=== PATIENT | female | born 1950 | race Caucasian/White ===

== ENCOUNTER 2016-07-19 09:09 | Outpatient (RCR) | payer MEDICARE ==
[~2016-07-19 09:09] MED LIST: AMLO5TAB2 PO; ASP81CT PO; ASPI-84 PO; ATOR10TA PO; ATOR40TA PO; ATOR40TA70 PO; CLPD75T PO; CPR500T PO; GLIP5TAB13 PO; GLMP4T PO; HYDR-1231 PO; HYDR-707 PO; HYDR-757 PO; INSU100I14 SQ; INSU100I16 SQ; IRB150T PO; LEVO750T6 PO; LISI40TA PO; LSNP10T PO; LSNP20T PO; MECL25TA56 PO; METF-380 PO; METO-270 PO; METO25TA PO; MTP50T PO; NAPR-684 PO; PRM25T PO; TRM50T PO
[2016-07-19 09:19] LABS: BASOPHILS # (AUTO) 0.1 10^3/uL (0.0-0.1); BASOPHILS % (AUTO) 0 % (0-10); EOSINOPHILS # (AUTO) 0.2 10^3/uL (0.0-0.3); EOSINOPHILS % (AUTO) 1 % (0-10); LYMPHOCYTES # (AUTO) 12.8 X 10^3 (1.0-4.0); LYMPHOCYTES % (AUTO) 75 % (12-44); MEAN CORPUSCULAR HEMOGLOBIN 29 PG (25-34); MEAN CORPUSCULAR HGB CONC 32 G/DL (32-36); MEAN CORPUSCULAR VOLUME 92 FL (80-99); MEAN PLATELET VOLUME 12.5 FL (7.4-10.4); MONOCYTES # (AUTO) 0.6 X 10^3 (0.0-1.0); MONOCYTES % (AUTO) 4 % (0-12); NEUTROPHILS # (AUTO) 3.3 X 10^3 (1.8-7.8); NEUTROPHILS % (AUTO) 19 % (42-75); PLATELET COUNT 184 10^3/uL (130-400); RED BLOOD COUNT 4.39 10^6/uL (4.35-5.85); RED CELL DISTRIBUTION WIDTH 14.4 % (10.0-14.5)
[2016-07-19 09:47] LABS: ALANINE AMINOTRANSFERASE 24 U/L (0-55); ALBUMIN 4.3 G/DL (3.2-4.5); ANION GAP 9 MMOL/L (5-14); ASPARTATE AMINO TRANSFERASE 21 U/L (5-34); BILIRUBIN,TOTAL 0.7 MG/DL (0.1-1.0); BLOOD UREA NITROGEN 19 MG/DL (7-18); BUN/CREATININE RATIO 24; CALCIUM 9.2 MG/DL (8.5-10.1); CARBON DIOXIDE 25 MMOL/L (21-32); CHLORIDE 108 MMOL/L (98-107); GFR ESTIMATED > 60; GLUCOSE 90 MG/DL (70-105); LACTATE DEHYDROGENASE 210 U/L (125-220); POTASSIUM 3.7 MMOL/L (3.6-5.0); SODIUM 142 MMOL/L (135-145); TOTAL PROTEIN 6.7 G/DL (6.4-8.2)
== END 2016-10-17 | disposition home or self-care (01) ==
LOC: ONC 09:09
PROVIDERS: ATTEND Internal Medicine Hematology & Oncology
DX: C91.10 Chronic lymphocytic leukemia of B-cell type not having achieved remission (principal); E11.9 Type 2 diabetes mellitus without complications; I10 Essential (primary) hypertension; Z79.4 Long term (current) use of insulin; Z79.899 Other long term (current) drug therapy
CPT/HCPCS: 36415; 80053; 83615; 85025; 99213

== ENCOUNTER 2016-11-20 16:06 | Emergency (ER) | payer MEDICARE ==
[~2016-11-20] VITALS: Ht 160 cm; Wt 86.2 kg
--- NOTE | 2016-11-20 17:08 | Diagnostic Imaging Report ---
PA and lateral views of the chest. INDICATION: Cough and congestion. FINDINGS: The lungs are clear. The heart size is normal. No effusion or pneumothorax. Mediastinum and ajay appear unremarkable. IMPRESSION: Unremarkable exam. Dictated by: Dictated on workstation # [id number]
[2016-11-20] MEDS ORDERED: PRD10T PO (17:43)
[2016-11-20] MEDS ORDERED: AZIT250T5 PO (17:43)
[2016-11-20] MEDS ORDERED: FLUT9.9S NSEACH (17:43)
--- NOTE | 2016-11-20 17:44 | ED General ---
General Chief Complaint: Chest Wall/Rib Pain Stated Complaint: COUGH/BACK PAIN Nursing Triage Note: PT STATES COUGH FOR ABOUT 10 DAYS, CHESTWALL PAIN FROM COUGHING. Nursing Sepsis Screen: No Definite Risk Source of Information: Patient Exam Limitations: No Limitations History of Present Illness Time Seen by Provider: 16:30 Initial Comments Willa is a 66-year-old woman who presents to the emergency room with complaints of cough with associated chest pain that radiates into her back. Pain is worse with coughing, sneezing, and inspiration. She reports feeling flushed but is not febrile. She has been feeling ill for about 2 weeks and symptoms have worsened over the past 2 days. She has some sneezing and constant runny nose as well. She has leukemia for which she sees Dr. Pearson. She also is a diabetic. Allergies and Home Medications Allergies Coded Allergies: Kavitha Known Allergies (Verified Allergy, Unknown, 10/25/15) Home Medications Aspirin 81 Mg Chew, 81 MG PO DAILY, (Reported) Atorvastatin Calcium 40 Mg Tablet, 40 MG PO HS, (Reported) Azithromycin 250 Mg Tablet, 250 MG PO UD, #6 TAKE 2 TABLETS ON DAY ONE THEN TAKE 1 TABLET DAILY FOR FOUR MORE DAYS Prescribed by: EDWIN ADAMS on 11/20/161742 Clopidogrel 75 Mg Tablet, 75 MG PO DAILY, (Reported) Fluticasone Propionate 9.9 Ml [place].susp, 2 SPRAYS NSEACH DAILY, #1 Prescribed by: EDWIN ADAMS on 11/20/161742 Insulin Aspart 300 Units/3 Ml Solution, 30 UNITS SQ TIDAC, (Reported) Insulin Detemir 100 Unit/1 Ml Insuln.pen, 45 UNIT SQ BID, (Reported) Lisinopril 40 Mg Tablet, 40 MG PO DAILY, (Reported) Loratadine 10 Mg Tablet, 10 MG PO DAILY, #30 Ref 11 Prescribed by: EDWIN ADAMS on 11/20/161745 Metoprolol Succinate 25 Mg Tab.er.24h, 25 MG PO DAILY, #90 (Reported) Prednisone 10 Mg Tab, 10 MG PO DAILY, #5 Prescribed by: EDWIN ADAMS on 11/20/161742 Constitutional: see HPI EENTM: see HPI Respiratory: see HPI Cardiovascular: no symptoms reported Gastrointestinal: no symptoms reported Genitourinary: no symptoms reported : No Musculoskeletal: see HPI Skin: no symptoms reported Psychiatric/Neurological: No Symptoms Reported Hematologic/Lymphatic: No Symptoms Reported Past Mbnjvih-Ljzhuh-Zbzhqa Hx Patient Social History Alcohol Use: Denies Use Recreational Drug Use: No Smoking Status: Never a Smoker Recent Foreign Travel: No Contact w/Someone Who Travel: No Recent Infectious Disease Expo: No Recent Hopitalizations: No (HIGH BLOOD SUGAR OVER THE PAST 20 YEARS, CHILDBIRTH X 4, TUBAL) Immunizations Up To Date Tetanus Booster (TDap): Less than 5yrs Date of Pneumonia Vaccine: May 06, 2013 Date of Influenza Vaccine: May 06, 2015 Seasonal Allergies Seasonal Allergies: No Surgeries HX Surgeries: Yes (TUBAL 1978, D&C 1999) Surgeries: 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 Respiratory Hx Respiratory Disorders: No Cardiovascular Hx Cardiac Disorders: Yes Cardiac Disorders: High Cholesterol, Hypertension Neurological Hx Neurological Disorders: Yes Neurological Disorders: Stroke Reproductive System Hx Reproductive Disorders: Yes (D&C 1999 FOR HEAVY MENSTRUAL BLEEDING) Genitourinary Hx Genitourinary Disorders: Yes Genitourinary Disorders: Renal Failure Gastrointestinal Hx Gastrointestinal Disorders: Yes Gastrointestinal Disorders: Gastroesophageal Reflux Musculoskeletal Hx Musculoskeletal Disorders: Yes (ARTHRITIS) Musculoskeletal Disorders: Arthritis Endocrine Hx Endocrine Disorders: Yes Endocrine Disorders: Diabetes, Insulin dep HEENT HX ENT Disorders: Yes Cancer Hx Cancer: Yes Cancer: Leukemia Psychosocial Hx Psychiatric Problems: No Integumentary HX Skin/Integumentary Disorder: No Blood Transfusions Hx Blood Disorders: No Physical Exam Vital Signs Vital Sign - Last 12Hours 11/20/16 16:20 Temp 97.9 Pulse 84 Resp 20 B/P (MAP) 179/74 Pulse Ox 97 O2 Delivery Room Air Capillary Refill : Less Than 3 Seconds General Appearance: No Apparent Distress, WD/WN HEENT: PERRL/EOMI, TMs Normal, Normal ENT Inspection, Pharynx Normal Neck: Normal Inspection Respiratory: Lungs Clear, Normal Breath Sounds, No Accessory Muscle Use, No Respiratory Distress, Wheezing (Wheezing and induced cough with forced expiration), Other (Mild tenderness to palpation over the chest) Cardiovascular: Regular Rate, Rhythm, No Edema, Normal Peripheral Pulses Gastrointestinal: Non Tender, Soft Progress/Results/Core Measures Results/Orders My Orders Vital Signs/I&O Blood Pressure Mean: 109 Progress Note : Progress Note Chest x-ray was read as negative by the radiologist. However, by my interpretation there is some subtle haziness in the left lower lung. Azithromycin is being prescribed as a precaution since cough has been persistent for a couple of weeks. Patient will also be treated for allergies with antihistamine, prednisone, and Flonase. She was instructed to monitor her blood sugars closely while on steroids. Diagnostic Imaging Diagonstic Imaging: Xray Plain Films/CT/US/NM/MRI: chest Comments Chest x-ray viewed by me and report reviewed. See report below: NAME: WILLA BROCK [facility] REC#: [id number] PT STATUS: DEP ER : 1950 PHYSICIAN: EDWIN MARQUEZ MD ADMIT DATE: 11/20/16/ER Signed Date of Exam: 11/20/16 CHEST PA/LAT (2 VIEW) PA and lateral views of the chest. INDICATION: Cough and congestion. FINDINGS: The lungs are clear. The heart size is normal. No effusion or pneumothorax. Mediastinum and ajay appear unremarkable. IMPRESSION: Unremarkable exam. Dictated by: Dictated on workstation # [id number] Dict: 11/20/16 1704 Trans: 11/21/16 0800 Interpreted by: KANDI YATES MD Electronically signed by: KANDI YATES MD 11/21/16 0800 Departure Impression Impression: Primary Impression: Acute bronchitis Qualified Codes: J20.9 - Acute bronchitis, unspecified Additional Impression: Allergic rhinitis Qualified Codes: J30.9 - Allergic rhinitis, unspecified Disposition: 01 HOME, SELF-CARE Condition: Stable Departure-Patient Inst. Decision time for Depature: 17:40 Referrals: [facility] (PCP) Primary Care Physician DELLA MCGEE (Family) Primary Care Physician Patient Instructions: Acute Bronchitis, Adult (DC) Add. Discharge Instructions: Complete your antibiotic as prescribed. Start the steroids, antihistamine, and Flonase as prescribed. Keep your appointment with your doctor on Sunday. Return to the emergency room if symptoms worsen. Monitor your blood sugars closely while taking prednisone. All discharge instructions reviewed with patient and/or family. Voiced understanding. Scripts Loratadine (Loratadine) 10 Mg Tablet 10 MG PO DAILY, #30 TAB 11 Refills Prov: EDWIN MARQUEZ MD 11/20/16 Azithromycin (Azithromycin) 250 Mg Tablet 250 MG PO UD, #6 TAB TAKE 2 TABLETS ON DAY ONE THEN TAKE 1 TABLET DAILY FOR FOUR MORE DAYS Prov: EDWIN MARQUEZ MD 11/20/16 Fluticasone Propionate (Flonase Allergy Relief) 9.9 Ml [place].susp 2 SPRAYS NSEACH DAILY, #1 EA Prov: EDWIN MARQUEZ MD 11/20/16 Prednisone (Prednisone) 10 Mg Tab 10 MG PO DAILY, #5 TAB Prov: EDWIN MARQUEZ MD 11/20/16 EDWIN MARQUEZ MD Nov 20, 2016 17:44
[2016-11-20] MEDS ORDERED: LORA10TA7 PO (17:46)
[2016-11-20 17:55] VITALS: BP 179/74
== END 2016-11-20 17:58 | disposition home or self-care (01) ==
LOC: EDUNIT# 16:06 → ER 16:08
DX: J20.9 Acute bronchitis, unspecified (principal); J30.9 Allergic rhinitis, unspecified; R07.89 Other chest pain; E11.9 Type 2 diabetes mellitus without complications; I10 Essential (primary) hypertension; Z79.4 Long term (current) use of insulin; Z79.899 Other long term (current) drug therapy; Z79.02 Long term (current) use of antithrombotics/antiplatelets
CPT/HCPCS: 71020; 99283

== ENCOUNTER 2016-12-20 09:31 | Outpatient (RCR) | payer MEDICARE ==
[~2016-12-20 09:31] MED LIST changes: +AZIT250T12 PO; +FLUT9.9S NSEACH; +LORA10TA7 PO; -METO-270 PO; +METO-387 PO; +PRD10T PO
[2016-12-20 09:35] LABS: BASOPHILS # (AUTO) 0.1 10^3/uL (0.0-0.1); BASOPHILS % (AUTO) 0 % (0-10); EOSINOPHILS # (AUTO) 0.3 10^3/uL (0.0-0.3); EOSINOPHILS % (AUTO) 2 % (0-10); LYMPHOCYTES # (AUTO) 12.3 X 10^3 (1.0-4.0); LYMPHOCYTES % (AUTO) 78 % (12-44); MEAN CORPUSCULAR HEMOGLOBIN 30 PG (25-34); MEAN CORPUSCULAR HGB CONC 32 G/DL (32-36); MEAN CORPUSCULAR VOLUME 94 FL (80-99); MEAN PLATELET VOLUME 11.6 FL (7.4-10.4); MONOCYTES # (AUTO) 0.5 X 10^3 (0.0-1.0); MONOCYTES % (AUTO) 3 % (0-12); NEUTROPHILS # (AUTO) 2.6 X 10^3 (1.8-7.8); NEUTROPHILS % (AUTO) 16 % (42-75); PLATELET COUNT 187 10^3/uL (130-400); RED BLOOD COUNT 4.27 10^6/uL (4.35-5.85); RED CELL DISTRIBUTION WIDTH 15.2 % (10.0-14.5); WHITE BLOOD COUNT 15.7 10^3/uL (4.3-11.0)
[2016-12-20 10:05] LABS: ALANINE AMINOTRANSFERASE 29 U/L (0-55); ALBUMIN 4.2 G/DL (3.2-4.5); ANION GAP 6 MMOL/L (5-14); ASPARTATE AMINO TRANSFERASE 20 U/L (5-34); BILIRUBIN,TOTAL 0.5 MG/DL (0.1-1.0); BLOOD UREA NITROGEN 16 MG/DL (7-18); BUN/CREATININE RATIO 17; CALCIUM 9.6 MG/DL (8.5-10.1); CARBON DIOXIDE 28 MMOL/L (21-32); CHLORIDE 111 MMOL/L (98-107); CREATININE SERUM 0.93 MG/DL (0.60-1.30); GFR ESTIMATED > 60; GLUCOSE 95 MG/DL (70-105); LACTATE DEHYDROGENASE 205 U/L (125-220); POTASSIUM 4.2 MMOL/L (3.6-5.0); SODIUM 145 MMOL/L (135-145); TOTAL PROTEIN 6.6 G/DL (6.4-8.2)
== END 2017-03-20 | disposition home or self-care (01) ==
LOC: ONC 09:31
PROVIDERS: ATTEND Internal Medicine Hematology & Oncology
DX: C91.10 Chronic lymphocytic leukemia of B-cell type not having achieved remission (principal); E11.9 Type 2 diabetes mellitus without complications; I10 Essential (primary) hypertension; Z79.4 Long term (current) use of insulin; Z79.899 Other long term (current) drug therapy
CPT/HCPCS: 36415; 80053; 83615; 85025; 99213

== ENCOUNTER → 2017-03-01 | Outpatient (CLI) | payer MEDICARE ==
[~2017-03-01] MED LIST changes: -AZIT250T12 PO; +AZIT250T5 PO; +METO-270 PO; -METO-387 PO
--- NOTE | 2017-03-01 09:11 | Diagnostic Imaging Report ---
Right breast diagnostic mammogram with tomography. INDICATION: Right nipple discharge. CAD is utilized. COMPARISON: 06/21/2016. FINDINGS: The right breast demonstrates scattered fibroglandular densities. There are scattered benign-appearing calcifications seen. No mass, architectural distortion, or suspicious cluster of calcifications seen. IMPRESSION: There is no mammographic evidence of malignancy. Ultrasound evaluation pending. ACR BI-RADS Category 0: Incomplete. (Needs additional imaging evaluation). Result letter will be mailed to the patient. Note: At least 10% of breast cancer is not imaged by mammography. Dictated by: Dictated on workstation # [id number]
--- NOTE | 2017-03-01 09:35 | Diagnostic Imaging Report ---
Right breast ultrasound. INDICATION: Right nipple discharge. FINDINGS: The four quadrants and retroareolar region of the right breast are scanned with no underlying abnormality seen. IMPRESSION: Negative study. If symptoms persist consider cytology evaluation of the discharge and MRI evaluation. ACR BI-RADS Category 1: Negative. Result letter will be mailed to the patient. Note: At least 10% of breast cancer is not imaged by mammography. Dictated by: Dictated on workstation # [id number]
== END ==
LOC: RAD 08:42
PROVIDERS: ATTEND Nurse Practitioner Family
DX: N64.52 Nipple discharge (principal)
CPT/HCPCS: 76641

== ENCOUNTER 2017-08-09 10:06 | Emergency (ER) | payer MEDICARE ==
[~2017-08-09] VITALS: Ht 160 cm; Wt 89.4 kg
[~2017-08-09 10:06] MED LIST changes: +AZIT250T12 PO; -AZIT250T5 PO; -METO-270 PO; +METO-387 PO
[2017-08-09 10:59] LABS: BILIRUBIN,URINE NEGATIVE (NEGATIVE); CLARITY,URINE CLEAR; COLOR,URINE YELLOW; GLUCOSE, URINE (UA) NEGATIVE (NEGATIVE); KETONES,URINE NEGATIVE (NEGATIVE); LEUKOCYTE ESTERASE ,URINE 1+ (NEGATIVE); NITRITE,URINE NEGATIVE (NEGATIVE); PH,URINE 5 (5-9); PROTEIN,URINE NEGATIVE (NEGATIVE); UROBILINOGEN,URINE NORMAL (NORMAL)
[2017-08-09 11:06] LABS: BACTERIA,URINE TRACE /HPF
--- NOTE | 2017-08-09 11:19 | ED Abdominal Pain ---
General Chief Complaint: Abdominal/GI Problems Stated Complaint: NAUSEA,HEADACHE,ABD PAIN Nursing Triage Note: ARRIVED VIA AMB TO ROOM 10. COMPLAINS OF LOWER ABD PAIN THAT RADIATES TO LEFT SIDE. DENIE FEVERS BUT HAS BEEN BREAKING OUT IN A SWEAT. Sepsis Screen: No Definite Risk Source of Information: Patient Exam Limitations: No Limitations History of Present Illness Time Seen By Provider: 11:18 Initial Comments To ER with nausea without vomiting, left-sided abdominal pain for 3-4 days. No change in bowel habits. No history of this. Urinary frequency. Timing/Duration: 1-2 Days Severity/Quality: Moderate Location: Generalized Abdomen Radiation: No Radiation Activities at Onset: None Allergies and Home Medications Allergies Coded Allergies: NKANo Known Allergies (Verified Allergy, Unknown, 10/25/15) Home Medications Aspirin 81 Mg Chew, 81 MG PO DAILY, (Reported) Atorvastatin Calcium 40 Mg Tablet, 40 MG PO HS, (Reported) Azithromycin 250 Mg Tablet, 250 MG PO UD, #6 TAKE 2 TABLETS ON DAY ONE THEN TAKE 1 TABLET DAILY FOR FOUR MORE DAYS Prescribed by: EDWIN ADAMS on 11/20/161742 Clopidogrel 75 Mg Tablet, 75 MG PO DAILY, (Reported) Fluticasone Propionate 9.9 Ml [place].susp, 2 SPRAYS NSEACH DAILY, #1 Prescribed by: EDWIN ADAMS on 11/20/161742 Insulin Aspart 300 Units/3 Ml Solution, 30 UNITS SQ TIDAC, (Reported) Insulin Detemir 100 Unit/1 Ml Insuln.pen, 45 UNIT SQ BID, (Reported) Lisinopril 40 Mg Tablet, 40 MG PO DAILY, (Reported) Loratadine 10 Mg Tablet, 10 MG PO DAILY, #30 Ref 11 Prescribed by: EDWIN ADAMS on 11/20/161745 Metoprolol Succinate 25 Mg Tab.er.24h, 25 MG PO DAILY, #90 (Reported) Prednisone 10 Mg Tab, 10 MG PO DAILY, #5 Prescribed by: EDWIN ADAMS on 11/20/161742 Review of Systems Constitutional: see HPI, No chills, No fever EENTM: No Symptoms Reported Respiratory: No Symptoms Reported Cardiovascular: No Symptoms Reported Gastrointestinal: See HPI, Abdominal Pain Genitourinary: No Symptoms Reported Musculoskeletal: no symptoms reported Skin: no symptoms reported Psychiatric/Neurological: No Symptoms Reported Endocrine: No Symptoms Reported Past [place]-Lhtrvf-Teer[place] Hx Patient Social History Alcohol Use: Rarely Uses Recreational Drug Use: No Smoking Status: Never a Smoker Recent Foreign Travel: No Contact w/Someone Who Travel: No Recent Infectious Disease Expo: No Recent Hopitalizations: No (HIGH BLOOD SUGAR OVER THE PAST 20 YEARS, CHILDBIRTH X 4, TUBAL) Immunizations Up To Date Tetanus Booster (TDap): Less than 5yrs Date of Pneumonia Vaccine: May 06, 2013 Date of Influenza Vaccine: May 06, 2015 Seasonal Allergies Seasonal Allergies: No Surgeries History of Surgeries: Yes (TUBAL 1978, D&C 1999) Surgeries: 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 Respiratory History of Respiratory Disorde: No Cardiovascular History of Cardiac Disorders: Yes Cardiac Disorders: High Cholesterol, Hypertension Neurological History of Neurological Disord: Yes Neurological Disorders: Stroke Reproductive System Hx Reproductive Disorders: Yes (D&C 1999 FOR HEAVY MENSTRUAL BLEEDING) Genitourinary Genitourinary Disorders: Renal Failure Gastrointestinal History of Gastrointestinal Di: Yes Gastrointestinal Disorders: Gastroesophageal Reflux Musculoskeletal History of Musculoskeletal Dis: Yes (ARTHRITIS) Musculoskeletal Disorders: Arthritis Endocrine History of Endocrine Disorders: Yes Endocrine Disorders: Diabetes, Insulin dep Cancer History of Cancer: Yes Cancer: Leukemia Psychosocial History of Psychiatric Problem: No Integumentary History of Skin or Integumenta: No Blood Transfusions History of Blood Disorders: No Physical Exam Vital Signs VS - Last 72 Hours, by Label 08/09/17 10:22 Temp 98.3 Pulse 64 Resp 18 B/P (MAP) 142/68 (92) Pulse Ox 97 Capillary Refill : Less Than 3 Seconds General Appearance: WD/WN, no apparent distress HEENT: PERRL/EOMI, normal ENT inspection Respiratory: normal breath sounds, no respiratory distress, no accessory muscle use Cardiovascular: regular rate, rhythm, no murmur Gastrointestinal: normal bowel sounds, soft, tenderness Extremities: normal range of motion, non-tender Neurologic/Psychiatric: alert, normal mood/affect, oriented x 3 Skin: normal color, warm/dry Progress/Results/Core Measures Results/Orders Lab Results Laboratory Tests Test 08/09/17 10:52 08/09/17 11:47 Range/Units Urine Color YELLOW Urine Clarity CLEAR Urine pH 5 5-9 Urine Specific [place] 1.020 1.016-1.022 Urine Protein NEGATIVE NEGATIVE Urine Glucose (UA) NEGATIVE NEGATIVE Urine Ketones NEGATIVE NEGATIVE Urine Nitrite NEGATIVE NEGATIVE Urine Bilirubin NEGATIVE NEGATIVE Urine Urobilinogen NORMAL NORMAL MG/DL Urine Leukocyte Esterase 1+ H NEGATIVE Urine RBC (Auto) 4+ H NEGATIVE Urine RBC 10-25 H /HPF Urine WBC 2-5 /HPF Urine Squamous Epithelial Cells 5-10 /HPF Urine Crystals NONE /LPF Urine Bacteria TRACE /HPF Urine Casts NONE /LPF Urine Mucus SMALL H /LPF Urine Culture Indicated NO White Blood Count 16.5 H 4.3-11.0 10^3/uL Red Blood Count 4.53 4.35-5.85 10^6/uL Hemoglobin 13.4 11.5-16.0 G/DL Hematocrit 36 35-52 % Mean Corpuscular Volume 79 L 80-99 FL Mean Corpuscular Hemoglobin 30 25-34 PG Mean Corpuscular Hemoglobin Concent 37 H 32-36 G/DL Red Cell Distribution Width 14.2 10.0-14.5 % Platelet Count 163 130-400 10^3/uL Mean Platelet Volume 11.3 H 7.4-10.4 FL Neutrophils (%) (Auto) 21 L 42-75 % Lymphocytes (%) (Auto) 74 H 12-44 % Monocytes (%) (Auto) 3 0-12 % Eosinophils (%) (Auto) 1 0-10 % Basophils (%) (Auto) 0 0-10 % Neutrophils # (Auto) 3.5 1.8-7.8 X 10^3 Lymphocytes # (Auto) 12.3 H 1.0-4.0 X 10^3 Monocytes # (Auto) 0.5 0.0-1.0 X 10^3 Eosinophils # (Auto) 0.2 0.0-0.3 10^3/uL Basophils # (Auto) 0.1 0.0-0.1 10^3/uL Neutrophils % (Manual) 18 % Lymphocytes % (Manual) 78 % Monocytes % (Manual) 3 % Reactive Lymphocytes 1 % Anisocytosis SLIGHT Microcytosis SLIGHT Sodium Level 142 135-145 MMOL/L Potassium Level 4.3 3.6-5.0 MMOL/L Chloride Level 106 98-107 MMOL/L Carbon Dioxide Level 25 21-32 MMOL/L Anion Gap 11 5-14 MMOL/L Blood Urea Nitrogen 16 7-18 MG/DL Creatinine 0.83 0.60-1.30 MG/DL Estimat Glomerular Filtration Rate > 60 BUN/Creatinine Ratio 19 Glucose Level 144 H 70-105 MG/DL Calcium Level 9.9 8.5-10.1 MG/DL My Orders Orders - 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 APRN Cbc With Automated Diff (08/09/17 10:43) Basic Metabolic Panel (08/09/17 10:43) Ua Culture If Indicated (08/09/17 10:43) Saline Lock/Iv-Start (08/09/17 11:15) Ct Abd/Pelvis Wo(Kidney Stone) (08/09/17 11:23) Ketorolac Injection (Toradol Injection) (08/09/17 11:30) Manual Differential (08/09/17 11:47) Ondansetron Injection (Zofran Injectio (08/09/17 12:45) Medications Given in ED Current Medications Medications Dose Ordered Sig/Sherrie Route Start Time Stop Time Status Last Admin Dose Admin Ketorolac Tromethamine 30 mg ONCE ONCE IVP 08/09/17 11:30 08/09/17 11:31 DC 08/09/17 12:11 30 MG Ondansetron HCl 4 mg ONCE ONCE IVP 08/09/17 12:45 08/09/17 12:46 08/09/17 12:41 4 MG Vital Signs/I&O Vital Sign - Last 12Hours 08/09/17 10:22 Temp 98.3 Pulse 64 Resp 18 B/P (MAP) 142/68 (92) Pulse Ox 97 Blood Pressure Mean: 92 Departure Communication (Admissions) Progress Notes I did discuss with the patient that the combination of urinary frequency and urgency, hematuria, unilateral abdominal pain on the left side may represent a kidney stone that she has past though we do not see any stones on CT currently. I discussed the elevated white cells on CBC with her. She states they're always high because she has leukemia. I discussed with her and her daughter return precautions which would include fevers, worsening pain or nausea. Impression Impression: Primary Impression: Hematuria Additional Impression: Left sided abdominal pain Disposition: 01 HOME, SELF-CARE Condition: Improved Departure-Patient Inst. Decision time for Depature: 12:46 Referrals: [facility] (PCP) Primary Care Physician DELLA MCGEE (Family) Primary Care Physician Patient Instructions: Acute Abdomen (Belly Pain), Adult (DC), Blood in the Urine (Hematuria) in Adults Add. Discharge Instructions: 1. Follow-up with your doctor as soon as possible. Call today to make an appointment to be seen either tomorrow or the first of the week. Return to the emergency room All discharge instructions reviewed with patient and/or family. Voiced understanding. Scripts Ondansetron (Zofran Odt) 8 Mg Tab.rapdis 8 MG PO Q6H Y for NAUSEA/VOMITING-1ST LINE, #10 TAB Prov: 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 APRN 08/09/17 Hydrocodone/Acetaminophen ([place] 5-325 Tablet) 1 Each Tablet 1 EACH PO Q6H Y for PAIN-MODERATE TO SEVERE, #10 TAB Prov: 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 APRN 08/09/17 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 APRN Aug 09, 2017 11:19
[2017-08-09] MEDS ORDERED: KETOROLAC 30 MG/ML VIAL IVP ONE (11:30)
[2017-08-09 11:55] LABS: BASOPHILS # (AUTO) 0.1 10^3/uL (0.0-0.1); BASOPHILS % (AUTO) 0 % (0-10); EOSINOPHILS # (AUTO) 0.2 10^3/uL (0.0-0.3); EOSINOPHILS % (AUTO) 1 % (0-10); HEMATOCRIT 36 % (35-52); HEMOGLOBIN 13.4 G/DL (11.5-16.0); LYMPHOCYTES # (AUTO) 12.3 X 10^3 (1.0-4.0); LYMPHOCYTES % (AUTO) 74 % (12-44); MEAN CORPUSCULAR HEMOGLOBIN 30 PG (25-34); MEAN CORPUSCULAR HGB CONC 37 G/DL (32-36); MEAN CORPUSCULAR VOLUME 79 FL (80-99); MEAN PLATELET VOLUME 11.3 FL (7.4-10.4); MONOCYTES # (AUTO) 0.5 X 10^3 (0.0-1.0); MONOCYTES % (AUTO) 3 % (0-12); NEUTROPHILS # (AUTO) 3.5 X 10^3 (1.8-7.8); NEUTROPHILS % (AUTO) 21 % (42-75); PLATELET COUNT 163 10^3/uL (130-400); RED BLOOD COUNT 4.53 10^6/uL (4.35-5.85); RED CELL DISTRIBUTION WIDTH 14.2 % (10.0-14.5); WHITE BLOOD COUNT 16.5 10^3/uL (4.3-11.0)
[2017-08-09 12:17] LABS: BUN/CREATININE RATIO 19; CALCIUM 9.9 MG/DL (8.5-10.1); CARBON DIOXIDE 25 MMOL/L (21-32); CHLORIDE 106 MMOL/L (98-107); CREATININE SERUM 0.83 MG/DL (0.60-1.30); GFR ESTIMATED > 60; GLUCOSE 144 MG/DL (70-105); POTASSIUM 4.3 MMOL/L (3.6-5.0); SODIUM 142 MMOL/L (135-145)
--- NOTE | 2017-08-09 12:18 | Diagnostic Imaging Report ---
PROCEDURE: CT urinary tract, rule out kidney stone. TECHNIQUE: Multiple contiguous axial images were obtained through the abdomen and pelvis without the use of intravenous contrast. DATE: August 09, 2017. COMPARISON: CT neck, chest, abdomen and pelvis December 18, 2012. INDICATION: 67-year-old female, bilateral lower quadrant abdominal pain. FINDINGS: There are limitations for evaluation of the abdominal organs, neoplastic processes, abscess, and limited evaluation of the vasculature relating to the lack of intravenous contrast. The visualized portions of the lung bases are clear. The dome of the liver is not entirely included in the [id number]. The liver is normal in size and contour. There is cholelithiasis without findings to suggest acute cholecystitis. There is no intrahepatic or extrahepatic bile duct dilation. The main pancreatic duct is not abnormally dilated. Unremarkable noncontrast evaluation of the pancreatic parenchyma. The spleen is not enlarged. The adrenal glands are unremarkable. There is a low-attenuation right renal lesion on axial image 63 measuring 1.2 cm in size with internal attenuation of 7 Hounsfield units. This is consistent with a benign renal cyst. There is a low-attenuation 11 mm right renal lesion consistent with benign cyst on axial image 53. There is no identified renal or ureteral stone. The urinary collecting systems are not distended. There is mild bilateral nonspecific perinephric stranding. The urinary bladder is unremarkable. There is diverticulosis without evidence of acute diverticulitis. The appendix is best seen on axial image 88 and adjacent sequential images. There is no evidence of acute appendicitis. There is no free intraperitoneal air. There is no drainable fluid collection. There is no free pelvic fluid. There are atherosclerotic calcifications. There is no identified abnormally enlarged lymph node within the abdomen or pelvis which meets CT size criteria for adenopathy. There is mild to moderate osteoarthritis of both hips. There is degenerative-type enthesopathy. There is no identified acute bony abnormality. IMPRESSION: CT ABDOMEN AND PELVIS. 1. No identified acute abnormality within the abdomen or pelvis. 2. Cholelithiasis without evidence of acute cholecystitis. 3. Benign renal cysts. Dictated by: Dictated on workstation # [id number]
[2017-08-09 12:32] LABS: NEUTROPHILS % (MANUAL) 18 %
[2017-08-09 12:33] LABS: ANISOCYTOSIS SLIGHT; LYMPHOCYTES % (MANUAL) 78 %; MICROCYTOSIS SLIGHT; MONOCYTES % (MANUAL) 3 %; REACTIVE LYMPHOCYTES 1 %
[2017-08-09] MEDS ORDERED: ONDANSETRON 4 MG/2 ML (SDV) Z0FRAN IVP ONE (12:45)
[2017-08-09] MEDS ORDERED: HYDR-757 PO (12:47)
[2017-08-09] MEDS ORDERED: ONDA8TAB9 PO (12:47)
[2017-08-09 13:07] VITALS: BP 145/77
--- OUTSIDE RECORDS SUMMARY | 2017-08-10 22:15 | XMS REPORT ---
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 Active 73258845 Problem Essential hypertension I10 Active 54496593 Problem Type 2 diabetes mellitus with diabetic neuropathy E11.40 Active 29432033 Problem detention current use of insulin Z79.4 Active 696249601 ALLERGIES Substance Reaction Event Type Date Status Milk of Magnesia Unknown Drug Allergy Jul, Active Maalox Unknown Drug Allergy Jul, Active SOCIAL HISTORY No smoking Hx information available PLAN OF CARE Activity Details Follow Up after 08/09/16 Reason:DM VITAL SIGNS Height 66 in 2016-07-19 Weight 192.1 lbs 2016-07-19 Temperature 97.8 degrees Fahrenheit 2016-07-19 Heart Rate 76 bpm 2016-07-19 Respiratory Rate 18 2016-07-19 BMI 31.00 kg/m2 2016-07-19 Blood pressure systolic 146 mmHg 2016-07-19 Blood pressure diastolic 78 mmHg 2016-07-19 MEDICATIONS Medication Instructions Dosage Frequency Start Date End Date Duration Status Lipitor 40 mg Orally Once a day 1 tablet 24h 90 days Active Glimepiride 2mg Orally twice a day 1 tablet 12h 30 day(s) Active Rusty Contour Next EZ strips intradermal tid and prn tid and prn Active Pen [place] 31G X 8 MM 1 Active [place] Contour Monitor w/Device as directed Apr, Active Lexapro 10 mg Orally Once a day 1 tablet 24h 30 day(s) Active Levemir FlexTouch 100 UNIT/ML Subcutaneous 2 times a day per insulin sliding scale protocol 40 units Active Contour Blood Glucose System Test Strips 24h Active Plavix 75 MG Orally Once a day 1 tablet 24h Active NovoLog Flexpen 100 UNIT/ML Subcutaneous with meals INJECT 10 UNITS Active Toprol XL 25 MG Orally 2 times a day 1/2 tablet 12h Active Lisinopril 40 mg Orally Once a day 1 tablet 24h Active RESULTS No Results PROCEDURES Procedure Date Ordered Related Diagnosis Body Site [facility] VISIT ESTABLISHED PATIENT Jul 19, 2016 Office Visit, Est Pt., Level 3 Jul 19, 2016 IMMUNIZATIONS No Known Immunizations
--- OUTSIDE RECORDS SUMMARY | 2017-08-10 22:15 | XMS REPORT ---
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 355584972 Problem Essential hypertension I10 Active 75064185 Problem 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 Active 73731241 Problem Mixed hyperlipidemia E78.2 Active 785984827 ALLERGIES Substance Reaction Event Type Date Status Milk of Magnesia Unknown Drug Allergy Sep, Active Maalox Unknown Drug Allergy Sep, Active SOCIAL HISTORY Never Assessed PLAN OF CARE Activity Details Follow Up 4 Weeks Reason:DM VITAL SIGNS Height 66 in 2016-09-13 Weight 193 lbs 2016-09-13 Temperature 97.9 degrees Fahrenheit 2016-09-13 Heart Rate 70 bpm 2016-09-13 Respiratory Rate 20 2016-09-13 BMI 31.15 kg/m2 2016-09-13 Blood pressure systolic 122 mmHg 2016-09-13 Blood pressure diastolic 80 mmHg 2016-09-13 MEDICATIONS Medication Instructions Dosage Frequency Start Date End Date Duration Status Pen [place] 31G X 8 MM 1 Active Plavix 75 MG Orally Once a day 1 tablet 24h Active Contour Blood Glucose System Test Strips 24h Active Lipitor 40 mg Orally Once a day 1 tablet 24h 90 days Active Lexapro 10 mg Orally Once a day 1 tablet 24h 30 day(s) Active Glimepiride 2mg Orally twice a day 1 tablet 12h 30 day(s) Active Rusty Contour Next EZ strips intradermal tid and prn tid and prn Active Lisinopril 40 mg Orally Once a day 1 tablet 24h 30 Active Toprol XL 25 MG Orally Once a day 1 tablet 24h Active NovoLog Flexpen 100 UNIT/ML Subcutaneous with meals 10 units Active Farxiga 10 mg Orally Once a day 1 tablet 24h Sep, Oct, 28 days Active [employer] Contour Monitor w/Device as directed Apr, Active Levemir FlexTouch 100 UNIT/ML Subcutaneous 2 times a day per insulin sliding scale protocol 40 units Active RESULTS Name Result Date Reference Range A1C (IN HOUSE) 2016-09-13 A1C IN HOUSE 11.6 4.3 - 5.6 % Previous A1c 9.2 Lot [id number] Exp date 06/23 MICROALBUMIN/CREATININE RATIO, URINE 2016-09-13 Creatinine, Urine 220.3 Not Estab. Microalbumin, Urine 50.1 Not Estab. Microalb/Creat Ratio 22.7 0.0-30.0 CMP 2016-09-13 Glucose, Serum 184 65-99 BUN 17 8-27 Creatinine, Serum 0.74 0.57-1.00 eGFR If NonAfricn Am 85 >59 eGFR If Africn Am 98 >59 BUN/Creatinine Ratio 23 11-26 Sodium, Serum 142 134-144 Potassium, Serum 4.3 3.5-5.2 Chloride, Serum 100 96-106 Carbon Dioxide, Total 26 18-29 Calcium, Serum 9.6 8.7-10.3 Protein, Total, Serum 6.8 6.0-8.5 Albumin, Serum 4.5 3.6-4.8 Globulin, Total 2.3 1.5-4.5 A/G Ratio 2.0 1.1-2.5 Bilirubin, Total 0.6 0.0-1.2 Alkaline Phosphatase, S 90 39-117 AST (SGOT) 20 0-40 ALT (SGPT) 24 0-32 MICROALBUMIN, URINE (IN HOUSE) 2016-09-13 MICROALBUMIN Abnormal Lot # [id number] Exp date Clarity Clear Color Dark Yellow ALB 80mg/L CRE 300mg/dL A:C (IN HOUSE) 30-300mg/g Control Control Lot # Exp date PROCEDURES Procedure Date Ordered Result Body Site GLYCATED HEMOGLOBIN TEST Sep 13, 2016 [facility] Sep 13, 2016 [facility] VISIT ESTABLISHED PATIENT Sep 13, 2016 MICROALBUMIN, SEMIQUANT Sep 13, 2016 VENIPUNCT, ROUTINE* Sep 13, 2016 IMMUNIZATIONS No Known Immunizations MEDICAL (GENERAL) HISTORY Type Description Date Medical History hypertension Medical History hyperlipidemia Medical History type II diabetes Medical History Arthritis-knees and hips Medical History stroke-05/2011 Medical History leukemia (CML)--dx November 2012--Sees Michel at [facility] Medical History Dysphagia, unspecified Medical History Unspecified hereditary and idiopathic peripheral neuropathy Surgical History dilatation and curettage 03/2000 Surgical History tubal ligation 1978 Hospitalization History Via [facility] admit for stroke 05/2011 Hospitalization History Via [facility] for elevated blood sugars 09/2010
--- OUTSIDE RECORDS SUMMARY | 2017-08-10 22:15 | XMS REPORT ---
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 494870783 Problem Essential hypertension I10 Active 52198520 Problem 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 Active 62555713 Problem Mixed hyperlipidemia E78.2 Active 925102641 ALLERGIES No Information SOCIAL HISTORY Never Assessed PLAN OF CARE VITAL SIGNS MEDICATIONS Medication Instructions Dosage Frequency Start Date End Date Duration Status BD Ultra-Fine Pen [place] 29G X 12.7MM subcutaneously 5 times per day Inject December, Active RESULTS No Results PROCEDURES No Known procedures IMMUNIZATIONS No Known Immunizations MEDICAL (GENERAL) HISTORY Type Description Date Medical History hypertension Medical History hyperlipidemia Medical History type II diabetes Medical History Arthritis-knees and hips Medical History stroke-05/2011 Medical History leukemia (CML)--dx November 2012--Sees Michel at [facility] Medical History Dysphagia, unspecified Medical History Unspecified hereditary and idiopathic peripheral neuropathy Surgical History dilatation and curettage 03/2000 Surgical History tubal ligation 1979 Hospitalization History Via [facility] admit for stroke 05/2011 Hospitalization History Via [facility] for elevated blood sugars 09/2010
--- OUTSIDE RECORDS SUMMARY | 2017-08-10 22:16 | XMS REPORT ---
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 143282493 Problem Essential hypertension I10 Active 12836084 Problem 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 Active 48759353 Problem Mixed hyperlipidemia E78.2 Active 633291226 ALLERGIES Substance Reaction Event Type Date Status Milk of Magnesia Unknown Drug Allergy Sep, Active Maalox Unknown Drug Allergy Sep, Active SOCIAL HISTORY Never Assessed PLAN OF CARE Activity Details Follow Up prn Reason: VITAL SIGNS Height 66 in 2016-09-21 Weight 192 lbs 2016-09-21 BMI 30.99 kg/m2 2016-09-21 Blood pressure systolic 110 mmHg 2016-09-21 Blood pressure diastolic 80 mmHg 2016-09-21 MEDICATIONS Medication Instructions Dosage Frequency Start Date End Date Duration Status Lexapro 10 mg Orally Once a day 1 tablet 24h 30 day(s) Active Lisinopril 40 mg Orally Once a day 1 tablet 24h 30 Active Rusty Contour Monitor w/Device as directed Apr, Active Levemir FlexTouch 100 UNIT/ML Subcutaneous 2 times a day per insulin sliding scale protocol 40 units Active Lipitor 40 mg Orally Once a day 1 tablet 24h 90 Active Farxiga 10 mg Orally Once a day 1 tablet 24h Sep, Oct, 28 days Active Glimepiride 2mg Orally twice a day 1 tablet 12h 30 day(s) Active Toprol XL 25 MG Orally Once a day 1 tablet 24h Active NovoLog Flexpen 100 UNIT/ML Subcutaneous with meals 10 units Active Contour Blood Glucose System Test Strips 24h Active Pen [place] 31G X 8 MM 1 Active Plavix 75 MG Orally Once a day 1 tablet 24h Active Rusty Contour Next EZ strips intradermal tid and prn tid and prn Active RESULTS No Results PROCEDURES Procedure Date Ordered Result Body Site DRAIN/INJECT, JOINT/BURSA Sep 21, 2016 [facility] ESTABL[facility] PATIENT Sep 21, 2016 DEPO MEDROL 80 MG/ML Sep 21, 2016 IMMUNIZATIONS No Known Immunizations MEDICAL (GENERAL) HISTORY Type Description Date Medical History hypertension Medical History hyperlipidemia Medical History type II diabetes Medical History Arthritis-knees and hips Medical History stroke-05/2011 Medical History leukemia (CML)--dx November 2012--Sees Michel at [facility] Medical History Dysphagia, unspecified Medical History Unspecified hereditary and idiopathic peripheral neuropathy Surgical History dilatation and curettage 03/2000 Surgical History tubal ligation 1979 Hospitalization History Via [facility] admit for stroke 05/2011 Hospitalization History Via [facility] for elevated blood sugars 09/2010
--- OUTSIDE RECORDS SUMMARY | 2017-08-10 22:16 | XMS REPORT ---
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
--- OUTSIDE RECORDS SUMMARY | 2017-08-10 22:18 | XMS REPORT | Continuity of Care Document ---
Author Author [facility] Address Unknown Phone Unavailable Allergies Active Description Code Type Severity Reaction Onset Reported/Identified Relationship to Patient Clinical Status Yes Maalox Drug Allergy N/A N/A 10/17/2010 Yes Milk of Magnesia Drug Allergy N/A N/A 10/17/2010 Yes Maalox Drug Allergy 10/17/2010 Yes Milk of Magnesia Drug Allergy 10/17/2010 Yes nonsteroidal anti-inflammatory agent Drug Allergy 10/17/2010 Yes NKANo Known Allergies NKA Miscellaneous Allergy Unknown N/A 10/25/2015 Medications There is no data. Problems Date Dx Coded Attending Type Code Diagnosis Diagnosed By 10/08/2010 Ot 250.02 10/08/2010 Ot 285.9 10/08/2010 Ot 401.9 10/08/2010 Ot 593.9 10/08/2010 Ot V58.67 10/08/2010 Ot V58.69 10/17/2010 TIN OCASIO MD 250.02 DIABETES MELLITUS TYPE 2 - UNCOMPLICATED, UNCONTROLLED 10/17/2010 TIN OCASIO MD 585.9 CHRONIC RENAL FAILURE 10/17/2010 CATALINO PEREZ DO 250.02 DIABETES MELLITUS TYPE 2 - UNCOMPLICATED, UNCONTROLLED 10/17/2010 CATALINO PEREZ DO 585.9 CHRONIC RENAL FAILURE 10/17/2010 DANIEL CRISTINA MD 250.02 DIABETES MELLITUS TYPE 2 - UNCOMPLICATED, UNCONTROLLED 10/17/2010 DANIEL CRISTINA MD 585.9 CHRONIC RENAL FAILURE 10/17/2010 250.02 DIABETES MELLITUS TYPE 2 - UNCOMPLICATED, UNCONTROLLED 10/17/2010 585.9 CHRONIC RENAL FAILURE 10/17/2010 250.02 DIABETES MELLITUS TYPE 2 - UNCOMPLICATED, UNCONTROLLED 10/17/2010 585.9 CHRONIC RENAL FAILURE 10/17/2010 250.02 DIABETES MELLITUS TYPE 2 - UNCOMPLICATED, UNCONTROLLED 10/17/2010 585.9 CHRONIC RENAL FAILURE 10/17/2010 250.02 DIABETES MELLITUS TYPE 2 - UNCOMPLICATED, UNCONTROLLED 10/17/2010 585.9 CHRONIC RENAL FAILURE 10/17/2010 250.02 DIABETES MELLITUS TYPE 2 - UNCOMPLICATED, UNCONTROLLED 10/17/2010 585.9 CHRONIC RENAL FAILURE 10/17/2010 DANIEL CRISTINA MD 250.02 DIABETES MELLITUS TYPE 2 - UNCOMPLICATED, UNCONTROLLED 10/17/2010 DANIEL CRISTINA MD 585.9 CHRONIC RENAL FAILURE 10/17/2010 DANIEL CRISTINA MD 250.02 DIABETES MELLITUS TYPE 2 - UNCOMPLICATED, UNCONTROLLED 10/17/2010 DANIEL CRISTINA MD 585.9 CHRONIC RENAL FAILURE 10/17/2010 CATALINO PEREZ DO K 250.02 DIABETES MELLITUS TYPE 2 - UNCOMPLICATED, UNCONTROLLED 10/17/2010 CATALINO PEREZ DO K 585.9 CHRONIC RENAL FAILURE 10/17/2010 TIN OCASIO MD 250.02 DIABETES MELLITUS TYPE 2 - UNCOMPLICATED, UNCONTROLLED 10/17/2010 TIN OCASIO MD 585.9 CHRONIC RENAL FAILURE 10/17/2010 MADL ECHOCARDIOGRAPH TECHNICIAN, DELLA L 250.02 DIABETES MELLITUS TYPE 2 - UNCOMPLICATED, UNCONTROLLED 10/17/2010 MADL ECHOCARDIOGRAPH TECHNICIAN, DELLA L 585.9 CHRONIC RENAL FAILURE 10/17/2010 MADL ECHOCARDIOGRAPH TECHNICIAN, DELLA L 250.02 DIABETES MELLITUS TYPE 2 - UNCOMPLICATED, UNCONTROLLED 10/17/2010 MADL ECHOCARDIOGRAPH TECHNICIAN, DELLA L 585.9 CHRONIC RENAL FAILURE 10/17/2010 MADL ECHOCARDIOGRAPH TECHNICIAN, DELLA L 250.02 DIABETES MELLITUS TYPE 2 - UNCOMPLICATED, UNCONTROLLED 10/17/2010 MADL ECHOCARDIOGRAPH TECHNICIAN, DELLA L 585.9 CHRONIC RENAL FAILURE 10/17/2010 MADL ECHOCARDIOGRAPH TECHNICIAN, DELLA L 250.02 DIABETES MELLITUS TYPE 2 - UNCOMPLICATED, UNCONTROLLED 10/17/2010 MADL ECHOCARDIOGRAPH TECHNICIAN, DELLA L 585.9 CHRONIC RENAL FAILURE 10/17/2010 250.02 DIABETES MELLITUS TYPE 2 - UNCOMPLICATED, UNCONTROLLED 10/17/2010 585.9 CHRONIC RENAL FAILURE 10/17/2010 MADL ECHOCARDIOGRAPH TECHNICIAN, DELLA L 250.02 DIABETES MELLITUS TYPE 2 - UNCOMPLICATED, UNCONTROLLED 10/17/2010 MADL ECHOCARDIOGRAPH TECHNICIAN, DELLA L 585.9 CHRONIC RENAL FAILURE 10/17/2010 WAYNE PEREZ DOA K 250.02 DIABETES MELLITUS TYPE 2 - UNCOMPLICATED, UNCONTROLLED 10/17/2010 CATALINO PEREZ DO 585.9 CHRONIC RENAL FAILURE 10/17/2010 CATALINO PEREZ DO K 250.02 DIABETES MELLITUS TYPE 2 - UNCOMPLICATED, UNCONTROLLED 10/17/2010 CATALINO PEREZ DO 585.9 CHRONIC RENAL FAILURE 11/02/2010 TIN OCASIO MD 250.90 DIABETES MELLITUS TYPE 2 WITH COMPLICATION 11/02/2010 CATALINO PEREZ DO K 250.90 DIABETES MELLITUS TYPE 2 WITH COMPLICATION 11/02/2010 DANIEL CRISTINA MD 250.90 DIABETES MELLITUS TYPE 2 WITH COMPLICATION 11/02/2010 250.90 DIABETES MELLITUS TYPE 2 WITH COMPLICATION 11/02/2010 250.90 DIABETES MELLITUS TYPE 2 WITH COMPLICATION 11/02/2010 250.90 DIABETES MELLITUS TYPE 2 WITH COMPLICATION 11/02/2010 250.90 DIABETES MELLITUS TYPE 2 WITH COMPLICATION 11/02/2010 250.90 DIABETES MELLITUS TYPE 2 WITH COMPLICATION 11/02/2010 DANIEL CRISTINA MD 250.90 DIABETES MELLITUS TYPE 2 WITH COMPLICATION 11/02/2010 DANIEL CRISTINA MD 250.90 DIABETES MELLITUS TYPE 2 WITH COMPLICATION 11/02/2010 CATALINO PREEZ DO K 250.90 DIABETES MELLITUS TYPE 2 WITH COMPLICATION 11/02/2010 TIN OCASIO MD 250.90 DIABETES MELLITUS TYPE 2 WITH COMPLICATION 11/02/2010 MADTaye ECHOCARDIOGRAPH TECHNICIAN, DELLA L 250.90 DIABETES MELLITUS TYPE 2 WITH COMPLICATION 11/02/2010 EVERARDO ECHOCARDIOGRAPH TECHNICIAN, DELLA L 250.90 DIABETES MELLITUS TYPE 2 WITH COMPLICATION 11/02/2010 MADL ECHOCARDIOGRAPH TECHNICIAN, DELLA L 250.90 DIABETES MELLITUS TYPE 2 WITH COMPLICATION 11/02/2010 MADL ECHOCARDIOGRAPH TECHNICIAN, DELLA L 250.90 DIABETES MELLITUS TYPE 2 WITH COMPLICATION 11/02/2010 250.90 DIABETES MELLITUS TYPE 2 WITH COMPLICATION 11/02/2010 EVERARDO ECHOCARDIOGRAPH TECHNICIAN, DELLA L 250.90 DIABETES MELLITUS TYPE 2 WITH COMPLICATION 11/02/2010 CATALINO PEREZ DO K 250.90 DIABETES MELLITUS TYPE 2 WITH COMPLICATION 11/02/2010 CATALINO PEREZ DO K 250.90 DIABETES MELLITUS TYPE 2 WITH COMPLICATION 11/16/2010 TIN OCASIO MD 250.42 DIABETES WITH RENAL MANIFESTATIONS TYPE II OR UNSPECIFIED TYPE UNCONTROLLED 11/16/2010 TIN OCASIO MD 268.9 UNSPECIFIED VITAMIN D DEFICIENCY 11/16/2010 TIN OCASIO MD 782.3 EDEMA 11/16/2010 CATALINO PEREZ DO 250.42 DIABETES WITH RENAL MANIFESTATIONS TYPE II OR UNSPECIFIED TYPE UNCONTROLLED 11/16/2010 CATALINO PEREZ DO 268.9 UNSPECIFIED VITAMIN D DEFICIENCY 11/16/2010 CATALINO PEREZ DO 782.3 EDEMA 11/16/2010 DANIEL CRISTINA MD 250.42 DIABETES WITH RENAL MANIFESTATIONS TYPE II OR UNSPECIFIED TYPE UNCONTROLLED 11/16/2010 DANIEL CRISTINA MD 268.9 UNSPECIFIED VITAMIN D DEFICIENCY 11/16/2010 DANIEL CRISTINA MD 782.3 EDEMA 11/16/2010 250.42 DIABETES WITH RENAL MANIFESTATIONS TYPE II OR UNSPECIFIED TYPE UNCONTROLLED 11/16/2010 268.9 UNSPECIFIED VITAMIN D DEFICIENCY 11/16/2010 782.3 EDEMA 11/16/2010 250.42 DIABETES WITH RENAL MANIFESTATIONS TYPE II OR UNSPECIFIED TYPE UNCONTROLLED 11/16/2010 268.9 UNSPECIFIED VITAMIN D DEFICIENCY 11/16/2010 782.3 EDEMA 11/16/2010 250.42 DIABETES WITH RENAL MANIFESTATIONS TYPE II OR UNSPECIFIED TYPE UNCONTROLLED 11/16/2010 268.9 UNSPECIFIED VITAMIN D DEFICIENCY 11/16/2010 782.3 EDEMA 11/16/2010 250.42 DIABETES WITH RENAL MANIFESTATIONS TYPE II OR UNSPECIFIED TYPE UNCONTROLLED 11/16/2010 268.9 UNSPECIFIED VITAMIN D DEFICIENCY 11/16/2010 782.3 EDEMA 11/16/2010 250.42 DIABETES WITH RENAL MANIFESTATIONS TYPE II OR UNSPECIFIED TYPE UNCONTROLLED 11/16/2010 268.9 UNSPECIFIED VITAMIN D DEFICIENCY 11/16/2010 782.3 EDEMA 11/16/2010 DANIEL CRISTINA MD 250.42 DIABETES WITH RENAL MANIFESTATIONS TYPE II OR UNSPECIFIED TYPE UNCONTROLLED 11/16/2010 DANIEL CRISTINA MD 268.9 UNSPECIFIED VITAMIN D DEFICIENCY 11/16/2010 DANIEL CRISTINA MD 782.3 EDEMA 11/16/2010 DANIEL CRISTINA MD 250.42 DIABETES WITH RENAL MANIFESTATIONS TYPE II OR UNSPECIFIED TYPE UNCONTROLLED 11/16/2010 DANIEL CRISTINA MD 268.9 UNSPECIFIED VITAMIN D DEFICIENCY 11/16/2010 DANIEL CRISTINA MD 782.3 EDEMA 11/16/2010 CATALINO PEREZ DO 250.42 DIABETES WITH RENAL MANIFESTATIONS TYPE II OR UNSPECIFIED TYPE UNCONTROLLED 11/16/2010 PEREZ DO, CATALINO K 268.9 UNSPECIFIED VITAMIN D DEFICIENCY 11/16/2010 PEREZ DO, CATALINO K 782.3 EDEMA 11/16/2010 TIN OCASIO MD 250.42 DIABETES WITH RENAL MANIFESTATIONS TYPE II OR UNSPECIFIED TYPE UNCONTROLLED 11/16/2010 TIN OCASIO MD 268.9 UNSPECIFIED VITAMIN D DEFICIENCY 11/16/2010 TIN OCASIO MD 782.3 EDEMA 11/16/2010 MADL ECHOCARDIOGRAPH TECHNICIAN, DELLA L 250.42 DIABETES WITH RENAL MANIFESTATIONS TYPE II OR UNSPECIFIED TYPE UNCONTROLLED 11/16/2010 MADL ECHOCARDIOGRAPH TECHNICIAN, DELLA L 268.9 UNSPECIFIED VITAMIN D DEFICIENCY 11/16/2010 MADL ECHOCARDIOGRAPH TECHNICIAN, DELLA L 782.3 EDEMA 11/16/2010 MADL ECHOCARDIOGRAPH TECHNICIAN, DELLA L 250.42 DIABETES WITH RENAL MANIFESTATIONS TYPE II OR UNSPECIFIED TYPE UNCONTROLLED 11/16/2010 MADL ECHOCARDIOGRAPH TECHNICIAN, DELLA L 268.9 UNSPECIFIED VITAMIN D DEFICIENCY 11/16/2010 MADL ECHOCARDIOGRAPH TECHNICIAN, DELLA L 782.3 EDEMA 11/16/2010 MADL ECHOCARDIOGRAPH TECHNICIAN, DELLA L 250.42 DIABETES WITH RENAL MANIFESTATIONS TYPE II OR UNSPECIFIED TYPE UNCONTROLLED 11/16/2010 MADL ECHOCARDIOGRAPH TECHNICIAN, DELLA L 268.9 UNSPECIFIED VITAMIN D DEFICIENCY 11/16/2010 MADL ECHOCARDIOGRAPH TECHNICIAN, DELLA L 782.3 EDEMA 11/16/2010 MADL ECHOCARDIOGRAPH TECHNICIAN, DELLA L 250.42 DIABETES WITH RENAL MANIFESTATIONS TYPE II OR UNSPECIFIED TYPE UNCONTROLLED 11/16/2010 MADL ECHOCARDIOGRAPH TECHNICIAN, DELLA L 268.9 UNSPECIFIED VITAMIN D DEFICIENCY 11/16/2010 MADL ECHOCARDIOGRAPH TECHNICIAN, DELLA L 782.3 EDEMA 11/16/2010 250.42 DIABETES WITH RENAL MANIFESTATIONS TYPE II OR UNSPECIFIED TYPE UNCONTROLLED 11/16/2010 268.9 UNSPECIFIED VITAMIN D DEFICIENCY 11/16/2010 782.3 EDEMA 11/16/2010 MADL ECHOCARDIOGRAPH TECHNICIAN, DELLA L 250.42 DIABETES WITH RENAL MANIFESTATIONS TYPE II OR UNSPECIFIED TYPE UNCONTROLLED 11/16/2010 MADL ECHOCARDIOGRAPH TECHNICIAN, DELLA L 268.9 UNSPECIFIED VITAMIN D DEFICIENCY 11/16/2010 MADL ECHOCARDIOGRAPH TECHNICIAN, DELLA L 782.3 EDEMA 11/16/2010 PEREZ DO, CATALINO K 250.42 DIABETES WITH RENAL MANIFESTATIONS TYPE II OR UNSPECIFIED TYPE UNCONTROLLED 11/16/2010 PEREZ DO, CATALINO K 268.9 UNSPECIFIED VITAMIN D DEFICIENCY 11/16/2010 PEREZ DO, CATALINO K 782.3 EDEMA 11/16/2010 PEREZ DO, CATALINO K 250.42 DIABETES WITH RENAL MANIFESTATIONS TYPE II OR UNSPECIFIED TYPE UNCONTROLLED 11/16/2010 PEREZ DO, CATALINO K 268.9 UNSPECIFIED VITAMIN D DEFICIENCY 11/16/2010 PEREZ DO, CATALINO K 782.3 EDEMA 02/22/2011 TIN OCASIO MD 357.2 POLYNEUROPATHY IN DIABETES 02/22/2011 TIN OCASIO MD 368.8 OTHER SPECIFIED VISUAL DISTURBANCES 02/22/2011 PEREZ DO, CATALINO K 357.2 POLYNEUROPATHY IN DIABETES 02/22/2011 PEREZ DO CATALINO K 368.8 OTHER SPECIFIED VISUAL DISTURBANCES 02/22/2011 DANIEL CRISTINA MD 357.2 POLYNEUROPATHY IN DIABETES 02/22/2011 DANIEL CRISTINA MD 368.8 OTHER SPECIFIED VISUAL DISTURBANCES 02/22/2011 357.2 POLYNEUROPATHY IN DIABETES 02/22/2011 368.8 OTHER SPECIFIED VISUAL DISTURBANCES 02/22/2011 357.2 POLYNEUROPATHY IN DIABETES 02/22/2011 368.8 OTHER SPECIFIED VISUAL DISTURBANCES 02/22/2011 357.2 POLYNEUROPATHY IN DIABETES 02/22/2011 368.8 OTHER SPECIFIED VISUAL DISTURBANCES 02/22/2011 357.2 POLYNEUROPATHY IN DIABETES 02/22/2011 368.8 OTHER SPECIFIED VISUAL DISTURBANCES 02/22/2011 357.2 POLYNEUROPATHY IN DIABETES 02/22/2011 368.8 OTHER SPECIFIED VISUAL DISTURBANCES 02/22/2011 DANIEL CRISTINA MD 357.2 POLYNEUROPATHY IN DIABETES 02/22/2011 DANIEL CRISTINA MD 368.8 OTHER SPECIFIED VISUAL DISTURBANCES 02/22/2011 DANIEL CRISTINA MD 357.2 POLYNEUROPATHY IN DIABETES 02/22/2011 DANIEL CRISTINA MD 368.8 OTHER SPECIFIED VISUAL DISTURBANCES 02/22/2011 PEREZ DO CATALINO K 357.2 POLYNEUROPATHY IN DIABETES 02/22/2011 PEREZ DO CATALINO K 368.8 OTHER SPECIFIED VISUAL DISTURBANCES 02/22/2011 TIN OCASIO MD 357.2 POLYNEUROPATHY IN DIABETES 02/22/2011 TIN OCASIO MD 368.8 OTHER SPECIFIED VISUAL DISTURBANCES 02/22/2011 MADL ECHOCARDIOGRAPH TECHNICIAN, DELLA L 357.2 POLYNEUROPATHY IN DIABETES 02/22/2011 MADL ECHOCARDIOGRAPH TECHNICIAN, DELLA L 368.8 OTHER SPECIFIED VISUAL DISTURBANCES 02/22/2011 MADL ECHOCARDIOGRAPH TECHNICIAN, DELLA L 357.2 POLYNEUROPATHY IN DIABETES 02/22/2011 MADL ECHOCARDIOGRAPH TECHNICIAN, DELLA L 368.8 OTHER SPECIFIED VISUAL DISTURBANCES 02/22/2011 MADL ECHOCARDIOGRAPH TECHNICIAN, DELLA L 357.2 POLYNEUROPATHY IN DIABETES 02/22/2011 MADL ECHOCARDIOGRAPH TECHNICIAN, DELLA L 368.8 OTHER SPECIFIED VISUAL DISTURBANCES 02/22/2011 MADL ECHOCARDIOGRAPH TECHNICIAN, DELLA L 357.2 POLYNEUROPATHY IN DIABETES 02/22/2011 MADL ECHOCARDIOGRAPH TECHNICIAN, DELLA L 368.8 OTHER SPECIFIED VISUAL DISTURBANCES 02/22/2011 357.2 POLYNEUROPATHY IN DIABETES 02/22/2011 368.8 OTHER SPECIFIED VISUAL DISTURBANCES 02/22/2011 MADL ECHOCARDIOGRAPH TECHNICIAN, DELLA L 357.2 POLYNEUROPATHY IN DIABETES 02/22/2011 MADL ECHOCARDIOGRAPH TECHNICIAN, DELLA L 368.8 OTHER SPECIFIED VISUAL DISTURBANCES 02/22/2011 PEREZ DO, CATALINO K 357.2 POLYNEUROPATHY IN DIABETES 02/22/2011 PEREZ DO, CATALINO K 368.8 OTHER SPECIFIED VISUAL DISTURBANCES 02/22/2011 PEREZ DO, CATALINO K 357.2 POLYNEUROPATHY IN DIABETES 02/22/2011 PEREZ DO, CATALINO K 368.8 OTHER SPECIFIED VISUAL DISTURBANCES 05/26/2011 Ot 250.00 DIAB ALONDRA WO COMPL, TYPE II OR UNSPEC TY 05/26/2011 Ot 272.4 HYPERLIPIDEMIA NEC/NOS 05/26/2011 Ot 276.8 HYPOPOTASSEMIA 05/26/2011 Ot 401.9 HYPERTENSION NOS 05/26/2011 Ot 434.91 CEREBRAL ART OCCLUSION NOS W CEREBRAL IN 05/26/2011 Ot 729.89 MUSCSKEL SYMPT LIMB NEC 05/26/2011 Ot 780.4 DIZZINESS AND GIDDINESS 05/26/2011 Ot 784.59 OTHER SPEECH DISTURBANCE 05/31/2011 Ot 250.00 DIAB ALONDRA WO COMPL, TYPE II OR UNSPEC TY 05/31/2011 Ot 272.4 HYPERLIPIDEMIA NEC/NOS 05/31/2011 Ot 401.9 HYPERTENSION NOS 05/31/2011 Ot 438.13 LATE EFFECTS OF CEREBROVASCULAR DISEASE, 05/31/2011 Ot 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,HEMIPLEGIA AFFECTING 05/31/2011 Ot 438.89 OTH LATE EFFECT-CEREBROVASCULAR DISEASE 05/31/2011 Ot 780.4 DIZZINESS AND GIDDINESS 05/31/2011 Ot 781.2 ABNORMALITY OF GAIT 05/31/2011 Ot 799.23 IMPULSIVENESS 05/31/2011 Ot V57.1 PHYSICAL THERAPY NEC 05/31/2011 Ot V57.21 ENCOUNTER FOR OCCUPATIONAL THERAPY 05/31/2011 Ot V57.3 CARE INVOLVING SPEECH-LANGUAGE THERAPY 06/01/2011 TIN OACSIO MD 438.9 UNSPECIFIED LATE EFFECTS OF CEREBROVASCULAR DISEASE 06/01/2011 CATALINO PEREZ DO 438.9 UNSPECIFIED LATE EFFECTS OF CEREBROVASCULAR DISEASE 06/01/2011 DANIEL CRISTINA MD 438.9 UNSPECIFIED LATE EFFECTS OF CEREBROVASCULAR DISEASE 06/01/2011 438.9 UNSPECIFIED LATE EFFECTS OF CEREBROVASCULAR DISEASE 06/01/2011 438.9 UNSPECIFIED LATE EFFECTS OF CEREBROVASCULAR DISEASE 06/01/2011 438.9 UNSPECIFIED LATE EFFECTS OF CEREBROVASCULAR DISEASE 06/01/2011 438.9 UNSPECIFIED LATE EFFECTS OF CEREBROVASCULAR DISEASE 06/01/2011 438.9 UNSPECIFIED LATE EFFECTS OF CEREBROVASCULAR DISEASE 06/01/2011 DANIEL CRISTINA MD 438.9 UNSPECIFIED LATE EFFECTS OF CEREBROVASCULAR DISEASE 06/01/2011 DANIEL CRISTINA MD 438.9 UNSPECIFIED LATE EFFECTS OF CEREBROVASCULAR DISEASE 06/01/2011 CATALINO PEREZ DO 438.9 UNSPECIFIED LATE EFFECTS OF CEREBROVASCULAR DISEASE 06/01/2011 TIN OCASIO MD 438.9 UNSPECIFIED LATE EFFECTS OF CEREBROVASCULAR DISEASE 06/01/2011 EVERARDO ECHOCARDIOGRAPH TECHNICIANJOSE BlackA L 438.9 UNSPECIFIED LATE EFFECTS OF CEREBROVASCULAR DISEASE 06/01/2011 MADL ECHOCARDIOGRAPH TECHNICIANJOSE BlackA L 438.9 UNSPECIFIED LATE EFFECTS OF CEREBROVASCULAR DISEASE 06/01/2011 EVERARDO ECHOCARDIOGRAPH TECHNICIANJOSE BlackA L 438.9 UNSPECIFIED LATE EFFECTS OF CEREBROVASCULAR DISEASE 06/01/2011 EVERARDO ECHOCARDIOGRAPH TECHNICIAN, DELLA L 438.9 UNSPECIFIED LATE EFFECTS OF CEREBROVASCULAR DISEASE 06/01/2011 438.9 UNSPECIFIED LATE EFFECTS OF CEREBROVASCULAR DISEASE 06/01/2011 JOSE MCGEE APRNA L 438.9 UNSPECIFIED LATE EFFECTS OF CEREBROVASCULAR DISEASE 06/01/2011 PEREZ DO, CATALINO K 438.9 UNSPECIFIED LATE EFFECTS OF CEREBROVASCULAR DISEASE 06/01/2011 PEREZ DO, CATALINO K 438.9 UNSPECIFIED LATE EFFECTS OF CEREBROVASCULAR DISEASE 07/04/2011 TIN OCASIO MD 564.00 UNSPECIFIED CONSTIPATION 07/04/2011 TIN OCASIO MD 788.20 Retention Of Urine Unspecified 07/04/2011 PEREZ DO, CATALINO K 564.00 UNSPECIFIED CONSTIPATION 07/04/2011 PEREZ DO CATALINO K 788.20 Retention Of Urine Unspecified 07/04/2011 DANIEL CRISTINA MD 564.00 UNSPECIFIED CONSTIPATION 07/04/2011 DANIEL CRISTINA MD 788.20 Retention Of Urine Unspecified 07/04/2011 564.00 UNSPECIFIED CONSTIPATION 07/04/2011 788.20 Retention Of Urine Unspecified 07/04/2011 564.00 UNSPECIFIED CONSTIPATION 07/04/2011 788.20 Retention Of Urine Unspecified 07/04/2011 564.00 UNSPECIFIED CONSTIPATION 07/04/2011 788.20 Retention Of Urine Unspecified 07/04/2011 564.00 UNSPECIFIED CONSTIPATION 07/04/2011 788.20 Retention Of Urine Unspecified 07/04/2011 564.00 UNSPECIFIED CONSTIPATION 07/04/2011 788.20 Retention Of Urine Unspecified 07/04/2011 DANIEL CRISTINA MD 564.00 UNSPECIFIED CONSTIPATION 07/04/2011 DANIEL CRISTINA MD 788.20 Retention Of Urine Unspecified 07/04/2011 DANIEL CRISTINA MD 564.00 UNSPECIFIED CONSTIPATION 07/04/2011 DANIEL CRISTINA MD 788.20 Retention Of Urine Unspecified 07/04/2011 PEREZ DO, CATALINO K 564.00 UNSPECIFIED CONSTIPATION 07/04/2011 PEREZ DO CATALINO K 788.20 Retention Of Urine Unspecified 07/04/2011 TIN OCASIO MD 564.00 UNSPECIFIED CONSTIPATION 07/04/2011 TIN OCASIO MD 788.20 Retention Of Urine Unspecified 07/04/2011 MADL ECHOCARDIOGRAPH TECHNICIAN, DELLA L 564.00 UNSPECIFIED CONSTIPATION 07/04/2011 MADL ECHOCARDIOGRAPH TECHNICIAN, DELLA L 788.20 Retention Of Urine Unspecified 07/04/2011 MADL ECHOCARDIOGRAPH TECHNICIAN, DELLA L 564.00 UNSPECIFIED CONSTIPATION 07/04/2011 MADL ECHOCARDIOGRAPH TECHNICIAN, DELLA L 788.20 Retention Of Urine Unspecified 07/04/2011 MADL ECHOCARDIOGRAPH TECHNICIAN, DELLA L 564.00 UNSPECIFIED CONSTIPATION 07/04/2011 MADL ECHOCARDIOGRAPH TECHNICIAN, DELLA L 788.20 Retention Of Urine Unspecified 07/04/2011 MADL ECHOCARDIOGRAPH TECHNICIAN, DELLA L 564.00 UNSPECIFIED CONSTIPATION 07/04/2011 MADL ECHOCARDIOGRAPH TECHNICIAN, DELLA L 788.20 Retention Of Urine Unspecified 07/04/2011 564.00 UNSPECIFIED CONSTIPATION 07/04/2011 788.20 Retention Of Urine Unspecified 07/04/2011 MADL ECHOCARDIOGRAPH TECHNICIAN, DELLA L 564.00 UNSPECIFIED CONSTIPATION 07/04/2011 MADL ECHOCARDIOGRAPH TECHNICIAN, DELLA L 788.20 Retention Of Urine Unspecified 07/04/2011 PEREZ DO, CATALINO K 564.00 UNSPECIFIED CONSTIPATION 07/04/2011 PEREZ DO, CATALINO K 788.20 Retention Of Urine Unspecified 07/04/2011 PEREZ DO, CATALINO K 564.00 UNSPECIFIED CONSTIPATION 07/04/2011 PEREZ DO, CATALINO K 788.20 Retention Of Urine Unspecified 11/16/2011 TIN OCASIO MD 788.41 Urinary Frequency 11/16/2011 PEREZ DO, CATALINO K 788.41 Urinary Frequency 11/16/2011 DANIEL CRISTINA MD 788.41 Urinary Frequency 11/16/2011 788.41 Urinary Frequency 11/16/2011 788.41 Urinary Frequency 11/16/2011 788.41 Urinary Frequency 11/16/2011 788.41 Urinary Frequency 11/16/2011 788.41 Urinary Frequency 11/16/2011 DANIEL CRISTINA MD 788.41 Urinary Frequency 11/16/2011 DANIEL CRISTINA MD 788.41 Urinary Frequency 11/16/2011 PEREZ DO, CATALINO K 788.41 Urinary Frequency 11/16/2011 TIN OCASIO MD 788.41 Urinary Frequency 11/16/2011 MADL ECHOCARDIOGRAPH TECHNICIAN, DELLA L 788.41 Urinary Frequency 11/16/2011 MADL ECHOCARDIOGRAPH TECHNICIAN, DELLA L 788.41 Urinary Frequency 11/16/2011 DELLA MCGEE APRN L 788.41 Urinary Frequency 11/16/2011 DELLA MCGEE APRN L 788.41 Urinary Frequency 11/16/2011 788.41 Urinary Frequency 11/16/2011 DELLA MCGEE APRN L 788.41 Urinary Frequency 11/16/2011 PEREZ DO CATALINO K 788.41 Urinary Frequency 11/16/2011 PEREZ DO CATALINO K 788.41 Urinary Frequency 06/26/2012 TIN OCASIO MD 401.1 ESSENTIAL HYPERTENSION BENIGN 06/26/2012 TIN OCASIO MD 729.5 pain in the right foot 06/26/2012 TIN OCASIO MD 787.20 difficulty swallowing (dysphagia) 06/26/2012 PEREZ WAYNE PATINOA K 401.1 ESSENTIAL HYPERTENSION BENIGN 06/26/2012 CHRIS PATINO CATALINO K 729.5 pain in the right foot 06/26/2012 CHRIS PATINO CATALINO K 787.20 difficulty swallowing (dysphagia) 06/26/2012 DANIEL CRISTINA MD 401.1 ESSENTIAL HYPERTENSION BENIGN 06/26/2012 DANIEL CRISTINA MD 729.5 pain in the right foot 06/26/2012 DANIEL CRISTINA MD 787.20 difficulty swallowing (dysphagia) 06/26/2012 401.1 ESSENTIAL HYPERTENSION BENIGN 06/26/2012 729.5 pain in the right foot 06/26/2012 787.20 difficulty swallowing (dysphagia) 06/26/2012 401.1 ESSENTIAL HYPERTENSION BENIGN 06/26/2012 729.5 pain in the right foot 06/26/2012 787.20 difficulty swallowing (dysphagia) 06/26/2012 401.1 ESSENTIAL HYPERTENSION BENIGN 06/26/2012 729.5 pain in the right foot 06/26/2012 787.20 difficulty swallowing (dysphagia) 06/26/2012 401.1 ESSENTIAL HYPERTENSION BENIGN 06/26/2012 729.5 pain in the right foot 06/26/2012 787.20 difficulty swallowing (dysphagia) 06/26/2012 401.1 ESSENTIAL HYPERTENSION BENIGN 06/26/2012 729.5 pain in the right foot 06/26/2012 787.20 difficulty swallowing (dysphagia) 06/26/2012 DANIEL CRISTINA MD 401.1 ESSENTIAL HYPERTENSION BENIGN 06/26/2012 DANIEL CRISTINA MD 729.5 pain in the right foot 06/26/2012 DANIEL CRISTINA MD 787.20 difficulty swallowing (dysphagia) 06/26/2012 DANIEL CRISTINA MD 401.1 ESSENTIAL HYPERTENSION BENIGN 06/26/2012 DANIEL CRISTINA MD 729.5 pain in the right foot 06/26/2012 DANIEL CRISTINA MD 787.20 difficulty swallowing (dysphagia) 06/26/2012 PEREZ DO, CATALINO K 401.1 ESSENTIAL HYPERTENSION BENIGN 06/26/2012 PEREZ DO, CATALINO K 729.5 pain in the right foot 06/26/2012 PEREZ DO, CATALINO K 787.20 difficulty swallowing (dysphagia) 06/26/2012 TIN OCASIO MD 401.1 ESSENTIAL HYPERTENSION BENIGN 06/26/2012 TIN OCASIO MD 729.5 pain in the right foot 06/26/2012 TIN OCASIO MD 787.20 difficulty swallowing (dysphagia) 06/26/2012 MADL ECHOCARDIOGRAPH TECHNICIAN, DELLA L 401.1 ESSENTIAL HYPERTENSION BENIGN 06/26/2012 MADL ECHOCARDIOGRAPH TECHNICIAN, DELLA L 729.5 pain in the right foot 06/26/2012 MADL ECHOCARDIOGRAPH TECHNICIAN, DELLA L 787.20 difficulty swallowing (dysphagia) 06/26/2012 MADL ECHOCARDIOGRAPH TECHNICIAN, DELLA L 401.1 ESSENTIAL HYPERTENSION BENIGN 06/26/2012 MADL ECHOCARDIOGRAPH TECHNICIAN, DELLA L 729.5 pain in the right foot 06/26/2012 MADL ECHOCARDIOGRAPH TECHNICIAN, DELLA L 787.20 difficulty swallowing (dysphagia) 06/26/2012 MADL ECHOCARDIOGRAPH TECHNICIAN, DELLA L 401.1 ESSENTIAL HYPERTENSION BENIGN 06/26/2012 MADL ECHOCARDIOGRAPH TECHNICIAN, DELLA L 729.5 pain in the right foot 06/26/2012 MADL ECHOCARDIOGRAPH TECHNICIAN, DELLA L 787.20 difficulty swallowing (dysphagia) 06/26/2012 MADL ECHOCARDIOGRAPH TECHNICIAN, DELLA L 401.1 ESSENTIAL HYPERTENSION BENIGN 06/26/2012 MADL ECHOCARDIOGRAPH TECHNICIAN, DELLA L 729.5 pain in the right foot 06/26/2012 MADL ECHOCARDIOGRAPH TECHNICIAN, DELLA L 787.20 difficulty swallowing (dysphagia) 06/26/2012 401.1 ESSENTIAL HYPERTENSION BENIGN 06/26/2012 729.5 pain in the right foot 06/26/2012 787.20 difficulty swallowing (dysphagia) 06/26/2012 MADL ECHOCARDIOGRAPH TECHNICIAN, DELLA L 401.1 ESSENTIAL HYPERTENSION BENIGN 06/26/2012 MADL ECHOCARDIOGRAPH TECHNICIAN, DELLA L 729.5 pain in the right foot 06/26/2012 MADL ECHOCARDIOGRAPH TECHNICIAN, DELLA L 787.20 difficulty swallowing (dysphagia) 06/26/2012 PEREZ DO, CATALINO K 401.1 ESSENTIAL HYPERTENSION BENIGN 06/26/2012 PEREZ DO, CATALINO K 729.5 pain in the right foot 06/26/2012 PEREZ DO, CATALINO K 787.20 difficulty swallowing (dysphagia) 06/26/2012 PEREZ DO, CATALINO K 401.1 ESSENTIAL HYPERTENSION BENIGN 06/26/2012 PEREZ DO, CATALINO K 729.5 pain in the right foot 06/26/2012 PEREZ DO, CATALINO K 787.20 difficulty swallowing (dysphagia) 09/02/2012 CATALINO PEREZ DO K 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 09/02/2012 DANIEL CRISTINA MD 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 09/02/2012 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 09/02/2012 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 09/02/2012 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 09/02/2012 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 09/02/2012 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 09/02/2012 DANIEL CRISTINA MD 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 09/02/2012 DANEIL CRISTINA MD 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 09/02/2012 CATALINO PEREZ DO K 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 09/02/2012 TIN OCASIO MD 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 09/02/2012 MADTaye ECHOCARDIOGRAPH TECHNICIAN, DELLA L 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 09/02/2012 MADTaye ECHOCARDIOGRAPH TECHNICIAN, DELLA L 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 09/02/2012 MADTaye ECHOCARDIOGRAPH TECHNICIAN, DELLA L 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 09/02/2012 MADTaye ECHOCARDIOGRAPH TECHNICIAN, DELLA L 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 09/02/2012 MADL ECHOCARDIOGRAPH TECHNICIAN, DELLA L 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 09/02/2012 PEREZ DO, CATALINO K 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 09/02/2012 PEREZ DO, CATALINO K 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 10/16/2012 DANIEL CRISTINA MD M 272.4 HYPERLIPIDEMIA 10/16/2012 DANIEL CRISTINA MD 288.60 LEUKOCYTOSIS 10/16/2012 DANIEL CRISTINA MD 401.0 ESSENTIAL HYPERTENSION MALIGNANT 10/16/2012 272.4 HYPERLIPIDEMIA 10/16/2012 288.60 LEUKOCYTOSIS 10/16/2012 401.0 ESSENTIAL HYPERTENSION MALIGNANT 10/16/2012 272.4 HYPERLIPIDEMIA 10/16/2012 288.60 LEUKOCYTOSIS 10/16/2012 401.0 ESSENTIAL HYPERTENSION MALIGNANT 10/16/2012 272.4 HYPERLIPIDEMIA 10/16/2012 288.60 LEUKOCYTOSIS 10/16/2012 401.0 ESSENTIAL HYPERTENSION MALIGNANT 10/16/2012 272.4 HYPERLIPIDEMIA 10/16/2012 288.60 LEUKOCYTOSIS 10/16/2012 401.0 ESSENTIAL HYPERTENSION MALIGNANT 10/16/2012 272.4 HYPERLIPIDEMIA 10/16/2012 288.60 LEUKOCYTOSIS 10/16/2012 401.0 ESSENTIAL HYPERTENSION MALIGNANT 10/16/2012 DANIEL CRISTINA MD M 272.4 HYPERLIPIDEMIA 10/16/2012 DANIEL CRISTINA MD 288.60 LEUKOCYTOSIS 10/16/2012 DANIEL CRISTINA MD 401.0 ESSENTIAL HYPERTENSION MALIGNANT 10/16/2012 DANIEL CRISTINA MD 272.4 HYPERLIPIDEMIA 10/16/2012 DANIEL CRISTINA MD 288.60 LEUKOCYTOSIS 10/16/2012 DANIEL CRISTINA MD 401.0 ESSENTIAL HYPERTENSION MALIGNANT 10/16/2012 PEREZ DO, CATALINO K 272.4 HYPERLIPIDEMIA 10/16/2012 PEREZ DO, CATALINO K 288.60 LEUKOCYTOSIS 10/16/2012 PEREZ DO, CATALINO K 401.0 ESSENTIAL HYPERTENSION MALIGNANT 10/16/2012 TIN OCASIO MD 272.4 HYPERLIPIDEMIA 10/16/2012 TIN OCASIO MD 288.60 LEUKOCYTOSIS 10/16/2012 TIN OCASIO MD 401.0 ESSENTIAL HYPERTENSION MALIGNANT 10/16/2012 MADL ECHOCARDIOGRAPH TECHNICIAN, DELLA L 272.4 HYPERLIPIDEMIA 10/16/2012 MADL ECHOCARDIOGRAPH TECHNICIAN, DELLA L 288.60 LEUKOCYTOSIS 10/16/2012 MADL ECHOCARDIOGRAPH TECHNICIAN, DELLA L 401.0 ESSENTIAL HYPERTENSION MALIGNANT 10/16/2012 MADL ECHOCARDIOGRAPH TECHNICIAN, DELLA L 272.4 HYPERLIPIDEMIA 10/16/2012 MADL ECHOCARDIOGRAPH TECHNICIAN, DELLA L 288.60 LEUKOCYTOSIS 10/16/2012 MADL ECHOCARDIOGRAPH TECHNICIAN, EDLLA L 401.0 ESSENTIAL HYPERTENSION MALIGNANT 10/16/2012 MADL ECHOCARDIOGRAPH TECHNICIAN, DELLA L 272.4 HYPERLIPIDEMIA 10/16/2012 MADL ECHOCARDIOGRAPH TECHNICIAN, DELLA L 288.60 LEUKOCYTOSIS 10/16/2012 MADL ECHOCARDIOGRAPH TECHNICIAN, DELLA L 401.0 ESSENTIAL HYPERTENSION MALIGNANT 10/16/2012 MADL ECHOCARDIOGRAPH TECHNICIAN, DELLA L 272.4 HYPERLIPIDEMIA 10/16/2012 MADL ECHOCARDIOGRAPH TECHNICIAN, DELLA L 288.60 LEUKOCYTOSIS 10/16/2012 MADL ECHOCARDIOGRAPH TECHNICIAN, DELLA L 401.0 ESSENTIAL HYPERTENSION MALIGNANT 10/16/2012 MADL ECHOCARDIOGRAPH TECHNICIAN, DELLA L 272.4 HYPERLIPIDEMIA 10/16/2012 MADL ECHOCARDIOGRAPH TECHNICIAN, DELLA L 288.60 LEUKOCYTOSIS 10/16/2012 MADL ECHOCARDIOGRAPH TECHNICIAN, DELLA L 401.0 ESSENTIAL HYPERTENSION MALIGNANT 10/16/2012 PEREZ DO, CATALINO K 272.4 HYPERLIPIDEMIA 10/16/2012 PEREZ DO, CATALINO K 288.60 LEUKOCYTOSIS 10/16/2012 PEREZ DO, CATALINO K 401.0 ESSENTIAL HYPERTENSION MALIGNANT 10/16/2012 PEREZ DO, CATALINO K 272.4 HYPERLIPIDEMIA 10/16/2012 PEREZ DO, CATALINO K 288.60 LEUKOCYTOSIS 10/16/2012 PEREZ DO, CATALINO K 401.0 ESSENTIAL HYPERTENSION MALIGNANT 12/06/2012 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 ) 12/06/2012 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 ) 12/06/2012 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 ) 12/06/2012 DANIEL CRISTINA MD 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) 12/06/2012 DANIEL CRISTINA MD 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) 12/06/2012 PEREZ DO, CATALINO K 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) 12/06/2012 TIN OCASIO MD 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) 12/06/2012 MADL ECHOCARDIOGRAPH TECHNICIAN, DELLA L 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) 12/06/2012 MADL ECHOCARDIOGRAPH TECHNICIAN, DELLA L 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) 12/06/2012 MADL ECHOCARDIOGRAPH TECHNICIAN, DELLA L 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) 12/06/2012 MADL ECHOCARDIOGRAPH TECHNICIAN, DELLA L 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) 12/06/2012 MADL ECHOCARDIOGRAPH TECHNICIAN, DELLA L 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) 12/06/2012 PEREZ DO, CATALINO K 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) 12/06/2012 PEREZ DO, CATALINO K 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) 01/23/2013 373.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 EXTERNUM 01/23/2013 DANIEL CRISTINA MD 373.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 EXTERNUM 01/23/2013 DANIEL CRISTINA MD 373.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 EXTERNUM 01/23/2013 WAYNE PEREZ DOA K 373.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 EXTERNUM 01/23/2013 TNI OCASIO MD 373.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 EXTERNUM 01/23/2013 [facility] ECHOCARDIOGRAPH TECHNICIAN, DELLA L 373.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 EXTERNUM 01/23/2013 [facility] ECHOCARDIOGRAPH TECHNICIAN, DELLA L 373.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 EXTERNUM 01/23/2013 MADL ECHOCARDIOGRAPH TECHNICIAN, DELLA L 373.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 EXTERNUM 01/23/2013 [facility] ECHOCARDIOGRAPH TECHNICIAN, DELLA L 373.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 EXTERNUM 01/23/2013 [facility] ECHOCARDIOGRAPH TECHNICIAN, DELLA L 373.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 EXTERNUM 01/23/2013 PEREZ DO, CATALINO K 373.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 EXTERNUM 01/23/2013 PEREZ DO CATALINO K 373.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 EXTERNUM 03/11/2013 VIRY BAEZ Ot 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, 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 05/07/2013 DANIEL CRISTINA MD V03.82 PPV23 (PNEUMOVAX) DX 05/07/2013 DANIEL CRISTINA MD V03.82 PPV23 (PNEUMOVAX) DX 05/07/2013 CATALINO PEREZ DO V03.82 PPV23 (PNEUMOVAX) DX 05/07/2013 TIN OCASIO MD V03.82 PPV23 (PNEUMOVAX) DX 05/07/2013 MADL ECHOCARDIOGRAPH TECHNICIAN, DELLA L V03.82 PPV23 (PNEUMOVAX) DX 05/07/2013 MADL ECHOCARDIOGRAPH TECHNICIAN, DELLA L V03.82 PPV23 (PNEUMOVAX) DX 05/07/2013 MADL ECHOCARDIOGRAPH TECHNICIAN, DELLA L V03.82 PPV23 (PNEUMOVAX) DX 05/07/2013 MADL ECHOCARDIOGRAPH TECHNICIAN, DELLA L V03.82 PPV23 (PNEUMOVAX) DX 05/07/2013 MADL ECHOCARDIOGRAPH TECHNICIAN, DELLA L V03.82 PPV23 (PNEUMOVAX) DX 05/07/2013 PEREZ DO, CATALINO K V03.82 PPV23 (PNEUMOVAX) DX 05/07/2013 PEREZ DO, CATALINO K V03.82 PPV23 (PNEUMOVAX) DX 08/27/2013 MAVIS DO, JAMIE K Ot 682.7 08/27/2013 MAVIS DO, JAMIE K Ot 892.1 08/27/2013 MAVIS DO, JAMIE K Ot E000.8 08/27/2013 MAVIS DO, JAMIE K Ot E920.8 08/27/2013 MAVIS DO, JAMIE K Ot V06.1 08/28/2013 DANIEL CRISTINA MD 682.7 CELLULITIS AND ABSCESS OF FOOT EXCEPT TOES 08/28/2013 DANIEL CRISTINA MD 892.1 OPEN WOUND OF FOOT EXCEPT TOE(S) ALONE COMPLICATED 08/28/2013 PEREZ DOWAYNEA K 682.7 CELLULITIS AND ABSCESS OF FOOT EXCEPT TOES 08/28/2013 PEREZ DO, CATALINO K 892.1 OPEN WOUND OF FOOT EXCEPT TOE(S) ALONE COMPLICATED 08/28/2013 TIN OCASIO MD 682.7 CELLULITIS AND ABSCESS OF FOOT EXCEPT TOES 08/28/2013 TIN OCASIO MD 892.1 OPEN WOUND OF FOOT EXCEPT TOE(S) ALONE COMPLICATED 08/28/2013 DELLA MCGEE APRN 682.7 CELLULITIS AND ABSCESS OF FOOT EXCEPT TOES 08/28/2013 DELLA MCGEE APRN 892.1 OPEN WOUND OF FOOT EXCEPT TOE(S) ALONE COMPLICATED 08/28/2013 DELLA MCGEE APRN 682.7 CELLULITIS AND ABSCESS OF FOOT EXCEPT TOES 08/28/2013 MADL ECHOCARDIOGRAPH TECHNICIAN, DELLA L 892.1 OPEN WOUND OF FOOT EXCEPT TOE(S) ALONE COMPLICATED 08/28/2013 MADL ECHOCARDIOGRAPH TECHNICIAN, DELLA L 682.7 CELLULITIS AND ABSCESS OF FOOT EXCEPT TOES 08/28/2013 MADL ECHOCARDIOGRAPH TECHNICIAN, DELLA L 892.1 OPEN WOUND OF FOOT EXCEPT TOE(S) ALONE COMPLICATED 08/28/2013 MADL ECHOCARDIOGRAPH TECHNICIAN, DELLA L 682.7 CELLULITIS AND ABSCESS OF FOOT EXCEPT TOES 08/28/2013 MADL ECHOCARDIOGRAPH TECHNICIAN, DELLA L 892.1 OPEN WOUND OF FOOT EXCEPT TOE(S) ALONE COMPLICATED 08/28/2013 MADL ECHOCARDIOGRAPH TECHNICIAN, DELLA L 682.7 CELLULITIS AND ABSCESS OF FOOT EXCEPT TOES 08/28/2013 MADL ECHOCARDIOGRAPH TECHNICIAN, DELLA L 892.1 OPEN WOUND OF FOOT EXCEPT TOE(S) ALONE COMPLICATED 08/28/2013 PEREZ DO, CATALINO K 682.7 CELLULITIS AND ABSCESS OF FOOT EXCEPT TOES 08/28/2013 PEREZ DO, CATALINO K 892.1 OPEN WOUND OF FOOT EXCEPT TOE(S) ALONE COMPLICATED 08/28/2013 PEREZ DO, CATALINO K 682.7 CELLULITIS AND ABSCESS OF FOOT EXCEPT TOES 08/28/2013 PEREZ DO, CATALINO K 892.1 OPEN WOUND OF FOOT EXCEPT TOE(S) ALONE COMPLICATED 10/01/2013 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 ECHOCARDIOGRAPH TECHNICIAN Ot 338.19 OTHER ACUTE PAIN 10/01/2013 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 ECHOCARDIOGRAPH TECHNICIAN Ot 724.2 LUMBAGO 02/15/2014 Ot 250.00 DIAB ALONDRA WO COMPL, TYPE II OR UNSPEC TY 02/15/2014 Ot 401.9 HYPERTENSION NOS 02/15/2014 Ot 530.81 ESOPHAGEAL REFLUX 02/15/2014 Ot 586 RENAL FAILURE NOS 02/15/2014 Ot 716.90 ARTHROPATHY NOS-UNSPEC 02/15/2014 Ot 719.41 JOINT PAIN- SHLDER 02/15/2014 Ot 840.9 SPRAIN SHOULDER/ARM NOS 02/15/2014 Ot 842.10 SPRAIN OF HAND NOS 02/15/2014 Ot E928.9 ACCIDENT NOS 02/15/2014 Ot V12.54 PERSONAL HX OF TIA, CEREBRAL INFARCTION 02/15/2014 Ot V58.63 LONG-TERM( CURRENT)USE OF ANTIPLATELET/AN 02/15/2014 Ot V58.66 LONG-TERM ( 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 ASPIRIN 02/15/2014 Ot V58.69 OTH MED,LT, CURRENT USE 04/08/2014 DELLA MCGEE APRN L V05.8 ZOSTAVAX DX 04/08/2014 DELLA MCGEE APRN L V05.8 ZOSTAVAX DX 04/08/2014 DELLA MCGEE APRN L V05.8 ZOSTAVAX DX 04/08/2014 PEREZ DOWAYNEA K V05.8 ZOSTAVAX DX 04/08/2014 PEREZ DO, CATALINO K V05.8 ZOSTAVAX DX 07/07/2014 VIRY BAEZ Ot 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, 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 07/07/2014 VIRY BAEZ Ot 250.00 DIAB ALONDRA WO COMPL, TYPE II OR UNSPEC TY 07/07/2014 VIRY BAEZ Ot V58.67 LONG-TERM (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 07/07/2014 VIRY BAEZ Ot V58.69 OTH MED,LT,CURRENT USE 08/05/2014 MAUDE NG SOLAR INSTALLATION HELPER Ot V76.12 08/05/2014 MAUDE NG SOLAR INSTALLATION HELPER Ot 204.10 08/05/2014 MAUDE NG SOLAR INSTALLATION HELPER Ot 250.00 08/05/2014 MAUDE NG SOLAR INSTALLATION HELPER Ot V58.67 08/05/2014 MAUDE NG SOLAR INSTALLATION HELPER Ot V58.69 08/12/2014 MAUDE NG SOLAR INSTALLATION HELPER Ot 793.80 09/05/2014 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 APRN Ot 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 SYNOVIAL CYST 09/05/2014 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 APRN Ot 924.11 CONTUSION OF KNEE 09/05/2014 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 APRN Ot 959.7 LOWER LEG INJURY NOS 09/05/2014 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 APRN Ot E000.8 OTHER EXTERNAL CAUSE STATUS 09/05/2014 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 APRN Ot E849.0 ACCIDENT IN HOME 09/05/2014 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 APRN Ot E888.9 FALL NOS 10/30/2014 Ot 272.4 11/02/2014 Ot 272.4 11/05/2014 Ot 204.10 11/05/2014 Ot 250.00 11/05/2014 Ot V58.67 11/05/2014 Ot V58.69 03/11/2015 SASHA, BOBAN N Ot 204.10 03/11/2015 SAHSA, BOBAN N Ot 250.00 03/11/2015 SASHA, BOBAN N Ot V58.67 03/11/2015 SASHA, BOBAN N Ot V58.69 03/11/2015 SASHA, BOBAN N Ot 204.10 03/11/2015 SASHA, BOBAN N Ot 250.00 03/11/2015 SASHA, BOBAN N Ot V58.67 03/11/2015 SASHA, BOBAN N Ot V58.69 03/18/2015 SASHA, BOBAN N Ot 204.10 03/18/2015 SASHA, BOBAN N Ot 250.00 03/18/2015 SASHA, BOBAN N Ot V58.67 03/18/2015 SASHA, BOBAN N Ot V58.69 03/19/2015 SASHA, BOBAN N Ot 204.10 03/19/2015 SASHA, BOBAN N Ot 250.00 03/19/2015 SASHA, BOBAN N Ot V58.67 03/19/2015 SASHA, BOBAN N Ot V58.69 03/24/2015 SASHA, BOBAN N Ot 204.10 03/24/2015 SASHA, BOBAN N Ot 250.00 03/24/2015 SASHA, BOBAN N Ot V58.67 03/24/2015 SASHA, BOBAN N Ot V58.69 04/27/2015 SASHA, BOBAN N Ot 204.10 04/27/2015 SASHA, BOBAN N Ot 250.00 04/27/2015 ASSHA, BOBAN N Ot V58.67 04/27/2015 SASHA, BOBAN N Ot V58.69 05/05/2015 SASHA, BOBAN N Ot 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, 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 05/05/2015 SASHA, BOBAN N Ot 250.00 DIAB ALONDRA WO COMPL, TYPE II OR UNSPEC TY 05/05/2015 SASHA, BOBAN N Ot V58.67 LONG-TERM (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 05/05/2015 SASHA BOBAN N Ot V58.69 OTH MED,LT,CURRENT USE 07/07/2015 DELLA MCGEE SOLAR INSTALLATION HELPER Ot R22.31 09/30/2015 RAFI NGLEXIE Vernon SOLAR INSTALLATION HELPER Ot C91.10 09/30/2015 MAUDE NG SOLAR INSTALLATION HELPER Ot E11.9 09/30/2015 MAUDE NG Janeen SOLAR INSTALLATION HELPER Ot I10 09/30/2015 MAUDE NG Janeen SOLAR INSTALLATION HELPER Ot Z79.4 09/30/2015 MAUDE NG Janeen SOLAR INSTALLATION HELPER Ot Z79.899 10/21/2015 MARY SAHU, CHITO Rawls Ot Z01.818 ENCOUNTER FOR OTHER PREPROCEDURAL EXAMIN 10/25/2015 MARY SAHU, CHITO Rawls Ot E11.9 TYPE 2 DIABETES MELLITUS WITHOUT COMPLIC 10/25/2015 MARY SAHU, CHITO Rawls Ot K57.90 DVRTCLOS OF INTEST, PART UNSP, W/O PERF 10/25/2015 MARY SAHU, CHITO Rawls Ot K62.1 RECTAL POLYP 10/25/2015 MARY SAHU, CHITO Rawls Ot Z12.11 ENCOUNTER FOR SCREENING FOR MALIGNANT NE 10/26/2015 MARY SAHU, CHITO Rawls Ot E11.9 10/26/2015 CHITO HERNANDEZ MD Ot K57.90 10/26/2015 CHITO HERNANDEZ MD Ot K62.1 10/26/2015 MARY SAHU, CHITO Rawls Ot Z12.11 12/23/2015 RAFI NGLEXIE Janeen SOLAR INSTALLATION HELPER Ot 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 LYMPHOCYTIC LEUK OF B-CELL TYPE 12/23/2015 MAUDE NG SOLAR INSTALLATION HELPER Ot E11.9 TYPE 2 DIABETES MELLITUS WITHOUT COMPLIC 12/23/2015 MAUDE NG SOLAR INSTALLATION HELPER Ot I10 ESSENTIAL (PRIMARY) HYPERTENSION 12/23/2015 MAUDE NG SOLAR INSTALLATION HELPER Ot Z79.4 HYDROSTATIC TESTER (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 12/23/2015 MAUDE NG SOLAR INSTALLATION HELPER Ot Z79.899 OTHER HYDROSTATIC TESTER (CURRENT) DRUG THERAPY 01/03/2016 JORGE LUIS TYLER MD Ot E11.9 TYPE 2 DIABETES MELLITUS WITHOUT COMPLIC 01/03/2016 JORGE LUIS TYLER MD Ot S60.222A CONTUSION OF LEFT HAND, INITIAL ENCOUNTE 01/03/2016 JORGE LUIS TYLER MD Ot W22.8XXA STRIKING AGAINST OR STRUCK BY OTHER OBJE 01/03/2016 JORGE LUIS TYLER MD Ot Y92.[address] IN [facility] NON-INSTIT[facility] (PRIVATE 01/03/2016 JORGE LUIS TYLER MD Ot Y99.8 OTHER EXTERNAL CAUSE STATUS 01/03/2016 JORGE LUIS TYLER MD Ot Z79.4 [facility] (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 01/06/2016 JORGE LUIS TYLER MD Ot E11.9 TYPE 2 DIABETES MELLITUS WITHOUT COMPLIC 01/06/2016 JORGE LUIS TYLER MD Ot S60.222A CONTUSION OF LEFT HAND, INITIAL ENCOUNTE 01/06/2016 JORGE LUIS TYLER MD Ot W22.8XXA STRIKING AGAINST OR STRUCK BY OTHER OBJE 01/06/2016 JORGE LUIS TYLER MD Ot Y92.[address] IN [facility] NON-INSTIT[facility] (PRIVATE 01/06/2016 JORGE LUIS TYLER MD Ot Y99.8 OTHER EXTERNAL CAUSE STATUS 01/06/2016 JORGE LUIS TYLER MD, Ot Z79.4 HYDROSTATIC TESTER (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 01/21/2016 MAUDE NG Ot 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 LYMPHOCYTIC LEUK OF B-CELL TYPE 01/21/2016 MAUDE NGP Ot E11.9 TYPE 2 DIABETES MELLITUS WITHOUT COMPLIC 01/21/2016 MAUDE NG Ot I10 ESSENTIAL (PRIMARY) HYPERTENSION 01/21/2016 MAUDE NG Ot Z79.4 [facility] (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 01/21/2016 MAUDE NG Ot Z79.899 OTHER [facility] (CURRENT) DRUG THERAPY 03/16/2016 VIRY BAEZ Ot 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 LYMPHOCYTIC LEUK OF B-CELL TYPE 03/16/2016 VIRY BAEZ Ot E11.9 TYPE 2 DIABETES MELLITUS WITHOUT COMPLIC 03/16/2016 VIRY BAEZ Ot I10 ESSENTIAL (PRIMARY) HYPERTENSION 03/16/2016 VIRY BAEZ Ot Z79.4 HYDROSTATIC TESTER (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 03/16/2016 VIRY BAEZ Ot Z79.899 OTHER HYDROSTATIC TESTER (CURRENT) DRUG THERAPY 04/04/2016 Ot 788.20 RETENTION OF URINE NOS 04/04/2016 Ot 787.20 DYSPHAGIA, UNSPECIFIED 04/04/2016 VIRY BAEZ Ot 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, 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 04/04/2016 NGMAUDE Vernon S SOLAR INSTALLATION HELPER Ot 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, 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 04/04/2016 NGMAUDE Vernon S SOLAR INSTALLATION HELPER Ot 250.00 DIAB ALONDRA WO COMPL, TYPE II OR UNSPEC TY 04/04/2016 NG, HILAH S SOLAR INSTALLATION HELPER Ot 438.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,HEMIPLEGIA AFFECTING 04/04/2016 NGMAUDE Vernon S SOLAR INSTALLATION HELPER Ot 780.79 OTH MALAISE FATIGUE 04/04/2016 NGRAFIAH S SOLAR INSTALLATION HELPER Ot V58.67 LONG-TERM (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 04/04/2016 NGRAFIAH S SOLAR INSTALLATION HELPER Ot V58.69 OTH MED,LT,CURRENT USE 04/04/2016 MAUDE NG S SOLAR INSTALLATION HELPER Ot 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, 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 04/04/2016 NGMAUDE Vernon S SOLAR INSTALLATION HELPER Ot V58.69 OTH MED,LT,CURRENT USE 04/04/2016 VIRY BAEZ Ot 729.5 PAIN IN LIMB 04/04/2016 NGMAUDE Vernon S SOLAR INSTALLATION HELPER Ot 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, 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 04/04/2016 NGMAUDE Vernon S SOLAR INSTALLATION HELPER Ot 250.00 DIAB ALONDRA WO COMPL, TYPE II OR UNSPEC TY 04/04/2016 NGMAUDE S SOLAR INSTALLATION HELPER Ot V58.67 LONG-TERM (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 04/04/2016 MAUDE NG S SOLAR INSTALLATION HELPER Ot V58.69 OTH MED,LT,CURRENT USE 04/04/2016 MAUDE NG S SOLAR INSTALLATION HELPER Ot V76.12 OTH SCREEN MAMMO-MALIGN NEOPLASM OF SILVINA 04/04/2016 NGRAFIAH S SOLAR INSTALLATION HELPER Ot 793.80 UNSPEC ABNORMAL MAMMOGRAM 04/04/2016 Ot 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, 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 04/04/2016 Ot 250.00 DIAB ALONDRA WO COMPL, TYPE II OR UNSPEC TY 04/04/2016 Ot V58.67 LONG-TERM ( 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 04/04/2016 Ot V58.69 OTH MED,LT, CURRENT USE 04/04/2016 Ot 272.4 HYPERLIPIDEMIA NEC/NOS 04/04/2016 DELLA MCGEE SOLAR INSTALLATION HELPER Ot R22.31 LOCALIZED SWELLING, MASS AND LUMP, RIGHT 04/04/2016 MAUDE NG SOLAR INSTALLATION HELPER Ot 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 LYMPHOCYTIC LEUK OF B-CELL TYPE 04/04/2016 MAUDE NG SOLAR INSTALLATION HELPER Ot E11.9 TYPE 2 DIABETES MELLITUS WITHOUT COMPLIC 04/04/2016 MAUED NG SOLAR INSTALLATION HELPER Ot I10 ESSENTIAL (PRIMARY) HYPERTENSION 04/04/2016 NGMAUDE Vernon SOLAR INSTALLATION HELPER Ot Z79.4 HYDROSTATIC TESTER (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 04/04/2016 MAUDE NG SOLAR INSTALLATION HELPER Ot Z79.899 OTHER [facility] (CURRENT) DRUG THERAPY 04/04/2016 MAUDE NG SOLAR INSTALLATION HELPER Ot 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 LYMPHOCYTIC LEUK OF B-CELL TYPE 04/04/2016 MAUDE NG SOLAR INSTALLATION HELPER Ot E11.9 TYPE 2 DIABETES MELLITUS WITHOUT COMPLIC 04/04/2016 MAUDE NG SOLAR INSTALLATION HELPER Ot I10 ESSENTIAL (PRIMARY) HYPERTENSION 04/04/2016 NG MAUDE Vernon SOLAR INSTALLATION HELPER Ot Z79.4 HYDROSTATIC TESTER (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 04/04/2016 MAUDE NGP Ot Z79.899 OTHER [facility] (CURRENT) DRUG THERAPY 04/04/2016 SASHAVIRY N Ot 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 LYMPHOCYTIC LEUK OF B-CELL TYPE 04/04/2016 SASHADUSTY ROWLANDWILEY N Ot E11.9 TYPE 2 DIABETES MELLITUS WITHOUT COMPLIC 04/04/2016 SASHAVIRY N Ot I10 ESSENTIAL (PRIMARY) HYPERTENSION 04/04/2016 SASHAVIRY ROWLAND N Ot Z79.4 [facility] (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 04/04/2016 VIRY BAEZ N Ot Z79.899 OTHER HYDROSTATIC TESTER (CURRENT) DRUG THERAPY 04/06/2016 VIRY BAEZ N Ot 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 LYMPHOCYTIC LEUK OF B-CELL TYPE 04/06/2016 VIRY BAEZ N Ot E11.9 TYPE 2 DIABETES MELLITUS WITHOUT COMPLIC 04/06/2016 SASHAVIRY ROWLAND N Ot I10 ESSENTIAL (PRIMARY) HYPERTENSION 04/06/2016 SASHAVIRY ROWLAND N Ot Z79.4 HYDROSTATIC TESTER (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 04/06/2016 VIRY BAEZ N Ot Z79.899 OTHER [facility] (CURRENT) DRUG THERAPY 06/22/2016 MAUDE NG SOLAR INSTALLATION HELPER Ot R92.8 OTH ABN AND INCONCLUSIVE FINDINGS ON DX 07/12/2016 MAUDE NG SOLAR INSTALLATION HELPER Ot R92.8 OTH ABN AND INCONCLUSIVE FINDINGS ON DX 08/29/2016 VIRY BAEZ Ot 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 LYMPHOCYTIC LEUK OF B-CELL TYPE 08/29/2016 VIRY BAEZ N Ot E11.9 TYPE 2 DIABETES MELLITUS WITHOUT COMPLIC 08/29/2016 VIRY BAEZ N Ot I10 ESSENTIAL (PRIMARY) HYPERTENSION 08/29/2016 VIRY BAEZ N Ot Z79.4 HYDROSTATIC TESTER (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 08/29/2016 VIRY BAEZ N Ot Z79.899 OTHER HYDROSTATIC TESTER (CURRENT) DRUG THERAPY 10/17/2016 VIRY BAEZ Ot 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 LYMPHOCYTIC LEUK OF B-CELL TYPE 10/17/2016 VIRY BAEZ N Ot E11.9 TYPE 2 DIABETES MELLITUS WITHOUT COMPLIC 10/17/2016 VIRY BAEZ Sofia Ot I10 ESSENTIAL (PRIMARY) HYPERTENSION 10/17/2016 VIRY BAEZ N Ot Z79.4 [facility] (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 10/17/2016 VIRY BAEZ Sofia Ot Z79.899 OTHER [facility] (CURRENT) DRUG THERAPY 11/20/2016 ALMA SAHU, EDWIN Carvajal Ot E11.9 TYPE 2 DIABETES MELLITUS WITHOUT COMPLIC 11/20/2016 EDWIN MARQUEZ MD Ot I10 ESSENTIAL (PRIMARY) HYPERTENSION 11/20/2016 EDWIN MARQUEZ MD Ot J20.9 ACUTE BRONCHITIS, UNSPECIFIED 11/20/2016 EDWIN MARQUEZ MD Ot J30.9 ALLERGIC RHINITIS, UNSPECIFIED 11/20/2016 EDWIN MARQUEZ MD Ot R05 COUGH 11/20/2016 EDWIN MARQUEZ MD Ot R07.89 OTHER CHEST PAIN 11/20/2016 EDWIN MARQUEZ MD Ot Z79.02 [facility] (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 ANTITHROMBOTI 11/20/2016 EDWIN MARQUEZ MD Ot Z79.4 HYDROSTATIC TESTER (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 11/20/2016 EDWIN MARQUEZ MD Ot Z79.899 OTHER HYDROSTATIC TESTER (CURRENT) DRUG THERAPY 11/21/2016 EDWIN MARQUEZ MD Ot E11.9 TYPE 2 DIABETES MELLITUS WITHOUT COMPLIC 11/21/2016 EDWIN MARQUEZ MD Ot I10 ESSENTIAL (PRIMARY) HYPERTENSION 11/21/2016 EDWIN MARQUEZ MD Ot J20.9 ACUTE BRONCHITIS, UNSPECIFIED 11/21/2016 EDWIN MARQUEZ MD Ot J30.9 ALLERGIC RHINITIS, UNSPECIFIED 11/21/2016 EDWIN MARQUEZ MD Ot R05 COUGH 11/21/2016 EDWIN MARQUEZ MD T Ot R07.89 OTHER CHEST PAIN 11/21/2016 EDWIN MARQUEZ MD Ot Z79.02 [facility] (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 ANTITHROMBOTI 11/21/2016 EDWIN MARQUEZ MD Ot Z79.4 HYDROSTATIC TESTER (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 11/21/2016 EDWIN MARQUEZ MD T Ot Z79.899 OTHER HYDROSTATIC TESTER (CURRENT) DRUG THERAPY 11/22/2016 EDWIN MARQUEZ MD Ot E11.9 TYPE 2 DIABETES MELLITUS WITHOUT COMPLIC 11/22/2016 EDWIN MARQUEZ MD Ot I10 ESSENTIAL (PRIMARY) HYPERTENSION 11/22/2016 EDWIN MARQUEZ MD Ot J20.9 ACUTE BRONCHITIS, UNSPECIFIED 11/22/2016 EDWIN MARQUEZ MD Ot J30.9 ALLERGIC RHINITIS, UNSPECIFIED 11/22/2016 EDWIN MARQUEZ MD T Ot R05 COUGH 11/22/2016 EDWIN MARQUEZ MD Ot R07.89 OTHER CHEST PAIN 11/22/2016 EDWIN MARQUEZ MD Ot Z79.02 HYDROSTATIC TESTER (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 ANTITHROMBOTI 11/22/2016 EDWIN MARQUEZ MD T Ot Z79.4 [facility] (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 11/22/2016 EDWIN MARQUEZ MD Ot Z79.899 OTHER [facility] (CURRENT) DRUG THERAPY 12/22/2016 VIRY BAEZ Ot 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 LYMPHOCYTIC LEUK OF B-CELL TYPE 12/22/2016 VIRY BAEZ Ot E11.9 TYPE 2 DIABETES MELLITUS WITHOUT COMPLIC 12/22/2016 VIRY BAEZ Sofia Ot I10 ESSENTIAL (PRIMARY) HYPERTENSION 12/22/2016 VIRY BAEZ Sofia Ot Z79.4 [facility] (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 12/22/2016 VIRY BAEZ Sofia Ot Z79.899 OTHER [facility] (CURRENT) DRUG THERAPY 12/24/2016 MAUDE NG SOLAR INSTALLATION HELPER Ot 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 LYMPHOCYTIC LEUK OF B-CELL TYPE 12/24/2016 MAUDE NG SOLAR INSTALLATION HELPER Ot E11.9 TYPE 2 DIABETES MELLITUS WITHOUT COMPLIC 12/24/2016 MAUDE NG SOLAR INSTALLATION HELPER Ot I10 ESSENTIAL (PRIMARY) HYPERTENSION 12/24/2016 MAUDE NG SOLAR INSTALLATION HELPER Ot Z79.4 [facility] (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 12/24/2016 MAUDE NG SOLAR INSTALLATION HELPER Ot Z79.899 OTHER HYDROSTATIC TESTER (CURRENT) DRUG THERAPY 12/24/2016 MAUDE NG SOLAR INSTALLATION HELPER Ot 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 LYMPHOCYTIC LEUK OF B-CELL TYPE 12/24/2016 MAUDE NG SOLAR INSTALLATION HELPER Ot E11.9 TYPE 2 DIABETES MELLITUS WITHOUT COMPLIC 12/24/2016 MAUDE NG SOLAR INSTALLATION HELPER Ot I10 ESSENTIAL (PRIMARY) HYPERTENSION 12/24/2016 MAUDE NG SOLAR INSTALLATION HELPER Ot Z79.4 HYDROSTATIC TESTER (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 12/24/2016 MAUDE NG SOLAR INSTALLATION HELPER Ot Z79.899 OTHER HYDROSTATIC TESTER (CURRENT) DRUG THERAPY 12/24/2016 MAUDE NG SOLAR INSTALLATION HELPER Ot 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 LYMPHOCYTIC LEUK OF B-CELL TYPE 12/24/2016 MAUDE NG SOLAR INSTALLATION HELPER Ot E11.9 TYPE 2 DIABETES MELLITUS WITHOUT COMPLIC 12/24/2016 MAUDE NG SOLAR INSTALLATION HELPER Ot I10 ESSENTIAL (PRIMARY) HYPERTENSION 12/24/2016 MAUDE NG SOLAR INSTALLATION HELPER Ot Z79.4 HYDROSTATIC TESTER (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 12/24/2016 MAUDE NG SOLAR INSTALLATION HELPER Ot Z79.899 OTHER [facility] (CURRENT) DRUG THERAPY 12/24/2016 SASHA VIRY Black Ot 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 LYMPHOCYTIC LEUK OF B-CELL TYPE 12/24/2016 SASHA, VIRY Black Ot E11.9 TYPE 2 DIABETES MELLITUS WITHOUT COMPLIC 12/24/2016 SASHAVIRY Ot I10 ESSENTIAL (PRIMARY) HYPERTENSION 12/24/2016 SASHAVIRY Ot Z79.4 HYDROSTATIC TESTER (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 12/24/2016 SASHA VIRY Black Ot Z79.899 OTHER HYDROSTATIC TESTER (CURRENT) DRUG THERAPY 12/24/2016 SASHA VIRY Black Ot 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 LYMPHOCYTIC LEUK OF B-CELL TYPE 12/24/2016 SASHAVIRY Ot E11.9 TYPE 2 DIABETES MELLITUS WITHOUT COMPLIC 12/24/2016 SASHAVIRY Ot I10 ESSENTIAL (PRIMARY) HYPERTENSION 12/24/2016 SASHAVIRY Ot Z79.4 HYDROSTATIC TESTER (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 12/24/2016 SASHAVIRY ROWLAND Ot Z79.899 OTHER [facility] (CURRENT) DRUG THERAPY 01/11/2017 EDWIN MARQUEZ MD Ot E11.9 TYPE 2 DIABETES MELLITUS WITHOUT COMPLIC 01/11/2017 EDWIN MARQUEZ MD Ot I10 ESSENTIAL (PRIMARY) HYPERTENSION 01/11/2017 ALMA SAHU, EDWIN T Ot J20.9 ACUTE BRONCHITIS, UNSPECIFIED 01/11/2017 EDWIN MARQUEZ MD T Ot J30.9 ALLERGIC RHINITIS, UNSPECIFIED 01/11/2017 EDWIN MARQUEZ MD T Ot R05 COUGH 01/11/2017 EDWIN MARQUEZ MD T Ot R07.89 OTHER CHEST PAIN 01/11/2017 EDWIN MARQUEZ MD T Ot Z79.02 [facility] (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 ANTITHROMBOTI 01/11/2017 EDWIN MARQUEZ MD T Ot Z79.4 [facility] (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 01/11/2017 EDWIN MARQUEZ MD T Ot Z79.899 OTHER [facility] (CURRENT) DRUG THERAPY 01/25/2017 VIRY BAEZ Ot 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 LYMPHOCYTIC LEUK OF B-CELL TYPE 01/25/2017 VIRY BAEZ N Ot E11.9 TYPE 2 DIABETES MELLITUS WITHOUT COMPLIC 01/25/2017 SASHAVIRY ROWLAND N Ot I10 ESSENTIAL (PRIMARY) HYPERTENSION 01/25/2017 VIRY BAEZ Ot Z79.4 [facility] (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 01/25/2017 VIRY BAEZ N Ot Z79.899 OTHER [facility] (CURRENT) DRUG THERAPY 03/01/2017 ANTONINO WALLER ECHOCARDIOGRAPH TECHNICIAN Ot N64.52 NIPPLE DISCHARGE 03/06/2017 ANTONINO WALLER ECHOCARDIOGRAPH TECHNICIAN Ot N64.52 NIPPLE DISCHARGE 03/20/2017 VIRY BAEZ Sofia Ot 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 LYMPHOCYTIC LEUK OF B-CELL TYPE 03/20/2017 VIRY BAEZ N Ot E11.9 TYPE 2 DIABETES MELLITUS WITHOUT COMPLIC 03/20/2017 VIRY BAEZ N Ot I10 ESSENTIAL (PRIMARY) HYPERTENSION 03/20/2017 VIRY BAEZ N Ot Z79.4 [facility] (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 03/20/2017 VIRY BAEZ N Ot Z79.899 OTHER [facility] (CURRENT) DRUG THERAPY 03/30/2017 CHRISTIN ANTONINO Florian ECHOCARDIOGRAPH TECHNICIAN Ot N64.52 NIPPLE DISCHARGE 07/31/2017 VIRY BAEZ N Ot 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 LYMPHOCYTIC LEUK OF B-CELL TYPE 07/31/2017 VIRY BAEZ N Ot E11.9 TYPE 2 DIABETES MELLITUS WITHOUT COMPLIC 07/31/2017 VIRY BAEZ N Ot I10 ESSENTIAL (PRIMARY) HYPERTENSION 07/31/2017 VIRY BAEZ N Ot Z79.4 HYDROSTATIC TESTER (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 07/31/2017 VIRY BAEZ N Ot Z79.899 OTHER [facility] (CURRENT) DRUG THERAPY Procedures Code Description [place] [address] ROUTINE VENIPUNCTURE 06/26/2012 64782 XRAY FOOT RIGHT COMP MIN 3 VIEWS 06/26/2012 24478 A1C (IN-HOUSE) 06/26/2012 48099 MICRO ALBUMIN-IN HOUSE 06/26/2012 74815 UA W/ CULTURE IF INDICATED 06/26/2012 47413 BMP 06/26/2012 [id number] GFR CALC (RESULT ONLY) 06/26/2012 56019 LIPID PANEL 07/03/2012 22912 VITAMIN D 25-HYDROXY (D2,D3 , TOTAL) 07/04/2012 77784 TSH 07/04/2012 28964 ROUTINE VENIPUNCTURE 07/04/2012 17487 BARIUM SWALLOW XRAY MODIFIED 07/04/2012 Physical Speech Therapy, [facility] 08/22/2012 22300 ROUTINE VENIPUNCTURE 10/16/2012 67128 MICRO ALBUMIN-IN HOUSE 10/16/2012 34256 A1C (IN-HOUSE) 10/16/2012 14675 CMP 10/16/2012 [id number] GFR CALC (RESULT ONLY) 10/16/2012 72963 CBC 10/16/2012 56314 ROUTINE VENIPUNCTURE 11/13/2012 54272 CBC 11/13/2012 96242 PERIPHERIAL BLOOD SMEAR 11/19/2012 [id number] HEMATOLOGY OTHER REPORT 11/20/2012 74933 ROUTINE VENIPUNCTURE 11/28/2012 Viry Bryant 11/28/2012 14866 PERIPHERAL BLOOD FLOW CYTOMETRY 12/02/2012 71303 ROUTINE VENIPUNCTURE 01/23/2013 47445 A1C (IN-HOUSE) 01/23/2013 08996 MICRO ALBUMIN-IN HOUSE 01/23/2013 24944 BMP 01/23/2013 56265 MAGNESIUM 01/23/2013 3791836 GFR CALC (RESULT ONLY) 01/23/2013 09005 A1C (IN-HOUSE) 05/07/2013 43116 ROUTINE VENIPUNCTURE 09/11/2013 58178 HEMOGLOBIN (IN-HOUSE) 09/11/2013 81634 A1C (IN-HOUSE) 09/11/2013 50252 CMP 09/11/2013 63426 LIPID PANEL 09/11/2013 47789 MAGNESIUM 09/11/2013 9108917 GFR CALC (RESULT ONLY) 09/11/2013 92889 MICROALBUMIN 09/11/2013 34102 ROUTINE VENIPUNCTURE 11/24/2013 57330 BMP 11/24/2013 40512 A1C (IN-HOUSE) 01/07/2014 24494 A1C (IN-HOUSE) 04/08/2014 98539 A1C (IN-HOUSE) 07/08/2014 64151 US BREAST ULTRASOUND, RIGHT 07/22/2014 97470 MAMMOGRAM DX, RIGHT 07/22/2014 Results Test Result Range Complete urinalysis with reflex to culture - 08/09/17 10:52 Urine color determination YELLOW NRG Urine clarity determination CLEAR NRG Urine pH measurement by test strip 5 5-9 Specific gravity of urine by test strip 1.020 1.016- 1.022 Urine protein assay by test strip, semi-quantitative NEGATIVE NEGATIVE Urine glucose detection by automated test strip NEGATIVE NEGATIVE Erythrocytes detection in urine sediment by light microscopy 4+ NEGATIVE Urine ketones detection by automated test strip NEGATIVE NEGATIVE Urine nitrite detection by test strip NEGATIVE NEGATIVE Urine total bilirubin detection by test strip NEGATIVE NEGATIVE Urine urobilinogen measurement by automated test strip (mass/volume) NORMAL NORMAL Urine leukocyte esterase detection by dipstick 1+ NEGATIVE Automated urine sediment erythrocyte count by microscopy (number/high power field) [HPF] NRG Automated urine sediment leukocyte count by microscopy (number/high power field ) [HPF] NRG Bacteria detection in urine sediment by light microscopy TRACE NRG Squamous epithelial cells detection in urine sediment by light microscopy 5-10 NRG Crystals detection in urine sediment by light microscopy NONE NRG Casts detection in urine sediment by light microscopy NONE NRG Mucus detection in urine sediment by light microscopy SMALL NRG Complete urinalysis with reflex to culture NO NRG Complete blood count (CBC) with automated white blood cell (WBC) differential - 08/09/17 11:47 Blood leukocytes automated count (number/volume) 16.5 10*3/uL 4.3-11.0 Blood erythrocytes automated count (number/volume) 4.53 10*6/uL 4.35-5.85 Venous blood hemoglobin measurement (mass/volume) 13.4 g/dL 11.5-16.0 Blood hematocrit (volume fraction) 36 % 35-52 Automated erythrocyte mean corpuscular volume 79 [foz_us] 80-99 Automated erythrocyte mean corpuscular hemoglobin (mass per erythrocyte) 30 pg 25-34 Automated erythrocyte mean corpuscular hemoglobin concentration measurement ( mass/volume) 37 g/dL 32-36 Automated erythrocyte distribution width ratio 14.2 % 10.0-14.5 Automated blood platelet count (count/volume) 163 10*3/uL 130-400 Automated blood platelet mean volume measurement 11.3 [foz_us] 7.4-10.4 Automated blood neutrophils/100 leukocytes 21 % 42-75 Automated blood lymphocytes/100 leukocytes 74 % 12-44 Blood monocytes/100 leukocytes 3 % 0-12 Automated blood eosinophils/100 leukocytes 1 % 0-10 Automated blood basophils/100 leukocytes 0 % 0-10 Blood neutrophils automated count (number/volume) 3.5 10*3 1.8-7.8 Blood lymphocytes automated count (number/volume) 12.3 10*3 1.0-4.0 Blood monocytes automated count (number/volume) 0.5 10*3 0.0-1.0 Automated eosinophil count 0.2 10*3/uL 0.0-0.3 Automated blood basophil count (count/volume) 0.1 10*3/uL 0.0-0.1 Whole blood basic metabolic panel - 08/09/17 11:47 Serum or plasma sodium measurement (moles/volume) 142 mmol/L 135-145 Serum or plasma potassium measurement (moles/volume) 4.3 mmol/L 3.6-5.0 Serum or plasma chloride measurement (moles/volume) 106 mmol/L 98-107 Carbon dioxide 25 mmol/L 21-32 Serum or plasma anion gap determination (moles/volume) 11 mmol/L 5-14 Serum or plasma urea nitrogen measurement (mass/volume) 16 mg/dL 7-18 Serum or plasma creatinine measurement (mass/volume) 0.83 mg/dL 0.60-1.30 Serum or plasma urea nitrogen/creatinine mass ratio 19 NRG Serum or plasma creatinine measurement with calculation of estimated glomerular filtration rate > NRG Serum or plasma glucose measurement (mass/volume) 144 mg/dL 70-105 Serum or plasma calcium measurement (mass/volume) 9.9 mg/dL 8.5-10.1 Blood manual differential performed detection - 08/09/17 11:47 Blood monocytes/100 leukocytes 3 % NRG Manual blood segmented neutrophils/100 leukocytes 18 % NRG Manual blood lymphocytes/100 leukocytes 78 % NRG Blood lymphocytes variant/100 leukocytes 1 % NRG Blood anisocytosis detection by light microscopy SLIGHT NRG Blood microcytes detection by light microscopy SLIGHT NRG Encounters ACCT No. Visit Date/Time Discharge Status Pt. Type Provider Facility Loc./Unit Complaint [id number] 10/14/2014 10:54:00 10/14/2014 23:59:59 CLS Outpatient CATLAINO PEREZ DO [id number] 07/08/2014 13:33:00 07/08/2014 23:59:59 CLS Outpatient CATALINO PEREZ DO [id number] 07/08/2014 13:33:00 07/08/2014 23:59:59 CLS Outpatient MADL ECHOCARDIOGRAPH TECHNICIANDELLA Black [id number] 04/08/2014 13:02:00 04/08/2014 23:59:59 CLS Outpatient MADL DELLA FRY [id number] 04/08/2014 13:02:00 04/08/2014 23:59:59 CLS Outpatient MADL DELLA FRY [id number] 01/07/2014 14:50:00 01/07/2014 23:59:59 CLS Outpatient MADL DELLA RFY Taye [id number] 01/07/2014 14:50:00 01/07/2014 23:59:59 CLS Outpatient RUBINAL DELLA FRY [id number] 12/23/2013 14:44:00 12/23/2013 23:59:59 CLS Outpatient TIN OCASIO MD [id number] 11/24/2013 09:00:00 11/24/2013 23:59:59 CLS Outpatient CATALINO PEREZ DO [id number] 09/11/2013 09:49:00 09/11/2013 23:59:59 CLS Outpatient DANIEL CRISTINA MD [id number] 05/07/2013 16:19:00 05/07/2013 23:59:59 CLS Outpatient DANIEL CRISTINA MD [id number] 10/16/2012 09:04:00 10/16/2012 23:59:59 CLS Outpatient DANIEL CRISTINA MD [id number] 09/02/2012 18:28:00 09/02/2012 23:59:59 CLS Outpatient CATALINO PEREZ DO [id number] 07/03/2012 08:01:00 07/03/2012 23:59:59 [place] [id number] 07/03/2012 08:01:00 07/03/2012 23:59:59 CLS Outpatient [id number] 01/23/2013 10:45:00 Document Registration [id number] 12/25/2012 15:29:00 Document Registration [id number] 11/28/2012 13:45:00 Document Registration [id number] 11/19/2012 14:35:00 Document Registration [id number] 11/13/2012 09:51:00 Document Registration [id number] 07/04/2017 08:43:00 07/04/2017 23:59:59 CLS Outpatient VIRY BAEZ [facility] ONC [id number] 12/20/2016 09:31:00 03/20/2017 00:01:00 DIS Outpatient VIRY BAEZ [facility] ONC [id number] 03/01/2017 08:42:00 03/01/2017 23:59:59 CLS Outpatient ANTONINO WALLER ECHOCARDIOGRAPH TECHNICIAN [facility] RAD N64.52 BLOODY DISCHARGE FROM R NIPPLE [id number] 11/20/2016 16:08:00 11/20/2016 17:58:00 DIS Outpatient EDWIN MARQUEZ MD [facility] ER COUGH/BACK PAIN [id number] 07/19/2016 09:09:00 10/17/2016 00:01:00 DIS Outpatient VIRY BAEZ [facility] ONC [id number] 06/21/2016 13:05:00 06/21/2016 23:59:59 CLS Outpatient MAUDE NG [employer]ALLATION HELPER [facility] RAD ABNORMAL MAMMO [id number] 03/15/2016 08:55:00 03/15/2016 23:59:59 CLS Outpatient VRIY BAEZ [facility] ONC [id number] 01/03/2016 13:34:00 01/03/2016 14:45:00 DIS Emergency JORGE LUIS TYLER MD [facility] ER LEFT HAND INJURY [id number] 12/22/2015 13:21:00 12/22/2015 23:59:59 CLS Outpatient MAUDE NGP [facility] ONC [id number] 10/25/2015 09:32:00 10/25/2015 12:15:00 DIS Outpatient CHITO HERNANDEZ MD [facility] SDC SCREENING [id number] 10/21/2015 06:12:00 10/21/2015 12:31:00 DIS Outpatient CHITO HERNANDEZ MD [facility] PREOP SCREENING [id number] 09/16/2015 09:27:00 09/16/2015 23:59:59 CLS Outpatient MAUDE NGP [facility] ONC [id number] 06/14/2015 13:45:00 06/14/2015 23:59:59 CLS Outpatient DELLA MCGEEP [facility] RAD RT AXILLARY KNOT [id number] 03/18/2015 12:42:00 05/05/2015 00:01:00 DIS Outpatient VIRY BAEZ [facility] ONC [id number] 09/05/2014 10:01:00 09/05/2014 12:42:00 DIS Emergency 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 ECHOCARDIOGRAPH TECHNICIAN [facility] ER LEG SWELLING [id number] 07/22/2014 13:16:00 07/22/2014 23:59:59 CLS Outpatient MAUDE NG [employer] INSTALLATION HELPER [facility] RAD ABNORMAL MAMMO [id number] 07/15/2014 10:28:00 07/15/2014 23:59:59 CLS Outpatient MAUDE NG [employer] INSTALLATION HELPER [facility] RAD SCREENING [id number] 07/08/2014 09:25:00 07/08/2014 23:59:59 CLS Outpatient MAUDE NG [employer]ALLATION HELPER [facility] ONC [id number] 04/08/2014 09:04:00 07/07/2014 00:01:00 DIS Outpatient VIRY BAEZ Sofia [facility] ONC [id number] 04/08/2014 10:11:00 04/08/2014 23:59:59 CLS Outpatient SASHAVIRY Sofia [facility] RAD LEFT L/E PAIN AND SWELLING [id number] 11/19/2013 10:00:00 11/19/2013 23:59:59 CLS Outpatient MAUDE NG S [employer]ALLATION HELPER [facility] ONC [id number] 10/01/2013 12:28:00 10/01/2013 14:10:00 DIS Emergency 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 ECHOCARDIOGRAPH TECHNICIAN [facility] ER BACK PAIN [id number] 06/19/2013 09:12:00 09/17/2013 00:01:00 DIS Outpatient [id number] 08/27/2013 12:11:00 08/27/2013 14:51:00 DIS Emergency JAMIE GAMBLE DO [facility] ER [id number] 08/19/2013 13:43:00 08/19/2013 23:59:59 CLS Outpatient [id number] 03/20/2013 12:45:00 03/20/2013 23:59:59 CLS Outpatient MAUDE NG [employer] INSTALLATION HELPER [facility] ONC [id number] 12/26/2012 13:21:00 03/11/2013 00:01:00 DIS Outpatient VIRY BAEZ [facility] ONC [id number] 12/18/2012 07:59:00 12/18/2012 23:59:59 CLS Outpatient VIRY BAEZ [facility] RAD CLL [id number] 08/09/2017 11:06:00 Document Registration [id number] 04/04/2016 10:34:00 Document Registration [id number] 04/04/2016 10:34:00 Document Registration [id number] 10/30/2014 14:04:00 Document Registration [id number] 10/14/2014 09:41:00 Document Registration [id number] 02/15/2014 19:45:00 Document Registration [id number] 07/09/2012 10:29:00 Document Registration [id number] 07/10/2011 12:49:00 Document Registration [id number] 05/26/2011 12:31:00 Document Registration [id number] 05/23/2011 23:45:00 Document Registration [id number] 10/06/2010 13:20:00 Document Registration
== END 2017-08-09 13:06 | disposition home or self-care (01) ==
LOC: EDUNIT# 10:06 → ER 10:08
DX: R31.9 Hematuria, unspecified (principal); R10.84 Generalized abdominal pain; I10 Essential (primary) hypertension; E78.00 Pure hypercholesterolemia, unspecified; K21.9 Gastro-esophageal reflux disease without esophagitis; E11.9 Type 2 diabetes mellitus without complications; Z85.6 Personal history of leukemia; Z86.73 Personal history of transient ischemic attack (TIA), and cerebral infarction without residual deficits; Z79.82 Long term (current) use of aspirin; Z79.4 Long term (current) use of insulin; Z98.51 Tubal ligation status
CPT/HCPCS: 36415; 74176; 80048; 81000; 85007; 85027; 96374; 96375; 99282

== ENCOUNTER 2017-08-23 20:52 | Emergency (ER) | payer MEDICARE ==
[~2017-08-23] VITALS: Ht 160 cm; Wt 89.4 kg
[~2017-08-23 20:52] MED LIST changes: +ONDA8TAB9 PO
--- OUTSIDE RECORDS SUMMARY | 2017-08-23 21:04 | XMS REPORT | Continuity of Care Document ---
Author Author [facility] Address Unknown Phone Unavailable Allergies Active [...] MD 585.9 CHRONIC RENAL FAILURE 10/17/2010 MADL DEAN OF WOMEN, DELLA L 250.02 DIABETES MELLITUS TYPE 2 - UNCOMPLICATED, UNCONTROLLED 10/17/2010 MADL DEAN OF WOMEN, DELLA L 585.9 CHRONIC RENAL FAILURE 10/17/2010 MADL DEAN OF WOMEN, DELLA L 250.02 DIABETES MELLITUS TYPE 2 - UNCOMPLICATED, UNCONTROLLED 10/17/2010 MADL DEAN OF WOMEN, DELLA L 585.9 CHRONIC RENAL FAILURE 10/17/2010 MADL DEAN OF WOMEN, DELLA L 250.02 DIABETES MELLITUS TYPE 2 - UNCOMPLICATED, UNCONTROLLED 10/17/2010 MADL DEAN OF WOMEN, DELLA L 585.9 CHRONIC RENAL FAILURE 10/17/2010 MADL DEAN OF WOMEN, DELLA L 250.02 DIABETES MELLITUS TYPE 2 - UNCOMPLICATED, UNCONTROLLED 10/17/2010 MADL DEAN OF WOMEN, DELLA L 585.9 CHRONIC RENAL FAILURE 10/17/2010 250.02 DIABETES MELLITUS TYPE 2 - UNCOMPLICATED, UNCONTROLLED 10/17/2010 585.9 CHRONIC RENAL FAILURE 10/17/2010 MADL DEAN OF WOMEN, DELLA L 250.02 DIABETES MELLITUS TYPE 2 - UNCOMPLICATED, UNCONTROLLED 10/17/2010 MADL DEAN OF WOMEN, DELLA L 585.9 CHRONIC RENAL FAILURE 10/17/2010 [...] MELLITUS TYPE 2 WITH COMPLICATION 11/02/2010 MADTaye DEAN OF WOMEN, DELLA L 250.90 DIABETES MELLITUS TYPE 2 WITH COMPLICATION 11/02/2010 EVERARDO DEAN OF WOMEN, DELLA L 250.90 DIABETES MELLITUS TYPE 2 WITH COMPLICATION 11/02/2010 MADL DEAN OF WOMEN, DELLA L 250.90 DIABETES MELLITUS TYPE 2 WITH COMPLICATION 11/02/2010 MADL DEAN OF WOMEN, DELLA L 250.90 DIABETES MELLITUS TYPE 2 WITH COMPLICATION 11/02/2010 250.90 DIABETES MELLITUS TYPE 2 WITH COMPLICATION 11/02/2010 EVERARDO DEAN OF WOMEN, DELLA L 250.90 DIABETES MELLITUS TYPE 2 [...] DO 268.9 UNSPECIFIED VITAMIN D DEFICIENCY 11/16/2010 CATAILNO PEREZ DO 782.3 EDEMA 11/16/2010 DANIEL CRISTINA [...] TIN OCASIO MD 782.3 EDEMA 11/16/2010 MADL DEAN OF WOMEN, DELLA L 250.42 DIABETES WITH RENAL MANIFESTATIONS TYPE II OR UNSPECIFIED TYPE UNCONTROLLED 11/16/2010 MADL DEAN OF WOMEN, DELLA L 268.9 UNSPECIFIED VITAMIN D DEFICIENCY 11/16/2010 MADL DEAN OF WOMEN, DELLA L 782.3 EDEMA 11/16/2010 MADL DEAN OF WOMEN, DELLA L 250.42 DIABETES WITH RENAL MANIFESTATIONS TYPE II OR UNSPECIFIED TYPE UNCONTROLLED 11/16/2010 MADL DEAN OF WOMEN, DELLA L 268.9 UNSPECIFIED VITAMIN D DEFICIENCY 11/16/2010 MADL DEAN OF WOMEN, DELLA L 782.3 EDEMA 11/16/2010 MADL DEAN OF WOMEN, DELLA L 250.42 DIABETES WITH RENAL MANIFESTATIONS TYPE II OR UNSPECIFIED TYPE UNCONTROLLED 11/16/2010 MADL DEAN OF WOMEN, DELLA L 268.9 UNSPECIFIED VITAMIN D DEFICIENCY 11/16/2010 MADL DEAN OF WOMEN, DELLA L 782.3 EDEMA 11/16/2010 MADL DEAN OF WOMEN, DELLA L 250.42 DIABETES WITH RENAL MANIFESTATIONS TYPE II OR UNSPECIFIED TYPE UNCONTROLLED 11/16/2010 MADL DEAN OF WOMEN, DELLA L 268.9 UNSPECIFIED VITAMIN D DEFICIENCY 11/16/2010 MADL DEAN OF WOMEN, DELLA L 782.3 EDEMA 11/16/2010 250.42 DIABETES WITH RENAL MANIFESTATIONS TYPE II OR UNSPECIFIED TYPE UNCONTROLLED 11/16/2010 268.9 UNSPECIFIED VITAMIN D DEFICIENCY 11/16/2010 782.3 EDEMA 11/16/2010 MADL DEAN OF WOMEN, DELLA L 250.42 DIABETES WITH RENAL MANIFESTATIONS TYPE II OR UNSPECIFIED TYPE UNCONTROLLED 11/16/2010 MADL DEAN OF WOMEN, DELLA L 268.9 UNSPECIFIED VITAMIN D DEFICIENCY 11/16/2010 MADL DEAN OF WOMEN, DELLA L 782.3 EDEMA 11/16/2010 PEREZ DO, [...] 368.8 OTHER SPECIFIED VISUAL DISTURBANCES 02/22/2011 MADL DEAN OF WOMEN, DELLA L 357.2 POLYNEUROPATHY IN DIABETES 02/22/2011 MADL DEAN OF WOMEN, DELLA L 368.8 OTHER SPECIFIED VISUAL DISTURBANCES 02/22/2011 MADL DEAN OF WOMEN, DELLA L 357.2 POLYNEUROPATHY IN DIABETES 02/22/2011 MADL DEAN OF WOMEN, DELLA L 368.8 OTHER SPECIFIED VISUAL DISTURBANCES 02/22/2011 MADL DEAN OF WOMEN, DELLA L 357.2 POLYNEUROPATHY IN DIABETES 02/22/2011 MADL DEAN OF WOMEN, DELLA L 368.8 OTHER SPECIFIED VISUAL DISTURBANCES 02/22/2011 MADL DEAN OF WOMEN, DELLA L 357.2 POLYNEUROPATHY IN DIABETES 02/22/2011 MADL DEAN OF WOMEN, DELLA L 368.8 OTHER SPECIFIED VISUAL DISTURBANCES 02/22/2011 357.2 POLYNEUROPATHY IN DIABETES 02/22/2011 368.8 OTHER SPECIFIED VISUAL DISTURBANCES 02/22/2011 MADL DEAN OF WOMEN, DELLA L 357.2 POLYNEUROPATHY IN DIABETES 02/22/2011 MADL DEAN OF WOMEN, DELLA L 368.8 OTHER SPECIFIED VISUAL DISTURBANCES [...] V57.3 CARE INVOLVING SPEECH-LANGUAGE THERAPY 06/01/2011 TIN OCASIO MD 438.9 UNSPECIFIED LATE EFFECTS OF CEREBROVASCULAR DISEASE 06/01/2011 CATALINO PEREZ DO 438.9 UNSPECIFIED LATE EFFECTS OF CEREBROVASCULAR DISEASE 06/01/2011 ADNIEL CRISTINA MD 438.9 UNSPECIFIED LATE EFFECTS OF [...] LATE EFFECTS OF CEREBROVASCULAR DISEASE 06/01/2011 EVERARDO DEAN OF WOMENJOSE BlackA L 438.9 UNSPECIFIED LATE EFFECTS OF CEREBROVASCULAR DISEASE 06/01/2011 MADL DEAN OF WOMENJOSE BlackA L 438.9 UNSPECIFIED LATE EFFECTS OF CEREBROVASCULAR DISEASE 06/01/2011 EVERARDO DEAN OF WOMENJOSE BlackA L 438.9 UNSPECIFIED LATE EFFECTS OF CEREBROVASCULAR DISEASE 06/01/2011 EVERARDO DEAN OF WOMEN, DELLA L 438.9 UNSPECIFIED LATE EFFECTS OF [...] 788.20 Retention Of Urine Unspecified 07/04/2011 MADL DEAN OF WOMEN, DELLA L 564.00 UNSPECIFIED CONSTIPATION 07/04/2011 MADL DEAN OF WOMEN, DELLA L 788.20 Retention Of Urine Unspecified 07/04/2011 MADL DEAN OF WOMEN, DELLA L 564.00 UNSPECIFIED CONSTIPATION 07/04/2011 MADL DEAN OF WOMEN, DELLA L 788.20 Retention Of Urine Unspecified 07/04/2011 MADL DEAN OF WOMEN, DELLA L 564.00 UNSPECIFIED CONSTIPATION 07/04/2011 MADL DEAN OF WOMEN, DELLA L 788.20 Retention Of Urine Unspecified 07/04/2011 MADL DEAN OF WOMEN, DELLA L 564.00 UNSPECIFIED CONSTIPATION 07/04/2011 MADL DEAN OF WOMEN, DELLA L 788.20 Retention Of Urine Unspecified 07/04/2011 564.00 UNSPECIFIED CONSTIPATION 07/04/2011 788.20 Retention Of Urine Unspecified 07/04/2011 MADL DEAN OF WOMEN, DELLA L 564.00 UNSPECIFIED CONSTIPATION 07/04/2011 MADL DEAN OF WOMEN, DELLA L 788.20 Retention Of Urine Unspecified [...] OCASIO MD 788.41 Urinary Frequency 11/16/2011 MADL DEAN OF WOMEN, DELLA L 788.41 Urinary Frequency 11/16/2011 MADL DEAN OF WOMEN, DELLA L 788.41 Urinary Frequency 11/16/2011 DELLA [...] MD 787.20 difficulty swallowing (dysphagia) 06/26/2012 MADL DEAN OF WOMEN, DELLA L 401.1 ESSENTIAL HYPERTENSION BENIGN 06/26/2012 MADL DEAN OF WOMEN, DELLA L 729.5 pain in the right foot 06/26/2012 MADL DEAN OF WOMEN, DELLA L 787.20 difficulty swallowing (dysphagia) 06/26/2012 MADL DEAN OF WOMEN, DELLA L 401.1 ESSENTIAL HYPERTENSION BENIGN 06/26/2012 MADL DEAN OF WOMEN, DELLA L 729.5 pain in the right foot 06/26/2012 MADL DEAN OF WOMEN, DELLA L 787.20 difficulty swallowing (dysphagia) 06/26/2012 MADL DEAN OF WOMEN, DELLA L 401.1 ESSENTIAL HYPERTENSION BENIGN 06/26/2012 MADL DEAN OF WOMEN, DELLA L 729.5 pain in the right foot 06/26/2012 MADL DEAN OF WOMEN, DELLA L 787.20 difficulty swallowing (dysphagia) 06/26/2012 MADL DEAN OF WOMEN, DELLA L 401.1 ESSENTIAL HYPERTENSION BENIGN 06/26/2012 MADL DEAN OF WOMEN, DELLA L 729.5 pain in the right foot 06/26/2012 MADL DEAN OF WOMEN, DELLA L 787.20 difficulty swallowing (dysphagia) 06/26/2012 401.1 ESSENTIAL HYPERTENSION BENIGN 06/26/2012 729.5 pain in the right foot 06/26/2012 787.20 difficulty swallowing (dysphagia) 06/26/2012 MADL DEAN OF WOMEN, DELLA L 401.1 ESSENTIAL HYPERTENSION BENIGN 06/26/2012 MADL DEAN OF WOMEN, DELLA L 729.5 pain in the right foot 06/26/2012 MADL DEAN OF WOMEN, DELLA L 787.20 difficulty swallowing (dysphagia) 06/26/2012 [...] MD 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 09/02/2012 DANIEL CRISTINA MD 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 09/02/2012 CATALINO PEREZ DO K 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 09/02/2012 TIN OCASIO MD 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 09/02/2012 MADTaye DEAN OF WOMEN, DELLA L 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 09/02/2012 MADTaye DEAN OF WOMEN, DELLA L 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 09/02/2012 MADTaye DEAN OF WOMEN, DELLA L 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 09/02/2012 MADTaye DEAN OF WOMEN, DELLA L 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 09/02/2012 MADL DEAN OF WOMEN, DELLA L 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 [...] MD 401.0 ESSENTIAL HYPERTENSION MALIGNANT 10/16/2012 MADL DEAN OF WOMEN, DELLA L 272.4 HYPERLIPIDEMIA 10/16/2012 MADL DEAN OF WOMEN, DELLA L 288.60 LEUKOCYTOSIS 10/16/2012 MADL DEAN OF WOMEN, DELLA L 401.0 ESSENTIAL HYPERTENSION MALIGNANT 10/16/2012 MADL DEAN OF WOMEN, DELLA L 272.4 HYPERLIPIDEMIA 10/16/2012 MADL DEAN OF WOMEN, DELLA L 288.60 LEUKOCYTOSIS 10/16/2012 MADL DEAN OF WOMEN, DELLA L 401.0 ESSENTIAL HYPERTENSION MALIGNANT 10/16/2012 MADL DEAN OF WOMEN, DELLA L 272.4 HYPERLIPIDEMIA 10/16/2012 MADL DEAN OF WOMEN, DELLA L 288.60 LEUKOCYTOSIS 10/16/2012 MADL DEAN OF WOMEN, DELLA L 401.0 ESSENTIAL HYPERTENSION MALIGNANT 10/16/2012 MADL DEAN OF WOMEN, DELLA L 272.4 HYPERLIPIDEMIA 10/16/2012 MADL DEAN OF WOMEN, DELLA L 288.60 LEUKOCYTOSIS 10/16/2012 MADL DEAN OF WOMEN, DELAL L 401.0 ESSENTIAL HYPERTENSION MALIGNANT 10/16/2012 MADL DEAN OF WOMEN, DELLA L 272.4 HYPERLIPIDEMIA 10/16/2012 MADL DEAN OF WOMEN, DELLA L 288.60 LEUKOCYTOSIS 10/16/2012 MADL DEAN OF WOMEN, DELLA L 401.0 ESSENTIAL HYPERTENSION MALIGNANT 10/16/2012 [...] OCASIO MD 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) 12/06/2012 MADL DEAN OF WOMEN, DELLA L 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) 12/06/2012 MADL DEAN OF WOMEN, DELLA L 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) 12/06/2012 MADL DEAN OF WOMEN, DELLA L 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) 12/06/2012 MADL DEAN OF WOMEN, DELLA L 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) 12/06/2012 MADL DEAN OF WOMEN, DELLA L 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) 12/06/2012 PEREZ DO, CATALINO K 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) 12/06/2012 PEREZ DO, CATALINO K 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) 01/23/2013 373.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 EXTERNUM 01/23/2013 DANIEL CRISTINA MD 373.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 EXTERNUM 01/23/2013 DANIEL CRISTINA MD 373.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 EXTERNUM 01/23/2013 WAYNE PEREZ DOA K 373.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 EXTERNUM 01/23/2013 TIN OCASIO MD 373.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 EXTERNUM 01/23/2013 [facility] DEAN OF WOMEN, DELLA L 373.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 EXTERNUM 01/23/2013 [facility] DE[facility], DELLA L 373.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 EXTERNUM 01/23/2013 MADL DEAN OF WOMEN, DELLA L 373.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 EXTERNUM 01/23/2013 [facility] DEAN OF WOMEN, DELLA L 373.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 EXTERNUM 01/23/2013 [facility] DEAN OF WOMEN, DELLA L 373.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 EXTERNUM 01/23/2013 PEREZ DO, CATALINO K 373.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 EXTERNUM 01/23/2013 PEREZ DO CATALINO K 373.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 EXTERNUM 03/11/2013 VIRY MORAN Ot 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, 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 05/07/2013 DANIEL CRISTINA MD V03.82 PPV23 (PNEUMOVAX) DX 05/07/2013 DANIEL CRISTINA MD V03.82 PPV23 (PNEUMOVAX) DX 05/07/2013 CATALINO PEREZ DO V03.82 PPV23 (PNEUMOVAX) DX 05/07/2013 TIN OCASIO MD V03.82 PPV23 (PNEUMOVAX) DX 05/07/2013 MADL DEAN OF WOMEN, DELLA L V03.82 PPV23 (PNEUMOVAX) DX 05/07/2013 MADL DEAN OF WOMEN, DELLA L V03.82 PPV23 (PNEUMOVAX) DX 05/07/2013 MADL DEAN OF WOMEN, DELLA L V03.82 PPV23 (PNEUMOVAX) DX 05/07/2013 MADL DEAN OF WOMEN, DELLA L V03.82 PPV23 (PNEUMOVAX) DX 05/07/2013 MADL DEAN OF WOMEN, DELLA L V03.82 PPV23 (PNEUMOVAX) DX 05/07/2013 [...] FOOT EXCEPT TOE(S) ALONE COMPLICATED 08/28/2013 TIN OACSIO MD 682.7 CELLULITIS AND ABSCESS OF FOOT EXCEPT TOES 08/28/2013 TIN OCASIO MD 892.1 OPEN WOUND OF FOOT EXCEPT TOE(S) ALONE COMPLICATED 08/28/2013 DELLA MCGEE APRN 682.7 CELLULITIS AND ABSCESS OF FOOT EXCEPT TOES 08/28/2013 DELLA MCGEE APRN 892.1 OPEN WOUND OF FOOT EXCEPT TOE(S) ALONE COMPLICATED 08/28/2013 DELLA MCGEE APRN 682.7 CELLULITIS AND ABSCESS OF FOOT EXCEPT TOES 08/28/2013 MADL DEAN OF WOMEN, DELLA L 892.1 OPEN WOUND OF FOOT EXCEPT TOE(S) ALONE COMPLICATED 08/28/2013 MADL DEAN OF WOMEN, DELLA L 682.7 CELLULITIS AND ABSCESS OF FOOT EXCEPT TOES 08/28/2013 MADL DEAN OF WOMEN, DELLA L 892.1 OPEN WOUND OF FOOT EXCEPT TOE(S) ALONE COMPLICATED 08/28/2013 MADL DEAN OF WOMEN, DELLA L 682.7 CELLULITIS AND ABSCESS OF FOOT EXCEPT TOES 08/28/2013 MADL DEAN OF WOMEN, DELLA L 892.1 OPEN WOUND OF FOOT EXCEPT TOE(S) ALONE COMPLICATED 08/28/2013 MADL DEAN OF WOMEN, DELLA L 682.7 CELLULITIS AND ABSCESS OF FOOT EXCEPT TOES 08/28/2013 MADL DEAN OF WOMEN, DELLA L 892.1 OPEN WOUND OF FOOT [...] EXCEPT TOE(S) ALONE COMPLICATED 10/01/2013 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 DEAN OF WOMEN Ot 338.19 OTHER ACUTE PAIN 10/01/2013 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 DEAN OF WOMEN Ot 724.2 LUMBAGO 02/15/2014 Ot 250.00 DIAB [...] CATALINO K V05.8 ZOSTAVAX DX 07/07/2014 VIRY MORAN Ot 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, 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 07/07/2014 VIRY MORAN Ot 250.00 DIAB ALONDRA WO COMPL, TYPE II OR UNSPEC TY 07/07/2014 VIRY MORAN Ot V58.67 LONG-TERM (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 07/07/2014 VIRY MORAN Ot V58.69 OTH MED,LT,CURRENT USE 08/05/2014 MAUDE NG INSPECTOR RAW QUARTZ Ot V76.12 08/05/2014 MAUDE NG INSPECTOR RAW QUARTZ Ot 204.10 08/05/2014 MAUDE NG INSPECTOR RAW QUARTZ Ot 250.00 08/05/2014 MAUDE NG INSPECTOR RAW QUARTZ Ot V58.67 08/05/2014 MAUDE NG INSPECTOR RAW QUARTZ Ot V58.69 08/12/2014 MAUDE NG INSPECTOR RAW QUARTZ Ot 793.80 09/05/2014 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 APRN Ot [...] 04/27/2015 SASHA, BOBAN N Ot 250.00 04/27/2015 SASHA, BOBAN N Ot V58.67 04/27/2015 SASHA, BOBAN N Ot V58.69 05/05/2015 SASHA, BOBAN N Ot 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, 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 05/05/2015 SASHA, BOBAN N Ot 250.00 DIAB ALONDRA WO COMPL, TYPE II OR UNSPEC TY 05/05/2015 SASHA, BOBAN N Ot V58.67 LONG-TERM (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 05/05/2015 SASHA BOBAN N Ot V58.69 OTH MED,LT,CURRENT USE 07/07/2015 DELLA MCGEE INSPECTOR RAW QUARTZ Ot R22.31 09/30/2015 RAFI NGLEXIE Vernon INSPECTOR RAW QUARTZ Ot C91.10 09/30/2015 MAUDE NG INSPECTOR RAW QUARTZ Ot E11.9 09/30/2015 MAUDE NG Janeen INSPECTOR RAW QUARTZ Ot I10 09/30/2015 MAUDE NG Janeen INSPECTOR RAW QUARTZ Ot Z79.4 09/30/2015 MAUDE NG Janeen INSPECTOR RAW QUARTZ Ot Z79.899 10/21/2015 MARY SAHU, CHITO Rawls [...] Rawls Ot Z12.11 12/23/2015 RAFI NGLEXIE Janeen INSPECTOR RAW QUARTZ Ot 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 LYMPHOCYTIC LEUK OF B-CELL TYPE 12/23/2015 MAUDE NG INSPECTOR RAW QUARTZ Ot E11.9 TYPE 2 DIABETES MELLITUS WITHOUT COMPLIC 12/23/2015 MAUDE NG INSPECTOR RAW QUARTZ Ot I10 ESSENTIAL (PRIMARY) HYPERTENSION 12/23/2015 MAUDE NG INSPECTOR RAW QUARTZ Ot Z79.4 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 12/23/2015 MAUDE NG INSPECTOR RAW QUARTZ Ot Z79.899 OTHER PROCUREMENT PROFESSIONAL LOGISTICS (CURRENT) DRUG THERAPY 01/03/2016 JORGE LUIS TYLER MD Ot E11.9 TYPE 2 DIABETES MELLITUS WITHOUT COMPLIC 01/03/2016 JORGE LUIS TYLER MD Ot S60.222A CONTUSION OF LEFT HAND, INITIAL ENCOUNTE 01/03/2016 JORGE LUIS TYLER MD Ot W22.8XXA STRIKING AGAINST OR STRUCK BY OTHER OBJE 01/03/2016 JORGE LUIS TYLER MD Ot Y92.[address] IN [facility] NON-INSTITUT (PRIVATE 01/03/2016 JORGE LUIS TYLER MD Ot Y99.8 OTHER EXTERNAL CAUSE STATUS 01/03/2016 JORGE LUIS TYLER MD Ot Z79.4 USP (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 01/06/2016 JORGE LUIS TYLER MD Ot E11.9 TYPE 2 DIABETES MELLITUS WITHOUT COMPLIC 01/06/2016 JORGE LUIS TYLER MD Ot S60.222A CONTUSION OF LEFT HAND, INITIAL ENCOUNTE 01/06/2016 JORGE LUIS TYLER MD Ot W22.8XXA STRIKING AGAINST OR STRUCK BY OTHER OBJE 01/06/2016 JORGE LUIS TYLER MD Ot Y92.[address] IN [facility] NON-INSTITUT (PRIVATE 01/06/2016 JORGE LUIS TYLER MD Ot Y99.8 OTHER EXTERNAL CAUSE STATUS 01/06/2016 JORGE LUIS TYLER MD, Ot Z79.4 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 01/21/2016 MAUDE NG Ot 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 LYMPHOCYTIC LEUK OF B-CELL TYPE 01/21/2016 MAUDE NGP Ot E11.9 TYPE 2 DIABETES MELLITUS WITHOUT COMPLIC 01/21/2016 MAUDE NG Ot I10 ESSENTIAL (PRIMARY) HYPERTENSION 01/21/2016 MAUDE NG Ot Z79.4 USP (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 01/21/2016 MAUDE NG Ot Z79.899 OTHER USP (CURRENT) DRUG THERAPY 03/16/2016 VIRY MORAN Ot 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 LYMPHOCYTIC LEUK OF B-CELL TYPE 03/16/2016 VIRY MORAN Ot E11.9 TYPE 2 DIABETES MELLITUS WITHOUT COMPLIC 03/16/2016 VIRY MORAN Ot I10 ESSENTIAL (PRIMARY) HYPERTENSION 03/16/2016 VIRY MORAN Ot Z79.4 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 03/16/2016 VIRY MORAN Ot Z79.899 OTHER PROCUREMENT PROFESSIONAL LOGISTICS (CURRENT) DRUG THERAPY 04/04/2016 Ot 788.20 RETENTION OF URINE NOS 04/04/2016 Ot 787.20 DYSPHAGIA, UNSPECIFIED 04/04/2016 VIRY MORAN Ot 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, 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 04/04/2016 NGMAUDE Vernon S INSPECTOR RAW QUARTZ Ot 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, 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 04/04/2016 NGMAUDE Vernon S INSPECTOR RAW QUARTZ Ot 250.00 DIAB ALONDRA WO COMPL, TYPE II OR UNSPEC TY 04/04/2016 NG, HILAH S INSPECTOR RAW QUARTZ Ot 438.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,HEMIPLEGIA AFFECTING 04/04/2016 NGMAUDE Vernon S INSPECTOR RAW QUARTZ Ot 780.79 OTH MALAISE FATIGUE 04/04/2016 NGRAFIAH S INSPECTOR RAW QUARTZ Ot V58.67 LONG-TERM (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 04/04/2016 NGRAFIAH S INSPECTOR RAW QUARTZ Ot V58.69 OTH MED,LT,CURRENT USE 04/04/2016 MAUDE NG S INSPECTOR RAW QUARTZ Ot 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, 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 04/04/2016 NGMAUDE Vernon S INSPECTOR RAW QUARTZ Ot V58.69 OTH MED,LT,CURRENT USE 04/04/2016 VIRY MORAN Ot 729.5 PAIN IN LIMB 04/04/2016 NGMAUDE Vernon S INSPECTOR RAW QUARTZ Ot 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, 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 04/04/2016 NGMAUDE Vernon S INSPECTOR RAW QUARTZ Ot 250.00 DIAB ALONDRA WO COMPL, TYPE II OR UNSPEC TY 04/04/2016 NGMAUDE S INSPECTOR RAW QUARTZ Ot V58.67 LONG-TERM (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 04/04/2016 MAUDE NG S INSPECTOR RAW QUARTZ Ot V58.69 OTH MED,LT,CURRENT USE 04/04/2016 MAUDE NG S INSPECTOR RAW QUARTZ Ot V76.12 OTH SCREEN MAMMO-MALIGN NEOPLASM OF SILVINA 04/04/2016 NGRAFIAH S INSPECTOR RAW QUARTZ Ot 793.80 UNSPEC ABNORMAL MAMMOGRAM 04/04/2016 Ot 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, 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 04/04/2016 Ot 250.00 DIAB ALONDRA WO COMPL, TYPE II OR UNSPEC TY 04/04/2016 Ot V58.67 LONG-TERM ( 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 04/04/2016 Ot V58.69 OTH MED,LT, CURRENT USE 04/04/2016 Ot 272.4 HYPERLIPIDEMIA NEC/NOS 04/04/2016 DELLA MCGEE INSPECTOR RAW QUARTZ Ot R22.31 LOCALIZED SWELLING, MASS AND LUMP, RIGHT 04/04/2016 MAUDE NG INSPECTOR RAW QUARTZ Ot 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 LYMPHOCYTIC LEUK OF B-CELL TYPE 04/04/2016 MAUDE NG INSPECTOR RAW QUARTZ Ot E11.9 TYPE 2 DIABETES MELLITUS WITHOUT COMPLIC 04/04/2016 MAUDE NG INSPECTOR RAW QUARTZ Ot I10 ESSENTIAL (PRIMARY) HYPERTENSION 04/04/2016 NGMAUDE Vernon INSPECTOR RAW QUARTZ Ot Z79.4 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 04/04/2016 MAUDE NG INSPECTOR RAW QUARTZ Ot Z79.899 OTHER USP (CURRENT) DRUG THERAPY 04/04/2016 MAUDE NG INSPECTOR RAW QUARTZ Ot 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 LYMPHOCYTIC LEUK OF B-CELL TYPE 04/04/2016 MAUDE NG INSPECTOR RAW QUARTZ Ot E11.9 TYPE 2 DIABETES MELLITUS WITHOUT COMPLIC 04/04/2016 MAUDE NG INSPECTOR RAW QUARTZ Ot I10 ESSENTIAL (PRIMARY) HYPERTENSION 04/04/2016 NG MAUDE Vernon INSPECTOR RAW QUARTZ Ot Z79.4 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 04/04/2016 MAUDE NGP Ot Z79.899 OTHER USP (CURRENT) DRUG THERAPY 04/04/2016 SASHAVIRY N Ot 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 LYMPHOCYTIC LEUK OF B-CELL TYPE 04/04/2016 SASHADUSTY ROWLANDWILEY N Ot E11.9 TYPE 2 DIABETES MELLITUS WITHOUT COMPLIC 04/04/2016 SASHAVIRY N Ot I10 ESSENTIAL (PRIMARY) HYPERTENSION 04/04/2016 SASHAVIRY ROWLAND N Ot Z79.4 USP (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 04/04/2016 VIRY MORAN N Ot Z79.899 OTHER PROCUREMENT PROFESSIONAL LOGISTICS (CURRENT) DRUG THERAPY 04/06/2016 VIRY MORAN N Ot 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 LYMPHOCYTIC LEUK OF B-CELL TYPE 04/06/2016 VIRY MORAN N Ot E11.9 TYPE 2 DIABETES MELLITUS WITHOUT COMPLIC 04/06/2016 SASHAVIRY ROWLAND N Ot I10 ESSENTIAL (PRIMARY) HYPERTENSION 04/06/2016 SASHAVIRY ROWLAND N Ot Z79.4 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 04/06/2016 VIRY MORAN N Ot Z79.899 OTHER USP (CURRENT) DRUG THERAPY 06/22/2016 MAUDE NG INSPECTOR RAW QUARTZ Ot R92.8 OTH ABN AND INCONCLUSIVE FINDINGS ON DX 07/12/2016 MAUDE NG INSPECTOR RAW QUARTZ Ot R92.8 OTH ABN AND INCONCLUSIVE FINDINGS ON DX 08/29/2016 VIRY MORAN Ot 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 LYMPHOCYTIC LEUK OF B-CELL TYPE 08/29/2016 VIRY MORAN N Ot E11.9 TYPE 2 DIABETES MELLITUS WITHOUT COMPLIC 08/29/2016 VIRY MORAN N Ot I10 ESSENTIAL (PRIMARY) HYPERTENSION 08/29/2016 VIRY MORAN N Ot Z79.4 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 08/29/2016 VIRY MORAN N Ot Z79.899 OTHER PROCUREMENT PROFESSIONAL LOGISTICS (CURRENT) DRUG THERAPY 10/17/2016 VIRY MORAN Ot 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 LYMPHOCYTIC LEUK OF B-CELL TYPE 10/17/2016 VIRY MORAN N Ot E11.9 TYPE 2 DIABETES MELLITUS WITHOUT COMPLIC 10/17/2016 VIRY MORAN Sofia Ot I10 ESSENTIAL (PRIMARY) HYPERTENSION 10/17/2016 VIRY MORAN N Ot Z79.4 USP (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 10/17/2016 VIRY MORAN Sofia Ot Z79.899 OTHER USP (CURRENT) DRUG THERAPY 11/20/2016 ALMA SAHU, EDWIN [...] PAIN 11/20/2016 EDWIN MARQUEZ MD Ot Z79.02 USP (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 ANTITHROMBOTI 11/20/2016 EDWIN MARQUEZ MD Ot Z79.4 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 11/20/2016 EDWIN MARQUEZ MD Ot Z79.899 OTHER PROCUREMENT PROFESSIONAL LOGISTICS (CURRENT) DRUG THERAPY 11/21/2016 EDWIN MARQUEZ MD [...] PAIN 11/21/2016 EDWIN MARQUEZ MD Ot Z79.02 USP (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 ANTITHROMBOTI 11/21/2016 EDWIN MARQUEZ MD Ot Z79.4 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 11/21/2016 EDWIN MARQUEZ MD T Ot Z79.899 OTHER PROCUREMENT PROFESSIONAL LOGISTICS (CURRENT) DRUG THERAPY 11/22/2016 EDWIN MARQUEZ MD [...] PAIN 11/22/2016 EDWIN MARQUEZ MD Ot Z79.02 PROCUREMENT PROFESSIONAL LOGISTICS (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 ANTITHROMBOTI 11/22/2016 EDWIN MARQUEZ MD T Ot Z79.4 USP (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 11/22/2016 EDWIN MARQUEZ MD Ot Z79.899 OTHER USP (CURRENT) DRUG THERAPY 12/22/2016 VIRY MORAN Ot 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 LYMPHOCYTIC LEUK OF B-CELL TYPE 12/22/2016 VIRY MORAN Ot E11.9 TYPE 2 DIABETES MELLITUS WITHOUT COMPLIC 12/22/2016 VIRY MORAN Sofia Ot I10 ESSENTIAL (PRIMARY) HYPERTENSION 12/22/2016 VIRY MORAN Sofia Ot Z79.4 USP (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 12/22/2016 VIRY MORAN Sofia Ot Z79.899 OTHER USP (CURRENT) DRUG THERAPY 12/24/2016 MAUDE NG INSPECTOR RAW QUARTZ Ot 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 LYMPHOCYTIC LEUK OF B-CELL TYPE 12/24/2016 MAUDE NG INSPECTOR RAW QUARTZ Ot E11.9 TYPE 2 DIABETES MELLITUS WITHOUT COMPLIC 12/24/2016 MAUDE NG INSPECTOR RAW QUARTZ Ot I10 ESSENTIAL (PRIMARY) HYPERTENSION 12/24/2016 MAUDE NG INSPECTOR RAW QUARTZ Ot Z79.4 USP (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 12/24/2016 MAUDE NG INSPECTOR RAW QUARTZ Ot Z79.899 OTHER PROCUREMENT PROFESSIONAL LOGISTICS (CURRENT) DRUG THERAPY 12/24/2016 MAUDE NG INSPECTOR RAW QUARTZ Ot 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 LYMPHOCYTIC LEUK OF B-CELL TYPE 12/24/2016 MAUDE NG INSPECTOR RAW QUARTZ Ot E11.9 TYPE 2 DIABETES MELLITUS WITHOUT COMPLIC 12/24/2016 MAUDE NG INSPECTOR RAW QUARTZ Ot I10 ESSENTIAL (PRIMARY) HYPERTENSION 12/24/2016 MAUDE NG INSPECTOR RAW QUARTZ Ot Z79.4 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 12/24/2016 MAUDE NG INSPECTOR RAW QUARTZ Ot Z79.899 OTHER PROCUREMENT PROFESSIONAL LOGISTICS (CURRENT) DRUG THERAPY 12/24/2016 MAUDE NG INSPECTOR RAW QUARTZ Ot 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 LYMPHOCYTIC LEUK OF B-CELL TYPE 12/24/2016 MAUDE NG INSPECTOR RAW QUARTZ Ot E11.9 TYPE 2 DIABETES MELLITUS WITHOUT COMPLIC 12/24/2016 MAUDE NG INSPECTOR RAW QUARTZ Ot I10 ESSENTIAL (PRIMARY) HYPERTENSION 12/24/2016 MAUDE NG INSPECTOR RAW QUARTZ Ot Z79.4 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 12/24/2016 MAUDE NG INSPECTOR RAW QUARTZ Ot Z79.899 OTHER USP (CURRENT) DRUG THERAPY 12/24/2016 SASHA VIRY Black Ot 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 LYMPHOCYTIC LEUK OF B-CELL TYPE 12/24/2016 SASHA, VIRY Black Ot E11.9 TYPE 2 DIABETES MELLITUS WITHOUT COMPLIC 12/24/2016 SASHAVIRY Ot I10 ESSENTIAL (PRIMARY) HYPERTENSION 12/24/2016 SASHAVIRY Ot Z79.4 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 12/24/2016 SASHA VIRY Black Ot Z79.899 OTHER PROCUREMENT PROFESSIONAL LOGISTICS (CURRENT) DRUG THERAPY 12/24/2016 SASHA VIRY Black Ot 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 LYMPHOCYTIC LEUK OF B-CELL TYPE 12/24/2016 SASHAVIRY Ot E11.9 TYPE 2 DIABETES MELLITUS WITHOUT COMPLIC 12/24/2016 SASHAVIRY Ot I10 ESSENTIAL (PRIMARY) HYPERTENSION 12/24/2016 SASHAVIRY Ot Z79.4 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 12/24/2016 SASHAVIRY ROWLAND Ot Z79.899 OTHER USP (CURRENT) DRUG THERAPY 01/11/2017 EDWIN MARQUEZ MD [...] 01/11/2017 EDWIN MARQUEZ MD T Ot Z79.02 USP (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 ANTITHROMBOTI 01/11/2017 EDWIN MARQUEZ MD T Ot Z79.4 USP (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 01/11/2017 EDWIN MARQUEZ MD T Ot Z79.899 OTHER USP (CURRENT) DRUG THERAPY 01/25/2017 VIRY MORAN Ot 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 LYMPHOCYTIC LEUK OF B-CELL TYPE 01/25/2017 VIRY MORAN N Ot E11.9 TYPE 2 DIABETES MELLITUS WITHOUT COMPLIC 01/25/2017 SASHAVIRY ROWLAND N Ot I10 ESSENTIAL (PRIMARY) HYPERTENSION 01/25/2017 VIRY MORAN Ot Z79.4 USP (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 01/25/2017 VIRY MORAN N Ot Z79.899 OTHER USP (CURRENT) DRUG THERAPY 03/01/2017 ANTONINO WALLER DEAN OF WOMEN Ot N64.52 NIPPLE DISCHARGE 03/06/2017 ANTONINO WALLER R DEAN OF WOMEN Ot N64.52 NIPPLE DISCHARGE 03/20/2017 VIRY MORAN N Ot 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 LYMPHOCYTIC LEUK OF B-CELL TYPE 03/20/2017 VIRY MORAN N Ot E11.9 TYPE 2 DIABETES MELLITUS WITHOUT COMPLIC 03/20/2017 VIRY MORAN N Ot I10 ESSENTIAL (PRIMARY) HYPERTENSION 03/20/2017 SASHAVIRY ROWLAND N Ot Z79.4 USP (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 03/20/2017 VIRY MORAN N Ot Z79.899 OTHER USP (CURRENT) DRUG THERAPY 03/30/2017 CHRISTIN ANTONINO R DEAN OF WOMEN Ot N64.52 NIPPLE DISCHARGE 07/31/2017 VIRY MORAN N Ot 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 LYMPHOCYTIC LEUK OF B-CELL TYPE 07/31/2017 SASHA DUSTYWILEY N Ot E11.9 TYPE 2 DIABETES MELLITUS WITHOUT COMPLIC 07/31/2017 VIRY MORAN N Ot I10 ESSENTIAL (PRIMARY) HYPERTENSION 07/31/2017 VIRY MORAN N Ot 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.4 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 07/31/2017 VIRY MORAN N Ot Z79.899 OTHER USP (CURRENT) DRUG THERAPY 08/13/2017 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 APRN Ot E11.9 TYPE 2 DIABETES MELLITUS WITHOUT COMPLIC 08/13/2017 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 APRN Ot E78.00 PURE HYPERCHOLESTEROLEMIA, UNSPECIFIED 08/13/2017 FRANCISCO OGMEZ DEAN OF WOMEN Ot I10 ESSENTIAL (PRIMARY) HYPERTENSION 08/13/2017 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 DEAN OF WOMEN Ot K21.9 GASTRO-ESOPHAGEAL REFLUX DISEASE WITHOUT 08/13/2017 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 APRN Ot R10.84 GENERALIZED ABDOMINAL PAIN 08/13/2017 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 APRN Ot R11.0 NAUSEA 08/13/2017 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 APRN Ot R31.9 HEMATURIA, UNSPECIFIED 08/13/2017 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 APRN Ot Z79.4 USP (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 08/13/2017 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 DEAN OF WOMEN Ot Z79.82 USP (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 ASPIRIN 08/13/2017 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 DEAN OF WOMEN Ot Z85.6 PERSONAL HISTORY OF LEUKEMIA 08/13/2017 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 DEAN OF WOMEN Ot Z86.73 PRSNL HX OF TIA (TIA), AND CEREB INFRC W 08/13/2017 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 APRN Ot Z98.51 TUBAL LIGATION STATUS Procedures Code Description [place] [address] ROUTINE VENIPUNCTURE 06/26/2012 35269 XRAY FOOT RIGHT COMP MIN 3 VIEWS 06/26/2012 04047 A1C (IN-HOUSE) 06/26/2012 48444 MICRO ALBUMIN-IN HOUSE 06/26/2012 81433 UA W/ CULTURE IF INDICATED 06/26/2012 56304 BMP 06/26/2012 5823790 GFR CALC (RESULT ONLY) 06/26/2012 02064 LIPID PANEL 07/03/2012 28561 VITAMIN D 25-HYDROXY (D2,D3 , TOTAL) 07/04/2012 98865 TSH 07/04/2012 29028 ROUTINE VENIPUNCTURE 07/04/2012 08266 BARIUM SWALLOW XRAY MODIFIED 07/04/2012 Physical Speech Therapy, [facility] 08/22/2012 35231 ROUTINE VENIPUNCTURE 10/16/2012 87640 MICRO ALBUMIN-IN HOUSE 10/16/2012 09643 A1C (IN-HOUSE) 10/16/2012 26204 CMP 10/16/2012 2188926 GFR CALC (RESULT ONLY) 10/16/2012 91605 CBC 10/16/2012 91807 ROUTINE VENIPUNCTURE 11/13/2012 18224 CBC 11/13/2012 94112 PERIPHERIAL BLOOD SMEAR 11/19/2012 3786531 HEMATOLOGY OTHER REPORT 11/20/2012 35210 ROUTINE VENIPUNCTURE 11/28/2012 Medical O Viry Moran 11/28/2012 88326 PERIPHERAL BLOOD FLOW CYTOMETRY 12/02/2012 88871 ROUTINE VENIPUNCTURE 01/23/2013 37945 A1C (IN-HOUSE) 01/23/2013 88254 MICRO ALBUMIN-IN HOUSE 01/23/2013 65488 BMP 01/23/2013 06947 MAGNESIUM 01/23/2013 3467411 GFR CALC (RESULT ONLY) 01/23/2013 62051 A1C (IN-HOUSE) 05/07/2013 49627 ROUTINE VENIPUNCTURE 09/11/2013 30140 HEMOGLOBIN (IN-HOUSE) 09/11/2013 29933 A1C (IN-HOUSE) 09/11/2013 76222 CMP 09/11/2013 60938 LIPID PANEL 09/11/2013 52741 MAGNESIUM 09/11/2013 3933424 GFR CALC (RESULT ONLY) 09/11/2013 18323 MICROALBUMIN 09/11/2013 31642 ROUTINE VENIPUNCTURE 11/24/2013 66383 BMP 11/24/2013 62623 A1C (IN-HOUSE) 01/07/2014 28909 A1C (IN-HOUSE) 04/08/2014 33780 A1C (IN-HOUSE) 07/08/2014 96685 US BREAST ULTRASOUND, RIGHT 07/22/2014 00826 MAMMOGRAM DX, RIGHT 07/22/2014 Results Test Result [...] Status Pt. Type Provider Facility Loc./Unit Complaint [id number] 10/14/2014 10:54:00 10/14/2014 23:59:59 CLS Outpatient CATALINO PEREZ DO [id number] 07/08/2014 13:33:00 07/08/2014 23:59:59 CLS Outpatient CATALINO PEREZ DO Giovani [id number] 07/08/2014 13:33:00 07/08/2014 23:59:59 CLS Outpatient MADL DEAN OF WOMEN, DELLA L [id number] 04/08/2014 13:02:00 04/08/2014 23:59:59 CLS Outpatient MADL DEAN OF WOMEN, DELLA L [id number] 04/08/2014 13:02:00 04/08/2014 23:59:59 CLS Outpatient MADL DEAN OF WOMEN, DELLA L [id number] 01/07/2014 14:50:00 01/07/2014 23:59:59 CLS Outpatient MADL DEAN OF WOMEN, DELLA L [id number] 01/07/2014 14:50:00 01/07/2014 23:59:59 CLS Outpatient MADL DEAN OF WOMEN, DELLA L [id number] 12/23/2013 14:44:00 12/23/2013 23:59:59 CLS Outpatient TIN OCASIO MD [id number] 11/24/2013 09:00:00 11/24/2013 23:59:59 CLS Outpatient CATALINO PEREZ DO Giovani [id number] 09/11/2013 09:49:00 09/11/2013 23:59:59 CLS Outpatient DANIEL CRISTINA MD [id number] 05/07/2013 16:19:00 05/07/2013 23:59:59 CLS Outpatient DANIEL CRISTINA MD [id number] 10/16/2012 09:04:00 10/16/2012 23:59:59 CLS Outpatient DANIEL CRISTINA MD [id number] 09/02/2012 18:28:00 09/02/2012 23:59:59 CLS Outpatient CATALINO PEREZ DO [id number] 07/03/2012 08:01:00 07/03/2012 23:59:59 [place] [id number] 07/03/2012 08:01:00 07/03/2012 23:59:59 CLS Outpatient [id number] 01/23/2013 10:45:00 Document Registration [id number] 12/25/2012 15:29:00 Document Registration [id number] 11/28/2012 13:45:00 Document Registration [id number] 11/19/2012 14:35:00 Document Registration [id number] 11/13/2012 09:51:00 Document Registration [id number] 08/09/2017 10:08:00 08/09/2017 13:06:00 DIS Outpatient 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 APRN [facility] ER NAUSEA,HEADACHE,ABD PAIN [id number] 07/04/2017 08:43:00 07/04/2017 23:59:59 CLS Outpatient VIYR MORAN [facility] ONC [id number] 12/20/2016 09:31:00 03/20/2017 00:01:00 DIS Outpatient VIRY MORAN [facility] ONC [id number] 03/01/2017 08:42:00 03/01/2017 23:59:59 CLS Outpatient ANTONINO WALLER APRN [facility] RAD N64.52 BLOODY DISCHARGE FROM R NIPPLE [id number] 11/20/2016 16:08:00 11/20/2016 17:58:00 DIS Outpatient ALMA SAHU, EDWIN Carvajal [facility] ER COUGH/BACK PAIN [id number] 07/19/2016 09:09:00 10/17/2016 00:01:00 DIS Outpatient VIRY MORAN [facility] ONC [id number] 06/21/2016 13:05:00 06/21/2016 23:59:59 CLS Outpatient MAUDE NG [facility] RAD ABNORMAL MAMMO [id number] 03/15/2016 08:55:00 03/15/2016 23:59:59 CLS Outpatient VIRY MORAN [facility] ONC [id number] 01/03/2016 13:34:00 01/03/2016 14:45:00 DIS Emergency JAYSON SAHU, JORGE LUIS Matute [facility] ER LEFT HAND INJURY [id number] 12/22/2015 13:21:00 12/22/2015 23:59:59 CLS Outpatient MAUDE NG INSPECTOR RAW QUARTZ [facility] ONC [id number] 10/25/2015 09:32:00 10/25/2015 12:15:00 DIS Outpatient CHITO HERNANDEZ MD [facility] SDC SCREENING [id number] 10/21/2015 06:12:00 10/21/2015 12:31:00 DIS Outpatient CHITO HERNANDEZ MD [facility] PREOP SCREENING [id number] 09/16/2015 09:27:00 09/16/2015 23:59:59 CLS Outpatient MAUDE NG INSPECTOR RAW QUARTZ [facility] ONC [id number] 06/14/2015 13:45:00 06/14/2015 23:59:59 CLS Outpatient DELLA MCGEE INSPECTOR RAW QUARTZ [facility] RAD RT AXILLARY KNOT [id number] 03/18/2015 12:42:00 05/05/2015 00:01:00 DIS Outpatient VIRY MORAN [facility] ONC [id number] 09/05/2014 10:01:00 09/05/2014 12:42:00 DIS Emergency 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 APRN [facility] ER LEG SWELLING [id number] 07/22/2014 13:16:00 07/22/2014 23:59:59 CLS Outpatient MAUDE GN INSPECTOR RAW QUARTZ [facility] RAD ABNORMAL MAMMO [id number] 07/15/2014 10:28:00 07/15/2014 23:59:59 CLS Outpatient MAUDE NG INSPECTOR RAW QUARTZ [facility] RAD SCREENING [id number] 07/08/2014 09:25:00 07/08/2014 23:59:59 CLS Outpatient MAUDE NG INSPECTOR RAW QUARTZ [facility] ONC [id number] 04/08/2014 09:04:00 07/07/2014 00:01:00 DIS Outpatient VIRY MORAN Sofia [facility] ONC [id number] 04/08/2014 10:11:00 04/08/2014 23:59:59 CLS Outpatient SASHA DUSTYWILEY Sofia [facility] RAD LEFT L/E PAIN AND SWELLING [id number] 11/19/2013 10:00:00 11/19/2013 23:59:59 CLS Outpatient MAUDE NG INSPECTOR RAW QUARTZ [facility] ONC [id number] 10/01/2013 12:28:00 10/01/2013 14:10:00 DIS Emergency 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 APRN [facility] ER BACK PAIN [id number] 06/19/2013 09:12:00 09/17/2013 00:01:00 DIS Outpatient [id number] 08/27/2013 12:11:00 08/27/2013 14:51:00 DIS Emergency JAMIE GAMBLE DO [facility] ER [id number] 08/19/2013 13:43:00 08/19/2013 23:59:59 CLS Outpatient [id number] 03/20/2013 12:45:00 03/20/2013 23:59:59 CLS Outpatient MAUDE NG INSPECTOR RAW QUARTZ [facility] ONC [id number] 12/26/2012 13:21:00 03/11/2013 00:01:00 DIS Outpatient SASHAVIRY ROWLAND [facility] ONC [id number] 12/18/2012 07:59:00 12/18/2012 23:59:59 CLS Outpatient SASHADUSTYWILEY Black [facility] RAD CLL [id number] 04/04/2016 10:34:00 Document Registration [id number] 04/04/2016 10:34:00 Document Registration [id number] 10/30/2014 14:04:00 Document Registration [id number] 10/14/2014 09:41:00 Document Registration [id number] 02/15/2014 19:45:00 Document Registration [id number] 07/09/2012 10:29:00 Document Registration [id number] 07/10/2011 12:49:00 Document Registration [id number] 05/26/2011 12:31:00 Document Registration [id number] 05/23/2011 23:45:00 Document Registration [id number] 10/06/2010 13:20:00 Document Registration
[2017-08-23] MEDS ORDERED: GLIM2TAB (21:11)
[2017-08-23] MEDS ORDERED: ESCI10TA55 (21:11)
[2017-08-23] MEDS ORDERED: morphine INJ 10 MG/ML 1ML (SYR OR VIAL) IM STA (21:43)
--- NOTE | 2017-08-23 22:00 | ED Lower Extremity ---
General Chief Complaint: Trauma-Non Activation Stated Complaint: LT RIB/HIP PAIN AFTER FALL Nursing Triage Note: fell from standing position. 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 Pt states she was walking out in her yard when she slipped in the snow/ice in the grass and landed on her L hip. She is currently c/o L hip and L leg pain made worse by movement and she is stating that it is a sharp throbbing pain shooting down her leg and up into her lower L back. Pt denies hitting her head, any LOC, syncope, dizziness, any abd pain, any numbness or tingling, or any focal neurological deficits. Pt took 2 muscle relaxers and 3 Tylenol ~ 3 hours ago to relieve the pain and it hasn't helped. Onset: this afternoon Pain/Injury Location: left hip Method of Injury: fell Modifying Factors: Improves With Movement (YASHIRA CABRERA MEDICAL STUDENT) Allergies and Home Medications Allergies Coded Allergies: NKANo Known Allergies (Verified Allergy, Unknown, 10/25/15) Home Medications Aspirin 81 Mg Chew, 81 MG PO DAILY, (Reported) Atorvastatin Calcium 40 Mg Tablet, 40 MG PO HS, (Reported) Clopidogrel 75 Mg Tablet, 75 MG PO DAILY, (Reported) Escitalopram Oxalate 10 Mg Tablet, (Reported) Glimepiride 2 Mg Tablet, (Reported) Insulin Aspart 300 Units/3 Ml Solution, 30 UNITS SQ TIDAC, (Reported) Insulin Detemir 100 Unit/1 Ml Insuln.pen, 45 UNIT SQ BID, (Reported) Lisinopril 40 Mg Tablet, 40 MG PO DAILY, (Reported) Metoprolol Succinate 25 Mg Tab.er.24h, 25 MG PO DAILY, #90 (Reported) Constitutional: no symptoms reported, No dizziness, No fever EENTM: no symptoms reported, No blurred vision, No double vision Respiratory: no symptoms reported, No cough, No short of breath Cardiovascular: no symptoms reported, No chest pain, No syncope Gastrointestinal: No abdominal pain, No nausea, No vomiting Musculoskeletal: back pain (Lower), joint pain (L hip, L leg pain), No neck pain Skin: no symptoms reported, No change in color, No rash, No other (ecchymosis) (YASHIRA CABRERA MEDICAL STUDENT) All Other Systems Reviewed Negative Unless Noted: Yes (Negative excepted noted.) (YASHIRA CABRERA MEDICAL STUDENT) Past Dluhwgu-Aknghx-Cknotp Hx Patient Social History Alcohol Use: Denies Use Recreational Drug Use: No Smoking Status: Never a Smoker 2nd Hand Smoke Exposure: No Recent Foreign Travel: No Contact w/Someone Who Travel: No Recent Infectious Disease Expo: No Recent Hopitalizations: No (YASHIRA CABRERA MEDICAL STUDENT) Immunizations Up To Date Tetanus Booster (TDap): Less than 5yrs Date of Pneumonia Vaccine: May 06, 2013 Date of Influenza Vaccine: May 06, 2015 (YASHIRA CABRERA MEDICAL STUDENT) Seasonal Allergies Seasonal Allergies: No (YASHIRA CABRERA MEDICAL STUDENT) Surgeries History of Surgeries: Yes Surgeries: 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 (YASHIRA CABRERA MEDICAL STUDENT) Respiratory History of Respiratory Disorde: No (YASHIRA CABRERA MEDICAL STUDENT) Cardiovascular History of Cardiac Disorders: Yes Cardiac Disorders: High Cholesterol, Hypertension (YASHIRA CABRERA MEDICAL STUDENT) Neurological History of Neurological Disord: Yes Neurological Disorders: Stroke (YASHIRA CABRERA MEDICAL STUDENT) Reproductive System : No Hx Reproductive Disorders: Yes (D&C 2000 FOR HEAVY MENSTRUAL BLEEDING) 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, Menopausal (YASHIRA CABRERA MEDICAL STUDENT) Genitourinary History of Genitourinary Disor: No Genitourinary Disorders: Renal Failure (YASHIRA CABRERA MEDICAL STUDENT) Gastrointestinal History of Gastrointestinal Di: Yes Gastrointestinal Disorders: Gastroesophageal Reflux (YASHIRA CABRERA MEDICAL STUDENT) Musculoskeletal History of Musculoskeletal Dis: Yes Musculoskeletal Disorders: Arthritis (YASHIRA CABRERA MEDICAL STUDENT) Endocrine History of Endocrine Disorders: Yes Endocrine Disorders: Diabetes, Insulin dep (YASHIRA CABRERA MEDICAL STUDENT) HEENT History of HEENT Disorders: No (YASHIRA CABRERA MEDICAL STUDENT) Cancer History of Cancer: Yes Cancer: Leukemia (YASHIRA CABRERA MEDICAL STUDENT) Psychosocial History of Psychiatric Problem: No (YASHIRA CABRERA MEDICAL STUDENT) Integumentary History of Skin or Integumenta: No (YASHIRA CABRERA MEDICAL STUDENT) Blood Transfusions History of Blood Disorders: No (YASHIRA CABRERA MEDICAL STUDENT) Physical Exam Vital Signs Vital Sign - Last 12Hours 08/23/17 21:05 Temp 97.7 Pulse 72 Resp 16 B/P (MAP) 142/66 (91) Pulse Ox 96 O2 Delivery Room Air (RUBY FOX MD) Vital Signs Capillary Refill : Less Than 3 Seconds (YASHIRA CABRERA MEDICAL STUDENT) General Appearance: WD/WN, mild distress (secondary to pain) HEENT: PERRL/EOMI, normal ENT inspection, TMs normal, pharynx normal Neck: non-tender, full range of motion, supple, normal inspection Cardiovascular: normal peripheral pulses, regular rate, rhythm, no edema, no murmur Respiratory: chest non-tender, lungs clear, normal breath sounds, no respiratory distress, no accessory muscle use Gastrointestinal: normal bowel sounds, non tender, soft, No guarding, No rebound, No tenderness Back: no CVA tenderness, vertebral tenderness (Lumbar region, L3-L5) Hips: right hip non-tender, right hip normal inspection, right hip normal range of motion, right hip no evidence of injury, left hip bone tenderness, left hip limited range of motion (secondary to pain), left hip pain Legs: right leg non-tender, right leg normal inspection, right leg normal range of motion, right leg no evidence of injury, left leg limited range of motion (secondary to pain), left leg pain Knees: bilateral knee non-tender, bilateral knee normal inspection, bilateral knee normal range of motion, bilateral knee no evidence of injury Ankles: bilateral ankle non-tender, bilateral ankle normal inspection, bilateral ankle normal range of motion, bilateral ankle no evidence of injury Feet: bilateral foot non-tender, bilateral foot normal inspection, bilateral foot normal range of motion, bilateral foot no evidence of injury Neurologic/Tendon: normal sensation, normal motor functions, normal tendon functions, responds to pain, no evidence tendon injury 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, no motor/sensory deficits, alert, normal mood/affect, oriented x 3 Skin: normal color, warm/dry (YASHIRA CABRERA MEDICAL STUDENT) Respiratory: lungs clear, normal breath sounds Knees: right knee non-tender, right knee normal inspection, right knee normal range of motion, right knee no evidence of injury, left knee pain (posterior and along the musculature of the thigh posterior), left knee soft tissue tenderness (posterior) Skin: No ecchymosis (RUBY FOX MD) Progress/Results/Core Measures Results/Orders My Orders Orders - RUBY FOX MD Ct Head Wo (08/23/17 21:43) Morphine Injection (Morphine Injection (08/23/17 21:43) Knee, Left, 3 Views (08/23/17 21:43) Pelvis With Left Hip 2-3 Views (08/23/17 21:43) Rx-Ondansetron Po (Rx-Zofran Po) (08/23/17 23:09) Rx-Tramadol Hcl (Rx-Ultram) (08/23/17 23:09) (RUBY FOX MD) Vital Signs/I&O Vital Sign - Last 12Hours 08/23/17 21:05 Temp 97.7 Pulse 72 Resp 16 B/P (MAP) 142/66 (91) Pulse Ox 96 O2 Delivery Room Air (RUBY FOX MD) Blood Pressure Mean: 91 Progress Note : Time: 22:08 Progress Note Pt is a 67 yo female with a PMH of CLL, CVA, blood thinners who presents today with a fall on her L hip. Although she denies hitting her head or any LOC, n/v because she has CLL and is on blood thinners, discussed possibility of a brain bleed with the patient and patient agrees with plan to CT head in addition to imaging L hip and L knee. Will give 5 of Morphine to alleviate pain prior to imaging. (YASHIRA CABRERA MEDICAL STUDENT) Progress Note : Progress Note I have seen and evaluated the patient and agree with above except as indicated. I have directed the plan of care. Patient here after fall in which she states that she fell on her leg went behind her and she landed on her left hip. Does have pain in the mid lumbar region lateral on the left side as well as some lateral hip pain and posterior knee pain. X-ray of pelvis and knee ordered. We will get CT of the head do to history of anticoagulant use. The patient did receive morphine 5 mg IM which didn't help the pain. She does have nausea afterwards. Does report nausea with narcotics. We will send patient home and go pack of Zofran and tramadol as pain reliever. CT of the head is negative. X-rays of the pelvis, hip and knee do not show any acute fractures. Discharged home with return precautions. Patient verbalize understanding instructions and agreement with plan. (RUBY FOX MD) Diagnostic Imaging Diagonstic Imaging: Xray Plain Films/CT/US/NM/MRI: pelvis, hip Comments Degenerative changes but no acute fracture Reviewed: Reviewed by Me Diagonstic Imaging: Xray Plain Films/CT/US/NM/MRI: knee Comments No acute fractures but chronic degeneration noted. Reviewed: Reviewed by Me Diagonstic Imaging: CT Plain Films/CT/US/NM/MRI: head Comments No acute intracranial findings Reviewed: Reviewed Night [facility] Study, Reviewed by Me (RUBY FOX MD) Departure Impression Impression: Primary Impression: Acute low back pain Additional Impressions: Muscle strain of left lower leg Qualified Codes: S86.912A - Strain of unspecified muscle(s) and tendon(s) at lower leg level, left leg, initial encounter Contusion of left hip Qualified Codes: S70.02XA - Contusion of left hip, initial encounter Disposition: HOME, SELF-CARE Condition: Improved Departure-Patient Inst. Decision time for Depature: 23:14 (RUBY FOX MD) Referrals: [facility] [place] (PCP) Primary Care Physician DELLA MCGEE (Family) Primary Care Physician Patient Instructions: Contusion (DC), Lower Extremity Muscle Strain (DC) Add. Discharge Instructions: All discharge instructions reviewed with patient and/or family. Voiced understanding. Take medications as directed. Follow-up with your DrAlayna in a few days for recheck. Return for worse pain, fever, vomiting, weakness, breathing problems or other concerns as needed. You may take Tylenol 1000 mg every 6 hours as needed for pain as well as the prescribed pain medicines. Scripts Tramadol HCl (Tramadol HCl) 50 Mg Tablet 50 MG PO Q6H Y for PAIN, #20 TAB 0 Refills Prov: RUBY FOX MD 08/23/17 YASHIRA CABRERA MEDICAL STUDENT Aug 23, 2017 22:00 RUBY FOX MD Aug 23, 2017 23:16
[2017-08-23] MEDS ORDERED: RX-ONDANSETRON 4 MG ODT (ZOFRAN) PPK #4 PO STA (23:09)
[2017-08-23] MEDS ORDERED: RX-TRAMADOL 50 MG (ULTRAM) TAB PPK#4 PO STA (23:09)
[2017-08-23] MEDS ORDERED: TRAM50TA2 PO (23:16)
[2017-08-23 23:22] VITALS: BP 142/66
--- NOTE | 2017-08-24 06:59 | Diagnostic Imaging Report ---
INDICATION: Status post recent fall in front yard now with hip pain. TECHNIQUE: AP pelvis along with 2 views left hip 10:45 PM CORRELATION STUDY: 09/05/2014 FINDINGS: The pelvis demonstrates no evidence for acute fracture. The pectineal lines and obturator rings are maintained. Likely some fusion and sclerosis about the SI joint. Superior pubic symphysis unremarkable. Prominent enthesopathy of the iliac crest. Advanced degenerative change visualized lower lumbar spine. Right hip with mild joint space narrowing but otherwise maintained. Imaging left hip demonstrates femoral head acetabular relationship preserved. Mild enthesopathy present. No acute bony abnormality with bony tubercular pattern intact. IMPRESSION: Negative for acute fracture about the pelvis and/or left hip. Dictated by: Dictated on workstation # [id number]
--- NOTE | 2017-08-24 07:00 | Diagnostic Imaging Report ---
INDICATION: Post recent fall in front yard. Now with knee pain. TECHNIQUE: 3 views of the left knee CORRELATION STUDY: 09/05/2014 FINDINGS: Mild joint space narrowing both medially and laterally. Mild marginal osteophyte formation. There is a rather prominent spurlike formation ununited along the posterior lateral aspect adjacent to the femur appears unchanged. Areas of sclerosis proximal tibia may reflect prior areas of bone infarct. Rather prominent spurlike formation about the fibula head. Vascular calcification within the soft tissues. IMPRESSION: 1. Chronic change of the left knee demonstrates no acute abnormality. Dictated by: Dictated on workstation # [id number]
--- NOTE | 2017-08-24 07:07 | Diagnostic Imaging Report ---
PROCEDURE: CT head without contrast. TECHNIQUE: Multiple contiguous axial images were obtained through the brain without the use of intravenous contrast. INDICATION: Status post recent fall in front yard. Pain. Correlation study: 05/23/2011 FINDINGS: Generalized atrophic changes with prominence of the ventricles and sulci. No abnormal areas of decreased attenuation to suggest edema. Minimal basal ganglia calcifications. No intracranial hemorrhage. No hyperdense MCA sign. Bony calvarium intact with the visualized paranasal sinuses and mastoid air cells clear. IMPRESSION: Negative for acute traumatic intracranial abnormality. Dictated by: Dictated on workstation # [id number]
== END 2017-08-23 23:20 | disposition home or self-care (01) ==
LOC: EDUNIT# 20:52 → ER 20:53
DX: S86.912A Strain of unspecified muscle(s) and tendon(s) at lower leg level, left leg, initial encounter (principal); S70.02XA Contusion of left hip, initial encounter; M54.5 Low back pain; E11.9 Type 2 diabetes mellitus without complications; K21.9 Gastro-esophageal reflux disease without esophagitis; E78.00 Pure hypercholesterolemia, unspecified; I10 Essential (primary) hypertension; Z98.51 Tubal ligation status; Z85.6 Personal history of leukemia; Z86.73 Personal history of transient ischemic attack (TIA), and cerebral infarction without residual deficits; Z79.4 Long term (current) use of insulin; Z79.82 Long term (current) use of aspirin
CPT/HCPCS: 70450; 73562; 96372; 99284

== ENCOUNTER → 2017-10-02 | Outpatient (RCR) | payer MEDICARE ==
[2017-07-04 08:58] LABS: BASOPHILS # (AUTO) 0.1 10^3/uL (0.0-0.1); BASOPHILS % (AUTO) 0 % (0-10); EOSINOPHILS # (AUTO) 0.3 10^3/uL (0.0-0.3); EOSINOPHILS % (AUTO) 2 % (0-10); HEMATOCRIT 39 % (35-52); HEMOGLOBIN 12.6 G/DL (11.5-16.0); LYMPHOCYTES # (AUTO) 12.4 X 10^3 (1.0-4.0); LYMPHOCYTES % (AUTO) 80 % (12-44); MEAN CORPUSCULAR HEMOGLOBIN 30 PG (25-34); MEAN CORPUSCULAR HGB CONC 32 G/DL (32-36); MEAN CORPUSCULAR VOLUME 94 FL (80-99); MEAN PLATELET VOLUME 12.4 FL (7.4-10.4); MONOCYTES # (AUTO) 0.5 X 10^3 (0.0-1.0); MONOCYTES % (AUTO) 3 % (0-12); NEUTROPHILS # (AUTO) 2.4 X 10^3 (1.8-7.8); NEUTROPHILS % (AUTO) 15 % (42-75); PLATELET COUNT 179 10^3/uL (130-400); RED CELL DISTRIBUTION WIDTH 15.5 % (10.0-14.5); WHITE BLOOD COUNT 15.5 10^3/uL (4.3-11.0)
[2017-07-04 09:19] LABS: ALANINE AMINOTRANSFERASE 30 U/L (0-55); ALBUMIN 4.1 GM/DL (3.2-4.5); ALKALINE PHOSPHATASE 79 U/L (40-136); BILIRUBIN,TOTAL 0.5 MG/DL (0.1-1.0); BUN/CREATININE RATIO 23; CALCIUM 9.5 MG/DL (8.5-10.1); CARBON DIOXIDE 26 MMOL/L (21-32); CHLORIDE 109 MMOL/L (98-107); CREATININE SERUM 0.84 MG/DL (0.60-1.30); GFR ESTIMATED > 60; GLUCOSE 101 MG/DL (70-105); POTASSIUM 4.8 MMOL/L (3.6-5.0); SODIUM 144 MMOL/L (135-145)
[~2017-10-02] MED LIST changes: +ESCI10TA55; +GLIM2TAB; +TRAM50TA2 PO
[2017-10-02 14:34] LABS: BASOPHILS # (AUTO) 0.1 10^3/uL (0.0-0.1); BASOPHILS % (AUTO) 0 % (0-10); EOSINOPHILS # (AUTO) 0.2 10^3/uL (0.0-0.3); EOSINOPHILS % (AUTO) 1 % (0-10); HEMATOCRIT 39 % (35-52); HEMOGLOBIN 12.9 G/DL (11.5-16.0); LYMPHOCYTES # (AUTO) 13.8 X 10^3 (1.0-4.0); LYMPHOCYTES % (AUTO) 81 % (12-44); MEAN CORPUSCULAR HEMOGLOBIN 31 PG (25-34); MEAN CORPUSCULAR HGB CONC 33 G/DL (32-36); MEAN CORPUSCULAR VOLUME 93 FL (80-99); MEAN PLATELET VOLUME 11.7 FL (7.4-10.4); MONOCYTES # (AUTO) 0.5 X 10^3 (0.0-1.0); MONOCYTES % (AUTO) 3 % (0-12); NEUTROPHILS # (AUTO) 2.5 X 10^3 (1.8-7.8); NEUTROPHILS % (AUTO) 14 % (42-75); PLATELET COUNT 198 10^3/uL (130-400); RED BLOOD COUNT 4.21 10^6/uL (4.35-5.85); RED CELL DISTRIBUTION WIDTH 14.5 % (10.0-14.5)
[2017-10-02 14:54] LABS: ALANINE AMINOTRANSFERASE 28 U/L (0-55); ALBUMIN 4.3 GM/DL (3.2-4.5); ALKALINE PHOSPHATASE 93 U/L (40-136); BILIRUBIN,TOTAL 0.4 MG/DL (0.1-1.0); BUN/CREATININE RATIO 20; CALCIUM 9.5 MG/DL (8.5-10.1); CARBON DIOXIDE 27 MMOL/L (21-32); CHLORIDE 107 MMOL/L (98-107); CREATININE SERUM 0.79 MG/DL (0.60-1.30); GFR ESTIMATED > 60; GLUCOSE 128 MG/DL (70-105); POTASSIUM 4.2 MMOL/L (3.6-5.0); SODIUM 141 MMOL/L (135-145); TOTAL PROTEIN 6.9 GM/DL (6.4-8.2)
== END | disposition home or self-care (01) ==
LOC: ONC 07-04 08:43
PROVIDERS: ATTEND Internal Medicine Hematology & Oncology
DX: C91.10 Chronic lymphocytic leukemia of B-cell type not having achieved remission (principal); E11.9 Type 2 diabetes mellitus without complications; I10 Essential (primary) hypertension; Z79.4 Long term (current) use of insulin; Z79.899 Other long term (current) drug therapy
CPT/HCPCS: 36415; 80053; 83615; 85025; 99213

== ENCOUNTER → 2018-03-04 | Outpatient (CLI) | payer MEDICARE ==
--- NOTE | 2018-03-04 11:11 | Diagnostic Imaging Report ---
INDICATION: Right axillary lump. COMPARISON: 06/21/2016 and 06/14/2015. TECHNIQUE: 2D and 3D bilateral diagnostic mammography was performed with CAD. FINDINGS: Scattered fibroglandular densities are identified bilaterally. The parenchymal pattern is stable. No mass or malignant appearing microcalcifications are seen. Fatty lymph nodes in the right axilla are seen. No other abnormality is detected. IMPRESSION: No mammographic features suspicious for malignancy. There are fat containing lymph nodes in the right axilla. Even so, sonographic interrogation of the area of palpable abnormality in the right axilla is recommended and will be performed today. ACR BI-RADS Category 0: Incomplete. (Needs additional imaging evaluation). Result letter will be mailed to the patient. Note: At least 10% of breast cancer is not imaged by mammography. Dictated by: Dictated on workstation # [id number]
--- NOTE | 2018-03-04 11:24 | Diagnostic Imaging Report ---
Indication: Right axillary lump, increasing in size. Sonographic interrogation of the area of lump in the right axilla was performed. There is a somewhat ill-defined hypoechoic mass just below the skin surface measuring 1.4 x 0.9 x 1.2 cm. This does show internal vascularity. This does not appear to represent a lymph node. No other masses are seen. Impression: Ill-defined, hypoechoic solid-appearing mass in the right axilla an area of palpable abnormality with angular margins. This is just below the skin surface. Tissue sampling is recommended. This would be most easily sampled with excisional biopsy as opposed to ultrasound. Surgical consult is recommended. BI-RADS category 4 ACR BI-RADS Category 4: Suspicious abnormality. Dictated by: Dictated on workstation # [id number]
== END ==
LOC: RAD 10:21
PROVIDERS: ATTEND Nurse Practitioner Adult Health
DX: C91.10 Chronic lymphocytic leukemia of B-cell type not having achieved remission (principal); R22.31 Localized swelling, mass and lump, right upper limb; R92.8 Other abnormal and inconclusive findings on diagnostic imaging of breast
CPT/HCPCS: 77066

== ENCOUNTER → 2018-04-04 | Outpatient (CLI) | payer MEDICARE ==
[~2018-04-04] MED LIST changes: +ACHD5005 PO; +ASPI-999 PO; +CLOP75TA28 PO; +DAPA10TA PO; -GLIM2TAB; +GLIM2TAB PO; +HYDR-4226 PO; +INSU100I29 SQ
[2018-04-04 12:22] LABS: BUN/CREATININE RATIO 22; GFR ESTIMATED > 60
== END ==
LOC: LAB 07:45
PROVIDERS: ATTEND Surgery
DX: C79.89 Secondary malignant neoplasm of other specified sites (principal)
CPT/HCPCS: 36415; 82565; 84520

== ENCOUNTER → 2018-04-05 | Outpatient (CLI) | payer MEDICARE | LOC: RAD 04-04 11:54 | PROVIDERS: ATTEND Surgery | DX: C76.1 Malignant neoplasm of thorax (principal); C79.9 Secondary malignant neoplasm of unspecified site; Z53.09 Procedure and treatment not carried out because of other contraindication | CPT/HCPCS: 36415; 82565; 84520 ==

== ENCOUNTER 2018-04-09 14:19 | Emergency (ER) | payer MEDICARE ==
[~2018-04-09] VITALS: Ht 160 cm; Wt 88.5 kg
--- OUTSIDE RECORDS SUMMARY | 2018-04-09 14:26 | XMS REPORT ---
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.4 Active 363157528 Problem Essential hypertension I10 Active 15812520 Problem Type 2 diabetes mellitus with diabetic neuropathy E11.40 Active 21150027 Problem Other obesity due to excess calories E66.09 Active 019230314 Problem Chronic idiopathic constipation K59.04 Active 62676656 Problem 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 Active 14528283 Problem Mixed hyperlipidemia E78.2 Active 274879018 Problem Osteoarthritis of right knee M17.9 Active 263594957 Problem History of renal failure Z87.448 Active 012126480 ALLERGIES Substance Reaction Event Type Date Status Milk of Magnesia Unknown Drug Allergy Jan, Active Maalox Unknown Drug Allergy Jan, Active ENCOUNTERS Encounter Location Date Diagnosis [facility] [id number] [place] [address] 59847- 0315 Mar, Essential hypertension I10 and Type 2 diabetes mellitus with diabetic neuropathy E11.40 [facility] [address] [id number] [place] [address] 84201- 4304 Mar, [facility] [id number] [place] [address] 54976- 7950 Mar, Essential hypertension I10 [facility] [id number] [place] [address] 23950- 0307 Mar, Type 2 diabetes mellitus with diabetic neuropathy E11.40 [facility] [address] [id number] [place] [address] [id number] Feb, Dental caries K02.9 [place] [address] [place] [address] 28534- 2001 Feb, [place] [id number] [place] [address] 42620- 3795 Feb, Type 2 diabetes mellitus with diabetic neuropathy E11.40 ; Essential hypertension I10 ; Mixed hyperlipidemia E78.2 ; History of CVA ( cerebrovascular accident) Z86.73 ; Other obesity due to excess calories E66.09 and Body mass index (BMI) of 31.0-31.9 in adult Z68.31 [facility] [address] [place] [id number] [place] [address] [id number] Jan, Dental examination Z01.20 [place] [id number] [place] [address] 13887- 6218 Jan, Type 2 diabetes mellitus with diabetic neuropathy E11.40 [facility] [address] [id number] Nov, Dental caries K02.9 [place] [id number] [place] [address] 83612- 5555 Nov, Type 2 diabetes mellitus with diabetic neuropathy E11.40 [place] [id number] [place] [address] 81826- 4526 Nov, Medicare annual wellness visit, initial Z00.00 ; Type 2 diabetes mellitus with diabetic neuropathy E11.40 ; 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.4 ; 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 ; Essential hypertension I10 ; Mixed hyperlipidemia E78.2 ; History of CVA (cerebrovascular accident) Z86.73 ; History of renal failure Z87.448 ; Osteoarthritis of right knee M17.9 and Encounter for immunization Z23 [facility] [id number] [place] [address] [id number] Nov, Dental examination Z01.20 [facility] [id number] [place] [address] 25784- 6159 Oct, Type 2 diabetes mellitus with diabetic neuropathy E11.40 ; assisted current use of insulin Z79.4 ; [facility] C92.11 ; History of renal failure Z87.448 ; Mild single current episode of major depressive disorder F32.0 ; Essential hypertension I10 ; Mixed hyperlipidemia E78.2 and Chronic idiopathic constipation K59.04 [facility] [id number] [place] [address] 19223 -8257 15 Oct, 2017 Type 2 diabetes mellitus with diabetic neuropathy E11.40 ; Dental caries extending into pulp K02.9 ; Nausea and vomiting, intractability of vomiting not specified, unspecified vomiting type R11.2 and Chronic idiopathic constipation K59.04 [facility] [address] 08613- 2947 Oct, Type 2 diabetes mellitus with diabetic neuropathy E11.40 [facility] [address] 74945- 8370 Aug, [place] [address] 87600- 4453 Jul, Type 2 diabetes mellitus with diabetic neuropathy E11.40 [facility] [address] 19594 -0845 Jul, Muscle spasm of back M62.830 [place] [address] 54368- 1755 Jun, Type 2 diabetes mellitus with diabetic neuropathy E11.40 ; 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 C92.11 ; History of renal failure Z87.448 ; Mild single current episode of major depressive disorder F32.0 ; Pain in right knee M25.561 and Encounter for immunization Z23 [place] [address] 32984- 4392 Feb, Bloody discharge from right nipple N64.52 [facility] [address] [address] 8807 Feb, [facility] [address] [address] 1185 Feb, [facility] [address] [address]- 5118 December, Type 2 diabetes mellitus with diabetic neuropathy E11.40 [place] [id number] [address] 3840 December, Type 2 diabetes mellitus with diabetic neuropathy E11.40 ; assisted current use of insulin Z79.4 ; [facility] C92.11 ; History of renal failure Z87.448 ; Mild single current episode of major depressive disorder F32.0 and Pain in right knee M25.561 [place] [address] [place] [address] 15351- 3683 Nov, Type 2 diabetes mellitus with diabetic neuropathy E11.40 ; assisted current use of insulin Z79.4 ; 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 ; History of renal failure Z87.448 ; Mild single current episode of major depressive disorder F32.0 and Pain in right knee M25.561 [place] [id number], [place] [address] 4314 16 Sep, 2016 Osteoarthritis of right knee M17.9 [place] [id number], [place] [address]- 9694 08 Sep, 2016 Type 2 diabetes mellitus with diabetic neuropathy E11.40 ; 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.4 ; 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 ; History of renal failure Z87.448 ; Mild single current episode of major depressive disorder F32.0 and Pain in right knee M25.561 [place] [id number] [address]- 2735 Aug, Type 2 diabetes mellitus with diabetic neuropathy E11.40 [place] [address], [place] [address]- 6605 Jul, Type 2 diabetes mellitus with diabetic neuropathy E11.40 ; assisted current use of insulin Z79.4 ; Chronic myeloid leukemia in [facility] C92.11 ; History of renal failure Z87.448 and Mild single current episode of major depressive disorder F32.0 [facility] [address] [place] [address] 85913- 1523 Jun, [facility] [id number] [place] [address] 15778- 1607 May, Type 2 diabetes mellitus with diabetic neuropathy E11.40 [place] [id number] [place] [address] 16768- 1574 May, Tendonitis M77.9 [place] [id number] [place] [address] 97668- 5095 May, Type 2 diabetes mellitus with diabetic neuropathy E11.40 ; assisted current use of insulin Z79.4 ; Chronic myeloid leukemia in [facility] C92.11 ; History of renal failure Z87.448 and Mild single current episode of major depressive disorder F32.0 [place] [address] [place] [address] 91141- 4771 Apr, Type 2 diabetes mellitus with diabetic neuropathy E11.40 [place] [address], [place] [address]- 7176 Apr, Type 2 diabetes mellitus with diabetic neuropathy E11.40 ; assisted current use of insulin Z79.4 ; Chronic myeloid leukemia in [facility] C92.11 ; History of renal failure Z87.448 ; Mild single current episode of major depressive disorder F32.0 and Right foot pain M79.671 [place] [address] [place] [address] 07402- 3231 Feb, History of renal failure Z87.448 [facility] [address], [place] [address]- 3068 Feb, Type 2 diabetes mellitus with diabetic neuropathy E11.40 ; assisted current use of insulin Z79.4 ; Chronic myeloid leukemia in [facility] C92.11 ; History of renal failure Z87.448 and Mild single current episode of major depressive disorder F32.0 [place] [address] [place] [address] 63353- 1415 Feb, 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 [place] [id number] [place] [address] 17161- 0872 Feb, Type 2 diabetes mellitus with diabetic neuropathy E11.40 ; 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.4 ; Chronic myeloid leukemia in [facility] C92.11 ; Essential hypertension I10 ; Mixed hyperlipidemia E78.2 ; History of CVA (cerebrovascular accident) Z86.73 ; History of renal failure Z87.448 and Mild single current episode of major depressive disorder F32.0 [place] [address] [place] [address] 17473- 4653 Jan, Type 2 diabetes mellitus with diabetic neuropathy E11.40 ; 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.4 ; Chronic myeloid leukemia in [place] [address]64922.11 ; Essential hypertension I10 ; Mixed hyperlipidemia E78.2 ; History of CVA (cerebrovascular accident) Z86.73 and History of renal failure Z87.448 [place] [address] [place] [address] 27021- 2823 Jan, [facility] [address] [place] [address] 87985 -9865 Jan, Cellulitis of hand, left L03.114 [place] [id number] [place] [address] 58827- 2624 Nov, Osteoarthritis of right knee M17.9 [place] [id number] [place] [address] 73484- 8121 Sep, Type 2 diabetes mellitus with diabetic neuropathy E11.40 ; assisted current use of insulin Z79.4 ; Chronic myeloid leukemia in [facility] C92.11 ; Essential hypertension I10 ; Mixed hyperlipidemia E78.2 and History of CVA (cerebrovascular accident) Z86.73 [place] [id number] [place] [address] 74069- 1072 Aug, Osteoarthritis of right knee M17.9 [place] [id number] [place] [address] 91348- 8550 Aug, Pain in right knee M25.561 [place] [address] 26064- 8971 Jul, [place] [address] [id number] [place] [address] 88701- 3279 Jun, [place] [address] 95644- 6613 Jun, Axillary lump, right R22.31 [place] [address] [address] [id number] [place] [address] 50207- 4394 Jun, Type 2 diabetes mellitus with diabetic neuropathy E11.40 ; Encounter for immunization Z23 ; 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.4 ; 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 ; Essential hypertension I10 ; Mixed hyperlipidemia E78.2 ; History of CVA (cerebrovascular accident) Z86.73 and Axillary lump, right R22.31 [place] [id number] [place] [address] 96296- 8771 Mar, Hyperlipidemia 272.4 [place] [id number] [place] [address] 13627- 8987 Mar, Right knee pain 719.46 [place] [id number] [place] [address] 11889- 9834 Mar, Rotator cuff impingement syndrome of left shoulder 726.10 [place] [id number] [place] [address] 69746- 8675 Feb, [place] [id number] [place] [address] 56494- 8012 Feb, Chronic myeloid leukemia, without mention of having achieved remission 205.10 ; Essential hypertension, malignant 401.0 ; Unspecified hereditary and idiopathic peripheral neuropathy 356.9 ; Diabetes mellitus type 2, controlled, with complications 250.90 ; Hyperlipidemia 272.4 and Pain, joint, shoulder, left 719.41 [facility] [address], [place] [address]- 1816 Jan, [facility] [address], [place] [address]- 0241 Nov, [facility] [address] [address]- 7027 Nov, [facility] [address], [place] [address]- 5388 Oct, [facility] [address], [place] [address]- 3410 Oct, [facility] [address], [place] [address]- 8661 Oct, [facility] [address], [place] [address]- 9794 Oct, [facility] [address], [place] [address]- 3335 Oct, [facility] [address], [place] [address]- 9998 Oct, [facility] [address], [place] [address]- 2788 Sep, [facility] [address], [place] [address]- 2237 Sep, [facility] [address], [place] [address]- 1856 Aug, [facility] [address], [place] [address]- 3836 Aug, [facility] [id number], [place] [address]- 2346 Jul, [facility] [id number] [place] [address]- 8169 Jul, [facility] [address] [id number] [place] [address]- 3678 Jul, [facility] [place] [facility] [address] [id number] [place] 3246 Jul, [facility] [address] [id number] [place] [address]- 1903 Jul, [facility] [place] [facility] [address] [id number] [place] 1956 Jul, [facility] [place] [facility] [address] [id number] [place] [address]- 0176 Jul, [facility] [place] [facility] [address] [id number] [place] 6547 Jul, [facility] [place] [facility] [address] [id number] [place] [address]- 2812 Jul, [facility] [place] [facility] [address] [id number] [place] [address]- 7497 May, [facility] [place] [facility] [address] [id number] [place] [address]- 1766 May, [facility] [place] [facility] [address] [id number] [place] [address]- 5278 Apr, [facility] [place] [facility] [address] [id number] [place] [address] 2544 Apr, [facility] [place] [facility] [address] [id number] [place] [address]- 8698 Apr, [facility] [place] [facility] [address] [id number] [place] [address]- 8426 Apr, [facility] [place] [facility] [address] [id number] [place] [address]- 3054 Feb, [facility] [place] [facility] [address] [id number] [place] [address]- 3437 Feb, [facility] [place] [facility] [address] [id number] [place] [address]- 9151 Feb, [facility] [place] [facility] [address] [id number] [place] [address]- 6518 Feb, [facility] [place] [facility] [address] [id number] [place] [address]- 5890 Jan, [facility] [place] [facility] [address] [id number] [place] [address]- 2558 Jan, [facility] [place] [facility] [address] [id number] [place] [address]- 6608 Jan, [facility] [place] [facility] [address] [id number] [place] [address]- 1062 Jan, [facility] [place] [facility] [address] [id number] [place] [address]- 2573 Jan, [facility] [place] [facility] [address] [id number] [place] [address]- 2139 Jan, [facility] [place] [facility] [address] [id number] [place] [address]- 3577 December, [facility] [place] [facility] [address] [id number] [place] [address]- 6635 December, [facility] [place] [facility] [address] [id number] [place] [address]- 7403 December, [facility] [place] [facility] [address] [id number] [place] [address]- 2734 December, [facility] [place] [facility] [address] [id number] [place] [address]- 9044 Nov, [facility] [place] [facility] [address] [id number] [place] [address]- 7137 Nov, [facility] [place] [facility] [address] [id number] [place] [address]- 6505 Nov, [facility] [place] [facility] [address] [id number], [place] [address]- 5536 Nov, [facility] [address] [id number] [place] [address]- 7840 Oct, [facility] [place] [facility] [address] [id number] [place] [address]- 9040 Oct, [facility] [place] [facility] [address] [id number] [place] [address]- 6539 Oct, [facility] [place] [facility] [address] [id number] [place] [address]- 9128 Oct, [facility] [place] [facility] [address] [id number] [place] [address]- 8242 Oct, [facility] [place] [facility] [address] [id number] [place] [address]- 7651 Oct, [facility] [place] [facility] [address] [id number] [place] [address]- 1412 Sep, [facility] [place] [facility] [address] [id number] [place] [address]- 1092 Sep, [facility] [place] [facility] [address] [id number] [place] [address]- 1942 Sep, [facility] [place] [facility] [address] [facility] [facility] [id number] [place] [address]- 7595 Sep, [facility] [place] [facility] [address] [facility] [facility] [id number] [place] [address]- 3825 Aug, [facility] [place] [facility] [address] [id number] [place] [address]- 0274 Aug, [facility] [place] [facility] [address] [id number] [place] [address]- 5829 Aug, [facility] [place] [facility] [address] [id number] [place] [address]- 8516 Aug, [facility] [place] [facility] [address] [id number], [place] [address]- 0778 Aug, [facility] [place] [facility] [address] [id number] [place] [address]- 1657 Aug, [facility] [place] [facility] [address] [id number] [place] [address]- 6425 Jul, [facility] [place] [facility] [address] [id number] [place] [address]- 2254 Jul, [facility] [place] [facility] [address] [id number] [place] [address]- 9031 Jul, [facility] [place] [facility] [address] [id number] [place] [address]- 3504 Jul, [facility] [place] [facility] [address] [id number] [place] [address]- 6268 Jun, [facility] [place] [facility] [address] [id number] [place] [address]- 2295 Jun, [facility] [place] [facility] [address] [id number] [place] [address]- 8163 May, [facility] [place] [facility] [address] [id number] [place] [address]- 8299 Feb, [facility] [place] [facility] [address] [id number] [place] [address]- 9570 Feb, [facility] [place] [facility] [address] [id number] [place] [address]- 9883 Feb, [facility] [place] [facility] [address] [id number] [place] [address]- 3040 Jan, [facility] [place] [facility] [address] [id number] [place] [address]- 5158 Jan, [facility] [place] [facility] [address] [id number] [place] [address]- 8954 Jan, [facility] [place] [facility] [address] [id number] [place] [address]- 8502 December, [facility] [place] [facility] [address] [id number] [place] [address]- 7836 December, [facility] [address] [id number] [place] [address]- 0238 December, [facility] [address] [id number] [place] [address]- 8377 Nov, [facility] [address] [id number] [place] [address]- 6925 17 Nov, 2012 [facility] [address] [id number] [place] [address]- 5982 16 Nov, 2012 [facility] [address] [id number] [place] [address]- 5593 15 Nov, 2012 [facility] [address] [id number] [place] [address]- 7966 Nov, [facility] [address] [id number] [place] [address]- 8320 Nov, [facility] [address] [id number] [place] [address]- 7804 Oct, [facility] [address] [id number] [place] [address]- 8247 Oct, [facility] [address] [id number] [place] [address]- 3397 Oct, [facility] [address] [id number] [place] [address]- 0681 Aug, [facility] [place] [facility] [address] [id number] [place] [address]- 4755 Aug, [facility] [place] [facility] [address] [id number] [place] [address]- 8667 Aug, [facility] [place] [facility] [address] [id number] [place] [address]- 8938 Jul, [facility] [place] [facility] [address] [id number] [place] [address]- 0707 Jul, [facility] [address] [id number] [place] [address]- 4498 Jun, [facility] [address] [id number] [place] [address]- 1478 Jun, [facility] [place] [facility] [address] [id number] [place] [address]- 8772 Jun, [facility] [address] [id number] [place] [address]- 1049 Jun, [facility] [place] [facility] [address] [id number] [place] [address]- 7064 May, [facility] [address] [id number] [place] [address]- 9552 May, [facility] [address] [id number] [place] [address]- 7789 Apr, [facility] [place] [facility] [address] [facility] [facility] [id number] [place] [address]- 5373 Apr, [facility] [address] [id number] [place] [address] Feb, [facility] [place] [facility] [address] [facility] [id number] [place] [address] Feb, [facility] [address] [facility] [id number] [place] [address] Nov, [facility] [place] [facility] [address] [facility] [id number] [place] [address] Oct, [facility] [place] [facility] [address] [id number] [place] [address] Sep, [facility] [place] [facility] [address] [id number] [place] [address] Sep, [facility] [place] [facility] [address] [facility] [id number] [place] [address] Sep, [facility] [place] [facility] [address] [facility] [id number] [place] [address] Aug, [facility] [address] [id number], [place] [address] 17 Aug, 2011 [facility] [address] [id number] [place] [address] Aug, [facility] [address] [facility] [id number], [place] [address] Jul, [facility] [address] [id number], [place] [address] Jul, [facility] [address] [id number] [place] [address] Jun, [facility] [address] [facility] [id number], [place] [address] Jun, [facility] [address] [facility] [id number] [place] [address] Jun, [facility] [address] [facility] [id number], [place] [address] May, [facility] [address] [facility] [id number], [place] [address] May, [facility] [address] [facility] [id number], [place] [address] May, [facility] [address] [facility] [id number], [place] [address] May, [facility] [address] [facility] [id number], [place] [address] May, [facility] [address] [facility] [id number], [place] [address] Feb, [facility] [address] [facility] [id number][place] [address] 13 Nov, 2010 [facility] [address] [facility] [id number], [place] [address] 14 Oct, 2010 IMMUNIZATIONS No Known Immunizations SOCIAL HISTORY Never Assessed REASON FOR VISIT lavon PLAN OF CARE Activity Details Follow Up prn Reason:#10-te (make sure pt is off blood thinners) VITAL SIGNS Height 66 in 2018-01-29 Blood pressure systolic 121 mmHg 2018-01-29 Blood pressure diastolic 66 mmHg 2018-01-29 MEDICATIONS Medication Instructions Dosage Frequency Start Date End Date Duration Status BD Pen Needle Ultrafine 29G X 12.7MM subcutaneously 5 times per day Inject December, Active Metoprolol Succinate ER 25 MG TAKE ONE-HALF TABLET BY MOUTH TWICE DAILY 30 Active Plavix 75 MG Orally Once a day 1 tablet 24h Active Pen [place] 31 gauge 1 20 Active Amoxicillin 500 mg Orally every 8 hrs 1 capsule 8h 07 days Active Pen [place] 31G X 8 MM 1 Active Farxiga 10 mg Orally Once a day 1 tablet 24h Oct, 30 day(s) Active Levemir FlexTouch 100 UNIT/ML Subcutaneous 2 times a day per insulin sliding scale protocol 40 units Active Toprol XL 25 MG Orally Once a day 1 tablet 24h 90 days Active [employer] Contour Monitor w/Device as directed Apr, Active Zofran 8 MG Orally TID PRN as directed Oct, 03 days Active Aspirin 81 MG Orally Once a day 1 tablet 24h Active [employer] Contour Next EZ strips intradermal tid and prn tid and prn Active Lexapro 10 mg Orally Once a day 1 tablet 24h 90 days Active Atorvastatin Calcium 40 MG TAKE ONE TABLET BY MOUTH ONCE DAILY 90 Active Contour Blood Glucose System Test Strips 24h Active NovoLog Flexpen 100 UNIT/ML Subcutaneous TID 20 units 8h Active Glimepiride 2 MG TAKE ONE TABLET BY MOUTH TWICE DAILY 30 Active Lisinopril 40 mg Orally Once a day 1 tablet 24h 90 days Active RESULTS No Results PROCEDURES Procedure Date Ordered Result Body Site LTD ORAL EVALUATION - PROBLEM FOCUS January 29, 2018 INTRAORL-PERIAPICAL 1 FILM [id number] January 29, 2018 INSTRUCTIONS MEDICATIONS ADMINISTERED No Known Medications MEDICAL (GENERAL) HISTORY Type Description Date Medical History hypertension Medical History hyperlipidemia Medical History type II diabetes Medical History Arthritis-knees and hips Medical History stroke-05/2011 Medical History 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
--- OUTSIDE RECORDS SUMMARY | 2018-04-09 14:36 | XMS REPORT | Continuity of Care Document ---
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 APRN Ot R31.9 HEMATURIA, UNSPECIFIED 08/13/2017 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 APRN Ot Z79.4 JACQUARD LOOM CARPET WEAVER (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 08/13/2017 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 APRN Ot Z79.82 JACQUARD LOOM CARPET WEAVER (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 ASPIRIN 08/13/2017 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 APRN Ot Z85.6 PERSONAL HISTORY OF LEUKEMIA 08/13/2017 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 APRN Ot Z86.73 PRSNL HX OF TIA (TIA), AND CEREB INFRC W 08/13/2017 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 APRN Ot Z98.51 TUBAL LIGATION STATUS 08/23/2017 RUBY FOX MD Ot E11.9 TYPE 2 DIABETES MELLITUS WITHOUT COMPLIC 08/23/2017 RUBY FOX MD Ot E78.00 PURE HYPERCHOLESTEROLEMIA, UNSPECIFIED 08/23/2017 RUBY FOX MD Ot I10 ESSENTIAL (PRIMARY) HYPERTENSION 08/23/2017 RUBY FOX MD Ot K21.9 GASTRO-ESOPHAGEAL REFLUX DISEASE WITHOUT 08/23/2017 RUBY FOX MD Ot M25.562 PAIN IN LEFT KNEE 08/23/2017 RUBY FOX MD Ot M54.5 LOW BACK PAIN 08/23/2017 RUBY FOX MD, Ot S70.02XA CONTUSION OF LEFT HIP, INITIAL ENCOUNTER 08/23/2017 RUBY FOX MD, Ot S86.912A STRAIN OF UNSP MUSC/TEND AT LOWER LEG LE 08/23/2017 RUBY FOX MD, Ot Z79.4 JACQUARD LOOM CARPET WEAVER (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 08/23/2017 RUBY FOX MD, Ot Z79.82 JACQUARD LOOM CARPET WEAVER (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 ASPIRIN 08/23/2017 RUBY FOX MD, Ot Z85.6 PERSONAL HISTORY OF LEUKEMIA 08/23/2017 RUBY FOX MD, Ot Z86.73 PRSNL HX OF TIA (TIA), AND CEREB INFRC W 08/23/2017 RUBY FOX MD, Ot Z98.51 TUBAL LIGATION STATUS 08/27/2017 RUBY FOX MD Ot E11.9 TYPE 2 DIABETES MELLITUS WITHOUT COMPLIC 08/27/2017 RUBY FOX MD, Ot E78.00 PURE HYPERCHOLESTEROLEMIA, UNSPECIFIED 08/27/2017 RUBY FOX MD Ot I10 ESSENTIAL (PRIMARY) HYPERTENSION 08/27/2017 RUBY FOX MD Ot K21.9 GASTRO-ESOPHAGEAL REFLUX DISEASE WITHOUT 08/27/2017 RUBY FOX MD Ot M25.562 PAIN IN LEFT KNEE 08/27/2017 RUBY FOX MD Ot M54.5 LOW BACK PAIN 08/27/2017 RUBY FOX MD Ot S70.02XA CONTUSION OF LEFT HIP, INITIAL ENCOUNTER 08/27/2017 RUBY FOX MD, Ot S86.912A STRAIN OF UNSP MUSC/TEND AT LOWER LEG LE 08/27/2017 RUBY FOX MD, Ot Z79.4 DETENTION (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 08/27/2017 RUBY FOX MD, Ot Z79.82 JACQUARD LOOM CARPET WEAVER (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 ASPIRIN 08/27/2017 RUBY FOX MD, Ot Z85.6 PERSONAL HISTORY OF LEUKEMIA 08/27/2017 RUBY FOX MD, Ot Z86.73 PRSNL HX OF TIA (TIA), AND CEREB INFRC W 08/27/2017 RUBY FOX MD, Ot Z98.51 TUBAL LIGATION STATUS 09/25/2017 VIRY MORAN Ot 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 LYMPHOCYTIC LEUK OF B-CELL TYPE 09/25/2017 VIRY MORAN Sofia Ot E11.9 TYPE 2 DIABETES MELLITUS WITHOUT COMPLIC 09/25/2017 VIRY MORAN Sofia Ot I10 ESSENTIAL (PRIMARY) HYPERTENSION 09/25/2017 VIRY MORAN Sofia Ot Z79.4 JACQUARD LOOM CARPET WEAVER (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 09/25/2017 VIRY MORAN Sofia Ot Z79.899 OTHER DETENTION (CURRENT) DRUG THERAPY 10/02/2017 VIRY MORAN Ot 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 LYMPHOCYTIC LEUK OF B-CELL TYPE 10/02/2017 VIRY MORAN N Ot E11.9 TYPE 2 DIABETES MELLITUS WITHOUT COMPLIC 10/02/2017 VIRY MORAN Sofia Ot I10 ESSENTIAL (PRIMARY) HYPERTENSION 10/02/2017 VIRY MORAN Sofia Ot Z79.4 DETENTION (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 10/02/2017 VIRY MORAN Sofia Ot Z79.899 OTHER DETENTION (CURRENT) DRUG THERAPY 10/03/2017 VIRY MORAN Sofia Ot 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 LYMPHOCYTIC LEUK OF B-CELL TYPE 10/03/2017 VIRY MORAN N Ot E11.9 TYPE 2 DIABETES MELLITUS WITHOUT COMPLIC 10/03/2017 VIRY MORAN Sofia Ot I10 ESSENTIAL (PRIMARY) HYPERTENSION 10/03/2017 VIRY MORAN Sofia Ot Z79.4 DETENTION (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 10/03/2017 VIRY MORAN Sofia Ot Z79.899 OTHER DETENTION (CURRENT) DRUG THERAPY 03/04/2018 SASHA DUSTYWILEY Sofia Ot 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, 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 03/04/2018 MAUDE NG Ot 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, 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 03/04/2018 MAUDE NG Ot 250.00 DIAB ALONDRA WO COMPL, TYPE II OR UNSPEC TY 03/04/2018 MAUDE NG Ot 438.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,HEMIPLEGIA AFFECTING 03/04/2018 MAUDE NG Ot 780.79 OTH MALAISE FATIGUE 03/04/2018 MAUDE NG Ot V58.67 LONG-TERM (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 03/04/2018 NG, HILAH S VERIFICATION ENGINEER Ot V58.69 OTH MED,LT,CURRENT USE 03/04/2018 MAUDE NG VERIFICATION ENGINEER Ot 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, 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 03/04/2018 MAUDE NG VERIFICATION ENGINEER Ot V58.69 OTH MED,LT,CURRENT USE 03/04/2018 VIRY MORAN Ot 729.5 PAIN IN LIMB 03/04/2018 MAUDE NG S VERIFICATION ENGINEER Ot 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, 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 03/04/2018 MAUDE NG S VERIFICATION ENGINEER Ot 250.00 DIAB ALONDRA WO COMPL, TYPE II OR UNSPEC TY 03/04/2018 MAUDE NG S VERIFICATION ENGINEER Ot V58.67 LONG-TERM (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 03/04/2018 MAUDE NG VERIFICATION ENGINEER Ot V58.69 OTH MED,LT,CURRENT USE 03/04/2018 MAUDE NG VERIFICATION ENGINEER Ot V76.12 OTH SCREEN MAMMO-MALIGN NEOPLASM OF SILVINA 03/04/2018 MAUDE NG VERIFICATION ENGINEER Ot 793.80 UNSPEC ABNORMAL MAMMOGRAM 03/04/2018 Ot 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, 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 03/04/2018 Ot 250.00 DIAB ALONDRA WO COMPL, TYPE II OR UNSPEC TY 03/04/2018 Ot V58.67 LONG-TERM ( 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 03/04/2018 Ot V58.69 OTH MED,LT, CURRENT USE 03/04/2018 Ot 272.4 HYPERLIPIDEMIA NEC/NOS 03/04/2018 EVERARDO DELLA L VERIFICATION ENGINEER Ot R22.31 LOCALIZED SWELLING, MASS AND LUMP, RIGHT 03/04/2018 MAUDE NG VERIFICATION ENGINEER Ot 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 LYMPHOCYTIC LEUK OF B-CELL TYPE 03/04/2018 MAUDE NG VERIFICATION ENGINEER Ot E11.9 TYPE 2 DIABETES MELLITUS WITHOUT COMPLIC 03/04/2018 MAUDE NG VERIFICATION ENGINEER Ot I10 ESSENTIAL (PRIMARY) HYPERTENSION 03/04/2018 MAUDE NG S VERIFICATION ENGINEER Ot Z79.4 DETENTION (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 03/04/2018 MAUDE NG S VERIFICATION ENGINEER Ot 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 03/04/2018 MAUDE NG VERIFICATION ENGINEER Ot 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 LYMPHOCYTIC LEUK OF B-CELL TYPE 03/04/2018 NGMAUDE VERIFICATION ENGINEER Ot E11.9 TYPE 2 DIABETES MELLITUS WITHOUT COMPLIC 03/04/2018 MAUDE NG VERIFICATION ENGINEER Ot I10 ESSENTIAL (PRIMARY) HYPERTENSION 03/04/2018 MAUDE NG VERIFICATION ENGINEER Ot Z79.4 JACQUARD LOOM CARPET WEAVER (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 03/04/2018 MAUDE NG VERIFICATION ENGINEER Ot 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 03/04/2018 MAUDE NG VERIFICATION ENGINEER Ot R92.8 OTH ABN AND INCONCLUSIVE FINDINGS ON DX 03/04/2018 VIRY MORAN Sofia Ot 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 LYMPHOCYTIC LEUK OF B-CELL TYPE 03/04/2018 SASHA, VIRY N Ot E11.9 TYPE 2 DIABETES MELLITUS WITHOUT COMPLIC 03/04/2018 VIRY MORAN N Ot I10 ESSENTIAL (PRIMARY) HYPERTENSION 03/04/2018 SASHA, VIRY N Ot Z79.4 DETENTION (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 03/04/2018 VIRY MORAN N Ot Z79.899 OTHER DETENTION (CURRENT) DRUG THERAPY 03/04/2018 ANTONINO WALLER APRN Ot N64.52 NIPPLE DISCHARGE 03/04/2018 VIRY MORAN Sofia Ot 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 LYMPHOCYTIC LEUK OF B-CELL TYPE 03/04/2018 VIRY MORAN N Ot E11.9 TYPE 2 DIABETES MELLITUS WITHOUT COMPLIC 03/04/2018 VIRY MORAN N Ot I10 ESSENTIAL (PRIMARY) HYPERTENSION 03/04/2018 VIRY MORAN N Ot Z79.4 DETENTION (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 03/04/2018 VIRY MORAN N Ot 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 03/04/2018 MAUDE NG VERIFICATION ENGINEER Ot Z12.31 ENCNTR SCREEN MAMMOGRAM FOR MALIGNANT NE 03/05/2018 MAUDE NG VERIFICATION ENGINEER Ot 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 LYMPHOCYTIC LEUK OF B-CELL TYPE 03/05/2018 MAUDE NG VERIFICATION ENGINEER Ot R22.31 LOCALIZED SWELLING, MASS AND LUMP, RIGHT 03/05/2018 MAUDE NGP Ot R92.8 OTH ABN AND INCONCLUSIVE FINDINGS ON DX 03/26/2018 MAUDE NG VISHAL Ot 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 LYMPHOCYTIC LEUK OF B-CELL TYPE 03/26/2018 MAUDE NG VISHAL Ot R22.31 LOCALIZED SWELLING, MASS AND LUMP, RIGHT 03/26/2018 MAUDE NG VISHAL Ot R92.8 OTH ABN AND INCONCLUSIVE FINDINGS ON DX Procedures Code Description [place] [address] ROUTINE VENIPUNCTURE 06/26/2012 85636 XRAY FOOT RIGHT COMP MIN 3 VIEWS 06/26/2012 29240 A1C (IN-HOUSE) 06/26/2012 22436 MICRO ALBUMIN-IN HOUSE 06/26/2012 03594 UA W/ CULTURE IF INDICATED 06/26/2012 92870 BMP 06/26/2012 5127046 GFR CALC (RESULT ONLY) 06/26/2012 53478 LIPID PANEL 07/03/2012 73305 VITAMIN D 25-HYDROXY (D2,D3 , TOTAL) 07/04/2012 36570 TSH 07/04/2012 93776 ROUTINE VENIPUNCTURE 07/04/2012 04201 BARIUM SWALLOW XRAY MODIFIED 07/04/2012 Physical Speech Therapy, [facility] 08/22/2012 41976 ROUTINE VENIPUNCTURE 10/16/2012 17351 MICRO ALBUMIN-IN HOUSE 10/16/2012 55161 A1C (IN-HOUSE) 10/16/2012 63969 CMP 10/16/2012 5205071 GFR CALC (RESULT ONLY) 10/16/2012 15221 CBC 10/16/2012 88615 ROUTINE VENIPUNCTURE 11/13/2012 19151 CBC 11/13/2012 87957 PERIPHERIAL BLOOD SMEAR 11/19/2012 2035453 HEMATOLOGY OTHER REPORT 11/20/2012 63768 ROUTINE VENIPUNCTURE 11/28/2012 Yifan O Viry Moran 11/28/2012 66590 PERIPHERAL BLOOD FLOW CYTOMETRY 12/02/2012 63194 ROUTINE VENIPUNCTURE 01/23/2013 51628 A1C (IN-HOUSE) 01/23/2013 82233 MICRO ALBUMIN-IN HOUSE 01/23/2013 27460 BMP 01/23/2013 12074 MAGNESIUM 01/23/2013 1855818 GFR CALC (RESULT ONLY) 01/23/2013 36534 A1C (IN-HOUSE) 05/07/2013 76466 ROUTINE VENIPUNCTURE 09/11/2013 59800 HEMOGLOBIN (IN-HOUSE) 09/11/2013 00462 A1C (IN-HOUSE) 09/11/2013 36928 CMP 09/11/2013 28138 LIPID PANEL 09/11/2013 65904 MAGNESIUM 09/11/2013 0900533 GFR CALC (RESULT ONLY) 09/11/2013 14601 MICROALBUMIN 09/11/2013 38318 ROUTINE VENIPUNCTURE 11/24/2013 08227 BMP 11/24/2013 48542 A1C (IN-HOUSE) 01/07/2014 21697 A1C (IN-HOUSE) 04/08/2014 03748 A1C (IN-HOUSE) 07/08/2014 68097 US BREAST ULTRASOUND, RIGHT 07/22/2014 44397 MAMMOGRAM DX, RIGHT 07/22/2014 Results Test Result Range Comp. Metabolic Panel (14) - 04/19/16 11:16 Glucose, Serum 137 mg/dL 65-99 BUN 14 mg/dL 8-27 Creatinine, Serum 0.68 mg/dL 0.57-1.00 eGFR If NonAfricn Am 92 mL/min/1.73 >59 eGFR If Africn Am 106 mL/min/1.73 >59 BUN/Creatinine Ratio 21 11-26 Sodium, Serum 144 mmol/L 134-144 Potassium, Serum 4.4 mmol/L 3.5-5.2 Chloride, Serum 104 mmol/L 97-108 Carbon Dioxide, Total 24 mmol/L 18-29 Calcium, Serum 9.7 mg/dL 8.7-10.3 Protein, Total, Serum 6.7 g/dL 6.0-8.5 Albumin, Serum 4.5 g/dL 3.6-4.8 Globulin, Total 2.2 g/dL 1.5-4.5 A/G Ratio 2.0 1.1-2.5 Bilirubin, Total 0.4 mg/dL 0.0-1.2 Alkaline Phosphatase, S 80 IU/L 39-117 AST (SGOT) 14 IU/L 0-40 ALT (SGPT) 16 IU/L 0-32 Comp. Metabolic Panel (14) - 05/09/16 10:57 Glucose, Serum 201 mg/dL 65-99 BUN 19 mg/dL 8-27 Creatinine, Serum 0.82 mg/dL 0.57-1.00 eGFR If NonAfricn Am 75 mL/min/1.73 >59 eGFR If Africn Am 87 mL/min/1.73 >59 BUN/Creatinine Ratio 23 11-26 Sodium, Serum 144 mmol/L 134-144 Potassium, Serum 4.6 mmol/L 3.5-5.2 Chloride, Serum 102 mmol/L 97-108 Carbon Dioxide, Total 26 mmol/L 18-29 Calcium, Serum 9.5 mg/dL 8.7-10.3 Protein, Total, Serum 6.7 g/dL 6.0-8.5 Albumin, Serum 4.5 g/dL 3.6-4.8 Globulin, Total 2.2 g/dL 1.5-4.5 A/G Ratio 2.0 1.1-2.5 Bilirubin, Total 0.6 mg/dL 0.0-1.2 Alkaline Phosphatase, S 86 IU/L 39-117 AST (SGOT) 17 IU/L 0-40 ALT (SGPT) 19 IU/L 0-32 Comp. Metabolic Panel (14) - 09/13/16 11:35 Glucose, Serum 184 mg/dL 65-99 BUN 17 mg/dL 8-27 Creatinine, Serum 0.74 mg/dL 0.57-1.00 eGFR If NonAfricn Am 85 mL/min/1.73 >59 eGFR If Africn Am 98 mL/min/1.73 >59 BUN/Creatinine Ratio 23 11-26 Sodium, Serum 142 mmol/L 134-144 Potassium, Serum 4.3 mmol/L 3.5-5.2 Chloride, Serum 100 mmol/L 96-106 Carbon Dioxide, Total 26 mmol/L 18-29 Calcium, Serum 9.6 mg/dL 8.7-10.3 Protein, Total, Serum 6.8 g/dL 6.0-8.5 Albumin, Serum 4.5 g/dL 3.6-4.8 Globulin, Total 2.3 g/dL 1.5-4.5 A/G Ratio 2.0 1.1-2.5 Bilirubin, Total 0.6 mg/dL 0.0-1.2 Alkaline Phosphatase, S 90 IU/L 39-117 AST (SGOT) 20 IU/L 0-40 ALT (SGPT) 24 IU/L 0-32 Microalb/Creat Ratio, Rand Ur - 09/13/16 11:35 Creatinine, Urine 220.3 mg/dL Not Estab. Microalbumin, Urine 50.1 ug/mL Not Estab. Microalb/Creat Ratio 22.7 mg/g creat 0.0-30.0 Comp. Metabolic Panel (14) - 03/21/17 10:47 Glucose, Serum 142 mg/dL 65-99 BUN 23 mg/dL 8-27 Creatinine, Serum 0.84 mg/dL 0.57-1.00 eGFR If NonAfricn Am 73 mL/min/1.73 >59 eGFR If Africn Am 84 mL/min/1.73 >59 BUN/Creatinine Ratio 27 12-28 Sodium, Serum 142 mmol/L 134-144 Potassium, Serum 4.4 mmol/L 3.5-5.2 Chloride, Serum 101 mmol/L 96-106 Carbon Dioxide, Total 24 mmol/L 18-29 Calcium, Serum 10.1 mg/dL 8.7-10.3 Protein, Total, Serum 7.3 g/dL 6.0-8.5 Albumin, Serum 4.8 g/dL 3.6-4.8 Globulin, Total 2.5 g/dL 1.5-4.5 A/G Ratio 1.9 1.2-2.2 Bilirubin, Total 0.5 mg/dL 0.0-1.2 Alkaline Phosphatase, S 92 IU/L 39-117 AST (SGOT) 16 IU/L 0-40 ALT (SGPT) 20 IU/L 0-32 RENAL PROFILE - 07/04/17 11:50 GLUCOSE 91 mg/dL 65-99 UREA NITROGEN (BUN) 20 mg/dL 7-25 CREATININE 0.89 mg/dL 0.50-0.99 eGFR NON-AFR. SURINAMESE 68 mL/min/1.73m2 > OR=60 eGFR 78 mL/min/1.73m2 > OR=60 BUN/CREATININE RATIO NOT APPLICABLE (calc) 6-22 SODIUM 142 mmol/L 135-146 POTASSIUM 4.6 mmol/L 3.5-5.3 CHLORIDE 108 mmol/L 98-110 CARBON DIOXIDE 27 mmol/L 20-31 CALCIUM 9.7 mg/dL 8.6-10.4 ALBUMIN 4.5 g/dL 3.6-5.1 PHOSPHATE ( PHOSPHORUS) 3.7 mg/dL 2.1-4.3 Complete urinalysis with reflex to culture - [...] microcytes detection by light microscopy SLIGHT NRG Capillary blood glucose measurement by glucometer (mass/volume) - 03/29/18 11: 45 Capillary blood glucose measurement by glucometer (mass/volume) 242 mg/dL 70-110 Capillary blood glucose measurement by glucometer (mass/volume) - 03/29/18 14: 30 Capillary blood glucose measurement by glucometer (mass/volume) 190 mg/dL 70-110 Encounters ACCT No. Visit Date/Time Discharge Status Pt. Type Provider Facility Loc./Unit Complaint [id number] 10/14/2014 10:54:00 10/14/2014 23:59:59 CLS Outpatient PEREZ DO, CATALINO K [id number] 07/08/2014 13:33:00 07/08/2014 23:59:59 CLS Outpatient CATALINO PEREZ DO [id number] 07/08/2014 13:33:00 07/08/2014 23:59:59 CLS Outpatient MADL CNA LTC, DELLA L [id number] 04/08/2014 13:02:00 04/08/2014 23:59:59 CLS Outpatient MADL CNA LTC, DELLA L [id number] 04/08/2014 13:02:00 04/08/2014 23:59:59 CLS Outpatient MADL CNA LTC, DELLA L [id number] 01/07/2014 14:50:00 01/07/2014 23:59:59 CLS Outpatient MADL CNA LTC, DELLA L [id number] 01/07/2014 14:50:00 01/07/2014 23:59:59 CLS Outpatient MADL CNA LTC, DELLA L [id number] 12/23/2013 14:44:00 12/23/2013 23:59:59 CLS Outpatient TIN OCASIO MD [id number] 11/24/2013 09:00:00 11/24/2013 23:59:59 CLS Outpatient CATALINO PEREZ DO [id number] 09/11/2013 09:49:00 09/11/2013 23:59:59 CLS Outpatient DANIEL CRISTINA MD [id number] 05/07/2013 16:19:00 05/07/2013 23:59:59 CLS Outpatient DANIEL CRISTINA MD [id number] 10/16/2012 09:04:00 10/16/2012 23:59:59 CLS Outpatient DANIEL CRISTINA MD [id number] 09/02/2012 18:28:00 09/02/2012 23:59:59 CLS Outpatient WAYNE PEREZ [place] [id number] 07/03/2012 08:01:00 07/03/2012 23:59:59 [place] [id number] 07/03/2012 08:01:00 07/03/2012 23:59:59 CLS Outpatient [id number] 01/23/2013 10:45:00 Document Registration [id number] 12/25/2012 15:29:00 Document Registration [id number] 11/28/2012 13:45:00 Document Registration [id number] 11/19/2012 14:35:00 Document Registration [id number] 11/13/2012 09:51:00 Document Registration [id number] 02/27/2018 14:00:00 02/27/2018 23:59:59 [facility] [id number] 07/04/2017 11:20:00 Document Registration [id number] 03/29/2018 11:00:00 03/29/2018 23:59:59 CLS Preadmit MARY SAHU, CHITO Rawls [facility] SDC RIGHT AXILLA LUMP [id number] 03/04/2018 10:21:00 03/04/2018 23:59:59 CLS Outpatient MAUDE NG VERIFICATION ENGINEER [facility] RAD 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 [id number] 10/03/2017 00:34:00 10/03/2017 23:59:59 CLS Preadmit VIRY MORAN [facility] ONC [id number] 10/02/2017 14:07:00 10/02/2017 00:01:00 DIS Outpatient VIRY MORAN [facility] ONC [id number] 08/23/2017 20:53:00 08/23/2017 23:20:00 DIS Emergency RUBY FOX MD [facility] ER LT RIB/HIP PAIN AFTER FALL [id number] 08/09/2017 10:08:00 08/09/2017 13:06:00 DIS Emergency 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 APRN [facility] ER NAUSEA,HEADACHE,ABD PAIN [id number] 12/20/2016 09:31:00 03/20/2017 00:01:00 DIS Outpatient VIRY MORAN [facility] ONC [id number] 03/01/2017 08:42:00 03/01/2017 23:59:59 CLS Outpatient ANTONINO WALLER CNA LTC [facility] RAD N64.52 BLOODY DISCHARGE FROM R NIPPLE [id number] 11/20/2016 16:08:00 11/20/2016 17:58:00 DIS Emergency ALMA SAHU, EDWIN Carvajal [facility] ER COUGH/BACK PAIN [id number] 07/19/2016 09:09:00 10/17/2016 00:01:00 DIS Outpatient VIRY MORAN [facility] ONC [id number] 06/21/2016 13:05:00 06/21/2016 23:59:59 CLS Outpatient MAUDE NG VERIFICATION ENGINEER [facility] RAD ABNORMAL MAMMO [id number] 03/15/2016 08:55:00 03/15/2016 23:59:59 CLS Outpatient VIRY MORAN [facility] ONC [id number] 01/03/2016 13:34:00 01/03/2016 14:45:00 DIS Emergency JAYSON SAHU, JORGE LUIS [place] [facility] ER LEFT HAND INJURY [id number] 12/22/2015 13:21:00 12/22/2015 23:59:59 CLS Outpatient MAUDE NG VERIFICATION ENGINEER [facility] ONC [id number] 10/25/2015 09:32:00 10/25/2015 12:15:00 DIS Outpatient CHITO HERNANDEZ MD [facility] SDC SCREENING [id number] 10/21/2015 06:12:00 10/21/2015 12:31:00 DIS Outpatient CHITO HERNANDEZ MD [facility] PREOP SCREENING [id number] 09/16/2015 09:27:00 09/16/2015 23:59:59 CLS Outpatient MAUDE NG VERIFICATION ENGINEER [facility] ONC [id number] 06/14/2015 13:45:00 06/14/2015 23:59:59 CLS Outpatient DELLA MCGEE VERIFICATION ENGINEER [facility] RAD RT AXILLARY KNOT [id number] 03/18/2015 12:42:00 05/05/2015 00:01:00 DIS Outpatient VIRY MORAN [facility] ONC [id number] 09/05/2014 10:01:00 09/05/2014 12:42:00 DIS Emergency 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 APRN [facility] ER LEG SWELLING [id number] 07/22/2014 13:16:00 07/22/2014 23:59:59 CLS Outpatient MAUDE NG VERIFICATION ENGINEER [facility] RAD ABNORMAL MAMMO [id number] 07/15/2014 10:28:00 07/15/2014 23:59:59 CLS Outpatient MAUDE NG VERIFICATION ENGINEER [facility] RAD SCREENING [id number] 07/08/2014 09:25:00 07/08/2014 23:59:59 CLS Outpatient MAUDE NG VERIFICATION ENGINEER [facility] ONC [id number] 04/08/2014 09:04:00 07/07/2014 00:01:00 DIS Outpatient VIRY MORAN [facility] ONC [id number] 04/08/2014 10:11:00 04/08/2014 23:59:59 CLS Outpatient VIRY MORAN [facility] RAD LEFT L/E PAIN AND SWELLING [id number] 11/19/2013 10:00:00 11/19/2013 23:59:59 CLS Outpatient MAUDE NG VERIFICATION ENGINEER [facility] ONC [id number] 10/01/2013 12:28:00 10/01/2013 14:10:00 DIS Emergency 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 APRN [facility] ER BACK PAIN [id number] 06/19/2013 09:12:00 09/17/2013 00:01:00 DIS Outpatient [id number] 08/27/2013 12:11:00 08/27/2013 14:51:00 DIS Emergency JAMIE GAMBLE DO [facility] ER [id number] 08/19/2013 13:43:00 08/19/2013 23:59:59 CLS Outpatient [id number] 03/20/2013 12:45:00 03/20/2013 23:59:59 CLS Outpatient MAUDE NG VERIFICATION ENGINEER [facility] ONC [id number] 12/26/2012 13:21:00 03/11/2013 00:01:00 DIS Outpatient VIRY MORAN [facility] ONC [id number] 12/18/2012 07:59:00 12/18/2012 23:59:59 CLS Outpatient VIRY MORAN Sofia [facility] RAD CLL [id number] 03/29/2018 12:00:00 Document Registration [id number] 04/04/2016 10:34:00 Document Registration [id number] 04/04/2016 10:34:00 Document Registration [id number] 10/30/2014 14:04:00 Document Registration [id number] 10/14/2014 09:41:00 Document Registration [id number] 02/15/2014 19:45:00 Document Registration [id number] 07/09/2012 10:29:00 Document Registration [id number] 07/10/2011 12:49:00 Document Registration [id number] 05/26/2011 12:31:00 Document Registration [id number] 05/23/2011 23:45:00 Document Registration [id number] 10/06/2010 13:20:00 Document Registration [id number] 03/22/2017 08:46:00 Document Registration [id number] 03/18/2015 12:43:03 ACT Document Registration [id number] 09/14/2016 12:10:00 Document Registration [id number] 04/20/2016 08:07:00 Document Registration [id number] 05/10/2016 08:06:00 Document Registration
--- NOTE | 2018-04-09 15:05 | ED Integumentary General ---
General Chief Complaint: Skin/Wound Problems Stated Complaint: POST OP SITE OOZING Nursing Triage Note: TO ROOM HAD SURG MAR [address] HERNANDEZ TO REMOVE KNOT UNDER R ARM CONCERN TODAY THAT IT NOT LOOKING RIGHT. Source: patient Exam Limitations: no limitations History of Present Illness Date Seen by Provider: Apr 09, 2018 Time Seen by Provider: 15:00 Initial Comments Patient is a 68-year-old female who presents to the emergency room with complaints of a draining surgical site to the right axilla. She reports that on March 29, 2018 she had a mass removed by Dr. Hernandez. She is concerned today because she had some drainage from the surgical site and that there were bumps on the edges of the surgical site. She denies any fevers or pain. Timing/Duration: yesterday Location: extremities (right axilla) Possible Cause: no cause identified Associated Symptoms: other (drainage) Allergies and Home Medications Allergies Coded Allergies: NKANo Known Allergies (Verified Allergy, Unknown, 10/25/15) Home Medications Aspirin 81 Mg Tab.chew, 81 MG PO DAILY, (Reported) Atorvastatin Calcium 40 Mg Tablet, 40 MG PO HS, (Reported) Clopidogrel Bisulfate 75 Mg Tablet, 75 MG PO DAILY, (Reported) Dapagliflozin Propanediol 10 Mg Tablet, 10 MG PO DAILY, (Reported) Glimepiride 2 Mg Tablet, 2 MG PO BID, (Reported) Hydrocodone Bit/Acetaminophen 1 Tab Tab, 1-2 TAB PO 4-6HR PRN for PAIN Prescribed by: CHITO HERNANDEZ on 03/29/18 1302 Insulin Aspart 300 Units/3 Ml Solution, 30 UNITS SQ TIDAC, (Reported) Insulin Detemir 100 Unit/1 Ml Insuln.pen, 45 UNIT SQ BID, (Reported) Lisinopril 40 Mg Tablet, 40 MG PO DAILY, (Reported) Metoprolol Succinate 25 Mg Tab.er.24h, 12.5 MG PO BID, (Reported) TAKE 1/2 OF 25MG TAB Patient Home Medication List Home Medication List Reviewed: Yes Review of Systems Review of Systems Constitutional: see HPI; No chills, No fever Skin: see HPI, lumps, other (drainage at surgical site) All Other Systems Reviewed Negative Unless Noted: Yes Past Rmifrkc-Nvyzjs-Doxnou Hx Past Med/Social Hx: Reviewed Nursing Past Med/Soc Hx Patient Social History Alcohol Use: Denies Use Recreational Drug Use: No 2nd Hand Smoke Exposure: No Recent Foreign Travel: No Contact w/Someone Who Travel: No Recent Infectious Disease Expo: No Recent Hopitalizations: No Immunizations Up To Date Tetanus Booster (TDap): Less than 5yrs Date of Pneumonia Vaccine: May 06, 2013 Date of Influenza Vaccine: May 06, 2015 Seasonal Allergies Seasonal Allergies: No Past Medical History Surgeries: Yes ( D&C ) 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 Respiratory: No Cardiac: Yes High Cholesterol, Hypertension Neurological: Yes Stroke Reproductive Disorders: No [place] [employer] History: 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 Genitourinary: No Renal Failure Gastrointestinal: Yes Gastroesophageal Reflux Musculoskeletal: Yes Arthritis Endocrine: Yes Diabetes, Insulin dep HEENT: No Cancer: Yes Leukemia Psychosocial: No Integumentary: No Blood Disorders: No Family Medical History Reviewed Nursing Family Hx Physical Exam Vital Signs Vital Signs - First Documented 04/09/18 14:27 Temp 98.5 Pulse 80 Resp 18 B/P (MAP) 133/56 (81) Pulse Ox 96 O2 Delivery Room Air Capillary Refill : Less Than 3 Seconds General Appearance: WD/WN, no apparent distress Cardiovascular: normal peripheral pulses, regular rate, rhythm, no edema, no gallop, no JVD, no murmur Respiratory: chest non-tender, lungs clear, normal breath sounds, no respiratory distress, no accessory muscle use Neurologic/Psychiatric: alert, normal mood/affect, oriented x 3 Skin: normal color, warm/dry Skin Problem Location: upper extremities Skin Problem Character: other Lymphatic: no adenopathy Progress/Results/Core Measures Results/Orders Vital Signs/I&O 04/09/18 04/09/18 14:27 15:09 Temp 98.5 98.5 Pulse 80 80 Resp 18 18 B/P (MAP) 133/56 (81) 133/56 (81) Pulse Ox 96 96 O2 Delivery Room Air Blood Pressure Mean: 81 Progress Progress Note : Time: 15:00 Progress Note I have seen and evaluated the patient. She has an appointment with Dr. Hernandez later this week. Informed her of normal looking surgical site. She agrees with plan of care, plans for discharge. Return precautions were given. Departure Impression Primary Impression: Wound drainage Disposition: 01 HOME, SELF-CARE Condition: Stable/Unchanged Departure-Patient Inst. Decision time for Depature: 15:03 Referrals: [facility] (PCP) Primary Care Physician DELLA MCGEE (Family) Primary Care Physician Patient Instructions: Wound Care (DC) Add. Discharge Instructions: Keep your appointment with Dr. Hernandez on 04/11/18 as previously scheduled. Keep the wound covered with gauze. Return back to the emergency room should you have any redness, purulent foul-smelling drainage, pain, or fevers or any other concerns as needed. All discharge instructions reviewed with patient and/or family. Voiced understanding. MONTSERRAT LÓPEZ Apr 09, 2018 15:05
[2018-04-09 15:09] VITALS: BP 133/56
== END 2018-04-09 15:09 | disposition home or self-care (01) ==
LOC: EDUNIT# 14:19 → ER 14:21
DX: T81.89XA Other complications of procedures, not elsewhere classified, initial encounter (principal); E78.00 Pure hypercholesterolemia, unspecified; I10 Essential (primary) hypertension; K21.9 Gastro-esophageal reflux disease without esophagitis; E11.9 Type 2 diabetes mellitus without complications; Z85.6 Personal history of leukemia; Z87.448 Personal history of other diseases of urinary system; Z86.73 Personal history of transient ischemic attack (TIA), and cerebral infarction without residual deficits; Z98.890 Other specified postprocedural states; Z79.82 Long term (current) use of aspirin; Z79.4 Long term (current) use of insulin; Z98.51 Tubal ligation status
CPT/HCPCS: 99282

== ENCOUNTER 2018-04-10 10:17 | Outpatient (RCR) | payer MEDICARE ==
[2018-03-07 10:54] LABS: BASOPHILS # (AUTO) 0.1 10^3/uL (0.0-0.1); BASOPHILS % (AUTO) 0 % (0-10); EOSINOPHILS # (AUTO) 0.3 10^3/uL (0.0-0.3); EOSINOPHILS % (AUTO) 2 % (0-10); HEMATOCRIT 41 % (35-52); HEMOGLOBIN 13.4 G/DL (11.5-16.0); LYMPHOCYTES # (AUTO) 14.7 X 10^3 (1.0-4.0); LYMPHOCYTES % (AUTO) 79 % (12-44); MEAN CORPUSCULAR HEMOGLOBIN 31 PG (25-34); MEAN CORPUSCULAR HGB CONC 33 G/DL (32-36); MEAN CORPUSCULAR VOLUME 94 FL (80-99); MEAN PLATELET VOLUME 11.8 FL (7.4-10.4); MONOCYTES # (AUTO) 0.4 X 10^3 (0.0-1.0); MONOCYTES % (AUTO) 2 % (0-12); NEUTROPHILS # (AUTO) 3.1 X 10^3 (1.8-7.8); NEUTROPHILS % (AUTO) 17 % (42-75); PLATELET COUNT 199 10^3/uL (130-400); RED CELL DISTRIBUTION WIDTH 14.9 % (10.0-14.5); WHITE BLOOD COUNT 18.6 10^3/uL (4.3-11.0)
[2018-03-07 11:13] LABS: ALANINE AMINOTRANSFERASE 25 U/L (0-55); ALBUMIN 4.4 GM/DL (3.2-4.5); ALKALINE PHOSPHATASE 84 U/L (40-136); BILIRUBIN,TOTAL 0.6 MG/DL (0.1-1.0); BUN/CREATININE RATIO 24; CALCIUM 9.8 MG/DL (8.5-10.1); CARBON DIOXIDE 26 MMOL/L (21-32); CHLORIDE 110 MMOL/L (98-107); CREATININE SERUM 0.85 MG/DL (0.60-1.30); GFR ESTIMATED > 60; GLUCOSE 100 MG/DL (70-105); POTASSIUM 4.2 MMOL/L (3.6-5.0); SODIUM 145 MMOL/L (135-145)
== END 2018-05-07 10:13 | disposition home or self-care (01) ==
LOC: ONC 10:17
PROVIDERS: ATTEND Internal Medicine Hematology & Oncology
DX: C91.10 Chronic lymphocytic leukemia of B-cell type not having achieved remission (principal); E11.9 Type 2 diabetes mellitus without complications; I10 Essential (primary) hypertension; Z79.4 Long term (current) use of insulin; Z79.899 Other long term (current) drug therapy
CPT/HCPCS: 80053; 85025; 99213

== ENCOUNTER → 2018-05-07 | Outpatient (CLI) | payer MEDICARE, OTHER ==
[~2018-05-07] VITALS: Ht 160 cm; Wt 89.4 kg
[~2018-05-07] MED LIST changes: +LIDOCAINE 1% INJ 20 ML 20 ML VIAL INJ ONE
--- NOTE | 2018-05-07 15:30 | Diagnostic Imaging Report ---
INDICATION: Right breast carcinoma. Patient had a recent abnormal outside MRI demonstrating an abnormality at the 12 o'clock location of the right breast. The patient presents for a second look ultrasound. TECHNIQUE: Sonographic interrogation of the upper right breast was performed. There is an area of heterogeneous tissue at the 12 o'clock location 3 cm from the nipple. The tissue is primarily hyperechoic with small central cystic components. This area does measure 1.4 x 1.3 x 1.8 cm. There is some vascularity along the periphery. This likely accounts for the MR abnormality. IMPRESSION: Parenchymal heterogeneity at the 12 o'clock location of the right breast likely accounts for the MRI abnormality. The patient will undergo an ultrasound-guided biopsy of this region today. ACR BI-RADS Category 4: Suspicious abnormality. Dictated by: Dictated on workstation # [id number]
--- NOTE | 2018-05-07 15:32 | Diagnostic Imaging Report ---
INDICATION: Right breast carcinoma. The patient presents for biopsy of the parenchymal heterogeneity at the 12 o'clock location of the right breast seen on ultrasound and MRI. TECHNIQUE: The patient was brought to the procedure room and placed on the table in the supine position. Ultrasound imaging over the right breast was performed to evaluate for an appropriate entry site. The right breast was then prepped and draped in the usual sterile fashion. A small amount of 1% lidocaine was utilized for local anesthesia. A total of three passes was made into the tissue at the 12 o'clock location of the right breast with a 14-gauge Achieve needle. Core biopsy was obtained. A localizer clip was then deployed. Hemostasis was obtained using manual compression. The patient tolerated the procedure well and left the Department in stable condition. IMPRESSION: Successful ultrasound guided biopsy of the area of parenchymal heterogeneity at the 12 o'clock location of the right breast 3 cm from the nipple. The pathologic results are currently pending. Dictated by: Dictated on workstation # [id number]
--- NOTE | 2018-05-07 16:36 | Diagnostic Imaging Report ---
INDICATION: Right breast carcinoma. Patient is status post ultrasound guided right breast biopsy. TECHNIQUE: 2D CC and ML views of the right breast were obtained. FINDINGS: Images demonstrate a clip in the upper portion of the right breast at posterior depth. There is some mild surrounding density present. IMPRESSION: A localizer clip is identified at approximately the 12 o'clock location of the right breast at posterior depth. The pathologic results are pending. Dictated by: Dictated on workstation # [id number]
== END ==
LOC: RAD 13:21
PROVIDERS: ATTEND Surgery
DX: R92.8 Other abnormal and inconclusive findings on diagnostic imaging of breast (principal)
CPT/HCPCS: 19083

== ENCOUNTER → 2018-05-14 | Outpatient (CLI) | payer MEDICARE ==
[~2018-05-14] MED LIST changes: +BARIUM SUSPENSION 2.1% (VANILLA SILQ) 450 ML PO ONE; +IOHEXOL 350 MG/ML 100 ML (OMNIPAQUE 350) VIAL IV ONE; -LIDOCAINE 1% INJ 20 ML 20 ML VIAL INJ ONE; +NS 250 ML (IVPB) BAG IV ONE
[2018-05-14] MEDS: CATHETER FLUSH 10 ML SYR IV PRN ×2 (10:39→11:04)
[2018-05-14 10:44] LABS: BUN/CREATININE RATIO 20; CREATININE SERUM 0.83 MG/DL (0.60-1.30); GFR ESTIMATED > 60
--- NOTE | 2018-05-14 12:45 | Diagnostic Imaging Report ---
PROCEDURE: CT chest, abdomen, and pelvis with contrast. TECHNIQUE: Multiple contiguous axial images were obtained through the chest, abdomen, and pelvis after the administration of intravenous contrast. INDICATION: History of right breast cancer as well as history of leukemia. Exam compared with abdominopelvic CT 08/09/2017, most recent chest for comparison was performed December 2012. FINDINGS: Chest: No lung mass or suspicious pulmonary nodule. No evidence for edema or pneumonia. No effusion or pneumothorax. No evidence for hilar, mediastinal or axillary lymphadenopathy. No acute chest wall pathology. Atherosclerotic aortic and coronary arterial vascular calcifications noted. Abdomen and pelvis: There are gallstones present without features of acute cholecystitis. The liver normal. There is no bile duct dilatation. The pancreas, adrenals, spleen all unremarkable. There is a benign simple right renal cortical cyst. The unobstructed kidneys appearing otherwise normal. There is no mesenteric or retroperitoneal lymphadenopathy. No omental infiltration. There is no ascites. The uterus, adnexa and urinary bladder had an unremarkable appearance. No appendicitis or diverticulitis. No ascites, abscess, hematoma or fluid collection. Osseous structures nonacute. IMPRESSION: 1. Chest: No evidence for metastatic disease or acute pathology. Atherosclerotic vascular disease noted. 2. Abdomen: Cholelithiasis and benign renal cysts. No mass, adenopathy, ascites or acute finding. 3. Pelvis: No evidence for metastatic disease, obstructive features, inflammatory process or acute abnormalities. Dictated by: Dictated on workstation # [id number]
--- NOTE | 2018-05-14 14:29 | Diagnostic Imaging Report ---
INDICATION: Metastatic breast cancer. TECHNIQUE: Whole body planar imaging was performed after administration of 25.7 mCi of technetium 99m MDP. Spot images were obtained as the patient is claustrophobic. FINDINGS: Some increased uptake in the left patellofemoral joint. There is slight increased uptake in the lower thoracic spine just left of midline at the level of the 10th rib. Both of these are thought to be degenerative. There is otherwise normal uptake of isotope throughout the remainder of the visualized axial and appendicular skeleton. There is physiologic uptake within the kidneys bilaterally with excretion in the urinary bladder. IMPRESSION: No evidence of osseous metastatic disease. Presumed degenerative uptake in the lower thoracic spine and left knee. Dictated by: Dictated on workstation # [id number]
== END ==
LOC: CARD 10:05
PROVIDERS: ATTEND Surgery
DX: C50.911 Malignant neoplasm of unspecified site of right female breast (principal)
CPT/HCPCS: 36415; 71260; 74177; 78306; 82565; 84520

== ENCOUNTER → 2018-05-15 | Outpatient (CLI) | payer MEDICARE ==
[~2018-05-15] MED LIST changes: -BARIUM SUSPENSION 2.1% (VANILLA SILQ) 450 ML PO ONE; -IOHEXOL 350 MG/ML 100 ML (OMNIPAQUE 350) VIAL IV ONE; -NS 250 ML (IVPB) BAG IV ONE
--- NOTE | 2018-05-15 16:59 | Diagnostic Imaging Report ---
INDICATION: Cholelithiasis. TECHNIQUE: Multiple grayscale sonographic images were obtained of the right upper quadrant of the abdomen. CORRELATION STUDY: None. FINDINGS: LIVER: Overall very limited in visualization and therefore evaluation. GALLBLADDER: There is presence of multiple shadowing gallstones. Some of these were reported as nonmobile. Borderline gallbladder wall thickening at 3 mm. COMMON BILE DUCT: Partially obscured. Visualized portions upper limits normal at 5 mm. PANCREAS: Largely obscured. RIGHT KIDNEY: Not well visualized. AORTA/IVC: Not well visualized. OTHER: None. IMPRESSION: 1. This is a fairly limited right upper quadrant ultrasound evaluation. There is presence of multiple nonmobile gallstones with borderline gallbladder wall thickening. Common bile duct upper limits of normal. Dictated by: Dictated on workstation # [id number]
== END ==
LOC: RAD 14:56
PROVIDERS: ATTEND Surgery
DX: K80.20 Calculus of gallbladder without cholecystitis without obstruction (principal)
CPT/HCPCS: 76705

== ENCOUNTER 2018-05-27 05:38 | Outpatient (CLI) | payer MEDICARE ==
[~2018-05-27] VITALS: Ht 160 cm; Wt 89.4 kg
== END 2018-05-27 14:02 | disposition home or self-care (01) ==
LOC: PREOP 05:38
PROVIDERS: ATTEND Surgery
DX: Z01.818 Encounter for other preprocedural examination (principal)

== ENCOUNTER 2018-05-29 08:50 | Inpatient (IN) | payer MEDICARE ==
[~2018-05-29] VITALS: Ht 160 cm; Wt 89.4 kg
--- NOTE | 2018-05-29 09:24 | Progress Note-Pre Operative ---
Pre-Operative Progress Note H&P Reviewed The H&P was reviewed, patient examined and no changes noted. Date Seen by Provider: May 20, 2018 Time Seen by Provider: 16:00 Date H&P Reviewed: May 29, 2018 Time H&P Reviewed: 09:24 Pre-Operative Diagnosis: R breast carcinoma. Gallstones CHITO HERNANDEZ MD May 29, 2018 09:24
[2018-05-29] MEDS: LACTATED RINGERS 1,000 ML IV PRN ×3 (09:25→13:54)
[2018-05-29] MEDS ORDERED: ceFAZolin 2 GM IV Premixed 50 ML IV ONE (09:45)
[2018-05-29 09:47] LABS: BASOPHILS # (AUTO) 0.1 10^3/uL (0.0-0.1); BASOPHILS % (AUTO) 0 % (0-10); EOSINOPHILS # (AUTO) 0.2 10^3/uL (0.0-0.3); EOSINOPHILS % (AUTO) 2 % (0-10); HEMATOCRIT 39 % (35-52); HEMOGLOBIN 12.5 G/DL (11.5-16.0); LYMPHOCYTES # (AUTO) 9.7 X 10^3 (1.0-4.0); LYMPHOCYTES % (AUTO) 74 % (12-44); MEAN CORPUSCULAR HEMOGLOBIN 30 PG (25-34); MEAN CORPUSCULAR HGB CONC 32 G/DL (32-36); MEAN CORPUSCULAR VOLUME 94 FL (80-99); MEAN PLATELET VOLUME 11.8 FL (7.4-10.4); MONOCYTES # (AUTO) 0.5 X 10^3 (0.0-1.0); MONOCYTES % (AUTO) 4 % (0-12); NEUTROPHILS # (AUTO) 2.6 X 10^3 (1.8-7.8); NEUTROPHILS % (AUTO) 20 % (42-75); PLATELET COUNT 175 10^3/uL (130-400); RED BLOOD COUNT 4.11 10^6/uL (4.35-5.85); RED CELL DISTRIBUTION WIDTH 14.9 % (10.0-14.5)
[2018-05-29] MEDS ORDERED: SEVOFLURANE (ULTANE) 15 ML INHAL SOLN ONE ×19 (10:03→15:45)
[2018-05-29] MEDS ORDERED: LACTATED RINGERS 1,000 ML IV ONE ×2 (10:03→14:30)
[2018-05-29] MEDS ORDERED: ONDANSETRON 4 MG/2 ML (SDV) Z0FRAN ONE ×2 (10:03→15:34)
[2018-05-29] MEDS ORDERED: fentaNYL INJECTION 100 MCG/2 ML AMP ONE ×3 (10:03→11:45)
[2018-05-29] MEDS ORDERED: proPOfol 200 MG/20 ML (DIPRIVAN) VIAL IV ONE (10:03)
[2018-05-29] MEDS ORDERED: MIDAZOLAM 2 MG/2 ML (VERSED) VIAL ONE (10:03)
[2018-05-29] MEDS ORDERED: LIDOCAINE PF 2% 5 ML (XYLOCAINE) VIAL ONE (10:03)
[2018-05-29] MEDS ORDERED: ROCURONIUM 10 MG/ML 5 ML SYRINGE IV ONE (10:03)
[2018-05-29 10:06] LABS: BAND NEUTROPHILS 1 %; BASOPHILS % (MANUAL) 0 %; ELLIPT/OVALOCYTES SLIGHT; EOSINOPHILS % (MANUAL) 1 %; LYMPHOCYTES % (MANUAL) 76 %; MONOCYTES % (MANUAL) 2 %; NEUTROPHILS % (MANUAL) 20 %; POIKILOCYTOSIS SLIGHT; SMUDGE CELLS SLIGHT
[2018-05-29] MEDS ORDERED: BUP/EPI 0.5% 1:200,000 (SENSORCAINE) 30 ML VIAL ONE (10:13)
--- NOTE | 2018-05-29 14:32 | Operative Report ---
Operative Report Date of Procedure/Surgery May 29, 2018 Surgeon (s) CHITO HERNANDEZ MD Mental Retardation Aide (s): Anastasia Perry ( Med Student III) Post-Operative Diagnosis Same Procedure Performed Robotic-assisted cholecystectomy Modified radical mastectomy right Excision of metastatic skin nodule right axilla Description of Procedure Anesthesia Type: General Estimated blood loss (mL): 200 mL Specimen(s) collected/removed Gallbladder, right breast and axilla. Metastatic skin right axilla Description of the Procedure Indication for the procedure: This lady was found to have a metastatic cutaneous nodule over the right axilla, of breast origin. After an adequate evaluation, it was felt reasonable to perform modified radical mastectomy and excision of the cutaneous nodule with negative margins as the definitive surgical therapy. In addition, she was also found have gallstones. Therefore, concomitant cholecystectomy using minimally invasive technique with robotic assistance was felt to be reasonable. Informed consent was obtained after reviewing the operative details and complications of wound infection, bile leak, necrosis of the skin flaps and cardiorespiratory dysfunction. Description of the procedures: She was placed supine on the operative table and general anesthesia induced. Ancef and 500 mg of Flagyl were administered intravenously as prophylaxis against wound infection. Sequential compression devices were placed around her legs, to minimize the risk of venous thrombosis. Robotic-assisted cholecystectomy: Abdomen was prepared and draped in the usual sterile manner. A supraumbilical incision was made and pneumoperitoneum established using a Veress needle. Intra-abdominal pressure was maintained at 15 mmHg, using carbon dioxide insufflation. A 12 mm trocar was placed and anatomy visualized using the high definition, 3-dimensional laparoscope, associated with da Violette system. Under direct view, I placed an 8 mm trocar over each side of the abdomen, followed by a 5 mm trocar over the left upper quadrant. She was then turned into reverse Trendelenburg position, with the right side tilted up the robotic system was then docked in place. The fundus of the gallbladder was retracted cephalad and first portion of the duodenum was found to be densely adherent to the body of the gallbladder, almost to the point of creating a cholecysto-duodenal fistula. By careful sharp dissection, due to, without any iatrogenic injury. Subsequently , I was able to grasp the infundibulum of the gallbladder and begin dissection. Peritoneum overlying Calot's triangle was incised using the cautery, delineating the cystic duct and artery. Both were divided between locking clips. Cholecystectomy was then completed using the hook cautery. The gallbladder was then placed in an Endo Catch bag and removed via the supraumbilical trocar site. The fascia over this incision was closed using #1 Vicryl, using the Deniz Estrada device, under direct view. Skin incisions were closed using 4-0 Vicryl, in a subcuticular fashion. 0.5 percent Marcaine with epinephrine was infiltrated along the incisions, both preemptively and at the conclusion of the operation. Sterile dressings were then applied. We, then proceeded to perform modified radical mastectomy. Modified radical mastectomy/excision of metastatic skin nodule of the right axilla: Her chest and right axilla were prepared and draped in the usual sterile manner. An elliptical incision was made, incorporating the nipple- areolar complex. Flaps were raised superiorly to the level of the clavicle and inferiorly to the costal margin. Breast tissue was excised off the pectoralis muscle using the Harmonic scalpel. Perforating branches of the internal mammary artery were controlled using ligaclips and Harmonic scalpel. Dissection was then continued into the axilla. I axillary vein was identified and by following its tributaries, the nerve to the latissimus dorsi muscle and the long thoracic nerve were identified and carefully protected. A level II axillary dissection was performed, the tissue being sent en bloc. Lymphatics were controlled using ligaclips and minimal use of Harmonic scalpel. A 3 cm elliptical piece of skin lateral to the mastectomy scar, where the metastatic nodule had been excised was incorporated into the mastectomy specimen , being marked appropriately. 2 Luisito-Cool drains, 15 Japanese each, were left in the axilla and under the flaps respectively. These were secured using 2-0 silk sutures. The flaps were secured using 3-0 Vicryl for the subcutaneous tissue and 4-0 Vicryl for skin, in a subcuticular fashion. Prior she tolerated the procedures well, was extubated in the operating room and taken to the recovery room in a stable condition. Findings of the Procedure See operative report Allergies and Home Medications Allergies Coded Allergies: naproxen (Verified Allergy, Mild, KIDNEY ISSUES, 05/27/18) Home Medications Aspirin 81 Mg Tab.chew, 81 MG PO DAILY, (Reported) Atorvastatin Calcium 40 Mg Tablet, 40 MG PO HS, (Reported) Clopidogrel Bisulfate 75 Mg Tablet, 75 MG PO DAILY, (Reported) Dapagliflozin Propanediol 10 Mg Tablet, 10 MG PO DAILY, (Reported) Glimepiride 2 Mg Tablet, 2 MG PO BID, (Reported) Insulin Aspart 300 Units/3 Ml Solution, 30 UNITS SQ TIDAC, (Reported) Insulin Detemir 100 Unit/1 Ml Insuln.pen, 45 UNIT SQ BID, (Reported) Lisinopril 40 Mg Tablet, 40 MG PO DAILY, (Reported) Metoprolol Succinate 25 Mg Tab.er.24h, 12.5 MG PO BID, (Reported) TAKE 1/2 OF 25MG TAB Patient Home Medication List Home Medication List Reviewed: Yes CHITO HERNANDEZ MD May 29, 2018 14:32
[2018-05-29] MEDS ORDERED: GLYCOPYRROLATE 0.2 MG/ML (ROBINUL) 2 ML VIAL ONE (14:39)
[2018-05-29] MEDS ORDERED: fentaNYL INJECTION 100 MCG/2 ML AMP IV PRN (14:45)
[2018-05-29] MEDS ORDERED: ONDANSETRON 4 MG/2 ML (SDV) Z0FRAN IVP PRN (14:45)
[2018-05-29] MEDS ORDERED: ceFAZolin 1,000 MG/10 ML (ANCEF) VIAL ONE (14:49)
[2018-05-29] MEDS ORDERED: ROPIVACAINE 5MG/ML 30ML VIAL ONE (15:12)
[2018-05-29] MEDS ORDERED: HYDROmorphone 2 MG/ML VIAL (DILAUDID) IV ONE (15:30)
[2018-05-29] MEDS: ONDANSETRON 4 MG/2 ML (SDV) Z0FRAN IVP PRN ×2 (15:35→16:30)
[2018-05-29] MEDS ORDERED: PROMETHAZINE INJ 25 MG/ML (PHENERGAN) AMP ONE (15:52)
[2018-05-29] MEDS: LACTATED RINGERS 1,000 ML IV SCH (16:13)
[2018-05-29] MEDS ORDERED: PROMETHAZINE INJ 25 MG/ML (PHENERGAN) AMP IVP ONE (16:15)
[2018-05-29 16:55] VITALS: BP 194/79
[2018-05-29] MEDS: inSUlin ASPART (NovoLOG) 1 UNIT/0.01 ML (CHARGE PER UNIT) SC SCH ×2 (17:12→20:36)
--- NOTE | 2018-05-29 17:39 | Anesthesia-General Post-Op ---
General Patient Condition Mental Status/LOC: Same as Preop Cardiovascular: Satisfactory Nausea/Vomiting: Absent Respiratory: Satisfactory Pain: Controlled Complications: Absent Post Op Complications Complications None Follow Up Care/Instructions Patient Instructions None needed. Anesthesia/Patient Condition Patient Condition Patient is doing well, no complaints, stable vital signs, no apparent adverse anesthesia problems. No complications reported per nursing. RG MURRAY CRNA May 29, 2018 17:39
[2018-05-29] MEDS ORDERED: FLU QUADRIvalent (5+ YOA) 2018-2019 (AFLURIA) 0.5 ML IM ONE (17:45)
[2018-05-29 20:02] VITALS: BP 180/78
[2018-05-29] MEDS: ATORVASTATIN 40 MG (LIPITOR) TABLET PO SCH (20:25)
[2018-05-29] MEDS: ceFAZolin INJECTION 1,000 MG in NS (IVPB) 50 ML IV SCH (22:21)
[2018-05-30 00:41] VITALS: BP 138/60
[2018-05-30 04:00] VITALS: BP 113/56
[2018-05-30] MEDS: inSUlin ASPART (NovoLOG) 1 UNIT/0.01 ML (CHARGE PER UNIT) SC SCH ×4 (06:32→21:15)
[2018-05-30] MEDS: ceFAZolin INJECTION 1,000 MG in NS (IVPB) 50 ML IV SCH (06:32)
[2018-05-30] MEDS: LACTATED RINGERS 1,000 ML IV SCH (06:32)
[2018-05-30 08:00] VITALS: BP 120/56
[2018-05-30] MEDS: lisINopril 40 MG (PRINIVIL) TABLET PO SCH (08:36)
--- NOTE | 2018-05-30 10:16 | Progress Note-Standard ---
Standard Progress Note Progress Notes/Assess & Plan Date Seen by a Provider: May 30, 2018 Time Seen by a Provider: 10:15 Progress/Assessment & Plan Urinary retention last night. Reasonable pain control. PONV resolved. Final Diagnosis Metastatic carcinoma of right breast. Gallstones CHITO HERNANDEZ MD May 30, 2018 10:16
[2018-05-30] MEDS: HYDROcodone/APAP 5 MG/325 MG (LORTAB) TAB PO PRN ×2 (11:06→16:00)
[2018-05-30 12:00] VITALS: BP 118/55
[2018-05-30] MEDS ORDERED: FLU QUADRIvalent (5+ YOA) 2018-2019 (AFLURIA) 0.5 ML IM ONE (14:27)
[2018-05-30] MEDS: ENOXAPARIN 40 MG/0.4 ML (LOVENOX) SYR SC SCH (14:31)
--- NOTE | 2018-05-30 14:40 | Physical Therapy Evaluation ---
PT Evaluation-General Medical Diagnosis Admission Date May 29, 2018 Medical Diagnosis: Gallstones/metastatic ductal cancer right breast Onset Date: May 29, 2018 Therapy Diagnosis Therapy Diagnosis: generalized weakness Height/Weight Height (Feet): 5 Height (Inches): 3.00 Weight (Pounds): 197 Weight (Ounces): 0.0 Precautions Precautions/Isolations: Fall Prevention, Standard Precautions Weight Bear Status Right Lower Extremity: Right Full Weight Bearing Left Lower Extremity: Left Full Weight Bearing Referral Physician: Gigi Reason for Referral: Evaluation/Treatment Medical History Additional Medical History cancer Current History Excision of metastatic skin nodule right breast Reviewed History: Yes Social History Home: Single Level Current Living Status: Other Family Entry Into Home: Stairs With Railing PT Steps Into Home: 5 Prior/Core FIM Prior Level of Function Functional Bracey Measure 0=Not Assessed/NA 4=Minimal Assistance 1=Total Assistance 5=Supervision or Setup 2=Maximal Assistance 6=Modified Bracey 3=Moderate Assistance 7=Complete IndependenceIRFPAI Quality Coding Scale 6 Independent with activity with or without an assistive device 5 Patient requires set up or clean up by helper. Patient completes activity by themselves 4 Supervision or touching assist (CGA). [place] provide cues , steadying assist 3 The helper provides less than half the effort to complete the activity 2 The helper provides more than half the effort to complete the activity 1 Dependent. The helper does all the effort to complete an activity 7 Patient refused to complete or attempt activity 9 The patient did not perform the activity before the current illness or injury 88 Not attempted due to Medical conditions or safety concerns Bed Mobility: 7 Transfers (B,C,W/C) (FIM): 7 Gait: 7 PT Evaluation-Current Subjective Patient agrees to PT. Pain Numeric Pain Scale: 7 Location: Right Location Body Site: Breast Pain Description: Acute Objective Patient Orientation: Normal For Age Problem Solving: Fair Attachments: Drains ROM/Strength ROM Lower Extremities bilateral LE WFL Strength Lower Extremities 4/5 grossly bilaterally Integumentary/Posture Integumentary refer to nursing notes Bowel Incontinence: No Bladder Incontinence: No Posture WFL Neuromuscular (Tone, Coordination, Reflexes) grossly intact Sensory Vision: Functional Hearing: Functional Sensation Right Lower Extremit: Intact Sensation Left Lower Extremity: Intact Transfers Functional Bracey Measure 0=Not Assessed/NA 4=Minimal Assistance 1=Total Assistance 5=Supervision or Setup 2=Maximal Assistance 6=Modified Bracey 3=Moderate Assistance 7=Complete Bracey Transfers (B, C, W/C) (FIM): 4 Scootin Rollin Supine to/from Sit: 4 Sit to/from Stand: 4 Gait Mode of Locomotion: Walk Anticipated Mode of Locomotion: Walk Gait (FIM): 4 Distance (FIM): 3=150 ft Distance: 150' Gait Level of Assist: 4 Gait Assistive Device: FWW Comments/Gait Description slow, steady Balance Sitting Static: Normal Sitting Dynamic: Normal Standing Static: Normal Standing Dynamic: Normal Assessment/Needs 68 y.o. female, will be seen short term by skilled PT to address functional mobility to improve current LOF. Rehab Potential: Fair PT Correction Goals Taco Maker Goals PT Correction Goals Time Frame: Jun 08, 2018 Transfers (B,C,W/C) (FIM): 6 Gait (FIM): 6 Gait distance (FIM): 3=150 ft Distance: >200' Gait Level of Assist: 6 Gait Assistive Device: None, FWW PT Plan Problem List Problem List: Activity Tolerance Treatment/Plan Treatment Plan: Continue Plan of Care Treatment Plan: Bed Mobility, Education, Functional Activity Steve, Functional Strength, Gait, Safety, Therapeutic Exercise, Transfers Treatment Duration: Jun 08, 2018 Frequency: 6 times per week Estimated Hrs Per Day: .25 hour per day Patient and/or Family Agrees t: Yes Time/GCodes Time In: 1341 Time Out: 1355 Total Billed Treatment Time: 14 Total Billed Treatment 1 visit EVLowC 14 min G Codes Necessary: Yes PT/OT Therapy GCodes Therapy Functional Limitation: Physical Therapy Test(s)/Tool used to determine: Level of Assistance Scale Functional Limitation-Current Charge Code: MOBCUR Modifier: CK Functional Limitation-Goal Charge Code: MOBGOAL Modifier: SAMMIE GARCIA PT May 30, 2018 14:40
[2018-05-30 16:00] VITALS: BP 109/51
[2018-05-30 20:00] VITALS: BP 107/52
[2018-05-30] MEDS: ATORVASTATIN 40 MG (LIPITOR) TABLET PO SCH (21:15)
[2018-05-31] VITALS: BP 110/55
[2018-05-31 04:53] VITALS: BP 113/55
[2018-05-31 05:47] LABS: BASOPHILS # (AUTO) 0.1 10^3/uL (0.0-0.1); BASOPHILS % (AUTO) 0 % (0-10); EOSINOPHILS # (AUTO) 0.1 10^3/uL (0.0-0.3); EOSINOPHILS % (AUTO) 1 % (0-10); HEMATOCRIT 33 % (35-52); HEMOGLOBIN 10.2 G/DL (11.5-16.0); LYMPHOCYTES # (AUTO) 8.1 X 10^3 (1.0-4.0); LYMPHOCYTES % (AUTO) 62 % (12-44); MEAN CORPUSCULAR HEMOGLOBIN 30 PG (25-34); MEAN CORPUSCULAR HGB CONC 31 G/DL (32-36); MEAN CORPUSCULAR VOLUME 97 FL (80-99); MEAN PLATELET VOLUME 12.1 FL (7.4-10.4); MONOCYTES # (AUTO) 0.6 X 10^3 (0.0-1.0); MONOCYTES % (AUTO) 5 % (0-12); NEUTROPHILS # (AUTO) 4.1 X 10^3 (1.8-7.8); NEUTROPHILS % (AUTO) 31 % (42-75); PLATELET COUNT 168 10^3/uL (130-400); RED BLOOD COUNT 3.44 10^6/uL (4.35-5.85); RED CELL DISTRIBUTION WIDTH 15.4 % (10.0-14.5); WHITE BLOOD COUNT 12.9 10^3/uL (4.3-11.0)
[2018-05-31 05:58] LABS: BUN/CREATININE RATIO 20; CALCIUM 8.8 MG/DL (8.5-10.1); CARBON DIOXIDE 21 MMOL/L (21-32); CHLORIDE 106 MMOL/L (98-107); CREATININE SERUM 0.84 MG/DL (0.60-1.30); GFR ESTIMATED > 60; GLUCOSE 224 MG/DL (70-105); POTASSIUM 3.9 MMOL/L (3.6-5.0); SODIUM 138 MMOL/L (135-145)
[2018-05-31] MEDS: inSUlin ASPART (NovoLOG) 1 UNIT/0.01 ML (CHARGE PER UNIT) SC SCH ×4 (06:30→20:52)
[2018-05-31 08:00] VITALS: BP 120/58
[2018-05-31] MEDS: HYDROcodone/APAP 5 MG/325 MG (LORTAB) TAB PO PRN ×2 (08:05→19:49)
[2018-05-31] MEDS: lisINopril 40 MG (PRINIVIL) TABLET PO SCH (08:05)
--- NOTE | 2018-05-31 11:54 | Physical Therapy Daily Note ---
PT Daily Note-Current Subjective Pt was awake in bed when PT arrived. Patient agreed to get up with therapy to walk. Pain Numeric Pain Scale: 5-Moderate Pain Location: Anterior Location Body Site: Abdomen Mental Status Patient Orientation: Confused Attachments: Jefferson Catheter, IV Transfers Functional [place] Measure 0=Not Assessed/NA 4=Minimal Assistance 1=Total Assistance 5=Supervision or Setup 2=Maximal Assistance 6=Modified [place] 3=Moderate Assistance 7=Complete IndependenceIRFPAI Quality Coding Scale 6 Independent with activity with or without an assistive device 5 Patient requires set up or clean up by helper. Patient completes activity by themselves 4 Supervision or touching assist (CGA). [place] provide cues , steadying assist 3 The helper provides less than half the effort to complete the activity 2 The helper provides more than half the effort to complete the activity 1 Dependent. The helper does all the effort to complete an activity 7 Patient refused to complete or attempt activity 9 The patient did not perform the activity before the current illness or injury 88 Not attempted due to Medical conditions or safety concerns Transfers (B, C, W/C) (FIM): 4 Scootin Supine to/from Sit: 4 Sit to/from Stand: 5 Weight Bearing Right Lower Extremity: Right Full Weight Bearing Left Lower Extremity: Left Full Weight Bearing Gait Training Gait (FIM): 2 Distance (FIM): 5=267-02 ft Distance: 125' Gait Level of Assist: 6 Gait Persons Needed: 1 Gait Assistive Device: FWW Assessment Patient was able to ambulate for 125' ft with FWW. Patient is modified independent and does not require a gait belt when ambulating. Patient require minimal assistance when transferring from supine to sitting. She will continue with therapy to increase endurance and strength for functional ambulation. PT instructed patient, family and nursing to ambulate PRN in hallway during day. PT Detention Goals [place] Polisher Operator Goals PT [place] Polisher Operator Goals Time Frame: Jun 08, 2018 Transfers (B,C,W/C) (FIM): 6 Gait (FIM): 6 Gait distance (FIM): 3=150 ft Distance: >200' Gait Level of Assist: 6 Gait Assistive Device: None, FWW PT Plan Problem List Problem List: Activity Tolerance, Functional Strength, Gait Treatment/Plan Treatment Plan: Continue Plan of Care Treatment Plan: Bed Mobility, Education, Functional Activity Steve, Functional Strength, Gait, Safety, Therapeutic Exercise, Transfers Treatment Duration: Jun 08, 2018 Frequency: 6 times per week Estimated Hrs Per Day: .25 hour per day Patient and/or Family Agrees t: Yes Time/GCodes Time In: 1118 Time Out: 1128 Total Billed Treatment Time: 10 Total Billed Treatment 1 visit FA - 10 mins PT/OT Therapy GCodes Therapy Functional Limitation: Physical Therapy Test(s)/Tool used to determine: Level of Assistance Scale Functional Limitation-Current Charge Code: MOBCUR Modifier: CK Functional Limitation-Goal Charge Code: MOBGOCARLOS Modifier: SAMMIE GARCIA PT May 31, 2018 11:54
[2018-05-31 12:00] VITALS: BP 118/60
[2018-05-31] MEDS ORDERED: MAGNESIUM CITRATE 300 ML BTL PO NR (12:45)
--- NOTE | 2018-05-31 12:50 | CONSULTATION REPORT ---
DATE OF SERVICE: 05/31/2018 ATTENDING PHYSICIAN: Dr. Yu. SUMMARY: A 68-year-old white lady recovering from cholecystectomy and postop urinary retention. She has history previously of difficult urination, having to strain, slowing of the stream, incomplete emptying of her bladder. She is on no medication for such. She has no COPD or asthma and does not have any surgery on the urinary system. She is allergic to Naprosyn. IMPRESSION: Urinary retention, neurogenic. PLAN: 1. Urecholine 25 mg q.i.d. and at bedtime and watch for adverse effect. 2. Flomax 0.4 mg daily, probably either Sunday or Sunday, we will remove the catheter, give her a trial of voiding and manage accordingly. Job ID: [id number] DocumentID: [id number] Dictated Date: 05/31/2018 12:36:41 Import Dispatcher Date: 05/31/2018 12:49:26 Dictated By: MARGARET COREA MD
--- NOTE | 2018-05-31 13:06 | Progress Note-Standard ---
Standard Progress Note Progress Notes/Assess & Plan Date Seen by a Provider: May 31, 2018 Time Seen by a Provider: 12:20 Progress/Assessment & Plan Urinary retention last night. Reasonable pain control. PONV resolved. Recurrent urinary retention, Dr. Jones, our urologist consulted. Flaps are satisfactory. Constipated, will use magnesium citrate. Physical therapy in progress. Final Diagnosis Metastatic right breast carcinoma. Gallstones CHITO HERNANDEZ MD May 31, 2018 13:06
[2018-05-31] MEDS: ENOXAPARIN 40 MG/0.4 ML (LOVENOX) SYR SC SCH (13:31)
[2018-05-31 16:32] VITALS: BP 119/59
[2018-05-31] MEDS: BETHANECHOL 25 MG (URECHOLINE) TAB PO SCH ×2 (16:37→19:49)
[2018-05-31] MEDS: TAMSULOSIN 0.4 MG (FLOMAX) CAP PO SCH (17:41)
[2018-05-31 19:12] VITALS: BP 121/60
[2018-05-31] MEDS: ATORVASTATIN 40 MG (LIPITOR) TABLET PO SCH (19:49)
[2018-06-01] VITALS (7 sets, daily range): BP systolic 106–143; BP diastolic 51–65
[2018-06-01] MEDS: HYDROcodone/APAP 5 MG/325 MG (LORTAB) TAB PO PRN ×2 (03:11→19:32)
[2018-06-01] MEDS: BETHANECHOL 25 MG (URECHOLINE) TAB PO SCH ×4 (05:49→19:32)
[2018-06-01] MEDS: inSUlin ASPART (NovoLOG) 1 UNIT/0.01 ML (CHARGE PER UNIT) SC SCH ×4 (06:27→21:36)
[2018-06-01] MEDS: lisINopril 40 MG (PRINIVIL) TABLET PO SCH (08:39)
--- NOTE | 2018-06-01 09:36 | Physical Therapy Daily Note ---
PT Daily Note-Current Subjective Patient agrees to PT. Pain Numeric Pain Scale: 5-Moderate Pain Location: Right Location Body Site: Side Pain Description: Acute Mental Status Patient Orientation: Normal For Age Attachments: Jefferson Catheter Transfers Functional [place] Measure 0=Not Assessed/NA 4=Minimal Assistance 1=Total Assistance 5=Supervision or Setup 2=Maximal Assistance 6=Modified [place] 3=Moderate Assistance 7=Complete IndependenceIRFPAI Quality Coding Scale 6 Independent with activity with or without an assistive device 5 Patient requires set up or clean up by helper. Patient completes activity by themselves 4 Supervision or touching assist (CGA). [place] provide cues , steadying assist 3 The helper provides less than half the effort to complete the activity 2 The helper provides more than half the effort to complete the activity 1 Dependent. The helper does all the effort to complete an activity 7 Patient refused to complete or attempt activity 9 The patient did not perform the activity before the current illness or injury 88 Not attempted due to Medical conditions or safety concerns Transfers (B, C, W/C) (FIM): 6 Scootin Sit to/from Stand: 6 Weight Bearing Right Lower Extremity: Right Full Weight Bearing Left Lower Extremity: Left Full Weight Bearing Gait Training Gait (FIM): 6 Distance (FIM): 3=150 ft Distance: 225' Gait Level of Assist: 6 Gait Assistive Device: FWW slow, shuffle gait sequence/NBOS Assessment Patient progressing with treatment plan. Patient ambulates with family PRN PT Nursing Home Goals Nursing Home Goals PT Nursing Home Goals Time Frame: Jun 08, 2018 Transfers (B,C,W/C) (FIM): 6 Gait (FIM): 6 Gait distance (FIM): 3=150 ft Distance: >200' Gait Level of Assist: 6 Gait Assistive Device: None, FWW PT Plan Treatment/Plan Treatment Plan: Continue Plan of Care Treatment Plan: Bed Mobility, Education, Functional Activity Steve, Functional Strength, Gait, Safety, Therapeutic Exercise, Transfers Treatment Duration: Jun 08, 2018 Frequency: 6 times per week Estimated Hrs Per Day: .25 hour per day Patient and/or Family Agrees t: Yes Time/GCodes Time In: 850 Time Out: 900 Total Billed Treatment Time: 10 Total Billed Treatment 1 visit FA 10 min PT/OT Therapy GCodes Therapy Functional Limitation: Physical Therapy Test(s)/Tool used to determine: Level of Assistance Scale Functional Limitation-Current Charge Code: MOBCUFlorian Modifier: CK Functional Limitation-Goal Charge Code: MOBGOCARLOS Modifier: SAMMIE GARCIA PT Jun 01, 2018 09:36
--- NOTE | 2018-06-01 10:14 | Progress Note-Urology ---
Progress Note-Urology Progress Notes/Assess & Plan Progress/Assessment & Plan TOV TODAY. TOLERATED MEDICINES WELL Final Diagnosis URINE RETENTION MARGARET COREA MD Jun 01, 2018 10:14 am
--- NOTE | 2018-06-01 11:28 | Progress Note (SOAP) ---
Subjective Date Seen by a Provider: Jun 01, 2018 Time Seen by a Provider: 11:00 Subjective/Events-last exam Patient seen with Dr. Powell. Patient reports doing ok. Tolerating diet and ambulating. No N/V. No Fever/Chills. Does reports right mastectomy incisional pain. Drains in place. Having BM. Objective Exam Vital Signs Date Time Temp Pulse Resp B/P (MAP) Pulse Ox O2 Delivery O2 Flow Rate FiO2 06/01/18 08:00 98.1 78 18 117/57 (77) 92 Room Air 06/01/18 04:00 97.8 75 20 107/52 (70) 94 Room Air 06/01/18 00:00 96.9 77 20 106/51 (69) 95 Room Air 05/31/18 19:12 98.4 72 18 121/60 (80) 96 Room Air 05/31/18 16:32 98.7 81 20 119/59 (79) 95 Room Air 05/31/18 12:00 98.4 74 18 118/60 (79) 92 Room Air I & O 06/01/18 06:59 Intake Total 1064 ml Output Total 1990 ml Balance -926 ml Capillary Refill : General Appearance: No Apparent Distress, WD/WN Respiratory: Chest Non Tender, Lungs Clear, Normal Breath Sounds Cardiovascular: Regular Rate, Rhythm, No Edema Gastrointestinal: normal bowel sounds, non tender, soft Extremity: Normal Capillary Refill, Normal Inspection, Normal Range of Motion Neurologic/Psychiatric: Alert, Oriented x3 Skin: Normal Color, Warm/Dry, Other (Right breast mastectomy incision C/D/I. Lap abdominal incisions C/D/I. Right breast drains with SS drainage.) Results Lab Laboratory Tests 05/31/18 16:07: Glucometer 320H 05/31/18 20:34: Glucometer 309H 06/01/18 05:55: Glucometer 237H Microbiology 05/29/18 MRSA Screen - Final, Complete MRSA not isolated Assessment/Plan Assessment/Plan Assess & Plan/Chief Complaint A 68 year old female with Metastatic right breast carcinoma and Gallstones who is S/P laparoscopic cholecystectomy and modified radical right breast mastectomy. Urinary retention per urology. Pain meds. Increase activity. Continue with diet. Clinical Quality Measures DVT/VTE Risk/Contraindication: Risk Factor Score Per Nursin RFS Level Per Nursing on Admit: 4+=Very High WES MCCLOUD BARREL WASHER Jun 01, 2018 11:28
[2018-06-01] MEDS ORDERED: POLYETHYLENE GLYCOL 17 GM (MIRALAX) PACK PO PRN (11:30)
[2018-06-01] MEDS: ENOXAPARIN 40 MG/0.4 ML (LOVENOX) SYR SC SCH (15:05)
[2018-06-01] MEDS: TAMSULOSIN 0.4 MG (FLOMAX) CAP PO SCH (17:47)
[2018-06-01] MEDS: ATORVASTATIN 40 MG (LIPITOR) TABLET PO SCH (19:32)
[2018-06-02] MEDS: BETHANECHOL 25 MG (URECHOLINE) TAB PO SCH ×4 (05:50→21:06)
[2018-06-02] MEDS: inSUlin ASPART (NovoLOG) 1 UNIT/0.01 ML (CHARGE PER UNIT) SC SCH ×4 (06:46→21:07)
[2018-06-02 08:00] VITALS: BP 137/62
[2018-06-02] MEDS ORDERED: GLIMEPIRIDE 4 MG (AMARYL) TAB ONE (09:26)
[2018-06-02] MEDS: lisINopril 40 MG (PRINIVIL) TABLET PO SCH (09:29)
[2018-06-02] MEDS: GLIMEPIRIDE 2 MG (AMARYL) TAB PO SCH ×2 (09:31→16:31)
--- NOTE | 2018-06-02 10:14 | Progress Note-Urology ---
Progress Note-Urology Progress Notes/Assess & Plan Progress/Assessment & Plan STARTED VOIDING. PVR 99-200. TOLERATES MEDICINES WELL. CONTINUE SAME FOR NOW Final Diagnosis URINE RETENTION MARGARET COREA MD Jun 02, 2018 10:14 am
--- NOTE | 2018-06-02 10:29 | Progress Note (SOAP) ---
Subjective Date Seen by a Provider: Jun 02, 2018 Time Seen by a Provider: 10:00 Subjective/Events-last exam Patient seen with Dr. Powell. Patient reports doing well. Tolerating diet and ambulating. Having BMs. No N/V. No Fever/Chills. Does report right axilla incisional pain. Objective Exam Vital Signs Date Time Temp Pulse Resp B/P (MAP) Pulse Ox O2 Delivery O2 Flow Rate FiO2 06/02/18 08:00 97.7 83 20 137/62 (87) 97 Room Air 06/01/18 23:20 98.6 77 18 120/57 (78) 92 Room Air 06/01/18 19:36 99.1 89 18 143/65 (91) 93 Room Air 06/01/18 16:02 98.4 82 16 135/65 (88) 93 Room Air 06/01/18 12:00 97.5 14 16 120/57 (78) 95 Room Air I & O 06/02/18 07:00 Intake Total 1172 ml Output Total 2135 ml Balance -963 ml Capillary Refill : Less Than 3 Seconds General Appearance: No Apparent Distress, WD/WN Neck: Full Range of Motion, Normal Inspection, Non Tender, Supple Respiratory: Chest Non Tender, Lungs Clear, Normal Breath Sounds, No Accessory Muscle Use, No Respiratory Distress Cardiovascular: Regular Rate, Rhythm, No Edema Gastrointestinal: normal bowel sounds, non tender, soft Extremity: Normal Capillary Refill, Normal Inspection, Normal Range of Motion Neurologic/Psychiatric: Alert, Oriented x3 Skin: Normal Color, Warm/Dry, Other (Right breast incision C/D/I. Lap abdominal incisions C/D/I. LANCE drains in place with clear SS drainage.) Results Lab Laboratory Tests 06/01/18 11:19: Glucometer 345H 06/01/18 16:05: Glucometer 269H 06/01/18 21:18: Glucometer 331H 06/02/18 06:42: Glucometer 284H 06/02/18 08:00: Glucometer 268H Microbiology 05/29/18 MRSA Screen - Final, Complete MRSA not isolated Assessment/Plan Assessment/Plan Assess & Plan/Chief Complaint A 68 year old female with Metastatic right breast carcinoma and Gallstones who is S/P laparoscopic cholecystectomy and modified radical right breast mastectomy. Urinary retention per urology. Pain meds. Increase activity. Continue with diet. Clinical Quality Measures DVT/VTE Risk/Contraindication: Risk Factor Score Per Nursin RFS Level Per Nursing on Admit: 4+=Very High WES MCCLOUD APRN Jun 02, 2018 10:28 am
[2018-06-02] MEDS: HYDROcodone/APAP 5 MG/325 MG (LORTAB) TAB PO PRN (10:35)
[2018-06-02] MEDS: inSUlin ASPART (NovoLOG) 1 UNIT/0.01 ML (CHARGE PER UNIT) SQ SCH ×2 (11:53→16:31)
[2018-06-02 16:05] VITALS: BP 131/62
[2018-06-02] MEDS: ENOXAPARIN 40 MG/0.4 ML (LOVENOX) SYR SC SCH (16:31)
[2018-06-02] MEDS: TAMSULOSIN 0.4 MG (FLOMAX) CAP PO SCH (18:28)
[2018-06-02 20:38] VITALS: BP 155/68
[2018-06-02] MEDS: ATORVASTATIN 40 MG (LIPITOR) TABLET PO SCH (21:06)
[2018-06-02] MEDS: inSUlin DETERMIR 1 UNIT/0.01 ML (LEVEMIR) CHARGE PER UNIT SQ SCH (21:07)
[2018-06-03 00:09] VITALS: BP 128/56
[2018-06-03] MEDS: GLIMEPIRIDE 2 MG (AMARYL) TAB PO SCH (05:58)
[2018-06-03] MEDS: inSUlin ASPART (NovoLOG) 1 UNIT/0.01 ML (CHARGE PER UNIT) SC SCH ×2 (05:58→11:26)
[2018-06-03] MEDS: BETHANECHOL 25 MG (URECHOLINE) TAB PO SCH ×2 (05:58→11:26)
[2018-06-03 08:00] VITALS: BP 142/65
[2018-06-03] MEDS: inSUlin ASPART (NovoLOG) 1 UNIT/0.01 ML (CHARGE PER UNIT) SQ SCH ×2 (08:05→11:26)
[2018-06-03] MEDS: inSUlin DETERMIR 1 UNIT/0.01 ML (LEVEMIR) CHARGE PER UNIT SQ SCH (08:06)
[2018-06-03] MEDS: lisINopril 40 MG (PRINIVIL) TABLET PO SCH (08:06)
--- NOTE | 2018-06-03 08:10 | Progress Note-Urology ---
Progress Note-Urology Progress Notes/Assess & Plan Progress/Assessment & Plan CONTINUES WELL ON MEDICINES. TOLERATES THEM WELL. NO NEED FOR STRAIGHT CATH. KEEP SAME Final Diagnosis URINE RETENTION MARGARET COREA MD Jun 03, 2018 8:09 am
--- NOTE | 2018-06-03 09:59 | Consultation-Hospitalist ---
NAVEEN GARCIA DO 06/03/18 0959: HPI History of Present Illness: HPI/Chief Complaint CC: DM OOC HPI: This is a 68yoWF clinic patient of [facility] who is s/p uncomplicated choly and right radical mastectomy who is experiencing hyperglycemia and in need of medical management. Pt was just restarted on her home insulin dose and her sugars are now much improved. Pt reports pain is much improved and hoping to go home. Source: patient, RN/MD Exam Limitations: no limitations Date Seen 06/03/18 Attending Physician Conrad Yu MD PCP [place] Referring Physician Date of Admission Home Medications & Allergies Home Medications Reviewed patient Home Medication Reconciliation performed by pharmacy medication reconciliations biodiesel production technician and/or nursing. Patients Allergies have been reviewed. Allergies Allergies Coded Allergies naproxen (Verified Allergy, Mild, KIDNEY ISSUES, 05/27/18) Past Udtjmqy-Olbpru-Dxqerg Hx Past Med/Social Hx: Reviewed Nursing Past Med/Soc Hx, Reviewed and Corrections made Patient Social History Marrital Status: single Employed/Student: retired Alcohol Use: Denies Use Recreational Drug Use: No Smoking Status: Never a Smoker 2nd Hand Smoke Exposure: No Physical Abuse Screen: No Sexual Abuse: No Recent Foreign Travel: No Contact w/other who traveled: No Recent Hopitalizations: No Recent Infectious Disease Expo: No Immunizations Up To Date Tetanus Booster (TDap): Less than 5yrs Date of Pneumonia Vaccine: May 06, 2013 Date of Influenza Vaccine: May 30, 2018 Seasonal Allergies Seasonal Allergies: No Past Medical History Surgeries: Breast, 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 Cardiac: High Cholesterol, Hypertension Neurological: Stroke : No Reproductive: No Sexually Transmitted Disease: No HIV/AIDS: No 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 Genitourinary: Renal Failure Gastrointestinal: Gastroesophageal Reflux Musculoskeletal: Arthritis Endocrine: Diabetes, Insulin dep Loss of Vision: Denies Hearing Impairment: Denies Cancer: Leukemia, Breast History of Blood Disorders: No Adverse Reaction to Blood [place]: No (N/A) Family History Abdominal aortic aneurysm Alzheimer's disease Arthritis Cardiovascular disease Cataracts Completed stroke Dementia Diabetes mellitus Hypercholesterolemia Hypertension Myocardial infarction Neoplasm Psychosocial problem Thyroid disease Review of Systems Constitutional: see HPI EENTM: no symptoms reported Respiratory: no symptoms reported Cardiovascular: no symptoms reported Gastrointestinal: no symptoms reported Genitourinary: no symptoms reported Musculoskeletal: no symptoms reported Skin: no symptoms reported Psychiatric/Neurological: No Symptoms Reported All Other Systems Reviewed Negative Unless Noted: Yes Physical Exam Physical Exam Vital Signs Vital Signs - First Documented 05/29/18 16:55 Temp 96.5 Pulse 89 Resp 20 B/P (MAP) 194/79 (117) Pulse Ox 100 O2 Delivery Nasal Cannula O2 Flow Rate 2.00 Capillary Refill : Less Than 3 Seconds Height, Weight, BMI Height: 5'3.00" Weight: 197lbs. 0.0oz. 89.779375ux; 34.9 BMI Method:Stated General Appearance: No Apparent Distress, WD/WN, Chronically ill, Obese Eyes: Bilateral Eye Normal Inspection, Bilateral Eye PERRL HEENT: PERRL/EOMI, Normal ENT Inspection, Pharynx Normal Neck: Full Range of Motion, Normal Inspection, Non Tender, Supple, Carotid Bruit Respiratory: Chest Non Tender, Lungs Clear, Normal Breath Sounds, No Accessory Muscle Use, No Respiratory Distress Cardiovascular: Regular Rate, Rhythm, No Edema, No Gallop, No JVD, No Murmur, Normal Peripheral Pulses Gastrointestinal: Normal Bowel Sounds, No Organomegaly, No Pulsatile Mass, Non Tender, Soft Back: Normal Inspection, No CVA Tenderness, No Vertebral Tenderness Extremity: Normal Capillary Refill, Normal Inspection, Normal Range of Motion, Non Tender, No Calf Tenderness, No Pedal Edema Neurologic/Psychiatric: Alert, Oriented x3, No Motor/Sensory Deficits, Normal Mood/Affect Skin: Normal Color, Warm/Dry Lymphatic: No Adenopathy Results Results/Procedures Labs Patient resulted labs reviewed. 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 was admitted following surgery for removal of gallbladder and metastatic ductal carcinoma of the rt. breast. She states that she is currently not in pain and slept well last night. She had breakfast this morning and has been up and walking around. The patient claims no N/V/D and her bowels are moving. She states that she is using her inspirometer regularly. Home Medications & Allergies Home Medications Aspirin 81 mg PO daily Atorvastatin 40 mg PO HS Clopidogrel 75 mg PO daily Dapagliflozin Propanediol 10 mg PO daily Glimepiride 2 mg PO BID Hydrocodone/Acetaminophen 5/325 1 tab PO Q6H PRN Insulin Aspart 30 units SQ TIDAC EA Lisinopril 40 mg PO daily Metoprolol 12.5 mg PO BID Past Chppgfy-Xxkhxv-Vxmxjs Hx Patient Social History Alcohol Use: Denies Use Recreational Drug Use: No Smoking Status: Never a Smoker Immunizations Up To Date Tetanus Booster (TDap): Less than 5yrs Seasonal Allergies Seasonal Allergies: No Past Medical History Surgeries: 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 Cardiac: High Cholesterol, Hypertension Neurological: Stroke 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 Genitourinary: Renal Failure Gastrointestinal: Gastroesophageal Reflux Musculoskeletal: Arthritis Loss of Vision: Denies Hearing Impairment: Denies Cancer: Leukemia, Breast Family History Abdominal aortic aneurysm Alzheimer's disease Arthritis Cardiovascular disease Cataracts Completed stroke Dementia Diabetes mellitus Hypercholesterolemia Hypertension Myocardial infarction Neoplasm Psychosocial problem Thyroid disease Review of Systems Constitutional: no symptoms reported EENTM: no symptoms reported Respiratory: no symptoms reported Cardiovascular: no symptoms reported Gastrointestinal: no symptoms reported Genitourinary: no symptoms reported Physical Exam Physical Exam General Appearance: No Apparent Distress, WD/WN HEENT: PERRL/EOMI Neck: Full Range of Motion, Normal Inspection, Non Tender, Supple Respiratory: Lungs Clear, Normal Breath Sounds, No Accessory Muscle Use, No Respiratory Distress Cardiovascular: Regular Rate, Rhythm, No Edema, No Gallop, No JVD, No Murmur, Normal Peripheral Pulses Extremity: Normal Capillary Refill, Normal Inspection, Normal Range of Motion Neurologic/Psychiatric: Alert, Oriented x3, No Motor/Sensory Deficits, Normal Mood/Affect Assessment/Plan Assessment and Plan Assess & Plan/Chief Complaint Assessment: 1) Ductal carcinoma 2) Gallstones 3) Diabetes mellitus NAVEEN GARCIA DO Jun 03, 2018 09:59 EDWIN STODDARD MED STUDENT Jun 03, 2018 12:38
--- NOTE | 2018-06-03 10:08 | Physical Therapy Daily Note ---
PT Daily Note-Current Subjective Patient was up in room walking back from restroom when PT arrived. Patient agreed to get up and walk for therapy today. Mental Status Patient Orientation: Normal For Age Transfers Functional [place] Measure 0=Not Assessed/NA 4=Minimal Assistance 1=Total Assistance 5=Supervision or Setup 2=Maximal Assistance 6=Modified [place] 3=Moderate Assistance 7=Complete IndependenceIRFPAI Quality Coding Scale 6 Independent with activity with or without an assistive device 5 Patient requires set up or clean up by helper. Patient completes activity by themselves 4 Supervision or touching assist (CGA). [place] provide cues , steadying assist 3 The helper provides less than half the effort to complete the activity 2 The helper provides more than half the effort to complete the activity 1 Dependent. The helper does all the effort to complete an activity 7 Patient refused to complete or attempt activity 9 The patient did not perform the activity before the current illness or injury 88 Not attempted due to Medical conditions or safety concerns Transfers (B, C, W/C) (FIM): 6 Scootin Rollin Sit to/from Stand: 6 Weight Bearing Right Lower Extremity: Right Full Weight Bearing Left Lower Extremity: Left Full Weight Bearing Gait Training Distance (FIM): 3=150 ft Distance: 200' Gait Level of Assist: 6 Gait Persons Needed: 1 Gait Assistive Device: FWW Assessment Patient was able to ambulate for 200ft with a FWW but did show signs of fatigue when returning to room. Patient was advised to continue using walker for safety and help build her endurance and overall strength to improve her ambulation. PT services are no longer required for pt due to her being a modified I and meeting PT goals. Patient is safe to ambulate PRN in hallway with or without family/staff. Patient instructed to do so. PT Barista Goals Barista Goals PT Barista Goals Time Frame: Jun 08, 2018 Transfers (B,C,W/C) (FIM): 6 Gait (FIM): 6 Gait distance (FIM): 3=150 ft Distance: >200' Gait Level of Assist: 6 Gait Assistive Device: None, FWW PT Plan Treatment/Plan Treatment Plan: Discontinue PT, goals met Treatment Plan: Bed Mobility, Education, Functional Activity Steve, Functional Strength, Gait, Safety, Therapeutic Exercise, Transfers Treatment Duration: Jun 08, 2018 Frequency: 6 times per week Estimated Hrs Per Day: .25 hour per day Patient and/or Family Agrees t: Yes Time/GCodes Time In: 952 Time Out: 1000 Total Billed Treatment Time: 8 Total Billed Treatment 1 visit FA - 8 mins PT/OT Therapy GCodes Therapy Functional Limitation: Physical Therapy Test(s)/Tool used to determine: Level of Assistance Scale Functional Limitation-Current Charge Code: MOBCUR Modifier: CK Functional Limitation-Goal Charge Code: MOBGOAL Modifier: SAMMIE GARCIA PT Jun 03, 2018 10:08
[2018-06-03] MEDS ORDERED: ACHD5005 PO (11:33)
--- NOTE | 2018-06-03 11:34 | Discharge Inst-Simple/Standard ---
Discharge Inst-Standard Discharge Medications New, Converted or Re-Newed RX: RX on Chart Patient Instructions/Follow Up Plan of Care/Instructions/FU: please schedule home health to help with drain management. Home physical therapy to be continued. Follow-up in a week Activity as Tolerated: Yes Discharge Diet: ADA CHITO Charlton MD Jun 03, 2018 11:34
[2018-06-03] MEDS ORDERED: BETH25TA PO (13:14)
--- OUTSIDE RECORDS SUMMARY | 2018-06-03 14:14 | XMS REPORT ---
Author Author ANTONINO WALLER Organization [facility] Address [address] [place] [address] Care Team Providers Care Boxcar Weigher Name Role Phone CHRISTINANGELAANTONINO Unavailable PROBLEMS Type Condition ICD9-CM Code CUG12-EQ Code Onset Dates Condition Status SNOMED Code Problem History of CVA (cerebrovascular accident) Z86.73 Active 469876685 Problem jail current use of insulin Z79.4 Active 171000135 Problem Essential hypertension I10 Active 28110323 Problem Type 2 diabetes mellitus with diabetic neuropathy E11.40 Active 95239398 Problem Other obesity due to excess calories E66.09 Active 104875462 Problem Chronic idiopathic constipation K59.04 Active 10980733 Problem 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 Active 04013400 Problem Mixed hyperlipidemia E78.2 Active 317003856 Problem Osteoarthritis of right knee M17.9 Active 531895128 Problem History of renal failure Z87.448 Active 990341537 ALLERGIES No Information ENCOUNTERS Encounter Location Date Diagnosis [facility] [id number] [place] [address] 96605- 5246 Mar, Essential hypertension I10 and Type 2 diabetes mellitus with diabetic neuropathy E11.40 [facility] [id number] [place] [address] 33200- 7404 Mar, [facility] [id number] [place] [address] 37650- 7463 Mar, Essential hypertension I10 [facility] [id number] [place] [address] 44121- 0259 Mar, Type 2 diabetes mellitus with diabetic neuropathy E11.40 [facility] [id number] [place] [address] [id number] Feb, Dental caries K02.9 [facility] [address] [place] [address] 37[address] Feb, [place] [address] [address]52- 2304 Feb, Type 2 diabetes mellitus with diabetic neuropathy E11.40 ; Essential hypertension I10 ; Mixed hyperlipidemia E78.2 ; History of CVA ( cerebrovascular accident) Z86.73 ; Other obesity due to excess calories E66.09 and Body mass index (BMI) of 31.0-31.9 in adult Z68.31 [facility] [address] [id number] Jan, Dental examination Z01.20 [place] [address] 40001- 9861 Jan, Type 2 diabetes mellitus with diabetic neuropathy E11.40 [facility] [address] [id number] Nov, Dental caries K02.9 [place] [address] 25850- 6249 Nov, Type 2 diabetes mellitus with diabetic neuropathy E11.40 [place] [id number] [place] [address] 37354- 6752 Nov, Medicare annual wellness visit, initial Z00.00 ; Type 2 diabetes mellitus with diabetic neuropathy E11.40 ; 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 ; 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 ; Essential hypertension I10 ; Mixed hyperlipidemia E78.2 ; History of CVA (cerebrovascular accident) Z86.73 ; History of renal failure Z87.448 ; Osteoarthritis of right knee M17.9 and Encounter for immunization Z23 [facility] [address] [place] [id number] [place] [address] [id number] Nov, Dental examination Z01.20 [facility] [address] [id number]- 3578 Oct, Type 2 diabetes mellitus with diabetic neuropathy E11.40 ; 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 ; 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 ; History of renal failure Z87.448 ; Mild single current episode of major depressive disorder F32.0 ; Essential hypertension I10 ; Mixed hyperlipidemia E78.2 and Chronic idiopathic constipation K59.04 [facility] [address] [place] [address] 16639 -1732 15 Oct, 2017 Type 2 diabetes mellitus with diabetic neuropathy E11.40 ; Dental caries extending into pulp K02.9 ; Nausea and vomiting, intractability of vomiting not specified, unspecified vomiting type R11.2 and Chronic idiopathic constipation K59.04 [place] [id number] [place] [address] 13920- 0433 Oct, Type 2 diabetes mellitus with diabetic neuropathy E11.40 [place] [id number] [place] [address] 55540- 5104 Aug, [place] [address] 72746- 1276 Jul, Type 2 diabetes mellitus with diabetic neuropathy E11.40 [facility] [id number] [place] [address] 04285 -7645 Jul, Muscle spasm of back M62.830 [place] [id number] [place] [address] 82613- 3397 Jun, Type 2 diabetes mellitus with diabetic neuropathy E11.40 ; 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 ; 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 ; History of renal failure Z87.448 and Mild single current episode of major depressive disorder F32.0 [place] [id number] [place] [address] 47121- 9262 Mar, Type 2 diabetes mellitus with diabetic neuropathy E11.40 ; jail current use of insulin Z79.4 ; 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 ; History of renal failure Z87.448 ; Mild single current episode of major depressive disorder F32.0 ; Pain in right knee M25.561 and Encounter for immunization Z23 [place] [id number] [place] [address] 51353- 2665 Feb, Bloody discharge from right nipple N64.52 [facility] [id number] [address] 5572 Feb, [place] [address] [address]- 8568 Feb, [facility] [address] [address]- 6557 December, Type 2 diabetes mellitus with diabetic neuropathy E11.40 [place] [address] [address] 3663 December, Type 2 diabetes mellitus with diabetic neuropathy E11.40 ; 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 ; [facility] C[facility] ; History of renal failure Z87.448 ; Mild single current episode of major depressive disorder F32.0 and Pain in right knee M25.561 [place] [address] [address]- 7212 Nov, Type 2 diabetes mellitus with diabetic neuropathy E11.40 ; jail current use of insulin Z79.4 ; 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 ; History of renal failure Z87.448 ; Mild single current episode of major depressive disorder F32.0 and Pain in right knee M25.561 [place] [address] [id number] [address]- 3640 16 Sep, 2016 Osteoarthritis of right knee M17.9 [place] [address] [address]- 3998 08 Sep, 2016 Type 2 diabetes mellitus with diabetic neuropathy E11.40 ; 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 ; 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 ; History of renal failure Z87.448 ; Mild single current episode of major depressive disorder F32.0 and Pain in right knee M25.561 [place] [id number] [address]- 1385 Aug, Type 2 diabetes mellitus with diabetic neuropathy E11.40 [place] [id number] [place] [address] 92383- 3481 Jul, Type 2 diabetes mellitus with diabetic neuropathy E11.40 ; jail current use of insulin Z79.4 ; Chronic myeloid leukemia in [facility] C92.11 ; History of renal failure Z87.448 and Mild single current episode of major depressive disorder F32.0 [facility] [id number] [place] [address] 61428- 3915 Jun, [facility] [id number] [place] [address] 93507- 4840 May, Type 2 diabetes mellitus with diabetic neuropathy E11.40 [facility] [address] 22406- 0664 May, Tendonitis M77.9 [facility] [id number] [place] [address] 24127- 6394 May, Type 2 diabetes mellitus with diabetic neuropathy E11.40 ; 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 ; Chronic myeloid leukemia in [facility] C92.11 ; History of renal failure Z87.448 and Mild single current episode of major depressive disorder F32.0 [facility] [id number] [place] [address] 03182- 5822 Apr, Type 2 diabetes mellitus with diabetic neuropathy E11.40 [facility] [id number] [place] [address] 91676- 8167 Apr, Type 2 diabetes mellitus with diabetic neuropathy E11.40 ; 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 ; Chronic myeloid leukemia in [facility] C92.11 ; History of renal failure Z87.448 ; Mild single current episode of major depressive disorder F32.0 and Right foot pain M79.671 [facility] [id number] [place] [address] 87719- 7752 Feb, History of renal failure Z87.448 [facility] [id number] [place] [address] 16795- 7819 Feb, Type 2 diabetes mellitus with diabetic neuropathy E11.40 ; 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 ; Essential hypertension I10 ; Mixed hyperlipidemia E78.2 ; History of CVA (cerebrovascular accident) Z86.73 and History of renal failure Z87.448 [place] [id number] [place] [address] 43711- 6450 Jan, [facility] [id number] [place] [address] 16715 -2457 Jan, Cellulitis of hand, left L03.114 [place] [id number] [place] [address] 67925- 0552 Nov, Osteoarthritis of right knee M17.9 [place] [id number] [place] [address] 89575- 9698 Sep, Type 2 diabetes mellitus with diabetic neuropathy E11.40 ; jail current use of insulin Z79.4 ; Chronic myeloid leukemia in [place]. ; Essential hypertension I10 ; Mixed hyperlipidemia E78.2 and History of CVA (cerebrovascular accident) Z86.73 [place] [id number] [place] [address] 14482- 7328 Aug, Osteoarthritis of right knee M17.9 [place] [address] 32348- 4890 Aug, Pain in right knee M25.561 [place] [id number] [place] [address] 16019- 4638 Jul, [place] [address] 00849- 0106 Jun, [place] [address] 25511- 6360 Jun, Axillary lump, right R22.31 [place] [id number] [place] [address] 86676- 0803 Jun, Type 2 diabetes mellitus with diabetic neuropathy E11.40 ; Encounter for immunization Z23 ; jail current use of insulin Z79.4 ; 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 ; Essential hypertension I10 ; Mixed hyperlipidemia E78.2 ; History of CVA (cerebrovascular accident) Z86.73 and Axillary lump, right R22.31 [place] [id number] [place] [address] 35484- 2262 Mar, Hyperlipidemia 272.4 [place] [id number] [place] [address] 18529- 6727 Mar, Right knee pain 719.46 [place] [id number] [place] [address] 65849- 6402 Mar, Rotator cuff impingement syndrome of left shoulder 726.10 [place] [id number] [place] [address] 86720- 1758 Feb, [place] [id number] [place] [address] 03412- 1687 Feb, Chronic myeloid leukemia, without mention of having achieved remission 205.10 ; Essential hypertension, malignant 401.0 ; Unspecified hereditary and idiopathic peripheral neuropathy 356.9 ; Diabetes mellitus type 2, controlled, with complications 250.90 ; Hyperlipidemia 272.4 and Pain, joint, shoulder, left 719.41 [facility] [address] [address]- 1771 Jan, [facility] [address] [facility] [id number] [place] [address]- 2833 14 Nov, 2014 [facility] [address] [facility] [id number] [place] [address] 91098- 0926 Nov, [facility] [address] [facility] [id number] [place] [address]- 9060 Oct, [facility] [address] [place] [address] [place] 0866 Oct, [facility] [address] [address]- 6605 Oct, [facility] [address] [address]- 3370 Oct, [facility] [id number] [address]- 6852 Oct, [facility] [address] [address]- 4551 Oct, [facility] [address] 5421 Sep, [facility] [address] 8933 Sep, [facility] [id number] [address]- 7557 Aug, [facility] [address] [address]- 2486 Aug, [facility] [id number] [address]- 4967 Jul, [facility] [address] [address]- 0560 Jul, [facility] [place] [facility] [address] [id number] [place] [address]- 4630 Jul, [facility] [place] [facility] [address] [id number] [place] [address]- 6036 Jul, [facility] [place] [facility] [address] [id number] [place] [address]- 4638 Jul, [facility] [place] [facility] [address] [id number] [place] [address]- 9691 Jul, [facility] [place] [facility] [address] [id number] [place] [address]- 8336 Jul, [facility] [place] [facility] [address] [id number] [place] [address]- 1996 Jul, [facility] [place] [facility] [address] [id number] [place] [address]- 0273 Jul, [facility] [place] [facility] [address] [id number] [place] [address]- 3117 May, [facility] [place] [facility] [address] [id number] [place] [address]- 4927 May, [facility] [place] [facility] [address] [id number] [place] [address]- 4035 Apr, [facility] [place] [facility] [address] [id number] [address]- 6763 Apr, [facility] [place] [facility] [address] [id number] [address]- 6301 Apr, [facility] [place] [facility] [address] [id number] [place] [address]- 6286 Apr, [facility] [place] [facility] [address] [id number] [place] [address]- 1052 Feb, [facility] [place] [facility] [address] [id number] [place] [address]- 9098 Feb, [facility] [place] [facility] [address] [id number] [place] [address]- 7724 Feb, [facility] [place] [facility] [address] [id number] [place] [address]- 3017 Feb, [facility] [place] [facility] [address] [id number] [place] [address]- 1894 Jan, [facility] [place] [facility] [address] [id number] [place] [address]- 8506 Jan, [facility] [place] [facility] [address] [id number] [place] [address]- 3747 Jan, [facility] [place] [facility] [address] [id number] [place] [address]- 0002 Jan, [facility] [place] [facility] [address] [id number] [place] [address]- 5233 Jan, [facility] [place] [facility] [address] [id number] [place] [address]- 3888 Jan, [facility] [place] [facility] [address] [id number] [place] [address]- 2911 December, [facility] [place] [facility] [address] [id number] [place] [address]- 2808 December, [facility] [place] [facility] [address] [id number] [place] [address]- 8761 December, [facility] [place] [facility] [address] [id number] [place] [address]- 4096 December, [facility] [place] [facility] [address] [id number] [place] [address]- 6398 Nov, [facility] [place] [facility] [address] [id number] [place] [address]- 1077 Nov, [facility] [place] [facility] [address] [id number] [place] [address]- 2031 Nov, [facility] [place] [facility] [address] [id number] [place] [address]- 7316 Nov, [facility] [place] [facility] [address] [id number] [place] [address]- 9213 Oct, [facility] [place] [facility] [address] [id number] [place] [address]- 9578 Oct, [facility] [place] [facility] [address] [id number] [place] [address]- 9095 Oct, [facility] [place] [facility] [address] [id number] [place] [address]- 9880 Oct, [facility] [place] [facility] [address] [id number] [place] [address]- 2698 Oct, [facility] [place] [facility] [address] [id number] [place] [address]- 4616 Oct, [facility] [place] [facility] [address] [id number] [place] [address]- 1547 Sep, [facility] [place] [facility] [address] [id number] [place] [address]- 2190 Sep, [facility] [place] [facility] [address] [id number] [place] [address]- 4528 Sep, [facility] [place] [facility] [address] [id number] [place] [address]- 3416 Sep, [facility] [place] [facility] [address] [id number] [place] [address]- 5537 Aug, [facility] [place] [facility] [address] [id number] [place] [address]- 3470 Aug, [facility] [place] [facility] [address] [id number] [place] [address]- 0457 Aug, [facility] [place] [facility] [address] [id number] [place] [address]- 0295 Aug, [facility] [place] [facility] [address] [id number] [place] [address]- 5446 Aug, [facility] [place] [facility] [address] [id number] [place] [address]- 3694 Aug, [facility] [address] [id number] [place] [address]- 5758 Jul, [facility] [place] [facility] [address] [id number] [place] [address]- 2024 Jul, [facility] [address] [id number] [place] [address]- 6770 Jul, [facility] [place] [facility] [address] [id number] [place] [address]- 6294 Jul, [facility] [address] [id number] [place] [address]- 3059 Jun, [facility] [place] [facility] [address] [id number] [place] [address]- 3856 Jun, [facility] [address] [id number] [place] [address]- 7676 May, [facility] [place] [facility] [address] [id number] [place] [address]- 8228 Feb, [facility] [address] [id number] [place] [address]- 4053 Feb, [facility] [place] [facility] [address] [id number] [place] [address]- 4941 Feb, [facility] [place] [facility] [address] [id number] [place] [address]- 7306 Jan, [facility] [place] [facility] [address] [id number], [place] [address]- 9232 Jan, [facility] [place] [facility] [address] [id number] [place] [address]- 5319 Jan, [facility] [place] [facility] [address] [id number] [place] [address]- 0358 December, [facility] [place] [facility] [address] [id number] [place] [address]- 7277 December, [facility] [place] [facility] [address] [id number] [place] [address]- 5276 December, [facility] [address] [id number] [place] [address]- 3784 25 Nov, 2012 [facility] [address] [id number] [place] [address]- 7756 17 Nov, 2012 [facility] [address] [id number] [place] [address]- 6506 16 Nov, 2012 [facility] [address] [id number] [place] [address]- 0297 15 Nov, 2012 [facility] [address] [id number] [place] [address]- 9944 10 Nov, 2012 [facility] [address] [id number] [place] [address]- 4780 09 Nov, 2012 [facility] [address] [id number] [place] [address]- 0342 22 Oct, 2012 [facility] [address] [id number] [place] [address]- 0887 Oct, [facility] [address] [id number] [place] [address]- 8658 Oct, [facility] [address] [id number] [place] [address]- 4044 28 Aug, 2012 [facility] [address] [id number] [place] [address] Aug, [facility] [address] [id number] [place] [address] 17 Aug, 2012 [facility] [place] [facility] [address] [id number] [place] [address] 14 Jul, 2012 [facility] [place] [facility] [address] [id number] [place] [address] 14 Jul, 2012 [facility] [place] [facility] [address] [id number] [place] [address] Jun, [facility] [place] [facility] [address] [id number] [place] [address] Jun, [facility] [place] [facility] [address] [id number] [place] [address] Jun, [facility] [place] [facility] [address] [id number] [place] [address] Jun, [facility] [place] [facility] [address] [id number] [place] [address] May, [facility] [place] [facility] [address] [id number] [place] [address] May, [facility] [place] [facility] [address] [id number] [place] [address] Apr, [facility] [place] [facility] [address] [id number] [place] [address] Apr, [facility] [place] [facility] [address] [id number] [place] [address] Feb, [facility] [place] [facility] [address] [id number] [place] [address] Feb, [facility] [place] [facility] [address] [id number] [place] [address] Nov, [facility] [place] [facility] [address] [id number] [place] [address] Oct, [facility] [place] [facility] [address] [id number] [address] Sep, [facility] [place] [facility] [address] [id number] [place] [address] Sep, [facility] [place] [facility] [address] [id number] [place] [address] Sep, [facility] [place] [facility] [address] [id number] [place] [address] Aug, [facility] [place] [facility] [address] [facility] [id number][place] [address] 17 Aug, 2011 [facility] [address] [facility] [id number] [address] Aug, [facility] [address] [facility] [id number] [address] Jul, [facility] [address] [facility] [id number] [address] Jul, [facility] [address] [facility] [id number] [place] [address] Jun, [facility] [address] [facility] [id number] [place] [address], [place] [address] Jun, [facility] [address] [facility] [id number], [place] [address] Jun, [facility] [id number] [place] [address] May, [facility] [address] [facility] [id number], [place] [address] May, [facility] [id number] [address] May, [facility] [id number] [address] May, [facility] [id number] [address] May, [facility] [address] [facility] [id number][place] [address] Feb, [facility] [id number] [address] 13 Nov, 2010 [facility] [id number] [address] 14 Oct, 2010 IMMUNIZATIONS No Known Immunizations SOCIAL HISTORY Never Assessed REASON FOR VISIT Refill request PLAN OF CARE VITAL SIGNS MEDICATIONS Medication Instructions Dosage Frequency Start Date End Date Duration Status Glimepiride 2 MG Orally 2 times a day TAKE ONE TABLET BY MOUTH TWICE DAILY 12h 30 Active Metoprolol Succinate ER 25 MG Orally 2 times a day TAKE ONE-HALF TABLET BY MOUTH TWICE DAILY 12h 30 Active RESULTS No Results PROCEDURES No Known procedures INSTRUCTIONS MEDICATIONS ADMINISTERED No Known Medications MEDICAL (GENERAL) HISTORY Type Description Date Medical History hypertension Medical History hyperlipidemia Medical History type II diabetes Medical History Arthritis-knees and hips Medical History stroke-05/2011 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
--- OUTSIDE RECORDS SUMMARY | 2018-06-03 14:14 | XMS REPORT ---
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.4 Active 610918184 Problem Essential hypertension I10 Active 47641913 Problem Type 2 diabetes mellitus with diabetic neuropathy E11.40 Active 13333117 Problem Other obesity due to excess calories E66.09 Active 463122366 Problem Chronic idiopathic constipation K59.04 Active 23989661 Problem 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 Active 56139222 Problem Mixed hyperlipidemia E78.2 Active 176770279 Problem Osteoarthritis of right knee M17.9 Active 100165984 Problem History of renal failure Z87.448 Active [id number] ALLERGIES No Information ENCOUNTERS Encounter Location Date Diagnosis [facility] [id number] [place] [address] 42608- 6316 May, [facility] [address] 97180- 1204 Mar, Essential hypertension I10 and Type 2 diabetes mellitus with diabetic neuropathy E11.40 [facility] [id number] [place] [address] 46033- 8007 Mar, [facility] [address] 80421- 5207 Mar, Essential hypertension I10 [facility] [address] 46473- 8665 Mar, Type 2 diabetes mellitus with diabetic neuropathy E11.40 [facility] [address] [id number] Feb, Dental caries K02.9 [facility] [id number] [place] [address] 53670- 1135 Feb, [facility] [id number] [place] [address] [id number]- 1817 Feb, Type 2 diabetes mellitus with diabetic neuropathy E11.40 ; Essential hypertension I10 ; Mixed hyperlipidemia E78.2 ; History of CVA ( cerebrovascular accident) Z86.73 ; Other obesity due to excess calories E66.09 and Body mass index (BMI) of 31.0-31.9 in adult Z68.31 [facility] [id number] [place] [address] [id number] Jan, Dental examination Z01.20 [facility] [id number] [place] [address] 54153- 8971 Jan, Type 2 diabetes mellitus with diabetic neuropathy E11.40 [facility] [id number] [place] [address] [id number] Nov, Dental caries K02.9 [facility] [id number] [place] [address] 09371- 7486 Nov, Type 2 diabetes mellitus with diabetic neuropathy E11.40 [facility] [id number] [place] [address] 91640- 7465 Nov, Medicare annual wellness visit, initial Z00.00 ; Type 2 diabetes mellitus with diabetic neuropathy E11.40 ; lobsterman current use of insulin Z79.4 ; 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 ; Essential hypertension I10 ; Mixed hyperlipidemia E78.2 ; History of CVA (cerebrovascular accident) Z86.73 ; History of renal failure Z87.448 ; Osteoarthritis of right knee M17.9 and Encounter for immunization Z23 [facility] [id number] [place] [address] [id number] Nov, Dental examination Z01.20 [facility] [id number] [place] [address] 21445- 1702 Oct, Type 2 diabetes mellitus with diabetic neuropathy E11.40 ; retirement current use of insulin Z79.4 ; [facility] C92.11 ; History of renal failure Z87.448 ; Mild single current episode of major depressive disorder F32.0 ; Essential hypertension I10 ; Mixed hyperlipidemia E78.2 and Chronic idiopathic constipation K59.04 [facility] [address] 8[address] -6016 15 Oct, 2017 Type 2 diabetes mellitus with diabetic neuropathy E11.40 ; Dental caries extending into pulp K02.9 ; Nausea and vomiting, intractability of vomiting not specified, unspecified vomiting type R11.2 and Chronic idiopathic constipation K59.04 [place] [address] 68671- 7648 Oct, Type 2 diabetes mellitus with diabetic neuropathy E11.40 [place] [address] 00136- 6468 Aug, [facility] [address] 44918- 5393 Jul, Type 2 diabetes mellitus with diabetic neuropathy E11.40 [facility] [address] 43756 -9960 Jul, Muscle spasm of back M62.830 [place] [address] 25045- 7582 Jun, Type 2 diabetes mellitus with diabetic neuropathy E11.40 ; retirement current use of insulin Z79.4 ; [facility] C92.11 ; History of renal failure Z87.448 and Mild single current episode of major depressive disorder F32.0 [place] [address] 92429- 0800 Mar, Type 2 diabetes mellitus with diabetic neuropathy E11.40 ; lobsterman current use of insulin Z79.4 ; [facility] leukemia in [facility] C92.11 ; History of renal failure Z87.448 ; Mild single current episode of major depressive disorder F32.0 ; Pain in right knee M25.561 and Encounter for immunization Z23 [place] [id number] [address] 35[address] Feb, Bloody discharge from right nipple N64.52 [place] [address] [place] [address] 4959 Feb, [place] [address] [place] [address]- 4508 Feb, [place] [address] [address]- 6775 December, Type 2 diabetes mellitus with diabetic neuropathy E11.40 [place] [address] [address]- 6322 December, Type 2 diabetes mellitus with diabetic neuropathy E11.40 ; retirement current use of insulin Z79.4 ; Chronic myeloid leukemia in [facility] C92.11 ; History of renal failure Z87.448 ; Mild single current episode of major depressive disorder F32.0 and Pain in right knee M25.561 [place] [id number] [address]- 8178 Nov, Type 2 diabetes mellitus with diabetic neuropathy E11.40 ; lobsterman current use of insulin Z79.4 ; [facility] leukemia in [facility] C92.11 ; History of renal failure Z87.448 ; Mild single current episode of major depressive disorder F32.0 and Pain in right knee M25.561 [place] [id number] [address]- 8817 16 Sep, 2016 Osteoarthritis of right knee M17.9 [place] [id number], [place] [address]- 1580 Sep, Type 2 diabetes mellitus with diabetic neuropathy E11.40 ; lobsterman current use of insulin Z79.4 ; [facility] in [facility] C92.11 ; History of renal failure Z87.448 ; Mild single current episode of major depressive disorder F32.0 and Pain in right knee M25.561 [place] [id number], [place] [address]- 4962 Aug, Type 2 diabetes mellitus with diabetic neuropathy E11.40 [place] [address] [place] [address] 08593- 8251 Jul, Type 2 diabetes mellitus with diabetic neuropathy E11.40 ; lobsterman current use of insulin Z79.4 ; [facility] C92.11 ; History of renal failure Z87.448 and Mild single current episode of major depressive disorder F32.0 [place] [id number] [place] [address] 54535- 9780 Jun, [place] [id number] [place] [address] 00913- 3466 May, Type 2 diabetes mellitus with diabetic neuropathy E11.40 [place] [id number] [place] [address] 25017- 2338 24 May, 2016 Tendonitis M77.9 [place] [id number] [place] [address] 83289- 4116 May, Type 2 diabetes mellitus with diabetic neuropathy E11.40 ; lobsterman current use of insulin Z79.4 ; Chronic myeloid leukemia in [facility] C92.11 ; History of renal failure Z87.448 and Mild single current episode of major depressive disorder F32.0 [place] [address] [place] [address] 42373- 9995 Apr, Type 2 diabetes mellitus with diabetic neuropathy E11.40 [place] [id number] [place] [address] 32185- 9496 Apr, Type 2 diabetes mellitus with diabetic neuropathy E11.40 ; retirement current use of insulin Z79.4 ; [facility] C92.11 ; History of renal failure Z87.448 ; Mild single current episode of major depressive disorder F32.0 and Right foot pain M79.671 [place] [address] [place] [address] 81207- 4834 Feb, History of renal failure Z87.448 [place] [id number] [place] [address] 82744- 5602 Feb, Type 2 diabetes mellitus with diabetic neuropathy E11.40 ; retirement current use of insulin Z79.4 ; Chronic myeloid leukemia in [facility] C92.11 ; History of renal failure Z87.448 and Mild single current episode of major depressive disorder F32.0 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 [place] [id number] [place] [address] 75517- 1352 Feb, Type 2 diabetes mellitus with diabetic neuropathy E11.40 ; retirement current use of insulin Z79.4 ; Chronic myeloid leukemia in [place] 748592.11 ; Essential hypertension I10 ; Mixed hyperlipidemia E78.2 ; History of CVA (cerebrovascular accident) Z86.73 ; History of renal failure Z87.448 and Mild single current episode of major depressive disorder F32.0 [place] [id number] [place] [address] 26968- 3111 Jan, Type 2 diabetes mellitus with diabetic neuropathy E11.40 ; retirement current use of insulin Z79.4 ; Chronic myeloid leukemia in [place] [address]. ; Essential hypertension I10 ; Mixed hyperlipidemia E78.2 ; History of CVA (cerebrovascular accident) Z86.73 and History of renal failure Z87.448 [place] [address], [place] [address]- 9841 Jan, [facility] [address] [place] [address] 96363 -2987 Jan, Cellulitis of hand, left L03.114 [place] [id number] [place] [address] 15632- 1771 Nov, Osteoarthritis of right knee M17.9 [facility] [id number] [place] [address] 77115- 3423 Sep, Type 2 diabetes mellitus with diabetic neuropathy E11.40 ; retirement current use of insulin Z79.4 ; Chronic myeloid leukemia in [place] 748592.11 ; Essential hypertension I10 ; Mixed hyperlipidemia E78.2 and History of CVA (cerebrovascular accident) Z86.73 [place] [id number] [place] [address] 90770- 7158 Aug, Osteoarthritis of right knee M17.9 [place] [id number] [place] [address] 03311- 5786 Aug, Pain in right knee M25.561 [address] [address] 42319- 5828 Jul, [place] [id number] [place] [address] 10644- 8153 Jun, [place] [address] 23275- 2527 Jun, Axillary lump, right R22.31 [place] [address] 52452- 1973 Jun, Type 2 diabetes mellitus with diabetic neuropathy E11.40 ; Encounter for immunization Z23 ; lobsterman current use of insulin Z79.4 ; 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 ; Essential hypertension I10 ; Mixed hyperlipidemia E78.2 ; History of CVA (cerebrovascular accident) Z86.73 and Axillary lump, right R22.31 [place] [id number] [place] [address] 64150- 0721 Mar, Hyperlipidemia 272.4 [place] [id number] [place] [address] 69096- 5116 Mar, Right knee pain 719.46 [place] [id number] [place] [address] 53722- 7088 Mar, Rotator cuff impingement syndrome of left shoulder 726.10 [place] [id number] [place] [address] 85717- 2018 Feb, [place] [id number] [place] [address] 74047- 5032 Feb, Chronic myeloid leukemia, without mention of having achieved remission 205.10 ; Essential hypertension, malignant 401.0 ; Unspecified hereditary and idiopathic peripheral neuropathy 356.9 ; Diabetes mellitus type 2, controlled, with complications 250.90 ; Hyperlipidemia 272.4 and Pain, joint, shoulder, left 719.41 [facility] [address] [address]- 9586 23 Jan, 2015 [facility] [id number] [address]- 4776 Nov, [facility] [id number] [address]- 5036 Nov, [facility] [address] [place] [address]- 7566 Oct, [facility] [address], [place] [address]- 4086 Oct, [facility] [id number] [place] [address]- 7669 Oct, [facility] [address], [place] [address]- 5510 Oct, [facility] [address], [place] [address]- 4653 Oct, [facility] [address], [place] [address]- 1876 Oct, [facility] [address], [place] [address]- 2546 Sep, [facility] [address], [place] [address]- 2546 Sep, [facility] [address], [place] [address]- 2546 Aug, [facility] [address], [place] [address]- 2546 Aug, [facility] [address], [place] [address]- 3601 Jul, [facility] [place] [facility] [address] [id number] [place] [address]- 0164 Jul, [facility] [place] [facility] [address] [id number] [place] [address]- 7956 Jul, [facility] [place] [facility] [address] [id number] [place] 3020 Jul, [facility] [place] [facility] [address] [id number] [place] [address]- 4914 Jul, [facility] [place] [facility] [address] [id number] [place] [address]- 1822 Jul, [facility] [place] [facility] [address] [id number] [place] [address]- 1113 Jul, [facility] [place] [facility] [address] [id number] [place] [address]- 4044 Jul, [facility] [place] [facility] [address] [id number] [place] [address]- 1969 Jul, [facility] [place] [facility] [address] [id number] [place] [address]- 9945 May, [facility] [place] [facility] [address] [id number] [place] [address]- 3502 May, [facility] [place] [facility] [address] [id number] [place] [address]- 8713 Apr, [facility] [place] [facility] [address] [id number], [place] [address]- 1393 Apr, [facility] [place] [facility] [address] [id number] [place] [address]- 9155 Apr, [facility] [place] [facility] [address] [id number] [place] [address]- 5501 Apr, [facility] [place] [facility] [address] [id number] [place] [address]- 1795 Feb, [facility] [place] [facility] [address] [id number] [place] [address]- 2160 Feb, [facility] [place] [facility] [address] [id number] [place] [address]- 9382 Feb, [facility] [place] [facility] [address] [id number] [place] [address]- 4128 Feb, [facility] [place] [facility] [address] [id number] [place] [address]- 9998 Jan, [facility] [place] [facility] [address] [id number] [place] [address]- 0935 Jan, [facility] [place] [facility] [address] [id number] [place] [address]- 1151 Jan, [facility] [place] [facility] [address] [id number] [place] [address]- 8488 Jan, [facility] [place] [facility] [address] [id number] [place] [address]- 0643 Jan, [facility] [place] [facility] [address] [id number] [place] [address]- 6079 Jan, [facility] [place] [facility] [address] [id number] [place] [address]- 5314 December, [facility] [place] [facility] [address] [id number] [place] [address]- 8336 December, [facility] [place] [facility] [address] [id number] [place] [address]- 9008 December, [facility] [place] [facility] [address] [id number] [place] [address]- 5425 December, [facility] [place] [facility] [address] [id number] [place] [address]- 7327 Nov, [facility] [place] [facility] [address] [id number] [place] [address]- 5421 Nov, [facility] [place] [facility] [address] [id number] [place] [address]- 4578 Nov, [facility] [place] [facility] [address] [id number] [place] [address]- 5911 Nov, [facility] [place] [facility] [address] [id number] [place] [address]- 8805 Oct, [facility] [place] [facility] [address] [id number] [place] [address]- 0580 Oct, [facility] [place] [facility] [address] [id number] [place] [address]- 3595 Oct, [facility] [place] [facility] [address] [id number] [place] [address]- 8290 Oct, [facility] [place] [facility] [address] [id number] [place] [address]- 8287 Oct, [facility] [place] [facility] [address] [id number] [place] [address]- 0284 Oct, [facility] [place] [facility] [address] [id number] [place] [address]- 8850 Sep, [facility] [place] [facility] [address] [id number] [place] [address]- 3907 Sep, [facility] [place] [facility] [address] [id number] [place] [address]- 1700 Sep, [facility] [place] [facility] [address] [id number] [place] [address]- 3708 Sep, [facility] [place] [facility] [address] [id number] [place] [address]- 7279 Aug, [facility] [place] [facility] [address] [id number] [place] [address]- 6386 Aug, [facility] [place] [facility] [address] [id number] [place] [address]- 0491 Aug, [facility] [place] [facility] [address] [id number] [place] [address]- 6966 Aug, [facility] [place] [facility] [address] [id number] [address]- 7769 Aug, [facility] [address] [id number] [place] [address]- 1134 Aug, [facility] [place] [facility] [address] [id number] [place] [address]- 0319 Jul, [facility] [place] [facility] [address] [id number] [place] 8268 Jul, [facility] [place] [facility] [address] [id number] [place] [address]- 2066 Jul, [facility] [place] [facility] [address] [id number] [place] [address]- 8373 Jul, [facility] [place] [facility] [address] [id number] [place] [address]- 7752 Jun, [facility] [place] [facility] [address] [id number] [place] [address]- 5798 Jun, [facility] [place] [facility] [address] [id number] [place] [address]- 9971 May, [facility] [place] [facility] [address] [id number] [place] [address]- 5448 Feb, [facility] [place] [facility] [address] [id number] [place] [address]- 7713 Feb, [facility] [place] [facility] [address] [id number] [place] [address]- 5119 Feb, [facility] [place] [facility] [address] [id number] [place] [address]- 3410 Jan, [facility] [place] [facility] [address] [id number] [place] [address]- 3601 Jan, [facility] [place] [facility] [address] [id number] [place] [address]- 6378 Jan, [facility] [place] [facility] [address] [id number] [place] [address]- 4637 December, [facility] [place] [facility] [address] [id number] [place] [address]- 6366 December, [facility] [address] [id number] [place] [address]- 4311 December, [facility] [address] [id number] [place] [address]- 7856 Nov, [facility] [address] [id number] [place] [address]- 8226 17 Nov, 2012 [facility] [address] [id number] [place] [address]- 9022 16 Nov, 2012 [facility] [address] [id number] [place] [address]- 8699 15 Nov, 2012 [facility] [address] [id number] [place] [address]- 2032 Nov, [facility] [address] [id number] [place] [address]- 0590 Nov, [facility] [address] [id number] [place] [address]- 3286 Oct, [facility] [address] [id number] [place] [address]- 0638 Oct, [facility] [address] [id number] [place] [address] Oct, [facility] [address] [id number] [place] [address] Aug, [facility] [address] [id number] [place] [address] Aug, [facility] [address] [id number] [place] [address] Aug, [facility] [address] [id number] [place] [address] 14 Jul, 2012 [facility] [address] [id number] [place] [address] Jul, [facility] [place] [facility] [address] [id number] [place] [address] Jun, [facility] [place] [facility] [address] [id number] [place] [address] Jun, [facility] [place] [facility] [address] [id number] [place] [address] Jun, [facility] [place] [facility] [address] [id number] [place] [address] Jun, [facility] [place] [facility] [address] [id number] [place] [address] May, [facility] [place] [facility] [address] [id number] [place] [address] May, [facility] [place] [facility] [address] [facility] [id number] [place] [address] Apr, [facility] [place] [facility] [address] [id number] [place] [address] Apr, [facility] [place] [facility] [address] [id number] [place] [address] Feb, [facility] [place] [facility] [address] [facility] [id number] [place] [address] Feb, [facility] [place] [facility] [address] [id number] [place] [address] Nov, [facility] [place] [facility] [address] [id number], [place] [address] Oct, [facility] [place] [facility] [address] [id number] [place] [address] Sep, [facility] [place] [facility] [address] [id number] [place] [address] Sep, [facility] [place] [facility] [address] [facility] [id number] [place] [address] Sep, [facility] [place] [facility] [address] [facility] [id number] [place] [address] 20 Aug, 2011 [facility] [address] [id number] [place] [address] 17 Aug, 2011 [facility] [address] [id number] [place] [address] 16 Aug, 2011 [facility] [address] [address] [id number] [place] [address] Jul, [facility] [address] [id number] [place] [address] Jul, [facility] [address] [id number] [place] [address], [place] [address] Jun, [facility] [address] [id number] [place] [address] Jun, [facility] [address] [facility] [id number] [place] [address] Jun, [facility] [address] [facility] [id number] [place] [address] May, [facility] [address] [facility] [id number] [place] [address] 27 May, 2011 [facility] [address] [facility] [id number] [place] [address] May, [facility] [address] [facility] [id number] [place] [address] May, [facility] [address] [facility] [id number], [place] [address] 19 May, 2011 [facility] [address] [facility] [id number] [place] [address] 20 Feb, 2011 [facility] [address] [facility] [id number] [place] [address] 13 Nov, 2010 [facility] [address] [facility] [id number], [place] [address] 14 Oct, 2010 IMMUNIZATIONS No Known Immunizations SOCIAL HISTORY Never Assessed REASON FOR VISIT Refill request PLAN OF CARE VITAL SIGNS MEDICATIONS Medication Instructions Dosage Frequency Start Date End Date Duration Status Atorvastatin Calcium 40 mg Orally Once a day 1 tablet 24h 90 Active RESULTS No Results PROCEDURES No Known procedures INSTRUCTIONS MEDICATIONS ADMINISTERED No Known Medications MEDICAL (GENERAL) HISTORY Type Description Date Medical History hypertension Medical History hyperlipidemia Medical History type II diabetes Medical History Arthritis-knees and hips Medical History stroke-05/2011 Medical History 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 Yu Surgical History dilatation and curettage 03/2000 Surgical History tubal ligation 1978 Hospitalization History Via [facility] admit for stroke 05/2011 Hospitalization History [facility] for elevated blood sugars 09/2010
--- OUTSIDE RECORDS SUMMARY | 2018-06-03 14:15 | XMS REPORT ---
Author Author ANTONINO WALLER Organization [facility] Address [address] [place] [address] Care Team Providers Care Yarn Inspector Name Role Phone CHRISTINANGELAANTONINO Unavailable PROBLEMS Type Condition ICD9-CM Code MTP04-OJ Code Onset Dates Condition Status SNOMED Code Problem History of CVA (cerebrovascular accident) Z86.73 Active 080933710 Problem half-way current use of insulin Z79.4 Active 445126758 Problem Essential hypertension I10 Active 11237175 Problem Type 2 diabetes mellitus with diabetic neuropathy E11.40 Active 49400237 Problem Other obesity due to excess calories E66.09 Active 806439963 Problem Chronic idiopathic constipation K59.04 Active 51991066 Problem 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 Active 04447528 Problem Mixed hyperlipidemia E78.2 Active 148327760 Problem Osteoarthritis of right knee M17.9 Active 963036029 Problem History of renal failure Z87.448 Active [id number] ALLERGIES No Information ENCOUNTERS Encounter Location Date Diagnosis [facility] [id number] [place] [address] 64356- 3649 Mar, Essential hypertension I10 and Type 2 diabetes mellitus with diabetic neuropathy E11.40 [facility] [id number] [place] [address] 45805- 8340 Mar, [facility] [id number] [place] [address] 26701- 7455 Mar, Essential hypertension I10 [facility] [id number] [place] [address] 12517- 9156 Mar, Type 2 diabetes mellitus with diabetic neuropathy E11.40 [facility] [address] [place] [address] [id number] Feb, Dental caries K02.9 [facility] [address] [place] [address] 3[address] Feb, [place] [address] 6[address]- 6530 Feb, Type 2 diabetes mellitus with diabetic neuropathy E11.40 ; Essential hypertension I10 ; Mixed hyperlipidemia E78.2 ; History of CVA ( cerebrovascular accident) Z86.73 ; Other obesity due to excess calories E66.09 and Body mass index (BMI) of 31.0-31.9 in adult Z68.31 [facility] [address] [id number] Jan, Dental examination Z01.20 [place] [address] 35397- 3618 Jan, Type 2 diabetes mellitus with diabetic neuropathy E11.40 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 bug exterminator current use of insulin Z79.4 ; 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 ; Essential hypertension I10 ; Mixed hyperlipidemia E78.2 ; History of CVA (cerebrovascular accident) Z86.73 ; History of renal failure Z87.448 ; Osteoarthritis of right knee M17.9 and Encounter for immunization Z23 [facility] [id number] [place] [address] [id number] Nov, Dental examination Z01.20 [facility] [address] [id number]- 0545 Oct, Type 2 diabetes mellitus with diabetic neuropathy E11.40 ; bed bug exterminator current use of insulin Z79.4 ; 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 ; History of renal failure Z87.448 ; Mild single current episode of major depressive disorder F32.0 ; Essential hypertension I10 ; Mixed hyperlipidemia E78.2 and Chronic idiopathic constipation K59.04 [facility] [address] [place] [address] 91516 -2786 15 Oct, 2017 Type 2 diabetes mellitus with diabetic neuropathy E11.40 ; Dental caries extending into pulp K02.9 ; Nausea and vomiting, intractability of vomiting not specified, unspecified vomiting type R11.2 and Chronic idiopathic constipation K59.04 [place] [id number] [place] [address] 32434- 6390 Oct, Type 2 diabetes mellitus with diabetic neuropathy E11.40 [place] [id number] [place] [address] 67741- 3319 Aug, [place] [address] 69514- 0110 Jul, Type 2 diabetes mellitus with diabetic neuropathy E11.40 [facility] [id number] [place] [address] 07667 -5567 Jul, Muscle spasm of back M62.830 [place] [id number] [place] [address] 05679- 8438 Jun, Type 2 diabetes mellitus with diabetic neuropathy E11.40 ; bed bug exterminator current use of insulin Z79.4 ; 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 ; History of renal failure Z87.448 and Mild single current episode of major depressive disorder F32.0 [place] [id number] [place] [address] 10123- 3866 Mar, Type 2 diabetes mellitus with diabetic neuropathy E11.40 ; half-way current use of insulin Z79.4 ; 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 ; History of renal failure Z87.448 ; Mild single current episode of major depressive disorder F32.0 ; Pain in right knee M25.561 and Encounter for immunization Z23 [place] [id number] [place] [address] 70697- 0012 Feb, Bloody discharge from right nipple N64.52 [facility] [id number] [address] 9566 Feb, [place] [address] [address]- 9101 Feb, [facility] [address] [address]- 5725 December, Type 2 diabetes mellitus with diabetic neuropathy E11.40 [place] [address], [place] [address]- 4842 December, Type 2 diabetes mellitus with diabetic neuropathy E11.40 ; bed bug exterminator current use of insulin Z79.4 ; [facility] C[facility] ; History of renal failure Z87.448 ; Mild single current episode of major depressive disorder F32.0 and Pain in right knee M25.561 [place] [address], [place] [address]- 9136 Nov, Type 2 diabetes mellitus with diabetic neuropathy E11.40 ; half-way current use of insulin Z79.4 ; 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 ; History of renal failure Z87.448 ; Mild single current episode of major depressive disorder F32.0 and Pain in right knee M25.561 [place] [address] [place] [address] [id number] [address]- 7895 16 Sep, 2016 Osteoarthritis of right knee M17.9 [place] [address], [place] [address]- 2458 08 Sep, 2016 Type 2 diabetes mellitus with diabetic neuropathy E11.40 ; bed bug exterminator current use of insulin Z79.4 ; 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 ; History of renal failure Z87.448 ; Mild single current episode of major depressive disorder F32.0 and Pain in right knee M25.561 [place] [address] [place] [id number], [place] [address]- 6553 Aug, Type 2 diabetes mellitus with diabetic neuropathy E11.40 [place] [id number] [place] [address] 88647- 5486 Jul, Type 2 diabetes mellitus with diabetic neuropathy E11.40 ; half-way current use of insulin Z79.4 ; Chronic myeloid leukemia in [facility] C92.11 ; History of renal failure Z87.448 and Mild single current episode of major depressive disorder F32.0 [facility] [id number] [place] [address] 92730- 2056 Jun, [facility] [id number] [place] [address] 83518- 0742 May, Type 2 diabetes mellitus with diabetic neuropathy E11.40 [facility] [address] 59983- 3438 May, Tendonitis M77.9 [facility] [id number] [place] [address] 13572- 6834 May, Type 2 diabetes mellitus with diabetic neuropathy E11.40 ; bed bug exterminator current use of insulin Z79.4 ; Chronic myeloid leukemia in [facility] C92.11 ; History of renal failure Z87.448 and Mild single current episode of major depressive disorder F32.0 [facility] [id number] [place] [address] 94829- 5346 Apr, Type 2 diabetes mellitus with diabetic neuropathy E11.40 [facility] [id number] [place] [address] 53950- 3781 Apr, Type 2 diabetes mellitus with diabetic neuropathy E11.40 ; bed bug exterminator current use of insulin Z79.4 ; Chronic myeloid leukemia in [facility] C92.11 ; History of renal failure Z87.448 ; Mild single current episode of major depressive disorder F32.0 and Right foot pain M79.671 [facility] [id number] [place] [address] 01900- 0938 Feb, History of renal failure Z87.448 [facility] [id number] [place] [address] 29540- 2687 Feb, Type 2 diabetes mellitus with diabetic neuropathy E11.40 ; bed bug exterminator current use of insulin Z79.4 ; Chronic myeloid leukemia in [place] 766842. 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 [place] [id number] [place] [address] 56701- 7586 Feb, Type 2 diabetes mellitus with diabetic neuropathy E11.40 ; bed bug exterminator current use of insulin Z79.4 ; Chronic myeloid leukemia in [place] 766842.11 ; Essential hypertension I10 ; Mixed hyperlipidemia E78.2 ; History of CVA (cerebrovascular accident) Z86.73 ; History of renal failure Z87.448 and Mild single current episode of major depressive disorder F32.0 [place] [id number] [place] [address] 49265- 4379 Jan, Type 2 diabetes mellitus with diabetic neuropathy E11.40 ; bed bug exterminator current use of insulin Z79.4 ; Chronic myeloid leukemia in [place] 766842. ; Essential hypertension I10 ; Mixed hyperlipidemia E78.2 ; History of CVA (cerebrovascular accident) Z86.73 and History of renal failure Z87.448 [place] [id number] [place] [address] 04449- 6981 Jan, [facility] [id number] [place] [address] 76800 -8256 Jan, Cellulitis of hand, left L03.114 [place] [id number] [place] [address] 47924- 0237 Nov, Osteoarthritis of right knee M17.9 [place] [id number] [place] [address] 12467- 5148 Sep, Type 2 diabetes mellitus with diabetic neuropathy E11.40 ; half-way current use of insulin Z79.4 ; Chronic myeloid leukemia in [place] 766842. ; Essential hypertension I10 ; Mixed hyperlipidemia E78.2 and History of CVA (cerebrovascular accident) Z86.73 [place] [id number] [place] [address] 13743- 7776 Aug, Osteoarthritis of right knee M17.9 [place] [address] 77855- 6082 Aug, Pain in right knee M25.561 [place] [id number] [place] [address] 59487- 2874 Jul, [place] [address] 70893- 7068 Jun, [place] [address] 10465- 1479 Jun, Axillary lump, right R22.31 [place] [id number] [place] [address] 88608- 2426 Jun, Type 2 diabetes mellitus with diabetic neuropathy E11.40 ; Encounter for immunization Z23 ; half-way current use of insulin Z79.4 ; 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 ; Essential hypertension I10 ; Mixed hyperlipidemia E78.2 ; History of CVA (cerebrovascular accident) Z86.73 and Axillary lump, right R22.31 [place] [id number] [place] [address] 25678- 5884 Mar, Hyperlipidemia 272.4 [place] [id number] [place] [address] 29679- 6151 Mar, Right knee pain 719.46 [place] [id number] [place] [address] 69574- 2848 Mar, Rotator cuff impingement syndrome of left shoulder 726.10 [place] [id number] [place] [address] 92349- 3354 Feb, [place] [id number] [place] [address] 99017- 6414 Feb, Chronic myeloid leukemia, without mention of having achieved remission 205.10 ; Essential hypertension, malignant 401.0 ; Unspecified hereditary and idiopathic peripheral neuropathy 356.9 ; Diabetes mellitus type 2, controlled, with complications 250.90 ; Hyperlipidemia 272.4 and Pain, joint, shoulder, left 719.41 [facility] [address] [address]- 5550 Jan, [facility] [address] [facility] [id number] [place] [address]- 8060 14 Nov, 2014 [facility] [address] [facility] [id number] [place] [address] 99916- 9922 Nov, [facility] [address] [facility] [id number] [place] [address]- 6301 Oct, [facility] [address] [place] [address], [place]- 8589 Oct, [facility] [address] [address]- 9884 Oct, [facility] [address] [address]- 2260 Oct, [facility] [address] [place] [id number], [place] [address]- 8501 Oct, [facility] [address], [place] [address]- 4987 Oct, [facility] [address] 9408 Sep, [facility] [address] 3810 Sep, [facility] [id number], [place] [address]- 7213 Aug, [facility] [address], [place] [address]- 5436 Aug, [facility] [address] [id number] [address]- 9624 Jul, [facility] [address], [place] [address]- 3964 Jul, [facility] [place] [facility] [address] [id number] [place] [address]- 6949 Jul, [facility] [place] [facility] [address] [id number] [place] [address]- 1136 Jul, [facility] [place] [facility] [address] [id number] [place] [address]- 8568 Jul, [facility] [place] [facility] [address] [id number] [place] [address]- 9640 Jul, [facility] [place] [facility] [address] [id number] [place] [address]- 7878 Jul, [facility] [place] [facility] [address] [id number] [place] [address]- 9654 Jul, [facility] [place] [facility] [address] [id number] [place] [address]- 3298 Jul, [facility] [place] [facility] [address] [id number] [place] [address]- 4258 May, [facility] [place] [facility] [address] [id number] [place] [address]- 3177 May, [facility] [place] [facility] [address] [id number] [place] [address]- 2400 Apr, [facility] [place] [facility] [address] [id number] [address]- 3471 Apr, [facility] [place] [facility] [address] [id number], [place] [address]- 7596 Apr, [facility] [place] [facility] [address] [id number] [place] [address]- 4336 Apr, [facility] [place] [facility] [address] [id number] [place] [address]- 2458 Feb, [facility] [place] [facility] [address] [id number] [place] [address]- 7514 Feb, [facility] [place] [facility] [address] [id number] [place] [address]- 8203 Feb, [facility] [place] [facility] [address] [id number] [place] [address]- 5423 Feb, [facility] [place] [facility] [address] [id number] [place] [address]- 9766 Jan, [facility] [place] [facility] [address] [id number] [place] [address]- 9037 Jan, [facility] [place] [facility] [address] [id number] [place] [address]- 8433 Jan, [facility] [place] [facility] [address] [id number] [place] [address]- 3727 Jan, [facility] [place] [facility] [address] [id number] [place] [address]- 3729 Jan, [facility] [place] [facility] [address] [id number] [place] [address]- 9754 Jan, [facility] [place] [facility] [address] [id number] [place] [address]- 6088 December, [facility] [place] [facility] [address] [id number] [place] [address]- 2196 December, [facility] [place] [facility] [address] [id number] [place] [address]- 6641 December, [facility] [place] [facility] [address] [id number] [place] [address]- 0914 December, [facility] [place] [facility] [address] [id number] [place] [address]- 6763 Nov, [facility] [place] [facility] [address] [id number] [place] [address]- 7647 Nov, [facility] [place] [facility] [address] [id number] [place] [address]- 4668 Nov, [facility] [place] [facility] [address] [id number] [place] [address]- 2501 Nov, [facility] [place] [facility] [address] [id number] [place] [address]- 1220 Oct, [facility] [place] [facility] [address] [id number] [place] [address]- 0190 Oct, [facility] [place] [facility] [address] [id number] [place] [address]- 0152 Oct, [facility] [place] [facility] [address] [id number] [place] [address]- 9714 Oct, [facility] [place] [facility] [address] [id number] [place] [address]- 8425 Oct, [facility] [place] [facility] [address] [id number] [place] [address]- 2161 Oct, [facility] [place] [facility] [address] [id number] [place] [address]- 0244 Sep, [facility] [place] [facility] [address] [id number] [place] [address]- 5808 Sep, [facility] [place] [facility] [address] [id number] [place] [address]- 7474 Sep, [facility] [place] [facility] [address] [id number] [place] [address]- 0142 Sep, [facility] [place] [facility] [address] [id number] [place] [address]- 9597 Aug, [facility] [place] [facility] [address] [id number] [place] [address]- 4725 Aug, [facility] [place] [facility] [address] [id number] [place] [address]- 1819 Aug, [facility] [place] [facility] [address] [id number] [place] [address]- 4865 Aug, [facility] [place] [facility] [address] [id number] [place] [address]- 2271 Aug, [facility] [place] [facility] [address] [id number] [place] [address]- 2434 Aug, [facility] [address] [id number] [place] [address]- 1167 Jul, [facility] [place] [facility] [address] [id number] [place] [address]- 0433 Jul, [facility] [address] [id number] [place] [address]- 4517 Jul, [facility] [place] [facility] [address] [id number] [place] [address]- 7343 Jul, [facility] [address] [id number] [place] [address]- 6497 Jun, [facility] [place] [facility] [address] [id number] [place] [address]- 1577 Jun, [facility] [address] [id number] [place] [address]- 5887 May, [facility] [place] [facility] [address] [id number] [place] [address]- 0181 Feb, [facility] [address] [id number] [place] [address]- 5674 Feb, [facility] [place] [facility] [address] [id number] [place] [address]- 4998 Feb, [facility] [place] [facility] [address] [id number] [place] [address]- 0716 Jan, [facility] [place] [facility] [address] [id number] [address]- 2938 Jan, [facility] [place] [facility] [address] [id number] [place] [address]- 5335 Jan, [facility] [place] [facility] [address] [id number] [place] [address]- 7847 December, [facility] [place] [facility] [address] [id number] [place] [address]- 6859 December, [facility] [place] [facility] [address] [id number] [place] [address]- 0964 December, [facility] [address] [id number] [place] [address]- 2668 25 Nov, 2012 [facility] [address] [id number] [place] [address]- 0316 17 Nov, 2012 [facility] [address] [id number] [place] [address]- 8125 16 Nov, 2012 [facility] [address] [id number] [place] [address]- 6813 15 Nov, 2012 [facility] [address] [id number] [place] [address]- 4823 10 Nov, 2012 [facility] [address] [id number] [place] [address]- 1066 09 Nov, 2012 [facility] [address] [id number] [place] [address]- 7747 22 Oct, 2012 [facility] [address] [id number] [place] [address]- 9688 Oct, [facility] [address] [id number] [place] [address]- 3304 Oct, [facility] [address] [id number] [place] [address]- 6071 28 Aug, 2012 [facility] [address] [id number] [place] [address]- 0666 Aug, [facility] [address] [id number] [place] [address]- 8483 17 Aug, 2012 [facility] [place] [facility] [address] [id number] [place] [address]- 8555 14 Jul, 2012 [facility] [place] [facility] [address] [id number] [place] [address]- 0037 14 Jul, 2012 [facility] [place] [facility] [address] [id number] [place] [address]- 7362 Jun, [facility] [place] [facility] [address] [id number] [place] [address] Jun, [facility] [place] [facility] [address] [id number] [place] [address] Jun, [facility] [place] [facility] [address] [id number] [place] [address] Jun, [facility] [place] [facility] [address] [id number] [place] [address] May, [facility] [place] [facility] [address] [id number] [place] [address] May, [facility] [place] [facility] [address] [id number] [place] [address] Apr, [facility] [place] [facility] [address] [id number] [place] [address] Apr, [facility] [place] [facility] [address] [id number] [place] [address] Feb, [facility] [place] [facility] [address] [id number] [place] [address] Feb, [facility] [place] [facility] [address] [id number] [place] [address] Nov, [facility] [place] [facility] [address] [id number] [place] [address] Oct, [facility] [place] [facility] [address] [id number] [address] Sep, [facility] [place] [facility] [address] [id number] [place] [address] Sep, [facility] [place] [facility] [address] [id number] [place] [address] Sep, [facility] [place] [facility] [address] [id number] [place] [address] Aug, [facility] [place] [facility] [address] [facility] [id number] [address] 17 Aug, 2011 [facility] [address] [facility] [id number], [place] [address] Aug, [facility] [address] [facility] [id number] [address] Jul, [facility] [id number] [address] Jul, [facility] [address] [facility] [id number] [address] Jun, [facility] [address] [facility] [id number] [place] [address] Jun, [facility] [address] [facility] [id number], [place] [address] Jun, [facility] [id number] [place] [address] May, [facility] [address] [id number] [address] May, [facility] [address] [id number] [address] May, [facility] [address], [place] [address] May, [facility] [id number], [place] [address] May, [facility] [address] [facility] [id number] [address] Feb, [facility] [address], [place] [address] 13 Nov, 2010 [facility] [id number] [address] 14 Oct, 2010 IMMUNIZATIONS No Known Immunizations SOCIAL HISTORY Never Assessed REASON FOR VISIT Refill request PLAN OF CARE VITAL SIGNS MEDICATIONS Medication Instructions Dosage Frequency Start Date End Date Duration Status Metoprolol Succinate ER 25 MG Orally 2 [...] 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
--- OUTSIDE RECORDS SUMMARY | 2018-06-03 14:15 | XMS REPORT ---
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 Name Role Phone CHRISTINANGELAANTONINO Unavailable PROBLEMS Type Condition ICD9-CM Code OUE83-QL Code Onset Dates Condition Status SNOMED Code Problem History of CVA (cerebrovascular accident) Z86.73 Active 364270325 Problem jail current use of insulin Z79.4 Active 214950540 Problem Essential hypertension I10 Active 29924170 Problem Type 2 diabetes mellitus with diabetic neuropathy E11.40 Active 03989835 Problem Other obesity due to excess calories E66.09 Active 853287790 Problem Chronic idiopathic constipation K59.04 Active 24411176 Problem 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 Active 17254216 Problem Mixed hyperlipidemia E78.2 Active 290841215 Problem Osteoarthritis of right knee M17.9 Active 975961761 Problem History of renal failure Z87.448 Active [id number] ALLERGIES No Information ENCOUNTERS Encounter Location Date Diagnosis [facility] [id number] [place] [address] 25179- 5091 Mar, Essential hypertension I10 and Type 2 diabetes mellitus with diabetic neuropathy E11.40 [facility] [address] [place] [id number] [place] [address] 70894- 2599 Mar, [facility] [id number] [place] [address] 57991- 7245 Mar, Essential hypertension I10 [facility] [id number] [place] [address] 03365- 4557 Mar, Type 2 diabetes mellitus with diabetic neuropathy E11.40 [facility] [address] [place] [address] [id number] Feb, Dental caries K02.9 [facility] [address] [place] [address] 49[address] Feb, [place] [address] [address]- 6043 Feb, Type 2 diabetes mellitus with diabetic neuropathy E11.40 ; Essential hypertension I10 ; Mixed hyperlipidemia E78.2 ; History of CVA ( cerebrovascular accident) Z86.73 ; Other obesity due to excess calories E66.09 and Body mass index (BMI) of 31.0-31.[address] [facility] [address] [id number] Jan, Dental examination Z01.20 [place] [address] 19493- 6582 Jan, Type 2 diabetes mellitus with diabetic neuropathy E11.40 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.4 ; 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 ; Essential hypertension I10 ; Mixed hyperlipidemia E78.2 ; History of CVA (cerebrovascular accident) Z86.73 ; History of renal failure Z87.448 ; Osteoarthritis of right knee M17.9 and Encounter for immunization Z23 [facility] [address] [id number] [place] [address] [id number] Nov, Dental examination Z01.20 [facility] [address] [id number]- 4230 Oct, Type 2 diabetes mellitus with diabetic neuropathy E11.40 ; 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 [address] [place] [address] 65949 -3892 15 Oct, 2017 Type 2 diabetes mellitus with diabetic neuropathy E11.40 ; Dental caries extending into pulp K02.9 ; Nausea and vomiting, intractability of vomiting not specified, unspecified vomiting type R11.2 and Chronic idiopathic constipation K59.04 [place] [address] [place] [id number] [place] [address] 64255- 9272 Oct, Type 2 diabetes mellitus with diabetic neuropathy E11.40 [place] [address] [place] [id number] [place] [address] 41519- 4846 Aug, [place] [address] 70099- 9864 Jul, Type 2 diabetes mellitus with diabetic neuropathy E11.40 [facility] IN 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.4 ; 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 ; History of renal failure Z87.448 and Mild single current episode of major depressive disorder F32.0 [place] [id number] [place] [address] 13574- 1292 Mar, Type 2 diabetes mellitus with diabetic neuropathy E11.40 ; jail current use of insulin Z79.4 ; 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 ; History of renal failure Z87.448 ; Mild single current episode of major depressive disorder F32.0 ; Pain in right knee M25.561 and Encounter for immunization Z23 [place] [address] [place] [id number] [place] [address] 57602- 5131 Feb, Bloody discharge from right nipple N64.52 [facility] [address] [place] [id number] [address]- 4178 Feb, [place] [address] [address]- 7249 Feb, [facility] [address] [address]- 9622 December, Type 2 diabetes mellitus with diabetic neuropathy E11.40 [place] [address] [address]- 2518 December, Type 2 diabetes mellitus with diabetic neuropathy E11.40 ; 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 Z79.4 ; [facility] C[facility] ; History of renal failure Z87.448 ; Mild single current episode of major depressive disorder F32.0 and Pain in right knee M25.561 [place] [address] [address]- 2910 Nov, Type 2 diabetes mellitus with diabetic neuropathy E11.40 ; jail current use of insulin Z79.4 ; 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 ; History of renal failure Z87.448 ; Mild single current episode of major depressive disorder F32.0 and Pain in right knee M25.561 [place] [address] [place] [id number] [address]- 9003 16 Sep, 2016 Osteoarthritis of right knee M17.9 [place] [address] [address]- 6463 08 Sep, 2016 Type 2 diabetes mellitus with diabetic neuropathy E11.40 ; 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 Z79.4 ; 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 ; History of renal failure Z87.448 ; Mild single current episode of major depressive disorder F32.0 and Pain in right knee M25.561 [place] [address] [place] [id number] [address]- 6519 Aug, Type 2 diabetes mellitus with diabetic neuropathy E11.40 [place] [id number] [place] [address] 13474- 2989 Jul, Type 2 diabetes mellitus with diabetic neuropathy E11.40 ; jail current use of insulin Z79.4 ; [facility] C92.11 ; History of renal failure Z87.448 and Mild single current episode of major depressive disorder F32.0 [facility] [id number] [place] [address] 53729- 9888 Jun, [facility] [address] [id number] [place] [address] 78583- 7431 May, Type 2 diabetes mellitus with diabetic neuropathy E11.40 [facility] [address] 40916- 7819 May, Tendonitis M77.9 [facility] [address] [id number] [place] [address] 14119- 4937 May, Type 2 diabetes mellitus with diabetic neuropathy E11.40 ; 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 Z79.4 ; [facility] C92.11 ; History of renal failure Z87.448 and Mild single current episode of major depressive disorder F32.0 [facility] [address] [place] [id number] [place] [address] 40357- 4598 Apr, Type 2 diabetes mellitus with diabetic neuropathy E11.40 [facility] [address] [place] [id number] [place] [address] 85986- 0086 Apr, Type 2 diabetes mellitus with diabetic neuropathy E11.40 ; 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 Z79.4 ; [facility] C92.11 ; History of renal failure Z87.448 ; Mild single current episode of major depressive disorder F32.0 and Right foot pain M79.671 [facility] [address] [id number] [place] [address] 18385- 4219 Feb, History of renal failure Z87.448 [facility] [id number] [place] [address] 04390- 4636 Feb, Type 2 diabetes mellitus with diabetic neuropathy E11.40 ; 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 ; Essential hypertension I10 ; Mixed hyperlipidemia E78.2 ; History of CVA (cerebrovascular accident) Z86.73 and History of renal failure Z87.448 [place] [address] [id number] [place] [address] 18658- 1047 Jan, [facility] [address] [id number] [place] [address] 65823 -2227 Jan, Cellulitis of hand, left L03.114 [place] [address] [place] [id number] [place] [address] 96956- 9754 Nov, Osteoarthritis of right knee M17.9 [place] [address] [id number] [place] [address] 40632- 9740 Sep, Type 2 diabetes mellitus with diabetic neuropathy E11.40 ; jail current 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 ; Essential hypertension I10 ; Mixed hyperlipidemia E78.2 and History of CVA (cerebrovascular accident) Z86.73 [place] [address] [place] [address] [id number] [place] [address] 73056- 4057 Aug, Osteoarthritis of right knee M17.9 [place] [address] 79622- 2525 Aug, Pain in right knee M25.561 [place] [address] [place] [id number] [place] [address] 60500- 4874 Jul, [place] [address] 41019- 4904 Jun, [place] [address] 42015- 4307 Jun, Axillary lump, right R22.31 [place] [address] [place] [id number] [place] [address] 71041- 1357 Jun, Type 2 diabetes mellitus with diabetic neuropathy E11.40 ; Encounter for immunization Z23 ; jail current use of insulin Z79.4 ; 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 ; Essential hypertension I10 ; Mixed hyperlipidemia E78.2 ; History of CVA (cerebrovascular accident) Z86.73 and Axillary lump, right R22.31 [place] [address] [place] [id number] [place] [address] 20230- 9563 Mar, Hyperlipidemia 272.4 [place] [address] [place] [address] [id number] [place] [address] 36885- 8033 Mar, Right knee pain 719.46 [place] [address] [place] [address] [id number] [place] [address] 18174- 6789 Mar, Rotator cuff impingement syndrome of left shoulder 726.10 [place] [address] [place] [id number] [place] [address] 99379- 3502 Feb, [place] [address] [place] [id number] [place] [address] 00589- 8809 Feb, Chronic myeloid leukemia, without mention of having achieved remission 205.10 ; Essential hypertension, malignant 401.0 ; Unspecified hereditary and idiopathic peripheral neuropathy 356.9 ; Diabetes mellitus type 2, controlled, with complications 250.90 ; Hyperlipidemia 272.4 and Pain, joint, shoulder, left 719.41 [facility] [address] [place] [address]- 3453 Jan, [facility] [address] [facility] [id number] [place] [address]- 3581 14 Nov, 2014 [facility] [address] [facility] [id number] [place] [address] 32623- 6323 Nov, [facility] [address] [facility] [id number] [place] [address]- 6691 Oct, [facility] [address] [place] [address], [place] 5829 Oct, [facility] [address] [address]- 8790 Oct, [facility] [address] [place] [address]- 4658 Oct, [facility] [address] [place] [address] [id number] [address]- 3661 Oct, [facility] [address] [address]- 2447 Oct, [facility] [address] 8887 Sep, [facility] [address] 0610 Sep, [facility] [address] [id number] [address]- 9323 Aug, [facility] [address] [address]- 0146 Aug, [facility] [address] [place] [id number] [address]- 9291 Jul, [facility] [address] [address]- 8419 Jul, [facility] [place] [facility] [address] [id number] [place] [address]- 4635 Jul, [facility] [place] [facility] [address] [id number] [place] [address]- 6026 Jul, [facility] [place] [facility] [address] [id number] [place] [address]- 6339 Jul, [facility] [place] [facility] [address] [id number] [place] [address]- 9367 Jul, [facility] [place] [facility] [address] [id number] [place] [address]- 9705 Jul, [facility] [place] [facility] [address] [id number] [place] [address]- 9556 Jul, [facility] [place] [facility] [address] [id number] [place] [address]- 3550 Jul, [facility] [place] [facility] [address] [id number] [place] [address]- 0285 May, [facility] [place] [facility] [address] [id number] [place] [address]- 8637 May, [facility] [place] [facility] [address] [id number] [place] [address]- 2570 Apr, [facility] [place] [facility] [address] [id number] [address]- 6185 Apr, [facility] [place] [facility] [address] [id number] [address]- 3346 Apr, [facility] [place] [facility] [address] [id number] [place] [address]- 2636 Apr, [facility] [place] [facility] [address] [id number] [place] [address]- 7132 Feb, [facility] [place] [facility] [address] [id number] [place] [address]- 8620 Feb, [facility] [place] [facility] [address] [id number] [place] [address]- 2482 Feb, [facility] [place] [facility] [address] [id number] [place] [address]- 7872 Feb, [facility] [place] [facility] [address] [id number] [place] [address]- 5343 Jan, [facility] [place] [facility] [address] [id number] [place] [address]- 9003 Jan, [facility] [place] [facility] [address] [id number] [place] [address]- 5541 Jan, [facility] [place] [facility] [address] [id number] [place] [address]- 2174 Jan, [facility] [place] [facility] [address] [id number] [place] [address]- 2700 Jan, [facility] [place] [facility] [address] [id number] [place] [address]- 5557 Jan, [facility] [place] [facility] [address] [id number] [place] [address]- 6235 December, [facility] [place] [facility] [address] [id number] [place] [address]- 5792 December, [facility] [place] [facility] [address] [id number] [place] [address]- 8662 December, [facility] [place] [facility] [address] [id number] [place] [address]- 6005 December, [facility] [place] [facility] [address] [id number] [place] [address]- 9963 Nov, [facility] [place] [facility] [address] [id number] [place] [address]- 2358 Nov, [facility] [place] [facility] [address] [id number] [place] [address]- 4819 Nov, [facility] [place] [facility] [address] [id number] [place] [address]- 0748 Nov, [facility] [place] [facility] [address] [id number] [place] [address]- 9579 Oct, [facility] [place] [facility] [address] [id number] [place] [address]- 3042 Oct, [facility] [place] [facility] [address] [id number] [place] [address]- 2203 Oct, [facility] [place] [facility] [address] [id number] [place] [address]- 2164 Oct, [facility] [place] [facility] [address] [id number] [place] [address]- 8962 Oct, [facility] [place] [facility] [address] [id number] [place] [address]- 0106 Oct, [facility] [place] [facility] [address] [id number] [place] [address]- 8810 Sep, [facility] [place] [facility] [address] [id number] [place] [address]- 6503 Sep, [facility] [place] [facility] [address] [id number] [place] [address]- 0054 Sep, [facility] [place] [facility] [address] [id number] [place] [address]- 9794 Sep, [facility] [place] [facility] [address] [id number] [place] [address]- 3261 Aug, [facility] [place] [facility] [address] [id number] [place] [address]- 9822 Aug, [facility] [place] [facility] [address] [id number] [place] [address]- 6135 Aug, [facility] [place] [facility] [address] [id number] [place] [address]- 0614 Aug, [facility] [place] [facility] [address] [id number] [place] [address]- 2733 Aug, [facility] [place] [facility] [address] [id number] [place] [address]- 8063 Aug, [facility] [address] [id number] [place] [address]- 5175 Jul, [facility] [place] [facility] [address] [id number] [place] [address]- 5547 Jul, [facility] [address] [id number] [place] [address]- 9669 Jul, [facility] [place] [facility] [address] [id number] [place] [address]- 3398 Jul, [facility] [address] [id number] [place] [address]- 8158 Jun, [facility] [place] [facility] [address] [id number] [place] [address]- 3375 Jun, [facility] [address] [id number] [place] [address]- 4084 May, [facility] [place] [facility] [address] [id number] [place] [address]- 0196 Feb, [facility] [address] [id number] [place] [address]- 8060 Feb, [facility] [place] [facility] [address] [id number] [place] [address]- 0113 Feb, [facility] [place] [facility] [address] [id number] [place] [address]- 6413 Jan, [facility] [place] [facility] [address] [id number] [address]- 2571 Jan, [facility] [place] [facility] [address] [id number] [place] [address]- 0462 Jan, [facility] [place] [facility] [address] [id number] [place] [address]- 8401 December, [facility] [place] [facility] [address] [id number] [place] [address]- 9295 December, [facility] [place] [facility] [address] [id number] [place] [address]- 3443 December, [facility] [address] [id number] [place] [address]- 1271 25 Nov, 2012 [facility] [address] [id number] [place] [address]- 1636 17 Nov, 2012 [facility] [address] [id number] [place] [address]- 5314 16 Nov, 2012 [facility] [address] [id number] [place] [address]- 4716 15 Nov, 2012 [facility] [address] [id number] [place] [address]- 7493 10 Nov, 2012 [facility] [address] [id number] [place] [address]- 2216 09 Nov, 2012 [facility] [address] [id number] [place] [address]- 3408 22 Oct, 2012 [facility] [address] [id number] [place] [address]- 2895 Oct, [facility] [address] [id number] [place] [address]- 2276 Oct, [facility] [address] [id number] [place] [address]- 3275 28 Aug, 2012 [facility] [address] [id number] [place] [address]- 3245 Aug, [facility] [address] [id number] [place] [address]- 2932 17 Aug, 2012 [facility] [place] [facility] [address] [id number] [place] [address]- 7992 14 Jul, 2012 [facility] [place] [facility] [address] [id number] [place] [address]- 2881 14 Jul, 2012 [facility] [place] [facility] [address] [id number] [place] [address]- 8157 Jun, [facility] [place] [facility] [address] [id number] [place] [address]- 1201 Jun, [facility] [place] [facility] [address] [id number] [place] [address]- 9857 Jun, [facility] [place] [facility] [address] [id number] [place] [address] Jun, [facility] [place] [facility] [address] [id number] [place] [address] May, [facility] [place] [facility] [address] [id number] [place] [address] May, [facility] [place] [facility] [address] [id number] [place] [address] Apr, [facility] [place] [facility] [address] [id number] [place] [address] Apr, [facility] [place] [facility] [address] [id number] [place] [address] Feb, [facility] [place] [facility] [address] [id number] [place] [address] Feb, [facility] [place] [facility] [address] [id number] [place] [address] Nov, [facility] [place] [facility] [address] [id number] [place] [address] Oct, [facility] [place] [facility] [address] [id number] [address] Sep, [facility] [place] [facility] [address] [id number] [place] [address] Sep, [facility] [place] [facility] [address] [id number] [place] [address] Sep, [facility] [place] [facility] [address] [id number] [place] [address] Aug, [facility] [place] [facility] [id number] [address] 17 Aug, 2011 [facility] [address] [facility] [id number] [address] Aug, [facility] [id number] [address] Jul, [facility] [id number] [place] [address] Jul, [facility] [address] [facility] [id number] [address] Jun, [facility] [address] [id number] [place] [id number]- [address] Jun, [facility] [id number] [address] Jun, [facility] [id number] [place] [address] May, [facility] [id number] [address] May, [facility] [id number] [address] May, [facility] [id number] [address] May, [facility] [id number] [address] May, [facility] [id number] [address] Feb, [facility] [id number] [address] Nov, [facility] [id number] [address] 14 Oct, 2010 IMMUNIZATIONS No Known Immunizations SOCIAL HISTORY Never Assessed REASON FOR VISIT Refill request PLAN OF CARE VITAL SIGNS MEDICATIONS Unknown Medications RESULTS No Results PROCEDURES No Known procedures INSTRUCTIONS MEDICATIONS ADMINISTERED No Known Medications MEDICAL (GENERAL) HISTORY Type Description Date Medical History hypertension Medical History hyperlipidemia Medical History type II diabetes Medical History Arthritis-knees and hips Medical History stroke-05/2011 Medical History 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 Medical History Dysphagia, unspecified Medical History Unspecified hereditary and idiopathic peripheral neuropathy Surgical History dilatation and curettage 03/2000 Surgical History tubal ligation 1978 Hospitalization History [facility] admit [facility] stroke 05/2011 Hospitalization History [facility] for elevated blood sugars 09/2010
--- OUTSIDE RECORDS SUMMARY | 2018-06-03 14:16 | XMS REPORT ---
Author Author ANTONINO WALLER Organization [facility] Address [address] [place] [address] Care Team Providers Care Sustainability Project Coordinator Name Role Phone CHRISTINANGELAANTONINO Unavailable PROBLEMS Type Condition ICD9-CM Code [id number] Code Onset Dates Condition Status SNOMED Code Problem History of CVA (cerebrovascular accident) Z86.73 Active 343314927 Problem intermediate current use of insulin Z79.4 Active 618296202 Problem Essential hypertension I10 Active 41747814 Problem Type 2 diabetes mellitus with diabetic neuropathy E11.40 Active 51610384 Problem Other obesity due to excess calories E66.09 Active 350343538 Problem Chronic idiopathic constipation K59.04 Active 16202690 Problem 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 Active 91116886 Problem Mixed hyperlipidemia E78.2 Active 438384615 Problem Osteoarthritis of right knee M17.9 Active 939362899 Problem History of renal failure Z87.448 Active [id number] ALLERGIES No Information ENCOUNTERS Encounter Location Date Diagnosis [facility] [id number] [place] [address] 88067- 2240 Mar, Essential hypertension I10 and Type 2 diabetes mellitus with diabetic neuropathy E11.40 [facility] [id number] [place] [address] 95115- 5609 Mar, [facility] [id number] [place] [address] 31834- 1687 Mar, Essential hypertension I10 [facility] [id number] [place] [address] 61837- 4199 Mar, Type 2 diabetes mellitus with diabetic neuropathy E11.40 [facility] [id number] [place] [address] [id number] Feb, Dental caries K02.9 [facility] [address] [place] [address] 5[address] Feb, [place] [address] [address]- 2608 Feb, Type 2 diabetes mellitus with diabetic neuropathy E11.40 ; Essential hypertension I10 ; Mixed hyperlipidemia E78.2 ; History of CVA ( cerebrovascular accident) Z86.73 ; Other obesity due to excess calories E66.09 and Body mass index (BMI) of 31.0-31.9 in adult Z68.31 [facility] [address] [id number] Jan, Dental examination Z01.20 [place] [address] 27331- 6077 Jan, Type 2 diabetes mellitus with diabetic neuropathy E11.40 [facility] [address] [id number] Nov, Dental caries K02.9 [place] [address] 21171- 0910 Nov, Type 2 diabetes mellitus with diabetic neuropathy E11.40 [place] [id number] [place] [address] 81630- 7765 Nov, Medicare annual wellness visit, initial Z00.00 ; Type 2 diabetes mellitus with diabetic neuropathy E11.40 ; long term care pharmacist current use of insulin Z79.4 ; 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 ; Essential hypertension I10 ; Mixed hyperlipidemia E78.2 ; History of CVA (cerebrovascular accident) Z86.73 ; History of renal failure Z87.448 ; Osteoarthritis of right knee M17.9 and Encounter for immunization Z23 [facility] [address] [id number] [place] [address] [id number] Nov, Dental examination Z01.20 [facility] [address] 19872679- 0049 Oct, Type 2 diabetes mellitus with diabetic neuropathy E11.40 ; long term care pharmacist current use of insulin Z79.4 ; 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 ; History of renal failure Z87.448 ; Mild single current episode of major depressive disorder F32.0 ; Essential hypertension I10 ; Mixed hyperlipidemia E78.2 and Chronic idiopathic constipation K59.04 [facility] [id number] [place] [address] 73502 -1626 15 Oct, 2017 Type 2 diabetes mellitus with diabetic neuropathy E11.40 ; Dental caries extending into pulp K02.9 ; Nausea and vomiting, intractability of vomiting not specified, unspecified vomiting type R11.2 and Chronic idiopathic constipation K59.04 [place] [id number] [place] [address] 48359- 2862 Oct, Type 2 diabetes mellitus with diabetic neuropathy E11.40 [place] [id number] [place] [address] 07952- 0241 Aug, [place] [address] 97750- 8314 Jul, Type 2 diabetes mellitus with diabetic neuropathy E11.40 [facility] [id number] [place] [address] 54748 -9181 Jul, Muscle spasm of back M62.830 [place] [id number] [place] [address] 73589- 7652 Jun, Type 2 diabetes mellitus with diabetic neuropathy E11.40 ; long term care pharmacist current use of insulin Z79.4 ; 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 ; History of renal failure Z87.448 and Mild single current episode of major depressive disorder F32.0 [place] [id number] [place] [address] 42418- 2673 Mar, Type 2 diabetes mellitus with diabetic neuropathy E11.40 ; intermediate current use of insulin Z79.4 ; 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 ; History of renal failure Z87.448 ; Mild single current episode of major depressive disorder F32.0 ; Pain in right knee M25.561 and Encounter for immunization Z23 [place] [id number] [place] [address] 52241- 9849 Feb, Bloody discharge from right nipple N64.52 [facility] [address] [id number] [address] 1405 Feb, [place] [address] [address]- 9350 Feb, [facility] [address] [address]- 0233 December, Type 2 diabetes mellitus with diabetic neuropathy E11.40 [place] [address] [address]- 4472 December, Type 2 diabetes mellitus with diabetic neuropathy E11.40 ; long term care pharmacist current use of insulin Z79.4 ; [facility] C92.11 ; History of renal failure Z87.448 ; Mild single current episode of major depressive disorder F32.0 and Pain in right knee M25.561 [place] [address] [address]- 8423 Nov, Type 2 diabetes mellitus with diabetic neuropathy E11.40 ; intermediate current use of insulin Z79.4 ; 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 ; History of renal failure Z87.448 ; Mild single current episode of major depressive disorder F32.0 and Pain in right knee M25.561 [place] [address] [place] [id number] [address]- 7347 16 Sep, 2016 Osteoarthritis of right knee M17.9 [place] [address] [address]- 3407 08 Sep, 2016 Type 2 diabetes mellitus with diabetic neuropathy E11.40 ; long term care pharmacist current use of insulin Z79.4 ; 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 ; History of renal failure Z87.448 ; Mild single current episode of major depressive disorder F32.0 and Pain in right knee M25.561 [place] [address] [address] [id number] [address]- 1875 Aug, Type 2 diabetes mellitus with diabetic neuropathy E11.40 [place] [id number] [place] [address] 52841- 2770 Jul, Type 2 diabetes mellitus with diabetic neuropathy E11.40 ; intermediate current use of insulin Z79.4 ; Chronic myeloid leukemia in [facility] C92.11 ; History of renal failure Z87.448 and Mild single current episode of major depressive disorder F32.0 [facility] [id number] [place] [address] 30511- 5393 Jun, [facility] [id number] [place] [address] 35281- 7765 May, Type 2 diabetes mellitus with diabetic neuropathy E11.40 [facility] [address] 86728- 0431 May, Tendonitis M77.9 [facility] [id number] [place] [address] 42875- 4023 May, Type 2 diabetes mellitus with diabetic neuropathy E11.40 ; long term care pharmacist current use of insulin Z79.4 ; Chronic myeloid leukemia in [facility] C92.11 ; History of renal failure Z87.448 and Mild single current episode of major depressive disorder F32.0 [facility] [id number] [place] [address] 59616- 4290 Apr, Type 2 diabetes mellitus with diabetic neuropathy E11.40 [facility] [id number] [place] [address] 17297- 7912 Apr, Type 2 diabetes mellitus with diabetic neuropathy E11.40 ; long term care pharmacist current use of insulin Z79.4 ; Chronic myeloid leukemia in [facility] C92.11 ; History of renal failure Z87.448 ; Mild single current episode of major depressive disorder F32.0 and Right foot pain M79.671 [facility] [id number] [place] [address] 51533- 9573 Feb, History of renal failure Z87.448 [facility] [id number] [place] [address] 28761- 3842 Feb, Type 2 diabetes mellitus with diabetic neuropathy E11.40 ; long term care pharmacist current use of insulin Z79.4 ; Chronic myeloid leukemia in [place]. 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 [place] [id number] [place] [address] 16249- 8576 Feb, Type 2 diabetes mellitus with diabetic neuropathy E11.40 ; long term care pharmacist current use of insulin Z79.4 ; Chronic myeloid leukemia in [place] 307102.11 ; Essential hypertension I10 ; Mixed hyperlipidemia E78.2 ; History of CVA (cerebrovascular accident) Z86.73 ; History of renal failure Z87.448 and Mild single current episode of major depressive disorder F32.0 [place] [id number] [place] [address] 86454- 4715 Jan, Type 2 diabetes mellitus with diabetic neuropathy E11.40 ; long term care pharmacist current use of insulin Z79.4 ; Chronic myeloid leukemia in [place] [address]102. ; Essential hypertension I10 ; Mixed hyperlipidemia E78.2 ; History of CVA (cerebrovascular accident) Z86.73 and History of renal failure Z87.448 [place] [id number] [place] [address] 68331- 5684 Jan, [facility] [id number] [place] [address] 44655 -5314 Jan, Cellulitis of hand, left L03.114 [place] [address] [address] [id number] [place] [address] 77066- 3523 Nov, Osteoarthritis of right knee M17.9 [place] [address] [id number] [place] [address] 48377- 0363 Sep, Type 2 diabetes mellitus with diabetic neuropathy E11.40 ; intermediate current use of insulin Z79.4 ; Chronic myeloid leukemia in [place] [address]102. ; Essential hypertension I10 ; Mixed hyperlipidemia E78.2 and History of CVA (cerebrovascular accident) Z86.73 [place] [id number] [place] [address] 65419- 4997 Aug, Osteoarthritis of right knee M17.9 [place] [address] 76772- 8927 Aug, Pain in right knee M25.561 [place] [address] [place] [address] [id number] [place] [address] 65071- 2122 Jul, [place] [address] 57339- 5974 Jun, [place] [address] 67964- 4495 Jun, Axillary lump, right R22.31 [place] [address] [place] [id number] [place] [address] 08817- 2183 Jun, Type 2 diabetes mellitus with diabetic neuropathy E11.40 ; Encounter for immunization Z23 ; intermediate current use of insulin Z79.4 ; 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 ; Essential hypertension I10 ; Mixed hyperlipidemia E78.2 ; History of CVA (cerebrovascular accident) Z86.73 and Axillary lump, right R22.31 [place] [address] [id number] [place] [address] 38251- 5325 Mar, Hyperlipidemia 272.4 [place] [id number] [place] [address] 69712- 0894 Mar, Right knee pain 719.46 [place] [address] [id number] [place] [address] 05236- 6930 Mar, Rotator cuff impingement syndrome of left shoulder 726.10 [place] [address] [id number] [place] [address] 54526- 7024 Feb, [place] [address] [address] [id number] [place] [address] 25667- 8917 Feb, Chronic myeloid leukemia, without mention of having achieved remission 205.10 ; Essential hypertension, malignant 401.0 ; Unspecified hereditary and idiopathic peripheral neuropathy 356.9 ; Diabetes mellitus type 2, controlled, with complications 250.90 ; Hyperlipidemia 272.4 and Pain, joint, shoulder, left 719.41 [facility] [id number] [place] [address]- 1087 Jan, [facility] [address] [facility] [id number] [place] [address]- 8486 14 Nov, 2014 [facility] [address] [facility] [id number] [place] [address] 47684- 4961 Nov, [facility] [address] [facility] [id number] [place] [address]- 6278 Oct, [facility] [address] [place] [address], [place] 4380 Oct, [facility] [address] [address]- 4448 Oct, [facility] [address] [place] [address]- 1324 Oct, [facility] [id number] [address]- 4106 Oct, [facility] [address] [address]- 8504 Oct, [facility] [address] 7831 Sep, [facility] [address] 6602 Sep, [facility] [id number] [address]- 8238 Aug, [facility] [address] [address]- 1366 Aug, [facility] [id number] [address]- 7469 Jul, [facility] [address] [address]- 1330 Jul, [facility] [place] [facility] [address] [id number] [place] [address]- 1930 Jul, [facility] [place] [facility] [address] [id number] [place] [address]- 1466 Jul, [facility] [place] [facility] [address] [id number] [place] [address]- 0981 Jul, [facility] [place] [facility] [address] [id number] [place] [address]- 2765 Jul, [facility] [place] [facility] [address] [id number] [place] [address]- 8820 Jul, [facility] [place] [facility] [address] [id number] [place] [address]- 8975 Jul, [facility] [place] [facility] [address] [id number] [place] [address]- 2802 Jul, [facility] [place] [facility] [address] [id number] [place] [address]- 9584 May, [facility] [place] [facility] [address] [id number] [place] [address]- 7049 May, [facility] [place] [facility] [address] [id number] [place] [address]- 7879 Apr, [facility] [place] [facility] [address] [id number] [address]- 4760 Apr, [facility] [place] [facility] [address] [id number], [place] [address]- 7332 Apr, [facility] [place] [facility] [address] [id number] [place] [address]- 1306 Apr, [facility] [place] [facility] [address] [id number] [place] [address]- 1695 Feb, [facility] [place] [facility] [address] [id number] [place] [address]- 8230 Feb, [facility] [place] [facility] [address] [id number] [place] [address]- 2559 Feb, [facility] [place] [facility] [address] [id number] [place] [address]- 3750 Feb, [facility] [place] [facility] [address] [id number] [place] [address]- 8911 Jan, [facility] [place] [facility] [address] [id number] [place] [address]- 9091 Jan, [facility] [place] [facility] [address] [id number] [place] [address]- 7290 Jan, [facility] [place] [facility] [address] [id number] [place] [address]- 1054 Jan, [facility] [place] [facility] [address] [id number] [place] [address]- 5210 Jan, [facility] [place] [facility] [address] [id number] [place] [address]- 5117 Jan, [facility] [place] [facility] [address] [id number] [place] [address]- 7056 December, [facility] [place] [facility] [address] [id number] [place] [address]- 7283 December, [facility] [place] [facility] [address] [id number] [place] [address]- 2371 December, [facility] [place] [facility] [address] [id number] [place] [address]- 7732 December, [facility] [place] [facility] [address] [id number] [place] [address]- 4817 Nov, [facility] [place] [facility] [address] [id number] [place] [address]- 4424 Nov, [facility] [place] [facility] [address] [id number] [place] [address]- 3289 Nov, [facility] [place] [facility] [address] [id number] [place] [address]- 5433 Nov, [facility] [place] [facility] [address] [id number] [place] [address]- 8775 Oct, [facility] [place] [facility] [address] [id number] [place] [address]- 5367 Oct, [facility] [place] [facility] [address] [id number] [place] [address]- 7826 Oct, [facility] [place] [facility] [address] [id number] [place] [address]- 0431 Oct, [facility] [place] [facility] [address] [id number] [place] [address]- 1319 Oct, [facility] [place] [facility] [address] [id number] [place] [address]- 8171 Oct, [facility] [place] [facility] [address] [id number] [place] [address]- 1367 Sep, [facility] [place] [facility] [address] [id number] [place] [address]- 9182 Sep, [facility] [place] [facility] [address] [id number] [place] [address]- 5570 Sep, [facility] [place] [facility] [address] [id number] [place] [address]- 5696 Sep, [facility] [place] [facility] [address] [id number] [place] [address]- 9642 Aug, [facility] [place] [facility] [address] [id number] [place] [address]- 3169 Aug, [facility] [place] [facility] [address] [id number] [place] [address]- 7954 Aug, [facility] [place] [facility] [address] [id number] [place] [address]- 1191 Aug, [facility] [place] [facility] [address] [id number] [place] [address]- 5390 Aug, [facility] [place] [facility] [address] [id number] [place] [address]- 5043 Aug, [facility] [address] [id number] [place] [address]- 7279 Jul, [facility] [place] [facility] [address] [id number] [place] [address]- 7507 Jul, [facility] [address] [id number] [place] [address]- 9069 Jul, [facility] [place] [facility] [address] [id number] [place] [address]- 7465 Jul, [facility] [address] [id number] [place] [address]- 1236 Jun, [facility] [place] [facility] [address] [id number] [place] [address]- 8769 Jun, [facility] [address] [id number] [place] [address]- 0604 May, [facility] [place] [facility] [address] [id number] [place] [address]- 7243 Feb, [facility] [address] [id number] [place] [address]- 5467 Feb, [facility] [place] [facility] [address] [id number] [place] [address]- 1925 Feb, [facility] [place] [facility] [address] [id number] [place] [address]- 7558 Jan, [facility] [place] [facility] [address] [id number], [place] [address]- 7377 Jan, [facility] [place] [facility] [address] [id number] [place] [address]- 0126 Jan, [facility] [place] [facility] [address] [id number] [place] [address]- 3998 December, [facility] [place] [facility] [address] [id number] [place] [address]- 6309 December, [facility] [place] [facility] [address] [id number] [place] [address]- 5073 December, [facility] [address] [id number] [place] [address]- 4186 25 Nov, 2012 [facility] [address] [id number] [place] [address]- 4356 17 Nov, 2012 [facility] [address] [id number] [place] [address]- 4943 16 Nov, 2012 [facility] [address] [id number] [place] [address]- 6266 15 Nov, 2012 [facility] [address] [id number] [place] [address]- 7498 10 Nov, 2012 [facility] [address] [id number] [place] [address]- 4817 09 Nov, 2012 [facility] [address] [id number] [place] [address]- 6751 22 Oct, 2012 [facility] [address] [id number] [place] [address]- 6354 Oct, [facility] [address] [id number] [place] [address]- 3272 Oct, [facility] [address] [id number] [place] [address]- 1810 28 Aug, 2012 [facility] [address] [id number] [place] [address]- 3711 Aug, [facility] [address] [id number] [place] [address]- 3774 17 Aug, 2012 [facility] [place] [facility] [address] [id number] [place] [address]- 9009 14 Jul, 2012 [facility] [place] [facility] [address] [id number] [place] [address]- 3898 14 Jul, 2012 [facility] [place] [facility] [address] [id number] [place] [address]- 7024 Jun, [facility] [place] [facility] [address] [id number] [place] [address]- 9711 Jun, [facility] [place] [facility] [address] [id number] [place] [address] Jun, [facility] [place] [facility] [address] [id number] [place] [address] Jun, [facility] [place] [facility] [address] [id number] [place] [address] May, [facility] [place] [facility] [address] [id number] [place] [address] May, [facility] [place] [facility] [address] [id number] [place] [address] Apr, [facility] [place] [facility] [address] [id number] [place] [address] Apr, [facility] [place] [facility] [address] [id number] [place] [address] Feb, [facility] [place] [facility] [address] [id number] [place] [address] Feb, [facility] [place] [facility] [address] [id number] [place] [address] Nov, [facility] [place] [facility] [address] [id number] [place] [address] Oct, [facility] [place] [facility] [address] [id number], [place] [address] Sep, [facility] [place] [facility] [address] [id number] [place] [address] Sep, [facility] [place] [facility] [address] [id number] [place] [address] Sep, [facility] [place] [facility] [address] [id number] [place] [address] Aug, [facility] [place] [facility] [address] [facility] [id number], [place] [address] 17 Aug, 2011 [facility] [address] [facility] [id number], [place] [address] Aug, [facility] [address] [facility] [id number] [address] Jul, [facility] [id number] [place] [address] 2014 Jul, [facility] [address] [facility] [id number], [place] [address] Jun, [facility] [id number] [place] [id number] Jun, [facility] [facility] [id number] [address] Jun, [facility] [id number] [place] [id number] May, [facility] [id number] [address] May, [facility] [id number] [address] May, [facility] [id number] [address] May, [facility] [id number] [address] May, [facility] [id number] [address] Feb, [facility] [id number] [address] 13 Nov, 2010 [facility] [id number] [address] 14 Oct, 2010 IMMUNIZATIONS No Known Immunizations SOCIAL HISTORY Never Assessed REASON FOR VISIT refill request PLAN OF CARE VITAL SIGNS MEDICATIONS Medication Instructions Dosage Frequency Start Date End Date Duration Status Pen Mobile 31G X 8 MM subcutaneously 5 times per day 1 needle Active RESULTS No Results PROCEDURES No Known procedures INSTRUCTIONS MEDICATIONS ADMINISTERED No Known Medications MEDICAL (GENERAL) HISTORY Type Description Date Medical History hypertension Medical History hyperlipidemia Medical History type II diabetes Medical History Arthritis-knees and hips Medical History stroke-05/2011 Medical History leukemia (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
--- OUTSIDE RECORDS SUMMARY | 2018-06-03 14:16 | XMS REPORT ---
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 Active 146764275 Problem Essential hypertension I10 Active 57890819 Problem Type 2 diabetes mellitus with diabetic neuropathy E11.40 Active 88021383 Problem Other obesity due to excess calories E66.09 Active 697896682 Problem Chronic idiopathic constipation K59.04 Active 34358828 Problem 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 Active 59403159 Problem Mixed hyperlipidemia E78.2 Active 741509731 Problem Osteoarthritis of right knee M17.9 Active 706840992 Problem History of renal failure Z87.448 Active 655009005 ALLERGIES Substance Reaction Event Type Date Status Milk of Magnesia Unknown Drug Allergy Feb, Active Maalox Unknown Drug Allergy Feb, Active ENCOUNTERS Encounter Location Date Diagnosis [facility] [id number] [place] [address] 11059- 9854 Mar, Essential hypertension I10 and Type 2 diabetes mellitus with diabetic neuropathy E11.40 [facility] [id number] [place] [address] 77642- 2215 Mar, [facility] [id number] [place] [address] 21280- 3388 Mar, Essential hypertension I10 [facility] [id number] [place] [address] 06897- 8609 Mar, Type 2 diabetes mellitus with diabetic neuropathy E11.40 [facility] [address] [id number] [id number] Feb, Dental caries K02.9 [place] [id number] [place] [address] 97366- 9209 Feb, [place] [id number] [place] [address] 44580- 1604 Feb, Type 2 diabetes mellitus with diabetic neuropathy E11.40 ; Essential hypertension I10 ; Mixed hyperlipidemia E78.2 ; History of CVA ( cerebrovascular accident) Z86.73 ; Other obesity due to excess calories E66.09 and Body mass index (BMI) of 31.0-31.9 in adult Z68.31 [facility] [id number] [place] [address] [id number] Jan, Dental examination Z01.20 [place] [id number] [place] [address] 52857- 0159 Jan, Type 2 diabetes mellitus with diabetic neuropathy E11.40 [facility] [address] [id number] Nov, Dental caries K02.9 [place] [id number] [place] [address] 03544- 5708 Nov, Type 2 diabetes mellitus with diabetic neuropathy E11.40 [place] [id number] [place] [address] 83648- 6263 Nov, Medicare annual wellness visit, initial Z00.00 ; Type 2 diabetes mellitus with diabetic neuropathy E11.40 ; 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 ; 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 ; Essential hypertension I10 ; Mixed hyperlipidemia E78.2 ; History of CVA (cerebrovascular accident) Z86.73 ; History of renal failure Z87.448 ; Osteoarthritis of right knee M17.9 and Encounter for immunization Z23 [facility] [id number] [place] [address] [id number] Nov, Dental examination Z01.20 [facility] [id number] [place] [address] 73984- 3540 Oct, Type 2 diabetes mellitus with diabetic neuropathy E11.40 ; halfway current use of insulin Z79.4 ; [facility] C[facility] ; History of renal failure Z87.448 ; Mild single current episode of major depressive disorder F32.0 ; Essential hypertension I10 ; Mixed hyperlipidemia E78.2 and Chronic idiopathic constipation K59.04 [facility] [id number] [place] [address] 85476 -1894 15 Oct, 2017 Type 2 diabetes mellitus with diabetic neuropathy E11.40 ; Dental caries extending into pulp K02.9 ; Nausea and vomiting, intractability of vomiting not specified, unspecified vomiting type R11.2 and Chronic idiopathic constipation K59.04 [facility] [address] 06728- 6838 Oct, Type 2 diabetes mellitus with diabetic neuropathy E11.40 [facility] [address] 06361- 3699 Aug, [place] [address] 00525- 2869 Jul, Type 2 diabetes mellitus with diabetic neuropathy E11.40 [facility] [address] 81263 -6192 Jul, Muscle spasm of back M62.830 [place] [address] 43728- 4049 Jun, Type 2 diabetes mellitus with diabetic neuropathy E11.40 ; 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 ; [facility] C92.11 ; History of renal failure Z87.448 and Mild single current episode of major depressive disorder F32.0 [place] [address] 24055- 8245 Mar, Type 2 diabetes mellitus with diabetic neuropathy E11.40 ; 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 ; [facility] C92.11 ; History of renal failure Z87.448 ; Mild single current episode of major depressive disorder F32.0 ; Pain in right knee M25.561 and Encounter for immunization Z23 [place] [address] 67299- 7282 Feb, Bloody discharge from right nipple N64.52 [facility] [address] [address] 0389 Feb, [facility] [address] [address] 3455 Feb, [facility] [address] [address] 7365 December, Type 2 diabetes mellitus with diabetic neuropathy E11.40 [place] [address] [id number] [address] 3493 December, Type 2 diabetes mellitus with diabetic neuropathy E11.40 ; halfway current use of insulin Z79.4 ; [facility] C92.11 ; History of renal failure Z87.448 ; Mild single current episode of major depressive disorder F32.0 and Pain in right knee M25.561 [place] [address] [place] [address] 24853- 7965 Nov, Type 2 diabetes mellitus with diabetic neuropathy E11.40 ; halfway current use of insulin Z79.4 ; 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 ; History of renal failure Z87.448 ; Mild single current episode of major depressive disorder F32.0 and Pain in right knee M25.561 [place] [id number] [address] 0109 16 Sep, 2016 Osteoarthritis of right knee M17.9 [place] [id number] [address] 4429 08 Sep, 2016 Type 2 diabetes mellitus with diabetic neuropathy E11.40 ; 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 ; 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 ; History of renal failure Z87.448 ; Mild single current episode of major depressive disorder F32.0 and Pain in right knee M25.561 [place] [id number] [address]- 5755 Aug, Type 2 diabetes mellitus with diabetic neuropathy E11.40 [place] [address] [address] 5254 Jul, Type 2 diabetes mellitus with diabetic neuropathy E11.40 ; halfway current use of insulin Z79.4 ; Chronic myeloid leukemia in [facility] C92.11 ; History of renal failure Z87.448 and Mild single current episode of major depressive disorder F32.0 [facility] [address] [place] [address] 57511- 8329 Jun, [facility] [id number] [place] [address] 11398- 2074 May, Type 2 diabetes mellitus with diabetic neuropathy E11.40 [place] [id number] [place] [address] 92594- 5548 May, Tendonitis M77.9 [place] [id number] [place] [address] 70879- 5888 May, Type 2 diabetes mellitus with diabetic neuropathy E11.40 ; halfway current use of insulin Z79.4 ; Chronic myeloid leukemia in [facility] C92.11 ; History of renal failure Z87.448 and Mild single current episode of major depressive disorder F32.0 [place] [address] [place] [address] 21713- 8436 Apr, Type 2 diabetes mellitus with diabetic neuropathy E11.40 [place] [address] [address]- 9637 Apr, Type 2 diabetes mellitus with diabetic neuropathy E11.40 ; halfway current use of insulin Z79.4 ; Chronic myeloid leukemia in [facility] C92.11 ; History of renal failure Z87.448 ; Mild single current episode of major depressive disorder F32.0 and Right foot pain M79.671 [place] [address] [place] [address] 16636- 0729 Feb, History of renal failure Z87.448 [facility] [address] [address]- 1232 Feb, Type 2 diabetes mellitus with diabetic neuropathy E11.40 ; halfway current use of insulin Z79.4 ; Chronic myeloid leukemia in [facility] C92.11 ; History of renal failure Z87.448 and Mild single current episode of major depressive disorder F32.0 [place] [address] [place] [address] 31907- 1532 Feb, 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 [place] [id number] [place] [address] 35058- 7280 Feb, Type 2 diabetes mellitus with diabetic neuropathy E11.40 ; 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 ; Chronic myeloid leukemia in [facility] C92.11 ; Essential hypertension I10 ; Mixed hyperlipidemia E78.2 ; History of CVA (cerebrovascular accident) Z86.73 ; History of renal failure Z87.448 and Mild single current episode of major depressive disorder F32.0 [place] [address] [place] [address] 78378- 9259 Jan, Type 2 diabetes mellitus with diabetic neuropathy E11.40 ; 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 ; Chronic myeloid leukemia in [place] 651222.11 ; Essential hypertension I10 ; Mixed hyperlipidemia E78.2 ; History of CVA (cerebrovascular accident) Z86.73 and History of renal failure Z87.448 [place] [address] [place] [address] 64603- 1576 Jan, [facility] [address] [place] [address] 51000 -0393 Jan, Cellulitis of hand, left L03.114 [place] [id number] [place] [address] 04901- 6895 Nov, Osteoarthritis of right knee M17.9 [place] [address] [place] [address] 85895- 5316 Sep, Type 2 diabetes mellitus with diabetic neuropathy E11.40 ; halfway current use of insulin Z79.4 ; Chronic myeloid leukemia in [facility] C92.11 ; Essential hypertension I10 ; Mixed hyperlipidemia E78.2 and History of CVA (cerebrovascular accident) Z86.73 [place] [address] [place] [address] 69477- 3316 Aug, Osteoarthritis of right knee M17.9 [place] [id number] [place] [address] 71931- 0381 Aug, Pain in right knee M25.561 [place] [address] 92457- 9757 Jul, [place] [id number] [place] [address] 35862- 5665 Jun, [place] [address] 54102- 9498 Jun, Axillary lump, right R22.31 [place] [address] [place] [address] 69081- 2233 Jun, Type 2 diabetes mellitus with diabetic neuropathy E11.40 ; Encounter for immunization Z23 ; 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 ; 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 ; Essential hypertension I10 ; Mixed hyperlipidemia E78.2 ; History of CVA (cerebrovascular accident) Z86.73 and Axillary lump, right R22.31 [place] [id number] [place] [address] 46728- 9296 Mar, Hyperlipidemia 272.4 [place] [id number] [place] [address] 08503- 3883 Mar, Right knee pain 719.46 [place] [address] [place] [address] 23124- 3596 Mar, Rotator cuff impingement syndrome of left shoulder 726.10 [place] [id number] [place] [address] 54429- 8368 Feb, [place] [id number] [place] [address] 36312- 6921 Feb, Chronic myeloid leukemia, without mention of having achieved remission 205.10 ; Essential hypertension, malignant 401.0 ; Unspecified hereditary and idiopathic peripheral neuropathy 356.9 ; Diabetes mellitus type 2, controlled, with complications 250.90 ; Hyperlipidemia 272.4 and Pain, joint, shoulder, left 719.41 [facility] [address] [address]- 3666 Jan, [facility] [address] [address]- 9617 Nov, [facility] [address] [id number] [address]- 2643 Nov, [facility] [address] [address]- 8341 Oct, [facility] [address] [address]- 7618 Oct, [facility] [address] [address]- 9311 Oct, [facility] [address] [address]- 6615 Oct, [facility] [address] [address]- 7497 Oct, [facility] [address] [address]- 1723 Oct, [facility] [address] [address]- 7776 Sep, [facility] [address] [address]- 0213 Sep, [facility] [address] [address]- 7616 Aug, [facility] [address] [address]- 6446 Aug, [facility] [id number] [address]- 3686 Jul, [facility] [id number] [address]- 8794 Jul, [facility] [address] [id number] [place] [address]- 0965 Jul, [facility] [place] [facility] [address] [id number] [place] 8496 Jul, [facility] [address] [id number] [place] [address]- 4396 Jul, [facility] [place] [facility] [address] [id number] [place] 0700 Jul, [facility] [place] [facility] [address] [id number] [place] [address]- 6033 Jul, [facility] [place] [facility] [address] [id number] [place] 0073 Jul, [facility] [place] [facility] [address] [id number] [place] [address]- 0312 Jul, [facility] [place] [facility] [address] [id number] [place] [address]- 8938 May, [facility] [place] [facility] [address] [id number] [place] [address]- 4950 May, [facility] [place] [facility] [address] [id number] [place] [address]- 0883 Apr, [facility] [place] [facility] [address] [id number] [place] [address] 2544 Apr, [facility] [place] [facility] [address] [id number] [place] [address]- 8230 Apr, [facility] [place] [facility] [address] [id number] [place] [address]- 8633 Apr, [facility] [place] [facility] [address] [id number] [place] [address]- 5035 Feb, [facility] [place] [facility] [address] [id number] [place] [address]- 5051 Feb, [facility] [place] [facility] [address] [id number] [place] [address]- 6200 Feb, [facility] [place] [facility] [address] [id number] [place] [address]- 6597 Feb, [facility] [place] [facility] [address] [id number] [place] [address]- 7027 Jan, [facility] [place] [facility] [address] [id number] [place] [address]- 7536 Jan, [facility] [place] [facility] [address] [id number] [place] [address]- 2186 Jan, [facility] [place] [facility] [address] [id number] [place] [address]- 9581 Jan, [facility] [place] [facility] [address] [id number] [place] [address]- 1363 Jan, [facility] [place] [facility] [address] [id number] [place] [address]- 8931 Jan, [facility] [place] [facility] [address] [id number] [place] [address]- 7128 December, [facility] [place] [facility] [address] [id number] [place] [address]- 6997 December, [facility] [place] [facility] [address] [id number] [place] [address]- 7796 December, [facility] [place] [facility] [address] [id number] [place] [address]- 0237 December, [facility] [place] [facility] [address] [id number] [place] [address]- 0801 Nov, [facility] [place] [facility] [address] [id number] [place] [address]- 9093 Nov, [facility] [place] [facility] [address] [id number] [place] [address]- 5949 Nov, [facility] [place] [facility] [address] [id number], [place] [address]- 4840 Nov, [facility] [address] [id number] [place] [address]- 3715 Oct, [facility] [place] [facility] [address] [id number] [place] [address]- 2120 Oct, [facility] [place] [facility] [address] [id number] [place] [address]- 7436 Oct, [facility] [place] [facility] [address] [id number] [place] [address]- 4468 Oct, [facility] [place] [facility] [address] [id number] [place] [address]- 4383 Oct, [facility] [place] [facility] [address] [id number] [place] [address]- 2665 Oct, [facility] [place] [facility] [address] [id number] [place] [address]- 4425 Sep, [facility] [place] [facility] [address] [id number] [place] [address]- 0543 Sep, [facility] [place] [facility] [address] [id number] [place] [address]- 7125 Sep, [facility] [place] [facility] [address] [facility] [id number] [place] [address]- 5911 Sep, [facility] [place] [facility] [address] [facility] [id number] [place] [address]- 2869 Aug, [facility] [place] [facility] [address] [id number] [place] [address]- 9387 Aug, [facility] [place] [facility] [address] [id number] [place] [address]- 9939 Aug, [facility] [place] [facility] [address] [id number] [place] [address]- 3622 Aug, [facility] [place] [facility] [address] [id number], [place] [address]- 9585 Aug, [facility] [place] [facility] [address] [id number] [place] [address]- 7680 Aug, [facility] [place] [facility] [address] [id number] [place] [address]- 3075 Jul, [facility] [place] [facility] [address] [id number] [place] [address]- 9047 Jul, [facility] [place] [facility] [address] [id number] [place] [address]- 8781 Jul, [facility] [place] [facility] [address] [id number] [place] [address]- 4393 Jul, [facility] [place] [facility] [address] [id number] [place] [address]- 3530 Jun, [facility] [place] [facility] [address] [id number] [place] [address]- 2982 Jun, [facility] [place] [facility] [address] [id number] [place] [address]- 1936 May, [facility] [place] [facility] [address] [id number] [place] [address]- 8473 Feb, [facility] [place] [facility] [address] [id number] [place] [address]- 1089 Feb, [facility] [place] [facility] [address] [id number] [place] [address]- 0970 Feb, [facility] [place] [facility] [address] [id number] [place] [address]- 1584 Jan, [facility] [place] [facility] [address] [id number] [place] [address]- 7781 Jan, [facility] [place] [facility] [address] [id number] [place] [address]- 2337 Jan, [facility] [place] [facility] [address] [id number] [place] [address]- 5428 December, [facility] [place] [facility] [address] [id number] [place] [address]- 7926 December, [facility] [address] [id number] [place] [address]- 0784 December, [facility] [address] [id number] [place] [address]- 2943 Nov, [facility] [address] [id number] [place] [address]- 9398 17 Nov, 2012 [facility] [address] [id number] [place] [address]- 9665 16 Nov, 2012 [facility] [address] [id number] [place] [address]- 2916 15 Nov, 2012 [facility] [address] [id number] [place] [address]- 2039 Nov, [facility] [address] [id number] [place] [address]- 7003 Nov, [facility] [address] [id number] [place] [address]- 1085 Oct, [facility] [address] [id number] [place] [address]- 5629 Oct, [facility] [address] [id number] [place] [address]- 1169 Oct, [facility] [address] [id number] [place] [address]- 1079 Aug, [facility] [place] [facility] [address] [id number] [place] [address]- 5865 Aug, [facility] [place] [facility] [address] [id number] [place] [address]- 0121 Aug, [facility] [place] [facility] [address] [id number] [place] [address]- 1873 Jul, [facility] [place] [facility] [address] [id number] [place] [address]- 4199 Jul, [facility] [address] [id number] [place] [address]- 0817 Jun, [facility] [address] [id number] [place] [address]- 5235 Jun, [facility] [place] [facility] [address] [id number] [place] [address]- 7723 Jun, [facility] [address] [id number] [place] [address]- 5922 Jun, [facility] [place] [facility] [address] [id number] [place] [address]- 3850 May, [facility] [address] [id number] [place] [address] May, [facility] [address] [id number] [place] [address] Apr, [facility] [place] [facility] [address] [facility] [id number] [place] [address] Apr, [facility] [address] [id number] [place] [address] Feb, [facility] [place] [facility] [address] [facility] [id number] [place] [address] Feb, [facility] [address] [facility] [id number] [place] [address] Nov, [facility] [place] [facility] [address] [facility] [id number] [place] [address] Oct, [facility] [place] [facility] [address] [id number] [place] [address] Sep, [facility] [place] [facility] [address] [id number] [place] [address] Sep, [facility] [place] [facility] [address] [facility] [id number] [place] [address] Sep, [facility] [place] [facility] [address] [facility] [id number] [place] [address] Aug, [facility] [address] [id number], [place] [address] 17 Aug, 2011 [facility] [address] [id number] [place] [address] Aug, [facility] [address] [facility] [id number], [place] [address] Jul, [facility] [address] [id number], [place] [address] Jul, [facility] [address] [id number] [place] [address] Jun, [facility] [address] [facility] [id number], [place] [address] Jun, [facility] [address] [facility] [id number] [place] [address] Jun, [facility] [address] [facility] [id number], [place] [address] May, [facility] [address] [facility] [id number], [place] [address] May, [facility] [address] [facility] [id number], [place] [address] May, [facility] [address] [facility] [id number], [place] [address] May, [facility] [address] [facility] [id number], [place] [address] May, [facility] [address] [facility] [id number], [place] [address] Feb, [facility] [address] [facility] [id number][place] [address] 13 Nov, 2010 [facility] [address] [facility] [id number], [place] [address] 14 Oct, 2010 IMMUNIZATIONS No Known Immunizations SOCIAL HISTORY Never Assessed REASON FOR VISIT TE 45Minute PLAN OF CARE Activity Details Follow Up prn Reason:TE'S #13,14,15 VITAL SIGNS Height 66 in 2018-02-27 Blood pressure systolic 106 mmHg 2018-02-27 Blood pressure diastolic 60 mmHg 2018-02-27 MEDICATIONS Medication Instructions Dosage Frequency Start Date End Date Duration Status NovoLog Flexpen 100 UNIT/ML Subcutaneous 2 times a day 30 units 12h 12 months Active Glimepiride 2 MG Orally 2 times a day TAKE ONE TABLET BY MOUTH TWICE DAILY 12h 30 Active Rusty Contour Monitor w/Device as directed Apr, Active Pen [place] 31G X 8 MM 1 Active Farxiga 10 mg Orally Once a day 1 tablet 24h Oct, Aug, 30 day(s) Active Atorvastatin Calcium 40 mg Orally Once a day TAKE ONE TABLET BY MOUTH ONCE DAILY 24h 90 Active Metoprolol Succinate ER 25 MG Orally 2 times a day TAKE ONE-HALF TABLET BY MOUTH TWICE DAILY 12h 30 Active Rusty Contour Next EZ strips intradermal tid and prn tid and prn Active BD Pen Needle Ultrafine 29G X 12.7MM subcutaneously 5 times per day Inject December, Active Lisinopril 40 mg Orally Once a day 1 tablet 24h 90 days Active Aspirin 81 MG Orally Once a day 1 tablet 24h 90 days Active Contour Blood Glucose System Test Strips 24h Active Levemir FlexTouch 100 UNIT/ML Subcutaneous 2 times a day per insulin sliding scale protocol 40 units 12 months Active Clopidogrel Bisulfate 75 MG TAKE ONE TABLET BY MOUTH ONCE DAILY 30 Active Plavix 75 MG Orally Once a day 1 tablet 24h 30 days Active RESULTS No Results PROCEDURES Procedure Date Ordered Result Body Site EXTRAC ERUPTED TOOTH/EXPOSED ROOT February 27, 2018 INSTRUCTIONS MEDICATIONS ADMINISTERED No Known Medications MEDICAL (GENERAL) HISTORY Type Description Date Medical History hypertension Medical History hyperlipidemia Medical History type II diabetes Medical History Arthritis-knees and hips Medical History stroke-05/2011 Medical History 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
--- OUTSIDE RECORDS SUMMARY | 2018-06-03 14:17 | XMS REPORT ---
Author Author ANTONINO WALLER Organization [facility] Address [address] [place] [address] Care Team Providers Care Inspection Supervisor Name Role Phone CHRISTINANGELAANTONINO Unavailable PROBLEMS Type Condition ICD9-CM Code LTT92-DG Code Onset Dates Condition Status SNOMED Code Problem History of CVA (cerebrovascular accident) Z86.73 Active 648676682 Problem intermediate current use of insulin Z79.4 Active 501363014 Problem Essential hypertension I10 Active 19343136 Problem Type 2 diabetes mellitus with diabetic neuropathy E11.40 Active 23953017 Problem Other obesity due to excess calories E66.09 Active 164726584 Problem Chronic idiopathic constipation K59.04 Active 92411147 Problem 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 Active 93242296 Problem Mixed hyperlipidemia E78.2 Active 534101626 Problem Osteoarthritis of right knee M17.9 Active 460384360 Problem History of renal failure Z87.448 Active 867857403 ALLERGIES No Information ENCOUNTERS Encounter Location Date Diagnosis [facility] [id number] [place] [address] 77361- 1337 Mar, Essential hypertension I10 and Type 2 diabetes mellitus with diabetic neuropathy E11.40 [facility] [id number] [place] [address] 80812- 4604 Mar, [facility] [id number] [place] [address] 41453- 2991 Mar, Essential hypertension I10 [facility] [id number] [place] [address] 91749- 7752 Mar, Type 2 diabetes mellitus with diabetic neuropathy E11.40 [facility] [id number] [place] [address] [id number] Feb, Dental caries K02.9 [facility] [address] [place] [address] 6259 Feb, [place] [address] 95[address]- 8414 Feb, Type 2 diabetes mellitus with diabetic neuropathy E11.40 ; Essential hypertension I10 ; Mixed hyperlipidemia E78.2 ; History of CVA ( cerebrovascular accident) Z86.73 ; Other obesity due to excess calories E66.09 and Body mass index (BMI) of 31.0-31.9 in adult Z68.31 [facility] [address] [id number] Jan, Dental examination Z01.20 [place] [address] 64557- 9631 Jan, Type 2 diabetes mellitus with diabetic neuropathy E11.40 [facility] [address] [id number] Nov, Dental caries K02.9 [place] [address] 46476- 8062 Nov, Type 2 diabetes mellitus with diabetic neuropathy E11.40 [place] [id number] [place] [address] 77212- 2806 Nov, Medicare annual wellness visit, initial Z00.00 ; Type 2 diabetes mellitus with diabetic neuropathy E11.40 ; joint terminal attack controller current use of insulin Z79.4 ; 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 ; Essential hypertension I10 ; Mixed hyperlipidemia E78.2 ; History of CVA (cerebrovascular accident) Z86.73 ; History of renal failure Z87.448 ; Osteoarthritis of right knee M17.9 and Encounter for immunization Z23 [facility] [id number] [place] [address] [id number] Nov, Dental examination Z01.20 [facility] [address] 03774180- 8634 Oct, Type 2 diabetes mellitus with diabetic neuropathy E11.40 ; joint terminal attack controller current use of insulin Z79.4 ; 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 ; History of renal failure Z87.448 ; Mild single current episode of major depressive disorder F32.0 ; Essential hypertension I10 ; Mixed hyperlipidemia E78.2 and Chronic idiopathic constipation K59.04 [facility] [address] [place] [address] 37616 -7311 15 Oct, 2017 Type 2 diabetes mellitus with diabetic neuropathy E11.40 ; Dental caries extending into pulp K02.9 ; Nausea and vomiting, intractability of vomiting not specified, unspecified vomiting type R11.2 and Chronic idiopathic constipation K59.04 [place] [id number] [place] [address] 72158- 4986 Oct, Type 2 diabetes mellitus with diabetic neuropathy E11.40 [place] [id number] [place] [address] 73390- 9455 Aug, [place] [address] 17677- 8076 Jul, Type 2 diabetes mellitus with diabetic neuropathy E11.40 [facility] IN [facility] [id number] [place] [address] 71561 -9191 Jul, Muscle spasm of back M62.830 [place] [id number] [place] [address] 00817- 1384 Jun, Type 2 diabetes mellitus with diabetic neuropathy E11.40 ; joint terminal attack controller current use of insulin Z79.4 ; 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 ; History of renal failure Z87.448 and Mild single current episode of major depressive disorder F32.0 [place] [id number] [place] [address] 85849- 8096 Mar, Type 2 diabetes mellitus with diabetic neuropathy E11.40 ; intermediate current use of insulin Z79.4 ; 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 ; History of renal failure Z87.448 ; Mild single current episode of major depressive disorder F32.0 ; Pain in right knee M25.561 and Encounter for immunization Z23 [place] [id number] [place] [address] 20504- 5150 Feb, Bloody discharge from right nipple N64.52 [facility] [id number] [address]- 7608 Feb, [place] [address] [address]- 8674 Feb, [facility] [address] [address]- 0814 December, Type 2 diabetes mellitus with diabetic neuropathy E11.40 [place] [address] [address]- 9749 December, Type 2 diabetes mellitus with diabetic neuropathy E11.40 ; joint terminal attack controller current use of insulin Z79.4 ; [facility] C92.11 ; History of renal failure Z87.448 ; Mild single current episode of major depressive disorder F32.0 and Pain in right knee M25.561 [place] [address] [address]- 8873 Nov, Type 2 diabetes mellitus with diabetic neuropathy E11.40 ; intermediate current use of insulin Z79.4 ; 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 ; History of renal failure Z87.448 ; Mild single current episode of major depressive disorder F32.0 and Pain in right knee M25.561 [place] [address] [place] [id number] [address]- 5454 16 Sep, 2016 Osteoarthritis of right knee M17.9 [place] [address] [address]- 8178 08 Sep, 2016 Type 2 diabetes mellitus with diabetic neuropathy E11.40 ; joint terminal attack controller current use of insulin Z79.4 ; 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 ; History of renal failure Z87.448 ; Mild single current episode of major depressive disorder F32.0 and Pain in right knee M25.561 [place] [address] [place] [id number] [address]- 1746 Aug, Type 2 diabetes mellitus with diabetic neuropathy E11.40 [place] [id number] [place] [address] 77888- 3173 Jul, Type 2 diabetes mellitus with diabetic neuropathy E11.40 ; intermediate current use of insulin Z79.4 ; Chronic myeloid leukemia in [facility] C92.11 ; History of renal failure Z87.448 and Mild single current episode of major depressive disorder F32.0 [facility] [id number] [place] [address] 72115- 1597 Jun, [facility] [id number] [place] [address] 18507- 3503 May, Type 2 diabetes mellitus with diabetic neuropathy E11.40 [facility] [address] 22590- 3900 May, Tendonitis M77.9 [facility] [id number] [place] [address] 05976- 0409 May, Type 2 diabetes mellitus with diabetic neuropathy E11.40 ; joint terminal attack controller current use of insulin Z79.4 ; Chronic myeloid leukemia in [facility] C92.11 ; History of renal failure Z87.448 and Mild single current episode of major depressive disorder F32.0 [facility] [id number] [place] [address] 78810- 2450 Apr, Type 2 diabetes mellitus with diabetic neuropathy E11.40 [facility] [id number] [place] [address] 10726- 4406 Apr, Type 2 diabetes mellitus with diabetic neuropathy E11.40 ; joint terminal attack controller current use of insulin Z79.4 ; Chronic myeloid leukemia in [facility] C92.11 ; History of renal failure Z87.448 ; Mild single current episode of major depressive disorder F32.0 and Right foot pain M79.671 [facility] [id number] [place] [address] 78070- 6146 Feb, History of renal failure Z87.448 [facility] [id number] [place] [address] 72340- 7820 Feb, Type 2 diabetes mellitus with diabetic neuropathy E11.40 ; joint terminal attack controller current use of insulin Z79.4 ; Chronic myeloid leukemia in [place]. 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 [place] [id number] [place] [address] 56459- 2383 Feb, Type 2 diabetes mellitus with diabetic neuropathy E11.40 ; joint terminal attack controller current use of insulin Z79.4 ; Chronic myeloid leukemia in [place] 928902.11 ; Essential hypertension I10 ; Mixed hyperlipidemia E78.2 ; History of CVA (cerebrovascular accident) Z86.73 ; History of renal failure Z87.448 and Mild single current episode of major depressive disorder F32.0 [place] [id number] [place] [address] 05408- 5197 Jan, Type 2 diabetes mellitus with diabetic neuropathy E11.40 ; joint terminal attack controller current use of insulin Z79.4 ; Chronic myeloid leukemia in [place]. ; Essential hypertension I10 ; Mixed hyperlipidemia E78.2 ; History of CVA (cerebrovascular accident) Z86.73 and History of renal failure Z87.448 [place] [id number] [place] [address] 55498- 1685 Jan, [facility] [id number] [place] [address] 67517 -1396 Jan, Cellulitis of hand, left L03.114 [place] [id number] [place] [address] 93108- 7514 Nov, Osteoarthritis of right knee M17.9 [place] [id number] [place] [address] 36306- 1125 Sep, Type 2 diabetes mellitus with diabetic neuropathy E11.40 ; intermediate current use of insulin Z79.4 ; Chronic myeloid leukemia in [place] 9[address]. ; Essential hypertension I10 ; Mixed hyperlipidemia E78.2 and History of CVA (cerebrovascular accident) Z86.73 [place] [id number] [place] [address] 82129- 0740 Aug, Osteoarthritis of right knee M17.9 [place] [address] 79705- 9246 Aug, Pain in right knee M25.561 [place] [id number] [place] [address] 52008- 6297 Jul, [place] [address] 52574- 6172 Jun, [place] [address] 50892- 6687 Jun, Axillary lump, right R22.31 [place] [id number] [place] [address] 73989- 3981 Jun, Type 2 diabetes mellitus with diabetic neuropathy E11.40 ; Encounter for immunization Z23 ; intermediate current use of insulin Z79.4 ; 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 ; Essential hypertension I10 ; Mixed hyperlipidemia E78.2 ; History of CVA (cerebrovascular accident) Z86.73 and Axillary lump, right R22.31 [place] [id number] [place] [address] 22348- 5848 Mar, Hyperlipidemia 272.4 [place] [id number] [place] [address] 52026- 7503 Mar, Right knee pain 719.46 [place] [id number] [place] [address] 59171- 9052 Mar, Rotator cuff impingement syndrome of left shoulder 726.10 [place] [id number] [place] [address] 79382- 2988 Feb, [place] [id number] [place] [address] 01445- 6765 Feb, Chronic myeloid leukemia, without mention of having achieved remission 205.10 ; Essential hypertension, malignant 401.0 ; Unspecified hereditary and idiopathic peripheral neuropathy 356.9 ; Diabetes mellitus type 2, controlled, with complications 250.90 ; Hyperlipidemia 272.4 and Pain, joint, shoulder, left 719.41 [facility] [address] [place] [address]- 5532 Jan, [facility] [address] [facility] [id number] [place] [address]- 4824 14 Nov, 2014 [facility] [address] [facility] [id number] [place] [address] 43805- 4076 Nov, [facility] [address] [facility] [id number] [place] [address]- 6260 Oct, [facility] [address] [place] [address], [place] 0338 Oct, [facility] [address] [address]- 4594 Oct, [facility] [address] [place] [address]- 7435 Oct, [facility] [id number] [address]- 7649 Oct, [facility] [address] [address]- 2182 Oct, [facility] [address] 4311 Sep, [facility] [address] 4569 Sep, [facility] [id number] [address]- 0057 Aug, [facility] [address] [address]- 1306 Aug, [facility] [id number] [address]- 5510 Jul, [facility] [address] [address]- 8934 Jul, [facility] [place] [facility] [address] [id number] [place] [address]- 3695 Jul, [facility] [place] [facility] [address] [id number] [place] [address]- 5426 Jul, [facility] [place] [facility] [address] [id number] [place] [address]- 2831 Jul, [facility] [place] [facility] [address] [id number] [place] [address]- 9079 Jul, [facility] [place] [facility] [address] [id number] [place] [address]- 8642 Jul, [facility] [place] [facility] [address] [id number] [place] [address]- 3058 Jul, [facility] [place] [facility] [address] [id number] [place] [address]- 5241 Jul, [facility] [place] [facility] [address] [id number] [place] [address]- 2739 May, [facility] [place] [facility] [address] [id number] [place] [address]- 4871 May, [facility] [place] [facility] [address] [id number] [place] [address]- 3635 Apr, [facility] [place] [facility] [address] [id number] [address]- 4023 Apr, [facility] [place] [facility] [address] [id number] [address]- 9334 Apr, [facility] [place] [facility] [address] [id number] [place] [address]- 4536 Apr, [facility] [place] [facility] [address] [id number] [place] [address]- 6922 Feb, [facility] [place] [facility] [address] [id number] [place] [address]- 0895 Feb, [facility] [place] [facility] [address] [id number] [place] [address]- 4703 Feb, [facility] [place] [facility] [address] [id number] [place] [address]- 7080 Feb, [facility] [place] [facility] [address] [id number] [place] [address]- 6111 Jan, [facility] [place] [facility] [address] [id number] [place] [address]- 2658 Jan, [facility] [place] [facility] [address] [id number] [place] [address]- 8616 Jan, [facility] [place] [facility] [address] [id number] [place] [address]- 3519 Jan, [facility] [place] [facility] [address] [id number] [place] [address]- 9055 Jan, [facility] [place] [facility] [address] [id number] [place] [address]- 8302 Jan, [facility] [place] [facility] [address] [id number] [place] [address]- 7773 December, [facility] [place] [facility] [address] [id number] [place] [address]- 5407 December, [facility] [place] [facility] [address] [id number] [place] [address]- 0520 December, [facility] [place] [facility] [address] [id number] [place] [address]- 4241 December, [facility] [place] [facility] [address] [id number] [place] [address]- 4163 Nov, [facility] [place] [facility] [address] [id number] [place] [address]- 5415 Nov, [facility] [place] [facility] [address] [id number] [place] [address]- 8426 Nov, [facility] [place] [facility] [address] [id number] [place] [address]- 3489 Nov, [facility] [place] [facility] [address] [id number] [place] [address]- 4754 Oct, [facility] [place] [facility] [address] [id number] [place] [address]- 2799 Oct, [facility] [place] [facility] [address] [id number] [place] [address]- 3746 Oct, [facility] [place] [facility] [address] [id number] [place] [address]- 9669 Oct, [facility] [place] [facility] [address] [id number] [place] [address]- 1591 Oct, [facility] [place] [facility] [address] [id number] [place] [address]- 0697 Oct, [facility] [place] [facility] [address] [id number] [place] [address]- 7953 Sep, [facility] [place] [facility] [address] [id number] [place] [address]- 9298 Sep, [facility] [place] [facility] [address] [id number] [place] [address]- 5476 Sep, [facility] [place] [facility] [address] [id number] [place] [address]- 8816 Sep, [facility] [place] [facility] [address] [id number] [place] [address]- 0816 Aug, [facility] [place] [facility] [address] [id number] [place] [address]- 3385 Aug, [facility] [place] [facility] [address] [id number] [place] [address]- 8747 Aug, [facility] [place] [facility] [address] [id number] [place] [address]- 7045 Aug, [facility] [place] [facility] [address] [id number] [place] [address]- 4746 Aug, [facility] [place] [facility] [address] [id number] [place] [address]- 8909 Aug, [facility] [address] [id number] [place] [address]- 5183 Jul, [facility] [place] [facility] [address] [id number] [place] [address]- 9134 Jul, [facility] [address] [id number] [place] [address]- 7709 Jul, [facility] [place] [facility] [address] [id number] [place] [address]- 3427 Jul, [facility] [address] [id number] [place] [address]- 1356 Jun, [facility] [place] [facility] [address] [id number] [place] [address]- 2524 Jun, [facility] [address] [id number] [place] [address]- 8232 May, [facility] [place] [facility] [address] [id number] [place] [address]- 0164 Feb, [facility] [address] [id number] [place] [address]- 2928 Feb, [facility] [place] [facility] [address] [id number] [place] [address]- 8688 Feb, [facility] [place] [facility] [address] [id number] [place] [address]- 4679 Jan, [facility] [place] [facility] [address] [id number] [place] [address]- 9352 Jan, [facility] [place] [facility] [address] [id number] [place] [address]- 4106 Jan, [facility] [place] [facility] [address] [id number] [place] [address]- 7621 December, [facility] [place] [facility] [address] [id number] [place] [address]- 5525 December, [facility] [place] [facility] [address] [id number] [place] [address]- 4160 December, [facility] [address] [id number] [place] [address]- 6932 25 Nov, 2012 [facility] [address] [id number] [place] [address]- 3546 17 Nov, 2012 [facility] [address] [id number] [place] [address]- 0143 16 Nov, 2012 [facility] [address] [id number] [place] [address]- 5357 15 Nov, 2012 [facility] [address] [id number] [place] [address]- 9501 10 Nov, 2012 [facility] [address] [id number] [place] [address]- 5774 09 Nov, 2012 [facility] [address] [id number] [place] [address]- 1621 22 Oct, 2012 [facility] [address] [id number] [place] [address]- 7539 Oct, [facility] [address] [id number] [place] [address]- 1940 Oct, [facility] [address] [id number] [place] [address]- 9855 28 Aug, 2012 [facility] [address] [id number] [place] [address]- 2163 Aug, [facility] [address] [id number] [place] [address]- 2869 17 Aug, 2012 [facility] [place] [facility] [address] [id number] [place] [address]- 4985 14 Jul, 2012 [facility] [place] [facility] [address] [id number] [place] [address]- 8611 14 Jul, 2012 [facility] [place] [facility] [address] [id number] [place] [address]- 5980 Jun, [facility] [place] [facility] [address] [id number] [place] [address]- 5817 Jun, [facility] [place] [facility] [address] [id number] [place] [address]- 9046 Jun, [facility] [place] [facility] [address] [id number] [place] [address] Jun, [facility] [place] [facility] [address] [id number] [place] [address] May, [facility] [place] [facility] [address] [id number] [place] [address] May, [facility] [place] [facility] [address] [id number] [place] [address] Apr, [facility] [place] [facility] [address] [id number] [place] [address] Apr, [facility] [place] [facility] [address] [id number] [place] [address] Feb, [facility] [place] [facility] [address] [id number] [place] [address] Feb, [facility] [place] [facility] [address] [id number] [place] [address] Nov, [facility] [place] [facility] [address] [id number] [place] [address] Oct, [facility] [place] [facility] [address] [id number] [place] [address] Sep, [facility] [place] [facility] [address] [id number] [place] [address] Sep, [facility] [place] [facility] [address] [id number] [place] [address] Sep, [facility] [place] [facility] [address] [id number] [place] [address] Aug, [facility] [place] [facility] [id number] [place] [address] 17 Aug, 2011 [facility] [address] [facility] [id number] [place] [address] Aug, [facility] [id number] [place] [address] Jul, [facility] [id number] [place] [address] Jul, [facility] [address] [facility] [id number] [place] [address] Jun, [facility] [id number] [place] [id number] Jun, [facility] [id number] [place] [address] Jun, [facility] [id number] [place] [id number] May, [facility] [address] [address] May, [facility] [address] [address] May, [facility] [address] [address] May, [facility] [address] [address] May, [facility] [address] [address] Feb, [facility] [address] [address] Nov, [facility] [id number] [address] 14 Oct, 2010 IMMUNIZATIONS No Known Immunizations [...] History 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
--- OUTSIDE RECORDS SUMMARY | 2018-06-03 14:17 | XMS REPORT ---
Author Author ANTONINO WALLER Organization [facility], [place] Address [address] [place] [address] Care Team Providers Care Clinical Mental Health Counselor Name Role Phone WALLERANGELA MillsELE Unavailable PROBLEMS Type Condition ICD9-CM Code FCG74-KB Code Onset Dates Condition Status SNOMED Code Problem History of CVA (cerebrovascular accident) Z86.73 Active 715402948 Problem custodial current use of insulin Z79.4 Active 998103099 Problem Essential hypertension I10 Active 01553999 Problem Type 2 diabetes mellitus with diabetic neuropathy E11.40 Active 17732291 Problem Other obesity due to excess calories E66.09 Active 519548890 Problem Chronic idiopathic constipation K59.04 Active 06464963 Problem 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 Active 85244097 Problem Mixed hyperlipidemia E78.2 Active 969071024 Problem Osteoarthritis of right knee M17.9 Active 168555712 Problem History of renal failure Z87.448 Active 907671439 ALLERGIES Substance Reaction Event Type Date Status Milk of Magnesia Unknown Drug Allergy Feb, Active Maalox Unknown Drug Allergy Feb, Active ENCOUNTERS Encounter Location Date Diagnosis [facility], [place] [address] [address] Mar, Essential hypertension I10 and Type 2 diabetes mellitus with diabetic neuropathy E11.40 [facility] [place] [address] [address] Mar, [facility] [place] [id number] [place] [address] 71330- 3984 Mar, Essential hypertension I10 [facility] [place] [address], [place] [address] Mar, Type 2 diabetes mellitus with diabetic neuropathy E11.40 [facility] [address] [place] [address] [id number] Feb, Dental caries K02.9 [facility] [place] [address] [address] Feb, [facility] [place] [address] [place] [address] 853036- 7461 Feb, Type 2 diabetes mellitus with diabetic neuropathy E11.40 ; Essential hypertension I10 ; Mixed hyperlipidemia E78.2 ; History of CVA ( cerebrovascular accident) Z86.73 ; Other obesity due to excess calories E66.09 and Body mass index (BMI) of 31.0-31.9 in adult Z68.31 [facility] [id number] [place] [address] [id number] Jan, Dental examination Z01.20 [facility] [place] [id number] [place] [address] [id number] [phone] Jan, Type 2 diabetes mellitus with diabetic neuropathy E11.40 [facility] [id number] [place] [address] [id number] Nov, Dental caries K02.9 [facility] [place] [id number] [place] [address] 15948- 0161 Nov, Type 2 diabetes mellitus with diabetic neuropathy E11.40 [facility] [place] [address] [place] [address] [id number]- 9343 Nov, Medicare annual wellness visit, initial Z00.00 ; Type 2 diabetes mellitus with diabetic neuropathy E11.40 ; 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 Z79.4 ; 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 ; Essential hypertension I10 ; Mixed hyperlipidemia E78.2 ; History of CVA (cerebrovascular accident) Z86.73 ; History of renal failure Z87.448 ; Osteoarthritis of right knee M17.9 and Encounter for immunization Z23 [facility] [address] [place] [address] [phone] Nov, Dental examination Z01.20 [facility] [place] [address] [place] [address] [phone]- 4322 Oct, Type 2 diabetes mellitus with diabetic neuropathy E11.40 ; 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 C[facility] ; History of renal failure Z87.448 ; Mild single current episode of major depressive disorder F32.0 ; Essential hypertension I10 ; Mixed hyperlipidemia E78.2 and Chronic idiopathic constipation K59.04 [facility] [id number] [place] [address] 19337 -9066 Oct, Type 2 diabetes mellitus with diabetic neuropathy E11.40 ; Dental caries extending into pulp K02.9 ; Nausea and vomiting, intractability of vomiting not specified, unspecified vomiting type R11.2 and Chronic idiopathic constipation K59.04 [place] [address] [address] 6[address] Oct, Type 2 diabetes mellitus with diabetic neuropathy E11.40 [facility] [place] [address] [address]- 3669 Aug, [facility] [place] [address] 18745- 1318 Jul, Type 2 diabetes mellitus with diabetic neuropathy E11.40 [facility] [address] 85363 -1201 Jul, Muscle spasm of back M62.830 [facility] [place] [address] 11685- 8836 Jun, Type 2 diabetes mellitus with diabetic neuropathy E11.40 ; custodial 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 C92.11 ; History of renal failure Z87.448 ; Mild single current episode of major depressive disorder F32.0 ; Pain in right knee M25.561 and Encounter for immunization Z23 [facility] [id number] [address] Feb, Bloody discharge from right nipple N64.52 [facility] [place] [address] [address] 7983 Feb, [place] [address] [address]- 1146 Feb, [place] [address], [place] [address] 6587 December, Type 2 diabetes mellitus with diabetic neuropathy E11.40 [facility] [address], [place] [address] 3[address] December, Type 2 diabetes mellitus with diabetic neuropathy E11.40 ; custodial 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 C92.11 ; History of renal failure Z87.448 ; Mild single current episode of major depressive disorder F32.0 and Pain in right knee M25.561 [facility] [place] [address], [place] [address] 8[address] Nov, Type 2 diabetes mellitus with diabetic neuropathy E11.40 ; custodial 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 C92.11 ; History of renal failure Z87.448 ; Mild single current episode of major depressive disorder F32.0 and Pain in right knee M25.561 [place] [id number], [place] [address] 16 Sep, 2016 Osteoarthritis of right knee M17.9 [facility] [id number], [place] [address]- 4507 Sep, Type 2 diabetes mellitus with diabetic neuropathy E11.40 ; custodial 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 C92.11 ; History of renal failure Z87.448 ; Mild single current episode of major depressive disorder F32.0 and Pain in right knee M25.561 [facility] [place] [id number], [place] [address] 6152 Aug, Type 2 diabetes mellitus with diabetic neuropathy E11.40 [facility] [place] [address] [place] [address] 32547- 1305 Jul, Type 2 diabetes mellitus with diabetic neuropathy E11.40 ; 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 Z79.4 ; Chronic myeloid leukemia in [facility] C92.11 ; History of renal failure Z87.448 and Mild single current episode of major depressive disorder F32.0 [place] [id number] [place] [address] 04485- 0265 Jun, [place] [id number] [place] [address] 81603- 6611 May, Type 2 diabetes mellitus with diabetic neuropathy E11.40 [place] [id number] [place] [address] 92559- 2496 May, Tendonitis M77.9 [place] [address] 84142- 4969 May, Type 2 diabetes mellitus with diabetic neuropathy E11.40 ; 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 Z79.4 ; Chronic myeloid leukemia in [facility] C92.11 ; History of renal failure Z87.448 and Mild single current episode of major depressive disorder F32.0 [place] [place] [id number] [place] [address] 30504- 4278 Apr, Type 2 diabetes mellitus with diabetic neuropathy E11.40 [facility] [id number] [place] [address] 13341- 9063 Apr, Type 2 diabetes mellitus with diabetic neuropathy E11.40 ; custodial 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 C92.11 ; History of renal failure Z87.448 ; Mild single current episode of major depressive disorder F32.0 and Right foot pain M79.671 [facility] [place] [address] [place] [address] 45387- 3507 Feb, History of renal failure Z87.448 [facility] [id number] [place] [address] 11264- 2983 Feb, Type 2 diabetes mellitus with diabetic neuropathy E11.40 ; 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 Z79.4 ; Chronic myeloid leukemia in [facility] C92.11 ; History of renal failure Z87.448 and Mild single current episode of major depressive disorder F32.0 [facility] [place] [address], [place] [address]- 5531 Feb, 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 [place] [place] [id number] [place] [address] 80983- 0753 Feb, Type 2 diabetes mellitus with diabetic neuropathy E11.40 ; 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 Z79.4 ; Chronic myeloid leukemia in [place] 501382.11 ; Essential hypertension I10 ; Mixed hyperlipidemia E78.2 ; History of CVA (cerebrovascular accident) Z86.73 ; History of renal failure Z87.448 and Mild single current episode of major depressive disorder F32.0 [place] [id number] [place] [address] 21167- 5250 Jan, Type 2 diabetes mellitus with diabetic neuropathy E11.40 ; 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 Z79.4 ; Chronic myeloid leukemia in [place] [address]. ; Essential hypertension I10 ; Mixed hyperlipidemia E78.2 ; History of CVA (cerebrovascular accident) Z86.73 and History of renal failure Z87.448 [facility] [place] [address] [place] [address] 81694- 2102 Jan, [facility] [id number] [place] [address] 81924 -0731 Jan, Cellulitis of hand, left L03.114 [facility] [place] [id number] [place] [address] 79824- 9655 Nov, Osteoarthritis of right knee M17.9 [facility] [place] [address] [place] [address] 97273- 7718 Sep, Type 2 diabetes mellitus with diabetic neuropathy E11.40 ; 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 Z79.4 ; Chronic myeloid leukemia in [place] 501382.11 ; Essential hypertension I10 ; Mixed hyperlipidemia E78.2 and History of CVA (cerebrovascular accident) Z86.73 [place] [id number] [place] [address] 48858- 1689 Aug, Osteoarthritis of right knee M17.9 [place] [id number] [place] [address] 89334- 4599 Aug, Pain in right knee M25.561 [place] [id number] [place] [address] 72364- 1337 Jul, [place] [id number] [place] [address] 56602- 5633 Jun, [place] [id number] [place] [address] 29663- 0572 Jun, Axillary lump, right R22.31 [place] [id number] [place] [address] 14286- 5403 Jun, Type 2 diabetes mellitus with diabetic neuropathy E11.40 ; Encounter for immunization Z23 ; 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 Z79.4 ; 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 ; Essential hypertension I10 ; Mixed hyperlipidemia E78.2 ; History of CVA (cerebrovascular accident) Z86.73 and Axillary lump, right R22.31 [place] [address] [place] [address] 44754- 3005 Mar, Hyperlipidemia 272.4 [place] [id number] [place] [address] 72029- 4238 Mar, Right knee pain 719.46 [place] [id number] [place] [address] 59866- 1493 Mar, Rotator cuff impingement syndrome of left shoulder 726.10 [place] [address] [place] [address] 18363- 0527 Feb, [place] [id number], [place] [address]- 2127 Feb, Chronic myeloid leukemia, without mention of having achieved remission 205.10 ; Essential hypertension, malignant 401.0 ; Unspecified hereditary and idiopathic peripheral neuropathy 356.9 ; Diabetes mellitus type 2, controlled, with complications 250.90 ; Hyperlipidemia 272.4 and Pain, joint, shoulder, left 719.41 [facility], [place] [address], [place] [address]- 0793 23 Jan, 2015 [facility] [place] [id number] [place] [address] 87070- 6629 Nov, [facility] [place] [id number] [place] [address] 44817- 1293 Nov, [facility] [place] [id number] [place] [address] 08097- 4071 Oct, [facility] [place] [id number] 6006 Oct, [facility] [place] [id number] [place] [address] 555241- 5059 Oct, [facility] [place] [address], [place] [address]- 1045 Oct, [facility] [place] [id number] [place] [address] [id number]- 0451 Oct, [facility] [place] [address], [place] [address]- 4958 Oct, [facility] [place] [address], [place] [address]- 5566 Sep, [facility] [place] [address], [place] [address]- 1356 Sep, [facility] [place] [id number], [place] [address]- 7146 Aug, [facility] [place] [address], [place] [address]- 6116 Aug, [facility] [place] [address] 4772 Jul, [facility] [place] [facility] [address] [id number] [place] 8796 Jul, [facility] [place] [facility] [address] [id number] [place] 9997 Jul, [facility] [place] [facility] [address] [id number] [place]- 7158 Jul, [facility] [place] [facility] [address] [id number] [place]- 6653 Jul, [facility] [place] [facility] [address] [id number] [place]- 2079 Jul, [facility] [place] [facility] [address] [id number] [place] [address]- 5373 Jul, [facility] [place] [facility] [address] [id number] [place] [address]- 9392 Jul, [facility] [place] [facility] [address] [id number] [place] [address]- 2665 Jul, [facility] [place] [facility] [address] [id number] [place] [address]- 6149 May, [facility] [place] [facility] [address] [id number] [place] [address]- 6505 May, [facility] [place] [facility] [address] [id number] [address]- 0695 Apr, [facility] [place] [facility] [address] [id number], [place] [address]- 6679 Apr, [facility] [place] [facility] [address] [id number] [place] [address]- 8966 Apr, [facility] [place] [facility] [address] [id number] [place] 2861 Apr, [facility] [place] [facility] [address] [id number] [place] [address]- 3141 Feb, [facility] [place] [facility] [address] [id number], [place] [address]- 6192 Feb, [facility] [place] [facility] [address] [id number] [place] [address]- 8823 Feb, [facility] [place] [facility] [address] [id number] [place] [address]- 1515 Feb, [facility] [place] [facility] [address] [id number] [place] [address]- 6531 Jan, [facility] [place] [facility] [address] [id number] [place] [address]- 2391 Jan, [facility] [place] [facility] [address] [id number] [place] [address]- 9141 Jan, [facility] [place] [facility] [address] [id number] [place] [address]- 7812 Jan, [facility] [place] [facility] [address] [id number] [place] [address]- 4664 Jan, [facility] [place] [facility] [address] [id number] [place] [address]- 1221 Jan, [facility] [place] [facility] [address] [id number] [place] [address]- 1030 December, [facility] [place] [facility] [address] [id number] [place] [address]- 4155 December, [facility] [place] [facility] [address] [id number] [place] [address]- 6275 December, [facility] [place] [facility] [address] [id number] [place] [address]- 1729 December, [facility] [place] [facility] [address] [id number] [place] [address]- 3436 Nov, [facility] [place] [facility] [address] [id number] [place] [address]- 8141 Nov, [facility] [place] [facility] [address] [id number] [place] [address]- 2905 Nov, [facility] [place] [facility] [address] [id number] [place] [address]- 1928 Nov, [facility] [place] [facility] [address] [id number] [place] [address]- 4078 Oct, [facility] [place] [facility] [address] [id number] [place] [address]- 5315 Oct, [facility] [place] [facility] [address] [id number] [place] [address]- 0162 Oct, [facility] [place] [facility] [address] [id number] [place] [address]- 5472 Oct, [facility] [place] [facility] [address] [id number] [place] [address]- 2975 Oct, [facility] [place] [facility] [address] [id number] [place] [address]- 5991 Oct, [facility] [place] [facility] [address] [id number] [place] [address]- 2240 Sep, [facility] [place] [facility] [address] [id number] [place] [address]- 0089 Sep, [facility] [place] [facility] [address] [id number] [place] [address]- 0880 Sep, [facility] [place] [facility] [address] [id number] [place] [address]- 9146 Sep, [facility] [place] [facility] [address] [id number] [place] [address]- 6547 Aug, [facility] [place] [facility] [address] [id number] [place] [address]- 0390 Aug, [facility] [place] [facility] [address] [id number] [place] [address]- 4814 Aug, [facility] [place] [facility] [address] [id number] [place] [address]- 2690 Aug, [facility] [place] [facility] [address] [id number] [place] [address]- 2546 Aug, [facility] [place] [facility] [address] [id number] [place] 4019 Aug, [facility] [place] [facility] [address] [id number] [place] [address]- 7382 Jul, [facility] [place] [facility] [address] [id number] [place] [address]- 5795 Jul, [facility] [place] [facility] [address] [id number] [place] [address]- 4923 Jul, [facility] [place] [facility] [address] [id number] [place] 2515 Jul, [facility] [place] [facility] [address] [id number] [place] 7460 Jun, [facility] [place] [facility] [address] [id number] [place] [address]- 1297 Jun, [facility] [place] [facility] [address] [id number] [place] [address]- 8695 May, [facility] [place] [facility] [address] [id number] [place] 4704 Feb, [facility] [place] [facility] [address] [id number] [place] [address]- 4195 Feb, [facility] [place] [facility] [address] [id number] [place] [address]- 6734 Feb, [facility] [place] [facility] [address] [id number] [place] [address]- 5993 Jan, [facility] [place] [facility] [address] [id number] [place] [address]- 8494 Jan, [facility] [place] [facility] [address] [id number] [place] [address]- 9153 Jan, [facility] [place] [facility] [address] [id number] [place] [address]- 5857 December, [facility] [place] [facility] [address] [id number] [place] [address]- 2546 December, [facility] [address] [id number] [place] [address]- 7397 December, [facility] [address] [id number] [place] [address]- 0746 25 Nov, 2012 [facility] [address] [id number] [place] [address]- 4096 17 Nov, 2012 [facility] [address] [id number] [place] [address]- 3416 16 Nov, 2012 [facility] [address] [id number] [place] [address]- 0813 15 Nov, 2012 [facility] [address] [id number] [place] [address]- 4083 10 Nov, 2012 [facility] [address] [id number] [place] [address]- 3604 Nov, [facility] [address] [id number] [place] [address]- 9464 Oct, [facility] [address] [id number] [place] [address]- 8669 20 Oct, 2012 [facility] [address] [id number] [place] [address]- 2370 Oct, [facility] [address] [id number] [place] [address]- 1532 Aug, [facility] [address] [id number] [place] [address]- 2023 Aug, [facility] [address] [id number] [place] [address]- 0173 17 Aug, 2012 [facility] [address] [id number] [place] [address]- 2094 14 Jul, 2012 [facility] [address] [id number] [place] [address]- 8833 Jul, [facility] [place] [facility] [address] [id number] [place] [address]- 1051 Jun, [facility] [place] [facility] [address] [id number] [place] [address]- 2667 Jun, [facility] [place] [facility] [address] [id number] [place] [address]- 4330 Jun, [facility] [place] [facility] [address] [id number] [place] [address] Jun, [facility] [place] [facility] [address] [id number] [place] [address] May, [facility] [place] [facility] [address] [id number] [place] [address] May, [facility] [place] [facility] [address] [id number] [place] [address] Apr, [facility] [place] [facility] [address] [id number] [place] [address] Apr, [facility] [place] [facility] [address] [id number] [place] [address] Feb, [facility] [place] [facility] [address] [facility] [id number] [place] [address] Feb, [facility] [place] [facility] [address] [id number] [place] [address] Nov, [facility] [place] [facility] [address] [id number], [place] [address] Oct, [facility] [place] [facility] [address] [id number] [place] [address] Sep, [facility] [place] [facility] [address] [id number] [place] [address] [address] Sep, [facility] [place] [facility] [address] [id number] [place] [address] Sep, [facility] [place] [facility] [address] [id number] [place] [address] 20 Aug, 2011 [facility] [address] [id number] [place] [address] 17 Aug, 2011 [facility] [address] [facility] [id number] [place] [address] 16 Aug, 2011 [facility] [address] [facility] [id number] [place] [address] Jul, [facility] [address] [id number] [place] [address] Jul, [facility] [address] [facility] [id number] [place] [address] Jun, [facility] [address] [facility] [id number] [place] [address] Jun, [facility] [address] [facility] [id number] [place] [address] Jun, [facility] [address] [facility] [id number] [place] [address] May, [facility] [address] [facility] [id number] [place] [address] May, [facility] [address] [facility] [id number] [place] [address] May, [facility] [address] [facility] [id number] [place] [address] May, [facility] [address] [facility] [id number] [address] May, [facility] [address] [facility] [id number], [place] [address] Feb, [facility] [address] [facility] [id number] [address] 13 Nov, 2010 [facility] [address] [facility] [id number] [address] 14 Oct, 2010 IMMUNIZATIONS No Known Immunizations SOCIAL HISTORY Never Assessed REASON FOR VISIT Transition of Care from Foster Davis RN PLAN OF CARE Activity Details Follow Up 3 Months, prn Reason:CHM/DM Pending Test MICROALBUMIN, URINE (IN HOUSE) VITAL SIGNS Height 66 in 2018-02-07 Weight 194.9 lbs 2018-02-07 Temperature 97.6 degrees Fahrenheit 2018-02-07 Heart Rate 68 bpm 2018-02-07 Respiratory Rate 20 2018-02-07 BMI 31.45 kg/m2 2018-02-07 Blood pressure systolic 112 mmHg 2018-02-07 Blood pressure diastolic 62 mmHg 2018-02-07 MEDICATIONS Medication Instructions Dosage Frequency Start Date End Date Duration Status Pen [place] 31G X 8 MM 1 Active Levemir FlexTouch 100 UNIT/ML Subcutaneous 2 times a day per insulin sliding scale protocol 40 units 12 months Active Contour Blood Glucose System Test Strips 24h Active Portafare Contour Monitor w/Device as directed Apr, Active Glimepiride 2 MG Orally 2 times a day TAKE ONE TABLET BY MOUTH TWICE DAILY 12h 30 Active Metoprolol Succinate ER 25 MG Orally 2 times a day TAKE ONE-HALF TABLET BY MOUTH TWICE DAILY 12h 30 Active Lisinopril 40 mg Orally Once a day 1 tablet 24h 90 days Active Farxiga 10 mg Orally Once a day 1 tablet 24h Oct, Aug, 30 day(s) Active BD Pen Needle Ultrafine 29G X 12.7MM subcutaneously 5 times per day Inject December, Active Rusty Contour Next EZ strips intradermal tid and prn tid and prn Active Aspirin 81 MG Orally Once a day 1 tablet 24h 90 days Active NovoLog Flexpen 100 UNIT/ML Subcutaneous 2 times a day 30 units 12h 12 months Active Atorvastatin Calcium 40 mg Orally Once a day TAKE ONE TABLET BY MOUTH ONCE DAILY 24h 90 Active Plavix 75 MG Orally Once a day 1 tablet 24h 30 days Active RESULTS Name Result Date Reference Range A1C (IN HOUSE) 2018-02-07 A1C IN HOUSE 9.5 4.3 - 5.6 % Previous A1c 9.7 Lot [id number] Exp date 10/2019 PROCEDURES Procedure Date Ordered Result Body Site GLYCATED HEMOGLOBIN TEST February 07, 2018 MICROALBUMIN, SEMIQUANT February 07, 2018 REPLACED BY [facility] VISIT ESTABLISHED PATIENT February 07, 2018 INSTRUCTIONS MEDICATIONS ADMINISTERED No Known Medications MEDICAL (GENERAL) HISTORY Type Description Date Medical History hypertension Medical History hyperlipidemia Medical History type II diabetes Medical History Arthritis-knees and hips Medical History stroke-05/2011 Medical History 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
--- OUTSIDE RECORDS SUMMARY | 2018-06-03 14:27 | XMS REPORT | Continuity of Care Document ---
Author Author [facility] Address Unknown Phone Unavailable Allergies [...] Allergies NKA Miscellaneous Allergy Unknown N/A 10/25/2015 Yes ibuprofen [id number] Drug Allergy Unknown N/A 03/29/2018 Yes naproxen [id number] Drug Allergy Unknown N/A 03/29/2018 Yes naproxen [id number] Drug Allergy Mild KIDNEY ISSUES 05/27/2018 Medications There is no data. 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 07/05/1012 VIRY MORAN Ot E11.9 TYPE 2 DIABETES MELLITUS WITHOUT COMPLIC 07/05/1012 VIRY MORAN Ot I10 ESSENTIAL (PRIMARY) HYPERTENSION 07/05/1012 VIRY MORAN Ot Z79.4 CORRECTION (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 07/05/1012 VIRY MORAN Ot Z79.899 OTHER CORRECTION (CURRENT) DRUG THERAPY 10/08/2010 Ot 250.02 DIAB ALONDRA WO COMPL, TYPE II OR UNSPEC TY 10/08/2010 Ot 285.9 ANEMIA NOS 10/08/2010 Ot 401.9 HYPERTENSION NOS 10/08/2010 Ot 593.9 RENAL URETERAL DIS NOS 10/08/2010 Ot V58.67 LONG-TERM ( 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 10/08/2010 Ot V58.69 OT MED,LT, CURRENT USE 10/17/2010 AMARJIT SAHU, TIN 250.02 DIABETES MELLITUS TYPE 2 - UNCOMPLICATED, UNCONTROLLED 10/17/2010 AMARJIT SAHU, TIN 585.9 CHRONIC RENAL FAILURE 10/17/2010 CATALINO PEREZ DO 250.02 DIABETES MELLITUS TYPE 2 - UNCOMPLICATED, UNCONTROLLED 10/17/2010 CATALINO PEREZ DO 585.9 CHRONIC RENAL FAILURE 10/17/2010 JONNIE SAHU, DANIEL Rawls 250.02 DIABETES MELLITUS TYPE 2 - UNCOMPLICATED, [...] CRISTINA MD 585.9 CHRONIC RENAL FAILURE 10/17/2010 ADNIEL CRISTINA MD 250.02 DIABETES MELLITUS TYPE 2 - UNCOMPLICATED, UNCONTROLLED 10/17/2010 DANIEL CRISTINA MD 585.9 CHRONIC RENAL FAILURE 10/17/2010 CATALINO PEREZ DO 250.02 DIABETES MELLITUS TYPE 2 - UNCOMPLICATED, UNCONTROLLED 10/17/2010 CATALINO PEREZ DO 585.9 CHRONIC RENAL FAILURE 10/17/2010 TIN OCASIO MD 250.02 DIABETES MELLITUS TYPE 2 - UNCOMPLICATED, UNCONTROLLED 10/17/2010 TIN OCASIO MD 585.9 CHRONIC RENAL FAILURE 10/17/2010 MADL 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, DELLA L 250.02 DIABETES MELLITUS TYPE 2 - UNCOMPLICATED, UNCONTROLLED 10/17/2010 MADL 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, DELLA L 585.9 CHRONIC RENAL FAILURE 10/17/2010 MADL 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, DELLA L 250.02 DIABETES MELLITUS TYPE 2 - UNCOMPLICATED, UNCONTROLLED 10/17/2010 MADL 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, DELLA L 585.9 CHRONIC RENAL FAILURE 10/17/2010 MADL 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, DELLA L 250.02 DIABETES MELLITUS TYPE 2 - UNCOMPLICATED, UNCONTROLLED 10/17/2010 MADL 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, DELLA L 585.9 CHRONIC RENAL FAILURE 10/17/2010 MADL 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, DELLA L 250.02 DIABETES MELLITUS TYPE 2 - UNCOMPLICATED, UNCONTROLLED 10/17/2010 MADL 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, DELLA L 585.9 CHRONIC RENAL FAILURE 10/17/2010 250.02 DIABETES MELLITUS TYPE 2 - UNCOMPLICATED, UNCONTROLLED 10/17/2010 585.9 CHRONIC RENAL FAILURE 10/17/2010 MADL 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, DELLA L 250.02 DIABETES MELLITUS TYPE 2 - UNCOMPLICATED, UNCONTROLLED 10/17/2010 MADL 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, DELLA L 585.9 CHRONIC RENAL FAILURE 10/17/2010 PEREZ DO CATALINO K 250.02 DIABETES MELLITUS TYPE 2 - UNCOMPLICATED, UNCONTROLLED 10/17/2010 PEREZ DO CATALINO K 585.9 CHRONIC RENAL FAILURE 10/17/2010 PEREZ DO CATALINO K 250.02 DIABETES MELLITUS TYPE 2 - UNCOMPLICATED, UNCONTROLLED 10/17/2010 PEREZ DO CATALINO K 585.9 CHRONIC RENAL FAILURE 11/02/2010 TIN OCASIO MD 250.90 DIABETES MELLITUS TYPE 2 WITH COMPLICATION 11/02/2010 WAYNE PEREZ DOA K 250.90 DIABETES MELLITUS TYPE 2 WITH [...] MELLITUS TYPE 2 WITH COMPLICATION 11/02/2010 EVERARDO FRY, DELLA L 250.90 DIABETES MELLITUS TYPE 2 WITH COMPLICATION 11/02/2010 EVERARDO 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, DELLA L 250.90 DIABETES MELLITUS TYPE 2 WITH COMPLICATION 11/02/2010 RUBINAL 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, DELLA L 250.90 DIABETES MELLITUS TYPE 2 WITH COMPLICATION 11/02/2010 RUBINAL 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, DELLA L 250.90 DIABETES MELLITUS TYPE 2 WITH COMPLICATION 11/02/2010 250.90 DIABETES MELLITUS TYPE 2 WITH COMPLICATION 11/02/2010 MADL 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, DELLA L 250.90 DIABETES MELLITUS TYPE 2 WITH COMPLICATION 11/02/2010 PEREZ DO CATALINO K 250.90 DIABETES MELLITUS TYPE 2 WITH COMPLICATION 11/02/2010 PEREZ DO CATALINO K 250.90 DIABETES MELLITUS TYPE 2 WITH COMPLICATION 11/16/2010 TIN OCASIO MD 250.42 DIABETES WITH RENAL MANIFESTATIONS TYPE II OR UNSPECIFIED TYPE UNCONTROLLED 11/16/2010 TIN OCASIO MD 268.9 UNSPECIFIED VITAMIN D DEFICIENCY 11/16/2010 TIN OCASIO MD 782.3 EDEMA 11/16/2010 WAYNE PEREZ DOA K 250.42 DIABETES WITH RENAL MANIFESTATIONS TYPE II OR UNSPECIFIED TYPE UNCONTROLLED 11/16/2010 WAYNE PEREZ DOA K 268.9 UNSPECIFIED VITAMIN D DEFICIENCY 11/16/2010 WAYNE PEREZ DOA K 782.3 EDEMA 11/16/2010 DANIEL CRISTINA MD 250.42 [...] 11/16/2010 DANIEL CRISTINA MD 782.3 EDEMA 11/16/2010 PEREZ DO CATALINO K 250.42 DIABETES WITH RENAL MANIFESTATIONS TYPE II OR UNSPECIFIED TYPE UNCONTROLLED 11/16/2010 PEREZ DO CATALINO K 268.9 UNSPECIFIED VITAMIN D DEFICIENCY 11/16/2010 CHRIS PATINO CATALINO K 782.3 EDEMA 11/16/2010 TIN OCASIO MD 250.42 DIABETES WITH RENAL MANIFESTATIONS TYPE II OR UNSPECIFIED TYPE UNCONTROLLED 11/16/2010 TIN OCASIO MD 268.9 UNSPECIFIED VITAMIN D DEFICIENCY 11/16/2010 TIN OCASIO MD 782.3 EDEMA 11/16/2010 EVERARDO 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, DELLA L 250.42 DIABETES WITH RENAL MANIFESTATIONS TYPE II OR UNSPECIFIED TYPE UNCONTROLLED 11/16/2010 MADL 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, DELLA L 268.9 UNSPECIFIED VITAMIN D DEFICIENCY 11/16/2010 MADL 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, DELLA L 782.3 EDEMA 11/16/2010 MADL 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, DELLA L 250.42 DIABETES WITH RENAL MANIFESTATIONS TYPE II OR UNSPECIFIED TYPE UNCONTROLLED 11/16/2010 MADL 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, DELLA L 268.9 UNSPECIFIED VITAMIN D DEFICIENCY 11/16/2010 MADL 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, DELLA L 782.3 EDEMA 11/16/2010 MADL 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, DELLA L 250.42 DIABETES WITH RENAL MANIFESTATIONS TYPE II OR UNSPECIFIED TYPE UNCONTROLLED 11/16/2010 MADL 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, DELLA L 268.9 UNSPECIFIED VITAMIN D DEFICIENCY 11/16/2010 MADL 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, DELLA L 782.3 EDEMA 11/16/2010 MADL 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, DELLA L 250.42 DIABETES WITH RENAL MANIFESTATIONS TYPE II OR UNSPECIFIED TYPE UNCONTROLLED 11/16/2010 MADL 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, DELLA L 268.9 UNSPECIFIED VITAMIN D DEFICIENCY 11/16/2010 MADL 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, DELLA L 782.3 EDEMA 11/16/2010 250.42 DIABETES WITH RENAL MANIFESTATIONS TYPE II OR UNSPECIFIED TYPE UNCONTROLLED 11/16/2010 268.9 UNSPECIFIED VITAMIN D DEFICIENCY 11/16/2010 782.3 EDEMA 11/16/2010 MADL 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, DELLA L 250.42 DIABETES WITH RENAL MANIFESTATIONS TYPE II OR UNSPECIFIED TYPE UNCONTROLLED 11/16/2010 MADL 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, DELLA L 268.9 UNSPECIFIED VITAMIN D DEFICIENCY 11/16/2010 MADL 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, DELLA L 782.3 EDEMA 11/16/2010 PEREZ DO, [...] 368.8 OTHER SPECIFIED VISUAL DISTURBANCES 02/22/2011 MADL 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, DELLA L 357.2 POLYNEUROPATHY IN DIABETES 02/22/2011 MADL 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, DELLA L 368.8 OTHER SPECIFIED VISUAL DISTURBANCES 02/22/2011 MADL 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, DELLA L 357.2 POLYNEUROPATHY IN DIABETES 02/22/2011 MADL 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, DELLA L 368.8 OTHER SPECIFIED VISUAL DISTURBANCES 02/22/2011 MADL 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, DELLA L 357.2 POLYNEUROPATHY IN DIABETES 02/22/2011 MADL 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, DELLA L 368.8 OTHER SPECIFIED VISUAL DISTURBANCES 02/22/2011 MADL 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, DELLA L 357.2 POLYNEUROPATHY IN DIABETES 02/22/2011 MADL 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, DELLA L 368.8 OTHER SPECIFIED VISUAL DISTURBANCES 02/22/2011 357.2 POLYNEUROPATHY IN DIABETES 02/22/2011 368.8 OTHER SPECIFIED VISUAL DISTURBANCES 02/22/2011 MADL 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, DELLA L 357.2 POLYNEUROPATHY IN DIABETES 02/22/2011 MADL 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, DELLA L 368.8 OTHER SPECIFIED VISUAL DISTURBANCES 02/22/2011 PEREZ DO, CATALINO K 357.2 POLYNEUROPATHY IN DIABETES 02/22/2011 PEREZ DO, CATALINO K 368.8 OTHER SPECIFIED VISUAL DISTURBANCES 02/22/2011 CATALINO PEREZ DO 357.2 POLYNEUROPATHY IN DIABETES 02/22/2011 CATALINO PEREZ DO 368.8 OTHER SPECIFIED VISUAL DISTURBANCES 05/26/2011 Ot [...] Ot V57.3 CARE INVOLVING SPEECH-LANGUAGE THERAPY 06/01/2011 AMARJIT SAHU, TIN 438.9 UNSPECIFIED LATE EFFECTS OF CEREBROVASCULAR DISEASE [...] OF CEREBROVASCULAR DISEASE 06/01/2011 CATALINO PEREZ DO K 438.9 UNSPECIFIED LATE EFFECTS OF CEREBROVASCULAR DISEASE 06/01/2011 TIN OCASIO MD 438.9 UNSPECIFIED LATE EFFECTS OF CEREBROVASCULAR DISEASE 06/01/2011 MADL 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, DELLA L 438.9 UNSPECIFIED LATE EFFECTS OF CEREBROVASCULAR DISEASE 06/01/2011 MADL 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, DELLA L 438.9 UNSPECIFIED LATE EFFECTS OF CEREBROVASCULAR DISEASE 06/01/2011 MADL 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, DELLA L 438.9 UNSPECIFIED LATE EFFECTS OF CEREBROVASCULAR DISEASE 06/01/2011 MADL 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, DELLA L 438.9 UNSPECIFIED LATE EFFECTS OF CEREBROVASCULAR DISEASE 06/01/2011 438.9 UNSPECIFIED LATE EFFECTS OF CEREBROVASCULAR DISEASE 06/01/2011 MADL 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, DELLA L 438.9 UNSPECIFIED LATE EFFECTS OF CEREBROVASCULAR DISEASE 06/01/2011 CATALINO PEREZ DO K 438.9 UNSPECIFIED LATE EFFECTS OF CEREBROVASCULAR DISEASE 06/01/2011 CATALINO PEREZ DO K 438.9 UNSPECIFIED LATE EFFECTS OF CEREBROVASCULAR DISEASE 07/04/2011 TIN OCASIO MD 564.00 UNSPECIFIED CONSTIPATION 07/04/2011 TIN OCASIO MD 788.20 Retention Of Urine Unspecified 07/04/2011 CATALINO PEREZ DO 564.00 UNSPECIFIED CONSTIPATION 07/04/2011 PEREZ CATALINO PATINO 788.20 Retention Of Urine Unspecified 07/04/2011 DANIEL [...] 788.20 Retention Of Urine Unspecified 07/04/2011 MADL 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, DELLA L 564.00 UNSPECIFIED CONSTIPATION 07/04/2011 MADL 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, DELLA L 788.20 Retention Of Urine Unspecified 07/04/2011 MADL 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, DELLA L 564.00 UNSPECIFIED CONSTIPATION 07/04/2011 MADL 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, DELLA L 788.20 Retention Of Urine Unspecified 07/04/2011 MADL 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, DELLA L 564.00 UNSPECIFIED CONSTIPATION 07/04/2011 MADL 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, DELLA L 788.20 Retention Of Urine Unspecified 07/04/2011 MADL 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, DELLA L 564.00 UNSPECIFIED CONSTIPATION 07/04/2011 MADL 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, DELLA L 788.20 Retention Of Urine Unspecified 07/04/2011 564.00 UNSPECIFIED CONSTIPATION 07/04/2011 788.20 Retention Of Urine Unspecified 07/04/2011 MADL 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, DELLA L 564.00 UNSPECIFIED CONSTIPATION 07/04/2011 MADL 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, DELLA L 788.20 Retention Of Urine Unspecified 07/04/2011 PEREZ DO, CATALINO K 564.00 UNSPECIFIED CONSTIPATION 07/04/2011 PEREZ DO, CATALINO K 788.20 Retention Of Urine Unspecified 07/04/2011 PEREZ DO, CATALINO K 564.00 UNSPECIFIED CONSTIPATION 07/04/2011 PEREZ DO, CATALINO K 788.20 Retention Of Urine Unspecified 11/16/2011 TIN OCASIO MD 788.41 Urinary Frequency 11/16/2011 PEREZ , CATALINO K 788.41 Urinary Frequency 11/16/2011 DANIEL CRISTINA MD 788.41 Urinary Frequency 11/16/2011 788.41 Urinary Frequency 11/16/2011 788.41 Urinary Frequency 11/16/2011 788.41 Urinary Frequency 11/16/2011 788.41 Urinary Frequency 11/16/2011 788.41 Urinary Frequency 11/16/2011 DANIEL CRISTINA MD 788.41 Urinary Frequency 11/16/2011 DANIEL CRISTINA MD 788.41 Urinary Frequency 11/16/2011 PEREZ DO, CATALINO K 788.41 Urinary Frequency 11/16/2011 TIN OCASIO MD 788.41 Urinary Frequency 11/16/2011 MADL 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, DELLA L 788.41 Urinary Frequency 11/16/2011 MADL 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, DELLA L 788.41 Urinary Frequency 11/16/2011 MADL 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, DELLA L 788.41 Urinary Frequency 11/16/2011 MADL 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, DELLA L 788.41 Urinary Frequency 11/16/2011 788.41 Urinary Frequency 11/16/2011 MADL 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, DELLA L 788.41 Urinary Frequency 11/16/2011 PEREZ DO, CATALINO K 788.41 Urinary Frequency 11/16/2011 PEREZ DO, CATALINO K 788.41 Urinary Frequency 06/26/2012 TIN OCASIO MD 401.1 ESSENTIAL HYPERTENSION BENIGN 06/26/2012 TIN OCASIO MD 729.5 pain in the right foot 06/26/2012 TIN OCASIO MD7.20 difficulty swallowing (dysphagia) 06/26/2012 CHRIS PATINO CATALINO K 401.1 ESSENTIAL HYPERTENSION BENIGN 06/26/2012 WAYNE PEREZ DOA K 729.5 pain in the right foot [...] OCASIO MD 787.20 difficulty swallowing (dysphagia) 06/26/2012 DELLA MCGEE APRN 401.1 ESSENTIAL HYPERTENSION BENIGN 06/26/2012 DELLA MCGEE APRN L 729.5 pain in the right foot 06/26/2012 DELLA MCGEE APRN L 787.20 difficulty swallowing (dysphagia) 06/26/2012 MADL 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, DELLA L 401.1 ESSENTIAL HYPERTENSION BENIGN 06/26/2012 MADL 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, DELLA L 729.5 pain in the right foot 06/26/2012 MADL 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, DELLA L 787.20 difficulty swallowing (dysphagia) 06/26/2012 MADL 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, DELLA L 401.1 ESSENTIAL HYPERTENSION BENIGN 06/26/2012 MADL 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, DELLA L 729.5 pain in the right foot 06/26/2012 MADL 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, DELLA L 787.20 difficulty swallowing (dysphagia) 06/26/2012 MADL 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, DELLA L 401.1 ESSENTIAL HYPERTENSION BENIGN 06/26/2012 MADL 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, DELLA L 729.5 pain in the right foot 06/26/2012 MADL 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, DELLA L 787.20 difficulty swallowing (dysphagia) 06/26/2012 401.1 ESSENTIAL HYPERTENSION BENIGN 06/26/2012 729.5 pain in the right foot 06/26/2012 787.20 difficulty swallowing (dysphagia) 06/26/2012 MADL 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, DELLA L 401.1 ESSENTIAL HYPERTENSION BENIGN 06/26/2012 MADL 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, DELLA L 729.5 pain in the right foot 06/26/2012 MADL 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, DELLA L 787.20 difficulty swallowing (dysphagia) 06/26/2012 PEREZ DO, CATALINO K 401.1 ESSENTIAL HYPERTENSION BENIGN 06/26/2012 PEREZ DO CATALINO K 729.5 pain in the right foot 06/26/2012 PEREZ DO CATALINO K 787.20 difficulty swallowing (dysphagia) 06/26/2012 PEREZ DO, CATALINO K 401.1 ESSENTIAL HYPERTENSION BENIGN 06/26/2012 PEREZ DO, CATALINO K 729.5 pain in the right foot 06/26/2012 PEREZ DO, CATALINO K 787.20 difficulty swallowing (dysphagia) 09/02/2012 CHRIS PATINO CATALINO K 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 09/02/2012 JONNIE SAHU, DANIEL Rawls 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 09/02/2012 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 09/02/2012 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 09/02/2012 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 09/02/2012 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 09/02/2012 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 09/02/2012 DANIEL CRISTINA MD 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 09/02/2012 DANIEL CRISTINA MD 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 09/02/2012 PEREZ DO, CATALINO K 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 09/02/2012 TIN OCASIO MD 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 09/02/2012 MADL 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, DELLA L 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 09/02/2012 MADL 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, DELLA L 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 09/02/2012 MADL 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, DELLA L 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 09/02/2012 MADL 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, DELLA L 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 09/02/2012 MADL 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, DELLA L 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 09/02/2012 PEREZ DO, CATALINO K 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 09/02/2012 PEREZ DO, CATALINO K 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 10/16/2012 DANIEL CRISTINA MD 272.4 HYPERLIPIDEMIA 10/16/2012 [...] 10/16/2012 DANIEL CRISTINA MD 288.60 LEUKOCYTOSIS 10/16/2012 JONNIE SAHU, DANIEL Rawls 401.0 ESSENTIAL HYPERTENSION MALIGNANT 10/16/2012 JONNIE SAHU, DANIEL M 272.4 HYPERLIPIDEMIA 10/16/2012 JONNIE SAHU, DANIEL M 288.60 LEUKOCYTOSIS 10/16/2012 JONNIE SAHU, DANIEL M 401.0 ESSENTIAL HYPERTENSION MALIGNANT 10/16/2012 PEREZ DO, CATALINO K 272.4 HYPERLIPIDEMIA 10/16/2012 PEREZ DO, CATALINO K 288.60 LEUKOCYTOSIS 10/16/2012 PEREZ DO, CATALINO K 401.0 ESSENTIAL HYPERTENSION MALIGNANT 10/16/2012 TIN OCASIO MD 272.4 HYPERLIPIDEMIA 10/16/2012 TIN OCASIO MD 288.60 LEUKOCYTOSIS 10/16/2012 TIN OCASIO MD 401.0 ESSENTIAL HYPERTENSION MALIGNANT 10/16/2012 MADL 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, DELLA L 272.4 HYPERLIPIDEMIA 10/16/2012 MADL 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, DELLA L 288.60 LEUKOCYTOSIS 10/16/2012 MADL 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, DELLA L 401.0 ESSENTIAL HYPERTENSION MALIGNANT 10/16/2012 MADL 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, DELLA L 272.4 HYPERLIPIDEMIA 10/16/2012 MADL 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, DELLA L 288.60 LEUKOCYTOSIS 10/16/2012 MADL 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, DELLA L 401.0 ESSENTIAL HYPERTENSION MALIGNANT 10/16/2012 MADL 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, DELLA L 272.4 HYPERLIPIDEMIA 10/16/2012 MADL 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, DELLA L 288.60 LEUKOCYTOSIS 10/16/2012 MADL 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, DELLA L 401.0 ESSENTIAL HYPERTENSION MALIGNANT 10/16/2012 MADL 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, DELLA L 272.4 HYPERLIPIDEMIA 10/16/2012 MADL 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, DELLA L 288.60 LEUKOCYTOSIS 10/16/2012 MADL 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, DELLA L 401.0 ESSENTIAL HYPERTENSION MALIGNANT 10/16/2012 MADL 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, DELLA L 272.4 HYPERLIPIDEMIA 10/16/2012 MADL 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, DELLA L 288.60 LEUKOCYTOSIS 10/16/2012 MADL 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, DELLA L 401.0 ESSENTIAL HYPERTENSION MALIGNANT 10/16/2012 PEREZ DO, CATALINO K 272.4 HYPERLIPIDEMIA 10/16/2012 PEREZ DO, CATALINO K 288.60 LEUKOCYTOSIS 10/16/2012 PEREZ , CATALINO K 401.0 ESSENTIAL HYPERTENSION MALIGNANT 10/16/2012 CHRIS PATINO, CATALINO K 272.4 HYPERLIPIDEMIA 10/16/2012 CHRIS PATINO, CATALINO K 288.60 LEUKOCYTOSIS 10/16/2012 CHRIS PATINO, CATALINO K 401.0 ESSENTIAL HYPERTENSION MALIGNANT 12/06/2012 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 ) 12/06/2012 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 ) 12/06/2012 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 ) 12/06/2012 DANIEL CRISTINA MD 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) 12/06/2012 DANIEL CRISTINA MD 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) 12/06/2012 CATALINO PEREZ DO 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) 12/06/2012 TIN OCASIO MD 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) 12/06/2012 MADL 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, DELLA L 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) 12/06/2012 MADL 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, DELLA L 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) 12/06/2012 MADL 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, DELLA L 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) 12/06/2012 MADL 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, DELLA L 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) 12/06/2012 MADL 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, DELLA L 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) 12/06/2012 CATALINO PEREZ DO K 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) 12/06/2012 CATALINO PEREZ DO K 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) 01/23/2013 373.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 EXTERNUM 01/23/2013 DANIEL CRISTINA MD 373.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 EXTERNUM 01/23/2013 DANIEL CRISTINA MD 373.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 EXTERNUM 01/23/2013 CATALINO PEREZ DO K 373.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 EXTERNUM 01/23/2013 TIN OCASIO MD 373.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 EXTERNUM 01/23/2013 MADL 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JOSE BlackA L 373.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 EXTERNUM 01/23/2013 RUBINAL 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, DELLA L 373.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 EXTERNUM 01/23/2013 MADL 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, DELLA L 373.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 EXTERNUM 01/23/2013 MADL 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, DELLA L 373.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 EXTERNUM 01/23/2013 MADL 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, DELLA L 373.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 EXTERNUM 01/23/2013 PEREZ DO, CATALINO K 373.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 EXTERNUM 01/23/2013 PEREZ DO, CATALINO K 373.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 EXTERNUM 03/11/2013 VIRY MORAN N Ot 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, 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 05/07/2013 JONNIE SAHU, DANIEL Rawls V03.82 PPV23 (PNEUMOVAX) DX 05/07/2013 DANIEL CRISTINA MD V03.82 PPV23 (PNEUMOVAX) DX 05/07/2013 PEREZ , CATALINO Matute V03.82 PPV23 (PNEUMOVAX) DX 05/07/2013 TIN OCASIO MD V03.82 PPV23 (PNEUMOVAX) DX 05/07/2013 [facility] 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, DELLA L V03.82 PPV23 (PNEUMOVAX) DX 05/07/2013 MADL 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, DELLA L V03.82 PPV23 (PNEUMOVAX) DX 05/07/2013 MADL 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, DELLA L V03.82 PPV23 (PNEUMOVAX) DX 05/07/2013 MADL 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, DELLA L V03.82 PPV23 (PNEUMOVAX) DX 05/07/2013 MADL 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, DELLA L V03.82 PPV23 (PNEUMOVAX) DX 05/07/2013 [...] FOOT EXCEPT TOE(S) ALONE COMPLICATED 08/28/2013 MADL 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, DELLA L 682.7 CELLULITIS AND ABSCESS OF FOOT EXCEPT TOES 08/28/2013 MADL 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, DELLA L 892.1 OPEN WOUND OF FOOT EXCEPT TOE(S) ALONE COMPLICATED 08/28/2013 MADL 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, DELLA L 682.7 CELLULITIS AND ABSCESS OF FOOT EXCEPT TOES 08/28/2013 MADL 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, DELLA L 892.1 OPEN WOUND OF FOOT EXCEPT TOE(S) ALONE COMPLICATED 08/28/2013 MADL 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, DELLA L 682.7 CELLULITIS AND ABSCESS OF FOOT EXCEPT TOES 08/28/2013 MADL 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, DELLA L 892.1 OPEN WOUND OF FOOT EXCEPT TOE(S) ALONE COMPLICATED 08/28/2013 MADL 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, DELLA L 682.7 CELLULITIS AND ABSCESS OF FOOT EXCEPT TOES 08/28/2013 MADL 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, DELLA L 892.1 OPEN WOUND OF FOOT EXCEPT TOE(S) ALONE COMPLICATED 08/28/2013 MADL 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, DELLA L 682.7 CELLULITIS AND ABSCESS OF FOOT EXCEPT TOES 08/28/2013 MADL 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, DELLA L 892.1 OPEN WOUND OF FOOT [...] EXCEPT TOE(S) ALONE COMPLICATED 10/01/2013 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 Ot 338.19 OTHER ACUTE PAIN 10/01/2013 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 Ot 724.2 LUMBAGO 02/15/2014 Ot 250.00 DIAB [...] Ot V58.69 OTH MED,LT, CURRENT USE 04/08/2014 MADL 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, DELLA L V05.8 ZOSTAVAX DX 04/08/2014 MADL 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, DELLA L V05.8 ZOSTAVAX DX 04/08/2014 MADL 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, DELLA L V05.8 ZOSTAVAX DX 04/08/2014 PEREZ DOCATALINO K V05.8 ZOSTAVAX DX 04/08/2014 PEREZ DOWAYNEA K V05.8 ZOSTAVAX DX 07/07/2014 VIRY MORAN Ot 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, 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 07/07/2014 VIRY MORAN Ot 250.00 DIAB ALONDRA WO COMPL, TYPE II OR UNSPEC TY 07/07/2014 VIRY MORAN Ot V58.67 LONG-TERM (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 07/07/2014 VIRY MORAN Ot V58.69 OTH MED,LT,CURRENT USE 08/05/2014 MAUDE NGP Ot V76.12 08/05/2014 MAUDE NG 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 Ot 204.10 08/05/2014 MAUDE NG 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 Ot 250.00 08/05/2014 MAUDE NG 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 Ot V58.67 08/05/2014 MAUDE NG 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 Ot V58.69 08/12/2014 MAUDE NG 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 Ot 793.80 09/05/2014 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 Ot 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 SYNOVIAL CYST 09/05/2014 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 Ot 924.11 CONTUSION OF KNEE 09/05/2014 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 Ot 959.7 LOWER LEG INJURY NOS 09/05/2014 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 Ot E000.8 OTHER EXTERNAL CAUSE STATUS 09/05/2014 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 Ot E849.0 ACCIDENT IN HOME 09/05/2014 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 Ot E888.9 FALL NOS 10/30/2014 Ot 272.4 11/02/2014 Ot 272.4 11/05/2014 Ot 204.10 11/05/2014 Ot 250.00 11/05/2014 Ot V58.67 11/05/2014 Ot V58.69 03/11/2015 SASHA, BOBAN N Ot 204.10 03/11/2015 SSAHA, BOBAN N Ot 250.00 03/11/2015 SASHA, BOBAN [...] 03/19/2015 SASHA, BOBAN N Ot V58.69 03/24/2015 VIRY MORAN N Ot 204.10 03/24/2015 VIRY MORAN N Ot 250.00 03/24/2015 VIRY MORAN N Ot V58.67 03/24/2015 VIRY MORAN N Ot V58.69 04/27/2015 SASHA BOBWILEY N Ot 204.10 04/27/2015 VIRY MORAN N Ot 250.00 04/27/2015 VIRY MORAN N Ot V58.67 04/27/2015 VIRY MORAN N Ot V58.69 05/05/2015 VIRY MORAN N Ot 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, 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 05/05/2015 VIRY MORAN N Ot 250.00 DIAB ALONDRA WO COMPL, TYPE II OR UNSPEC TY 05/05/2015 VIRY MORAN N Ot V58.67 LONG-TERM (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 05/05/2015 VIRY MORAN N Ot V58.69 OT MED,LT,CURRENT USE 07/07/2015 DELLA MCGEE 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 Ot R22.31 09/30/2015 MAUDE NG 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 Ot C91.10 09/30/2015 MAUDE NG 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 Ot E11.9 09/30/2015 MAUDE NG 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 Ot I10 09/30/2015 MAUDE NG 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 Ot Z79.4 09/30/2015 MAUDE NG 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 Ot Z79.899 10/21/2015 MARY SAHU, CHITO Rawls [...] HERNANDEZ MD Ot K57.90 10/26/2015 CHITO HERNANDEZ MD, Ot K62.1 10/26/2015 MARY SAHU, CHITO Rawls Ot Z12.11 12/23/2015 MAUDE NG Ot 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 LYMPHOCYTIC LEUK OF B-CELL TYPE 12/23/2015 MAUDE NG Ot E11.9 TYPE 2 DIABETES MELLITUS WITHOUT COMPLIC 12/23/2015 MAUDE NG Ot I10 ESSENTIAL (PRIMARY) HYPERTENSION 12/23/2015 MAUDE NG Ot Z79.4 LUNG PULLER (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 12/23/2015 MAUDE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 MONTSERRAT Ot Z86.73 PRSNL HX OF TIA (TIA), AND CEREB INFRC W 04/11/2018 KEIRA LÓPEZIS Ot Z87.448 PERSONAL HISTORY OF OTHER DISEASES OF UR 04/11/2018 KEIRA LÓPEZIS Ot Z98.51 TUBAL LIGATION STATUS 04/11/2018 MONTSERRAT LÓPEZ Ot Z98.890 OTHER SPECIFIED POSTPROCEDURAL STATES 04/22/2018 MARY SAHU, CHITO Rawls Ot C79.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 MALIGNANT NEOPLASM OF OTHER SP 04/30/2018 VIRY MORAN N Ot 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 LYMPHOCYTIC LEUK OF B-CELL TYPE 04/30/2018 SASHAVIRY ROWLAND N Ot E11.9 TYPE 2 DIABETES MELLITUS WITHOUT COMPLIC 04/30/2018 VIRY MORAN N Ot I10 ESSENTIAL (PRIMARY) HYPERTENSION 04/30/2018 VIRY MORAN N Ot Z79.4 LUNG PULLER (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 04/30/2018 VIRY MORAN N Ot Z79.899 OTHER CORRECTION (CURRENT) DRUG THERAPY 05/07/2018 VIRY MORAN N Ot 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 LYMPHOCYTIC LEUK OF B-CELL TYPE 05/07/2018 SASHAVIRY ROWLAND N Ot E11.9 TYPE 2 DIABETES MELLITUS WITHOUT COMPLIC 05/07/2018 VIRY MORAN N Ot I10 ESSENTIAL (PRIMARY) HYPERTENSION 05/07/2018 VIRY MORAN N Ot Z79.4 LUNG PULLER (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 05/07/2018 VIRY MORAN N Ot Z79.899 OTHER CORRECTION (CURRENT) DRUG THERAPY 05/07/2018 MARY SAHU, CHITO Rawls Ot R92.8 OTH ABN AND INCONCLUSIVE FINDINGS ON DX 05/07/2018 CHITO HERNANDEZ MD, Ot N63.10 UNSPECIFIED LUMP IN THE RIGHT BREAST, UN 05/07/2018 CHITO HERNANDEZ MD, Ot R92.8 OTH ABN AND INCONCLUSIVE FINDINGS ON DX 05/08/2018 CHITO HERNANDEZ MD, Ot C79.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 MALIGNANT NEOPLASM OF OTHER SP 05/16/2018 CHITO HERNANDEZ MD, Ot K80.20 CALCULUS OF GALLBLADDER W/O CHOLECYSTITI 05/21/2018 CHITO HERNANDEZ MD, Ot K80.20 CALCULUS OF GALLBLADDER W/O CHOLECYSTITI 05/22/2018 CHITO HERNANDEZ MD, Ot R92.8 OTH ABN AND INCONCLUSIVE FINDINGS ON DX 05/22/2018 CHITO HERNANDEZ MD, Ot C50.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 05/27/2018 HERNANDEZ MD, CHITO M Ot Z01.818 ENCOUNTER FOR OTHER PREPROCEDURAL EXAMIN 05/28/2018 MARY SAHU, CHITO M Ot Z01.818 ENCOUNTER FOR OTHER PREPROCEDURAL EXAMIN 05/28/2018 VIRY MORAN Ot 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, 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 05/28/2018 NGMAUDE Vernon S 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 Ot 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, 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 05/28/2018 NGRAFIAH S 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 Ot 250.00 DIAB ALONDRA WO COMPL, TYPE II OR UNSPEC TY 05/28/2018 NG HILAH S 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 Ot 438.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,HEMIPLEGIA AFFECTING 05/28/2018 NG HILAH S 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 Ot 780.79 OTH MALAISE FATIGUE 05/28/2018 NG HILAH S 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 Ot V58.67 LONG-TERM (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 05/28/2018 NG HILAH S 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 Ot V58.69 OTH MED,LT,CURRENT USE 05/28/2018 RAFI NGAH S 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 Ot 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, 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 05/28/2018 NGRAFIAH S 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 Ot V58.69 OTH MED,LT,CURRENT USE 05/28/2018 VIRY MORAN Ot 729.5 PAIN IN LIMB 05/28/2018 NGRAFIAH S 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 Ot 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, 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 05/28/2018 NGRAFIAH S 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 Ot 250.00 DIAB ALONDRA WO COMPL, TYPE II OR UNSPEC TY 05/28/2018 NGRAFIAH S 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 Ot V58.67 LONG-TERM (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 05/28/2018 NG HILAH S 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 Ot V58.69 OTH MED,LT,CURRENT USE 05/28/2018 NGRAFIAH S 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 Ot V76.12 OTH SCREEN MAMMO-MALIGN NEOPLASM OF SILVINA 05/28/2018 NG HILAH S 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 Ot 793.80 UNSPEC ABNORMAL MAMMOGRAM 05/28/2018 Ot 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, 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 05/28/2018 Ot 250.00 DIAB ALONDRA WO COMPL, TYPE II OR UNSPEC TY 05/28/2018 Ot V58.67 LONG-TERM ( 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 05/28/2018 Ot V58.69 OTH MED,LT, CURRENT USE 05/28/2018 Ot 272.4 HYPERLIPIDEMIA NEC/NOS 05/28/2018 DELLA MCGEE 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 Ot R22.31 LOCALIZED SWELLING, MASS AND LUMP, RIGHT 05/28/2018 MAUDE NG 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 Ot 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 LYMPHOCYTIC LEUK OF B-CELL TYPE 05/28/2018 MAUDE NG 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 Ot E11.9 TYPE 2 DIABETES MELLITUS WITHOUT COMPLIC 05/28/2018 MAUDE NG 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 Ot I10 ESSENTIAL (PRIMARY) HYPERTENSION 05/28/2018 MAUDE NG 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 Ot Z79.4 CORRECTION (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 05/28/2018 MAUDE NGP Ot Z79.899 OTHER CORRECTION (CURRENT) DRUG THERAPY 05/28/2018 MAUDE NGP Ot 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 LYMPHOCYTIC LEUK OF B-CELL TYPE 05/28/2018 MAUDE NG 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 Ot E11.9 TYPE 2 DIABETES MELLITUS WITHOUT COMPLIC 05/28/2018 MAUDE NG 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 Ot I10 ESSENTIAL (PRIMARY) HYPERTENSION 05/28/2018 MAUDE NG 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 Ot Z79.4 LUNG PULLER (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 05/28/2018 MAUDE NGP Ot Z79.899 OTHER LUNG PULLER (CURRENT) DRUG THERAPY 05/28/2018 MAUDE NGP Ot R92.8 OTH ABN AND INCONCLUSIVE FINDINGS ON DX 05/28/2018 VIRY MORAN Ot 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 LYMPHOCYTIC LEUK OF B-CELL TYPE 05/28/2018 VIRY MORAN Ot E11.9 TYPE 2 DIABETES MELLITUS WITHOUT COMPLIC 05/28/2018 VIRY MORAN Ot I10 ESSENTIAL (PRIMARY) HYPERTENSION 05/28/2018 VIRY MORAN Ot Z79.4 LUNG PULLER (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 05/28/2018 VIRY MORAN Ot Z79.899 OTHER LUNG PULLER (CURRENT) DRUG THERAPY 05/28/2018 ANTONINO WALLER APRN Ot N64.52 NIPPLE DISCHARGE 05/28/2018 MAUDE NG 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 Ot 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 LYMPHOCYTIC LEUK OF B-CELL TYPE 05/28/2018 MAUDE NG 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 Ot R22.31 LOCALIZED SWELLING, MASS AND LUMP, RIGHT 05/28/2018 MAUDE NG 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 Ot R92.8 OTH ABN AND INCONCLUSIVE FINDINGS ON DX 05/28/2018 MARY SAHU, CHITO Rawls Ot 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 05/28/2018 CHITO HERNANDEZ MD, Ot 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 05/28/2018 CHITO HERNANDEZ MD, Ot Z53.09 PROC/TRTMT NOT CARRIED OUT BECAUSE OF CO 05/28/2018 CHITO HERNANDEZ MD, Ot C79.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 MALIGNANT NEOPLASM OF OTHER SP 05/28/2018 CHITO HERNANDEZ MD, Ot R92.8 OTH ABN AND INCONCLUSIVE FINDINGS ON DX 05/28/2018 VIRY MORAN Ot 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 LYMPHOCYTIC LEUK OF B-CELL TYPE 05/28/2018 VIRY MORAN N Ot E11.9 TYPE 2 DIABETES MELLITUS WITHOUT COMPLIC 05/28/2018 VIRY MORAN N Ot I10 ESSENTIAL (PRIMARY) HYPERTENSION 05/28/2018 VIRY MORAN N Ot Z79.4 CORRECTION (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 05/28/2018 VIRY MORAN N Ot Z79.899 OTHER LUNG PULLER (CURRENT) DRUG THERAPY 05/28/2018 CHITO HERNANDEZ MD Ot C50.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 05/28/2018 CHITO HERNANDEZ MD Ot K80.20 CALCULUS OF GALLBLADDER W/O CHOLECYSTITI 05/28/2018 VIRY MORAN Ot 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 LYMPHOCYTIC LEUK OF B-CELL TYPE 05/28/2018 VIRY MORAN N Ot E11.9 TYPE 2 DIABETES MELLITUS WITHOUT COMPLIC 05/28/2018 VIRY MORAN N Ot I10 ESSENTIAL (PRIMARY) HYPERTENSION 05/28/2018 VIRY MORAN N Ot Z79.4 LUNG PULLER (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 05/28/2018 VIRY MORAN N Ot Z79.899 OTHER CORRECTION (CURRENT) DRUG THERAPY 05/28/2018 CHITO HERNANDEZ MD, Ot C50.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 05/28/2018 VIRY MORAN Ot 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, 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 05/28/2018 MAUDE NG 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 Ot 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, 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 05/28/2018 MAUDE NG S 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 Ot 250.00 DIAB ALONDRA WO COMPL, TYPE II OR UNSPEC TY 05/28/2018 MAUDE NG S 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 Ot 438.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,HEMIPLEGIA AFFECTING 05/28/2018 MAUDE NG S 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 Ot 780.79 OTH MALAISE FATIGUE 05/28/2018 MAUDE NG 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 Ot V58.67 LONG-TERM (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 05/28/2018 MAUDE NG 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 Ot V58.69 OTH MED,LT,CURRENT USE 05/28/2018 MAUDE NG 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 Ot 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, 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 05/28/2018 MAUDE NGP Ot V58.69 OTH MED,LT,CURRENT USE 05/28/2018 VIRY MORAN Ot 729.5 PAIN IN LIMB 05/28/2018 MAUDE NG 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 Ot 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, 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 05/28/2018 MAUDE NG 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 Ot 250.00 DIAB ALONDRA WO COMPL, TYPE II OR UNSPEC TY 05/28/2018 MAUDE NG S 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 Ot V58.67 LONG-TERM (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 05/28/2018 MAUDE NG 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 Ot V58.69 OTH MED,LT,CURRENT USE 05/28/2018 MAUDE NGP Ot V76.12 OTH SCREEN MAMMO-MALIGN NEOPLASM OF SILVINA 05/28/2018 MAUDE NG S 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 Ot 793.80 UNSPEC ABNORMAL MAMMOGRAM 05/28/2018 Ot 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, 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 05/28/2018 Ot 250.00 DIAB ALONDRA WO COMPL, TYPE II OR UNSPEC TY 05/28/2018 Ot V58.67 LONG-TERM ( 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 05/28/2018 Ot V58.69 OTH MED,LT, CURRENT USE 05/28/2018 Ot 272.4 HYPERLIPIDEMIA NEC/NOS 05/28/2018 DELLA MCGEE 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 Ot R22.31 LOCALIZED SWELLING, MASS AND LUMP, RIGHT 05/28/2018 MAUDE NG Janeen 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 Ot 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 LYMPHOCYTIC LEUK OF B-CELL TYPE 05/28/2018 RAFI NGLEXIE Vernon 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 Ot E11.9 TYPE 2 DIABETES MELLITUS WITHOUT COMPLIC 05/28/2018 NG RAFILEXIE S 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 Ot I10 ESSENTIAL (PRIMARY) HYPERTENSION 05/28/2018 RAFI NGLEXIE Vernon 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 Ot Z79.4 CORRECTION (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 05/28/2018 RAFI NGLEXIE S 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 Ot Z79.899 OTHER CORRECTION (CURRENT) DRUG THERAPY 05/28/2018 RAFI NGLEXIE Vernon 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 Ot 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 LYMPHOCYTIC LEUK OF B-CELL TYPE 05/28/2018 RAFI NGLEXIE Vernon 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 Ot E11.9 TYPE 2 DIABETES MELLITUS WITHOUT COMPLIC 05/28/2018 RAFI NGLEXIE Vernon 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 Ot I10 ESSENTIAL (PRIMARY) HYPERTENSION 05/28/2018 RAFI NGLEXIE Vernon 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 Ot Z79.4 CORRECTION (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 05/28/2018 RAFI NGLEXIE Vernon 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 Ot Z79.899 OTHER LUNG PULLER (CURRENT) DRUG THERAPY 05/28/2018 RAFI NGLEXIE Vernon 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 Ot R92.8 OTH ABN AND INCONCLUSIVE FINDINGS ON DX 05/28/2018 VIRY MORAN Ot 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 LYMPHOCYTIC LEUK OF B-CELL TYPE 05/28/2018 VIRY MORAN Ot E11.9 TYPE 2 DIABETES MELLITUS WITHOUT COMPLIC 05/28/2018 VIRY MORAN Ot I10 ESSENTIAL (PRIMARY) HYPERTENSION 05/28/2018 VIRY MORAN Ot Z79.4 LUNG PULLER (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 05/28/2018 VIRY MORAN Ot Z79.899 OTHER CORRECTION (CURRENT) DRUG THERAPY 05/28/2018 ANTONINO WALLER APRN Ot N64.52 NIPPLE DISCHARGE 05/28/2018 RAFI NGLEXIE S 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 Ot 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 LYMPHOCYTIC LEUK OF B-CELL TYPE 05/28/2018 BERENICE MAUDE S 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 Ot R22.31 LOCALIZED SWELLING, MASS AND LUMP, RIGHT 05/28/2018 MAUDE NG Janeen 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 Ot R92.8 OTH ABN AND INCONCLUSIVE FINDINGS ON DX 05/28/2018 MARY SAHU, CHITO Rawls Ot 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 05/28/2018 CHITO HERNANDEZ MD, Ot 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 05/28/2018 CHITO HERNANDEZ MD, Ot Z53.09 PROC/TRTMT NOT CARRIED OUT BECAUSE OF CO 05/28/2018 CHITO HERNANDEZ MD, Ot C79.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 MALIGNANT NEOPLASM OF OTHER SP 05/28/2018 CHITO HERNANDEZ MD, Ot R92.8 OTH ABN AND INCONCLUSIVE FINDINGS ON DX 05/28/2018 VIRY MORAN Ot 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 LYMPHOCYTIC LEUK OF B-CELL TYPE 05/28/2018 VIRY MORAN Ot E11.9 TYPE 2 DIABETES MELLITUS WITHOUT COMPLIC 05/28/2018 VIRY MORAN Ot I10 ESSENTIAL (PRIMARY) HYPERTENSION 05/28/2018 VIRY MORAN Ot Z79.4 CORRECTION (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 05/28/2018 VIRY MORAN Ot Z79.899 OTHER CORRECTION (CURRENT) DRUG THERAPY 05/28/2018 CHITO HERNANDEZ MD, Ot C50.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 05/28/2018 CHITO HERNANDEZ MD Ot K80.20 CALCULUS OF GALLBLADDER W/O CHOLECYSTITI 05/28/2018 CHITO HERNANDEZ MD, Ot K80.20 CALCULUS OF GALLBLADDER W/O CHOLECYSTITI 05/28/2018 CHITO HERNANDEZ MD, Ot R92.8 OTH ABN AND INCONCLUSIVE FINDINGS ON DX 05/28/2018 MAUDE NG Ot 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 LYMPHOCYTIC LEUK OF B-CELL TYPE 05/28/2018 MAUDE NG Ot R22.31 LOCALIZED SWELLING, MASS AND LUMP, RIGHT 05/28/2018 MAUDE NG Ot R92.8 OTH ABN AND INCONCLUSIVE FINDINGS ON DX Procedures Code Description [place] [address] ROUTINE VENIPUNCTURE 06/26/2012 39386 XRAY FOOT RIGHT COMP MIN 3 VIEWS 06/26/2012 28291 A1C (IN-HOUSE) 06/26/2012 09653 MICRO ALBUMIN-IN HOUSE 06/26/2012 76259 UA W/ CULTURE IF INDICATED 06/26/2012 67003 BMP 06/26/2012 6011465 GFR CALC (RESULT ONLY) 06/26/2012 64776 LIPID PANEL 07/03/2012 58767 VITAMIN D 25-HYDROXY (D2,D3 , TOTAL) 07/04/2012 16967 TSH 07/04/2012 99259 ROUTINE VENIPUNCTURE 07/04/2012 61060 BARIUM SWALLOW XRAY MODIFIED 07/04/2012 Physical Speech Therapy, [facility] 08/22/2012 21460 ROUTINE VENIPUNCTURE 10/16/2012 75938 MICRO ALBUMIN-IN HOUSE 10/16/2012 04246 A1C (IN-HOUSE) 10/16/2012 55334 CMP 10/16/2012 9841642 GFR CALC (RESULT ONLY) 10/16/2012 28293 CBC 10/16/2012 89794 ROUTINE VENIPUNCTURE 11/13/2012 26829 CBC 11/13/2012 89396 PERIPHERIAL BLOOD SMEAR 11/19/2012 [id number] HEMATOLOGY OTHER REPORT 11/20/2012 95325 ROUTINE VENIPUNCTURE 11/28/2012 Medical O Viry Moran 11/28/2012 27082 PERIPHERAL BLOOD FLOW CYTOMETRY 12/02/2012 76847 ROUTINE VENIPUNCTURE 01/23/2013 16650 A1C (IN-HOUSE) 01/23/2013 22288 MICRO ALBUMIN-IN HOUSE 01/23/2013 76554 BMP 01/23/2013 54166 MAGNESIUM 01/23/2013 [id number] GFR CALC (RESULT ONLY) 01/23/2013 23440 A1C (IN-HOUSE) 05/07/2013 79371 ROUTINE VENIPUNCTURE 09/11/2013 66255 HEMOGLOBIN (IN-HOUSE) 09/11/2013 12864 A1C (IN-HOUSE) 09/11/2013 73993 CMP 09/11/2013 85292 LIPID PANEL 09/11/2013 11293 MAGNESIUM 09/11/2013 1666112 GFR CALC (RESULT ONLY) 09/11/2013 12279 MICROALBUMIN 09/11/2013 87327 ROUTINE VENIPUNCTURE 11/24/2013 25108 BMP 11/24/2013 22882 A1C (IN-HOUSE) 01/07/2014 82524 A1C (IN-HOUSE) 04/08/2014 56776 A1C (IN-HOUSE) 07/08/2014 90035 US BREAST ULTRASOUND, RIGHT 07/22/2014 50454 MAMMOGRAM DX, RIGHT 07/22/2014 Results Test Result [...] ALT (SGPT) 24 IU/L 0-32 Microalb/Creat Ratio, [facility] Ur - 09/13/16 11:35 Creatinine, Urine 220.3 [...] 7-25 CREATININE 0.89 mg/dL 0.50-0.99 eGFR NON-AFR. PARAGUAYAN 68 mL/min/1.73m2 > OR=60 eGFR 78 mL/min/1.73m2 [...] microcytes detection by light microscopy SLIGHT NRG Methicillin resistant Staphylococcus aureus (MRSA) screening culture - 11:35 Methicillin resistant Staphylococcus aureus (MRSA) screening culture NEG NRG Capillary blood glucose measurement by glucometer (mass/volume) - 03/29/18 11: 45 Capillary blood glucose measurement by glucometer (mass/volume) 242 mg/dL 70-110 Capillary blood glucose measurement by glucometer (mass/volume) - 03/29/18 14: 30 Capillary blood glucose measurement by glucometer (mass/volume) 190 mg/dL 70-110 Capillary blood glucose measurement by glucometer (mass/volume) - 05/29/18 09: 15 Capillary blood glucose measurement by glucometer (mass/volume) 144 mg/dL 70-110 Complete blood count (CBC) with automated white blood cell (WBC) differential - 05/29/18 09:30 Blood leukocytes automated count (number/volume) 13.0 10*3/uL 4.3-11.0 Blood erythrocytes automated count (number/volume) 4.11 10*6/uL 4.35-5.85 Venous blood hemoglobin measurement (mass/volume) 12.5 g/dL 11.5-16.0 Blood hematocrit (volume fraction) 39 % 35-52 Automated erythrocyte mean corpuscular volume 94 [foz_us] 80-99 Automated erythrocyte mean corpuscular hemoglobin (mass per erythrocyte) 30 pg 25-34 Automated erythrocyte mean corpuscular hemoglobin concentration measurement ( mass/volume) 32 g/dL 32-36 Automated erythrocyte distribution width ratio 14.9 % 10.0-14.5 Automated blood platelet count (count/volume) 175 10*3/uL 130-400 Automated blood platelet mean volume measurement 11.8 [foz_us] 7.4-10.4 Automated blood neutrophils/100 leukocytes 20 % 42-75 Automated blood lymphocytes/100 leukocytes 74 % 12-44 Blood monocytes/100 leukocytes 4 % 0-12 Automated blood eosinophils/100 leukocytes 2 % 0-10 Automated blood basophils/100 leukocytes 0 % 0-10 Blood neutrophils automated count (number/volume) 2.6 10*3 1.8-7.8 Blood lymphocytes automated count (number/volume) 9.7 10*3 1.0-4.0 Blood monocytes automated count (number/volume) 0.5 10*3 0.0-1.0 Automated eosinophil count 0.2 10*3/uL 0.0-0.3 Automated blood basophil count (count/volume) 0.1 10*3/uL 0.0-0.1 Blood manual differential performed detection - 05/29/18 09:30 Blood monocytes/100 leukocytes 2 % NRG Manual blood segmented neutrophils/100 leukocytes 20 % NRG Blood band neutrophils/100 leukocytes 1 % NRG Manual blood lymphocytes/100 leukocytes 76 % NRG Manual eosinophils/100 leukocytes in nose 1 % NRG Manual blood basophils/100 leukocytes 0 % NRG Blood smudge cells detection by light microscopy SLIGHT NRG Blood ovalocytes detection by light microscopy SLIGHT NRG Blood poikilocytosis detection by light microscopy SLIGHT NRG Methicillin resistant Staphylococcus aureus (MRSA) screening culture - 09:30 Methicillin resistant Staphylococcus aureus (MRSA) screening culture NEG NRG Capillary blood glucose measurement by glucometer (mass/volume) - 05/29/18 15: 34 Capillary blood glucose measurement by glucometer (mass/volume) 213 mg/dL 70-110 Capillary blood glucose measurement by glucometer (mass/volume) - 05/29/18 20: 28 Capillary blood glucose measurement by glucometer (mass/volume) 216 mg/dL 70-110 Capillary blood glucose measurement by glucometer (mass/volume) - 05/30/18 05: 29 Capillary blood glucose measurement by glucometer (mass/volume) 207 mg/dL 70-110 Capillary blood glucose measurement by glucometer (mass/volume) - 05/30/18 11: 02 Capillary blood glucose measurement by glucometer (mass/volume) 214 mg/dL 70-110 Capillary blood glucose measurement by glucometer (mass/volume) - 05/30/18 16: 17 Capillary blood glucose measurement by glucometer (mass/volume) 190 mg/dL 70-110 Capillary blood glucose measurement by glucometer (mass/volume) - 05/30/18 20: 01 Capillary blood glucose measurement by glucometer (mass/volume) 209 mg/dL 70-110 Complete blood count (CBC) with automated white blood cell (WBC) differential - 05/31/18 05:20 Blood leukocytes automated count (number/volume) 12.9 10*3/uL 4.3-11.0 Blood erythrocytes automated count (number/volume) 3.44 10*6/uL 4.35-5.85 Venous blood hemoglobin measurement (mass/volume) 10.2 g/dL 11.5-16.0 Blood hematocrit (volume fraction) 33 % 35-52 Automated erythrocyte mean corpuscular volume 97 [foz_us] 80-99 Automated erythrocyte mean corpuscular hemoglobin (mass per erythrocyte) 30 pg 25-34 Automated erythrocyte mean corpuscular hemoglobin concentration measurement ( mass/volume) 31 g/dL 32-36 Automated erythrocyte distribution width ratio 15.4 % 10.0-14.5 Automated blood platelet count (count/volume) 168 10*3/uL 130-400 Automated blood platelet mean volume measurement 12.1 [foz_us] 7.4-10.4 Automated blood neutrophils/100 leukocytes 31 % 42-75 Automated blood lymphocytes/100 leukocytes 62 % 12-44 Blood monocytes/100 leukocytes 5 % 0-12 Automated blood eosinophils/100 leukocytes 1 % 0-10 Automated blood basophils/100 leukocytes 0 % 0-10 Blood neutrophils automated count (number/volume) 4.1 10*3 1.8-7.8 Blood lymphocytes automated count (number/volume) 8.1 10*3 1.0-4.0 Blood monocytes automated count (number/volume) 0.6 10*3 0.0-1.0 Automated eosinophil count 0.1 10*3/uL 0.0-0.3 Automated blood basophil count (count/volume) 0.1 10*3/uL 0.0-0.1 Whole blood basic metabolic panel - 05/31/18 05:20 Serum or plasma sodium measurement (moles/volume) 138 mmol/L 135-145 Serum or plasma potassium measurement (moles/volume) 3.9 mmol/L 3.6-5.0 Serum or plasma chloride measurement (moles/volume) 106 mmol/L 98-107 Carbon dioxide 21 mmol/L 21-32 Serum or plasma anion gap determination (moles/volume) 11 mmol/L 5-14 Serum or plasma urea nitrogen measurement (mass/volume) 17 mg/dL 7-18 Serum or plasma creatinine measurement (mass/volume) 0.84 mg/dL 0.60-1.30 Serum or plasma urea nitrogen/creatinine mass ratio 20 NRG Serum or plasma creatinine measurement with calculation of estimated glomerular filtration rate > NRG Serum or plasma glucose measurement (mass/volume) 224 mg/dL 70-105 Serum or plasma calcium measurement (mass/volume) 8.8 mg/dL 8.5-10.1 Capillary blood glucose measurement by glucometer (mass/volume) - 05/31/18 05: 35 Capillary blood glucose measurement by glucometer (mass/volume) 211 mg/dL 70-110 Capillary blood glucose measurement by glucometer (mass/volume) - 05/31/18 10: 55 Capillary blood glucose measurement by glucometer (mass/volume) 239 mg/dL 70-110 Capillary blood glucose measurement by glucometer (mass/volume) - 05/31/18 16: 07 Capillary blood glucose measurement by glucometer (mass/volume) 320 mg/dL 70-110 Capillary blood glucose measurement by glucometer (mass/volume) - 05/31/18 20: 34 Capillary blood glucose measurement by glucometer (mass/volume) 309 mg/dL 70-110 Capillary blood glucose measurement by glucometer (mass/volume) - 06/01/18 05: 55 Capillary blood glucose measurement by glucometer (mass/volume) 237 mg/dL 70-110 Capillary blood glucose measurement by glucometer (mass/volume) - 06/01/18 11: 19 Capillary blood glucose measurement by glucometer (mass/volume) 345 mg/dL 70-110 Capillary blood glucose measurement by glucometer (mass/volume) - 06/01/18 16: 05 Capillary blood glucose measurement by glucometer (mass/volume) 269 mg/dL 70-110 Capillary blood glucose measurement by glucometer (mass/volume) - 06/01/18 21: 18 Capillary blood glucose measurement by glucometer (mass/volume) 331 mg/dL 70-110 Capillary blood glucose measurement by glucometer (mass/volume) - 06/02/18 06: 42 Capillary blood glucose measurement by glucometer (mass/volume) 284 mg/dL 70-110 Capillary blood glucose measurement by glucometer (mass/volume) - 06/02/18 08: 00 Capillary blood glucose measurement by glucometer (mass/volume) 268 mg/dL 70-110 Capillary blood glucose measurement by glucometer (mass/volume) - 06/02/18 11: 13 Capillary blood glucose measurement by glucometer (mass/volume) 316 mg/dL 70-110 Capillary blood glucose measurement by glucometer (mass/volume) - 06/02/18 16: 07 Capillary blood glucose measurement by glucometer (mass/volume) 316 mg/dL 70-110 Capillary blood glucose measurement by glucometer (mass/volume) - 06/02/18 20: 42 Capillary blood glucose measurement by glucometer (mass/volume) 247 mg/dL 70-110 Capillary blood glucose measurement by glucometer (mass/volume) - 06/03/18 05: 44 Capillary blood glucose measurement by glucometer (mass/volume) 282 mg/dL 70-110 Capillary blood glucose measurement by glucometer (mass/volume) - 06/03/18 11: 24 Capillary blood glucose measurement by glucometer (mass/volume) 255 mg/dL 70-110 Encounters ACCT No. Visit Date/Time Discharge Status Pt. Type Provider Facility Loc./Unit Complaint [id number] 10/14/2014 10:54:00 10/14/2014 23:59:59 CLS Outpatient CATALINO PEREZ DO [id number] 07/08/2014 13:33:00 07/08/2014 23:59:59 CLS Outpatient CATALINO PEREZ DO [id number] 07/08/2014 13:33:00 07/08/2014 23:59:59 CLS Outpatient 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DELLA [id number] 04/08/2014 13:02:00 04/08/2014 23:59:59 CLS Outpatient 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JOSEA L [id number] 04/08/2014 13:02:00 04/08/2014 23:59:59 CLS Outpatient 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 DELLA L [id number] 01/07/2014 14:50:00 01/07/2014 23:59:59 CLS Outpatient DELLA MCGEE APRN [id number] 01/07/2014 14:50:00 01/07/2014 23:59:59 CLS Outpatient DELLA MCGEE APRN [id number] 12/23/2013 14:44:00 12/23/2013 23:59:59 CLS Outpatient TIN OCASIO MD [id number] 11/24/2013 09:00:00 11/24/2013 23:59:59 CLS Outpatient CATALINO PEREZ DO [id number] 09/11/2013 09:49:00 09/11/2013 23:59:59 CLS Outpatient DANIEL CRISTINA MD [id number] 05/07/2013 16:19:00 05/07/2013 23:59:59 CLS Outpatient DANIEL CRISTINA MD [id number] 10/16/2012 09:04:00 10/16/2012 23:59:59 CLS Outpatient DANIEL CRISTINA MD [id number] 09/02/2012 18:28:00 09/02/2012 23:59:59 CLS Outpatient CATALINO PEREZ DO [id number] 07/03/2012 08:01:00 07/03/2012 23:59:59 [place] [id number] 07/03/2012 08:01:00 07/03/2012 23:59:59 CLS Outpatient [id number] 01/23/2013 10:45:00 Document Registration [id number] 12/25/2012 15:29:00 Document Registration [id number] 11/28/2012 13:45:00 Document Registration [id number] 11/19/2012 14:35:00 Document Registration [id number] 11/13/2012 09:51:00 Document Registration [id number] 02/27/2018 14:00:00 02/27/2018 23:59:59 [facility] [id number] 07/04/2017 11:20:00 Document Registration [id number] 05/29/2018 09:00:00 05/29/2018 23:59:59 CLS Outpatient CHITO HERNANDEZ MD [facility] 4TH GALLSTONES, METASTATIC DUCTAL CARCINOMA RT BREAST [id number] 05/27/2018 05:38:00 05/27/2018 14:02:00 DIS Outpatient CHITO HERNANDEZ MD [facility] PREOP GALLSTONES, METASTATIC DUCTAL CARCINOMA RT BREAST [id number] 05/15/2018 14:56:00 05/15/2018 23:59:59 CLS Outpatient CHITO HERNANDEZ MD [facility] RAD RUQ PAIN,GALLSTONES [id number] 05/14/2018 10:05:00 05/14/2018 23:59:59 CLS Outpatient CHITO HERNANDEZ MD [facility] CARD METASTATIC BREAST CANCER [id number] 05/10/2018 11:46:00 05/10/2018 23:59:59 CLS Preadmit CHITO HERNANDEZ MD [facility] RAD METASTATIC BREAST CANCER [id number] 05/07/2018 13:21:00 05/07/2018 23:59:59 CLS Outpatient CHITO HERNANDEZ MD [facility] RAD METASTATIC BREAST CA, ABN MRI [id number] 05/07/2018 10:17:00 05/07/2018 23:59:59 CLS Outpatient VIRY MORAN [facility] ONC [id number] 04/10/2018 10:17:00 05/07/2018 10:13:00 DIS Outpatient VIRY MORAN [facility] ONC [id number] 04/09/2018 14:21:00 04/09/2018 15:09:00 DIS Emergency MONTSERRAT LÓPEZ [facility] ER POST OP SITE OOZING [id number] 04/05/2018 07:45:00 04/05/2018 23:59:59 CLS Outpatient CHITO HERNANDEZ MD [facility] RAD C79.9 METASTATIC CA [id number] 04/04/2018 07:45:00 04/04/2018 23:59:59 CLS Outpatient CHITO HERNANDEZ MD [facility] LAB METASTATIC CANCER RIGHT AXILLA [id number] 03/29/2018 11:20:00 03/29/2018 15:35:00 DIS Outpatient CHITO HERNANDEZ MD [facility] SDC RIGHT AXILLA LUMP [id number] 03/27/2018 05:35:00 03/27/2018 23:59:59 CLS Outpatient MARY SAHU, CHITO Rawls [facility] PREOP RIGHT AXILLA LUMP [id number] 03/04/2018 10:21:00 03/04/2018 23:59:59 CLS Outpatient 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 NG 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 [facility] RAD 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 [id number] 10/02/2017 14:07:00 10/02/2017 00:01:00 DIS Outpatient VIRY MORAN [facility] ONC [id number] 08/23/2017 20:53:00 08/23/2017 23:20:00 DIS Emergency DOMINIQUE SAHU, RUBY Darby [facility] ER LT RIB/HIP PAIN AFTER FALL [id number] 08/09/2017 10:08:00 08/09/2017 13:06:00 DIS Emergency 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 APRN [facility] ER NAUSEA,HEADACHE,ABD PAIN [id number] 12/20/2016 09:31:00 03/20/2017 00:01:00 DIS Outpatient VIRY MORAN [facility] ONC [id number] 03/01/2017 08:42:00 03/01/2017 23:59:59 CLS Outpatient ANTONINO WALLER APRN [facility] RAD N64.52 BLOODY DISCHARGE FROM R NIPPLE [id number] 11/20/2016 16:08:00 11/20/2016 17:58:00 DIS Emergency ALMA SAHU, EDWIN Carvajal [facility] ER COUGH/BACK PAIN [id number] 07/19/2016 09:09:00 10/17/2016 00:01:00 DIS Outpatient VIRY MORAN [facility] ONC [id number] 06/21/2016 13:05:00 06/21/2016 23:59:59 CLS Outpatient MAUDE NG 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 [facility] RAD ABNORMAL MAMMO [id number] 03/15/2016 08:55:00 03/15/2016 23:59:59 CLS Outpatient VIRY MORAN [facility] ONC [id number] 01/03/2016 13:34:00 01/03/2016 14:45:00 DIS Emergency JAYSON SAHU, JORGE LUIS [place] [facility] ER LEFT HAND INJURY [id number] 12/22/2015 13:21:00 12/22/2015 23:59:59 CLS Outpatient MAUDE NG 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 [facility] ONC [id number] 10/25/2015 09:32:00 10/25/2015 12:15:00 DIS Outpatient CHITO HERNANDEZ MD [facility] SDC SCREENING [id number] 10/21/2015 06:12:00 10/21/2015 12:31:00 DIS Outpatient CHITO HERNANDEZ MD [facility] PREOP SCREENING [id number] 09/16/2015 09:27:00 09/16/2015 23:59:59 CLS Outpatient MAUDE NG 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 [facility] ONC [id number] 06/14/2015 13:45:00 06/14/2015 23:59:59 CLS Outpatient DELLA MCGEE 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 [facility] RAD RT AXILLARY KNOT [id number] 03/18/2015 12:42:00 05/05/2015 00:01:00 DIS Outpatient VIRY MORAN [facility] ONC [id number] 09/05/2014 10:01:00 09/05/2014 12:42:00 DIS Emergency 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 [facility] ER LEG SWELLING [id number] 07/22/2014 13:16:00 07/22/2014 23:59:59 CLS Outpatient MAUDE NG 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 [facility] RAD ABNORMAL MAMMO [id number] 07/15/2014 10:28:00 07/15/2014 23:59:59 CLS Outpatient MAUDE NG 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 [facility] RAD SCREENING [id number] 07/08/2014 09:25:00 07/08/2014 23:59:59 CLS Outpatient MAUDE NG 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 [facility] ONC [id number] 04/08/2014 09:04:00 07/07/2014 00:01:00 DIS Outpatient VIRY MORAN [facility] ONC [id number] 04/08/2014 10:11:00 04/08/2014 23:59:59 CLS Outpatient VIRY MORAN Sofia [facility] RAD LEFT L/E PAIN AND SWELLING [id number] 11/19/2013 10:00:00 11/19/2013 23:59:59 CLS Outpatient MAUDE NG 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 [facility] ONC [id number] 10/01/2013 12:28:00 10/01/2013 14:10:00 DIS Emergency GOMEZFRANCISCO APRN [facility] ER BACK PAIN [id number] 06/19/2013 09:12:00 09/17/2013 00:01:00 DIS Outpatient [id number] 08/27/2013 12:11:00 08/27/2013 14:51:00 DIS Emergency JAMIE GAMBLE DO [facility] ER [id number] 08/19/2013 13:43:00 08/19/2013 23:59:59 CLS Outpatient [id number] 03/20/2013 12:45:00 03/20/2013 23:59:59 CLS Outpatient MAUDE NG 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 [facility] ONC [id number] 12/26/2012 13:21:00 03/11/2013 00:01:00 DIS Outpatient VIRY MORAN Sof[place] [facility] ONC [id number] 12/18/2012 07:59:00 12/18/2012 23:59:59 CLS Outpatient VIRY MORAN [place] [facility] RAD CLL [id number] 04/04/2016 10:34:00 Document Registration [id number] 04/04/2016 10:34:00 Document Registration [id number] 10/30/2014 14:04:00 Document Registration [id number] 10/14/2014 09:41:00 Document Registration [id number] 02/15/2014 19:45:00 Document Registration [id number] 07/09/2012 10:29:00 Document Registration [id number] 07/10/2011 12:49:00 Document Registration [id number] 05/26/2011 12:31:00 Document Registration [id number] 05/23/2011 23:45:00 Document Registration [id number] 10/06/2010 13:20:00 Document Registration [id number] 03/22/2017 08:46:00 Document Registration [id number] 03/18/2015 12:43:03 ACT Document Registration [id number] 09/14/2016 12:10:00 Document Registration [id number] 04/20/2016 08:07:00 Document Registration [id number] 05/10/2016 08:06:00 Document Registration
--- OUTSIDE RECORDS SUMMARY | 2018-06-04 14:18 | XMS REPORT ---
Author Author DELLA MCGEE [facility] Address [address] [place] [address] Care Team Providers Care Spindle Plumber Name Role Phone DELLA MCGEE Unavailable PROBLEMS Type Condition ICD9-CM Code UQX26-ZE Code Onset Dates Condition Status SNOMED Code Problem History of CVA (cerebrovascular accident) Z86.73 Active 449628740 Problem senior living current use of insulin Z79.4 Active 771350184 Problem Essential hypertension I10 Active 15154372 Problem Type 2 diabetes mellitus with diabetic neuropathy E11.40 Active 66637856 Problem Other obesity due to excess calories E66.09 Active 356364794 Problem Chronic idiopathic constipation K59.04 Active 52821527 Problem 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 Active 38587578 Problem Mixed hyperlipidemia E78.2 Active 440697894 Problem Osteoarthritis of right knee M17.9 Active 629974719 Problem History of renal failure Z87.448 Active [id number] ALLERGIES No Information ENCOUNTERS Encounter Location Date Diagnosis [facility] [address] [place] [address] 92389- 4161 Jun, [facility] [id number] [place] [address] 62986- 0885 May, [facility] [id number] [place] [address] 25297- 8985 May, [facility] [id number] [place] [address] 62118- 9941 Mar, Essential hypertension I10 and Type 2 diabetes mellitus with diabetic neuropathy E11.40 [facility] [id number] [place] [address] 06757- 9321 Mar, [facility] [id number] [place] [address] 08293- 8044 Mar, Essential hypertension I10 [facility] [address] [place] [address] 24324- 0350 Mar, Type 2 diabetes mellitus with diabetic neuropathy E11.40 [facility] [address] [place] [address] [id number] Feb, Dental caries K02.9 [facility] [id number] [place] [address] 92087- 5415 Feb, [facility] [id number] [place] [address] 64550- 2877 Feb, Type 2 diabetes mellitus with diabetic neuropathy E11.40 ; Essential hypertension I10 ; Mixed hyperlipidemia E78.2 ; History of CVA ( cerebrovascular accident) Z86.73 ; Other obesity due to excess calories E66.09 and Body mass index (BMI) of 31.0-31.9 in adult Z68.31 [facility] [id number] [place] [address] [id number] Jan, Dental examination Z01.20 [place] [address] [place] [address] 39543- 1961 Jan, Type 2 diabetes mellitus with diabetic neuropathy E11.40 [facility] [id number] [place] [address] [id number] Nov, Dental caries K02.9 [place] [address] [place] [address] 82390- 8745 Nov, Type 2 diabetes mellitus with diabetic neuropathy E11.40 [facility] [address] [place] [address] 84587- 6560 03 Nov, 2017 Medicare annual wellness visit, initial Z00.00 ; Type 2 diabetes mellitus with diabetic neuropathy E11.40 ; 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.4 ; 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 ; Essential hypertension I10 ; Mixed hyperlipidemia E78.2 ; History of CVA (cerebrovascular accident) Z86.73 ; History of renal failure Z87.448 ; Osteoarthritis of right knee M17.9 and Encounter for immunization Z23 [place] [address] [place] [id number] [id number] 03 Nov, 2017 Dental examination Z01.20 [facility] [id number] [place] [address] 80255- 7749 21 Oct, 2017 Type 2 diabetes mellitus with diabetic neuropathy E11.40 ; 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.4 ; 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 ; History of renal failure Z87.448 ; Mild single current episode of major depressive disorder F32.0 ; Essential hypertension I10 ; Mixed hyperlipidemia E78.2 and Chronic idiopathic constipation K59.04 [facility] [address] [place] [address] 20690 -0585 15 Oct, 2017 Type 2 diabetes mellitus with diabetic neuropathy E11.40 ; Dental caries extending into pulp K02.9 ; Nausea and vomiting, intractability of vomiting not specified, unspecified vomiting type R11.2 and Chronic idiopathic constipation K59.04 [place] [address] [place] [address] 48628- 6219 Oct, Type 2 diabetes mellitus with diabetic neuropathy E11.40 [facility] [address] [place] [address] 46580- 4763 Aug, [place] [address] [place] [address] 99464- 3104 Jul, Type 2 diabetes mellitus with diabetic neuropathy E11.40 [facility] [address] [place] [address] 01354 -3042 Jul, Muscle spasm of back M62.830 [facility] [address] [place] [address] 52291- 9191 Jun, Type 2 diabetes mellitus with diabetic neuropathy E11.40 ; senior living current use of insulin Z79.4 ; 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 ; History of renal failure Z87.448 and Mild single current episode of major depressive disorder F32.0 [facility] [address] [place] [address] 05570- 1043 Mar, Type 2 diabetes mellitus with diabetic neuropathy E11.40 ; 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.4 ; 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 ; History of renal failure Z87.448 ; Mild single current episode of major depressive disorder F32.0 ; Pain in right knee M25.561 and Encounter for immunization Z23 [facility] [address] [address]- 8635 Feb, Bloody discharge from right nipple N64.52 [facility] [id number] [place] [address] 54955- 1351 Feb, [facility] [address] [place] [address] 26437- 3341 Feb, [facility] [address] [place] [address] 97913- 2353 December, Type 2 diabetes mellitus with diabetic neuropathy E11.40 [facility] [address] [place] [address] 29427- 8162 December, Type 2 diabetes mellitus with diabetic neuropathy E11.40 ; 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.4 ; 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 ; History of renal failure Z87.448 ; Mild single current episode of major depressive disorder F32.0 and Pain in right knee M25.561 [facility] [address] [place] [address] 26354- 5745 Nov, Type 2 diabetes mellitus with diabetic neuropathy E11.40 ; 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.4 ; 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 ; History of renal failure Z87.448 ; Mild single current episode of major depressive disorder F32.0 and Pain in right knee M25.561 [facility] [address] [place] [address] 09026- 6140 Sep, Osteoarthritis of right knee M17.9 [facility] [address] [place] [address] 84253- 6509 Sep, Type 2 diabetes mellitus with diabetic neuropathy E11.40 ; senior living current use of insulin Z79.4 ; Chronic myeloid leukemia in [facility] C92.11 ; History of renal failure Z87.448 ; Mild single current episode of major depressive disorder F32.0 and Pain in right knee M25.561 [place] [address] [place] [address] 46130- 8736 Aug, Type 2 diabetes mellitus with diabetic neuropathy E11.40 [place] [address] [place] [address] 92628- 7083 Jul, Type 2 diabetes mellitus with diabetic neuropathy E11.40 ; senior living current use of insulin Z79.4 ; Chronic myeloid leukemia in [place] 778622.11 ; History of renal failure Z87.448 and Mild single current episode of major depressive disorder F32.0 [place] [address] [place] [address] 14775- 6001 Jun, [place] [address] 81485- 5339 May, Type 2 diabetes mellitus with diabetic neuropathy E11.40 [place] [address] [place] [address] 09228- 7826 24 May, 2016 Tendonitis M77.9 [place] [address] [place] [address] 37969- 9106 04 May, 2016 Type 2 diabetes mellitus with diabetic neuropathy E11.40 ; 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11 ; History of renal failure Z87.448 ; Mild single current episode of major depressive disorder F32.0 and Right foot pain M79.671 [facility] [address] [address]- 0481 Feb, History of renal failure Z87.448 [place] [address] [place] [address] 84519- 0948 Feb, Type 2 diabetes mellitus with diabetic neuropathy E11.40 ; senior living current use of insulin Z79.4 ; Chronic myeloid leukemia in [facility] C92.11 ; History of renal failure Z87.448 and Mild single current episode of major depressive disorder F32.0 [place] [address] [place] [address] 25971- 0870 Feb, 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 [place] [address] [place] [address] 72561- 6832 Feb, Type 2 diabetes mellitus with diabetic neuropathy E11.40 ; 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.4 ; Chronic myeloid leukemia in [facility] C92.11 ; Essential hypertension I10 ; Mixed hyperlipidemia E78.2 ; History of CVA (cerebrovascular accident) Z86.73 ; History of renal failure Z87.448 and Mild single current episode of major depressive disorder F32.0 [place] [address] [place] [address] 88563- 6608 Jan, Type 2 diabetes mellitus with diabetic neuropathy E11.40 ; senior living current use of insulin Z79.4 ; Chronic myeloid leukemia in [facility] C92.11 ; Essential hypertension I10 ; Mixed hyperlipidemia E78.2 ; History of CVA (cerebrovascular accident) Z86.73 and History of renal failure Z87.448 [place] [address] [address]- 2155 Jan, [facility] [address] [place] [address] 62923 -8401 Jan, Cellulitis of hand, left L03.114 [place] [address] [place] [address] 22767- 8672 Nov, Osteoarthritis of right knee M17.9 [place] [address] [place] [address] 11857- 7281 Sep, Type 2 diabetes mellitus with diabetic neuropathy E11.40 ; 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.4 ; 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 ; Essential hypertension I10 ; Mixed hyperlipidemia E78.2 and History of CVA (cerebrovascular accident) Z86.73 [place] [address] [place] [address] 36780- 4105 Aug, Osteoarthritis of right knee M17.9 [place] [address] [place] [address] 73648- 1498 Aug, Pain in right knee M25.561 [place] [address] [place] [address] 12288- 3571 Jul, [place] [address] 54545- 1322 Jun, [place] [address] 07625- 1868 Jun, Axillary lump, right R22.31 [place] [address] 92574- 3349 Jun, Type 2 diabetes mellitus with diabetic neuropathy E11.40 ; Encounter for immunization Z23 ; senior living current use of insulin Z79.4 ; 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 ; Essential hypertension I10 ; Mixed hyperlipidemia E78.2 ; History of CVA (cerebrovascular accident) Z86.73 and Axillary lump, right R22.31 [place] [address] [place] [address] 96448- 9882 Mar, Hyperlipidemia 272.4 [place] [address] 40302- 8026 Mar, Right knee pain 719.46 [place] [address] [place] [address] 93955- 0644 Mar, Rotator cuff impingement syndrome of left shoulder 726.10 [facility] [address] [address]- 2074 Feb, [facility] [address] [place] [address] 35021- 8886 Feb, Chronic myeloid leukemia, without mention of having achieved remission 205.10 ; Essential hypertension, malignant 401.0 ; Unspecified hereditary and idiopathic peripheral neuropathy 356.9 ; Diabetes mellitus type 2, controlled, with complications 250.90 ; Hyperlipidemia 272.4 and Pain, joint, shoulder, left 719.41 [facility] [address] [address]- 8225 Jan, [facility] [address] [place] [address] 51592- 5183 Nov, [facility] [address] [place] [address] 78720- 2236 Nov, [facility] [address] [place] [address] 42541- 8434 Oct, [facility] [address] [address]- 1553 Oct, [facility] [address] [place] [address] 32022- 0708 Oct, [facility] [address], [place] [address]- 9250 Oct, [facility] [address], [place] [address]- 0734 Oct, [facility] [address], [place] [address]- 9194 Oct, [facility] [id number] [place] [address] 58674- 2476 Sep, [facility] [address], [place] [address]- 4476 Sep, [facility] [id number] [place] [address] 52157- 9751 Aug, [facility] [place] [facility] [address] [id number] [place] 7555 Aug, [facility] [place] [facility] [address] [id number] [place] 1391 Jul, [facility] [place] [facility] [address] [id number] [place] 6126 Jul, [facility] [place] [facility] [address] [id number] [place] [address]- 3126 Jul, [facility] [place] [facility] [address] [id number] [place] [address]- 2750 Jul, [facility] [place] [facility] [address] [id number] [place] [address]- 5961 Jul, [facility] [place] [facility] [address] [id number] [place] [address]- 6315 Jul, [facility] [place] [facility] [address] [id number] [place] [address]- 9560 Jul, [facility] [place] [facility] [address] [id number] [place] [address]- 8773 Jul, [facility] [place] [facility] [address] [id number] [place] [address]- 3618 Jul, [facility] [place] [facility] [address] [id number] [place] [address]- 5093 May, [facility] [place] [facility] [address] [id number] [place] [address]- 6329 May, [facility] [place] [facility] [address] [id number] [place] [address]- 5730 Apr, [facility] [place] [facility] [address] [id number] [place] 3421 Apr, [facility] [place] [facility] [address] [id number] [place] 7023 Apr, [facility] [place] [facility] [address] [id number] [place] [address]- 4456 Apr, [facility] [place] [facility] [address] [id number] [place] [address]- 3319 Feb, [facility] [place] [facility] [address] [id number] [place] [address]- 4183 Feb, [facility] [place] [facility] [address] [id number] [place] [address]- 7219 Feb, [facility] [place] [facility] [address] [id number] [place] [address]- 4586 Feb, [facility] [place] [facility] [address] [id number] [place] [address]- 0183 Jan, [facility] [place] [facility] [address] [id number] [place] [address]- 7159 Jan, [facility] [place] [facility] [address] [id number] [place] [address]- 6402 Jan, [facility] [place] [facility] [address] [id number] [place] [address]- 8095 Jan, [facility] [place] [facility] [address] [id number] [place] [address]- 5716 Jan, [facility] [place] [facility] [address] [id number] [place] [address]- 4994 Jan, [facility] [place] [facility] [address] [id number] [place] [address]- 0359 December, [facility] [place] [facility] [address] [id number] [place] [address]- 5846 December, [facility] [place] [facility] [address] [id number] [place] [address]- 6971 December, [facility] [place] [facility] [address] [id number] [place] [address]- 3876 December, [facility] [place] [facility] [address] [id number] [place] 2834 Nov, [facility] [place] [facility] [address] [id number] [place] [address]- 2998 Nov, [facility] [place] [facility] [address] [id number] [place] [address]- 2924 Nov, [facility] [place] [facility] [address] [id number] [place] [address]- 5519 Nov, [facility] [place] [facility] [address] [id number] [place] [address]- 5457 Oct, [facility] [place] [facility] [address] [id number] [place] [address]- 1179 Oct, [facility] [place] [facility] [address] [id number] [place] [address]- 8915 Oct, [facility] [place] [facility] [address] [id number] [place] [address]- 2312 Oct, [facility] [place] [facility] [address] [id number] [place] [address]- 1433 Oct, [facility] [place] [facility] [address] [id number] [place] [address]- 9464 Oct, [facility] [place] [facility] [address] [id number] [place] [address]- 1711 Sep, [facility] [place] [facility] [address] [id number] [place] [address]- 1781 Sep, [facility] [place] [facility] [address] [id number] [address]- 5950 Sep, [facility] [place] [facility] [address] [id number] [place] [address]- 1879 Sep, [facility] [place] [facility] [address] [id number] [place] [address]- 1814 Aug, [facility] [place] [facility] [address] [id number] [place] [address]- 5409 Aug, [facility] [place] [facility] [address] [id number] [place] [address]- 6933 Aug, [facility] [address] [id number] [place] [address]- 0826 Aug, [facility] [place] [facility] [address] [id number] [place] [address]- 0577 Aug, [facility] [address] [id number] [place] [address]- 7428 Aug, [facility] [place] [facility] [address] [id number] [place] [address]- 4697 Jul, [facility] [address] [id number] [place] 4586 Jul, [facility] [place] [facility] [address] [id number] [place] [address]- 9371 Jul, [facility] [address] [id number] [place] [address]- 3462 Jul, [facility] [address] [id number] [place] [address]- 5245 Jun, [facility] [place] [facility] [address] [id number] [place] [address]- 8584 Jun, [facility] [address] [id number] [place] [address]- 1938 May, [facility] [place] [facility] [address] [id number] [place] [address]- 9991 Feb, [facility] [place] [facility] [address] [id number] [place] [address]- 1079 Feb, [facility] [place] [facility] [address] [id number] [place] [address]- 9470 Feb, [facility] [place] [facility] [address] [id number] [place] [address]- 0162 Jan, [facility] [place] [facility] [address] [id number] [place] [address]- 4025 Jan, [facility] [place] [facility] [address] [id number] [place] [address]- 9879 Jan, [facility] [address] [id number] [place] [address]- 8371 December, [facility] [address] [id number] [place] [address]- 3316 December, [facility] [address] [id number] [place] [address]- 4869 December, [facility] [address] [id number] [place] [address]- 9592 Nov, [facility] [address] [id number] [place] [address]- 1974 Nov, [facility] [address] [id number] [place] [address]- 8990 16 Nov, 2012 [facility] [address] [id number] [place] [address]- 2706 15 Nov, 2012 [facility] [address] [id number] [place] [address]- 6162 Nov, [facility] [address] [id number] [place] [address]- 9725 Nov, [facility] [address] [id number] [place] [address]- 6687 Oct, [facility] [address] [id number] [place] [address]- 4992 Oct, [facility] [address] [id number] [place] [address]- 9374 Oct, [facility] [address] [id number] [place] [address]- 9962 Aug, [facility] [address] [id number] [place] [address]- 0986 Aug, [facility] [address] [id number] [place] [address] Aug, [facility] [place] [facility] [address] [id number] [place] [address] Jul, [facility] [place] [facility] [address] [id number] [place] [address] Jul, [facility] [place] [facility] [address] [id number] [place] [address] Jun, [facility] [place] [facility] [address] [id number] [place] [address] Jun, [facility] [place] [facility] [address] [id number] [place] [address] Jun, [facility] [place] [facility] [address] [id number] [place] [address] Jun, [facility] [place] [facility] [address] [id number] [place] [address] May, [facility] [place] [facility] [address] [id number] [place] [address] May, [facility] [place] [facility] [address] [id number] [place] [address] Apr, [facility] [place] [facility] [address] [id number] [place] [address] Apr, [facility] [place] [facility] [address] [id number] [place] [address] Feb, [facility] [place] [facility] [address] [id number] [place] [address] Feb, [facility] [place] [facility] [address] [id number] [place] [address] Nov, [facility] [place] [facility] [address] [id number] [place] [address] Oct, [facility] [place] [facility] [address] [id number] [place] [address] Sep, [facility] [place] [facility] [address] [id number] [place] [address] Sep, [facility] [place] [facility] [address] [id number] [place] [address] Sep, [facility] [place] [facility] [address] [id number] [place] [address] Aug, [facility] [place] [facility] [address] [id number] [place] [address] Aug, [facility] [place] [facility] [address] [address] [id number] [place] [address] Aug, [facility] [place] [facility] [address] [id number] [place] [address] Jul, [facility] [place] [facility] [address] [id number] [place] [address] Jul, [facility] [place] [facility] [address] [id number] [place] [address] Jun, [facility] [place] [facility] [address] [id number] [place] [address] Jun, [facility] [place] [facility] [address] [id number] [place] [address] Jun, [facility] [place] [facility] [address] [id number] [place] [address] May, [facility] [place] [facility] [address] [id number] [place] [address] May, [facility] [place] [facility] [address] [id number] [place] [address] May, [facility] [place] [facility] [address] [id number] [place] [address] May, [facility] [place] [facility] [address] [id number] [place] [address] May, [facility] [place] [facility] [address] [id number] [place] [address] Feb, [facility] [address] [facility] [id number] [place] [address] Nov, [facility] [address] [facility] [id number] [place] [address] Oct, IMMUNIZATIONS No Known Immunizations SOCIAL HISTORY Never Assessed REASON FOR VISIT referral PLAN OF CARE VITAL SIGNS MEDICATIONS Unknown Medications RESULTS No Results PROCEDURES No Known procedures INSTRUCTIONS MEDICATIONS ADMINISTERED No Known Medications MEDICAL (GENERAL) HISTORY Type Description Date Medical History hypertension Medical History hyperlipidemia Medical History type II diabetes Medical History Arthritis-knees and hips Medical History stroke-05/2011 Medical History leukemia (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 Yu Surgical History dilatation and curettage 03/2000 Surgical History tubal ligation 1979 Hospitalization History Via [facility] admit for stroke 05/2011 Hospitalization History [facility] for elevated blood sugars 09/2010
--- OUTSIDE RECORDS SUMMARY | 2018-06-04 14:32 | XMS REPORT | Continuity of Care Document ---
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 N Ot E11.9 TYPE 2 DIABETES MELLITUS WITHOUT COMPLIC 12/24/2016 SASHA, DUSTYWILEY N Ot I10 ESSENTIAL (PRIMARY) HYPERTENSION 12/24/2016 SASHA, DUSTYWILEY N Ot Z79.4 PAINTER SKI EDGE (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 12/24/2016 VIRY MORAN N Ot Z79.899 OTHER RETIREMENT (CURRENT) DRUG THERAPY 12/24/2016 VIRY MORAN N Ot 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 LYMPHOCYTIC LEUK OF B-CELL TYPE 12/24/2016 SASHA, VIRY N Ot E11.9 TYPE 2 DIABETES MELLITUS WITHOUT COMPLIC 12/24/2016 SASHAVIRY N Ot I10 ESSENTIAL (PRIMARY) HYPERTENSION 12/24/2016 SASHADUSTYWILEY N Ot Z79.4 PAINTER SKI EDGE (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 12/24/2016 SASHA DUSTYWILEY N Ot Z79.899 OTHER PAINTER SKI EDGE (CURRENT) DRUG THERAPY 01/11/2017 ALMA SAHU, EDWIN [...] 01/11/2017 ALMA SAHU, EDWIN Carvajal Ot Z79.02 RETIREMENT (CURRENT) USE OF ANTITHROMBOTI 01/11/2017 EDWIN MARQUEZ MD Ot Z79.4 PAINTER SKI EDGE (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 01/11/2017 EDWIN MARQUEZ MD Ot Z79.899 OTHER RETIREMENT (CURRENT) DRUG THERAPY 01/25/2017 VIRY MORAN Ot 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 LYMPHOCYTIC LEUK OF B-CELL TYPE 01/25/2017 VIRY MORAN Ot E11.9 TYPE 2 DIABETES MELLITUS WITHOUT COMPLIC 01/25/2017 VIRY MORAN Ot I10 ESSENTIAL (PRIMARY) HYPERTENSION 01/25/2017 VIRY MORAN Ot Z79.4 RETIREMENT (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 01/25/2017 VIRY MORAN Ot Z79.899 OTHER RETIREMENT (CURRENT) DRUG THERAPY 03/01/2017 ANTONINO WALLER MANAGER BIOSTATISTICS Ot N64.52 NIPPLE DISCHARGE 03/06/2017 ANTONINO WALLER MANAGER BIOSTATISTICS Ot N64.52 NIPPLE DISCHARGE 03/20/2017 VIRY MORAN Ot 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 LYMPHOCYTIC LEUK OF B-CELL TYPE 03/20/2017 VIRY MORAN N Ot E11.9 TYPE 2 DIABETES MELLITUS WITHOUT COMPLIC 03/20/2017 VIRY MORAN N Ot I10 ESSENTIAL (PRIMARY) HYPERTENSION 03/20/2017 VIRY MORAN Ot Z79.4 PAINTER SKI EDGE (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 03/20/2017 VIRY MORAN N Ot Z79.899 OTHER PAINTER SKI EDGE (CURRENT) DRUG THERAPY 03/30/2017 ANTONINO WALLER MANAGER BIOSTATISTICS Ot N64.52 NIPPLE DISCHARGE 07/31/2017 VIRY MORAN Ot 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 LYMPHOCYTIC LEUK OF B-CELL TYPE 07/31/2017 VIRY MORAN N Ot E11.9 TYPE 2 DIABETES MELLITUS WITHOUT COMPLIC 07/31/2017 VIRY MORAN N Ot I10 ESSENTIAL (PRIMARY) HYPERTENSION 07/31/2017 VIRY MORAN N Ot Z79.4 PAINTER SKI EDGE (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 07/31/2017 VIRY MORAN Sofia Ot Z79.899 OTHER PAINTER SKI EDGE (CURRENT) DRUG THERAPY 08/09/2017 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 APRN [...] UNSPECIFIED 08/09/2017 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 APRN Ot Z79.4 PAINTER SKI EDGE (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 08/09/2017 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 APRN Ot Z79.82 PAINTER SKI EDGE (CURRENT) USE OF ASPIRIN 08/09/2017 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 [...] UNSPECIFIED 08/13/2017 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 APRN Ot Z79.4 RETIREMENT (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 08/13/2017 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 APRN Ot Z79.82 PAINTER SKI EDGE (CURRENT) USE OF ASPIRIN 08/13/2017 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 [...] LE 08/23/2017 RUBY FOX MD Ot Z79.4 PAINTER SKI EDGE (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 08/23/2017 RUBY FOX MD Ot Z79.82 RETIREMENT (CURRENT) USE OF ASPIRIN 08/23/2017 RUBY FOX [...] LE 08/27/2017 RUBY FOX MD, Ot Z79.4 PAINTER SKI EDGE (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 08/27/2017 RUBY FOX MD, Ot Z79.82 PAINTER SKI EDGE (CURRENT) USE OF ASPIRIN 08/27/2017 RUBY FOX [...] (PRIMARY) HYPERTENSION 09/25/2017 VIRY MORAN Ot Z79.4 RETIREMENT (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 09/25/2017 VIRY MORAN Ot Z79.899 OTHER RETIREMENT (CURRENT) DRUG THERAPY 10/02/2017 VIRY MORAN Ot 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 LYMPHOCYTIC LEUK OF B-CELL TYPE 10/02/2017 VIRY MORAN N Ot E11.9 TYPE 2 DIABETES MELLITUS WITHOUT COMPLIC 10/02/2017 VIRY MORAN N Ot I10 ESSENTIAL (PRIMARY) HYPERTENSION 10/02/2017 VIRY MORAN N Ot Z79.4 RETIREMENT (CURRENT) USE OF INSULIN 10/02/2017 VIRY MORAN Ot Z79.899 OTHER PAINTER SKI EDGE (CURRENT) DRUG THERAPY 10/03/2017 VIRY MORAN Ot 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 LYMPHOCYTIC LEUK OF B-CELL TYPE 10/03/2017 VIRY MORAN N Ot E11.9 TYPE 2 DIABETES MELLITUS WITHOUT COMPLIC 10/03/2017 VIRY MORAN N Ot I10 ESSENTIAL (PRIMARY) HYPERTENSION 10/03/2017 VIRY MORAN Ot Z79.4 PAINTER SKI EDGE (CURRENT) USE OF INSULIN 10/03/2017 VIRY MORAN Ot Z79.899 OTHER PAINTER SKI EDGE (CURRENT) DRUG THERAPY 03/04/2018 VIRY MORAN Ot 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, 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 03/04/2018 NGMAUDE Vernon S CLINICAL SERVICES DIRECTOR Ot 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, 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 03/04/2018 NGMAUDE Vernon S CLINICAL SERVICES DIRECTOR Ot 250.00 DIAB ALONDRA WO COMPL, TYPE II OR UNSPEC TY 03/04/2018 NG, HILAH S CLINICAL SERVICES DIRECTOR Ot 438.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,HEMIPLEGIA AFFECTING 03/04/2018 NG HILAH S CLINICAL SERVICES DIRECTOR Ot 780.79 OTH MALAISE FATIGUE 03/04/2018 NG HILAH S CLINICAL SERVICES DIRECTOR Ot V58.67 LONG-TERM (CURRENT) USE OF INSULIN 03/04/2018 MAUDE NG S CLINICAL SERVICES DIRECTOR Ot V58.69 OTH MED,LT,CURRENT USE 03/04/2018 RAFI NGAH S CLINICAL SERVICES DIRECTOR Ot 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, 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 03/04/2018 NGRAFIAH S CLINICAL SERVICES DIRECTOR Ot V58.69 OTH MED,LT,CURRENT USE 03/04/2018 VIRY MORAN Ot 729.5 PAIN IN LIMB 03/04/2018 NG HILAH S CLINICAL SERVICES DIRECTOR Ot 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, 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 03/04/2018 NGRAFIAH S CLINICAL SERVICES DIRECTOR Ot 250.00 DIAB ALONDRA WO COMPL, TYPE II OR UNSPEC TY 03/04/2018 NGRAFIAH S CLINICAL SERVICES DIRECTOR Ot V58.67 LONG-TERM (CURRENT) USE OF INSULIN 03/04/2018 NGRAFIAH S CLINICAL SERVICES DIRECTOR Ot V58.69 OTH MED,LT,CURRENT USE 03/04/2018 NGRAFIAH S CLINICAL SERVICES DIRECTOR Ot V76.12 OTH SCREEN MAMMO-MALIGN NEOPLASM OF [place] 03/04/2018 NG HILAH S CLINICAL SERVICES DIRECTOR Ot 793.80 UNSPEC ABNORMAL MAMMOGRAM 03/04/2018 Ot 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, 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 03/04/2018 Ot 250.00 DIAB ALONDRA WO COMPL, TYPE II OR UNSPEC TY 03/04/2018 Ot V58.67 LONG-TERM ( CURRENT) USE OF INSULIN 03/04/2018 Ot V58.69 OTH MED,LT, CURRENT USE 03/04/2018 Ot 272.4 HYPERLIPIDEMIA NEC/NOS 03/04/2018 DELLA MCGEE CLINICAL SERVICES DIRECTOR Ot R22.31 LOCALIZED SWELLING, MASS AND LUMP, RIGHT 03/04/2018 MAUDE NG CLINICAL SERVICES DIRECTOR Ot 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 LYMPHOCYTIC LEUK OF B-CELL TYPE 03/04/2018 MAUDE NG CLINICAL SERVICES DIRECTOR Ot E11.9 TYPE 2 DIABETES MELLITUS WITHOUT COMPLIC 03/04/2018 MAUDE NG CLINICAL SERVICES DIRECTOR Ot I10 ESSENTIAL (PRIMARY) HYPERTENSION 03/04/2018 MAUDE NG CLINICAL SERVICES DIRECTOR Ot Z79.4 PAINTER SKI EDGE (CURRENT) USE OF INSULIN 03/04/2018 MAUDE GN S CLINICAL SERVICES DIRECTOR Ot Z79.899 OTHER RETIREMENT (CURRENT) DRUG THERAPY 03/04/2018 MAUDE NG CLINICAL SERVICES DIRECTOR Ot 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 LYMPHOCYTIC LEUK OF B-CELL TYPE 03/04/2018 MAUDE NG CLINICAL SERVICES DIRECTOR Ot E11.9 TYPE 2 DIABETES MELLITUS WITHOUT COMPLIC 03/04/2018 MAUDE NG CLINICAL SERVICES DIRECTOR Ot I10 ESSENTIAL (PRIMARY) HYPERTENSION 03/04/2018 MAUDE NG CLINICAL SERVICES DIRECTOR Ot Z79.4 RETIREMENT (CURRENT) USE OF INSULIN 03/04/2018 MAUDE NG S CLINICAL SERVICES DIRECTOR Ot Z79.899 OTHER RETIREMENT (CURRENT) DRUG THERAPY 03/04/2018 MAUDE NG CLINICAL SERVICES DIRECTOR Ot R92.8 OTH ABN AND INCONCLUSIVE FINDINGS ON DX 03/04/2018 VIRY MORAN Ot 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 LYMPHOCYTIC LEUK OF B-CELL TYPE 03/04/2018 VIRY MORAN Ot E11.9 TYPE 2 DIABETES MELLITUS WITHOUT COMPLIC 03/04/2018 VIRY MORAN Ot I10 ESSENTIAL (PRIMARY) HYPERTENSION 03/04/2018 VIRY MORAN Ot Z79.4 PAINTER SKI EDGE (CURRENT) USE OF INSULIN 03/04/2018 VIRY MORAN Ot Z79.899 OTHER PAINTER SKI EDGE (CURRENT) DRUG THERAPY 03/04/2018 ANTONINO WALLER APRN Ot N64.52 NIPPLE DISCHARGE 03/04/2018 VIRY MORAN Ot 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 LYMPHOCYTIC LEUK OF B-CELL TYPE 03/04/2018 VIRY MORAN Ot E11.9 TYPE 2 DIABETES MELLITUS WITHOUT COMPLIC 03/04/2018 VIRY MORAN Ot I10 ESSENTIAL (PRIMARY) HYPERTENSION 03/04/2018 VIRY MORAN Ot Z79.4 PAINTER SKI EDGE (CURRENT) USE OF INSULIN 03/04/2018 VIRY MORAN Ot Z79.899 OTHER RETIREMENT (CURRENT) DRUG THERAPY 03/04/2018 MAUDE NG S CLINICAL SERVICES DIRECTOR Ot Z12.31 ENCNTR SCREEN MAMMOGRAM FOR MALIGNANT NE 03/05/2018 MAUDE NG S CLINICAL SERVICES DIRECTOR Ot 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 LYMPHOCYTIC LEUK OF B-CELL TYPE 03/05/2018 NG, HILAH S CLINICAL SERVICES DIRECTOR Ot R22.31 LOCALIZED SWELLING, MASS AND LUMP, RIGHT 03/05/2018 MAUDE NG S CLINICAL SERVICES DIRECTOR Ot R92.8 OTH ABN AND INCONCLUSIVE FINDINGS ON DX 03/26/2018 MAUDE NG S CLINICAL SERVICES DIRECTOR Ot 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 LYMPHOCYTIC LEUK OF B-CELL TYPE 03/26/2018 MAUDE NG S CLINICAL SERVICES DIRECTOR Ot R22.31 LOCALIZED SWELLING, MASS AND LUMP, RIGHT 03/26/2018 NGMAUDE Vernon S CLINICAL SERVICES DIRECTOR Ot R92.8 OTH ABN AND INCONCLUSIVE FINDINGS ON DX 03/27/2018 MARY SAHU, CHIOT Rawls Ot Z01.818 ENCOUNTER FOR OTHER PREPROCEDURAL [...] RIGHT 03/29/2018 CHITO HERNANDEZ MD, Ot Z79.02 PAINTER SKI EDGE (CURRENT) USE OF ANTITHROMBOTI 03/29/2018 HERNANDEZ MD, CHITO M Ot Z79.4 RETIREMENT (CURRENT) USE OF INSULIN 03/29/2018 CHITO HERNANDEZ MD Ot Z79.82 RETIREMENT (CURRENT) USE OF ASPIRIN 04/04/2018 CHITO HERNANDEZ [...] AFFECT 04/04/2018 CHITO HERNANDEZ MD, Ot Z79.02 PAINTER SKI EDGE (CURRENT) USE OF ANTITHROMBOTI 04/04/2018 CHITO HERNANDEZ MD, Ot Z79.4 RETIREMENT (CURRENT) USE OF INSULIN 04/04/2018 CHITO HERNANDEZ MD, Ot Z79.82 PAINTER SKI EDGE (CURRENT) USE OF ASPIRIN 04/07/2018 CHITO HERNANDEZ [...] AFFECT 04/07/2018 CHITO HERNANDEZ MD Ot Z79.02 PAINTER SKI EDGE (CURRENT) USE OF ANTITHROMBOTI 04/07/2018 CHITO HERNANDEZ MD, Ot Z79.4 RETIREMENT (CURRENT) USE OF INSULIN 04/07/2018 CHITO HERNANDEZ MD, Ot Z79.82 PAINTER SKI EDGE (CURRENT) USE OF ASPIRIN 04/08/2018 CHITO HERNANDEZ MD, Ot C76.1 MALIGNANT NEOPLASM OF [...] NEC, IN 04/09/2018 KEIRA LÓPEZIS Ot Z79.4 PAINTER SKI EDGE (CURRENT) USE OF INSULIN 04/09/2018 BERNMARITZA MONTSERRAT Ot Z79.82 PAINTER SKI EDGE (CURRENT) USE OF ASPIRIN 04/09/2018 KEIRA LÓPEZIS [...] NEC, IN 04/11/2018 KEIRA LÓPEZIS Ot Z79.4 RETIREMENT (CURRENT) USE OF INSULIN 04/11/2018 RENE, MONTSERRAT Ot Z79.82 PAINTER SKI EDGE (CURRENT) USE OF ASPIRIN 04/11/2018 KEIRA LÓPEZIS [...] HYPERTENSION 04/30/2018 VIRY MORAN N Ot Z79.4 PAINTER SKI EDGE (CURRENT) USE OF INSULIN 04/30/2018 VIRY MORAN N Ot Z79.899 OTHER RETIREMENT (CURRENT) DRUG THERAPY 05/07/2018 VIRY MORAN N Ot 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 LYMPHOCYTIC LEUK OF B-CELL TYPE 05/07/2018 SASHAVIRY ROWLAND N Ot E11.9 TYPE 2 DIABETES MELLITUS WITHOUT COMPLIC 05/07/2018 VIRY MORAN N Ot I10 ESSENTIAL (PRIMARY) HYPERTENSION 05/07/2018 VIRY MORAN N Ot Z79.4 PAINTER SKI EDGE (CURRENT) USE OF INSULIN 05/07/2018 VIRY MORAN N Ot Z79.899 OTHER RETIREMENT (CURRENT) DRUG THERAPY 05/07/2018 MARY SAHU, CHITO [...] 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 05/28/2018 NGMAUDE Vernon S CLINICAL SERVICES DIRECTOR Ot 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, 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 05/28/2018 NGRAFIAH S CLINICAL SERVICES DIRECTOR Ot 250.00 DIAB ALONDRA WO COMPL, TYPE II OR UNSPEC TY 05/28/2018 NG HILAH S CLINICAL SERVICES DIRECTOR Ot 438.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,HEMIPLEGIA AFFECTING 05/28/2018 NG HILAH S CLINICAL SERVICES DIRECTOR Ot 780.79 OTH MALAISE FATIGUE 05/28/2018 NG HILAH S CLINICAL SERVICES DIRECTOR Ot V58.67 LONG-TERM (CURRENT) USE OF INSULIN 05/28/2018 NG HILAH S CLINICAL SERVICES DIRECTOR Ot V58.69 OTH MED,LT,CURRENT USE 05/28/2018 RAFI NGAH S CLINICAL SERVICES DIRECTOR Ot 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, 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 05/28/2018 NGRAFIAH S CLINICAL SERVICES DIRECTOR Ot V58.69 OTH MED,LT,CURRENT USE 05/28/2018 VIRY MORAN Ot 729.5 PAIN IN LIMB 05/28/2018 NGRAFIAH S CLINICAL SERVICES DIRECTOR Ot 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, 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 05/28/2018 NGRAFIAH S CLINICAL SERVICES DIRECTOR Ot 250.00 DIAB ALONDRA WO COMPL, TYPE II OR UNSPEC TY 05/28/2018 NGRAFIAH S CLINICAL SERVICES DIRECTOR Ot V58.67 LONG-TERM (CURRENT) USE OF INSULIN 05/28/2018 NG HILAH S CLINICAL SERVICES DIRECTOR Ot V58.69 OTH MED,LT,CURRENT USE 05/28/2018 NGRAFIAH S CLINICAL SERVICES DIRECTOR Ot V76.12 OTH SCREEN MAMMO-MALIGN NEOPLASM OF [place]VINA 05/28/2018 NG HILAH S CLINICAL SERVICES DIRECTOR Ot 793.80 UNSPEC ABNORMAL MAMMOGRAM 05/28/2018 Ot 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, 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 05/28/2018 Ot 250.00 DIAB ALONDRA WO COMPL, TYPE II OR UNSPEC TY 05/28/2018 Ot V58.67 LONG-TERM ( CURRENT) USE OF INSULIN 05/28/2018 Ot V58.69 OTH MED,LT, CURRENT USE 05/28/2018 Ot 272.4 HYPERLIPIDEMIA NEC/NOS 05/28/2018 DELLA MCGEE CLINICAL SERVICES DIRECTOR Ot R22.31 LOCALIZED SWELLING, MASS AND LUMP, RIGHT 05/28/2018 MAUDE NG CLINICAL SERVICES DIRECTOR Ot 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 LYMPHOCYTIC LEUK OF B-CELL TYPE 05/28/2018 MAUDE NG CLINICAL SERVICES DIRECTOR Ot E11.9 TYPE 2 DIABETES MELLITUS WITHOUT COMPLIC 05/28/2018 MAUDE NG CLINICAL SERVICES DIRECTOR Ot I10 ESSENTIAL (PRIMARY) HYPERTENSION 05/28/2018 MAUDE NG CLINICAL SERVICES DIRECTOR Ot Z79.4 RETIREMENT (CURRENT) USE OF INSULIN 05/28/2018 MAUDE NGP Ot Z79.899 OTHER RETIREMENT (CURRENT) DRUG THERAPY 05/28/2018 MAUDE NGP Ot 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 LYMPHOCYTIC LEUK OF B-CELL TYPE 05/28/2018 MAUDE NG CLINICAL SERVICES DIRECTOR Ot E11.9 TYPE 2 DIABETES MELLITUS WITHOUT COMPLIC 05/28/2018 MAUDE NG CLINICAL SERVICES DIRECTOR Ot I10 ESSENTIAL (PRIMARY) HYPERTENSION 05/28/2018 MAUDE NG CLINICAL SERVICES DIRECTOR Ot Z79.4 PAINTER SKI EDGE (CURRENT) USE OF INSULIN 05/28/2018 MAUDE NGP Ot Z79.899 OTHER PAINTER SKI EDGE (CURRENT) DRUG THERAPY 05/28/2018 MAUDE NGP Ot R92.8 OTH ABN AND INCONCLUSIVE FINDINGS ON DX 05/28/2018 VIRY MORAN Ot 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 LYMPHOCYTIC LEUK OF B-CELL TYPE 05/28/2018 VIRY MORAN Ot E11.9 TYPE 2 DIABETES MELLITUS WITHOUT COMPLIC 05/28/2018 VIRY MORAN Ot I10 ESSENTIAL (PRIMARY) HYPERTENSION 05/28/2018 VIRY MORAN Ot Z79.4 PAINTER SKI EDGE (CURRENT) USE OF INSULIN 05/28/2018 VIRY MORAN Ot Z79.899 OTHER PAINTER SKI EDGE (CURRENT) DRUG THERAPY 05/28/2018 ANTONINO WALLER APRN Ot N64.52 NIPPLE DISCHARGE 05/28/2018 MAUDE NG CLINICAL SERVICES DIRECTOR Ot 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 LYMPHOCYTIC LEUK OF B-CELL TYPE 05/28/2018 MAUDE NG CLINICAL SERVICES DIRECTOR Ot R22.31 LOCALIZED SWELLING, MASS AND LUMP, RIGHT 05/28/2018 MAUDE NG CLINICAL SERVICES DIRECTOR Ot R92.8 OTH ABN AND INCONCLUSIVE FINDINGS [...] HYPERTENSION 05/28/2018 VIRY MORAN N Ot Z79.4 RETIREMENT (CURRENT) USE OF INSULIN 05/28/2018 VIRY MORAN N Ot Z79.899 OTHER PAINTER SKI EDGE (CURRENT) DRUG THERAPY 05/28/2018 CHITO HERNANDEZ MD Ot C50.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 05/28/2018 CHITO HERNANDEZ MD Ot K80.20 CALCULUS OF GALLBLADDER W/O CHOLECYSTITI 05/28/2018 VIRY MORAN Ot 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 LYMPHOCYTIC LEUK OF B-CELL TYPE 05/28/2018 VIRY MORAN N Ot E11.9 TYPE 2 DIABETES MELLITUS WITHOUT COMPLIC 05/28/2018 VIRY OMRAN N Ot I10 ESSENTIAL (PRIMARY) HYPERTENSION 05/28/2018 VIRY MORAN N Ot Z79.4 PAINTER SKI EDGE (CURRENT) USE OF INSULIN 05/28/2018 VIRY MORAN N Ot Z79.899 OTHER RETIREMENT (CURRENT) DRUG THERAPY 05/28/2018 CHITO HERNANDEZ MD, Ot C50.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69 OTH MED,LT,CURRENT USE 05/28/2018 MAUDE NG CLINICAL SERVICES DIRECTOR Ot 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, 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 05/28/2018 MAUDE NGP Ot V58.69 OTH MED,LT,CURRENT USE 05/28/2018 VIRY MORAN Ot 729.5 PAIN IN LIMB 05/28/2018 MAUDE NG CLINICAL SERVICES DIRECTOR Ot 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, 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 05/28/2018 MAUDE NG CLINICAL SERVICES DIRECTOR Ot 250.00 DIAB ALONDRA WO COMPL, TYPE II OR UNSPEC TY 05/28/2018 MAUDE NG S CLINICAL SERVICES DIRECTOR Ot V58.67 LONG-TERM (CURRENT) USE OF INSULIN 05/28/2018 MAUDE NG CLINICAL SERVICES DIRECTOR Ot V58.69 OTH MED,LT,CURRENT USE 05/28/2018 MAUDE NGP Ot V76.12 OTH SCREEN MAMMO-MALIGN NEOPLASM OF [place] 05/28/2018 MAUDE NG S CLINICAL SERVICES DIRECTOR Ot 793.80 UNSPEC ABNORMAL MAMMOGRAM 05/28/2018 Ot 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, 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 05/28/2018 Ot 250.00 DIAB ALONDRA WO COMPL, TYPE II OR UNSPEC TY 05/28/2018 Ot V58.67 LONG-TERM ( CURRENT) USE OF INSULIN 05/28/2018 Ot V58.69 OTH MED,LT, CURRENT USE 05/28/2018 Ot 272.4 HYPERLIPIDEMIA NEC/NOS 05/28/2018 DELLA MCGEE CLINICAL SERVICES DIRECTOR Ot R22.31 LOCALIZED SWELLING, MASS AND LUMP, RIGHT 05/28/2018 MAUDE NG Janeen CLINICAL SERVICES DIRECTOR Ot 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 LYMPHOCYTIC LEUK OF B-CELL TYPE 05/28/2018 RAFI NGLEXIE Vernon CLINICAL SERVICES DIRECTOR Ot E11.9 TYPE 2 DIABETES MELLITUS WITHOUT COMPLIC 05/28/2018 NG RAFILEXIE S CLINICAL SERVICES DIRECTOR Ot I10 ESSENTIAL (PRIMARY) HYPERTENSION 05/28/2018 RAFI NGLEXIE Vernon CLINICAL SERVICES DIRECTOR Ot Z79.4 RETIREMENT (CURRENT) USE OF INSULIN 05/28/2018 RAFI NGLEXIE S CLINICAL SERVICES DIRECTOR Ot Z79.899 OTHER RETIREMENT (CURRENT) DRUG THERAPY 05/28/2018 RAFI NGLEXIE Vernon CLINICAL SERVICES DIRECTOR Ot 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 LYMPHOCYTIC LEUK OF B-CELL TYPE 05/28/2018 RAFI NGLEXIE Vernon CLINICAL SERVICES DIRECTOR Ot E11.9 TYPE 2 DIABETES MELLITUS WITHOUT COMPLIC 05/28/2018 RAFI NGLEXIE Vernon CLINICAL SERVICES DIRECTOR Ot I10 ESSENTIAL (PRIMARY) HYPERTENSION 05/28/2018 RAFI NGLEXIE Vernon CLINICAL SERVICES DIRECTOR Ot Z79.4 RETIREMENT (CURRENT) USE OF INSULIN 05/28/2018 RAFI NGLEXIE Vernon CLINICAL SERVICES DIRECTOR Ot Z79.899 OTHER PAINTER SKI EDGE (CURRENT) DRUG THERAPY 05/28/2018 RAFI NGLEXEI Vernon CLINICAL SERVICES DIRECTOR Ot R92.8 OTH ABN AND INCONCLUSIVE FINDINGS ON DX 05/28/2018 VIRY MORAN Ot 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 LYMPHOCYTIC LEUK OF B-CELL TYPE 05/28/2018 VIRY MORAN Ot E11.9 TYPE 2 DIABETES MELLITUS WITHOUT COMPLIC 05/28/2018 VIRY MORAN Ot I10 ESSENTIAL (PRIMARY) HYPERTENSION 05/28/2018 VIRY MORAN Ot Z79.4 PAINTER SKI EDGE (CURRENT) USE OF INSULIN 05/28/2018 VIRY MORAN Ot Z79.899 OTHER RETIREMENT (CURRENT) DRUG THERAPY 05/28/2018 ANTONINO WALLER APRN Ot N64.52 NIPPLE DISCHARGE 05/28/2018 RAFI NGLEXIE S CLINICAL SERVICES DIRECTOR Ot 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 LYMPHOCYTIC LEUK OF B-CELL TYPE 05/28/2018 BERENICE MAUDE S CLINICAL SERVICES DIRECTOR Ot R22.31 LOCALIZED SWELLING, MASS AND LUMP, RIGHT 05/28/2018 MAUDE NG Janeen CLINICAL SERVICES DIRECTOR Ot R92.8 OTH ABN AND INCONCLUSIVE FINDINGS [...] (PRIMARY) HYPERTENSION 05/28/2018 VIRY MORAN Ot Z79.4 RETIREMENT (CURRENT) USE OF INSULIN 05/28/2018 VIRY MORAN Ot Z79.899 OTHER RETIREMENT (CURRENT) DRUG THERAPY 05/28/2018 CHITO HERNANDEZ MD, [...] Procedures Code Description [place] [address] ROUTINE VENIPUNCTURE 06/26/2012 04373 XRAY FOOT RIGHT COMP MIN 3 VIEWS 06/26/2012 95172 A1C (IN-HOUSE) 06/26/2012 68189 MICRO ALBUMIN-IN HOUSE 06/26/2012 12240 UA W/ CULTURE IF INDICATED 06/26/2012 57173 BMP 06/26/2012 1219812 GFR CALC (RESULT ONLY) 06/26/2012 65914 LIPID PANEL 07/03/2012 22980 VITAMIN D 25-HYDROXY (D2,D3 , TOTAL) 07/04/2012 85764 TSH 07/04/2012 14884 ROUTINE VENIPUNCTURE 07/04/2012 62978 BARIUM SWALLOW XRAY MODIFIED 07/04/2012 Physical Speech Therapy, [facility] 08/22/2012 02050 ROUTINE VENIPUNCTURE 10/16/2012 78047 MICRO ALBUMIN-IN HOUSE 10/16/2012 10383 A1C (IN-HOUSE) 10/16/2012 12802 CMP 10/16/2012 5632618 GFR CALC (RESULT ONLY) 10/16/2012 58954 CBC 10/16/2012 86354 ROUTINE VENIPUNCTURE 11/13/2012 93354 CBC 11/13/2012 25954 PERIPHERIAL BLOOD SMEAR 11/19/2012 [id number] HEMATOLOGY OTHER REPORT 11/20/2012 99642 ROUTINE VENIPUNCTURE 11/28/2012 Medical O Viry Moran 11/28/2012 04602 PERIPHERAL BLOOD FLOW CYTOMETRY 12/02/2012 27685 ROUTINE VENIPUNCTURE 01/23/2013 33444 A1C (IN-HOUSE) 01/23/2013 52674 MICRO ALBUMIN-IN HOUSE 01/23/2013 99271 BMP 01/23/2013 91722 MAGNESIUM 01/23/2013 0302257 GFR CALC (RESULT ONLY) 01/23/2013 14474 A1C (IN-HOUSE) 05/07/2013 83213 ROUTINE VENIPUNCTURE 09/11/2013 22556 HEMOGLOBIN (IN-HOUSE) 09/11/2013 50326 A1C (IN-HOUSE) 09/11/2013 55602 CMP 09/11/2013 30620 LIPID PANEL 09/11/2013 01109 MAGNESIUM 09/11/2013 4605176 GFR CALC (RESULT ONLY) 09/11/2013 25418 MICROALBUMIN 09/11/2013 02606 ROUTINE VENIPUNCTURE 11/24/2013 03638 BMP 11/24/2013 00941 A1C (IN-HOUSE) 01/07/2014 60274 A1C (IN-HOUSE) 04/08/2014 62326 A1C (IN-HOUSE) 07/08/2014 78447 US BREAST ULTRASOUND, RIGHT 07/22/2014 58166 MAMMOGRAM DX, RIGHT 07/22/2014 Results Test Result [...] ALT (SGPT) 24 IU/L 0-32 Microalb/Creat Ratio, [facility] - 09/13/16 11:35 Creatinine, Urine 220.3 [...] 7-25 CREATININE 0.89 mg/dL 0.50-0.99 eGFR NON-AFR. TUVALUAN 68 mL/min/1.73m2 > OR=60 eGFR 78 mL/min/1.73m2 [...] Status Pt. Type Provider Facility Loc./Unit Complaint [id number] 10/14/2014 10:54:00 10/14/2014 23:59:59 CLS Outpatient CATALINO PEREZ DO [id number] 07/08/2014 13:33:00 07/08/2014 23:59:59 CLS Outpatient CATALINO PEREZ DO [id number] 07/08/2014 13:33:00 07/08/2014 23:59:59 CLS Outpatient MADL MANAGER BIOSTATISTICSDELLA [id number] 04/08/2014 13:02:00 04/08/2014 23:59:59 CLS Outpatient MADL MANAGER BIOSTATISTICSJOSEA L [id number] 04/08/2014 13:02:00 04/08/2014 23:59:59 CLS Outpatient MADL MANAGER BIOSTATISTICS DELLA L [id number] 01/07/2014 14:50:00 01/07/2014 23:59:59 CLS Outpatient DELLA MCGEE APRN [id number] 01/07/2014 14:50:00 01/07/2014 23:59:59 CLS Outpatient DELLA MCGEE APRN [id number] 12/23/2013 14:44:00 12/23/2013 23:59:59 CLS Outpatient TIN OCASIO MD [id number] 11/24/2013 09:00:00 11/24/2013 23:59:59 CLS Outpatient CATALINO PEREZ DO [id number] 09/11/2013 09:49:00 09/11/2013 23:59:59 CLS Outpatient DANIEL CRISTINA MD [id number] 05/07/2013 16:19:00 05/07/2013 23:59:59 CLS Outpatient DANIEL CRISTINA MD [id number] 10/16/2012 09:04:00 10/16/2012 23:59:59 CLS Outpatient DANIEL CRISTINA MD [id number] 09/02/2012 18:28:00 09/02/2012 23:59:59 CLS Outpatient CATALINO PEREZ DO [id number] 07/03/2012 08:01:00 07/03/2012 23:59:59 [place] [id number] 07/03/2012 08:01:00 07/03/2012 23:59:59 CLS Outpatient [id number] 01/23/2013 10:45:00 Document Registration [id number] 12/25/2012 15:29:00 Document Registration [id number] 11/28/2012 13:45:00 Document Registration [id number] 11/19/2012 14:35:00 Document Registration [id number] 11/13/2012 09:51:00 Document Registration [id number] 02/27/2018 14:00:00 02/27/2018 23:59:59 [id number] 07/04/2017 11:20:00 Document Registration [id number] 05/29/2018 09:00:00 05/29/2018 23:59:59 CLS Outpatient CHITO HERNANDEZ MD [facility] 4TH GALLSTONES, METASTATIC DUCTAL CARCINOMA RT BREAST [id number] 05/27/2018 05:38:00 05/27/2018 14:02:00 DIS Outpatient CHITO HERNANDEZ MD [facility] PREOP GALLSTONES, METASTATIC DUCTAL CARCINOMA RT BREAST [id number] 05/15/2018 14:56:00 05/15/2018 23:59:59 CLS Outpatient CHITO HERNANDEZ MD [facility] RAD RUQ PAIN,GALLSTONES [id number] 05/14/2018 10:05:00 05/14/2018 23:59:59 CLS Outpatient CHITO HERNANDEZ MD [facility] CARD METASTATIC BREAST CANCER [id number] 05/10/2018 11:46:00 05/10/2018 23:59:59 CLS Preadmit CHITO HERNANDEZ MD [facility] RAD METASTATIC BREAST CANCER [id number] 05/07/2018 13:21:00 05/07/2018 23:59:59 CLS Outpatient CHITO HERNANDEZ MD [facility] RAD METASTATIC BREAST CA, ABN MRI [id number] 05/07/2018 10:17:00 05/07/2018 23:59:59 CLS Outpatient VIRY MORAN [facility] ONC [id number] 04/10/2018 10:17:00 05/07/2018 10:13:00 DIS Outpatient VIRY MORAN [facility] ONC [id number] 04/09/2018 14:21:00 04/09/2018 15:09:00 DIS Emergency MONTSERRAT LÓPEZ [facility] ER POST OP SITE OOZING [id number] 04/05/2018 07:45:00 04/05/2018 23:59:59 CLS Outpatient CHITO HERNANDEZ MD [facility] RAD C79.9 METASTATIC CA [id number] 04/04/2018 07:45:00 04/04/2018 23:59:59 CLS Outpatient CHITO HERNANDEZ MD [facility] LAB METASTATIC CANCER RIGHT AXILLA [id number] 03/29/2018 11:20:00 03/29/2018 15:35:00 DIS Outpatient CHITO HERNANDEZ MD [facility] SDC RIGHT AXILLA LUMP [id number] 03/27/2018 05:35:00 03/27/2018 23:59:59 CLS Outpatient MARY SAHU, CHITO Rawls [facility] PREOP RIGHT AXILLA LUMP [id number] 03/04/2018 10:21:00 03/04/2018 23:59:59 CLS Outpatient MAUDE NG CLINICAL SERVICES DIRECTOR [facility] RAD 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 [id number] 10/02/2017 14:07:00 10/02/2017 00:01:00 DIS Outpatient VIRY MORAN [facility] ONC [id number] 08/23/2017 20:53:00 08/23/2017 23:20:00 DIS Emergency DOMINIQUE SAHU, RUBY Darby [facility] ER LT RIB/HIP PAIN AFTER FALL [id number] 08/09/2017 10:08:00 08/09/2017 13:06:00 DIS Emergency 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 APRN [facility] ER NAUSEA,HEADACHE,ABD PAIN [id number] 12/20/2016 09:31:00 03/20/2017 00:01:00 DIS Outpatient VIRY MORAN [facility] ONC [id number] 03/01/2017 08:42:00 03/01/2017 23:59:59 CLS Outpatient ANTONINO WALLER APRN [facility] RAD N64.52 BLOODY DISCHARGE FROM R NIPPLE [id number] 11/20/2016 16:08:00 11/20/2016 17:58:00 DIS Emergency ALMA SAHU, EDWIN Carvajal [facility] ER COUGH/BACK PAIN [id number] 07/19/2016 09:09:00 10/17/2016 00:01:00 DIS Outpatient VIRY MORAN [facility] ONC [id number] 06/21/2016 13:05:00 06/21/2016 23:59:59 CLS Outpatient MAUDE NG CLINICAL SERVICES DIRECTOR [facility] RAD ABNORMAL MAMMO [id number] 03/15/2016 08:55:00 03/15/2016 23:59:59 CLS Outpatient VIRY MORAN [facility] ONC [id number] 01/03/2016 13:34:00 01/03/2016 14:45:00 DIS Emergency JAYSON SAHU, JORGE LUIS Matute [facility] ER LEFT HAND INJURY [id number] 12/22/2015 13:21:00 12/22/2015 23:59:59 CLS Outpatient MAUDE NG CLINICAL SERVICES DIRECTOR [facility] ONC [id number] 10/25/2015 09:32:00 10/25/2015 12:15:00 DIS Outpatient CHITO HERNANDEZ MD [facility] SDC SCREENING [id number] 10/21/2015 06:12:00 10/21/2015 12:31:00 DIS Outpatient CHITO HERNANDEZ MD [facility] PREOP SCREENING [id number] 09/16/2015 09:27:00 09/16/2015 23:59:59 CLS Outpatient MAUDE NG CLINICAL SERVICES DIRECTOR [facility] ONC [id number] 06/14/2015 13:45:00 06/14/2015 23:59:59 CLS Outpatient DELLA MCGEE CLINICAL SERVICES DIRECTOR [facility] RAD RT AXILLARY KNOT [id number] 03/18/2015 12:42:00 05/05/2015 00:01:00 DIS Outpatient VIRY MORAN [facility] ONC [id number] 09/05/2014 10:01:00 09/05/2014 12:42:00 DIS Emergency 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 MANAGER BIOSTATISTICS [facility] ER LEG SWELLING [id number] 07/22/2014 13:16:00 07/22/2014 23:59:59 CLS Outpatient MAUDE NG CLINICAL SERVICES DIRECTOR [facility] RAD ABNORMAL MAMMO [id number] 07/15/2014 10:28:00 07/15/2014 23:59:59 CLS Outpatient MAUDE NG CLINICAL SERVICES DIRECTOR [facility] RAD SCREENING [id number] 07/08/2014 09:25:00 07/08/2014 23:59:59 CLS Outpatient MAUDE NG CLINICAL SERVICES DIRECTOR [facility] ONC [id number] 04/08/2014 09:04:00 07/07/2014 00:01:00 DIS Outpatient VIRY MORAN [facility] ONC [id number] 04/08/2014 10:11:00 04/08/2014 23:59:59 CLS Outpatient VIRY MORAN Sofia [facility] RAD LEFT L/E PAIN AND SWELLING [id number] 11/19/2013 10:00:00 11/19/2013 23:59:59 CLS Outpatient MAUDE NG CLINICAL SERVICES DIRECTOR [facility] ONC [id number] 10/01/2013 12:28:00 10/01/2013 14:10:00 DIS Emergency GOMEZFRANCISCO APRN [facility] ER BACK PAIN [id number] 06/19/2013 09:12:00 09/17/2013 00:01:00 DIS Outpatient [id number] 08/27/2013 12:11:00 08/27/2013 14:51:00 DIS Emergency JAMIE GAMBLE DO [facility] ER [id number] 08/19/2013 13:43:00 08/19/2013 23:59:59 CLS Outpatient [id number] 03/20/2013 12:45:00 03/20/2013 23:59:59 CLS Outpatient MAUDE NG CLINICAL SERVICES DIRECTOR [facility] ONC [id number] 12/26/2012 13:21:00 03/11/2013 00:01:00 DIS Outpatient VIRY MORAN Sofia [facility] ONC [id number] 12/18/2012 07:59:00 12/18/2012 23:59:59 CLS Outpatient VIRY MORAN Sofia [facility] RAD CLL [id number] 04/04/2016 10:34:00 Document Registration [id number] 04/04/2016 10:34:00 Document Registration [id number] 10/30/2014 14:04:00 Document Registration [id number] 10/14/2014 09:41:00 Document Registration [id number] 02/15/2014 19:45:00 Document Registration [id number] 07/09/2012 10:29:00 Document Registration [id number] 07/10/2011 12:49:00 Document Registration [id number] 05/26/2011 12:31:00 Document Registration [id number] 05/23/2011 23:45:00 Document Registration [id number] 10/06/2010 13:20:00 Document Registration [id number] 03/22/2017 08:46:00 Document Registration [id number] 03/18/2015 12:43:03 ACT Document Registration [id number] 09/14/2016 12:10:00 Document Registration [id number] 04/20/2016 08:07:00 Document Registration [id number] 05/10/2016 08:06:00 Document Registration
--- NOTE | 2018-06-13 09:31 | Discharge Summary ---
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 Gallstones Discharge Diagnosis same as admission diagnosis Reason Hospital Visit admitted electively to undergo modified radical mastectomy on the right side to address metastatic ductal carcinoma and concomitant cholecystectomy using minimally invasive technique. Her recovery was rather slow due to postoperative nausea and increased time to achieve reasonable pain control. Eventually, she has made a satisfactory recovery and became independent. Discharge Summary Procedures modified radical right mastectomy with cholecystectomy Consultations none Discharge Physical Examination Allergies: Coded Allergies: naproxen (Verified Allergy, Mild, KIDNEY ISSUES, 05/27/18) Hospital Course Labs (last 24 hrs) Laboratory Tests 05/29/18 09:15: Glucometer 144H 05/29/18 09:30: White Blood Count 13.0H, Red Blood Count 4.11L, Hemoglobin 12.5, Hematocrit 39, Mean Corpuscular Volume 94, Mean Corpuscular Hemoglobin 30, Mean Corpuscular Hemoglobin Concent 32, Red Cell Distribution Width 14.9H, Platelet Count 175, Mean Platelet Volume 11.8H, Neutrophils (%) (Auto) 20L, Lymphocytes (%) (Auto) 74H, Monocytes (%) (Auto) 4, Eosinophils (%) (Auto) 2, Basophils (%) (Auto) 0, Neutrophils # (Auto) 2.6, Lymphocytes # (Auto) 9.7H, Monocytes # (Auto) 0.5, Eosinophils # (Auto) 0.2, Basophils # (Auto) 0.1, Neutrophils % (Manual) 20, Lymphocytes % (Manual) 76, Monocytes % (Manual) 2, Eosinophils % (Manual) 1, Basophils % (Manual) 0, Band Neutrophils 1, Smudge Cells SLIGHT, Poikilocytosis SLIGHT, Elliptocytes SLIGHT 05/29/18 15:34: Glucometer 213H 05/29/18 20:28: Glucometer 216H 05/30/18 05:29: Glucometer 207H 05/30/18 11:02: Glucometer 214H 05/30/18 16:17: Glucometer 190H 05/30/18 20:01: Glucometer 209H 05/31/18 05:20: White Blood Count 12.9H, Red Blood Count 3.44L, Hemoglobin 10.2L, Hematocrit 33L , Mean Corpuscular Volume 97, Mean Corpuscular Hemoglobin 30, Mean Corpuscular Hemoglobin Concent 31L, Red Cell Distribution Width 15.4H, Platelet Count 168, Mean Platelet Volume 12.1H, Neutrophils (%) (Auto) 31L, Lymphocytes (%) (Auto) 62H, Monocytes (%) (Auto) 5, Eosinophils (%) (Auto) 1, Basophils (%) (Auto) 0, Neutrophils # (Auto) 4.1, Lymphocytes # (Auto) 8.1H, Monocytes # (Auto) 0.6, Eosinophils # (Auto) 0.1, Basophils # (Auto) 0.1, Sodium Level 138, Potassium Level 3.9, Chloride Level 106, Carbon Dioxide Level 21, Anion Gap 11, Blood Urea Nitrogen 17, Creatinine 0.84, Estimat Glomerular Filtration Rate > 60, BUN/ Creatinine Ratio 20, Glucose Level 224H, Calcium Level 8.8 05/31/18 05:35: Glucometer 211H 05/31/18 10:55: Glucometer 239H 05/31/18 16:07: Glucometer 320H 05/31/18 20:34: Glucometer 309H 06/01/18 05:55: Glucometer 237H 06/01/18 11:19: Glucometer 345H 06/01/18 16:05: Glucometer 269H 06/01/18 21:18: Glucometer 331H 06/02/18 06:42: Glucometer 284H 06/02/18 08:00: Glucometer 268H 06/02/18 11:13: Glucometer 316H 06/02/18 16:07: Glucometer 316H 06/02/18 20:42: Glucometer 247H 06/03/18 05:44: Glucometer 282H 06/03/18 11:24: Glucometer 255H Microbiology 05/29/18 MRSA Screen - Final, Complete MRSA not isolated Pending Labs Microbiology Date/Time Source Procedure Growth Status 05/29/18 09:30 Nasal MRSA Screen - Final MRSA not isolated Complete Laboratory Tests 05/29/18 09:15: Glucometer 144 05/29/18 09:30: White Blood Count 13.0, Red Blood Count 4.11, Hemoglobin 12.5, Hematocrit 39, Mean Corpuscular Volume 94, Mean Corpuscular Hemoglobin 30, Mean Corpuscular Hemoglobin Concent 32, Red Cell Distribution Width 14.9, Platelet Count 175, Mean Platelet Volume 11.8, Neutrophils (%) (Auto) 20, Lymphocytes (%) (Auto) 74 , Monocytes (%) (Auto) 4, Eosinophils (%) (Auto) 2, Basophils (%) (Auto) 0, Neutrophils # (Auto) 2.6, Lymphocytes # (Auto) 9.7, Monocytes # (Auto) 0.5, Eosinophils # (Auto) 0.2, Basophils # (Auto) 0.1, Neutrophils % (Manual) 20, Lymphocytes % (Manual) 76, Monocytes % (Manual) 2, Eosinophils % (Manual) 1, Basophils % (Manual) 0, Band Neutrophils 1, Smudge Cells SLIGHT, Poikilocytosis SLIGHT, Elliptocytes SLIGHT 05/29/18 15:34: Glucometer 213 05/29/18 20:28: Glucometer 216 05/30/18 05:29: Glucometer 207 05/30/18 11:02: Glucometer 214 05/30/18 16:17: Glucometer 190 05/30/18 20:01: Glucometer 209 05/31/18 05:20: White Blood Count 12.9, Red Blood Count 3.44, Hemoglobin 10.2, Hematocrit 33, Mean Corpuscular Volume 97, Mean Corpuscular Hemoglobin 30, Mean Corpuscular Hemoglobin Concent 31, Red Cell Distribution Width 15.4, Platelet Count 168, Mean Platelet Volume 12.1, Neutrophils (%) (Auto) 31, Lymphocytes (%) (Auto) 62 , Monocytes (%) (Auto) 5, Eosinophils (%) (Auto) 1, Basophils (%) (Auto) 0, Neutrophils # (Auto) 4.1, Lymphocytes # (Auto) 8.1, Monocytes # (Auto) 0.6, Eosinophils # (Auto) 0.1, Basophils # (Auto) 0.1, Sodium Level 138, Potassium Level 3.9, Chloride Level 106, Carbon Dioxide Level 21, Anion Gap 11, Blood Urea Nitrogen 17, Creatinine 0.84, Estimat Glomerular Filtration Rate > 60, BUN/ Creatinine Ratio 20, Glucose Level 224, Calcium Level 8.8 05/31/18 05:35: Glucometer 211 05/31/18 10:55: Glucometer 239 05/31/18 16:07: Glucometer 320 05/31/18 20:34: Glucometer 309 06/01/18 05:55: Glucometer 237 06/01/18 11:19: Glucometer 345 06/01/18 16:05: Glucometer 269 06/01/18 21:18: Glucometer 331 06/02/18 06:42: Glucometer 284 06/02/18 08:00: Glucometer 268 06/02/18 11:13: Glucometer 316 06/02/18 16:07: Glucometer 316 06/02/18 20:42: Glucometer 247 06/03/18 05:44: Glucometer 282 06/03/18 11:24: Glucometer 255 Discharge Home Medications: Active Scripts Active Bethanechol Chloride 25 Mg Tablet 25 Mg PO ACHS 30 Days Hydrocodone/Acetaminophen 5/325mg Tablet (Acetaminophen/Hydrocodone Bitart) 1 Tab Tab 1 Tab PO Q6H PRN MDD 10 Reported Farxiga (Dapagliflozin Propanediol) 10 Mg Tablet 10 Mg PO DAILY Aspirin 81 Mg Tab.chew 81 Mg PO DAILY Clopidogrel (Clopidogrel Bisulfate) 75 Mg Tablet 75 Mg PO DAILY Levemir Flextouch (Insulin Detemir) 100 Unit/1 Ml Insuln.pen 45 Unit SQ BID Glimepiride 2 Mg Tablet 2 Mg PO BID Metoprolol Succinate 25 Mg Tab.er.24h 12.5 Mg PO BID TAKE 1/2 OF 25MG TAB Novolog Flexpen (Insulin Aspart) 300 Units/3 Ml Solution 30 Units SQ TIDAC Atorvastatin Calcium 40 Mg Tablet 40 Mg PO HS Lisinopril 40 Mg Tablet 40 Mg PO DAILY Instructions to patient/family Please see electronic discharge instructions given to patient. Clinical Quality Measures DVT/VTE Risk/Contraindication: Risk Factor Score Per Nursin RFS Level Per Nursing on Admit: 4+=Very High CHITO HERNANDEZ MD Jun 13, 2018 09:31
== END 2018-06-03 11:34 | disposition home health service (06) | DRG 582 ==
LOC: SDC 09:00 → 4TH 09:00 → EDSTATUS 10:15 → SDC 17:13 → 4TH 17:13 → SDC 17:14 → 4TH 17:14 → UNDOADMIN 17:15 → UNDODISIN 06-03 14:17
PROVIDERS: ADMIT Surgery; ATTEND Surgery
PROC: 0HBBXZZ Excision of Right Upper Arm Skin, External Approach (ICD-10-PCS; 2018-05-29)
PROC: 0FT44ZZ Resection of Gallbladder, Percutaneous Endoscopic Approach (ICD-10-PCS; 2018-05-29)
PROC: 8E0W4CZ Robotic Assisted Procedure of Trunk Region, Percutaneous Endoscopic Approach (ICD-10-PCS; 2018-05-29)
PROC: 0HTT0ZZ Resection of Right Breast, Open Approach (ICD-10-PCS; principal; 2018-05-29 10:44)
PROC: 07T50ZZ Resection of Right Axillary Lymphatic, Open Approach (ICD-10-PCS; 2018-05-29 10:44)
DX: C50.911 Malignant neoplasm of unspecified site of right female breast (principal); C79.2 Secondary malignant neoplasm of skin; K80.20 Calculus of gallbladder without cholecystitis without obstruction; C91.10 Chronic lymphocytic leukemia of B-cell type not having achieved remission; E11.65 Type 2 diabetes mellitus with hyperglycemia; I10 Essential (primary) hypertension; E78.00 Pure hypercholesterolemia, unspecified; K59.00 Constipation, unspecified; N31.9 Neuromuscular dysfunction of bladder, unspecified; R33.8 Other retention of urine; K21.9 Gastro-esophageal reflux disease without esophagitis; N19 Unspecified kidney failure; I69.354 Hemiplegia and hemiparesis following cerebral infarction affecting left non-dominant side; E66.9 Obesity, unspecified; Z68.34 Body mass index [BMI] 34.0-34.9, adult; Z79.4 Long term (current) use of insulin; Z23 Encounter for immunization
CPT/HCPCS: 36415; 82962; 85007; 85027; 87081; 88304; 88309; 88341; 88342; 90686; 94664

== ENCOUNTER 2018-06-19 18:50 | Emergency (ER) | payer MEDICARE ==
[~2018-06-19] VITALS: Ht 162.6 cm; Wt 85.0 kg
[~2018-06-19 18:50] MED LIST changes: +BETH25TA PO
--- OUTSIDE RECORDS SUMMARY | 2018-06-19 19:47 | XMS REPORT | Continuity of Care Document ---
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 08/09/2017 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 APRN Ot Z79.82 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 ASPIRIN 08/09/2017 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 [...] UNSPECIFIED 08/13/2017 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 APRN Ot Z79.4 SNF (CURRENT) USE OF INSULIN 08/13/2017 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 APRN Ot Z79.82 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 ASPIRIN 08/13/2017 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 [...] LE 08/23/2017 RUBY FOX MD Ot 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 08/23/2017 RUBY FOX MD Ot Z79.82 SNF (CURRENT) USE OF ASPIRIN 08/23/2017 RUBY FOX [...] LE 08/27/2017 RUBY FOX MD, Ot 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 08/27/2017 RUBY FOX MD, Ot Z79.82 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 ASPIRIN 08/27/2017 RUBY FOX [...] (PRIMARY) HYPERTENSION 09/25/2017 VIRY MORAN Ot Z79.4 SNF (CURRENT) USE OF INSULIN 09/25/2017 VIRY MORAN Ot Z79.899 OTHER SNF (CURRENT) DRUG THERAPY 10/02/2017 VIRY MORAN Ot 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 LYMPHOCYTIC LEUK OF B-CELL TYPE 10/02/2017 VIRY MORAN N Ot E11.9 TYPE 2 DIABETES MELLITUS WITHOUT COMPLIC 10/02/2017 VIRY MORAN N Ot I10 ESSENTIAL (PRIMARY) HYPERTENSION 10/02/2017 VIRY MORAN N Ot Z79.4 SNF (CURRENT) USE OF INSULIN 10/02/2017 VIRY MORAN Ot 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 10/03/2017 VIRY MORAN Ot 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 LYMPHOCYTIC LEUK OF B-CELL TYPE 10/03/2017 VIRY MORAN N Ot E11.9 TYPE 2 DIABETES MELLITUS WITHOUT COMPLIC 10/03/2017 VIRY MORAN N Ot I10 ESSENTIAL (PRIMARY) HYPERTENSION 10/03/2017 VIRY MORAN Ot 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 10/03/2017 VIRY MORAN Ot 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 03/04/2018 VIRY MORAN Ot 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, 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 03/04/2018 [address]MAUDE Vernon S CERTIFIED COURT/MEDICAL INTERPRETER Ot 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, 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 03/04/2018 [address]MAUDE Vernon S CERTIFIED COURT/MEDICAL INTERPRETER Ot 250.00 DIAB ALONDRA WO COMPL, TYPE II OR UNSPEC TY 03/04/2018 NG, HILAH S CERTIFIED COURT/MEDICAL INTERPRETER Ot 438.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,HEMIPLEGIA AFFECTING 03/04/[address] CERT[address]IED COURT/MEDICAL INTERPRETER Ot 780.79 OTH MALAISE FATIGUE 03/04/[address] S CERT[address]IED COURT/MEDICAL INTERPRETER Ot V58.67 LONG-TERM (CURRENT) USE OF INSULIN 03/04/[address] S CERTIFIED COURT/MEDICAL INTERPRETER Ot V58.69 OTH MED,LT,CURRENT USE 03/04/[address] C[address]/MEDICAL INTERPRETER Ot 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, 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 03/04/[address]/MEDICAL INTERPRETER Ot V58.69 OTH MED,LT,CURRENT USE 03/04/2018 VIRY MORAN Ot 729.5 PAIN IN LIMB 03/04/[address] S CERT[address]IED [address]/MEDICAL INTERPRETER Ot 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, 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 03/04/[address]/MEDICAL INTERPRETER Ot 250.00 DIAB ALONDRA WO COMPL, TYPE II OR UNSPEC TY 03/04/[address]/MEDICAL INTERPRETER Ot V58.67 LONG-TERM (CURRENT) USE OF INSULIN 03/04/[address]/MEDICAL INTERPRETER Ot V58.69 OTH MED,LT,CURRENT USE 03/04/[address]/MEDICAL INTERPRETER Ot V76.12 OTH SCREEN MAMMO-MALIGN NEOPLASM OF SILVINA 03/04/[address] S CERT[address]IED COURT/MEDICAL INTERPRETER Ot 793.80 UNSPEC ABNORMAL MAMMOGRAM 03/04/2018 Ot 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, 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 03/04/2018 Ot 250.00 DIAB ALONDRA WO COMPL, TYPE II OR UNSPEC TY 03/04/2018 Ot V58.67 LONG-TERM ( CURRENT) USE OF INSULIN 03/04/2018 Ot V58.69 OTH MED,LT, CURRENT USE 03/04/2018 Ot 272.4 HYPERLIPIDEMIA NEC/NOS 03/04/[address]/MEDICAL INTERPRETER Ot R22.31 LOCALIZED SWELLING, MASS AND LUMP, RIGHT 03/04/[address]/MEDICAL INTERPRETER Ot 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 LYMPHOCYTIC LEUK OF B-CELL TYPE 03/04/[address]/MEDICAL INTERPRETER Ot E11.9 TYPE 2 DIABETES MELLITUS WITHOUT COMPLIC 03/04/[address]/MEDICAL INTERPRETER Ot I10 ESSENTIAL (PRIMARY) HYPERTENSION 03/04/[address]/MEDICAL INTERPRETER Ot 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 03/04/[address] S CERTIFIED COURT/MEDICAL INTERPRETER Ot Z79.899 OTHER SNF (CURRENT) DRUG THERAPY 03/04/[address]/MEDICAL INTERPRETER Ot 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 LYMPHOCYTIC LEUK OF B-CELL TYPE 03/04/[address]/MEDICAL INTERPRETER Ot E11.9 TYPE 2 DIABETES MELLITUS WITHOUT COMPLIC 03/04/[address]/MEDICAL INTERPRETER Ot I10 ESSENTIAL (PRIMARY) HYPERTENSION 03/04/[address]/MEDICAL INTERPRETER Ot Z79.4 SNF (CURRENT) USE OF INSULIN 03/04/[address] NG S CERTIFIED COURT/MEDICAL INTERPRETER Ot Z79.899 OTHER SNF (CURRENT) DRUG THERAPY 03/04/[address]/MEDICAL INTERPRETER Ot R92.8 OTH ABN AND INCONCLUSIVE FINDINGS ON DX 03/04/2018 VIRY MORAN Ot 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 LYMPHOCYTIC LEUK OF B-CELL TYPE 03/04/2018 VIRY MORAN Ot E11.9 TYPE 2 DIABETES MELLITUS WITHOUT COMPLIC 03/04/2018 VIRY MORAN Ot I10 ESSENTIAL (PRIMARY) HYPERTENSION 03/04/2018 VIRY MORAN Ot 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 03/04/2018 VIRY MORAN Ot 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 03/04/2018 ANTONINO WALLER APRN Ot N64.52 NIPPLE DISCHARGE 03/04/2018 VIRY MORAN Ot 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 LYMPHOCYTIC LEUK OF B-CELL TYPE 03/04/2018 VIRY MORAN Ot E11.9 TYPE 2 DIABETES MELLITUS WITHOUT COMPLIC 03/04/2018 VIRY MORAN Ot I10 ESSENTIAL (PRIMARY) HYPERTENSION 03/04/2018 VIRY MORAN Ot 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 03/04/2018 VIRY MORAN Ot Z79.899 OTHER SNF (CURRENT) DRUG THERAPY 03/04/[address] S CERTIFIED COURT/MEDICAL INTERPRETER Ot Z12.31 ENCNTR SCREEN MAMMOGRAM FOR MALIGNANT NE 03/05/[address] NG S CERTIFIED COURT/MEDICAL INTERPRETER Ot 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 LYMPHOCYTIC LEUK OF B-CELL TYPE 03/05/2018 NG, HILAH S CERTIFIED COURT/MEDICAL INTERPRETER Ot R22.31 LOCALIZED SWELLING, MASS AND LUMP, RIGHT 03/05/2018 MAUDE NG S CERTIFIED COURT/MEDICAL INTERPRETER Ot R92.8 OTH ABN AND INCONCLUSIVE FINDINGS ON DX 03/26/2018 MAUDE NG S CERTIFIED COURT/MEDICAL INTERPRETER Ot 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 LYMPHOCYTIC LEUK OF B-CELL TYPE 03/26/2018 MAUDE NG S CERTIFIED COURT/MEDICAL INTERPRETER Ot R22.31 LOCALIZED SWELLING, MASS AND LUMP, RIGHT 03/26/2018 NGMAUDE Vernon S CERTIFIED COURT/MEDICAL INTERPRETER Ot R92.8 OTH ABN AND INCONCLUSIVE FINDINGS ON DX 03/27/2018 MARY SAHU, CHITO Rawls Ot Z01.818 ENCOUNTER [...] RIGHT 03/29/2018 CHITO HERNANDEZ MD, Ot Z79.02 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 ANTITHROMBOTI 03/29/2018 HERNANDEZ MD, CHITO M Ot Z79.4 SNF (CURRENT) USE OF INSULIN 03/29/2018 CHITO HERNANDEZ MD Ot Z79.82 SNF (CURRENT) USE OF ASPIRIN 04/04/2018 CHITO HERNANDEZ [...] AFFECT 04/04/2018 CHITO HERNANDEZ MD, Ot Z79.02 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 ANTITHROMBOTI 04/04/2018 CHITO HERNANDEZ MD, Ot Z79.4 SNF (CURRENT) USE OF INSULIN 04/04/2018 CHITO HERNANDEZ MD, Ot Z79.82 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 ASPIRIN 04/07/2018 CHITO HERNANDEZ [...] AFFECT 04/07/2018 CHITO HERNANDEZ MD Ot Z79.02 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 ANTITHROMBOTI 04/07/2018 CHITO HERNANDEZ MD, Ot Z79.4 SNF (CURRENT) USE OF INSULIN 04/07/2018 CHITO HERNANDEZ MD, Ot Z79.82 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 ASPIRIN 04/08/2018 CHITO HERNANDEZ [...] NEC, IN 04/09/2018 KEIRA LÓPEZIS Ot 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 04/09/2018 BERNMARITZA MONTSERRAT Ot Z79.82 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 ASPIRIN 04/09/2018 KEIRA LÓPEZIS [...] NEC, IN 04/11/2018 KEIRA LÓPEZIS Ot Z79.4 SNF (CURRENT) USE OF INSULIN 04/11/2018 RENE, MONTSERRAT Ot Z79.82 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 ASPIRIN 04/11/2018 KEIRA LÓPEZIS Ot Z85.6 PERSONAL HISTORY OF LEUKEMIA 04/11/2018 BRITTANIEOT, MONTSERRAT Ot Z86.73 PRSNL HX OF TIA (TIA), AND CEREB INFRC W 04/11/2018 KEIRA LÓPEZIS Ot Z87.448 PERSONAL HISTORY OF OTHER DISEASES OF UR 04/11/2018 KEIRA LÓPEZIS Ot Z98.51 TUBAL LIGATION STATUS 04/11/2018 MONTSERRAT LÓEPZ Ot Z98.890 OTHER SPECIFIED POSTPROCEDURAL STATES 04/22/2018 MARY SAHU, CHITO Rwals Ot C79.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 MALIGNANT NEOPLASM OF OTHER SP 04/30/2018 VIRY MORAN N Ot 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 LYMPHOCYTIC LEUK OF B-CELL TYPE 04/30/2018 SASHAVIRY ROWLAND N Ot E11.9 TYPE 2 DIABETES MELLITUS WITHOUT COMPLIC 04/30/2018 VIRY MORAN N Ot I10 ESSENTIAL (PRIMARY) HYPERTENSION 04/30/2018 VIRY MORAN N Ot 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 04/30/2018 VIRY MORAN N Ot Z79.899 OTHER SNF (CURRENT) DRUG THERAPY 05/07/2018 VIRY MORAN N Ot 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 LYMPHOCYTIC LEUK OF B-CELL TYPE 05/07/2018 SASHAVIRY ROWLAND N Ot E11.9 TYPE 2 DIABETES MELLITUS WITHOUT COMPLIC 05/07/2018 VIRY MORAN N Ot I10 ESSENTIAL (PRIMARY) HYPERTENSION 05/07/2018 VIRY MORAN N Ot 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 05/07/2018 VIRY MORAN N Ot Z79.899 OTHER SNF (CURRENT) DRUG THERAPY 05/07/2018 MARY SAHU, CHITO [...] 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 05/28/2018 [address]MAUDE Vernon S CERTIFIED COURT/MEDICAL INTERPRETER Ot 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, 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 05/28/[address]/MEDICAL INTERPRETER Ot 250.00 DIAB ALONDRA WO COMPL, TYPE II OR UNSPEC TY 05/28/[address] S CERTIFIED COURT/MEDICAL INTERPRETER Ot 438.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,HEMIPLEGIA AFFECTING 05/28/[address] C[address]/MEDICAL INTERPRETER Ot 780.79 OTH MALAISE FATIGUE 05/28/[address] S CERTIFIED COURT/MEDICAL INTERPRETER Ot V58.67 LONG-TERM (CURRENT) USE OF INSULIN 05/28/[address] S CERT[address]IED [address]/MEDICAL INTERPRETER Ot V58.69 OTH MED,LT,CURRENT USE 05/28/[address]/MEDICAL INTERPRETER Ot 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, 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 05/28/[address]/MEDICAL INTERPRETER Ot V58.69 OTH MED,LT,CURRENT USE 05/28/2018 VIRY MORAN Ot 729.5 PAIN IN LIMB 05/28/[address]/MEDICAL INTERPRETER Ot 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, 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 05/28/[address]/MEDICAL INTERPRETER Ot 250.00 DIAB ALONDRA WO COMPL, TYPE II OR UNSPEC TY 05/28/[address]/MEDICAL INTERPRETER Ot V58.67 LONG-TERM (CURRENT) USE OF INSULIN 05/28/[address] C[address]/MEDICAL INTERPRETER Ot V58.69 OTH MED,LT,CURRENT USE 05/28/[address]/MEDICAL INTERPRETER Ot V76.12 OTH SCREEN MAMMO-MALIGN NEOPLASM OF SILVINA 05/28/[address] S CERT[address]IED COURT/MEDICAL INTERPRETER Ot 793.80 UNSPEC ABNORMAL MAMMOGRAM 05/28/2018 Ot 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, 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 05/28/2018 Ot 250.00 DIAB ALONDRA WO COMPL, TYPE II OR UNSPEC TY 05/28/2018 Ot V58.67 LONG-TERM ( CURRENT) USE OF INSULIN 05/28/2018 Ot V58.69 OTH MED,LT, CURRENT USE 05/28/2018 Ot 272.4 HYPERLIPIDEMIA NEC/NOS 05/28/[address]/MEDICAL INTERPRETER Ot R22.31 LOCALIZED SWELLING, MASS AND LUMP, RIGHT 05/28/[address]/MEDICAL INTERPRETER Ot 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 LYMPHOCYTIC LEUK OF B-CELL TYPE 05/28/[address]/MEDICAL INTERPRETER Ot E11.9 TYPE 2 DIABETES MELLITUS WITHOUT COMPLIC 05/28/[address]/MEDICAL INTERPRETER Ot I10 ESSENTIAL (PRIMARY) HYPERTENSION 05/28/[address]/MEDICAL INTERPRETER Ot Z79.4 SNF (CURRENT) USE OF INSULIN 05/28/2018 MAUDE NGP Ot Z79.899 OTHER SNF (CURRENT) DRUG THERAPY 05/28/2018 MAUDE NGP Ot 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 LYMPHOCYTIC LEUK OF B-CELL TYPE 05/28/[address]/MEDICAL INTERPRETER Ot E11.9 TYPE 2 DIABETES MELLITUS WITHOUT COMPLIC 05/28/[address]/MEDICAL INTERPRETER Ot I10 ESSENTIAL (PRIMARY) HYPERTENSION 05/28/[address]/MEDICAL INTERPRETER Ot 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 05/28/2018 MAUDE NGP Ot 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 05/28/2018 MAUDE NGP Ot R92.8 OTH ABN AND INCONCLUSIVE FINDINGS ON DX 05/28/2018 VIRY MORAN Ot 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 LYMPHOCYTIC LEUK OF B-CELL TYPE 05/28/2018 VIRY MORAN Ot E11.9 TYPE 2 DIABETES MELLITUS WITHOUT COMPLIC 05/28/2018 VIRY MORAN Ot I10 ESSENTIAL (PRIMARY) HYPERTENSION 05/28/2018 VIRY MORAN Ot 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 05/28/2018 VIRY MORAN Ot 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 05/28/2018 ANTONINO WALLER APRN Ot N64.52 NIPPLE DISCHARGE 05/28/[address]/MEDICAL INTERPRETER Ot 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 LYMPHOCYTIC LEUK OF B-CELL TYPE 05/28/[address]/MEDICAL INTERPRETER Ot R22.31 LOCALIZED SWELLING, MASS AND LUMP, RIGHT 05/28/[address]/MEDICAL INTERPRETER Ot R92.8 OTH ABN AND INCONCLUSIVE FINDINGS [...] HYPERTENSION 05/28/2018 VIRY MORAN N Ot Z79.4 SNF (CURRENT) USE OF INSULIN 05/28/2018 VIRY MORAN N Ot 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 05/28/2018 CHITO HERNANDEZ MD [...] HYPERTENSION 05/28/2018 VIRY MORAN N Ot 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 05/28/2018 VIRY MORAN N Ot Z79.899 OTHER SNF (CURRENT) DRUG THERAPY 05/28/2018 CHITO HERNANDEZ MD, Ot C50.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 05/28/2018 VIRY MORAN Ot 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, 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 05/28/[address]/MEDICAL INTERPRETER Ot 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, 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 05/28/[address] NG S CERTIFIED COURT/MEDICAL INTERPRETER Ot 250.00 DIAB ALONDRA WO COMPL, TYPE II OR UNSPEC TY 05/28/[address] NG S CERTIFIED COURT/MEDICAL INTERPRETER Ot 438.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,HEMIPLEGIA AFFECTING 05/28/[address] S CERTIFIED [address]/MEDICAL INTERPRETER Ot 780.79 OTH MALAISE FATIGUE 05/28/[address]/MEDICAL INTERPRETER Ot V58.67 LONG-TERM (CURRENT) USE OF INSULIN 05/28/[address]/MEDICAL INTERPRETER Ot V58.69 OTH MED,LT,CURRENT USE 05/28/[address]/MEDICAL INTERPRETER Ot 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, 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 05/28/2018 MAUDE NGP Ot V58.69 OTH MED,LT,CURRENT USE 05/28/2018 VIRY MORAN Ot 729.5 PAIN IN LIMB 05/28/[address]/MEDICAL INTERPRETER Ot 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, 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 05/28/[address]/MEDICAL INTERPRETER Ot 250.00 DIAB ALONDRA WO COMPL, TYPE II OR UNSPEC TY 05/28/[address] NG S CERTIFIED COURT/MEDICAL INTERPRETER Ot V58.67 LONG-TERM (CURRENT) USE OF INSULIN 05/28/[address]/MEDICAL INTERPRETER Ot V58.69 OTH MED,LT,CURRENT USE 05/28/2018 MAUDE NGP Ot V76.12 OTH SCREEN MAMMO-MALIGN NEOPLASM OF SILVINA 05/28/[address] S CERT[address]IED [address]/MEDICAL INTERPRETER Ot 793.80 UNSPEC ABNORMAL MAMMOGRAM 05/28/2018 Ot 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, 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 05/28/2018 Ot 250.00 DIAB ALONDRA WO COMPL, TYPE II OR UNSPEC TY 05/28/2018 Ot V58.67 LONG-TERM ( CURRENT) USE OF INSULIN 05/28/2018 Ot V58.69 OTH MED,LT, CURRENT USE 05/28/2018 Ot 272.4 HYPERLIPIDEMIA NEC/NOS 05/28/[address]/MEDICAL INTERPRETER Ot R22.31 LOCALIZED SWELLING, MASS AND LUMP, RIGHT 05/28/2018 MAUDE NG Janeen CERTIFIED COURT/MEDICAL INTERPRETER Ot 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 LYMPHOCYTIC LEUK OF B-CELL TYPE 05/28/2018 [address]XIE Vernon CERTIFIED COURT/MEDICAL INTERPRETER Ot E11.9 TYPE 2 DIABETES MELLITUS WITHOUT COMPLIC 05/28/[address] S CERT[address]IED [address]/MEDICAL INTERPRETER Ot I10 ESSENTIAL (PRIMARY) HYPERTENSION 05/28/[address] Vernon CERTIFIED COURT/MEDICAL INTERPRETER Ot Z79.4 SNF (CURRENT) USE OF INSULIN 05/28/[address] S CERT[address]IED [address]/MEDICAL INTERPRETER Ot Z79.899 OTHER SNF (CURRENT) DRUG THERAPY 05/28/2018 RAFI [address]GLEXIE Vernon CERTIFIED COURT/MEDICAL INTERPRETER Ot 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 LYMPHOCYTIC LEUK OF B-CELL TYPE 05/28/2018 RAFI NGLEXIE Vernon CERTIFIED COURT/MEDICAL INTERPRETER Ot E11.9 TYPE 2 DIABETES MELLITUS WITHOUT COMPLIC 05/28/2018 RAFI NGLEXIE Vernon CERTIFIED COURT/MEDICAL INTERPRETER Ot I10 ESSENTIAL (PRIMARY) HYPERTENSION 05/28/2018 [address]XIE Vernon CERTIFIED COURT/MEDICAL INTERPRETER Ot Z79.4 SNF (CURRENT) USE OF INSULIN 05/28/2018 RAFI NGLEXIE Vernon CERTIFIED COURT/MEDICAL INTERPRETER Ot 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 05/28/2018 RAFI NGLEXIE Vernon CERTIFIED COURT/MEDICAL INTERPRETER Ot R92.8 OTH ABN AND INCONCLUSIVE FINDINGS ON DX 05/28/2018 VIRY MORAN Ot 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 LYMPHOCYTIC LEUK OF B-CELL TYPE 05/28/2018 VIRY MORAN Ot E11.9 TYPE 2 DIABETES MELLITUS WITHOUT COMPLIC 05/28/2018 VIRY MORAN Ot I10 ESSENTIAL (PRIMARY) HYPERTENSION 05/28/2018 VIRY MORAN Ot 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 05/28/2018 VIRY MORAN Ot Z79.899 OTHER SNF (CURRENT) DRUG THERAPY 05/28/2018 ANTONINO WALLER APRN Ot N64.52 NIPPLE DISCHARGE 05/28/[address] S C[address]/MEDICAL INTERPRETER Ot 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 LYMPHOCYTIC LEUK OF B-CELL TYPE 05/28/[address]UDE S CERTIFIED COURT/MEDICAL INTERPRETER Ot R22.31 LOCALIZED SWELLING, MASS AND LUMP, RIGHT 05/28/2018 MAUDE NG Janeen CERTIFIED COURT/MEDICAL INTERPRETER Ot R92.8 OTH ABN AND INCONCLUSIVE FINDINGS ON DX 05/28/2018 MARY SAHU, CHITO Rawls Ot 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 05/28/2018 MARY SAHU, CHITO Rawls Ot 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 05/28/2018 MARY SAHU, CHITO Rawls Ot Z53.09 PROC/TRTMT NOT CARRIED OUT BECAUSE [...] (PRIMARY) HYPERTENSION 05/28/2018 VIRY MORAN Ot Z79.4 SNF (CURRENT) USE OF INSULIN 05/28/2018 VIRY MORAN Ot Z79.899 OTHER SNF (CURRENT) DRUG THERAPY 05/28/2018 MARY SAHU, CHITO Rawls Ot C50.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 05/28/2018 CHITO HERNANDEZ MD Ot K80.20 CALCULUS OF GALLBLADDER W/O CHOLECYSTITI 05/28/2018 CHITO HERNANDEZ MD Ot K80.20 CALCULUS OF GALLBLADDER W/O CHOLECYSTITI 05/28/2018 CHITO HERNANDEZ MD, Ot R92.8 OTH ABN AND INCONCLUSIVE FINDINGS ON DX 05/28/2018 MAUDE NG Ot 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 LYMPHOCYTIC LEUK OF B-CELL TYPE 05/28/[address]/MEDICAL INTERPRETER Ot R22.31 LOCALIZED SWELLING, MASS AND LUMP, RIGHT 05/28/2018 MAUDE NG Ot R92.8 OTH ABN AND INCONCLUSIVE FINDINGS ON DX 05/30/2018 VIRY MORAN Ot 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, 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 05/30/[address]/MEDICAL INTERPRETER Ot 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, 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 05/30/[address]/MEDICAL INTERPRETER Ot 250.00 DIAB ALONDRA WO COMPL, TYPE II OR UNSPEC TY 05/30/[address]/MEDICAL INTERPRETER Ot 438.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,HEMIPLEGIA AFFECTING 05/30/[address]/MEDICAL INTERPRETER Ot 780.79 OTH MALAISE FATIGUE 05/30/[address]/MEDICAL INTERPRETER Ot V58.67 LONG-TERM (CURRENT) USE OF INSULIN 05/30/[address]/MEDICAL INTERPRETER Ot V58.69 OTH MED,LT,CURRENT USE 05/30/[address]/MEDICAL INTERPRETER Ot 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, 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 05/30/[address]/MEDICAL INTERPRETER Ot V58.69 OTH MED,LT,CURRENT USE 05/30/2018 VIRY MORAN Ot 729.5 PAIN IN LIMB 05/30/[address]/MEDICAL INTERPRETER Ot 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, 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 05/30/[address]/MEDICAL INTERPRETER Ot 250.00 DIAB ALONDRA WO COMPL, TYPE II OR UNSPEC TY 05/30/[address]/MEDICAL INTERPRETER Ot V58.67 LONG-TERM (CURRENT) USE OF INSULIN 05/30/[address]/MEDICAL INTERPRETER Ot V58.69 OTH MED,LT,CURRENT USE 05/30/2018 MAUDE NGP Ot V76.12 OTH SCREEN MAMMO-MALIGN NEOPLASM OF SILVINA 05/30/[address]/MEDICAL INTERPRETER Ot 793.80 UNSPEC ABNORMAL MAMMOGRAM 05/30/2018 Ot 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, 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 05/30/2018 Ot 250.00 DIAB ALONDRA WO COMPL, TYPE II OR UNSPEC TY 05/30/2018 Ot V58.67 LONG-TERM ( CURRENT) USE OF INSULIN 05/30/2018 Ot V58.69 OTH MED,LT, CURRENT USE 05/30/2018 Ot 272.4 HYPERLIPIDEMIA NEC/NOS 05/30/[address]/MEDICAL INTERPRETER Ot R22.31 LOCALIZED SWELLING, MASS AND LUMP, RIGHT 05/30/[address]/MEDICAL INTERPRETER Ot 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 LYMPHOCYTIC LEUK OF B-CELL TYPE 05/30/[address] C[address]/MEDICAL INTERPRETER Ot E11.9 TYPE 2 DIABETES MELLITUS WITHOUT COMPLIC 05/30/[address]/MEDICAL INTERPRETER Ot I10 ESSENTIAL (PRIMARY) HYPERTENSION 05/30/[address]/MEDICAL INTERPRETER Ot Z79.4 SNF (CURRENT) USE OF INSULIN 05/30/[address]/MEDICAL INTERPRETER Ot Z79.899 OTHER SNF (CURRENT) DRUG THERAPY 05/30/[address] S CERT[address]IED [address]/MEDICAL INTERPRETER Ot 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 LYMPHOCYTIC LEUK OF B-CELL TYPE 05/30/2018 [address] S CERTIFIED COURT/MEDICAL INTERPRETER Ot E11.9 TYPE 2 DIABETES MELLITUS WITHOUT COMPLIC 05/30/[address]/MEDICAL INTERPRETER Ot I10 ESSENTIAL (PRIMARY) HYPERTENSION 05/30/[address]/MEDICAL INTERPRETER Ot Z79.4 SNF (CURRENT) USE OF INSULIN 05/30/[address]/MEDICAL INTERPRETER Ot Z79.899 OTHER SNF (CURRENT) DRUG THERAPY 05/30/[address]/MEDICAL INTERPRETER Ot R92.8 OTH ABN AND INCONCLUSIVE FINDINGS ON DX 05/30/2018 VIRY MORAN N Ot 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 LYMPHOCYTIC LEUK OF B-CELL TYPE 05/30/2018 SASHAVIRY ROWLAND N Ot E11.9 TYPE 2 DIABETES MELLITUS WITHOUT COMPLIC 05/30/2018 SASHAVIRY ROWLAND N Ot I10 ESSENTIAL (PRIMARY) HYPERTENSION 05/30/2018 SASHAVIRY ROWLAND N Ot 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 05/30/2018 VIRY MORAN N Ot 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 05/30/2018 ANGELA WALLERELE Florian FRY Ot N64.52 NIPPLE DISCHARGE 05/30/[address]/MEDICAL INTERPRETER Ot 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 LYMPHOCYTIC LEUK OF B-CELL TYPE 05/30/2018 [address]MAUDE Vernon S CERTIFIED COURT/MEDICAL INTERPRETER Ot R22.31 LOCALIZED SWELLING, MASS AND LUMP, RIGHT 05/30/2018 [address]ER[address]DE Vernon CERTIFIED COURT/MEDICAL INTERPRETER Ot R92.8 OTH ABN AND INCONCLUSIVE FINDINGS ON DX 05/30/2018 CHITO HERNANDEZ MD Ot 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 05/30/2018 CHITO HERNANDEZ MD, Ot 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 05/30/2018 CHITO HERNANDEZ MD, Ot Z53.09 PROC/TRTMT NOT CARRIED OUT BECAUSE OF CO 05/30/2018 CHITO HERNANDEZ MD, Ot C79.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 MALIGNANT NEOPLASM OF OTHER SP 05/30/2018 CHITO HERNANDEZ MD Ot R92.8 OTH ABN AND INCONCLUSIVE FINDINGS ON DX 05/30/2018 SASHA, VIRY Black Ot 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 LYMPHOCYTIC LEUK OF B-CELL TYPE 05/30/2018 SASHA, VIRY Black Ot E11.9 TYPE 2 DIABETES MELLITUS WITHOUT COMPLIC 05/30/2018 VIRY MORAN Ot I10 ESSENTIAL (PRIMARY) HYPERTENSION 05/30/2018 SASHAVIRY Ot Z79.4 SNF (CURRENT) USE OF INSULIN 05/30/2018 SASHA, VIRY Black Ot 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 05/30/2018 CHITO HERNANDEZ MD, Ot C50.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 05/30/2018 CHITO HERNANDEZ MD Ot K80.20 CALCULUS OF GALLBLADDER W/O CHOLECYSTITI 05/30/[address]/MEDICAL INTERPRETER Ot 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 LYMPHOCYTIC LEUK OF B-CELL TYPE 05/30/[address]/MEDICAL INTERPRETER Ot R22.31 LOCALIZED SWELLING, MASS AND LUMP, RIGHT 05/30/2018 MAUDE NGP Ot R92.8 OTH ABN AND INCONCLUSIVE FINDINGS ON DX 06/03/2018 CHITO HERNANDEZ MD, Ot C50.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 06/03/2018 CHITO HERNANDEZ MD, Ot 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 06/03/2018 CHITO HERNANDEZ MD, Ot 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 LYMPHOCYTIC LEUK OF B-CELL TYPE 06/03/2018 CHITO HERNANDEZ MD Ot E11.65 TYPE 2 DIABETES MELLITUS WITH HYPERGLYCE 06/03/2018 CHITO HERNANDEZ MD Ot E66.9 OBESITY, UNSPECIFIED 06/03/2018 CHITO HERNANDEZ MD Ot E78.00 PURE HYPERCHOLESTEROLEMIA, UNSPECIFIED 06/03/2018 CHITO HERNANDEZ MD, Ot I10 ESSENTIAL (PRIMARY) HYPERTENSION 06/03/2018 CHITO HERNANDEZ MD Ot I69.354 HEMIPLGA FOLLOWING CEREBRAL INFRC AFFECT 06/03/2018 CHITO HERNANDEZ MD Ot K21.9 GASTRO-ESOPHAGEAL REFLUX DISEASE WITHOUT 06/03/2018 CHITO HERNANDEZ MD, Ot K59.00 CONSTIPATION, UNSPECIFIED 06/03/2018 CHITO HERNANDEZ MD, Ot K80.20 CALCULUS OF GALLBLADDER W/O CHOLECYSTITI 06/03/2018 CHITO HERNANDEZ MD Ot N19 UNSPECIFIED KIDNEY FAILURE 06/03/2018 CHITO HERNANDEZ MD, Ot N31.9 NEUROMUSCULAR DYSFUNCTION OF BLADDER, UN 06/03/2018 CHITO HERNANDEZ MD, Ot R33.8 OTHER RETENTION OF URINE 06/03/2018 CHITO HERNANDEZ MD Ot Z23 ENCOUNTER FOR IMMUNIZATION 06/03/2018 CHITO HERNANDEZ MD, Ot Z68.34 BODY MASS INDEX (BMI) 34.0-34.9, ADULT 06/03/2018 CHITO HERNANDEZ MD, Ot 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 06/05/2018 CHITO HERNANDEZ MD, Ot C50.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 06/10/2018 CHITO HERNANDEZ MD, Ot R92.8 OTH ABN AND INCONCLUSIVE FINDINGS ON DX Procedures Code [place] [address] ROUTINE VENIPUNCTURE 06/26/2012 94012 XRAY FOOT RIGHT COMP MIN 3 VIEWS 06/26/2012 65602 A1C (IN-HOUSE) 06/26/2012 91705 MICRO ALBUMIN-IN HOUSE 06/26/2012 05095 UA W/ CULTURE IF INDICATED 06/26/2012 01297 BMP 06/26/2012 5276539 GFR CALC (RESULT ONLY) 06/26/2012 68538 LIPID PANEL 07/03/2012 29980 VITAMIN D 25-HYDROXY (D2,D3 , TOTAL) 07/04/2012 38788 TSH 07/04/2012 12310 ROUTINE VENIPUNCTURE 07/04/2012 84520 BARIUM SWALLOW XRAY MODIFIED 07/04/2012 Physical Speech Therapy, [facility] 08/22/2012 59347 ROUTINE VENIPUNCTURE 10/16/2012 94547 MICRO ALBUMIN-IN HOUSE 10/16/2012 16950 A1C (IN-HOUSE) 10/16/2012 56517 CMP 10/16/2012 0565527 GFR CALC (RESULT ONLY) 10/16/2012 60442 CBC 10/16/2012 41899 ROUTINE VENIPUNCTURE 11/13/2012 88903 CBC 11/13/2012 62048 PERIPHERIAL BLOOD SMEAR 11/19/2012 [id number] HEMATOLOGY OTHER REPORT 11/20/2012 56174 ROUTINE VENIPUNCTURE 11/28/2012 Medical O Viry Moran 11/28/2012 49860 PERIPHERAL BLOOD FLOW CYTOMETRY 12/02/2012 45383 ROUTINE VENIPUNCTURE 01/23/2013 83725 A1C (IN-HOUSE) 01/23/2013 93460 MICRO ALBUMIN-IN HOUSE 01/23/2013 83589 BMP 01/23/2013 53742 MAGNESIUM 01/23/2013 7589710 GFR CALC (RESULT ONLY) 01/23/2013 89336 A1C (IN-HOUSE) 05/07/2013 49890 ROUTINE VENIPUNCTURE 09/11/2013 92641 HEMOGLOBIN (IN-HOUSE) 09/11/2013 35477 A1C (IN-HOUSE) 09/11/2013 53801 CMP 09/11/2013 03132 LIPID PANEL 09/11/2013 66789 MAGNESIUM 09/11/2013 8117882 GFR CALC (RESULT ONLY) 09/11/2013 31074 MICROALBUMIN 09/11/2013 92094 ROUTINE VENIPUNCTURE 11/24/2013 20132 BMP 11/24/2013 77417 A1C (IN-HOUSE) 01/07/2014 12332 A1C (IN-HOUSE) 04/08/2014 56504 A1C (IN-HOUSE) 07/08/2014 21113 US BREAST ULTRASOUND, RIGHT 07/22/2014 71473 MAMMOGRAM DX, RIGHT 07/22/2014 [id number] RESECTION OF RIGHT AXILLARY LYMPHATIC, O 05/29/2018 [id number] RESECTION OF GALLBLADDER, PERCUTANEOUS E 05/29/2018 [id number] EXCISION OF RIGHT UPPER ARM SKIN, OFFICE ADMINISTRATOR 05/29/2018 [id number] RESECTION OF RIGHT BREAST , OPEN APPROACH 05/29/2018 [id number] ROBOTIC ASSISTED PROCEDURE OF TRUNK, PER 05/29/2018 Results Test Result Range Comp. Metabolic Panel [...] ALT (SGPT) 24 IU/L 0-32 Microalb/Creat Ratio, [facility] Ur - 09/13/16 11:35 Creatinine, Urine 220.3 [...] 7-25 CREATININE 0.89 mg/dL 0.50-0.99 eGFR NON-AFR. [place] 68 mL/min/1.73m2 > OR=60 eGFR 78 mL/min/1.73m2 [...] Status Pt. Type Provider Facility Loc./Unit Complaint [id number] 10/14/2014 10:54:00 10/14/2014 23:59:59 CLS Outpatient CHRIS PATINO CATALINO Giovani [id number] 07/08/2014 13:33:00 07/08/2014 23:59:59 CLS Outpatient PEREZ DO CATALINO K [id number] 07/08/2014 13:33:00 07/08/2014 23:59:59 CLS Outpatient MADL HAND PASTER, DELLA L [id number] 04/08/2014 13:02:00 04/08/2014 23:59:59 CLS Outpatient MADL HAND PASTER, DELLA L [id number] 04/08/2014 13:02:00 04/08/2014 23:59:59 CLS Outpatient MADL HAND PASTER, DELLA L [id number] 01/07/2014 14:50:00 01/07/2014 23:59:59 CLS Outpatient MADL HAND PASTER, DELLA L [id number] 01/07/2014 14:50:00 01/07/2014 23:59:59 CLS Outpatient MADL HAND PASTER, DELLA L [id number] 12/23/2013 14:44:00 12/23/2013 23:59:59 CLS Outpatient TIN OCASIO MD [id number] 11/24/2013 09:00:00 11/24/2013 23:59:59 CLS Outpatient CATALINO PEREZ DO [id number] 09/11/2013 09:49:00 09/11/2013 23:59:59 CLS Outpatient DANIEL CRISTINA MD [id number] 05/07/2013 16:19:00 05/07/2013 23:59:59 CLS Outpatient DANIEL CRISTINA MD [id number] 10/16/2012 09:04:00 10/16/2012 23:59:59 CLS Outpatient DANIEL CRISTINA MD [id number] 09/02/2012 18:28:00 09/02/2012 23:59:59 CLS Outpatient CATALINO PEREZ DO [id number] 07/03/2012 08:01:00 07/03/2012 23:59:59 [place] [id number] 07/03/2012 08:01:00 07/03/2012 23:59:59 CLS Outpatient [id number] 01/23/2013 10:45:00 Document Registration [id number] 12/25/2012 15:29:00 Document Registration [id number] 11/28/2012 13:45:00 Document Registration [id number] 11/19/2012 14:35:00 Document Registration [id number] 11/13/2012 09:51:00 Document Registration [id number] 02/27/2018 14:00:00 02/27/2018 23:59:59 CLS Outpatient ANTONINO WALLER [facility] [address] DENTAL [id number] 07/04/2017 11:20:00 Document Registration [id number] 05/29/2018 09:00:00 05/29/2018 23:59:59 CLS Outpatient CHITO HERNANDEZ MD [facility] 4TH GALLSTONES, METASTATIC DUCTAL CARCINOMA RT BREAST [id number] 05/27/2018 05:38:00 05/27/2018 14:02:00 DIS Outpatient CHITO HERNANDEZ MD [facility] PREOP GALLSTONES, METASTATIC DUCTAL CARCINOMA RT BREAST [id number] 05/15/2018 14:56:00 05/15/2018 23:59:59 CLS Outpatient CHITO HERNANDEZ MD [facility] RAD RUQ PAIN,GALLSTONES [id number] 05/14/2018 10:05:00 05/14/2018 23:59:59 CLS Outpatient CHITO HERNANDEZ MD [facility] CARD METASTATIC BREAST CANCER [id number] 05/10/2018 11:46:00 05/10/2018 23:59:59 CLS Preadmit CHITO HERNANDEZ MD [facility] RAD METASTATIC BREAST CANCER [id number] 05/07/2018 13:21:00 05/07/2018 23:59:59 CLS Outpatient CHITO HERNANDEZ MD [facility] RAD METASTATIC BREAST CA, ABN MRI [id number] 04/10/2018 10:17:00 05/07/2018 10:13:00 DIS Outpatient VIRY MORAN [facility] ONC [id number] 04/09/2018 14:21:00 04/09/2018 15:09:00 DIS Emergency MONTSERRAT LÓPEZ [facility] ER POST OP SITE OOZING [id number] 04/05/2018 07:45:00 04/05/2018 23:59:59 CLS Outpatient CHITO HERNANDEZ MD [facility] RAD C79.9 METASTATIC CA [id number] 04/04/2018 07:45:00 04/04/2018 23:59:59 CLS Outpatient CHITO HERNANDEZ MD [facility] LAB METASTATIC CANCER RIGHT AXILLA [id number] 03/29/2018 11:20:00 03/29/2018 15:35:00 DIS Outpatient CHITO HERNANDEZ MD [facility] SDC RIGHT AXILLA LUMP [id number] 03/27/2018 05:35:00 03/27/2018 23:59:59 CLS Outpatient CHITO HERNANDEZ MD [facility] PREOP RIGHT AXILLA LUMP [id number] 03/04/2018 10:21:00 03/04/2018 23:59:59 CLS Outpatient MAUDE NG CERTIFIED COURT/MEDICAL INTERPRETER [facility] RAD 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 [id number] 10/02/2017 14:07:00 10/02/2017 00:01:00 DIS Outpatient VIRY MORAN [facility] ONC [id number] 08/23/2017 20:53:00 08/23/2017 23:20:00 DIS Emergency DOMINIQUE SAHU, RUBY Darby [facility] ER LT RIB/HIP PAIN AFTER FALL [id number] 08/09/2017 10:08:00 08/09/2017 13:06:00 DIS Emergency 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 HAND PASTER [facility] ER NAUSEA,HEADACHE,ABD PAIN [id number] 12/20/2016 09:31:00 03/20/2017 00:01:00 DIS Outpatient VIRY MORAN Sofia [facility] ONC [id number] 03/01/2017 08:42:00 03/01/2017 23:59:59 CLS Outpatient ANTONINO WALLER APRN [facility] RAD N64.52 BLOODY DISCHARGE FROM R NIPPLE [id number] 11/20/2016 16:08:00 11/20/2016 17:58:00 DIS Emergency ALMA SAHU, EDWIN Carvajal [facility] ER COUGH/BACK PAIN [id number] 07/19/2016 09:09:00 10/17/2016 00:01:00 DIS Outpatient SASHAVIRY Sofia [facility] ONC [id number] 06/21/2016 13:05:00 06/21/2016 23:59:59 CLS Outpatient MAUDE NGP [facility] RAD ABNORMAL MAMMO [id number] 03/15/2016 08:55:00 03/15/2016 23:59:59 CLS Outpatient SASHAVIRY Sofia [facility] ONC [id number] 01/03/2016 13:34:00 01/03/2016 14:45:00 DIS Emergency JORGE LUIS TYLER MD [facility] ER LEFT HAND INJURY [id number] 12/22/2015 13:21:00 12/22/2015 23:59:59 CLS Outpatient MAUDE NG CERTIFIED COURT/MEDICAL INTERPRETER [facility] ONC [id number] 10/25/2015 09:32:00 10/25/2015 12:15:00 DIS Outpatient HERNANDEZ MD, CHITO M [facility] SDC SCREENING [id number] 10/21/2015 06:12:00 10/21/2015 12:31:00 DIS Outpatient CHITO HERNANDEZ MD [facility] PREOP SCREENING [id number] 09/16/2015 09:27:00 09/16/2015 23:59:59 CLS Outpatient MAUDE NG CERTIFIED COURT/MEDICAL INTERPRETER [facility] ONC [id number] 06/14/2015 13:45:00 06/14/2015 23:59:59 CLS Outpatient DELLA MCGEE L CERTIFIED COURT/MEDICAL INTERPRETER [facility] RAD RT AXILLARY KNOT [id number] 03/18/2015 12:42:00 05/05/2015 00:01:00 DIS Outpatient VIRY MORAN [facility] ONC [id number] 09/05/2014 10:01:00 09/05/2014 12:42:00 DIS Emergency 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 APRN [facility] ER LEG SWELLING [id number] 07/22/2014 13:16:00 07/22/2014 23:59:59 CLS Outpatient MAUDE NG CERTIFIED COURT/MEDICAL INTERPRETER [facility] RAD ABNORMAL MAMMO [id number] 07/15/2014 10:28:00 07/15/2014 23:59:59 CLS Outpatient MAUDE NG CERTIFIED COURT/MEDICAL INTERPRETER [facility] RAD SCREENING [id number] 07/08/2014 09:25:00 07/08/2014 23:59:59 CLS Outpatient MAUDE NG CERTIFIED COURT/MEDICAL INTERPRETER [facility] ONC [id number] 04/08/2014 09:04:00 07/07/2014 00:01:00 DIS Outpatient VIRY MORAN [facility] ONC [id number] 04/08/2014 10:11:00 04/08/2014 23:59:59 CLS Outpatient VIRY MORAN [facility] RAD LEFT L/E PAIN AND SWELLING [id number] 11/19/2013 10:00:00 11/19/2013 23:59:59 CLS Outpatient MAUDE NG [facility] ONC [id number] 10/01/2013 12:28:00 10/01/2013 14:10:00 DIS Emergency 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 APRN [facility] ER BACK PAIN [id number] 06/19/2013 09:12:00 09/17/2013 00:01:00 DIS Outpatient [id number] 08/27/2013 12:11:00 08/27/2013 14:51:00 DIS Emergency JAMIE GAMBLE DO [facility] ER [id number] 08/19/2013 13:43:00 08/19/2013 23:59:59 CLS Outpatient [id number] 03/20/2013 12:45:00 03/20/2013 23:59:59 CLS Outpatient MAUDE NG [facility] ONC [id number] 12/26/2012 13:21:00 03/11/2013 00:01:00 DIS Outpatient SASHA VIRY Black [facility] ONC [id number] 12/18/2012 07:59:00 12/18/2012 23:59:59 CLS Outpatient SASHA DUSTYWILEY Sofia [facility] RAD CLL [id number] 07/04/2018 11:00:00 PEN Preadmit SASHA VIRY Black [facility] RAD POST MENOPAUSAL [id number] 06/17/2018 10:16:00 ACT Outpatient SASHA VIRY Black [facility] ONC [id number] 04/04/2016 10:34:00 Document Registration [id number] 04/04/2016 10:34:00 Document Registration [id number] 10/30/2014 14:04:00 Document Registration [id number] 10/14/2014 09:41:00 Document Registration [id number] 02/15/2014 19:45:00 Document Registration [id number] 07/09/2012 10:29:00 Document Registration [id number] 07/10/2011 12:49:00 Document Registration [id number] 05/26/2011 12:31:00 Document Registration [id number] 05/23/2011 23:45:00 Document Registration [id number] 10/06/2010 13:20:00 Document Registration [id number] 03/22/2017 08:46:00 Document Registration [id number] 03/18/2015 12:43:03 ACT Document Registration [id number] 09/14/2016 12:10:00 Document Registration [id number] 04/20/2016 08:07:00 Document Registration [id number] 05/10/2016 08:06:00 Document Registration
--- NOTE | 2018-06-19 20:33 | ED General ---
General Chief Complaint: Catheter/Drain/Tube Problems Stated Complaint: DRAIN TUBE ISSUE,POKING IN BACK Nursing Triage Note: PATIENT STATES THAT SHE HAD RIGHT MASECTOMY ON 05/29/[address] HERNANDEZ. LANCE DRAIN PLACED AT THAT TIME. SHE LAST SAW DR. HERNANDEZ ON 06/17/18 AND HAS ANOTHER APPOINTMENT ON 06/21/18 WHEN SHE WAS HOPEFUL THAT THE LANCE WOULD BE REMOVED. IT HAS BEEN DRAINING AROUND THE LANCE AND HAS SOILED HER SHIRT AND STATES THAT IT FEEL LIKE SOMETHING IS "POKING HER" NEAR THE LANCE SITE. Nursing Sepsis Screen: No Definite Risk Source of Information: Patient Exam Limitations: No Limitations History of Present Illness Date Seen by Provider: Jun 19, 2018 Time Seen by Provider: 20:16 Initial Comments This 68-year-old woman presents to the emergency room with complaints of leaking around her LANCE drain site after mastectomy. She also has had some increased discomfort in recent days. Discomfort seems to be superior and medial to the drain insertion site. There is no trauma to the drain site that she is aware of. She continues to drain a small amount of serous fluid into the LACNE grenade. Her mastectomy was performed by Dr. Hernandez on May 29. She was seen in his clinic on June 17 and has an appointment again on June 21. She is hopeful to have the drain removed tonight. Allergies and Home Medications Allergies Coded Allergies: naproxen (Verified Allergy, Mild, KIDNEY ISSUES, 05/27/18) Home Medications Aspirin 81 Mg Tab.chew, 81 MG PO DAILY, (Reported) Atorvastatin Calcium 40 Mg Tablet, 40 MG PO HS, (Reported) Bethanechol Chloride 25 Mg Tablet, 25 MG PO ACHS Prescribed by: HOLLIS PAZ on 06/03/18 1314 Clopidogrel Bisulfate 75 Mg Tablet, 75 MG PO DAILY, (Reported) Dapagliflozin Propanediol 10 Mg Tablet, 10 MG PO DAILY, (Reported) Glimepiride 2 Mg Tablet, 2 MG PO BID, (Reported) Hydrocodone Bit/Acetaminophen 1 Tab Tab, 1 TAB PO Q6H PRN for PAIN-MODERATE Prescribed by: CHITO HERNANDEZ on 06/03/18 1133 Insulin Aspart 300 Units/3 Ml Solution, 30 UNITS SQ TIDAC, (Reported) Insulin Detemir 100 Unit/1 Ml Insuln.pen, 45 UNIT SQ BID, (Reported) Lisinopril 40 Mg Tablet, 40 MG PO DAILY, (Reported) Metoprolol Succinate 25 Mg Tab.er.24h, 12.5 MG PO BID, (Reported) TAKE 1/2 OF 25MG TAB Patient Home Medication List Home Medication List Reviewed: Yes Review of Systems Review of Systems Constitutional: no symptoms reported EENTM: no symptoms reported Respiratory: no symptoms reported Cardiovascular: no symptoms reported Gastrointestinal: no symptoms reported Musculoskeletal: no symptoms reported Skin: see HPI Psychiatric/Neurological: No Symptoms Reported Hematologic/Lymphatic: No Symptoms Reported Past Dkafdvx-Xsaskq-Iascuc Hx Patient Social History Alcohol Use: Denies Use Recreational Drug Use: No Smoking Status: Never a Smoker 2nd Hand Smoke Exposure: No Recent Foreign Travel: No Contact w/Someone Who Travel: No Recent Infectious Disease Expo: No Recent Hopitalizations: Yes (06/02/18-JADYN AND RIGHT MASECTOMY) Immunizations Up To Date Tetanus Booster (TDap): Less than 5yrs Date of Pneumonia Vaccine: May 06, 2013 Date of Influenza Vaccine: May 30, 2018 Seasonal Allergies Seasonal Allergies: No Past Medical History Surgeries: Yes ( D&C, R AXILLA LUMP) Breast, 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 Respiratory: No Cardiac: Yes High Cholesterol, Hypertension Neurological: Yes Stroke : No Reproductive Disorders: No PATENT PARALEGAL History: 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 Sexually Transmitted Disease: No HIV/AIDS: No Genitourinary: No Renal Failure Gastrointestinal: No Gastroesophageal Reflux Musculoskeletal: Yes Arthritis Endocrine: Yes Diabetes, Insulin dep Are Your Blood Sugars Over 250: No HEENT: No Loss of Vision: Denies Hearing Impairment: Denies Cancer: Yes Leukemia, Breast Psychosocial: No Integumentary: No Blood Disorders: No Adverse Reaction/Blood Tranf: No (N/A) Family Medical History Abdominal aortic aneurysm Alzheimer's disease Arthritis Cardiovascular disease Cataracts Completed stroke Dementia Diabetes mellitus Hypercholesterolemia Hypertension Myocardial infarction Neoplasm Psychosocial problem Thyroid disease Physical Exam Vital Signs Vital Signs - First Documented 06/19/18 19:27 Temp 97.8 Pulse 91 Resp 20 B/P (MAP) 151/55 (87) Pulse Ox 96 O2 Delivery Room Air Capillary Refill : Less Than 3 Seconds Height, Weight, BMI Height: 5'4.00" Weight: 187lbs. 8.0oz. 85.482862yt; 34.9 BMI Method:Actual General Appearance: No Apparent Distress, WD/WN HEENT: Normal ENT Inspection Neck: Normal Inspection Respiratory: Lungs Clear, Normal Breath Sounds, No Accessory Muscle Use Cardiovascular: Regular Rate, Rhythm, No Murmur Neurologic/Psychiatric: Alert, Oriented x3, No Motor/Sensory Deficits, Normal Mood/Affect, solution developer II-XII Norm as Tested Skin: Warm/Dry, Other (surgical wounds on the right axilla and right chest appear well-healing, clean, and dry. She has serosanguineous drainage drying on the dressings around the LANCE drain site. There is a small amount of serous fluid within the LANCE grenade. There is no swelling or inflammatory change around the surgical sites or the drain site. She does have some mild to moderate tenderness to palpation in the operative areas.) Progress/Results/Core Measures Suspected Sepsis Recent Fever Within 48 Hours: No Infection Criteria Present: None New/Unexplained Altered Menta: No Sepsis Screen: No Definite Risk SIRS Temperature:97.8 Pulse: 91 Respiratory Rate: 20 Blood Pressure 151 /55 Mean: 87 Results/Orders Vital Signs/I&O 06/19/18 19:27 Temp 97.8 Pulse 91 Resp 20 B/P (MAP) 151/55 (87) Pulse Ox 96 O2 Delivery Room Air Capillary Refill : Less Than 3 Seconds Blood Pressure Mean: 87 Progress Note : Progress Note There is no evidence of infection, seroma, or other concerns at the operative site. Patient did have some tenderness in the region. There was some dry serosanguineous drainage on her dressing. There did not seem to be any active leaking at the time of my exam. There is about 10-20 mL of serous drainage in the LANCE grenade. I discussed the case with Dr. Hernandez who requested to see the patient in clinic tomorrow at 09:30. In the meantime we will put a bulky absorbent dressing over the site. Patient has pain medications at home she can take if needed. Departure Impression Primary Impression: Postoperative pain Additional Impression: Wound drainage Disposition: HOME, SELF-CARE Condition: Stable Departure-Patient Inst. Decision time for Depature: 20:34 Referrals: [facility] (PCP/Family) Primary Care Physician Patient Instructions: Luisito-Cool Drain Add. Discharge Instructions: See Dr. Hernandez in his office tomorrow, morning, at 9:30. Until then continue to manage the drain as previously instructed. Use your pain medications as previously directed to manage the pain. Return to care if you have worsening symptoms in the meantime. All discharge instructions reviewed with patient and/or family. Voiced understanding. Copy Copies To 1: CHITO HERNANDEZ MD, JOSHUA T MD Jun 19, 2018 20:33
[2018-06-19 20:42] VITALS: BP 133/66
== END 2018-06-19 20:45 | disposition home or self-care (01) ==
LOC: EDUNIT# 18:50 → ER 18:51
DX: T81.89XA Other complications of procedures, not elsewhere classified, initial encounter (principal); G89.29 Other chronic pain; E78.00 Pure hypercholesterolemia, unspecified; I10 Essential (primary) hypertension; K21.9 Gastro-esophageal reflux disease without esophagitis; E11.9 Type 2 diabetes mellitus without complications; Z85.6 Personal history of leukemia; Z85.3 Personal history of malignant neoplasm of breast; Z86.73 Personal history of transient ischemic attack (TIA), and cerebral infarction without residual deficits; Z82.49 Family history of ischemic heart disease and other diseases of the circulatory system; Z90.11 Acquired absence of right breast and nipple; Z79.82 Long term (current) use of aspirin; Z88.8 Allergy status to other drugs, medicaments and biological substances; Z79.02 Long term (current) use of antithrombotics/antiplatelets; Z79.4 Long term (current) use of insulin; Z90.49 Acquired absence of other specified parts of digestive tract; Z98.51 Tubal ligation status; Z98.890 Other specified postprocedural states
CPT/HCPCS: 99283

== ENCOUNTER 2018-07-09 14:44 | Outpatient (RCR) | payer MEDICARE, OTHER ==
[2018-07-09 15:06] LABS: BASOPHILS # (AUTO) 0.1 10^3/uL (0.0-0.1); BASOPHILS % (AUTO) 0 % (0-10); EOSINOPHILS # (AUTO) 0.2 10^3/uL (0.0-0.3); EOSINOPHILS % (AUTO) 1 % (0-10); HEMATOCRIT 40 % (35-52); HEMOGLOBIN 12.5 G/DL (11.5-16.0); LYMPHOCYTES # (AUTO) 13.1 X 10^3 (1.0-4.0); LYMPHOCYTES % (AUTO) 78 % (12-44); MEAN CORPUSCULAR HEMOGLOBIN 29 PG (25-34); MEAN CORPUSCULAR HGB CONC 31 G/DL (32-36); MEAN CORPUSCULAR VOLUME 94 FL (80-99); MEAN PLATELET VOLUME 11.7 FL (7.4-10.4); MONOCYTES # (AUTO) 0.5 X 10^3 (0.0-1.0); MONOCYTES % (AUTO) 3 % (0-12); NEUTROPHILS # (AUTO) 2.9 X 10^3 (1.8-7.8); NEUTROPHILS % (AUTO) 17 % (42-75); PLATELET COUNT 264 10^3/uL (130-400); RED BLOOD COUNT 4.26 10^6/uL (4.35-5.85); RED CELL DISTRIBUTION WIDTH 14.9 % (10.0-14.5); WHITE BLOOD COUNT 16.7 10^3/uL (4.3-11.0)
[2018-07-09 15:28] LABS: ALANINE AMINOTRANSFERASE 38 U/L (0-55); ALBUMIN 4.4 GM/DL (3.2-4.5); ALKALINE PHOSPHATASE 95 U/L (40-136); BILIRUBIN,TOTAL 0.4 MG/DL (0.1-1.0); BUN/CREATININE RATIO 21; CALCIUM 9.9 MG/DL (8.5-10.1); CARBON DIOXIDE 22 MMOL/L (21-32); CHLORIDE 112 MMOL/L (98-107); CREATININE SERUM 0.82 MG/DL (0.60-1.30); GFR ESTIMATED > 60; GLUCOSE 76 MG/DL (70-105); POTASSIUM 4.2 MMOL/L (3.6-5.0); SODIUM 145 MMOL/L (135-145); TOTAL PROTEIN 7.2 GM/DL (6.4-8.2)
[2018-08-07 10:44] LABS: BASOPHILS % (AUTO) 0 % (0-10); EOSINOPHILS # (AUTO) 0.2 10^3/uL (0.0-0.3); EOSINOPHILS % (AUTO) 1 % (0-10); HEMATOCRIT 39 % (35-52); HEMOGLOBIN 12.4 G/DL (11.5-16.0); LYMPHOCYTES # (AUTO) 8.8 X 10^3 (1.0-4.0); LYMPHOCYTES % (AUTO) 63 % (12-44); MEAN CORPUSCULAR HEMOGLOBIN 29 PG (25-34); MEAN CORPUSCULAR HGB CONC 32 G/DL (32-36); MEAN CORPUSCULAR VOLUME 92 FL (80-99); MEAN PLATELET VOLUME 11.1 FL (7.4-10.4); MONOCYTES # (AUTO) 0.5 X 10^3 (0.0-1.0); MONOCYTES % (AUTO) 3 % (0-12); NEUTROPHILS # (AUTO) 4.5 X 10^3 (1.8-7.8); NEUTROPHILS % (AUTO) 32 % (42-75); PLATELET COUNT 254 10^3/uL (130-400); RED BLOOD COUNT 4.23 10^6/uL (4.35-5.85); RED CELL DISTRIBUTION WIDTH 14.9 % (10.0-14.5); WHITE BLOOD COUNT 13.9 10^3/uL (4.3-11.0)
[2018-08-07 11:01] LABS: ALBUMIN 4.3 GM/DL (3.2-4.5); BILIRUBIN,TOTAL 0.4 MG/DL (0.1-1.0); CALCIUM 9.6 MG/DL (8.5-10.1); CREATININE SERUM 1.02 MG/DL (0.60-1.30); POTASSIUM 4.3 MMOL/L (3.6-5.0)
== END 2018-08-05 | disposition home or self-care (01) ==
LOC: ONC 14:44
PROVIDERS: ATTEND Internal Medicine Hematology & Oncology
DX: C91.10 Chronic lymphocytic leukemia of B-cell type not having achieved remission (principal); E11.9 Type 2 diabetes mellitus without complications; I10 Essential (primary) hypertension; Z79.4 Long term (current) use of insulin; Z79.899 Other long term (current) drug therapy
CPT/HCPCS: 36415; 80053; 83615; 85025; 88305; 88342; 99213

== ENCOUNTER → 2018-08-29 | Outpatient (CLI) | payer MEDICARE ==
--- NOTE | 2018-08-29 16:29 | Diagnostic Imaging Report ---
INDICATION: 68-year-old asymptomatic postmenopausal female. COMPARISON: None available. FINDINGS: AP Spine L1-L4: [BMD (g/cm2): 1.347] [T-Score: 1.2] [Z-Score: 2.1] [BMD Previous: N/A] [BMD % Change: N/A] LT Hip Neck: [BMD (g/cm2): 1.049] [T-Score: 0.1] [Z-Score: 1.2] LT Hip Total: [BMD (g/cm2):0.994] [T-Score:-0.1] [Z-Score: 0.7] [BMD Previous: N/A] [BMD % Change: N/A] RT Hip Neck: [BMD (g/cm2):1.081] [T-Score:0.3] [Z-Score:1.4] RT Hip Total: [BMD (g/cm2):1.006] [T-score:0.0] [Z-Score:0.8] [BMD Previous:N/A] [BMD % Change:N/A] *Indicates significant change from prior examination based on 95% confidence level. World Health Organization criteria for BMD interpretation classify patients as Normal (T-score at or above -1.0), Osteopenic (T-score between -1.0 and -2.5) or Osteoporotic (T-score at or below -2.5). LIMITATIONS AND MODIFICATION: None. FRACTURE RISK (FRAX SCORE): Not applicable due to normal bone mineral density. IMPRESSION: 1. Normal bone mineral density. 2. Baseline examination. 3. See below National Osteoporosis Foundation guidelines on when to potentially initiate pharmacologic therapy. Based on the National Osteoporosis Foundation Guidelines, pharmacologic treatment should be initiated in any of the following, unless clinical conditions suggest otherwise: * Any patient with prior fragility fracture of the hip or vertebrae. A spine fracture indicates 5X risk for subsequent spine fracture and 2X risk for subsequent hip fracture. * Osteoporosis (T-score <-2.5). * Postmenopausal women and men age 50 and older with low bone mass/osteopenia (T-score between -1.0 and -2.5) by DXA and 10-year major osteoporotic fracture greater than 20% or a 10-year probability of hip fracture greater than 3%. These fracture risks are supplied above in the FRAX score, if applicable. * Clinician judgement and/or patient preferences may indicate treatment for people with 10-year fracture probabilities above or below these levels. Dictated by: Dictated on workstation # [id number]
== END ==
LOC: RAD 10:14
PROVIDERS: ATTEND Nurse Practitioner Adult Health
DX: Z13.820 Encounter for screening for osteoporosis (principal); C50.911 Malignant neoplasm of unspecified site of right female breast; Z78.0 Asymptomatic menopausal state
CPT/HCPCS: 77080

== ENCOUNTER → 2018-11-05 | Outpatient (RCR) | payer MEDICARE ==
[2018-08-07 10:44] LABS: BASOPHILS % (AUTO) 0 % (0-10); EOSINOPHILS # (AUTO) 0.2 10^3/uL (0.0-0.3); EOSINOPHILS % (AUTO) 1 % (0-10); HEMATOCRIT 39 % (35-52); HEMOGLOBIN 12.4 G/DL (11.5-16.0); LYMPHOCYTES # (AUTO) 8.8 X 10^3 (1.0-4.0); LYMPHOCYTES % (AUTO) 63 % (12-44); MEAN CORPUSCULAR HEMOGLOBIN 29 PG (25-34); MEAN CORPUSCULAR HGB CONC 32 G/DL (32-36); MEAN CORPUSCULAR VOLUME 92 FL (80-99); MEAN PLATELET VOLUME 11.1 FL (7.4-10.4); MONOCYTES # (AUTO) 0.5 X 10^3 (0.0-1.0); MONOCYTES % (AUTO) 3 % (0-12); NEUTROPHILS # (AUTO) 4.5 X 10^3 (1.8-7.8); NEUTROPHILS % (AUTO) 32 % (42-75); PLATELET COUNT 254 10^3/uL (130-400); RED CELL DISTRIBUTION WIDTH 14.9 % (10.0-14.5); WHITE BLOOD COUNT 13.9 10^3/uL (4.3-11.0)
[2018-08-07 11:01] LABS: ALBUMIN 4.3 GM/DL (3.2-4.5); BILIRUBIN,TOTAL 0.4 MG/DL (0.1-1.0); CALCIUM 9.6 MG/DL (8.5-10.1); CREATININE SERUM 1.02 MG/DL (0.60-1.30); POTASSIUM 4.3 MMOL/L (3.6-5.0)
[2018-11-05 09:20] LABS: BASOPHILS # (AUTO) 0.1 10^3/uL (0.0-0.1); BASOPHILS % (AUTO) 0 % (0-10); EOSINOPHILS # (AUTO) 0.2 10^3/uL (0.0-0.3); EOSINOPHILS % (AUTO) 1 % (0-10); HEMATOCRIT 41 % (35-52); HEMOGLOBIN 13.2 G/DL (11.5-16.0); LYMPHOCYTES # (AUTO) 13.3 X 10^3 (1.0-4.0); LYMPHOCYTES % (AUTO) 77 % (12-44); MEAN CORPUSCULAR HEMOGLOBIN 30 PG (25-34); MEAN CORPUSCULAR HGB CONC 32 G/DL (32-36); MEAN CORPUSCULAR VOLUME 93 FL (80-99); MONOCYTES # (AUTO) 0.4 X 10^3 (0.0-1.0); MONOCYTES % (AUTO) 3 % (0-12); NEUTROPHILS # (AUTO) 3.3 X 10^3 (1.8-7.8); NEUTROPHILS % (AUTO) 19 % (42-75); PLATELET COUNT 201 10^3/uL (130-400); RED CELL DISTRIBUTION WIDTH 15.4 % (10.0-14.5); WHITE BLOOD COUNT 17.3 10^3/uL (4.3-11.0)
[2018-11-05 09:37] LABS: ALBUMIN 4.4 GM/DL (3.2-4.5); BILIRUBIN,TOTAL 0.4 MG/DL (0.1-1.0); CREATININE SERUM 1.14 MG/DL (0.60-1.30); POTASSIUM 4.7 MMOL/L (3.6-5.0); TOTAL PROTEIN 7.2 GM/DL (6.4-8.2)
== END | disposition home or self-care (01) ==
LOC: ONC 08-07 10:29
PROVIDERS: ATTEND Internal Medicine Hematology & Oncology
DX: C91.10 Chronic lymphocytic leukemia of B-cell type not having achieved remission (principal); E11.9 Type 2 diabetes mellitus without complications; I10 Essential (primary) hypertension; Z79.4 Long term (current) use of insulin; Z79.899 Other long term (current) drug therapy
CPT/HCPCS: 36415; 80053; 83615; 85025; 99213

== ENCOUNTER 2019-01-07 21:09 | Emergency (ER) | payer MEDICARE ==
[~2019-01-07] VITALS: Ht 162.6 cm; Wt 86.2 kg
[2019-01-07] MEDS ORDERED: fentaNYL INJECTION 100 MCG/2 ML AMP IVP ONE ×2 (21:30→23:00)
--- NOTE | 2019-01-07 22:08 | Diagnostic Imaging Report ---
PROCEDURE: CT urinary tract, rule out kidney stone. TECHNIQUE: Multiple contiguous axial images were obtained through the abdomen and pelvis without the use of intravenous contrast. Auto Exposure Controls were utilized during the CT exam to meet ALARA standards for radiation dose reduction. INDICATION: Back and left hip pain. Comparison with 05/14/2018. The lung bases are clear. Liver appears normal. Gallbladder is absent. Bile ducts are not dilated. Pancreas and spleen appear normal. The adrenal glands are normal. The kidneys are normal. Aorta is very densely calcified without evidence of aneurysm. The stomach is filled with food and fluid. No evidence of hiatal hernia. The small bowel is not distended. The appendix is normal. The colon shows normal stool and gas pattern. There is gas and stool to the rectum without evidence of obstruction. No findings to indicate diverticulitis. There is no free air or free fluid. No intra-abdominal adenopathy. Sagittal reformatted images show good alignment of the lumbosacral spine. Moderate degenerative changes are noted. No acute abnormalities. There is advanced degenerative change of the SI joints with bony spondylosis. No evidence of sacral fractures. Femoral heads are in normal articulation bilaterally with degenerative changes. There are no blastic or destructive bony lesions demonstrated. IMPRESSION: 1. Marked degenerative changes of the lumbosacral spine as well as the SI joints. No destructive bony changes are demonstrated. 2. Bowel gas pattern appears normal throughout without evidence of appendicitis or diverticulitis. 3. Atherosclerotic changes of the aorta without aneurysm. Dictated by: Dictated on workstation # [id number]
--- NOTE | 2019-01-07 22:17 | NUR ---
pt is still in severe pain with tears. Provider notified. Pt unable to lay on back
[2019-01-07 22:28] LABS: BASOPHILS # (AUTO) 0.1 10^3/uL (0.0-0.1); BASOPHILS % (AUTO) 0 % (0-10); EOSINOPHILS # (AUTO) 0.1 10^3/uL (0.0-0.3); EOSINOPHILS % (AUTO) 1 % (0-10); HEMATOCRIT 39 % (35-52); HEMOGLOBIN 12.6 G/DL (11.5-16.0); LYMPHOCYTES # (AUTO) 12.4 X 10^3 (1.0-4.0); LYMPHOCYTES % (AUTO) 77 % (12-44); MEAN CORPUSCULAR HEMOGLOBIN 30 PG (25-34); MEAN CORPUSCULAR HGB CONC 32 G/DL (32-36); MEAN CORPUSCULAR VOLUME 93 FL (80-99); MEAN PLATELET VOLUME 12.3 FL (7.4-10.4); MONOCYTES # (AUTO) 0.5 X 10^3 (0.0-1.0); MONOCYTES % (AUTO) 3 % (0-12); NEUTROPHILS % (AUTO) 19 % (42-75); PLATELET COUNT 171 10^3/uL (130-400); RED CELL DISTRIBUTION WIDTH 14.5 % (10.0-14.5); WHITE BLOOD COUNT 16.1 10^3/uL (4.3-11.0)
[2019-01-07 22:44] LABS: BILIRUBIN,URINE NEGATIVE (NEGATIVE); CLARITY,URINE CLEAR; COLOR,URINE YELLOW; GLUCOSE, URINE (UA) 4+ (NEGATIVE); KETONES,URINE NEGATIVE (NEGATIVE); LEUKOCYTE ESTERASE ,URINE NEGATIVE (NEGATIVE); NITRITE,URINE NEGATIVE (NEGATIVE); PH,URINE 6 (5-9); PROTEIN,URINE 1+ (NEGATIVE); UROBILINOGEN,URINE NORMAL (NORMAL)
[2019-01-07 22:44] LABS: PROTHROMBIN TIME PATIENT 13.2 SEC (12.2-14.7)
[2019-01-07 22:52] LABS: BAND NEUTROPHILS 1 %; LYMPHOCYTES % (MANUAL) 68 %; MONOCYTES % (MANUAL) 7 %; NEUTROPHILS % (MANUAL) 24 %; RBC MORPH NORMAL
[2019-01-07 22:54] LABS: ALBUMIN 4.4 GM/DL (3.2-4.5); BILIRUBIN,TOTAL 0.4 MG/DL (0.1-1.0); CALCIUM 9.6 MG/DL (8.5-10.1); CREATININE SERUM 0.99 MG/DL (0.60-1.30); MAGNESIUM 2.1 MG/DL (1.8-2.4); POTASSIUM 4.1 MMOL/L (3.6-5.0); TOTAL PROTEIN 6.9 GM/DL (6.4-8.2)
[2019-01-07 22:57] LABS: BACTERIA,URINE NEGATIVE /HPF; SQUAMOUS EPITHELIAL CELL,UR 0-2 /HPF
[2019-01-07] MEDS ORDERED: methylPREDNISolone 125 MG (Solu-MEDROL) VIAL IVP ONE (23:00)
--- NOTE | 2019-01-07 23:07 | ED Back Pain ---
General Chief Complaint: Back Problems Stated Complaint: BACK PAIN Nursing Triage Note: PT HAS BEEN SLEEPING ON A COUCH FOR 15 DAYS BECAUSE HER ELECTRIC IS OFF AND SHE IS STAYING WITH HER DAUGHTER. LAST SUNDAY SHE WENT TO THE DOCTOR AND WAS PUT ON A MUSCLE RELAXER. PT WENT BACK TODAY AND THEY TOOK XRAYS BUT DON'T KNOW RESULTS. PT IN TEARS. PAIN RADIATES THROUGH HIP DOWN RIGHT LEG Nursing Sepsis Screen: No Definite Risk Allergies and Home Medications Allergies Coded Allergies: naproxen (Verified Allergy, Mild, KIDNEY ISSUES, 05/27/18) Home Medications Aspirin 81 Mg Tab.chew, 81 MG PO DAILY, (Reported) Atorvastatin Calcium 40 Mg Tablet, 40 MG PO HS, (Reported) Bethanechol Chloride 25 Mg Tablet, 25 MG PO ACHS Prescribed by: HOLLIS PAZ on 06/03/18 1314 Clopidogrel Bisulfate 75 Mg Tablet, 75 MG PO DAILY, (Reported) Dapagliflozin Propanediol 10 Mg Tablet, 10 MG PO DAILY, (Reported) Glimepiride 2 Mg Tablet, 2 MG PO BID, (Reported) Hydrocodone Bit/Acetaminophen 1 Tab Tab, 1 TAB PO Q6H PRN for PAIN-MODERATE Prescribed by: CHITO HERNANDEZ on 06/03/18 1133 Insulin Aspart 300 Units/3 Ml Solution, 30 UNITS SQ TIDAC, (Reported) Insulin Detemir 100 Unit/1 Ml Insuln.pen, 45 UNIT SQ BID, (Reported) Lisinopril 40 Mg Tablet, 40 MG PO DAILY, (Reported) Methocarbamol 500 Mg Tablet, 500 MG PO QID Prescribed by: JAMIE GAMBLE on 01/07/192307 Metoprolol Succinate 25 Mg Tab.er.24h, 12.5 MG PO BID, (Reported) TAKE 1/2 OF 25MG TAB Tramadol HCl 50 Mg Tablet, 50 MG PO Q4H PRN for PAIN-MODERATE Prescribed by: JAMIE GAMBLE on 01/07/192307 Past Ulpfnhs-Lohgdy-Upvzow Hx Patient Social History Alcohol Use: Denies Use Recreational Drug Use: No 2nd Hand Smoke Exposure: No Recent Foreign Travel: No Contact w/Someone Who Travel: No Recent Infectious Disease Expo: Yes Recent Hopitalizations: Yes (06/02/18-JADYN AND RIGHT MASECTOMY) Immunizations Up To Date Tetanus Booster (TDap): Less than 5yrs Date of Pneumonia Vaccine: May 06, 2013 Date of Influenza Vaccine: May 30, 2018 Seasonal Allergies Seasonal Allergies: No Past Medical History Surgeries: Yes ( D&C, R AXILLA LUMP) Breast, 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 Respiratory: No Cardiac: Yes High Cholesterol, Hypertension Neurological: Yes Stroke Reproductive Disorders: No [employer] History: 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 Sexually Transmitted Disease: No HIV/AIDS: No Genitourinary: No Renal Failure Gastrointestinal: No Gastroesophageal Reflux Musculoskeletal: Yes Arthritis Endocrine: Yes Diabetes, Insulin dep HEENT: No Loss of Vision: Denies Hearing Impairment: Denies Cancer: Yes Leukemia, Breast Psychosocial: No Integumentary: No Blood Disorders: No Adverse Reaction/Blood Tranf: No (N/A) Family Medical History Abdominal aortic aneurysm Alzheimer's disease Arthritis Cardiovascular disease Cataracts Completed stroke Dementia Diabetes mellitus Hypercholesterolemia Hypertension Myocardial infarction Neoplasm Psychosocial problem Thyroid disease Physical Exam Vital Signs Vital Signs - First Documented 01/07/19 21:19 Temp 98.9 Pulse 80 Resp 18 B/P (MAP) 190/79 (116) Pulse Ox 97 O2 Delivery Room Air Capillary Refill : Less Than 3 Seconds Height, Weight, BMI Height: 5'4.00" Weight: 190lbs. 8.0oz. [id number]; 34.9 BMI Method:Stated Progress/Results/Core Measures Results/Orders Lab Results Laboratory Tests Test 01/07/19 10:20 01/07/19 22:29 Range/Units White Blood Count 16.1 H 4.3-11.0 10^3/uL Red Blood Count 4.21 L 4.35-5.85 10^6/uL Hemoglobin 12.6 11.5-16.0 G/DL Hematocrit 39 35-52 % Mean Corpuscular Volume 93 80-99 FL Mean Corpuscular Hemoglobin 30 25-34 PG Mean Corpuscular Hemoglobin Concent 32 32-36 G/DL Red Cell Distribution Width 14.5 10.0-14.5 % Platelet Count 171 130-400 10^3/uL Mean Platelet Volume 12.3 H 7.4-10.4 FL Neutrophils (%) (Auto) 19 L 42-75 % Lymphocytes (%) (Auto) 77 H 12-44 % Monocytes (%) (Auto) 3 0-12 % Eosinophils (%) (Auto) 1 0-10 % Basophils (%) (Auto) 0 0-10 % Neutrophils # (Auto) 3.0 1.8-7.8 X 10^3 Lymphocytes # (Auto) 12.4 H 1.0-4.0 X 10^3 Monocytes # (Auto) 0.5 0.0-1.0 X 10^3 Eosinophils # (Auto) 0.1 0.0-0.3 10^3/uL Basophils # (Auto) 0.1 0.0-0.1 10^3/uL Neutrophils % (Manual) 24 % Lymphocytes % (Manual) 68 % Monocytes % (Manual) 7 % Band Neutrophils 1 % Blood Morphology Comment NORMAL Prothrombin Time 13.2 12.2-14.7 SEC INR Comment 1.0 0.8-1.4 Activated Partial Thromboplast Time 30 24-35 SEC Sodium Level 142 135-145 MMOL/L Potassium Level 4.1 3.6-5.0 MMOL/L Chloride Level 107 98-107 MMOL/L Carbon Dioxide Level 24 21-32 MMOL/L Anion Gap 11 5-14 MMOL/L Blood Urea Nitrogen 20 H 7-18 MG/DL Creatinine 0.99 0.60-1.30 MG/DL Estimat Glomerular Filtration Rate 56 BUN/Creatinine Ratio 20 Glucose Level 177 H 70-105 MG/DL Calcium Level 9.6 8.5-10.1 MG/DL Corrected Calcium 9.3 8.5-10.1 MG/DL Magnesium Level 2.1 1.8-2.4 MG/DL Total Bilirubin 0.4 0.1-1.0 MG/DL Aspartate Amino Transf (AST/SGOT) 18 5-34 U/L Alanine Aminotransferase (ALT/SGPT) 24 0-55 U/L Alkaline Phosphatase 91 40-136 U/L Total Protein 6.9 6.4-8.2 GM/DL Albumin 4.4 3.2-4.5 GM/DL Amylase Level 57 25-125 U/L Lipase 20 8-78 U/L Urine Color YELLOW Urine Clarity CLEAR Urine pH 6 5-9 Urine Specific [place] 1.015 L 1.016-1.022 Urine Protein 1+ H NEGATIVE Urine Glucose (UA) 4+ H NEGATIVE Urine Ketones NEGATIVE NEGATIVE Urine Nitrite NEGATIVE NEGATIVE Urine Bilirubin NEGATIVE NEGATIVE Urine Urobilinogen NORMAL NORMAL MG/DL Urine Leukocyte Esterase NEGATIVE NEGATIVE Urine RBC (Auto) NEGATIVE NEGATIVE Urine RBC NONE /HPF Urine WBC NONE /HPF Urine Squamous Epithelial Cells 0-2 /HPF Urine Crystals NONE /LPF Urine Bacteria NEGATIVE /HPF Urine Casts NONE /LPF Urine Mucus NEGATIVE /LPF Urine Culture Indicated NO My Orders Orders - JAMIE GAMBLE DO Ua Culture If Indicated (01/07/19 21:16) Ed Iv/Invasive Line Start (01/07/19 21:30) Straight Cath For Spec.-Adult (01/07/19 21:30) Ct Lumbar Spine Wo (01/07/19 21:30) Pelvis With Left Hip 2-3 Views (01/07/19 21:30) Amylase (01/07/19 21:30) Cbc With Automated Diff (01/07/19 21:30) Comprehensive Metabolic Panel (01/07/19 21:30) Lipase (01/07/19 21:30) Magnesium (01/07/19 21:30) Protime With Inr (01/07/19 21:30) Partial Thromboplastin Time (01/07/19 21:30) Ct Abd/Pelvis Wo(Kidney Stone) (01/07/19 21:30) Fentanyl Injection (Sublimaze Injection (01/07/19 21:30) Manual Differential (01/07/19 10:20) Methylprednisolone Sod Succ (Solu-Medrol (01/07/19 23:00) Fentanyl Injection (Sublimaze Injection (01/07/19 23:00) Rx-Tramadol Hcl (Rx-Ultram) (01/07/19 23:09) Methocarbamol Tablet (Robaxin Tablet) (01/07/19 23:15) Medications Given in ED Current Medications Medications Dose Ordered Sig/Sherrie Route Start Time Stop Time Status Last Admin Dose Admin Fentanyl Citrate 50 mcg ONCE ONCE IVP 01/07/19 21:30 01/07/19 21:33 DC 01/07/19 22:23 50 MCG Fentanyl Citrate 50 mcg ONCE ONCE IVP 01/07/19 23:00 01/07/19 23:01 DC 01/07/19 23:07 50 MCG Methocarbamol 500 mg ONCE ONCE PO 01/07/19 23:15 01/07/19 23:16 DC 01/07/19 23:31 500 MG Methylprednisolone Sodium Succinate 125 mg ONCE ONCE IVP 01/07/19 23:00 01/07/19 23:01 DC 01/07/19 23:06 125 MG Vital Signs/I&O 01/07/19 21:19 Temp 98.9 Pulse 80 Resp 18 B/P (MAP) 190/79 (116) Pulse Ox 97 O2 Delivery Room Air Blood Pressure Mean: 116 Departure Impression Primary Impression: Left-sided low back pain without sciatica Additional Impression: DEGENERATIVE CHANGES OF LUMBAR SPINE AND SI JOINTS Disposition: 01 HOME, SELF-CARE Condition: Stable Departure-Patient Inst. Referrals: [facility] (PCP/Family) Primary Care Physician Patient Instructions: Low Back Pain (DC), Sacroiliac Joint Pain (DC) Add. Discharge Instructions: MOIST HEAT TO SORE AREAS AT 20 MINUTE INTERVALS SLOW POSITION CHANGES FOLLOW UP WITH YOUR DR THIS WEEK FOR FURTHER CARE All discharge instructions reviewed with patient and/or family. Voiced understanding. Scripts Methocarbamol (Robaxin) 500 Mg Tablet 500 MG PO QID for Muscle Spasms, #20 TAB Prov: JAMEI GAMBLE DO 01/07/19 Tramadol HCl (Ultram) 50 Mg Tablet 50 MG PO Q4H PRN for PAIN-MODERATE for 3 Days, TAB Prov: JAMIE GAMBLE DO 01/07/19 JAMIE GAMBLE DO Jan 07, 2019 23:07
[2019-01-07] MEDS ORDERED: TRAM-42 PO (23:08)
[2019-01-07] MEDS ORDERED: METH500T PO ×2 (23:08→23:36)
[2019-01-07] MEDS ORDERED: RX-TRAMADOL 50 MG (ULTRAM) TAB PPK#4 PO STA (23:09)
[2019-01-07] MEDS ORDERED: METHOCARBAMOL 500 MG (ROBAXIN) TABLET PO ONE (23:15)
[2019-01-07 23:44] VITALS: BP 150/73
--- NOTE | 2019-01-08 00:31 | Diagnostic Imaging Report ---
INDICATION: Pelvic and left hip pain. TECHNIQUE: AP pelvis and AP and oblique views of left hip are obtained and compared to 08/23/2017. FINDINGS: No fracture or acute bony abnormality is seen. There is moderate degenerative change of both hips with joint space narrowing and osteophyte formation. There is osteophyte formation of the greater trochanters on both sides. There is degenerative change of the SI joints on both sides. IMPRESSION: Degenerative findings as described above with no acute abnormality. Dictated by: Dictated on workstation # [id number]
--- OUTSIDE RECORDS SUMMARY | 2019-01-08 01:43 | XMS REPORT ---
Author Author Migration, Doctor Organization [facility] Address Unknown Phone Unavailable Care Team Providers Care Optician Apprentice Name Role Phone Migration, Doctor Unavailable Unavailable PROBLEMS Type Condition ICD9-CM Code PAQ32-FL Code Onset Dates Condition Status SNOMED Code Problem History of CVA (cerebrovascular accident) Z86.73 Active 573599297 Problem Type 2 diabetes mellitus with diabetic neuropathy E11.40 Active 28473164 Problem Mixed hyperlipidemia E78.2 Active 809202034 Problem 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 Active 90135519 Problem History of renal failure Z87.448 Active 761785145 Problem 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, unspecified estrogen receptor status, unspecified site of breast C50.911 Active 077919265 Problem shelter current use of insulin Z79.4 Active 358055640 Problem Hemiplegia and hemiparesis following cerebral infarction affecting left non-dominant side I69.354 Active 712077071 Problem Essential hypertension I10 Active 08295448 Problem Osteoarthritis of right knee M17.9 Active 642516404 Problem Chronic idiopathic constipation K59.04 Active 29951988 Problem Other obesity due to excess calories E66.09 Active 731263526 Problem Constipation K59.00 Active [id number] ALLERGIES No Information ENCOUNTERS Encounter Location Date Diagnosis [place] [id number] [place] [address] Mar, [address] [address] December, [address] [address] December, [facility] [id number] [place] [address] December, Type 2 diabetes mellitus with diabetic neuropathy E11.40 ; Mixed hyperlipidemia E78.2 ; Hemiplegia and hemiparesis following cerebral infarction affecting left non-dominant side I69.354 ; Essential hypertension I10 and termite helper current use of insulin Z79.4 [facility] [address] [address] December, [facility] [address] [place] [id number] [place] [address] December, Type 2 diabetes mellitus with diabetic neuropathy E11.40 [facility] [address] [address] December, Type 2 diabetes mellitus with diabetic neuropathy E11.40 [facility] [id number] [address] Nov, [facility] [id number] [place] [address] Nov, Acute bronchitis, unspecified organism J20.9 [facility] [address] [address] Nov, Encounter for Medicare annual wellness exam Z00.00 and 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, unspecified estrogen receptor status, unspecified site of breast C50.911 [facility] [address] [address] Oct, [facility] [address] [id number] [place] [address] Oct, [facility] [address] [address] Oct, [facility] [address] [address] Oct, [facility] [address] [address] Sep, History of CVA (cerebrovascular accident) Z86.73 ; Essential hypertension I10 and Type 2 diabetes mellitus with diabetic neuropathy E11.40 [facility] [address] [address] 14 Sep, 2018 [facility] [id number] [place] [address] Sep, Type 2 diabetes mellitus with diabetic neuropathy E11.40 ; Encounter for immunization Z23 ; History of CVA (cerebrovascular accident) Z86.73 and Essential hypertension I10 [facility] [id number] [place] [address] 24 Aug, 2018 Essential hypertension I10 [facility] [address] [address] 15 Aug, 2018 [facility] [address] [address] 14 Aug, 2018 [facility] [address] [address] 09 Aug, 2018 Abdominal pain R10.9 and Constipation K59.00 [facility] [address] [address] Jul, [facility] [address] [address] Jul, [facility] [address] [address] Jun, [facility] [address] [address] Jun, Essential hypertension I10 [facility] [address] [address] Jun, Type 2 diabetes mellitus with diabetic neuropathy E11.40 and Mixed hyperlipidemia E78.2 [facility] [id number] [place] [address] Jun, Type 2 diabetes mellitus with diabetic neuropathy E11.40 ; Mixed hyperlipidemia E78.2 and Essential hypertension I10 [facility] [address] [address] May, [facility] [address] [address] May, [facility] [address] [place] [address] Mar, Essential hypertension I10 and Type 2 diabetes mellitus with diabetic neuropathy E11.40 [facility] [id number] [place] [address] Mar, [facility] [id number] [place] [address] Mar, Essential hypertension I10 [facility] [id number] [place] [address] Mar, Type 2 diabetes mellitus with diabetic neuropathy E11.40 [facility] [address] [place] [id number] Feb, Dental caries K02.9 [facility] [id number] [place] [address] Feb, [facility] [id number] [place] [address] Feb, Type 2 diabetes mellitus with diabetic neuropathy E11.40 ; Essential hypertension I10 ; Mixed hyperlipidemia E78.2 ; History of CVA (cerebrovascular accident) Z86.73 ; Other obesity due to excess calories E66.09 and Body mass index (BMI) of 31.0-31.9 in adult Z68.31 [facility] [address] [place] [phone] Jan, Dental examination Z01.20 [facility] [address], [place] [address] Jan, Type 2 diabetes mellitus with diabetic neuropathy E11.40 [facility] [address] [id number] Nov, Dental caries K02.9 [facility] [address], [place] [address] Nov, Type 2 diabetes mellitus with diabetic neuropathy E11.40 [facility] [address] [place] [address] Nov, Medicare annual wellness visit, initial Z00.00 ; Type 2 diabetes mellitus with diabetic neuropathy E11.40 ; termite helper current use of insulin Z79.4 ; 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 ; Essential hypertension I10 ; Mixed hyperlipidemia E78.2 ; History of CVA (cerebrovascular accident) Z86.73 ; History of renal failure Z87.448 ; Osteoarthritis of right knee M17.9 and Encounter for immunization Z23 [facility] [address] [place] [id number] Nov, 2017 Dental examination Z01.20 [facility] [address] [address] Oct, Type 2 diabetes mellitus with diabetic neuropathy E11.40 ; shelter current use of insulin Z79.4 ; 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 ; History of renal failure Z87.448 ; Mild single current episode of major depressive disorder F32.0 ; Essential hypertension I10 ; Mixed hyperlipidemia E78.2 and Chronic idiopathic constipation K59.04 [facility] [id number] [place] [address] 15 Oct, 2017 Type 2 diabetes mellitus with diabetic neuropathy E11.40 ; Dental caries extending into pulp K02.9 ; Nausea and vomiting, intractability of vomiting not specified, unspecified vomiting type R11.2 and Chronic idiopathic constipation K59.04 [facility] [id number] [place] [address] Oct, Type 2 diabetes mellitus with diabetic neuropathy E11.40 [facility] [id number] [place] [address] Aug, [facility] [address] [id number] [place] [address] Jul, Type 2 diabetes mellitus with diabetic neuropathy E11.40 [facility] [id number] [place] [address] Jul, Muscle spasm of back M62.830 [facility] [address] [address] Jun, Type 2 diabetes mellitus with diabetic neuropathy E11.40 ; termite helper current use of insulin Z79.4 ; [facility] C92.11 ; History of renal failure Z87.448 and Mild single current episode of major depressive disorder F32.0 [facility] [address] [place] [address] Mar, Type 2 diabetes mellitus with diabetic neuropathy E11.40 ; shelter current use of insulin Z79.4 ; Chronic myeloid leukemia in [facility] C92.11 ; History of renal failure Z87.448 ; Mild single current episode of major depressive disorder F32.0 ; Pain in right knee M25.561 and Encounter for immunization Z23 [place] [address] [place] [address] [id number] [place] [address] Feb, Bloody discharge from right nipple N64.52 [place] [address] [address] Feb, [facility] [id number] [place] [address] Feb, [facility] [id number] [place] [address] December, Type 2 diabetes mellitus with diabetic neuropathy E11.40 [facility] [id number] [place] [address] December, Type 2 diabetes mellitus with diabetic neuropathy E11.40 ; shelter current use of insulin Z79.4 ; Chronic myeloid leukemia in [facility] C92.11 ; History of renal failure Z87.448 ; Mild single current episode of major depressive disorder F32.0 and Pain in right knee M25.561 [facility] [id number] [place] [address] Nov, Type 2 diabetes mellitus with diabetic neuropathy E11.40 ; shelter current use of insulin Z79.4 ; [facility] C92.11 ; History of renal failure Z87.448 ; Mild single current episode of major depressive disorder F32.0 and Pain in right knee M25.561 [facility] [address] [id number] [address] 16 Sep, 2016 Osteoarthritis of right knee M17.9 [facility] [address] [place] [address] 08 Sep, 2016 Type 2 diabetes mellitus with diabetic neuropathy E11.40 ; shelter current use of insulin Z79.4 ; Chronic myeloid leukemia in [facility] C92.11 ; History of renal failure Z87.448 ; Mild single current episode of major depressive disorder F32.0 and Pain in right knee M25.561 [facility] [address], [place] [address] Aug, Type 2 diabetes mellitus with diabetic neuropathy E11.40 [place] [address] [place] [address] Jul, Type 2 diabetes mellitus with diabetic neuropathy E11.40 ; termite helper current use of insulin Z79.4 ; Chronic myeloid leukemia in [place] 397972.11 ; History of renal failure Z87.448 and Mild single current episode of major depressive disorder F32.0 [place] [id number] [place] [address] Jun, [place] [id number] [place] [address] May, Type 2 diabetes mellitus with diabetic neuropathy E11.40 [facility] [address], [place] [address] May, Tendonitis M77.9 [facility] [address] [place] [address] 04 May, 2016 Type 2 diabetes mellitus with diabetic neuropathy E11.40 ; shelter current use of insulin Z79.4 ; Chronic myeloid leukemia in [place] 397972.11 ; History of renal failure Z87.448 and Mild single current episode of major depressive disorder F32.0 [facility] [address], [place] [address] Apr, Type 2 diabetes mellitus with diabetic neuropathy E11.40 [place] [address] [place] [address] 14 Apr, 2016 Type 2 diabetes mellitus with diabetic neuropathy E11.40 ; shelter current use of insulin Z79.4 ; Chronic myeloid leukemia in [facility] C92.11 ; History of renal failure Z87.448 ; Mild single current episode of major depressive disorder F32.0 and Right foot pain M79.671 [place] [address] [id number] [place] [address] Feb, History of renal failure Z87.448 [place] [address] [id number] [place] [address] Feb, Type 2 diabetes mellitus with diabetic neuropathy E11.40 ; termite helper current use of insulin Z79.4 ; Chronic myeloid leukemia in [place] 397972.11 ; History of renal failure Z87.448 and Mild single current episode of major depressive disorder F32.0 [place] [address] [id number] [place] [address] Feb, 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 [place] [address] [address] [id number] [place] [address] Feb, Type 2 diabetes mellitus with diabetic neuropathy E11.40 ; shelter current use of insulin Z79.4 ; Chronic myeloid leukemia in [facility] C92.11 ; Essential hypertension I10 ; Mixed hyperlipidemia E78.2 ; History of CVA (cerebrovascular accident) Z86.73 ; History of renal failure Z87.448 and Mild single current episode of major depressive disorder F32.0 [place] [address] [place] [address] Jan, Type 2 diabetes mellitus with diabetic neuropathy E11.40 ; shelter current use of insulin Z79.4 ; Chronic myeloid leukemia in [facility] C92.11 ; Essential hypertension I10 ; Mixed hyperlipidemia E78.2 ; History of CVA (cerebrovascular accident) Z86.73 and History of renal failure Z87.448 [place] [address] [place] [id number] [place] [address] Jan, [facility] [address] [place] [address] Jan, Cellulitis of hand, left L03.114 [place] [address] [place] [id number] [place] [address] Nov, Osteoarthritis of right knee M17.9 [place] [address] [place] [id number] [place] [address] Sep, Type 2 diabetes mellitus with diabetic neuropathy E11.40 ; shelter current use of insulin Z79.4 ; 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 ; Essential hypertension I10 ; Mixed hyperlipidemia E78.2 and History of CVA (cerebrovascular accident) Z86.73 [place] [address] [place] [id number] [place] [address] Aug, Osteoarthritis of right knee M17.9 [place] [address] [id number] [place] [address] Aug, Pain in right knee M25.561 [place] [address] [id number] [place] [address] Jul, [place] [address] [id number] [place] [address] Jun, [place] [address] [id number] [place] [address] Jun, Axillary lump, right R22.31 [place] [id number] [place] [address] 04 Jun, 2015 Type 2 diabetes mellitus with diabetic neuropathy E11.40 ; Encounter for immunization Z23 ; termite helper current use of insulin Z79.4 ; 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 ; Essential hypertension I10 ; Mixed hyperlipidemia E78.2 ; History of CVA (cerebrovascular accident) Z86.73 and Axillary lump, right R22.31 [place] [address] [place] [id number] [place] [address] Mar, Hyperlipidemia 272.4 [facility] [address], [place] [address] Mar, Right knee pain 719.46 [facility] [id number] [place] [address] Mar, Rotator cuff impingement syndrome of left shoulder 726.10 [facility] [id number] [place] [address] Feb, [facility] [id number] [place] [address] Feb, Chronic myeloid leukemia, without mention of having achieved remission 205.10 ; Essential hypertension, malignant 401.0 ; Unspecified hereditary and idiopathic peripheral neuropathy 356.9 ; Diabetes mellitus type 2, controlled, with complications 250.90 ; Hyperlipidemia 272.4 and Pain, joint, shoulder, left 719.41 [facility] [id number] [place] [address] Jan, [facility] [id number] [place] [address] Nov, [facility] [id number] [place] [address] Nov, [facility] [id number] [place] [address] Oct, [facility] [address] [place] [address] Oct, [facility] [id number] [place] [address] Oct, [facility] [id number] [place] [address] Oct, [facility] [address], [place] [address] Oct, [facility] [id number] [place] [address] Oct, [facility] [place] [facility] [address] [id number] [place] [address] Sep, [facility] [place] [facility] [address] [id number] [place] [address] Sep, [facility] [place] [facility] [address] [id number] [place] [address] Aug, [facility] [place] [facility] [address] [id number] [place] [address] Aug, [facility] [place] [facility] [address] [id number] [place] [address] Jul, [facility] [place] [facility] [address] [id number] [place] [address] Jul, [facility] [place] [facility] [address] [id number] [place] [address] Jul, [facility] [place] [facility] [address] [id number] [place] [address] Jul, [facility] [place] [facility] [address] [id number] [place] [address] Jul, [facility] [place] [facility] [address] [id number] [place] [address] Jul, [facility] [place] [facility] [address] [id number] [place] [address] Jul, [facility] [place] [facility] [address] [id number] [place] [address] Jul, [facility] [place] [facility] [address] [id number] [place] [address] Jul, [facility] [place] [facility] [address] [id number] [place] [address] May, [facility] [place] [facility] [address] [id number] [place] [address] May, [facility] [place] [facility] [address] [id number] [place] [address] 29 Apr, 2014 [facility] [place] [facility] [address] [id number] [place] [address] Apr, [facility] [place] [facility] [address] [id number] [place] [address] Apr, [facility] [place] [facility] [address] [id number] [place] [address] Apr, [facility] [place] [facility] [address] [id number] [place] [address] Feb, [facility] [place] [facility] [address] [id number] [place] [address] Feb, [facility] [place] [facility] [address] [id number] [place] [address] Feb, [facility] [place] [facility] [address] [id number] [place] [address] Feb, [facility] [place] [facility] [address] [id number] [place] [address] Jan, [facility] [place] [facility] [address] [id number] [place] [address] Jan, [facility] [place] [facility] [address] [id number] [place] [address] Jan, [facility] [place] [facility] [address] [id number] [place] [address] Jan, [facility] [place] [facility] [address] [id number] [place] [address] Jan, [facility] [place] [facility] [address] [id number] [place] [address] Jan, [facility] [place] [facility] [address] [id number] [place] [address] December, [facility] [place] [facility] [address] [id number] [place] [address] December, [facility] [place] [facility] [address] [id number] [place] [address] December, [facility] [place] [facility] [address] [id number] [place] [address] December, [facility] [place] [facility] [address] [id number] [place] [address] Nov, [facility] [place] [facility] [address] [id number] [place] [address] Nov, [facility] [place] [facility] [address] [id number] [place] [address] Nov, [facility] [place] [facility] [address] [id number] [place] [address] Nov, [facility] [place] [facility] [address] [id number] [place] [address] Oct, [facility] [place] [facility] [address] [id number] [place] [address] Oct, [facility] [place] [facility] [address] [id number] [place] [address] Oct, [facility] [place] [facility] [address] [id number] [place] [address] Oct, [facility] [place] [facility] [address] [id number] [place] [address] Oct, [facility] [place] [facility] [address] [id number] [place] [address] Oct, [facility] [place] [facility] [address] [id number] [place] [address] Sep, [facility] [place] [facility] [address] [id number] [place] [address] Sep, [facility] [place] [facility] [address] [id number] [place] [address] Sep, [facility] [place] [facility] [address] [id number] [place] [address] Sep, [facility] [address] [id number] [place] [address] Aug, [facility] [place] [facility] [address] [id number] [place] [address] Aug, [facility] [place] [facility] [address] [id number] [place] [address] Aug, [facility] [place] [facility] [address] [id number] [place] [address] Aug, [facility] [place] [facility] [address] [id number] [place] [address] Aug, [facility] [place] [facility] [address] [id number] [place] [address] Aug, [facility] [address] [id number] [place] [address] Jul, [facility] [place] [facility] [address] [id number] [place] [address] Jul, [facility] [place] [facility] [address] [id number] [place] [address] Jul, [facility] [place] [facility] [address] [id number] [place] [address] Jul, [facility] [place] [facility] [address] [id number] [place] [address] Jun, [facility] [place] [facility] [address] [id number] [place] [address] Jun, [facility] [place] [facility] [address] [id number] [place] [address] May, [facility] [place] [facility] [address] [id number] [place] [address] 16 Feb, 2013 [facility] [place] [facility] [address] [id number] [place] [address] Feb, [facility] [place] [facility] [address] [id number] [place] [address] Feb, [facility] [address] [id number] [place] [address] Jan, [facility] [address] [id number] [place] [address] Jan, [facility] [address] [id number] [place] [address] Jan, [facility] [address] [id number] [place] [address] December, [facility] [address] [id number] [place] [address] December[facility] [address] [address] [id number] [place] [address] December, [facility] [address] [id number] [place] [address] Nov, [facility] [address] [id number] [place] [address] 17 Nov, 2012 [facility] [address] [id number] [place] [address] 16 Nov, 2012 [facility] [address] [id number] [place] [address] 15 Nov, 2012 [facility] [address] [id number] [place] [address] 10 Nov, 2012 [facility] [address] [id number] [place] [address] Nov, [facility] [address] [id number] [place] [address] Oct, [facility] [address] [id number] [place] [address] Oct, [facility] [address] [id number] [place] [address] Oct, [facility] [place] [facility] [address] [id number] [place] [address] Aug, [facility] [place] [facility] [address] [id number] [place] [address] Aug, [facility] [place] [facility] [address] [id number] [place] [address] Aug, [facility] [place] [facility] [address] [id number] [place] [address] Jul, [facility] [place] [facility] [address] [id number] [place] [address] Jul, [facility] [place] [facility] [address] [id number] [place] [address] Jun, [facility] [place] [facility] [address] [id number] [place] [address] Jun, [facility] [place] [facility] [address] [id number] [place] [address] Jun, [facility] [place] [facility] [address] [id number] [place] [address] Jun, [facility] [place] [facility] [address] [id number] [place] [address] May, [facility] [place] [facility] [address] [id number] [place] [address] 30 May, 2012 [facility] [place] [facility] [address] [id number] [place] [address] 05 Apr, 2012 [facility] [place] [facility] [address] [id number] [place] [address] Apr, [facility] [place] [facility] [address] [id number] [place] [address] Feb, [facility] [place] [facility] [address] [id number] [place] [address] Feb, [facility] [place] [facility] [address] [id number] [place] [address] Nov, [facility] [address] [id number] [place] [address] Oct, [facility] [place] [facility] [address] [id number] [place] [address] Sep, [facility] [place] [facility] [address] [id number] [place] [address] Sep, [facility] [place] [facility] [address] [id number] [place] [address] Sep, [facility] [place] [facility] [address] [id number] [place] [address] Aug, [facility] [place] [facility] [address] [id number] [place] [address] Aug, [facility] [place] [facility] [address] [id number] [place] [address] Aug, [facility] [place] [facility] [address] [id number] [place] [address] Jul, [facility] [place] [facility] [address] [facility] [id number] [place] [address] Jul, [facility] [place] [facility] [address] [facility] [id number] [place] [address] Jun, [facility] [place] [facility] [address] [id number] [place] [address] Jun, [facility] [place] [facility] [address] [id number] [place] [address] Jun, [facility] [place] [facility] [address] [id number] [place] [address] May, [facility] [place] [facility] [address] [id number] [place] [address] May, [facility] [place] [facility] [address] [id number] [place] [address] May, [facility] [address] [facility] [id number] [place] [address] May, [facility] [address] [facility] [id number], [place] [address] May, [facility] [address] [facility] [id number], [place] [address] Feb, [facility] [address] [facility] [id number], [place] [address] Nov, [facility] [address] [facility] [id number], [place] [address] Oct, IMMUNIZATIONS No Known Immunizations SOCIAL HISTORY Never Assessed REASON FOR VISIT [place] [place] CARE VITAL SIGNS MEDICATIONS Unknown Medications RESULTS No Results PROCEDURES No Known procedures INSTRUCTIONS MEDICATIONS ADMINISTERED No Known Medications MEDICAL (GENERAL) HISTORY Type Description Date Medical History hypertension Medical History hyperlipidemia Medical History type II diabetes Medical History Arthritis-knees and hips Medical History stroke-05/2011 Medical History leukemia (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 Yu Surgical History dilatation and curettage 03/2000 Surgical History tubal ligation 1979 Surgical History right mastectomy 05/29/2018 Surgical History cholecystectomy 05/29/2018 Hospitalization History [facility] admit for stroke 05/2011 Hospitalization History [facility] for elevated blood sugars 09/2010 Hospitalization History surgery and RT mastectomy 05/29/2018
--- OUTSIDE RECORDS SUMMARY | 2019-01-08 01:43 | XMS REPORT ---
Author Author Migration, Doctor Organization [facility] Address Unknown Phone Unavailable Care Team Providers Care Pharmaceutical Officer Name Role Phone Migration, Doctor Unavailable Unavailable PROBLEMS Type Condition ICD9-CM Code [id number] Code Onset Dates Condition Status SNOMED Code Problem History of CVA (cerebrovascular accident) Z86.73 Active 814655451 Problem Type 2 diabetes mellitus with diabetic neuropathy E11.40 Active 55555141 Problem Mixed hyperlipidemia E78.2 Active 420034254 Problem 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 Active 14249156 Problem History of renal failure Z87.448 Active 567781731 Problem 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, unspecified estrogen receptor status, unspecified site of breast C50.911 Active 999450754 Problem half-way current use of insulin Z79.4 Active 382054768 Problem Hemiplegia and hemiparesis following cerebral infarction affecting left non-dominant side I69.354 Active 852387016 Problem Essential hypertension I10 Active 19043781 Problem Osteoarthritis of right knee M17.9 Active 308837475 Problem Chronic idiopathic constipation K59.04 Active 18922139 Problem Other obesity due to excess calories E66.09 Active 497352787 Problem Constipation K59.00 Active 13452325 ALLERGIES No Information ENCOUNTERS Encounter Location Date Diagnosis [place] [id number] [place] [address] Mar, [address] [address] December, [address] [address] December, [facility] [address] [place] [address] December, Type 2 diabetes mellitus with diabetic neuropathy E11.40 ; Mixed hyperlipidemia E78.2 ; Hemiplegia and hemiparesis following cerebral infarction affecting left non-dominant side I69.354 ; Essential hypertension I10 and terminal operator current use of insulin Z79.4 [facility] [address] [address] December, [facility] [address] [place] [id number] [place] [address] December, Type 2 diabetes mellitus with diabetic neuropathy E11.40 [facility] [address] [address] December, Type 2 diabetes mellitus with diabetic neuropathy E11.40 [facility] [id number] [address] Nov, [facility] [address] [place] [address] Nov, Acute bronchitis, unspecified organism J20.9 [facility] [address] [address] Nov, Encounter for Medicare annual wellness exam Z00.00 and 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, unspecified estrogen receptor status, unspecified site of breast C50.911 [facility] [address] [address] Oct, [facility] [address] [place] [id number] [place] [address] Oct, [facility] [address] [address] Oct, [facility] [address] [address] Oct, [facility] [address] [address] Sep, History of CVA (cerebrovascular accident) Z86.73 ; Essential hypertension I10 and Type 2 diabetes mellitus with diabetic neuropathy E11.40 [facility] [address] [address] 14 Sep, 2018 [facility] [address] [place] [id number] [place] [address] Sep, Type 2 diabetes mellitus with diabetic neuropathy E11.40 ; Encounter for immunization Z23 ; History of CVA (cerebrovascular accident) Z86.73 and Essential hypertension I10 [facility] [address] [place] [id number] [place] [address] 24 Aug, 2018 Essential hypertension I10 [facility] [address] [address] 15 Aug, 2018 [facility] [address] [address] 14 Aug, 2018 [facility] [address] [address] 09 Aug, 2018 Abdominal pain R10.9 and Constipation K59.00 [facility] [address] [address] Jul, [facility] [address] [address] Jul, [facility] [address] [address] Jun, [facility] [address] [address] Jun, Essential hypertension I10 [facility] [address] [address] Jun, Type 2 diabetes mellitus with diabetic neuropathy E11.40 and Mixed hyperlipidemia E78.2 [facility] [address] [place] [address] [id number] [place] [address] Jun, Type 2 diabetes mellitus with diabetic neuropathy E11.40 ; Mixed hyperlipidemia E78.2 and Essential hypertension I10 [facility] [address] [address] May, [facility] [address] [address] May, [facility] [address] [place] [address] [address] Mar, Essential hypertension I10 and Type 2 diabetes mellitus with diabetic neuropathy E11.40 [facility] [address] [id number] [place] [address] Mar, [facility] [address] [place] [address] Mar, Essential hypertension I10 [facility] [address] [place] [address] [id number] [place] [address] Mar, Type 2 diabetes mellitus with diabetic neuropathy E11.40 [facility] [address] [place] [id number] Feb, Dental caries K02.9 [facility] [address] [place] [id number] [place] [address] Feb, [facility] [address] [place] [address] [id number] [place] [address] Feb, Type 2 diabetes mellitus with diabetic neuropathy E11.40 ; Essential hypertension I10 ; Mixed hyperlipidemia E78.2 ; History of CVA (cerebrovascular accident) Z86.73 ; Other obesity due to excess calories E66.09 and Body mass index (BMI) of 31.0-31.[address] [facility] [address] [place] [id number] Jan, Dental examination Z01.20 [facility] [address] [address] Jan, Type 2 diabetes mellitus with diabetic neuropathy E11.40 [facility] [address] [id number] Nov, Dental caries K02.9 [facility] [address] [address] Nov, Type 2 diabetes mellitus with diabetic neuropathy E11.40 [facility] [address] [place] [address] Nov, Medicare annual wellness visit, initial Z00.00 ; Type 2 diabetes mellitus with diabetic neuropathy E11.40 ; terminal operator current use of insulin Z79.4 ; 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 ; Essential hypertension I10 ; Mixed hyperlipidemia E78.2 ; History of CVA (cerebrovascular accident) Z86.73 ; History of renal failure Z87.448 ; Osteoarthritis of right knee M17.9 and Encounter for immunization Z23 [facility] [address] [place] [id number] Nov, 2017 Dental examination Z01.20 [facility] [address] [address] Oct, Type 2 diabetes mellitus with diabetic neuropathy E11.40 ; half-way current use of insulin Z79.4 ; 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 ; History of renal failure Z87.448 ; Mild single current episode of major depressive disorder F32.0 ; Essential hypertension I10 ; Mixed hyperlipidemia E78.2 and Chronic idiopathic constipation K59.04 [facility] [address] [place] [address] [id number] [place] [address] 15 Oct, 2017 Type 2 diabetes mellitus with diabetic neuropathy E11.40 ; Dental caries extending into pulp K02.9 ; Nausea and vomiting, intractability of vomiting not specified, unspecified vomiting type R11.2 and Chronic idiopathic constipation K59.04 [facility] [address] [id number] [place] [address] Oct, Type 2 diabetes mellitus with diabetic neuropathy E11.40 [facility] [id number] [place] [address] Aug, [facility] [address] [place] [id number] [place] [address] Jul, Type 2 diabetes mellitus with diabetic neuropathy E11.40 [facility] [address] [place] [address] [id number] [place] [address] Jul, Muscle spasm of back M62.830 [facility] [address] [address] Jun, Type 2 diabetes mellitus with diabetic neuropathy E11.40 ; terminal operator current use of insulin Z79.4 ; [facility] C92.11 ; History of renal failure Z87.448 and Mild single current episode of major depressive disorder F32.0 [facility] [address] [place] [address] Mar, Type 2 diabetes mellitus with diabetic neuropathy E11.40 ; half-way current use of insulin Z79.4 ; Chronic myeloid leukemia in [facility] C92.11 ; History of renal failure Z87.448 ; Mild single current episode of major depressive disorder F32.0 ; Pain in right knee M25.561 and Encounter for immunization Z23 [place] [address] [place] [id number] [place] [address] Feb, Bloody discharge from right nipple N64.52 [place] [address] [address] Feb, [facility] [address] [place] [id number] [place] [address] Feb, [facility] [address] [place] [id number] [place] [address] December, Type 2 diabetes mellitus with diabetic neuropathy E11.40 [facility] [address] [place] [id number] [place] [address] December, Type 2 diabetes mellitus with diabetic neuropathy E11.40 ; half-way current use of insulin Z79.4 ; Chronic myeloid leukemia in [facility] C92.11 ; History of renal failure Z87.448 ; Mild single current episode of major depressive disorder F32.0 and Pain in right knee M25.561 [facility] [address] [place] [id number] [place] [address] Nov, Type 2 diabetes mellitus with diabetic neuropathy E11.40 ; half-way current use of insulin Z79.4 ; [facility] C92.11 ; History of renal failure Z87.448 ; Mild single current episode of major depressive disorder F32.0 and Pain in right knee M25.561 [facility] [address] [place] [id number] [address] 16 Sep, 2016 Osteoarthritis of right knee M17.9 [facility] [address] [place] [address] 08 Sep, 2016 Type 2 diabetes mellitus with diabetic neuropathy E11.40 ; half-way current use of insulin Z79.4 ; Chronic myeloid leukemia in [facility] C92.11 ; History of renal failure Z87.448 ; Mild single current episode of major depressive disorder F32.0 and Pain in right knee M25.561 [facility] [address] [address] Aug, Type 2 diabetes mellitus with diabetic neuropathy E11.40 [place] [address] [place] [address] Jul, Type 2 diabetes mellitus with diabetic neuropathy E11.40 ; terminal operator current use of insulin Z79.4 ; Chronic myeloid leukemia in [place] 734662.11 ; History of renal failure Z87.448 and Mild single current episode of major depressive disorder F32.0 [place] [address] [place] [address] Jun, [place] [address] [place] [address] May, Type 2 diabetes mellitus with diabetic neuropathy E11.40 [facility] [address] [address] May, Tendonitis M77.9 [facility] [address] [place] [address] 04 May, 2016 Type 2 diabetes mellitus with diabetic neuropathy E11.40 ; half-way current use of insulin Z79.4 ; Chronic myeloid leukemia in [place] 734662.11 ; History of renal failure Z87.448 and Mild single current episode of major depressive disorder F32.0 [facility] [address] [address] Apr, Type 2 diabetes mellitus with diabetic neuropathy E11.40 [place] [address] [place] [address] 14 Apr, 2016 Type 2 diabetes mellitus with diabetic neuropathy E11.40 ; half-way current use of insulin Z79.4 ; Chronic myeloid leukemia in [facility] C92.11 ; History of renal failure Z87.448 ; Mild single current episode of major depressive disorder F32.0 and Right foot pain M79.671 [place] [address] [place] [id number] [place] [address] Feb, History of renal failure Z87.448 [place] [address] [place] [id number] [place] [address] Feb, Type 2 diabetes mellitus with diabetic neuropathy E11.40 ; terminal operator current use of insulin Z79.4 ; Chronic myeloid leukemia in [place] 734662.11 ; History of renal failure Z87.448 and Mild single current episode of major depressive disorder F32.0 [place] [address] [place] [id number] [place] [address] Feb, 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 [place] [address] [place] [id number] [place] [address] Feb, Type 2 diabetes mellitus with diabetic neuropathy E11.40 ; half-way current use of insulin Z79.4 ; Chronic myeloid leukemia in [facility] C92.11 ; Essential hypertension I10 ; Mixed hyperlipidemia E78.2 ; History of CVA (cerebrovascular accident) Z86.73 ; History of renal failure Z87.448 and Mild single current episode of major depressive disorder F32.0 [place] [address] [place] [address] Jan, Type 2 diabetes mellitus with diabetic neuropathy E11.40 ; half-way current use of insulin Z79.4 ; Chronic myeloid leukemia in [facility] C92.11 ; Essential hypertension I10 ; Mixed hyperlipidemia E78.2 ; History of CVA (cerebrovascular accident) Z86.73 and History of renal failure Z87.448 [place] [address] [place] [id number] [place] [address] Jan, [facility] [address] [place] [address] Jan, Cellulitis of hand, left L03.114 [place] [address] [place] [id number] [place] [address] Nov, Osteoarthritis of right knee M17.9 [place] [address] [place] [id number] [place] [address] Sep, Type 2 diabetes mellitus with diabetic neuropathy E11.40 ; half-way current use of insulin Z79.4 ; 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 ; Essential hypertension I10 ; Mixed hyperlipidemia E78.2 and History of CVA (cerebrovascular accident) Z86.73 [place] [address] [place] [id number] [place] [address] Aug, Osteoarthritis of right knee M17.9 [place] [address] [place] [id number] [place] [address] Aug, Pain in right knee M25.561 [place] [address] [place] [id number] [place] [address] Jul, [place] [address] [place] [id number] [place] [address] Jun, [place] [address] [place] [id number] [place] [address] Jun, Axillary lump, right R22.31 [place] [address] [place] [id number] [place] [address] 04 Jun, 2015 Type 2 diabetes mellitus with diabetic neuropathy E11.40 ; Encounter for immunization Z23 ; terminal operator current use of insulin Z79.4 ; 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 ; Essential hypertension I10 ; Mixed hyperlipidemia E78.2 ; History of CVA (cerebrovascular accident) Z86.73 and Axillary lump, right R22.31 [place] [address] [place] [id number] [place] [address] Mar, Hyperlipidemia 272.4 [facility] [address] [address] Mar, Right knee pain 719.46 [facility] [address] [id number] [place] [address] Mar, Rotator cuff impingement syndrome of left shoulder 726.10 [facility] [address] [place] [id number] [place] [address] Feb, [facility] [id number] [place] [address] Feb, Chronic myeloid leukemia, without mention of having achieved remission 205.10 ; Essential hypertension, malignant 401.0 ; Unspecified hereditary and idiopathic peripheral neuropathy 356.9 ; Diabetes mellitus type 2, controlled, with complications 250.90 ; Hyperlipidemia 272.4 and Pain, joint, shoulder, left 719.41 [facility] [address] [place] [id number] [place] [address] Jan, [facility] [address] [id number] [place] [address] Nov, [facility] [address] [place] [id number] [place] [address] Nov, [facility] [address] [place] [id number] [place] [address] Oct, [facility] [address] [place] [address] Oct, [facility] [address] [id number] [place] [address] Oct, [facility] [address] [place] [id number] [place] [address] Oct, [facility] [address] [address] Oct, [facility] [address] [place] [id number] [place] [address] Oct, [facility] [place] [facility] [address] [id number] [place] [address] Sep, [facility] [place] [facility] [address] [id number] [place] [address] Sep, [facility] [place] [facility] [address] [id number] [place] [address] Aug, [facility] [place] [facility] [address] [id number] [place] [address] Aug, [facility] [place] [facility] [address] [id number] [place] [address] Jul, [facility] [place] [facility] [address] [id number] [place] [address] Jul, [facility] [place] [facility] [address] [id number] [place] [address] Jul, [facility] [place] [facility] [address] [id number] [place] [address] Jul, [facility] [place] [facility] [address] [id number] [place] [address] Jul, [facility] [place] [facility] [address] [id number] [place] [address] Jul, [facility] [place] [facility] [address] [id number] [place] [address] Jul, [facility] [place] [facility] [address] [id number] [place] [address] Jul, [facility] [place] [facility] [address] [id number] [place] [address] Jul, [facility] [place] [facility] [address] [id number] [place] [address] May, [facility] [place] [facility] [address] [id number] [place] [address] May, [facility] [place] [facility] [address] [id number] [place] [address] 29 Apr, 2014 [facility] [place] [facility] [address] [id number] [place] [address] Apr, [facility] [place] [facility] [address] [id number] [place] [address] Apr, [facility] [place] [facility] [address] [id number] [place] [address] Apr, [facility] [place] [facility] [address] [id number] [place] [address] Feb, [facility] [place] [facility] [address] [id number] [place] [address] Feb, [facility] [place] [facility] [address] [id number] [place] [address] Feb, [facility] [place] [facility] [address] [id number] [place] [address] Feb, [facility] [place] [facility] [address] [id number] [place] [address] Jan, [facility] [place] [facility] [address] [id number] [place] [address] Jan, [facility] [place] [facility] [address] [id number] [place] [address] Jan, [facility] [place] [facility] [address] [id number] [place] [address] Jan, [facility] [place] [facility] [address] [id number] [place] [address] Jan, [facility] [place] [facility] [address] [id number] [place] [address] Jan, [facility] [place] [facility] [address] [id number] [place] [address] December, [facility] [place] [facility] [address] [id number] [place] [address] December, [facility] [place] [facility] [address] [id number] [place] [address] December, [facility] [place] [facility] [address] [id number] [place] [address] December, [facility] [place] [facility] [address] [id number] [place] [address] Nov, [facility] [place] [facility] [address] [id number] [place] [address] Nov, [facility] [place] [facility] [address] [id number] [place] [address] Nov, [facility] [place] [facility] [address] [id number] [place] [address] Nov, [facility] [place] [facility] [address] [id number] [place] [address] Oct, [facility] [place] [facility] [address] [id number] [place] [address] Oct, [facility] [place] [facility] [address] [id number] [place] [address] Oct, [facility] [place] [facility] [address] [id number] [place] [address] Oct, [facility] [place] [facility] [address] [id number] [place] [address] Oct, [facility] [place] [facility] [address] [id number] [place] [address] Oct, [facility] [place] [facility] [address] [id number] [place] [address] Sep, [facility] [place] [facility] [address] [id number] [place] [address] Sep, [facility] [place] [facility] [address] [id number] [place] [address] Sep, [facility] [place] [facility] [address] [id number] [place] [address] Sep, [facility] [address] [id number] [place] [address] Aug, [facility] [place] [facility] [address] [id number] [place] [address] Aug, [facility] [place] [facility] [address] [id number] [place] [address] Aug, [facility] [place] [facility] [address] [id number] [place] [address] Aug, [facility] [place] [facility] [address] [id number] [place] [address] Aug, [facility] [place] [facility] [address] [id number] [place] [address] Aug, [facility] [address] [id number] [place] [address] Jul, [facility] [place] [facility] [address] [id number] [place] [address] Jul, [facility] [place] [facility] [address] [id number] [place] [address] Jul, [facility] [place] [facility] [address] [id number] [place] [address] Jul, [facility] [place] [facility] [address] [id number] [place] [address] Jun, [facility] [place] [facility] [address] [id number] [place] [address] Jun, [facility] [place] [facility] [address] [id number] [place] [address] May, [facility] [place] [facility] [address] [id number] [place] [address] 16 Feb, 2013 [facility] [place] [facility] [address] [id number] [place] [address] Feb, [facility] [place] [facility] [address] [id number] [place] [address] Feb, [facility] [address] [id number] [place] [address] Jan[facility] [address] [id number] [place] [address] Jan, [facility] [address] [id number] [place] [address] Jan, [facility] [facility] [address] [id number] [place] [address] December, [facility] [address] [id number] [place] [address] December, [facility] [address] [id number] [place] [address] December, [facility] [address] [id number] [place] [address] Nov, [facility] [address] [id number] [place] [address] 17 Nov, 2012 [facility] [address] [id number] [place] [address] 16 Nov, 2012 [facility] [address] [id number] [place] [address] 15 Nov, 2012 [facility] [address] [id number] [place] [address] 10 Nov, 2012 [facility] [address] [id number] [place] [address] Nov, [facility] [address] [id number] [place] [address] Oct, [facility] [address] [id number] [place] [address] Oct, [facility] [address] [id number] [place] [address] Oct, [facility] [place] [facility] [address] [id number] [place] [address] Aug, [facility] [place] [facility] [address] [id number] [place] [address] Aug, [facility] [place] [facility] [address] [id number] [place] [address] Aug, [facility] [place] [facility] [address] [id number] [place] [address] Jul, [facility] [place] [facility] [address] [id number] [place] [address] Jul, [facility] [place] [facility] [address] [id number] [place] [address] Jun, [facility] [place] [facility] [address] [id number] [place] [address] Jun, [facility] [place] [facility] [address] [id number] [place] [address] Jun, [facility] [place] [facility] [address] [id number] [place] [address] Jun, [facility] [place] [facility] [address] [id number] [place] [address] May, [facility] [place] [facility] [address] [id number] [place] [address] 30 May, 2012 [facility] [place] [facility] [address] [id number] [place] [address] 05 Apr, 2012 [facility] [place] [facility] [address] [id number] [place] [address] Apr, [facility] [place] [facility] [address] [id number] [place] [address] Feb, [facility] [place] [facility] [address] [id number] [place] [address] Feb, [facility] [place] [facility] [address] [id number] [place] [address] Nov, [facility] [address] [id number] [place] [address] Oct, [facility] [place] [facility] [address] [id number] [place] [address] Sep, [facility] [place] [facility] [address] [id number] [place] [address] Sep, [facility] [place] [facility] [address] [id number] [place] [address] Sep, [facility] [place] [facility] [address] [id number] [place] [address] Aug, [facility] [place] [facility] [address] [id number] [place] [address] Aug, [facility] [place] [facility] [address] [id number] [place] [address] Aug, [facility] [place] [facility] [address] [id number] [place] [address] Jul, [facility] [place] [facility] [address] [facility] [id number] [place] [address] Jul, [facility] [place] [facility] [address] [facility] [id number] [place] [address] Jun, [facility] [place] [facility] [address] [id number] [place] [address] Jun, [facility] [place] [facility] [address] [id number] [place] [address] Jun, [facility] [place] [facility] [address] [id number] [place] [address] May, [facility] [place] [facility] [address] [id number] [place] [address] May, [facility] [place] [facility] [address] [id number] [place] [address] May, [facility] [address] [facility] [id number] [address] May, [facility] [address] [facility] [id number] [address] May, [facility] [address] [facility] [id number] [place] [address] Feb, [facility] [address] [facility] [id number] [address] Nov, [facility] [address] [facility] [id number] [address] Oct, IMMUNIZATIONS No Known Immunizations SOCIAL HISTORY Never Assessed REASON FOR VISIT [facility] [place] VITAL SIGNS MEDICATIONS Unknown Medications RESULTS No Results PROCEDURES Procedure Date Ordered Result Body Site COMPUTER DX MAMMOGRAM ADD-ON Jul 24, 2014 US EXAM, BREAST(S) Jul 24, 2014 INSTRUCTIONS MEDICATIONS ADMINISTERED No Known Medications MEDICAL [...] Surgical History cholecystectomy 05/29/2018 Hospitalization History Via [facility] admit for stroke 05/2011 Hospitalization History Via [facility] for elevated blood sugars 09/2010 Hospitalization History surgery and RT mastectomy 05/29/2018
--- OUTSIDE RECORDS SUMMARY | 2019-01-08 01:44 | XMS REPORT ---
Author Author Migration, Doctor Organization [facility] Address Unknown Phone Unavailable Care Team Providers Care Waste Hand Name Role Phone Migration, Doctor Unavailable Unavailable PROBLEMS Type Condition ICD9-CM Code XDB35-OP Code Onset Dates Condition Status SNOMED Code Problem History of CVA (cerebrovascular accident) Z86.73 Active 202163584 Problem Type 2 diabetes mellitus with diabetic neuropathy E11.40 Active 18089251 Problem Mixed hyperlipidemia E78.2 Active 477615531 Problem 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 Active 73035613 Problem History of renal failure Z87.448 Active 336592050 Problem 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, unspecified estrogen receptor status, unspecified site of breast C50.911 Active 039793997 Problem penitentiary current use of insulin Z79.4 Active 341455617 Problem Hemiplegia and hemiparesis following cerebral infarction affecting left non-dominant side I69.354 Active 900770009 Problem Essential hypertension I10 Active 29352013 Problem Osteoarthritis of right knee M17.9 Active 550214851 Problem Chronic idiopathic constipation K59.04 Active 96403963 Problem Other obesity due to excess calories E66.09 Active 180425408 Problem Constipation K59.00 Active 25805837 ALLERGIES No Information ENCOUNTERS Encounter Location Date Diagnosis [place] [id number] [place] [address] Mar, [address] [address] December, [address] [address] December, [facility] [address] [place] [address] December, Type 2 diabetes mellitus with diabetic neuropathy E11.40 ; Mixed hyperlipidemia E78.2 ; Hemiplegia and hemiparesis following cerebral infarction affecting left non-dominant side I69.354 ; Essential hypertension I10 and 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 service current use of insulin Z79.4 [facility] [address] [address] December, [facility] [address] [place] [id number] [place] [address] December, Type 2 diabetes mellitus with diabetic neuropathy E11.40 [facility] [address] [address] December, Type 2 diabetes mellitus with diabetic neuropathy E11.40 [facility] [id number] [address] Nov, [facility] [address] [place] [address] Nov, Acute bronchitis, unspecified organism J20.9 [facility] [address] [address] Nov, Encounter for Medicare annual wellness exam Z00.00 and 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, unspecified estrogen receptor status, unspecified site of breast C50.911 [facility] [address] [address] Oct, [facility] [address] [place] [address] [id number] [place] [address] Oct, [facility] [address] [address] Oct, [facility] [address] [address] Oct, [facility] [address] [address] Sep, History of CVA (cerebrovascular accident) Z86.73 ; Essential hypertension I10 and Type 2 diabetes mellitus with diabetic neuropathy E11.40 [facility] [address] [address] 14 Sep, 2018 [facility] [id number] [place] [address] Sep, Type 2 diabetes mellitus with diabetic neuropathy E11.40 ; Encounter for immunization Z23 ; History of CVA (cerebrovascular accident) Z86.73 and Essential hypertension I10 [facility] [id number] [place] [address] 24 Aug, 2018 Essential hypertension I10 [facility] [address] [address] 15 Aug, 2018 [facility] [address] [address] 14 Aug, 2018 [facility] [address] [address] 09 Aug, 2018 Abdominal pain R10.9 and Constipation K59.00 [facility] [address] [address] Jul, [facility] [address] [address] Jul, [facility] [address] [address] Jun, [facility] [address] [address] Jun, Essential hypertension I10 [facility] [address] [address] Jun, Type 2 diabetes mellitus with diabetic neuropathy E11.40 and Mixed hyperlipidemia E78.2 [facility] [id number] [place] [address] Jun, Type 2 diabetes mellitus with diabetic neuropathy E11.40 ; Mixed hyperlipidemia E78.2 and Essential hypertension I10 [facility] [address] [address] May, [facility] [address] [address] May, [facility] [address] [place] [address] Mar, Essential hypertension I10 and Type 2 diabetes mellitus with diabetic neuropathy E11.40 [facility] [id number] [place] [address] Mar, [facility] [address] [place] [address] Mar, Essential hypertension I10 [facility] [id number] [place] [address] Mar, Type 2 diabetes mellitus with diabetic neuropathy E11.40 [facility] [address] [place] [id number] Feb, Dental caries K02.9 [facility] [address] [id number] [place] [address] Feb, [facility] [address] [place] [id number] [place] [address] Feb, Type 2 diabetes mellitus with diabetic neuropathy E11.40 ; Essential hypertension I10 ; Mixed hyperlipidemia E78.2 ; History of CVA (cerebrovascular accident) Z86.73 ; Other obesity due to excess calories E66.09 and Body mass index (BMI) of 31.0-31.9 in adult Z68.31 [facility] [address] [place] [id number] Jan, Dental examination Z01.20 [facility] [address], [place] [address] Jan, Type 2 diabetes mellitus with diabetic neuropathy E11.40 [facility] [address] [id number] Nov, Dental caries K02.9 [facility] [address], [place] [address] Nov, Type 2 diabetes mellitus with diabetic neuropathy E11.40 [facility] [address] [place] [address] Nov, Medicare annual wellness visit, initial Z00.00 ; Type 2 diabetes mellitus with diabetic neuropathy E11.40 ; intermodal customer service current use of insulin Z79.4 ; 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 ; Essential hypertension I10 ; Mixed hyperlipidemia E78.2 ; History of CVA (cerebrovascular accident) Z86.73 ; History of renal failure Z87.448 ; Osteoarthritis of right knee M17.9 and Encounter for immunization Z23 [facility] [address] [place] [id number] 03 Nov, 2017 Dental examination Z01.20 [facility] [address] [address] Oct, Type 2 diabetes mellitus with diabetic neuropathy E11.40 ; penitentiary current use of insulin Z79.4 ; 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 ; History of renal failure Z87.448 ; Mild single current episode of major depressive disorder F32.0 ; Essential hypertension I10 ; Mixed hyperlipidemia E78.2 and Chronic idiopathic constipation K59.04 [facility] [address] [id number] [place] [address] 15 Oct, 2017 Type 2 diabetes mellitus with diabetic neuropathy E11.40 ; Dental caries extending into pulp K02.9 ; Nausea and vomiting, intractability of vomiting not specified, unspecified vomiting type R11.2 and Chronic idiopathic constipation K59.04 [facility] [address] [place] [address] [id number] [place] [address] Oct, Type 2 diabetes mellitus with diabetic neuropathy E11.40 [facility] [address] [place] [address] [id number] [place] [address] Aug, [facility] [address] [place] [id number] [place] [address] Jul, Type 2 diabetes mellitus with diabetic neuropathy E11.40 [facility] [address] [id number] [place] [address] Jul, Muscle spasm of back M62.830 [facility] [address] [address] Jun, Type 2 diabetes mellitus with diabetic neuropathy E11.40 ; intermodal customer service current use of insulin Z79.4 ; [facility] ; History of renal failure Z87.448 and Mild single current episode of major depressive disorder F32.0 [facility] [address] [place] [address] Mar, Type 2 diabetes mellitus with diabetic neuropathy E11.40 ; penitentiary current use of insulin Z79.4 ; Chronic myeloid leukemia in [facility] C92.11 ; History of renal failure Z87.448 ; Mild single current episode of major depressive disorder F32.0 ; Pain in right knee M25.561 and Encounter for immunization Z23 [place] [address] [place] [address] [id number] [place] [address] Feb, Bloody discharge from right nipple N64.52 [place] [address] [address] Feb, [facility] [id number] [place] [address] Feb, [facility] [id number] [place] [address] December, Type 2 diabetes mellitus with diabetic neuropathy E11.40 [facility] [id number] [place] [address] December, Type 2 diabetes mellitus with diabetic neuropathy E11.40 ; penitentiary current use of insulin Z79.4 ; Chronic myeloid leukemia in [facility] C92.11 ; History of renal failure Z87.448 ; Mild single current episode of major depressive disorder F32.0 and Pain in right knee M25.561 [facility] [id number] [place] [address] Nov, Type 2 diabetes mellitus with diabetic neuropathy E11.40 ; penitentiary current use of insulin Z79.4 ; [facility] ; History of renal failure Z87.448 ; Mild single current episode of major depressive disorder F32.0 and Pain in right knee M25.561 [facility] [address] [place] [id number] [address] 16 Sep, 2016 Osteoarthritis of right knee M17.9 [facility] [address] [place] [address] 08 Sep, 2016 Type 2 diabetes mellitus with diabetic neuropathy E11.40 ; penitentiary current use of insulin Z79.4 ; Chronic myeloid leukemia in [facility] C92.11 ; History of renal failure Z87.448 ; Mild single current episode of major depressive disorder F32.0 and Pain in right knee M25.561 [facility] [address], [place] [address] Aug, Type 2 diabetes mellitus with diabetic neuropathy E11.40 [place] [address] [place] [address] Jul, Type 2 diabetes mellitus with diabetic neuropathy E11.40 ; intermodal customer service current use of insulin Z79.4 ; Chronic myeloid leukemia in [place] 278452.11 ; History of renal failure Z87.448 and Mild single current episode of major depressive disorder F32.0 [place] [address] [place] [address] Jun, [place] [address] [place] [address] May, Type 2 diabetes mellitus with diabetic neuropathy E11.40 [facility] [address], [place] [address] May, Tendonitis M77.9 [facility] [address] [place] [address] 04 May, 2016 Type 2 diabetes mellitus with diabetic neuropathy E11.40 ; penitentiary current use of insulin Z79.4 ; Chronic myeloid leukemia in [place] 278452.11 ; History of renal failure Z87.448 and Mild single current episode of major depressive disorder F32.0 [facility] [address], [place] [address] Apr, Type 2 diabetes mellitus with diabetic neuropathy E11.40 [place] [address] [place] [address] 14 Apr, 2016 Type 2 diabetes mellitus with diabetic neuropathy E11.40 ; penitentiary current use of insulin Z79.4 ; Chronic myeloid leukemia in [facility] C92.11 ; History of renal failure Z87.448 ; Mild single current episode of major depressive disorder F32.0 and Right foot pain M79.671 [place] [address] [place] [id number] [place] [address] Feb, History of renal failure Z87.448 [place] [address] [place] [id number] [place] [address] Feb, Type 2 diabetes mellitus with diabetic neuropathy E11.40 ; intermodal customer service current use of insulin Z79.4 ; Chronic myeloid leukemia in [place] 278452.11 ; History of renal failure Z87.448 and Mild single current episode of major depressive disorder F32.0 [place] [address] [place] [id number] [place] [address] Feb, 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 [place] [address] [place] [id number] [place] [address] Feb, Type 2 diabetes mellitus with diabetic neuropathy E11.40 ; penitentiary current use of insulin Z79.4 ; Chronic myeloid leukemia in [facility] C92.11 ; Essential hypertension I10 ; Mixed hyperlipidemia E78.2 ; History of CVA (cerebrovascular accident) Z86.73 ; History of renal failure Z87.448 and Mild single current episode of major depressive disorder F32.0 [place] [address] [place] [address] Jan, Type 2 diabetes mellitus with diabetic neuropathy E11.40 ; penitentiary current use of insulin Z79.4 ; Chronic myeloid leukemia in [facility] C92.11 ; Essential hypertension I10 ; Mixed hyperlipidemia E78.2 ; History of CVA (cerebrovascular accident) Z86.73 and History of renal failure Z87.448 [place] [address] [place] [place] [id number] [place] [address] Jan, [facility] [address] [place] [address] Jan, Cellulitis of hand, left L03.114 [place] [address] [place] [id number] [place] [address] Nov, Osteoarthritis of right knee M17.9 [place] [address] [place] [id number] [place] [address] Sep, Type 2 diabetes mellitus with diabetic neuropathy E11.40 ; penitentiary current use of insulin Z79.4 ; 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 ; Essential hypertension I10 ; Mixed hyperlipidemia E78.2 and History of CVA (cerebrovascular accident) Z86.73 [place] [address] [place] [id number] [place] [address] Aug, Osteoarthritis of right knee M17.9 [place] [address] [place] [id number] [place] [address] Aug, Pain in right knee M25.561 [place] [address] [place] [id number] [place] [address] Jul, [place] [id number] [place] [address] Jun, [place] [address] [place] [id number] [place] [address] Jun, Axillary lump, right R22.31 [place] [address] [id number] [place] [address] 04 Jun, 2015 Type 2 diabetes mellitus with diabetic neuropathy E11.40 ; Encounter for immunization Z23 ; intermodal customer service current use of insulin Z79.4 ; 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 ; Essential hypertension I10 ; Mixed hyperlipidemia E78.2 ; History of CVA (cerebrovascular accident) Z86.73 and Axillary lump, right R22.31 [place] [address] [place] [id number] [place] [address] Mar, Hyperlipidemia 272.4 [facility] [address], [place] [address] Mar, Right knee pain 719.46 [facility] [id number] [place] [address] Mar, Rotator cuff impingement syndrome of left shoulder 726.10 [facility] [id number] [place] [address] Feb, [facility] [id number] [place] [address] Feb, Chronic myeloid leukemia, without mention of having achieved remission 205.10 ; Essential hypertension, malignant 401.0 ; Unspecified hereditary and idiopathic peripheral neuropathy 356.9 ; Diabetes mellitus type 2, controlled, with complications 250.90 ; Hyperlipidemia 272.4 and Pain, joint, shoulder, left 719.41 [facility] [id number] [place] [address] Jan, [facility] [id number] [place] [address] Nov, [facility] [id number] [place] [address] Nov, [facility] [id number] [place] [address] Oct, [facility] [address] [place] [address] Oct, [facility] [id number] [place] [address] Oct, [facility] [id number] [place] [address] Oct, [facility] [address], [place] [address] Oct, [facility] [id number] [place] [address] Oct, [facility] [place] [facility] [address] [id number] [place] [address] Sep, [facility] [place] [facility] [address] [id number] [place] [address] Sep, [facility] [place] [facility] [address] [id number] [place] [address] Aug, [facility] [place] [facility] [address] [id number] [place] [address] Aug, [facility] [place] [facility] [address] [id number] [place] [address] Jul, [facility] [place] [facility] [address] [id number] [place] [address] Jul, [facility] [place] [facility] [address] [id number] [place] [address] Jul, [facility] [place] [facility] [address] [id number] [place] [address] Jul, [facility] [place] [facility] [address] [id number] [place] [address] Jul, [facility] [place] [facility] [address] [id number] [place] [address] Jul, [facility] [place] [facility] [address] [id number] [place] [address] Jul, [facility] [place] [facility] [address] [id number] [place] [address] Jul, [facility] [place] [facility] [address] [id number] [place] [address] Jul, [facility] [place] [facility] [address] [id number] [place] [address] May, [facility] [place] [facility] [address] [id number] [place] [address] May, [facility] [place] [facility] [address] [id number] [place] [address] 29 Apr, 2014 [facility] [place] [facility] [address] [id number] [place] [address] Apr, [facility] [place] [facility] [address] [id number] [place] [address] Apr, [facility] [place] [facility] [address] [id number] [place] [address] Apr, [facility] [place] [facility] [address] [id number] [place] [address] Feb, [facility] [place] [facility] [address] [id number] [place] [address] Feb, [facility] [place] [facility] [address] [id number] [place] [address] Feb, [facility] [place] [facility] [address] [id number] [place] [address] Feb, [facility] [place] [facility] [address] [id number] [place] [address] Jan, [facility] [place] [facility] [address] [id number] [place] [address] Jan, [facility] [place] [facility] [address] [id number] [place] [address] Jan, [facility] [place] [facility] [address] [id number] [place] [address] Jan, [facility] [place] [facility] [address] [id number] [place] [address] Jan, [facility] [place] [facility] [address] [id number] [place] [address] Jan, [facility] [place] [facility] [address] [id number] [place] [address] December, [facility] [place] [facility] [address] [id number] [place] [address] December, [facility] [place] [facility] [address] [id number] [place] [address] December, [facility] [place] [facility] [address] [id number] [place] [address] December, [facility] [place] [facility] [address] [id number] [place] [address] Nov, [facility] [place] [facility] [address] [id number] [place] [address] Nov, [facility] [place] [facility] [address] [id number] [place] [address] Nov, [facility] [place] [facility] [address] [id number] [place] [address] Nov, [facility] [place] [facility] [address] [id number] [place] [address] Oct, [facility] [place] [facility] [address] [id number] [place] [address] Oct, [facility] [place] [facility] [address] [id number] [place] [address] Oct, [facility] [place] [facility] [address] [id number] [place] [address] Oct, [facility] [place] [facility] [address] [id number] [place] [address] Oct, [facility] [place] [facility] [address] [id number] [place] [address] Oct, [facility] [place] [facility] [address] [id number] [place] [address] Sep, [facility] [place] [facility] [address] [id number] [place] [address] Sep, [facility] [place] [facility] [address] [id number] [place] [address] Sep, [facility] [place] [facility] [address] [id number] [place] [address] Sep, [facility] [address] [id number] [place] [address] Aug, [facility] [place] [facility] [address] [id number] [place] [address] Aug, [facility] [place] [facility] [address] [id number] [place] [address] Aug, [facility] [place] [facility] [address] [id number] [place] [address] Aug, [facility] [place] [facility] [address] [id number] [place] [address] Aug, [facility] [place] [facility] [address] [id number] [place] [address] Aug, [facility] [address] [id number] [place] [address] Jul, [facility] [place] [facility] [address] [id number] [place] [address] Jul, [facility] [place] [facility] [address] [id number] [place] [address] Jul, [facility] [place] [facility] [address] [id number] [place] [address] Jul, [facility] [place] [facility] [address] [id number] [place] [address] Jun, [facility] [place] [facility] [address] [id number] [place] [address] Jun, [facility] [place] [facility] [address] [id number] [place] [address] May, [facility] [place] [facility] [address] [id number] [place] [address] 16 Feb, 2013 [facility] [place] [facility] [address] [id number] [place] [address] Feb, [facility] [place] [facility] [address] [id number] [place] [address] Feb, [facility] [address] [id number] [place] [address] Jan, [facility] [address] [id number] [place] [address] Jan, [facility] [address] [id number] [place] [address] Jan, [facility] [address] [id number] [place] [address] December, [facility] [address] [id number] [place] [address] December, [facility] [address] [id number] [place] [address] December, [facility] [address] [id number] [place] [address] Nov, [facility] [address] [id number] [place] [address] 17 Nov, 2012 [facility] [address] [id number] [place] [address] 16 Nov, 2012 [facility] [address] [id number] [place] [address] 15 Nov, 2012 [facility] [address] [id number] [place] [address] 10 Nov, 2012 [facility] [address] [id number] [place] [address] Nov, [facility] [address] [id number] [place] [address] Oct, [facility] [address] [id number] [place] [address] Oct, [facility] [address] [id number] [place] [address] Oct, [facility] [place] [facility] [address] [id number] [place] [address] Aug, [facility] [place] [facility] [address] [id number] [place] [address] Aug, [facility] [place] [facility] [address] [id number] [place] [address] Aug, [facility] [place] [facility] [address] [id number] [place] [address] Jul, [facility] [place] [facility] [address] [id number] [place] [address] Jul, [facility] [place] [facility] [address] [id number] [place] [address] Jun, [facility] [place] [facility] [address] [id number] [place] [address] Jun, [facility] [place] [facility] [address] [id number] [place] [address] Jun, [facility] [place] [facility] [address] [id number] [place] [address] Jun, [facility] [place] [facility] [address] [id number] [place] [address] May, [facility] [place] [facility] [address] [id number] [place] [address] 30 May, 2012 [facility] [place] [facility] [address] [id number] [place] [address] 05 Apr, 2012 [facility] [place] [facility] [address] [id number] [place] [address] Apr, [facility] [place] [facility] [address] [id number] [place] [address] Feb, [facility] [place] [facility] [address] [id number] [place] [address] Feb, [facility] [place] [facility] [address] [id number] [place] [address] Nov, [facility] [address] [id number] [place] [address] Oct, [facility] [place] [facility] [address] [id number] [place] [address] Sep, [facility] [place] [facility] [address] [id number] [place] [address] Sep, [facility] [place] [facility] [address] [id number] [place] [address] Sep, [facility] [place] [facility] [address] [id number] [place] [address] Aug, [facility] [place] [facility] [address] [id number] [place] [address] Aug, [facility] [place] [facility] [address] [id number] [place] [address] Aug, [facility] [place] [facility] [address] [id number] [place] [address] Jul, [facility] [place] [facility] [address] [facility] [id number] [place] [address] Jul, [facility] [place] [facility] [address] [facility] [id number] [place] [address] Jun, [facility] [place] [facility] [address] [id number] [place] [address] Jun, [facility] [place] [facility] [address] [id number] [place] [address] Jun, [facility] [place] [facility] [address] [id number] [place] [address] May, [facility] [place] [facility] [address] [id number] [place] [address] May, [facility] [place] [facility] [address] [id number] [place] [address] May, [facility] [address] [facility] [id number] [place] [address] May, [facility] [address] [facility] [id number], [place] [address] May, [facility] [address] [facility] [id number], [place] [address] Feb, [facility] [address] [facility] [id number], [place] [address] Nov, [facility] [address] [facility] [id number], [place] [address] Oct, IMMUNIZATIONS No Known Immunizations SOCIAL HISTORY Never Assessed REASON FOR VISIT EMR-[facility] [place] OF CARE VITAL SIGNS MEDICATIONS Unknown Medications RESULTS No Results PROCEDURES No Known procedures INSTRUCTIONS MEDICATIONS ADMINISTERED No Known Medications MEDICAL (GENERAL) HISTORY Type Description Date Medical History hypertension Medical History hyperlipidemia Medical History type II diabetes Medical History Arthritis-knees and hips Medical History stroke-05/2011 Medical History 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 Yu Surgical History dilatation and curettage 03/2000 Surgical History tubal ligation 1979 Surgical History right mastectomy 05/29/2018 Surgical History cholecystectomy 05/29/2018 Hospitalization History Via [facility] admit for stroke 05/2011 Hospitalization History Via [facility] for elevated blood sugars 09/2010 Hospitalization History surgery and RT mastectomy 05/29/2018
--- OUTSIDE RECORDS SUMMARY | 2019-01-08 01:44 | XMS REPORT ---
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 Active 36822543 Problem Type 2 diabetes mellitus with diabetic neuropathy E11.40 Active 85387021 Problem Constipation K59.00 Active 82285839 Problem Essential hypertension I10 Active 37441679 Problem 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, unspecified estrogen receptor status, unspecified site of breast C50.911 Active 359699091 Problem History of CVA (cerebrovascular accident) Z86.73 Active 371387996 Problem History of renal failure Z87.448 Active 611370215 Problem Osteoarthritis of right knee M17.9 Active 923929990 Problem Chronic idiopathic constipation K59.04 Active 68416618 Problem Other obesity due to excess calories E66.09 Active 569501407 ALLERGIES No Information ENCOUNTERS Encounter Location Date Diagnosis [facility] [id number] [place] [address] Mar, [facility] [id number] [place] [address] December, [facility] [id number] [place] [address] Nov, Acute bronchitis, unspecified organism J20.9 [facility] [address] [address] Nov, Encounter for Medicare annual wellness exam Z00.00 and 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, unspecified estrogen receptor status, unspecified site of breast C50.911 [facility] [id number] [place] [address] Oct, [facility] [id number] [place] [address] Oct, [facility] [id number] [place] [address] Oct, [facility] [id number] [place] [address] Oct, [facility] [id number] [place] [address] Sep, History of CVA (cerebrovascular accident) Z86.73 ; Essential hypertension I10 and Type 2 diabetes mellitus with diabetic neuropathy E11.40 [facility] [id number] [place] [address] 14 Sep, 2018 [facility] [id number] [place] [address] Sep, Type 2 diabetes mellitus with diabetic neuropathy E11.40 ; Encounter for immunization Z23 ; History of CVA (cerebrovascular accident) Z86.73 and Essential hypertension I10 [facility] [id number] [place] [address] Aug, Essential hypertension I10 [facility] [id number] [place] [address] Aug, [facility] [id number] [place] [address] Aug, [facility] [address] [place] [address] Aug, Abdominal pain R10.9 and Constipation K59.00 [facility] [id number] [place] [address] Jul, [facility] [id number] [place] [address] Jul, [facility] [id number] [place] [address] Jun, [facility] [address] [address] Jun, Essential hypertension I10 [facility] [address] [place] [address] Jun, Type 2 diabetes mellitus with diabetic neuropathy E11.40 and Mixed hyperlipidemia E78.2 [facility] [id number] [place] [address] Jun, Type 2 diabetes mellitus with diabetic neuropathy E11.40 ; Mixed hyperlipidemia E78.2 and Essential hypertension I10 [facility] [address] [address] May, [facility] [address] [place] [address] May, [facility] [address] [place] [address] Mar, Essential hypertension I10 and Type 2 diabetes mellitus with diabetic neuropathy E11.40 [facility] [address] [address] Mar, [facility] [address] [place] [address] Mar, Essential hypertension I10 [facility] [address] [address] Mar, Type 2 diabetes mellitus with diabetic neuropathy E11.40 [facility] [id number] [id number] Feb, Dental caries K02.9 [facility] [address] [address] Feb, [facility] [address], [place] [address] Feb, Type 2 diabetes mellitus with diabetic neuropathy E11.40 ; Essential hypertension I10 ; Mixed hyperlipidemia E78.2 ; History of CVA (cerebrovascular accident) Z86.73 ; Other obesity due to excess calories E66.09 and Body mass index (BMI) of 31.0-31.9 in adult Z68.31 [facility] [id number] [place] [phone] 26 Jan, 2018 Dental examination Z01.20 [facility] [address] [place] [address] 07 Jan, 2018 Type 2 diabetes mellitus with diabetic neuropathy E11.40 [facility] [id number] [place] [id number] Nov, Dental caries K02.9 [facility] [address] [address] Nov, Type 2 diabetes mellitus with diabetic neuropathy E11.40 [facility] [id number] [place] [address] Nov, Medicare annual wellness visit, initial Z00.00 ; Type 2 diabetes mellitus with diabetic neuropathy E11.40 ; 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 ; 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 ; Essential hypertension I10 ; Mixed hyperlipidemia E78.2 ; History of CVA (cerebrovascular accident) Z86.73 ; History of renal failure Z87.448 ; Osteoarthritis of right knee M17.9 and Encounter for immunization Z23 [facility] [address] [place] [phone] Nov, Dental examination Z01.20 [facility] [address] [place] [address] Oct, Type 2 diabetes mellitus with diabetic neuropathy E11.40 ; 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 ; 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 ; History of renal failure Z87.448 ; Mild single current episode of major depressive disorder F32.0 ; Essential hypertension I10 ; Mixed hyperlipidemia E78.2 and Chronic idiopathic constipation K59.04 [facility] [address], [place] [address] Oct, Type 2 diabetes mellitus with diabetic neuropathy E11.40 ; Dental caries extending into pulp K02.9 ; Nausea and vomiting, intractability of vomiting not specified, unspecified vomiting type R11.2 and Chronic idiopathic constipation K59.04 [address] [facility] [id number] [place] [address] Oct, Type 2 diabetes mellitus with diabetic neuropathy E11.40 [facility] [id number] [place] [address] Aug, [facility] [id number] [place] [address] Jul, Type 2 diabetes mellitus with diabetic neuropathy E11.40 [facility] [address] [address] Jul, Muscle spasm of back M62.830 [facility] [id number] [place] [address] Jun, Type 2 diabetes mellitus with diabetic neuropathy E11.40 ; 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 ; [facility] C92.11 ; History of renal failure Z87.448 and Mild single current episode of major depressive disorder F32.0 [facility] [facility] [id number] [place] [address] Mar, Type 2 diabetes mellitus with diabetic neuropathy E11.40 ; 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 ; [facility] in [facility] C92.11 ; History of renal failure Z87.448 ; Mild single current episode of major depressive disorder F32.0 ; Pain in right knee M25.561 and Encounter for immunization Z23 [facility] [facility] [id number] [place] [address] Feb, Bloody discharge from right nipple N64.52 [facility] [id number] [place] [address] Feb, [facility] [id number] [place] [address] Feb, [address] [place] [address] [address] December, Type 2 diabetes mellitus with diabetic neuropathy E11.40 [facility] [id number] [place] [address] December, Type 2 diabetes mellitus with diabetic neuropathy E11.40 ; senior care current use of insulin Z79.4 ; [facility] C92.11 ; History of renal failure Z87.448 ; Mild single current episode of major depressive disorder F32.0 and Pain in right knee M25.561 [address] [address], [place] [address] Nov, Type 2 diabetes mellitus with diabetic neuropathy E11.40 ; senior care current use of insulin Z79.4 ; Chronic myeloid leukemia in [facility] C92.11 ; History of renal failure Z87.448 ; Mild single current episode of major depressive disorder F32.0 and Pain in right knee M25.561 [facility] [facility] [id number] [place] [address] 16 Sep, 2016 Osteoarthritis of right knee M17.9 [address] [facility] [address] [place] [address] 08 Sep, 2016 Type 2 diabetes mellitus with diabetic neuropathy E11.40 ; 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 ; Chronic myeloid leukemia in [facility] C92.11 ; History of renal failure Z87.448 ; Mild single current episode of major depressive disorder F32.0 and Pain in right knee M25.561 [address] [address] [place] [address] Aug, Type 2 diabetes mellitus with diabetic neuropathy E11.40 [address] [facility] [address] [place] [address] Jul, Type 2 diabetes mellitus with diabetic neuropathy E11.40 ; 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 ; [facility] in [facility] C92.11 ; History of renal failure Z87.448 and Mild single current episode of major depressive disorder F32.0 [address] [facility] [address], [place] [address] Jun, [address] [id number] [place] [address] May, Type 2 diabetes mellitus with diabetic neuropathy E11.40 [facility] [id number] [place] [address] 24 May, 2016 Tendonitis M77.9 [place] [facility] [id number] [place] [address] 04 May, 2016 Type 2 diabetes mellitus with diabetic neuropathy E11.40 ; 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 ; [facility] in [facility] C92.11 ; History of renal failure Z87.448 and Mild single current episode of major depressive disorder F32.0 [address] [address] [place] [address] Apr, Type 2 diabetes mellitus with diabetic neuropathy E11.40 [facility] [facility] [id number] [place] [address] 14 Apr, 2016 Type 2 diabetes mellitus with diabetic neuropathy E11.40 ; senior care current use of insulin Z79.4 ; 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 ; History of renal failure Z87.448 ; Mild single current episode of major depressive disorder F32.0 and Right foot pain M79.671 [address], [place] [address] Feb, History of renal failure Z87.448 [facility] [facility] [id number] [place] [address] Feb, Type 2 diabetes mellitus with diabetic neuropathy E11.40 ; 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 ; 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 ; History of renal failure Z87.448 and Mild single current episode of major depressive disorder F32.0 [address] [address], [place] [address] 07 Feb, 2016 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 [facility] [id number] [place] [address] Feb, Type 2 diabetes mellitus with diabetic neuropathy E11.40 ; 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 ; [facility] in [facility] C92.11 ; Essential hypertension I10 ; Mixed hyperlipidemia E78.2 ; History of CVA (cerebrovascular accident) Z86.73 ; History of renal failure Z87.448 and Mild single current episode of major depressive disorder F32.0 [id number] [place] [address] Jan, Type 2 diabetes mellitus with diabetic neuropathy E11.40 ; 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40 ; senior care current use of insulin Z79.4 ; Chronic myeloid leukemia in [facility] C92.11 ; Essential hypertension I10 ; Mixed hyperlipidemia E78.2 and History of CVA (cerebrovascular accident) Z86.[address] [address] Aug, Osteoarthritis of right knee M17.9 [id number] [place] [address] Aug, Pain in right knee M25.561 [address] [place] [address] Jul, [facility] [id number] [place] [address] Jun, [facility] [id number] [place] [address] Jun, Axillary lump, right R22.31 [address] [place] [address] [address] 04 Jun, 2015 Type 2 diabetes mellitus with diabetic neuropathy E11.40 ; Encounter for immunization Z23 ; senior care current use of insulin Z79.4 ; 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 ; Essential hypertension I10 ; Mixed hyperlipidemia E78.2 ; History of CVA (cerebrovascular accident) Z86.73 and Axillary lump, right R22.31 [address] [id number] [place] [address] Mar, Hyperlipidemia 272.4 [address] [address] [address] 14 Mar, 2015 Right knee pain 719.[address] [address] Mar, Rotator cuff impingement syndrome of left shoulder 726.10 [address] [place] [id number] [place] [address] Feb, [address] [id number] [place] [address] Feb, Chronic myeloid leukemia, without mention of having achieved remission 205.10 ; Essential hypertension, malignant 401.0 ; Unspecified hereditary and idiopathic peripheral neuropathy 356.9 ; Diabetes mellitus type 2, controlled, with complications 250.90 ; Hyperlipidemia 272.4 and Pain, joint, shoulder, left 719.41 [address] [id number] [place] [address] Jan, [address] [place] [address] 14 Nov, 2014 [facility] [place] [facility] [address] [id number] [place] [address] 13 Nov, 2014 [facility] [place] [facility] [address] [id number] [place] [address] Oct, [facility] [place] [facility] [address] [id number] [place] [address] Oct, [facility] [place] [facility] [address] [id number] [place] [address] Oct, [facility] [place] [facility] [address] [id number] [place] [address] Oct, [facility] [place] [facility] [address] [id number] [place] [address] Oct, [facility] [place] [facility] [address] [id number] [place] [address] Oct, [facility] [place] [facility] [address] [id number] [place] [address] Sep, [facility] [place] [facility] [address] [id number] [place] [address] Sep, [facility] [place] [facility] [address] [id number] [place] [address] Aug, [facility] [place] [facility] [address] [id number] [place] [address] Aug, [facility] [place] [facility] [address] [id number] [place] [address] Jul, [facility] [place] [facility] [address] [id number] [place] [address] Jul, [facility] [place] [facility] [address] [facility] [id number] [place] [address] Jul, [facility] [place] [facility] [address] [facility] [id number] [place] [address] Jul, [facility] [place] [facility] [address] [id number] [place] [address] Jul, [facility] [place] [facility] [address] [id number] [place] [address] Jul, [facility] [place] [facility] [address] [id number] [place] [address] Jul, [facility] [place] [facility] [address] [id number] [place] [address] Jul, [facility] [place] [facility] [address] [id number] [place] [address] Jul, [facility] [place] [facility] [address] [id number] [place] [address] May, [facility] [place] [facility] [address] [id number] [place] [address] May, [facility] [place] [facility] [address] [id number] [place] [address] Apr, [facility] [place] [facility] [address] [id number] [place] [address] Apr, [facility] [place] [facility] [address] [id number] [place] [address] Apr, [facility] [place] [facility] [address] [id number] [place] [address] Apr, [facility] [place] [facility] [address] [id number] [place] [address] Feb, [facility] [place] [facility] [address] [id number] [place] [address] Feb, [facility] [place] [facility] [address] [id number] [place] [address] Feb, [facility] [place] [facility] [address] [id number] [place] [address] Feb, [facility] [place] [facility] [address] [id number] [place] [address] Jan, [facility] [place] [facility] [address] [id number] [place] [address] Jan, [facility] [place] [facility] [address] [id number] [place] [address] Jan, [facility] [place] [facility] [address] [id number] [place] [address] Jan, [facility] [place] [facility] [address] [id number] [place] [address] Jan, [facility] [place] [facility] [address] [id number] [place] [address] Jan, [facility] [place] [facility] [address] [id number] [place] [address] December, [facility] [place] [facility] [address] [id number] [place] [address] December, [facility] [place] [facility] [address] [id number] [place] [address] December, [facility] [place] [facility] [address] [id number] [place] [address] December, [facility] [place] [facility] [address] [id number] [place] [address] Nov, [facility] [place] [facility] [address] [id number] [place] [address] Nov, [facility] [place] [facility] [address] [id number] [place] [address] Nov, [facility] [place] [facility] [address] [id number] [place] [address] Nov, [facility] [place] [facility] [address] [id number] [place] [address] Oct, [facility] [place] [facility] [address] [id number] [place] [address] Oct, [facility] [place] [facility] [address] [id number] [place] [address] Oct, [facility] [place] [facility] [address] [id number] [place] [address] Oct, [facility] [place] [facility] [address] [id number] [place] [address] Oct, [facility] [place] [facility] [address] [id number] [place] [address] Oct, [facility] [place] [facility] [address] [id number] [place] [address] Sep, [facility] [place] [facility] [address] [id number] [place] [address] Sep, [facility] [place] [facility] [address] [id number] [place] [address] Sep, [facility] [place] [facility] [address] [id number] [place] [address] Sep, [facility] [place] [facility] [address] [id number] [place] [address] Aug, [facility] [place] [facility] [address] [id number] [place] [address] Aug, [facility] [place] [facility] [address] [facility] [id number] [place] [address] Aug, [facility] [place] [facility] [address] [id number] [place] [address] Aug, [facility] [place] [facility] [address] [id number] [place] [address] Aug, [facility] [place] [facility] [address] [id number] [place] [address] Aug, [facility] [place] [facility] [address] [id number] [place] [address] Jul, [facility] [place] [facility] [address] [id number] [place] [address] Jul, [facility] [place] [facility] [address] [id number] [place] [address] Jul, [facility] [address] [id number] [place] [address] Jul, [facility] [place] [facility] [address] [id number] [place] [address] Jun, [facility] [place] [facility] [address] [id number] [place] [address] Jun, [facility] [place] [facility] [address] [id number] [place] [address] May, [facility] [place] [facility] [address] [id number] [place] [address] Feb, [facility] [address] [id number] [place] [address] Feb, [facility] [address] [id number] [place] [address] Feb, [facility] [address] [id number] [place] [address] Jan, [facility] [place] [facility] [address] [id number] [place] [address] Jan, [facility] [place] [facility] [address] [id number] [place] [address] Jan, [facility] [place] [facility] [address] [id number] [place] [address] December, [facility] [place] [facility] [address] [id number] [place] [address] December, [facility] [place] [facility] [address] [id number] [place] [address] December, [facility] [place] [facility] [address] [id number] [place] [address] Nov, [facility] [place] [facility] [address] [id number] [place] [address] 17 Nov, 2012 [facility] [address] [id number] [place] [address] 16 Nov, 2012 [facility] [place] [facility] [address] [id number] [place] [address] 15 Nov, 2012 [facility] [address] [id number] [place] [address] 10 Nov, 2012 [facility] [place] [facility] [address] [id number] [place] [address] 09 Nov, 2012 [facility] [address] [id number] [place] [address] 22 Oct, 2012 [facility] [address] [id number] [place] [address] 20 Oct, 2012 [facility] [address] [id number] [place] [address] Oct, [facility] [place] [facility] [address] [id number] [place] [address] 28 Aug, 2012 [facility] [address] [id number] [place] [address] Aug, [facility] [place] [facility] [address] [id number] [place] [address] Aug, [facility] [address] [id number] [place] [address] 14 Jul, 2012 [facility] [place] [facility] [address] [id number] [place] [address] 14 Jul, 2012 [facility] [place] [facility] [address] [id number] [place] [address] Jun, [facility] [place] [facility] [address] [id number] [place] [address] 28 Jun, 2012 [facility] [place] [facility] [address] [id number] [place] [address] Jun, [facility] [place] [facility] [address] [id number] [place] [address] Jun, [facility] [address] [id number] [place] [address] May, [facility] [place] [facility] [address] [id number] [place] [address] May, [facility] [address] [id number] [place] [address] Apr, [facility] [address] [id number] [place] [address] Apr, [facility] [address] [id number] [place] [address] Feb, [facility] [address] [id number] [place] [address] Feb, [facility] [address] [id number] [place] [address] Nov, [facility] [address] [id number] [place] [address] Oct, [facility] [address] [id number] [place] [address] Sep, [facility] [address] [id number] [place] [address] Sep, [facility] [address] [id number] [place] [address] Sep, [facility] [address] [id number] [place] [address] Aug, [facility] [place] [facility] [address] [id number] [place] [address] Aug, [facility] [address] [id number] [place] [address] Aug, [facility] [address] [id number] [place] [address] Jul, [facility] [address] [place] [address] Jul, [facility] [id number] [address] Jun, [facility] [id number] [place] [address] Jun, [facility] [id number] [address] Jun, [facility] [id number] [place] [address] May, [facility] [id number] [place] [address] May, [facility] [address] [place] [address] May, [facility] [address] [place] [address] May, [facility] [address] [place] [address] May, [facility] [address] [place] [address] Feb, [facility] [address] [place] [address] Nov, [facility] [id number] [address] Oct, IMMUNIZATIONS No Known Immunizations SOCIAL HISTORY Never Assessed REASON FOR VISIT EMR-[facility] PLAN OF CARE VITAL SIGNS MEDICATIONS Unknown Medications RESULTS No Results PROCEDURES No Known procedures INSTRUCTIONS MEDICATIONS ADMINISTERED No Known Medications MEDICAL (GENERAL) HISTORY Type Description Date Medical History hypertension Medical History hyperlipidemia Medical History type II diabetes Medical History Arthritis-knees and hips Medical History stroke-05/2011 Medical History 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 Yu Surgical History dilatation and curettage 03/2000 Surgical History tubal ligation 1979 Surgical History right mastectomy 05/29/2018 Surgical History cholecystectomy 05/29/2018 Hospitalization History [facility] admit for stroke 05/2011 Hospitalization History Via [facility] for elevated blood sugars 09/2010 Hospitalization History surgery and RT mastectomy 05/29/2018
--- OUTSIDE RECORDS SUMMARY | 2019-01-08 01:46 | XMS REPORT ---
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 Active 23886126 Problem Type 2 diabetes mellitus with diabetic neuropathy E11.40 Active 54263350 Problem Constipation K59.00 Active 02268389 Problem Essential hypertension I10 Active 15984055 Problem 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, unspecified estrogen receptor status, unspecified site of breast C50.911 Active 555907370 Problem History of CVA (cerebrovascular accident) Z86.73 Active 412406071 Problem History of renal failure Z87.448 Active 785734028 Problem Osteoarthritis of right knee M17.9 Active 232150374 Problem Chronic idiopathic constipation K59.04 Active 80057811 Problem Other obesity due to excess calories E66.09 Active 096424242 ALLERGIES No Information ENCOUNTERS Encounter Location Date Diagnosis [place] [id number], [place] [address] Mar, [facility] [address], [place] [address] December, [place] [id number] [place] [address] Nov, Encounter for Medicare annual wellness exam Z00.00 and 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, unspecified estrogen receptor status, unspecified site of breast C50.911 [place] [address] [id number] [address] Oct, [place] [address] [place] [id number] [place] [address] Oct, [facility] [address] [address] Oct, [facility] [id number] [place] [address] Oct, [facility] [address] [address] 20 Sep, 2018 History of CVA (cerebrovascular accident) Z86.73 ; Essential hypertension I10 and Type 2 diabetes mellitus with diabetic neuropathy E11.40 [facility] [address] [address] 14 Sep, 2018 [facility] [id number] [place] [address] Sep, Type 2 diabetes mellitus with diabetic neuropathy E11.40 ; Encounter for immunization Z23 ; History of CVA (cerebrovascular accident) Z86.73 and Essential hypertension I10 [facility] [address] [id number] [place] [address] Aug, Essential hypertension I10 [facility] [address] [place] [id number] [place] [address] Aug, [facility] [id number] [place] [address] Aug, [facility] [id number] [place] [address] Aug, Abdominal pain R10.9 and Constipation K59.00 [facility] [id number] [place] [address] Jul, [facility] [id number] [place] [address] Jul, [facility] [id number] [place] [address] Jun, [facility] [address], [place] [address] 16 Jun, 2018 Essential hypertension I10 [facility] [address] [id number] [place] [address] 14 Jun, 2018 Type 2 diabetes mellitus with diabetic neuropathy E11.40 and Mixed hyperlipidemia E78.2 [facility] [id number] [place] [address] Jun, Type 2 diabetes mellitus with diabetic neuropathy E11.40 ; Mixed hyperlipidemia E78.2 and Essential hypertension I10 [facility] [address], [place] [address] May, [facility] [id number] [place] [address] May, [facility] [id number] [place] [address] Mar, Essential hypertension I10 and Type 2 diabetes mellitus with diabetic neuropathy E11.40 [facility] [address] [address] Mar, [facility] [id number] [place] [address] Mar, Essential hypertension I10 [facility] [address], [place] [address] Mar, Type 2 diabetes mellitus with diabetic neuropathy E11.40 [facility] [address] [id number] Feb, Dental caries K02.9 [facility] [address], [place] [address] Feb, [facility] [address] [id number] [place] [address] Feb, Type 2 diabetes mellitus with diabetic neuropathy E11.40 ; Essential hypertension I10 ; Mixed hyperlipidemia E78.2 ; History of CVA (cerebrovascular accident) Z86.73 ; Other obesity due to excess calories E66.09 and Body mass index (BMI) of 31.0-31.9 in adult Z68.31 [facility] [address] [place] [phone] Jan, Dental examination Z01.20 [facility] [address], [place] [address] 07 Jan, 2018 Type 2 diabetes mellitus with diabetic neuropathy E11.40 [facility] [address] [id number] [place] [id number] Nov, Dental caries K02.9 [facility] [id number] [place] [address] 16 Nov, 2017 Type 2 diabetes mellitus with diabetic neuropathy E11.40 [facility] [id number] [place] [address] Nov, Medicare annual wellness visit, initial Z00.00 ; Type 2 diabetes mellitus with diabetic neuropathy E11.40 ; 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 ; 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 ; Essential hypertension I10 ; Mixed hyperlipidemia E78.2 ; History of CVA (cerebrovascular accident) Z86.73 ; History of renal failure Z87.448 ; Osteoarthritis of right knee M17.9 and Encounter for immunization Z23 [facility] [address] [place] [id number] Nov, Dental examination Z01.20 [facility] [address] [place] [address] Oct, Type 2 diabetes mellitus with diabetic neuropathy E11.40 ; 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 ; 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 ; History of renal failure Z87.448 ; Mild single current episode of major depressive disorder F32.0 ; Essential hypertension I10 ; Mixed hyperlipidemia E78.2 and Chronic idiopathic constipation K59.04 [facility] [address], [place] [address] 15 Oct, 2017 Type 2 diabetes mellitus with diabetic neuropathy E11.40 ; Dental caries extending into pulp K02.9 ; Nausea and vomiting, intractability of vomiting not specified, unspecified vomiting type R11.2 and Chronic idiopathic constipation K59.04 [place] [address] [place] [id number] [place] [address] Oct, Type 2 diabetes mellitus with diabetic neuropathy E11.40 [facility] [address] [place] [address] [id number] [place] [address] Aug, [place] [address] [address] Jul, Type 2 diabetes mellitus with diabetic neuropathy E11.40 [facility] [address] [address] Jul, Muscle spasm of back M62.830 [place] [address] [address] Jun, Type 2 diabetes mellitus with diabetic neuropathy E11.40 ; 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 ; 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 ; History of renal failure Z87.448 and Mild single current episode of major depressive disorder F32.0 [place] [address] [address] Mar, Type 2 diabetes mellitus with diabetic neuropathy E11.40 ; 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 ; [facility] C92.11 ; History of renal failure Z87.448 ; Mild single current episode of major depressive disorder F32.0 ; Pain in right knee M25.561 and Encounter for immunization Z23 [place] [address] [place] [id number] [place] [address] Feb, Bloody discharge from right nipple N64.52 [place] [address] [address] Feb, [place] [address] [place] [id number] [place] [address] Feb, [place] [address] [address] December, Type 2 diabetes mellitus with diabetic neuropathy E11.40 [place] [address] [place] [address] December, Type 2 diabetes mellitus with diabetic neuropathy E11.40 ; 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 ; Chronic myeloid leukemia in [facility] C92.11 ; History of renal failure Z87.448 ; Mild single current episode of major depressive disorder F32.0 and Pain in right knee M25.561 [place] [address] [place] [address] Nov, Type 2 diabetes mellitus with diabetic neuropathy E11.40 ; 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 ; Chronic myeloid leukemia in [facility] C92.11 ; History of renal failure Z87.448 ; Mild single current episode of major depressive disorder F32.0 and Pain in right knee M25.561 [place] [address] [place] [id number] [place] [address] 16 Sep, 2016 Osteoarthritis of right knee M17.9 [place] [address] [place] [address] 08 Sep, 2016 Type 2 diabetes mellitus with diabetic neuropathy E11.40 ; 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 ; Chronic myeloid leukemia in [facility] C92.11 ; History of renal failure Z87.448 ; Mild single current episode of major depressive disorder F32.0 and Pain in right knee M25.561 [place] [address], [place] [address] Aug, Type 2 diabetes mellitus with diabetic neuropathy E11.40 [place] [address], [place] [address] Jul, Type 2 diabetes mellitus with diabetic neuropathy E11.40 ; [facility] current use of insulin Z79.4 ; Chronic myeloid leukemia in [facility] C92.11 ; History of renal failure Z87.448 and Mild single current episode of major depressive disorder F32.0 [place] [address] [place] [address] Jun, [place] [address] [place] [address] May, Type 2 diabetes mellitus with diabetic neuropathy E11.40 [place] [address] [place] [address] 24 May, 2016 Tendonitis M77.9 [place] [address] [place] [id number] [place] [address] 04 May, 2016 Type 2 diabetes mellitus with diabetic neuropathy E11.40 ; [facility] current use of insulin Z79.4 ; Chronic myeloid leukemia in [facility] C92.11 ; History of renal failure Z87.448 and Mild single current episode of major depressive disorder F32.0 [place] [address] [place] [id number] [place] [address] 28 Apr, 2016 Type 2 diabetes mellitus with diabetic neuropathy E11.40 [place] [address] [place] [id number] [place] [address] 14 Apr, 2016 Type 2 diabetes mellitus with diabetic neuropathy E11.40 ; [facility] current use of insulin Z79.4 ; Chronic myeloid leukemia in [facility] C92.11 ; History of renal failure Z87.448 ; Mild single current episode of major depressive disorder F32.0 and Right foot pain M79.671 [place] [address] [place] [address] Feb, History of renal failure Z87.448 [place] [address] [place] [address] Feb, Type 2 diabetes mellitus with diabetic neuropathy E11.40 ; 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 ; Chronic myeloid leukemia in [facility] C92.11 ; History of renal failure Z87.448 and Mild single current episode of major depressive disorder F32.0 [place] [address], [place] [address] 07 Feb, 2016 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 [place] [address] [place] [id number] [place] [address] Feb, Type 2 diabetes mellitus with diabetic neuropathy E11.40 ; [facility] current use of insulin Z79.4 ; 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 ; Essential hypertension I10 ; Mixed hyperlipidemia E78.2 ; History of CVA (cerebrovascular accident) Z86.73 ; History of renal failure Z87.448 and Mild single current episode of major depressive disorder F32.0 [place] [address] [place] [id number] [place] [address] Jan, Type 2 diabetes mellitus with diabetic neuropathy E11.40 ; 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 ; Chronic myeloid leukemia in [facility] C92.11 ; Essential hypertension I10 ; Mixed hyperlipidemia E78.2 ; History of CVA (cerebrovascular accident) Z86.73 and History of renal failure Z87.448 [place] [address] [place] [id number] [place] [address] Jan, [facility] [address] [place] [id number] [place] [address] Jan, Cellulitis of hand, left L03.114 [place] [address] [place] [id number] [place] [address] Nov, Osteoarthritis of right knee M17.9 [place] [address] [place] [id number] [place] [address] Sep, Type 2 diabetes mellitus with diabetic neuropathy E11.40 ; [facility] current use of insulin Z79.4 ; Chronic myeloid leukemia in [facility] C92.11 ; Essential hypertension I10 ; Mixed hyperlipidemia E78.2 and History of CVA (cerebrovascular accident) Z86.73 [place] [address] [place] [id number] [place] [address] Aug, Osteoarthritis of right knee M17.9 [facility] [address] [place] [id number] [place] [address] Aug, Pain in right knee M25.561 [place] [address] [address] Jul, [place] [address] [place] [id number] [place] [address] Jun, [place] [address] [address] Jun, Axillary lump, right R22.31 [place] [address] [place] [id number] [place] [address] Jun, Type 2 diabetes mellitus with diabetic neuropathy E11.40 ; Encounter for immunization Z23 ; [facility] current use of insulin Z79.4 ; 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 ; Essential hypertension I10 ; Mixed hyperlipidemia E78.2 ; History of CVA (cerebrovascular accident) Z86.73 and Axillary lump, right R22.31 [place] [address] [place] [id number] [place] [address] Mar, Hyperlipidemia 272.[address] [address] Mar, Right knee pain 719.[address] [address] Mar, Rotator cuff impingement syndrome of left shoulder 726.10 [place] [address] [place] [id number] [place] [address] Feb, [place] [address] [address] Feb, Chronic myeloid leukemia, without mention of having achieved remission 205.10 ; Essential hypertension, malignant 401.0 ; Unspecified hereditary and idiopathic peripheral neuropathy 356.9 ; Diabetes mellitus type 2, controlled, with complications 250.90 ; Hyperlipidemia 272.4 and Pain, joint, shoulder, left 719.41 [place] [address] [place] [id number] [place] [address] Jan, [place] [address] [place] [id number] [place] [address] Nov, [facility] [place] [facility] [address] [id number] [place] [address] Nov, [facility] [place] [facility] [address] [id number] [place] [address] Oct, [facility] [place] [facility] [address] [id number] [place] [address] Oct, [facility] [place] [facility] [address] [id number] [place] [address] Oct, [facility] [place] [facility] [address] [id number] [place] [address] Oct, [facility] [place] [facility] [address] [id number] [place] [address] Oct, [facility] [place] [facility] [address] [id number] [place] [address] Oct, [facility] [place] [facility] [address] [id number] [place] [address] Sep, [facility] [place] [facility] [address] [id number] [place] [address] Sep, [facility] [place] [facility] [address] [id number] [place] [address] Aug, [facility] [place] [facility] [address] [id number] [place] [address] Aug, [facility] [place] [facility] [address] [id number] [place] [address] Jul, [facility] [place] [facility] [address] [id number] [place] [address] Jul, [facility] [place] [facility] [address] [id number] [place] [address] Jul, [facility] [place] [facility] [address] [id number] [place] [address] Jul, [facility] [place] [facility] [address] [id number] [place] [address] Jul, [facility] [place] [facility] [address] [id number] [place] [address] Jul, [facility] [place] [facility] [address] [id number] [place] [address] Jul, [facility] [place] [facility] [address] [id number] [place] [address] Jul, [facility] [place] [facility] [address] [id number] [place] [address] Jul, [facility] [place] [facility] [address] [id number] [place] [address] May, [facility] [place] [facility] [address] [id number] [place] [address] May, [facility] [place] [facility] [address] [id number] [place] [address] Apr, [facility] [place] [facility] [address] [id number] [place] [address] Apr, [facility] [place] [facility] [address] [id number] [place] [address] Apr, [facility] [place] [facility] [address] [id number] [place] [address] Apr, [facility] [place] [facility] [address] [id number] [place] [address] Feb, [facility] [place] [facility] [address] [id number], [place] [address] Feb, [facility] [place] [facility] [address] [id number] [place] [address] Feb, [facility] [place] [facility] [address] [id number] [place] [address] Feb, [facility] [place] [facility] [address] [id number] [place] [address] Jan, [facility] [place] [facility] [address] [id number] [place] [address] Jan, [facility] [address] [id number] [place] [address] Jan, [facility] [place] [facility] [address] [id number] [place] [address] Jan, [facility] [address] [id number] [place] [address] Jan, [facility] [place] [facility] [address] [id number] [place] [address] Jan, [facility] [place] [facility] [address] [id number] [place] [address] December, [facility] [place] [facility] [address] [id number] [place] [address] December, [facility] [address] [id number] [place] [address] December, [facility] [address] [id number] [place] [address] December, [facility] [place] [facility] [address] [id number] [place] [address] Nov, [facility] [address] [id number] [place] [address] Nov, [facility] [place] [facility] [address] [id number] [place] [address] Nov, [facility] [place] [facility] [address] [id number] [place] [address] Nov, [facility] [place] [facility] [address] [id number] [place] [address] Oct, [facility] [place] [facility] [address] [id number] [place] [address] Oct, [facility] [place] [facility] [address] [id number] [place] [address] Oct, [facility] [place] [facility] [address] [id number] [place] [address] Oct, [facility] [place] [facility] [address] [id number] [place] [address] Oct, [facility] [place] [facility] [address] [id number] [place] [address] Oct, [facility] [place] [facility] [address] [id number] [place] [address] Sep, [facility] [place] [facility] [address] [id number] [place] [address] Sep, [facility] [place] [facility] [address] [id number] [place] [address] Sep, [facility] [place] [facility] [address] [id number] [place] [address] Sep, [facility] [place] [facility] [address] [id number] [place] [address] Aug, [facility] [place] [facility] [address] [id number] [place] [address] Aug, [facility] [place] [facility] [address] [id number] [place] [address] Aug, [facility] [place] [facility] [address] [id number] [place] [address] Aug, [facility] [place] [facility] [address] [id number], [place] [address] Aug, [facility] [place] [facility] [address] [id number] [place] [address] Aug, [facility] [place] [facility] [address] [id number] [place] [address] Jul, [facility] [place] [facility] [address] [id number] [place] [address] Jul, [facility] [place] [facility] [address] [id number] [place] [address] Jul, [facility] [address] [id number] [place] [address] Jul, [facility] [place] [facility] [address] [id number] [place] [address] Jun, [facility] [address] [id number] [place] [address] Jun, [facility] [place] [facility] [address] [id number] [place] [address] May, [facility] [address] [id number] [place] [address] Feb, [facility] [place] [facility] [address] [id number] [place] [address] Feb, [facility] [address] [id number] [place] [address] Feb, [facility] [place] [facility] [address] [id number] [place] [address] Jan, [facility] [place] [facility] [address] [id number] [place] [address] Jan, [facility] [place] [facility] [address] [id number] [place] [address] Jan, [facility] [place] [facility] [address] [id number] [place] [id number] December, [facility] [place] [facility] [address] [id number] [place] [id number] December, [facility] [place] [facility] [address] [id number] [place] [address] December, [facility] [place] [facility] [address] [id number] [place] [id number] Nov, [facility] [place] [facility] [address] [id number] [place] [id number] Nov, [facility] [place] [facility] [address] [id number] [place] [id number] 16 Nov, 2012 [facility] [address] [id number] [place] [id number] 15 Nov, 2012 [facility] [address] [id number] [place] [id number] 10 Nov, 2012 [facility] [address] [id number] [place] [id number] 09 Nov, 2012 [facility] [address] [id number] [place] [address] 22 Oct, 2012 [facility] [address] [id number] [place] [id number] 20 Oct, 2012 [facility] [address] [id number] [place] [id number] 13 Oct, 2012 [facility] [address] [id number] [place] [id number] 28 Aug, 2012 [facility] [address] [id number] [place] [id number] Aug, [facility] [address] [id number] [place] [id number] 17 Aug, 2012 [facility] [address] [id number] [place] [address] 14 Jul, 2012 [facility] [address] [id number] [place] [id number] 14 Jul, 2012 [facility] [place] [facility] [address] [id number] [place] [address] Jun, [facility] [place] [facility] [address] [id number] [place] [address] Jun, [facility] [place] [facility] [address] [id number] [place] [address] Jun, [facility] [place] [facility] [address] [id number] [place] [address] Jun, [facility] [place] [facility] [address] [id number] [place] [address] May, [facility] [place] [facility] [address] [id number] [place] [address] May, [facility] [place] [facility] [address] [id number] [place] [id number] 05 Apr, 2012 [facility] [place] [facility] [address] [id number] [place] [address] Apr, [facility] [place] [facility] [address] [id number] [place] [address] Feb, [facility] [place] [facility] [address] [id number] [place] [address] Feb, [facility] [place] [facility] [address] [id number] [place] [address] Nov, [facility] [place] [facility] [address] [id number] [place] [address] Oct, [facility] [place] [facility] [address] [id number] [place] [address] Sep, [facility] [place] [facility] [address] [id number] [place] [address] Sep, [facility] [place] [facility] [address] [id number] [place] [address] Sep, [facility] [place] [facility] [address] [id number] [place] [address] Aug, [facility] [place] [facility] [address] [id number] [place] [address] Aug, [facility] [place] [facility] [address] [id number] [place] [address] Aug, [facility] [place] [facility] [address] [id number] [place] [address] Jul, [facility] [place] [facility] [id number] [place] [address] Jul, [facility] [address] [place] [address] Jun, [facility] [id number] [place] [address] Jun, [facility] [address] [place] [address] Jun, [facility] [address] [place] [address] May, [facility] [id number] [place] [address] May, [facility] [address] [place] [address] May, [facility] [id number] [place] [address] May, [facility] [address] [place] [address] May, [facility] [address] [place] [address] Feb, [facility] [address] [place] [address] Nov, [facility] [address] [place] [address] Oct, IMMUNIZATIONS No Known Immunizations SOCIAL HISTORY Never Assessed REASON FOR VISIT Requests return call PLAN OF CARE VITAL SIGNS MEDICATIONS Unknown Medications RESULTS No Results PROCEDURES No Known procedures INSTRUCTIONS MEDICATIONS ADMINISTERED No Known Medications MEDICAL (GENERAL) HISTORY Type Description Date Medical History hypertension Medical History hyperlipidemia Medical History type II diabetes Medical History Arthritis-knees and hips Medical History stroke-05/2011 Medical History leukemia (CML)--dx November 2012--Sees [facility] Medical History Dysphagia, unspecified Medical History Unspecified hereditary and idiopathic peripheral neuropathy Medical History 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 Yu Surgical History dilatation and curettage 03/2000 Surgical History tubal ligation 1979 Surgical History right mastectomy 05/29/2018 Surgical History cholecystectomy 05/29/2018 Hospitalization History [facility] admit for stroke 05/2011 Hospitalization History [facility] for elevated blood sugars 09/2010 Hospitalization History surgery and RT mastectomy 05/29/2018
--- OUTSIDE RECORDS SUMMARY | 2019-01-08 01:46 | XMS REPORT ---
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 610178104 Problem Mixed hyperlipidemia E78.2 Active 345124163 Problem 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 Active 94354903 Problem Type 2 diabetes mellitus with diabetic neuropathy E11.40 Active 14766907 Problem Constipation K59.00 Active 47510399 Problem Essential hypertension I10 Active 15166558 Problem 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, unspecified estrogen receptor status, unspecified site of breast C50.911 Active 397842500 Problem History of CVA (cerebrovascular accident) Z86.73 Active 425239700 Problem History of renal failure Z87.448 Active 368079292 Problem Osteoarthritis of right knee M17.9 Active 733350451 Problem Chronic idiopathic constipation K59.04 Active 40886849 Problem Other obesity due to excess calories E66.09 Active 053891918 ALLERGIES No Information ENCOUNTERS Encounter Location Date Diagnosis [place] [id number] [place] [address] Mar, [place] [address] [place] [id number] [place] [address] December, [place] [address] [place] [id number] [place] [address] Nov, Encounter for Medicare annual wellness exam Z00.00 and 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 [address] [place] [address] Oct, [facility] [address] [address] [id number] [place] [address] Oct, [facility] [address], [place] [address] Oct, [facility] [address] [id number] [place] [address] 07 Oct, 2018 [facility] [address] [address] [id number] [place] [address] 20 Sep, 2018 History of CVA (cerebrovascular accident) Z86.73 ; Essential hypertension I10 and Type 2 diabetes mellitus with diabetic neuropathy E11.40 [facility] [address] [id number] [place] [address] 14 Sep, 2018 [facility] [id number] [place] [address] 13 Sep, 2018 Type 2 diabetes mellitus with diabetic neuropathy E11.40 ; Encounter for immunization Z23 ; History of CVA (cerebrovascular accident) Z86.73 and Essential hypertension I10 [facility] [address] [place] [id number] [place] [address] Aug, Essential hypertension I10 [facility] [address] [address] [id number] [place] [address] Aug, [facility] [address] [address] [id number] [place] [address] Aug, [facility] [address] [address] Aug, Abdominal pain R10.9 and Constipation K59.00 [facility] [address], [place] [address] Jul, [facility] [address] [place] [id number] [place] [address] Jul, [facility] [address] [address] [id number] [place] [address] Jun, [facility] [id number] [address] Jun, Essential hypertension I10 [facility] [address], [place] [address] 14 Jun, 2018 Type 2 diabetes mellitus with diabetic neuropathy E11.40 and Mixed hyperlipidemia E78.2 [facility] [address] [place] [address] [id number] [place] [address] Jun, Type 2 diabetes mellitus with diabetic neuropathy E11.40 ; Mixed hyperlipidemia E78.2 and Essential hypertension I10 [facility] [address] [address] [id number] [place] [address] May, [facility] [address] [address] [id number] [place] [address] May, [facility] [address] [place] [address] [id number] [place] [address] Mar, Essential hypertension I10 and Type 2 diabetes mellitus with diabetic neuropathy E11.40 [facility] [address] [id number] [place] [address] Mar, [facility] [address] [id number] [place] [address] Mar, Essential hypertension I10 [facility] [address] [place] [id number] [place] [address] Mar, Type 2 diabetes mellitus with diabetic neuropathy E11.40 [facility] [address] [id number] Feb, Dental caries K02.9 [facility] [address] [place] [id number] [place] [address] Feb, [facility] [address] [place] [id number] [place] [address] Feb, Type 2 diabetes mellitus with diabetic neuropathy E11.40 ; Essential hypertension I10 ; Mixed hyperlipidemia E78.2 ; History of CVA (cerebrovascular accident) Z86.73 ; Other obesity due to excess calories E66.09 and Body mass index (BMI) of 31.0-31.9 in adult Z68.31 [facility] [address] [place] [id number] 26 Jan, 2018 Dental examination Z01.20 [facility] [address] [place] [id number] [place] [address] 07 Jan, 2018 Type 2 diabetes mellitus with diabetic neuropathy E11.40 [facility] [address] [place] [id number] [place] [id number] Nov, Dental caries K02.9 [facility] [address] [place] [id number] [place] [address] Nov, Type 2 diabetes mellitus with diabetic neuropathy E11.40 [facility] [address] [place] [id number] [place] [address] Nov, Medicare annual wellness visit, initial Z00.00 ; Type 2 diabetes mellitus with diabetic neuropathy E11.40 ; MCFP current use of insulin Z79.4 ; 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 ; Essential hypertension I10 ; Mixed hyperlipidemia E78.2 ; History of CVA (cerebrovascular accident) Z86.73 ; History of renal failure Z87.448 ; Osteoarthritis of right knee M17.9 and Encounter for immunization Z23 [facility] [address] [place] [id number] [place] [id number] Nov, Dental examination Z01.20 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 ; 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 ; History of renal failure Z87.448 ; Mild single current episode of major depressive disorder F32.0 ; Essential hypertension I10 ; Mixed hyperlipidemia E78.2 and Chronic idiopathic constipation K59.04 [facility] [address] [place] [id number] [place] [address] Oct, Type 2 diabetes mellitus with diabetic neuropathy E11.40 ; Dental caries extending into pulp K02.9 ; Nausea and vomiting, intractability of vomiting not specified, unspecified vomiting type R11.2 and Chronic idiopathic constipation K59.04 [place] [address], [place] [address] Oct, Type 2 diabetes mellitus with diabetic neuropathy E11.40 [facility] [address], [place] [address] Aug, [facility] [address], [place] [address] Jul, Type 2 diabetes mellitus with diabetic neuropathy E11.40 [facility] [address], [place] [address] Jul, Muscle spasm of back M62.830 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 [address] [address] Mar, Type 2 diabetes mellitus with diabetic neuropathy E11.40 ; MCFP current use of insulin Z79.4 ; [facility] C92.11 ; History of renal failure Z87.448 ; Mild single current episode of major depressive disorder F32.0 ; Pain in right knee M25.561 and Encounter for immunization Z23 [facility] [address], [place] [address] Feb, Bloody discharge from right nipple N64.52 [facility] [address], [place] [address] Feb, [facility] [address] [place] [id number] [place] [address] Feb, [facility] [address], [place] [address] December, Type 2 diabetes mellitus with diabetic neuropathy E11.40 [facility] [address], [place] [address] December, Type 2 diabetes mellitus with diabetic neuropathy E11.40 ; MCFP current use of insulin Z79.4 ; Chronic myeloid leukemia in [facility] C92.11 ; History of renal failure Z87.448 ; Mild single current episode of major depressive disorder F32.0 and Pain in right knee M25.561 [place] [address] [place] [address] Nov, Type 2 diabetes mellitus with diabetic neuropathy E11.40 ; MCFP current use of insulin Z79.4 ; [facility] C92.11 ; History of renal failure Z87.448 ; Mild single current episode of major depressive disorder F32.0 and Pain in right knee M25.561 [place] [address] [place] [address] 16 Sep, 2016 Osteoarthritis of right knee M17.9 [place] [address] [place] [id number] [place] [address] 08 Sep, 2016 Type 2 diabetes mellitus with diabetic neuropathy E11.40 ; MCFP current use of insulin Z79.4 ; Chronic myeloid leukemia in [facility] C92.11 ; History of renal failure Z87.448 ; Mild single current episode of major depressive disorder F32.0 and Pain in right knee M25.561 [place] [address], [place] [address] Aug, Type 2 diabetes mellitus with diabetic neuropathy E11.40 [place] [address] [place] [address] Jul, Type 2 diabetes mellitus with diabetic neuropathy E11.40 ; 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 [address], [place] [address] May, Tendonitis M77.9 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 ; Chronic myeloid leukemia in [facility] C92.11 ; History of renal failure Z87.448 and Mild single current episode of major depressive disorder F32.0 [place] [address] [address] Apr, Type 2 diabetes mellitus with diabetic neuropathy E11.40 [place] [address] [place] [address] 14 Apr, 2016 Type 2 diabetes mellitus with diabetic neuropathy E11.40 ; MCFP current use of insulin Z79.4 ; Chronic myeloid leukemia in [facility] C92.11 ; History of renal failure Z87.448 ; Mild single current episode of major depressive disorder F32.0 and Right foot pain M79.671 [place] [address] [place] [address] Feb, History of renal failure Z87.448 [place] [address], [place] [address] Feb, Type 2 diabetes mellitus with diabetic neuropathy E11.40 ; 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 ; Chronic myeloid leukemia in [facility] C92.11 ; History of renal failure Z87.448 and Mild single current episode of major depressive disorder F32.0 [place] [address], [place] [address] Feb, 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 [address] [place] [id number] [place] [address] Jan, Type 2 diabetes mellitus with diabetic neuropathy E11.40 ; [facility]FP current use of insulin Z79.4 ; Chronic myeloid leukemia in [facility] C92.11 ; Essential hypertension I10 ; Mixed hyperlipidemia E78.2 ; History of CVA (cerebrovascular accident) Z86.73 and History of renal failure Z87.448 [place] [address] [address] Jan, [facility] [address] [place] [id number] [place] [address] Jan, Cellulitis of hand, left L03.114 [place] [address] [address] Nov, Osteoarthritis of right knee M17.9 [place] [address] [address] Sep, Type 2 diabetes mellitus with diabetic neuropathy E11.40 ; 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 [address] [place] [id number] [place] [address] Jun, Axillary lump, right R22.31 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 ; 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 ; Essential hypertension I10 ; Mixed hyperlipidemia E78.2 ; History of CVA (cerebrovascular accident) Z86.73 and Axillary lump, right R22.31 [place] [address] [address] Mar, Hyperlipidemia 272.4 [place] [address] [address] Mar, Right knee pain 719.46 [place] [address] [address] Mar, Rotator cuff impingement syndrome of left shoulder 726.10 [place] [address] [place] [id number] [place] [address] Feb, [place] [address] [place] [id number] [place] [address] Feb, Chronic myeloid leukemia, without mention of having achieved remission 205.10 ; Essential hypertension, malignant 401.0 ; Unspecified hereditary and idiopathic peripheral neuropathy 356.9 ; Diabetes mellitus type 2, controlled, with complications 250.90 ; Hyperlipidemia 272.4 and Pain, joint, shoulder, left 719.41 [facility] [address] [place] [id number] [place] [address] Jan, [facility] [address] [address] Nov, [facility] [address] [place] [id number] [place] [address] Nov, [facility] [place] [facility] [address] [id number] [place] [address] Oct, [facility] [place] [facility] [address] [id number] [place] [address] Oct, [facility] [place] [facility] [address] [id number] [place] [address] Oct, 2014 [facility] [place] [facility] [address] [id number] [place] [address] Oct, [facility] [place] [facility] [address] [id number] [place] [address] Oct, [facility] [place] [facility] [address] [id number] [place] [address] Oct, [facility] [place] [facility] [address] [id number] [place] [address] Sep, [facility] [place] [facility] [address] [id number] [place] [address] Sep, [facility] [place] [facility] [address] [id number] [place] [address] Aug, [facility] [place] [facility] [address] [id number] [place] [address] Aug, [facility] [place] [facility] [address] [id number] [place] [address] Jul, [facility] [place] [facility] [address] [id number] [place] [address] Jul, [facility] [place] [facility] [address] [id number] [place] [address] Jul, [facility] [place] [facility] [address] [id number] [place] [address] Jul, [facility] [place] [facility] [address] [id number] [place] [address] Jul, [facility] [place] [facility] [address] [id number] [place] [address] Jul, [facility] [place] [facility] [address] [id number] [place] [address] Jul, [facility] [place] [facility] [address] [id number] [place] [address] Jul, [facility] [place] [facility] [address] [id number] [place] [address] Jul, [facility] [place] [facility] [address] [id number] [place] [address] May, [facility] [place] [facility] [address] [id number] [place] [address] May, [facility] [place] [facility] [address] [id number] [place] [address] Apr, [facility] [place] [facility] [address] [id number] [place] [address] Apr, [facility] [place] [facility] [address] [id number] [place] [address] Apr, [facility] [place] [facility] [address] [id number] [place] [address] Apr, [facility] [place] [facility] [address] [id number] [place] [address] Feb, [facility] [place] [facility] [address] [id number] [place] [address] Feb, [facility] [place] [facility] [address] [id number], [place] [address] Feb, [facility] [place] [facility] [address] [id number] [place] [address] Feb, [facility] [place] [facility] [address] [id number] [place] [address] Jan, [facility] [place] [facility] [address] [id number] [place] [address] Jan, [facility] [place] [facility] [address] [id number] [place] [address] Jan, [facility] [address] [id number] [place] [address] Jan, [facility] [address] [id number] [place] [address] Jan, [facility] [address] [id number] [place] [address] Jan, [facility] [address] [id number] [place] [address] December, [facility] [address] [id number] [place] [address] December, [facility] [address] [id number] [place] [address] December, [facility] [address] [id number] [place] [address] December, [facility] [address] [id number] [place] [address] Nov, [facility] [place] [facility] [address] [id number] [place] [address] Nov, [facility] [address] [id number] [place] [address] Nov, [facility] [place] [facility] [address] [id number] [place] [address] Nov, [facility] [place] [facility] [address] [id number] [place] [address] Oct, [facility] [place] [facility] [address] [id number] [place] [address] Oct, [facility] [place] [facility] [address] [id number] [place] [address] Oct, [facility] [place] [facility] [address] [id number] [place] [address] Oct, [facility] [place] [facility] [address] [id number] [place] [address] Oct, [facility] [place] [facility] [address] [id number] [place] [address] Oct, [facility] [place] [facility] [address] [id number] [place] [address] Sep, [facility] [place] [facility] [address] [id number] [place] [address] Sep, [facility] [place] [facility] [address] [id number] [place] [address] Sep, [facility] [place] [facility] [address] [id number] [place] [address] Sep, [facility] [place] [facility] [address] [id number] [place] [address] Aug, [facility] [place] [facility] [address] [id number] [place] [address] Aug, [facility] [place] [facility] [address] [id number] [place] [address] Aug, [facility] [place] [facility] [address] [id number] [place] [address] Aug, [facility] [place] [facility] [address] [id number] [place] [address] Aug, [facility] [place] [facility] [address] [id number], [place] [address] Aug, [facility] [place] [facility] [address] [id number] [place] [address] Jul, [facility] [place] [facility] [address] [id number] [place] [address] Jul, [facility] [place] [facility] [address] [id number] [place] [address] Jul, [facility] [place] [facility] [address] [id number] [place] [address] Jul, [facility] [address] [id number] [place] [address] Jun, [facility] [address] [id number] [place] [address] Jun, [facility] [address] [id number] [place] [address] May, [facility] [place] [facility] [address] [id number] [place] [address] Feb, [facility] [address] [id number] [place] [address] Feb, [facility] [address] [id number] [place] [address] Feb, [facility] [address] [id number] [place] [address] Jan, [facility] [address] [id number] [place] [address] Jan, [facility] [address] [id number] [place] [address] Jan, [facility] [address] [id number] [place] [address] December, [facility] [address] [id number] [place] [address] December, [facility] [place] [facility] [address] [id number] [place] [address] December, [facility] [place] [facility] [address] [id number] [place] [address] Nov, [facility] [place] [facility] [address] [id number] [place] [address] Nov, [facility] [place] [facility] [address] [id number] [place] [address] Nov, [facility] [place] [facility] [address] [id number] [place] [address] 15 Nov, 2012 [facility] [address] [id number] [place] [address] 10 Nov, 2012 [facility] [place] [facility] [address] [id number] [place] [address] 09 Nov, 2012 [facility] [address] [id number] [place] [address] 22 Oct, 2012 [facility] [address] [id number] [place] [address] 20 Oct, 2012 [facility] [place] [facility] [address] [id number] [place] [address] Oct, [facility] [address] [id number] [place] [address] 28 Aug, 2012 [facility] [address] [id number] [place] [address] Aug, [facility] [address] [id number] [place] [address] Aug, [facility] [address] [id number] [place] [address] 14 Jul, 2012 [facility] [address] [id number] [place] [address] Jul, [facility] [address] [id number] [place] [address] Jun, [facility] [place] [facility] [address] [id number] [place] [address] Jun, [facility] [place] [facility] [address] [id number] [place] [address] Jun, [facility] [place] [facility] [address] [id number] [place] [address] Jun, [facility] [place] [facility] [address] [id number] [place] [address] May, [facility] [address] [id number] [place] [address] 30 May, 2012 [facility] [place] [facility] [address] [id number] [place] [address] 05 Apr, 2012 [facility] [place] [facility] [address] [id number] [place] [address] Apr, [facility] [place] [facility] [address] [id number] [place] [address] Feb, [facility] [place] [facility] [address] [id number] [place] [address] Feb, [facility] [place] [facility] [address] [id number] [place] [address] Nov, [facility] [place] [facility] [address] [id number] [place] [address] Oct, [facility] [place] [facility] [address] [id number] [place] [address] Sep, [facility] [place] [facility] [address] [id number] [place] [address] Sep, [facility] [place] [facility] [address] [id number] [place] [address] Sep, [facility] [place] [facility] [address] [id number] [place] [address] Aug, [facility] [place] [facility] [address] [id number] [place] [address] Aug, [facility] [place] [facility] [address] [id number] [place] [address] Aug, [facility] [place] [facility] [address] [id number] [place] [address] Jul, [facility] [place] [facility] [address] [id number] [place] [address] Jul, [facility] [place] [facility] [address] [facility] [id number], [place] [address] Jun, [facility] [address] [facility] [id number], [place] [address] Jun, [facility] [address] [facility] [id number], [place] [address] Jun, [facility] [address] [facility] [id number], [place] [address] May, [facility] [address] [facility] [id number], [place] [address] May, [facility] [address] [facility] [id number], [place] [address] May, [facility] [address] [facility] [id number], [place] [address] May, [facility] [id number], [place] [address] May, [facility] [id number], [place] [address] Feb, [facility] [id number], [place] [address] Nov, [facility] [address] [id number], [place] [address] Oct, IMMUNIZATIONS No Known Immunizations SOCIAL HISTORY Never Assessed REASON FOR VISIT [facility] [place] VITAL SIGNS MEDICATIONS Medication Instructions Dosage Frequency Start Date End Date Duration Status Lipitor 40 mg 1 tablet by Oral route 1 time per day Oct, Active NovoLog Flexpen 100 unit/mL 30 units by Subcutaneous route 3 times per day Oct, Active Vitamin D3 50,000 unit 1 capsule by Oral route 2 times per week for 3 monthstwice weekly Aug, Active Oxybutynin Chloride 5 mg 1 tablet by Oral route 1 time per day for 30 day(s)before bed Nov, Active Levemir FlexTouch 100 unit/mL (3 mL) inject 45 Units by Subcutaneous route as per insulin sliding scale protocol 2 times per day Oct, Active MiraLax 17 gram/dose 17 g by Oral route 1 time per day (dissolve in water or juice) May, Active RESULTS No Results PROCEDURES No Known procedures INSTRUCTIONS MEDICATIONS ADMINISTERED No Known Medications MEDICAL (GENERAL) HISTORY Type Description Date Medical History hypertension Medical History hyperlipidemia Medical History type II diabetes Medical History Arthritis-knees and hips Medical History stroke-05/2011 Medical History leukemia (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 Yu Surgical History dilatation and curettage 03/2000 Surgical History tubal ligation 1978 Surgical History right mastectomy 05/29/2018 Surgical History cholecystectomy 05/29/2018 Hospitalization History [facility] admit for stroke 05/2011 Hospitalization History Via [facility] for elevated blood sugars 09/2010 Hospitalization History surgery and RT mastectomy 05/29/2018
--- OUTSIDE RECORDS SUMMARY | 2019-01-08 01:47 | XMS REPORT ---
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 Z79.4 Active 413711596 Problem Mixed hyperlipidemia E78.2 Active 598663123 Problem Other obesity due to excess calories E66.09 Active 780583507 Problem History of CVA (cerebrovascular accident) Z86.73 Active 164313137 Problem Constipation K59.00 Active 51818837 Problem Type 2 diabetes mellitus with diabetic neuropathy E11.40 Active 51417474 Problem 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 Active 11821684 Problem History of renal failure Z87.448 Active 328800869 Problem Osteoarthritis of right knee M17.9 Active 393718771 Problem Chronic idiopathic constipation K59.04 Active 20102233 ALLERGIES No Information ENCOUNTERS Encounter Location Date Diagnosis [place] [id number] [place] [address] Mar, [facility] [id number] [place] [address] Nov, [facility] [id number] [place] [address] Oct, [facility] [id number] [place] [address] Oct, [facility] [address] [address] Oct, [facility] [id number] [place] [address] Sep, History of CVA (cerebrovascular accident) Z86.73 ; Essential hypertension I10 and Type 2 diabetes mellitus with diabetic neuropathy E11.40 [facility] [id number] [place] [address] 14 Sep, 2018 [facility] [address] [address] 13 Sep, 2018 Type 2 diabetes mellitus with diabetic neuropathy E11.40 ; Encounter for immunization Z23 ; History of CVA (cerebrovascular accident) Z86.73 and Essential hypertension I10 [facility] [address] [address] 24 Aug, 2018 Essential hypertension I10 [facility] [address] [address] 15 Aug, 2018 [facility] [address] [address] 14 Aug, 2018 [facility] [id number] [place] [address] Aug, Abdominal pain R10.9 and Constipation K59.00 [facility] [id number] [place] [address] 04 Jul, 2018 [facility] [address] [address] Jul, [facility] [id number] [place] [address] Jun, [facility] [id number] [place] [address] Jun, Essential hypertension I10 [facility] [id number] [place] [address] 14 Jun, 2018 Type 2 diabetes mellitus with diabetic neuropathy E11.40 and Mixed hyperlipidemia E78.2 [facility] [id number] [place] [address] 12 Jun, 2018 Type 2 diabetes mellitus with diabetic neuropathy E11.40 ; Mixed hyperlipidemia E78.2 and Essential hypertension I10 [facility] [address] [address] May, [facility] [address] [address] May, [facility] [id number] [place] [address] Mar, Essential hypertension I10 and Type 2 diabetes mellitus with diabetic neuropathy E11.40 [facility] [id number] [place] [address] Mar, [facility] [id number] [place] [address] Mar, Essential hypertension I10 [facility] [id number] [place] [address] Mar, Type 2 diabetes mellitus with diabetic neuropathy E11.40 [facility] [id number] [place] [id number] Feb, Dental caries K02.9 [facility] [id number] [place] [address] Feb, [facility] [id number] [place] [address] Feb, Type 2 diabetes mellitus with diabetic neuropathy E11.40 ; Essential hypertension I10 ; Mixed hyperlipidemia E78.2 ; History of CVA (cerebrovascular accident) Z86.73 ; Other obesity due to excess calories E66.09 and Body mass index (BMI) of 31.0-31.9 in adult Z68.31 [facility] [id number] [place] [id number] Jan, Dental examination Z01.20 [facility] [id number] [place] [address] Jan, Type 2 diabetes mellitus with diabetic neuropathy E11.40 [facility] [id number] [place] [id number] Nov, Dental caries K02.9 [facility] [id number] [place] [address] Nov, Type 2 diabetes mellitus with diabetic neuropathy E11.40 [facility] [id number] [place] [address] Nov, Medicare annual wellness visit, initial Z00.00 ; Type 2 diabetes mellitus with diabetic neuropathy E11.40 ; longterm current use of insulin Z79.4 ; 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 ; Essential hypertension I10 ; Mixed hyperlipidemia E78.2 ; History of CVA (cerebrovascular accident) Z86.73 ; History of renal failure Z87.448 ; Osteoarthritis of right knee M17.9 and Encounter for immunization Z23 [facility] [id number] [place] [phone] Nov, Dental examination Z01.20 [facility] [id number] [place] [address] Oct, Type 2 diabetes mellitus with diabetic neuropathy E11.40 ; rat exterminator current use of insulin Z79.4 ; 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 ; History of renal failure Z87.448 ; Mild single current episode of major depressive disorder F32.0 ; Essential hypertension I10 ; Mixed hyperlipidemia E78.2 and Chronic idiopathic constipation K59.04 [facility] [id number] [place] [address] 15 Oct, 2017 Type 2 diabetes mellitus with diabetic neuropathy E11.40 ; Dental caries extending into pulp K02.9 ; Nausea and vomiting, intractability of vomiting not specified, unspecified vomiting type R11.2 and Chronic idiopathic constipation K59.04 [facility] [id number] [place] [address] Oct, Type 2 diabetes mellitus with diabetic neuropathy E11.40 [place] [id number] [place] [address] Aug, [facility] [id number] [place] [address] Jul, Type 2 diabetes mellitus with diabetic neuropathy E11.40 [facility] [address] [place], [place] [address] Jul, Muscle spasm of back M62.830 [facility] [id number] [place] [address] Jun, Type 2 diabetes mellitus with diabetic neuropathy E11.40 ; longterm current use of insulin Z79.4 ; 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 ; History of renal failure Z87.448 and Mild single current episode of major depressive disorder F32.0 [facility] [address], [place] [address] Mar, Type 2 diabetes mellitus with diabetic neuropathy E11.40 ; rat exterminator current use of insulin Z79.4 ; [facility] C[facility] ; History of renal failure Z87.448 ; Mild single current episode of major depressive disorder F32.0 ; Pain in right knee M25.561 and Encounter for immunization Z23 [place] [id number] [place] [address] Feb, Bloody discharge from right nipple N64.52 [facility] [id number] [place] [address] Feb, [place] [id number] [place] [address] Feb, [facility] [address], [place] [address] December, Type 2 diabetes mellitus with diabetic neuropathy E11.40 [facility] [id number] [place] [address] December, Type 2 diabetes mellitus with diabetic neuropathy E11.40 ; rat exterminator current use of insulin Z79.4 ; 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 ; History of renal failure Z87.448 ; Mild single current episode of major depressive disorder F32.0 and Pain in right knee M25.561 [facility] [address], [place] [address] Nov, Type 2 diabetes mellitus with diabetic neuropathy E11.40 ; rat exterminator current use of insulin Z79.4 ; Chronic myeloid leukemia in [place] 301[address].11 ; History of renal failure Z87.448 ; Mild single current episode of major depressive disorder F32.0 and Pain in right knee M25.561 [place] [address], [place] [address] 16 Sep, 2016 Osteoarthritis of right knee M17.9 [place] [id number] [place] [address] 08 Sep, 2016 Type 2 diabetes mellitus with diabetic neuropathy E11.40 ; rat exterminator current use of insulin Z79.4 ; Chronic myeloid leukemia in [place] 301092.11 ; History of renal failure Z87.448 ; Mild single current episode of major depressive disorder F32.0 and Pain in right knee M25.561 [place] [address], [place] [address] Aug, Type 2 diabetes mellitus with diabetic neuropathy E11.40 [place] [id number] [place] [address] Jul, Type 2 diabetes mellitus with diabetic neuropathy E11.40 ; rat exterminator current use of insulin Z79.4 ; Chronic myeloid leukemia in [place] 301092.11 ; History of renal failure Z87.448 and Mild single current episode of major depressive disorder F32.0 [place] [address], [place] [address] Jun, [place] [address] [place] [address] May, Type 2 diabetes mellitus with diabetic neuropathy E11.40 [place] [address] [place] [address] May, Tendonitis M77.9 [facility] [address] [place] [address] May, Type 2 diabetes mellitus with diabetic neuropathy E11.40 ; rat exterminator current use of insulin Z79.4 ; Chronic myeloid leukemia in [place] 301092.11 ; History of renal failure Z87.448 and Mild single current episode of major depressive disorder F32.0 [place] [address], [place] [address] Apr, Type 2 diabetes mellitus with diabetic neuropathy E11.40 [place] [address] [place] [address] 14 Apr, 2016 Type 2 diabetes mellitus with diabetic neuropathy E11.40 ; longterm current use of insulin Z79.4 ; Chronic myeloid leukemia in [facility] C92.11 ; History of renal failure Z87.448 ; Mild single current episode of major depressive disorder F32.0 and Right foot pain M79.671 [place] [id number] [place] [address] Feb, History of renal failure Z87.448 [place] [id number] [place] [address] Feb, Type 2 diabetes mellitus with diabetic neuropathy E11.40 ; rat exterminator current use of insulin Z79.4 ; Chronic myeloid leukemia in [facility] C92.11 ; History of renal failure Z87.448 and Mild single current episode of major depressive disorder F32.0 [place] [id number] [place] [address] Feb, 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 [place] [address] [place] [address] Feb, Type 2 diabetes mellitus with diabetic neuropathy E11.40 ; rat exterminator current use of insulin Z79.4 ; Chronic myeloid leukemia in [facility] C92.11 ; Essential hypertension I10 ; Mixed hyperlipidemia E78.2 ; History of CVA (cerebrovascular accident) Z86.73 ; History of renal failure Z87.448 and Mild single current episode of major depressive disorder F32.0 [place] [address], [place] [address] Jan, Type 2 diabetes mellitus with diabetic neuropathy E11.40 ; rat exterminator current use of insulin Z79.4 ; Chronic myeloid leukemia in [facility] C92.11 ; Essential hypertension I10 ; Mixed hyperlipidemia E78.2 ; History of CVA (cerebrovascular accident) Z86.73 and History of renal failure Z87.448 [facility] [id number] [place] [address] 15 Jan, 2016 [facility] [id number] [place] [address] 15 Jan, 2016 Cellulitis of hand, left L03.114 [place] [address] [address] Nov, Osteoarthritis of right knee M17.9 [place] [address] [address] 11 Sep, 2015 Type 2 diabetes mellitus with diabetic neuropathy E11.40 ; rat exterminator current use of insulin Z79.4 ; Chronic myeloid leukemia in [place] 301092.11 ; Essential hypertension I10 ; Mixed hyperlipidemia E78.2 and History of CVA (cerebrovascular accident) Z86.73 [place] [id number] [place] [address] Aug, Osteoarthritis of right knee M17.9 [place] [address] [address] Aug, Pain in right knee M25.561 [place] [id number] [place] [address] Jul, [place] [id number] [place] [address] Jun, [place] [id number] [place] [address] Jun, Axillary lump, right R22.31 [place] [id number] [place] [address] Jun, Type 2 diabetes mellitus with diabetic neuropathy E11.40 ; Encounter for immunization Z23 ; longterm current use of insulin Z79.4 ; Chronic myeloid leukemia in [place] 301092.11 ; Essential hypertension I10 ; Mixed hyperlipidemia E78.2 ; History of CVA (cerebrovascular accident) Z86.73 and Axillary lump, right R22.31 [facility] [id number] [place] [address] Mar, Hyperlipidemia 272.4 [facility] [id number] [place] [address] Mar, Right knee pain 719.46 [facility] [id number] [place] [address] Mar, Rotator cuff impingement syndrome of left shoulder 726.10 [facility] [id number] [place] [address] Feb, [facility] [id number] [place] [address] Feb, Chronic myeloid leukemia, without mention of having achieved remission 205.10 ; Essential hypertension, malignant 401.0 ; Unspecified hereditary and idiopathic peripheral neuropathy 356.9 ; Diabetes mellitus type 2, controlled, with complications 250.90 ; Hyperlipidemia 272.4 and Pain, joint, shoulder, left 719.41 [facility] [id number] [place] [address] Jan, [facility] [id number] [place] [address] Nov, [facility] [id number] [place] [address] Nov, [facility] [id number] [place] [address] Oct, [facility] [id number] [place] [address] Oct, [facility] [id number] [place] [address] Oct, [facility] [id number] [place] [address] Oct, [facility] [address] [id number] [place] [address] Oct, [facility] [place] [facility] [address] [id number] [place] [address] Oct, [facility] [place] [facility] [address] [id number] [place] [address] Sep, [facility] [place] [facility] [address] [id number] [place] [address] Sep, [facility] [place] [facility] [address] [id number] [place] [address] Aug, [facility] [place] [facility] [address] [id number] [place] [address] Aug, [facility] [place] [facility] [address] [id number] [place] [address] Jul, [facility] [place] [facility] [address] [id number] [place] [address] Jul, [facility] [place] [facility] [address] [id number] [place] [address] Jul, [facility] [place] [facility] [address] [id number] [place] [address] Jul, [facility] [place] [facility] [address] [id number] [place] [address] Jul, [facility] [place] [facility] [address] [id number] [place] [address] Jul, [facility] [place] [facility] [address] [id number] [place] [address] Jul, [facility] [place] [facility] [address] [id number] [place] [address] Jul, [facility] [place] [facility] [address] [id number] [place] [address] Jul, [facility] [place] [facility] [address] [id number] [place] [address] May, [facility] [place] [facility] [address] [id number] [place] [address] May, [facility] [place] [facility] [address] [id number] [place] [address] Apr, [facility] [place] [facility] [address] [id number] [place] [address] Apr, [facility] [place] [facility] [address] [id number] [place] [address] Apr, [facility] [place] [facility] [address] [id number] [place] [address] Apr, [facility] [place] [facility] [address] [id number] [place] [address] Feb, [facility] [place] [facility] [address] [id number] [place] [address] Feb, [facility] [place] [facility] [address] [id number] [place] [address] Feb, [facility] [place] [facility] [address] [id number] [place] [address] Feb, [facility] [place] [facility] [address] [id number] [place] [address] Jan, [facility] [place] [facility] [address] [id number] [place] [address] Jan, [facility] [place] [facility] [address] [id number] [place] [address] Jan, [facility] [place] [facility] [address] [id number] [place] [address] Jan, [facility] [place] [facility] [address] [id number] [place] [address] Jan, [facility] [place] [facility] [address] [id number] [place] [address] Jan, [facility] [place] [facility] [address] [id number] [place] [address] December, [facility] [place] [facility] [address] [id number] [place] [address] December, [facility] [place] [facility] [address] [id number] [place] [address] December, [facility] [place] [facility] [address] [id number] [place] [address] December, [facility] [place] [facility] [address] [id number] [place] [address] Nov, [facility] [place] [facility] [address] [id number] [place] [address] Nov, [facility] [place] [facility] [address] [id number] [place] [address] Nov, [facility] [place] [facility] [address] [id number] [place] [address] Nov, [facility] [place] [facility] [address] [id number] [place] [address] Oct, [facility] [place] [facility] [address] [id number] [place] [address] Oct, [facility] [place] [facility] [address] [id number] [place] [address] Oct, [facility] [place] [facility] [address] [id number] [place] [address] Oct, [facility] [place] [facility] [address] [id number] [place] [address] Oct, [facility] [place] [facility] [address] [id number] [place] [address] Oct, [facility] [place] [facility] [address] [id number] [place] [address] Sep, [facility] [place] [facility] [address] [id number] [place] [address] Sep, [facility] [place] [facility] [address] [id number] [place] [address] Sep, [facility] [place] [facility] [address] [id number] [place] [address] Sep, [facility] [place] [facility] [address] [facility] [id number] [place] [address] Aug, [facility] [place] [facility] [address] [id number] [place] [address] Aug, [facility] [place] [facility] [address] [id number] [place] [address] Aug, [facility] [place] [facility] [address] [id number] [place] [address] Aug, [facility] [place] [facility] [address] [id number] [place] [address] Aug, [facility] [place] [facility] [address] [id number] [place] [address] Aug, [facility] [place] [facility] [address] [id number] [place] [address] Jul, [facility] [place] [facility] [address] [id number] [place] [address] Jul, [facility] [place] [facility] [address] [id number], [place] [address] Jul, [facility] [place] [facility] [address] [id number], [place] [address] Jul, [facility] [place] [facility] [address] [id number] [place] [address] Jun, [facility] [place] [facility] [address] [id number] [place] [address] Jun, [facility] [place] [facility] [address] [id number] [place] [address] May, [facility] [place] [facility] [address] [id number] [place] [address] 16 Feb, 2013 [facility] [address] [id number] [place] [address] Feb, [facility] [address] [id number] [place] [address] Feb, [facility] [address] [id number] [place] [address] Jan, [facility] [address] [id number] [place] [address] Jan, [facility] [address] [id number] [place] [address] Jan, [facility] [address] [id number] [place] [address] December, [facility] [address] [id number] [place] [address] December, [facility] [address] [id number] [place] [address] December, [facility] [address] [id number] [place] [address] Nov, [facility] [address] [id number] [place] [address] Nov, [facility] [address] [id number] [place] [address] 16 Nov, 2012 [facility] [address] [id number] [place] [address] 15 Nov, 2012 [facility] [address] [id number] [place] [address] 10 Nov, 2012 [facility] [address] [id number] [place] [address] 09 Nov, 2012 [facility] [address] [id number] [place] [address] Oct, [facility] [address] [id number] [place] [address] Oct, [facility] [place] [facility] [address] [id number] [place] [address] Oct, [facility] [place] [facility] [address] [id number] [place] [address] 28 Aug, 2012 [facility] [place] [facility] [address] [id number] [place] [address] Aug, [facility] [place] [facility] [address] [id number] [place] [place] [address] Aug, [facility] [place] [facility] [address] [id number] [place] [address] Jul, [facility] [place] [facility] [address] [id number] [place] [address] Jul, [facility] [place] [facility] [address] [id number] [place] [address] Jun, [facility] [place] [facility] [address] [id number] [place] [address] Jun, [facility] [place] [facility] [address] [id number] [place] [address] Jun, [facility] [place] [facility] [address] [id number] [place] [address] Jun, [facility] [place] [facility] [address] [id number], [place] [address] May, [facility] [place] [facility] [address] [id number] [place] [address] May, [facility] [place] [facility] [address] [id number] [place] [address] 05 Apr, 2012 [facility] [place] [facility] [address] [id number] [place] [address] Apr, [facility] [place] [facility] [address] [id number], [place] [address] Feb, [facility] [address] [id number] [place] [address] Feb, [facility] [place] [facility] [address] [id number] [place] [address] Nov, [facility] [place] [facility] [address] [id number] [place] [address] Oct, [facility] [place] [facility] [address] [id number] [place] [address] Sep, [facility] [place] [facility] [address] [id number] [place] [address] Sep, [facility] [place] [facility] [address] [id number] [place] [address] Sep, [facility] [address] [facility] [id number] [place] [address] Aug, [facility] [place] [facility] [address] [id number] [place] [address] Aug, [facility] [place] [facility] [address] [facility] [id number] [place] [address] Aug, [facility] [place] [facility] [address] [facility] [id number] [place] [address] Jul, [facility] [place] [facility] [address] [facility] [id number] [place] [address] Jul, [facility] [place] [facility] [address] [id number] [place] [address] Jun, [facility] [place] [facility] [address] [id number] [place] [address] Jun, [facility] [place] [facility] [address] [facility] [id number] [place] [address] Jun, [facility] [place] [facility] [address] [facility] [id number] [place] [address] May, [facility] [place] [facility] [address] [facility] [id number], [place] [address] May, [facility] [address] [id number], [place] [address] May, [facility] [id number], [place] [address] May, [facility] [address] [id number], [place] [address] May, [facility] [address] [id number], [place] [address] Feb, [facility] [address] [id number], [place] [address] Nov, [facility] [address] [id number], [place] [address] Oct, IMMUNIZATIONS No Known Immunizations SOCIAL HISTORY Never Assessed [place] [place] VITAL SIGNS MEDICATIONS Unknown Medications RESULTS No Results PROCEDURES No Known procedures INSTRUCTIONS MEDICATIONS ADMINISTERED No Known Medications MEDICAL (GENERAL) HISTORY Type Description Date Medical History hypertension Medical History hyperlipidemia Medical History type II diabetes Medical History Arthritis-knees and hips Medical History stroke-05/2011 Medical History leukemia (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 Yu Surgical History dilatation and curettage 03/2000 Surgical History tubal ligation 1979 Surgical History right mastectomy 05/29/2018 Surgical History cholecystectomy 05/29/2018 Hospitalization History Via [facility] admit for stroke 05/2011 Hospitalization History Via [facility] [place] for elevated blood sugars 09/2010 Hospitalization History surgery and RT mastectomy 05/29/2018
--- OUTSIDE RECORDS SUMMARY | 2019-01-08 01:47 | XMS REPORT ---
Author Author JACIEL ONOFRE [facility] Address [address] [place] [address] Care Team Providers Care Director Of Sustainable Design Name Role Phone JACIEL ONOFRE Unavailable PROBLEMS Type Condition ICD9-CM Code [id number] Code Onset Dates Condition Status SNOMED Code Problem History of CVA (cerebrovascular accident) Z86.73 Active 215127957 Problem FCI current use of insulin Z79.4 Active 611962866 Problem Essential hypertension I10 Active 36478907 Problem Type 2 diabetes mellitus with diabetic neuropathy E11.40 Active 81630488 Problem Other obesity due to excess calories E66.09 Active 246325485 Problem Chronic idiopathic constipation K59.04 Active 72588441 Problem 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 Active 73735755 Problem Mixed hyperlipidemia E78.2 Active 195687905 Problem Osteoarthritis of right knee M17.9 Active 682809320 Problem History of renal failure Z87.448 Active 484816192 ALLERGIES No Information ENCOUNTERS Encounter Location Date Diagnosis [place] [id number] [address] Jul, [facility] [place] [address] [place] [id number] [place] [address] Jul, [facility] [place] [address] [address] Jun, [facility] [place] [address] [place] [address] [id number] [place] [address] Jun, Essential hypertension I10 [facility] [place] [address] [address] 14 Jun, 2018 Type 2 diabetes mellitus with diabetic neuropathy E11.40 and Mixed hyperlipidemia E78.2 [facility] [place] [address] [address] Jun, Type 2 diabetes mellitus with diabetic neuropathy E11.40 ; Mixed hyperlipidemia E78.2 and Essential hypertension I10 [facility] [place] [address] [address] May, [facility] [place] [address] [address] May, [facility] [place] [id number] [place] [address] Mar, Essential hypertension I10 and Type 2 diabetes mellitus with diabetic neuropathy E11.40 [facility] [place] [id number] [place] [address] Mar, [facility] [place] [address] [place] [address] Mar, Essential hypertension I10 [facility] [place] [id number] [place] [address] Mar, Type 2 diabetes mellitus with diabetic neuropathy E11.40 [facility] [address] [id number] Feb, Dental caries K02.9 [facility] [place] [address] [place] [address] Feb, [facility] [place] [address], [place] [address] Feb, Type 2 diabetes mellitus with diabetic neuropathy E11.40 ; Essential hypertension I10 ; Mixed hyperlipidemia E78.2 ; History of CVA (cerebrovascular accident) Z86.73 ; Other obesity due to excess calories E66.09 and Body mass index (BMI) of 31.0-31.9 in adult Z68.31 [facility] [address] [place] [id number] Jan, Dental examination Z01.20 [facility] [place] [address] [address] 07 Jan, 2018 Type 2 diabetes mellitus with diabetic neuropathy E11.40 [facility] [address] [place] [id number] [place] [id number] Nov, Dental caries K02.9 [facility] [place] [address] [id number] [place] [address] Nov, Type 2 diabetes mellitus with diabetic neuropathy E11.40 [facility] [place] [address] [id number] [place] [address] Nov, Medicare annual wellness visit, initial Z00.00 ; Type 2 diabetes mellitus with diabetic neuropathy E11.40 ; FCI current use of insulin Z79.4 ; 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 ; Essential hypertension I10 ; Mixed hyperlipidemia E78.2 ; History of CVA (cerebrovascular accident) Z86.73 ; History of renal failure Z87.448 ; Osteoarthritis of right knee M17.9 and Encounter for immunization Z23 [facility] [address] [place] [id number] Nov, Dental examination Z01.20 [facility] [place] [address] [address] [id number] [place] [address] Oct, Type 2 diabetes mellitus with diabetic neuropathy E11.40 ; FCI current use of insulin Z79.4 ; 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 ; History of renal failure Z87.448 ; Mild single current episode of major depressive disorder F32.0 ; Essential hypertension I10 ; Mixed hyperlipidemia E78.2 and Chronic idiopathic constipation K59.04 [facility] [address] [place] [address] Oct, Type 2 diabetes mellitus with diabetic neuropathy E11.40 ; Dental caries extending into pulp K02.9 ; Nausea and vomiting, intractability of vomiting not specified, unspecified vomiting type R11.2 and Chronic idiopathic constipation K59.04 [facility] [place] [address] [place] [address] Oct, Type 2 diabetes mellitus with diabetic neuropathy E11.40 [facility] [place] [address] [place] [address] Aug, [facility] [place] [address] [address] Jul, Type 2 diabetes mellitus with diabetic neuropathy E11.40 [facility] [address] [place] [address] Jul, Muscle spasm of back M62.830 [facility] [place] [address] [place] [address] Jun, Type 2 diabetes mellitus with diabetic neuropathy E11.40 ; intermediate card tender current use of insulin Z79.4 ; [facility] C[facility] ; History of renal failure Z87.448 and Mild single current episode of major depressive disorder F32.0 [place] [address] [place] [address] Mar, Type 2 diabetes mellitus with diabetic neuropathy E11.40 ; FCI current use of insulin Z79.4 ; [facility] C92.11 ; History of renal failure Z87.448 ; Mild single current episode of major depressive disorder F32.0 ; Pain in right knee M25.561 and Encounter for immunization Z23 [facility] [place] [address] [place] [id number] [place] [address] Feb, Bloody discharge from right nipple N64.52 [facility] [place] [address] [place] [address] Feb, [facility] [place] [address] [place] [id number] [place] [address] Feb, [facility] [place] [address] [place] [id number] [place] [address] December, Type 2 diabetes mellitus with diabetic neuropathy E11.40 [facility] [place] [address] [place] [address] December, Type 2 diabetes mellitus with diabetic neuropathy E11.40 ; intermediate card tender current use of insulin Z79.4 ; [facility] C92[facility]11 ; History of renal failure Z87.448 ; Mild single current episode of major depressive disorder F32.0 and Pain in right knee M25.561 [facility] [place] [address], [place] [address] Nov, Type 2 diabetes mellitus with diabetic neuropathy E11.40 ; intermediate card tender current use of insulin Z79.4 ; Chronic myeloid leukemia in rust C92.11 ; History of renal failure Z87.448 ; Mild single current episode of major depressive disorder F32.0 and Pain in right knee M25.561 [place] [address] [place] [id number] [place] [address] 16 Sep, 2016 Osteoarthritis of right knee M17.9 [place] [address] [place] [id number] [place] [address] 08 Sep, 2016 Type 2 diabetes mellitus with diabetic neuropathy E11.40 ; FCI current use of insulin Z79.4 ; Chronic myeloid leukemia in rust 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 ; History of renal failure Z87.448 ; Mild single current episode of major depressive disorder F32.0 and Pain in right knee M25.561 [place] [address] [place] [address] Aug, Type 2 diabetes mellitus with diabetic neuropathy E11.40 [place] [address] [place] [address] Jul, Type 2 diabetes mellitus with diabetic neuropathy E11.40 ; intermediate card tender current use of insulin Z79.4 ; Chronic myeloid leukemia in rust 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 ; History of renal failure Z87.448 and Mild single current episode of major depressive disorder F32.0 [place] [address], [place] [address] Jun, [place] [address] [place] [id number] [place] [address] May, Type 2 diabetes mellitus with diabetic neuropathy E11.40 [place] [address], [place] [address] May, Tendonitis M77.9 [place] [address] [place] [id number] [address] May, Type 2 diabetes mellitus with diabetic neuropathy E11.40 ; FCI current use of insulin Z79.4 ; Chronic myeloid leukemia in rust 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 ; History of renal failure Z87.448 and Mild single current episode of major depressive disorder F32.0 [place] [address], [place] [address] Apr, Type 2 diabetes mellitus with diabetic neuropathy E11.40 [place] [address] [place] [id number] [place] [address] 14 Apr, 2016 Type 2 diabetes mellitus with diabetic neuropathy E11.40 ; FCI current use of insulin Z79.4 ; Chronic myeloid leukemia in [place] 916352.11 ; History of renal failure Z87.448 ; Mild single current episode of major depressive disorder F32.0 and Right foot pain M79.671 [place] [address] [place] [id number] [place] [address] Feb, History of renal failure Z87.448 [place] [address] [place] [address] Feb, Type 2 diabetes mellitus with diabetic neuropathy E11.40 ; intermediate card tender current use of insulin Z79.4 ; Chronic myeloid leukemia in [place] 916352.11 ; History of renal failure Z87.448 and Mild single current episode of major depressive disorder F32.0 [place] [address] [place] [address] Feb, 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 [place] [address] [place] [address] Feb, Type 2 diabetes mellitus with diabetic neuropathy E11.40 ; intermediate card tender current use of insulin Z79.4 ; Chronic myeloid leukemia in rust 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 ; Essential hypertension I10 ; Mixed hyperlipidemia E78.2 ; History of CVA (cerebrovascular accident) Z86.73 ; History of renal failure Z87.448 and Mild single current episode of major depressive disorder F32.0 [place] [address] [place] [id number] [place] [address] Jan, Type 2 diabetes mellitus with diabetic neuropathy E11.40 ; FCI current use of insulin Z79.4 ; 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 ; Essential hypertension I10 ; Mixed hyperlipidemia E78.2 ; History of CVA (cerebrovascular accident) Z86.73 and History of renal failure Z87.448 [place] [address] [address] Jan, [facility] [address] [place] [id number] [place] [address] Jan, Cellulitis of hand, left L03.[address] [address] Nov, Osteoarthritis of right knee M17.[address] [address] Sep, Type 2 diabetes mellitus with diabetic neuropathy E11.40 ; intermediate card tender current use of insulin Z79.4 ; [facility] C[facility]11 ; Essential hypertension I10 ; Mixed hyperlipidemia E78.2 and History of CVA (cerebrovascular accident) Z86.73 [place] [address] [place] [id number] [place] [address] Aug, Osteoarthritis of right knee M17.9 [place] [address] [place] [id number] [place] [address] Aug, Pain in right knee M25.561 [place] [address] [place] [id number] [place] [address] Jul, [address] [address] Jun, [place] [address] [place] [id number] [place] [address] Jun, Axillary lump, right R22.31 [place] [address] [address] Jun, Type 2 diabetes mellitus with diabetic neuropathy E11.40 ; Encounter for immunization Z23 ; intermediate card tender current use of insulin Z79.4 ; 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 ; Essential hypertension I10 ; Mixed hyperlipidemia E78.2 ; History of CVA (cerebrovascular accident) Z86.73 and Axillary lump, right R22.31 [place] [address] [place] [id number] [place] [address] Mar, Hyperlipidemia 272.4 [place] [address] [place] [id number] [place] [address] Mar, Right knee pain 719.46 [place] [id number] [place] [address] Mar, Rotator cuff impingement syndrome of left shoulder 726.10 [place] [id number] [place] [address] Feb, [place] [address] [place] [id number] [place] [address] Feb, Chronic myeloid leukemia, without mention of having achieved remission 205.10 ; Essential hypertension, malignant 401.0 ; Unspecified hereditary and idiopathic peripheral neuropathy 356.9 ; Diabetes mellitus type 2, controlled, with complications 250.90 ; Hyperlipidemia 272.4 and Pain, joint, shoulder, left 719.41 [place] [address], [place] [address] Jan, [facility] [place] [address] [address] [id number] [place] [address] Nov, [facility] [place] [address] [id number] [place] [address] Nov, [place] [address] [place] [id number] [place] [address] Oct, [facility] [place] [address] [place] [address] Oct, [place] [address] [place] [id number] [place] [address] 11 Oct, 2014 [facility] [address] [id number] [place] [address] Oct, 2014 [facility] [place] [facility] [address] [id number] [place] [address] Oct, 2014 [facility] [place] [facility] [address] [id number] [place] [address] Oct, 2014 [facility] [place] [facility] [address] [id number] [place] [address] Sep, 2014 [facility] [place] [facility] [address] [id number] [place] [address] Sep, [facility] [place] [facility] [address] [id number] [place] [address] Aug, [facility] [place] [facility] [address] [id number] [place] [address] Aug, [facility] [address] [id number] [place] [address] Jul, [facility] [place] [facility] [address] [id number] [place] [address] Jul, [facility] [place] [facility] [address] [id number] [place] [address] Jul, [facility] [place] [facility] [address] [id number] [place] [address] Jul, [facility] [place] [facility] [address] [id number] [place] [address] Jul, [facility] [place] [facility] [address] [id number] [place] [address] Jul, [facility] [place] [facility] [address] [id number] [place] [address] Jul, [facility] [place] [facility] [address] [id number] [place] [address] Jul, [facility] [place] [facility] [address] [id number] [place] [address] Jul, [facility] [place] [facility] [address] [id number] [place] [address] May, [facility] [place] [facility] [address] [id number] [place] [address] May, [facility] [place] [facility] [address] [id number] [place] [address] Apr, [facility] [place] [facility] [address] [id number] [place] [address] Apr, [facility] [place] [facility] [address] [id number] [place] [address] Apr, [facility] [place] [facility] [address] [id number] [place] [address] Apr, [facility] [place] [facility] [address] [id number] [place] [address] Feb, [facility] [place] [facility] [address] [id number] [place] [address] Feb, [facility] [place] [facility] [address] [id number] [place] [address] Feb, [facility] [place] [facility] [address] [id number] [place] [address] Feb, [facility] [place] [facility] [address] [id number] [place] [address] Jan, [facility] [place] [facility] [address] [id number] [place] [address] Jan, [facility] [place] [facility] [address] [id number] [place] [address] Jan, [facility] [place] [facility] [address] [id number] [place] [address] Jan, [facility] [place] [facility] [address] [id number] [place] [address] Jan, [facility] [place] [facility] [address] [id number] [place] [address] Jan, [facility] [place] [facility] [address] [id number] [place] [address] December, [facility] [place] [facility] [address] [id number] [place] [address] December, [facility] [place] [facility] [address] [id number] [place] [address] December, [facility] [place] [facility] [address] [id number] [place] [address] December, [facility] [place] [facility] [address] [id number] [place] [address] Nov, [facility] [place] [facility] [address] [id number] [place] [address] Nov, [facility] [place] [facility] [address] [id number] [place] [address] Nov, [facility] [place] [facility] [address] [id number] [place] [address] Nov, [facility] [place] [facility] [address] [id number] [place] [address] Oct, [facility] [place] [facility] [address] [id number] [place] [address] Oct, [facility] [place] [facility] [address] [id number] [place] [address] Oct, [facility] [place] [facility] [address] [id number] [place] [address] Oct, [facility] [place] [facility] [address] [id number] [place] [address] Oct, [facility] [place] [facility] [address] [id number] [place] [address] Oct, [facility] [place] [facility] [address] [id number] [place] [address] Sep, [facility] [place] [facility] [address] [id number] [place] [address] Sep, [facility] [place] [facility] [address] [id number] [place] [address] Sep, [facility] [place] [facility] [address] [id number] [place] [address] Sep, [facility] [place] [facility] [address] [id number] [place] [address] Aug, [facility] [place] [facility] [address] [id number] [place] [address] Aug, [facility] [place] [facility] [address] [id number] [place] [address] Aug, [facility] [place] [facility] [address] [id number] [place] [address] Aug, [facility] [place] [facility] [address] [id number] [place] [address] Aug, [facility] [place] [facility] [address] [id number] [place] [address] Aug, [facility] [place] [facility] [address] [id number] [place] [address] Jul, [facility] [place] [facility] [address] [id number] [place] [address] Jul, [facility] [place] [facility] [address] [id number] [place] [address] Jul, [facility] [place] [facility] [address] [id number] [place] [address] Jul, [facility] [place] [facility] [address] [id number] [place] [address] Jun, [facility] [place] [facility] [address] [id number] [place] [address] Jun, [facility] [address] [id number] [place] [address] May, [facility] [place] [facility] [address] [id number] [place] [address] Feb, [facility] [place] [facility] [address] [id number] [place] [address] Feb, [facility] [place] [facility] [address] [id number] [place] [address] Feb, [facility] [address] [id number] [place] [address] Jan, [facility] [place] [facility] [address] [id number] [place] [address] Jan, [facility] [address] [id number] [place] [address] Jan, [facility] [place] [facility] [address] [id number] [place] [address] December, [facility] [address] [id number] [place] [address] December, [facility] [place] [facility] [address] [id number] [place] [address] December, [facility] [address] [id number] [place] [address] Nov, [facility] [place] [facility] [address] [id number] [place] [address] 17 Nov, 2012 [facility] [place] [facility] [address] [id number] [place] [address] 16 Nov, 2012 [facility] [place] [facility] [address] [id number] [place] [address] 15 Nov, 2012 [facility] [place] [facility] [address] [id number] [place] [address] 10 Nov, 2012 [facility] [place] [facility] [address] [id number] [place] [address] 09 Nov, 2012 [facility] [address] [id number] [place] [address] 22 Oct, 2012 [facility] [place] [facility] [address] [id number] [place] [address] 20 Oct, 2012 [facility] [address] [id number] [place] [address] 13 Oct, 2012 [facility] [address] [id number] [place] [address] 28 Aug, 2012 [facility] [address] [id number] [place] [address] Aug, [facility] [address] [id number] [place] [address] Aug, [facility] [address] [id number] [place] [address] Jul, [facility] [address] [id number] [place] [address] Jul, [facility] [address] [id number] [place] [address] Jun, [facility] [address] [id number] [place] [address] Jun, [facility] [address] [id number] [place] [address] Jun, [facility] [address] [id number] [place] [address] Jun, [facility] [place] [facility] [address] [id number] [place] [address] 30 May, 2012 [facility] [place] [facility] [address] [address] [id number] [place] [address] 30 May, 2012 [facility] [place] [facility] [address] [id number] [place] [address] 05 Apr, 2012 [facility] [address] [id number] [place] [address] 03 Apr, 2012 [facility] [place] [facility] [address] [id number] [place] [address] Feb, [facility] [place] [facility] [address] [id number] [place] [address] Feb, [facility] [place] [facility] [address] [id number] [place] [address] Nov, [facility] [place] [facility] [address] [id number] [place] [address] Oct, [facility] [place] [facility] [address] [id number] [place] [address] Sep, [facility] [place] [facility] [address] [id number] [place] [address] Sep, [facility] [place] [facility] [address] [id number] [place] [address] Sep, [facility] [place] [facility] [address] [id number] [place] [address] Aug, [facility] [place] [facility] [address] [id number] [place] [address] Aug, [facility] [place] [facility] [address] [id number] [place] [address] Aug, [facility] [place] [facility] [address] [id number] [place] [address] Jul, [facility] [place] [facility] [address] [id number] [place] [address] Jul, [facility] [place] [facility] [address] [id number] [place] [address] Jun, [facility] [place] [facility] [address] [id number] [place] [address] Jun, [facility] [place] [facility] [address] [id number] [address] Jun, [facility] [place] [id number] [place] [address] May, [facility] [place] [address] [id number], [place] [address] May, [facility] [place] [id number] [address] May, [facility] [place] [id number] [place] [address] May, [facility] [place] [id number] [place] [address] May, [facility] [place] [id number] [address] Feb, [facility] [place] [id number] [place] [address] Nov, [facility] [place] [address] [id number] [address] Oct, IMMUNIZATIONS No Known Immunizations SOCIAL HISTORY Never Assessed REASON FOR VISIT BS ck for titration PLAN OF CARE VITAL SIGNS MEDICATIONS Unknown Medications RESULTS No Results PROCEDURES No Known procedures INSTRUCTIONS MEDICATIONS ADMINISTERED No Known Medications MEDICAL (GENERAL) HISTORY Type Description Date Medical History hypertension Medical History hyperlipidemia Medical History type II diabetes Medical History Arthritis-knees and hips Medical History stroke-05/2011 Medical History leukemia (CML)--dx November 2012--Sees [facility] at [facility] Medical History Dysphagia, unspecified Medical History Unspecified hereditary and idiopathic peripheral neuropathy 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 Yu Surgical History dilatation and curettage 03/2000 Surgical History tubal ligation 1979 Surgical History right mastectomy 05/29/2018 Surgical History cholecystectomy 05/29/2018 Hospitalization History Via [facility] admit for stroke 05/2011 Hospitalization History Via [facility] for elevated blood sugars 09/2010 Hospitalization History surgery and RT mastectomy 05/29/2018
--- OUTSIDE RECORDS SUMMARY | 2019-01-08 01:48 | XMS REPORT ---
Author Author JACIEL ONOFRE [facility] Address [address] [place] [address] Care Team Providers Care Activity Specialist Name Role Phone JACIEL ONOFRE Unavailable PROBLEMS Type Condition ICD9-CM Code [id number] Code Onset Dates Condition Status SNOMED Code Problem History of CVA (cerebrovascular accident) Z86.73 Active 218518071 Problem FCI current use of insulin Z79.4 Active 328922236 Problem Essential hypertension I10 Active 97916972 Problem Type 2 diabetes mellitus with diabetic neuropathy E11.40 Active 42474527 Problem Other obesity due to excess calories E66.09 Active 844913974 Problem Chronic idiopathic constipation K59.04 Active 76585819 Problem 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 Active 46119199 Problem Mixed hyperlipidemia E78.2 Active 109822964 Problem Osteoarthritis of right knee M17.9 Active 537831527 Problem History of renal failure Z87.448 Active 220519511 ALLERGIES No Information ENCOUNTERS Encounter Location Date Diagnosis [facility] [address] [address] 03 Jul, 2018 [facility] [address] [address] 29 Jun, 2018 [facility] [address] [address] 16 Jun, 2018 Essential hypertension I10 [facility] [address] [address] 14 Jun, 2018 Type 2 diabetes mellitus with diabetic neuropathy E11.40 and Mixed hyperlipidemia E78.2 [facility] [address] [address] 12 Jun, 2018 Type 2 diabetes mellitus with diabetic neuropathy E11.40 ; Mixed hyperlipidemia E78.2 and Essential hypertension I10 [facility] [address] [address] May, [facility] [id number] [place] [address] May, [facility] [id number] [place] [address] Mar, Essential hypertension I10 and Type 2 diabetes mellitus with diabetic neuropathy E11.40 [facility] [id number] [place] [address] Mar, [facility] [id number] [place] [address] Mar, Essential hypertension I10 [facility] [id number] [place] [address] Mar, Type 2 diabetes mellitus with diabetic neuropathy E11.40 [facility] [id number] [place] [phone] Feb, Dental caries K02.9 [facility] [address] [place] [address] Feb, [facility] [address] [place] [address] Feb, Type 2 diabetes mellitus with diabetic neuropathy E11.40 ; Essential hypertension I10 ; Mixed hyperlipidemia E78.2 ; History of CVA (cerebrovascular accident) Z86.73 ; Other obesity due to excess calories E66.09 and Body mass index (BMI) of 31.0-31.9 in adult Z68.31 [facility] [address] [id number] Jan, Dental examination Z01.20 [facility] [address] [address] Jan, Type 2 diabetes mellitus with diabetic neuropathy E11.40 [facility] [id number] [place] [id number] Nov, Dental caries K02.9 [facility] [address] [place] [address] Nov, Type 2 diabetes mellitus with diabetic neuropathy E11.40 [facility] [id number] [place] [address] Nov, Medicare annual wellness visit, initial Z00.00 ; Type 2 diabetes mellitus with diabetic neuropathy E11.40 ; vermin exterminator current use of insulin Z79.4 ; 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 ; Essential hypertension I10 ; Mixed hyperlipidemia E78.2 ; History of CVA (cerebrovascular accident) Z86.73 ; History of renal failure Z87.448 ; Osteoarthritis of right knee M17.9 and Encounter for immunization Z23 [facility] [id number] [place] [phone] Nov, Dental examination Z01.20 [place] [address] [address] Oct, Type 2 diabetes mellitus with diabetic neuropathy E11.40 ; FCI current use of insulin Z79.4 ; 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 ; History of renal failure Z87.448 ; Mild single current episode of major depressive disorder F32.0 ; Essential hypertension I10 ; Mixed hyperlipidemia E78.2 and Chronic idiopathic constipation K59.04 [facility] [address] [place] [address] 15 Oct, 2017 Type 2 diabetes mellitus with diabetic neuropathy E11.40 ; Dental caries extending into pulp K02.9 ; Nausea and vomiting, intractability of vomiting not specified, unspecified vomiting type R11.2 and Chronic idiopathic constipation K59.04 [facility] [address] [place] [address] Oct, Type 2 diabetes mellitus with diabetic neuropathy E11.40 [facility] [id number] [place] [address] Aug, [facility] [id number] [place] [address] Jul, Type 2 diabetes mellitus with diabetic neuropathy E11.40 [facility] [address], [place] [address] Jul, Muscle spasm of back M62.830 [facility] [address], [place] [address] Jun, Type 2 diabetes mellitus with diabetic neuropathy E11.40 ; vermin exterminator current use of insulin Z79.4 ; [facility] C92[facility]11 ; History of renal failure Z87.448 and Mild single current episode of major depressive disorder F32.0 [facility] [address], [place] [address] Mar, Type 2 diabetes mellitus with diabetic neuropathy E11.40 ; FCI current use of insulin Z79.4 ; Chronic myeloid leukemia in [facility] C92.11 ; History of renal failure Z87.448 ; Mild single current episode of major depressive disorder F32.0 ; Pain in right knee M25.561 and Encounter for immunization Z23 [facility] [address] [address] Feb, Bloody discharge from right nipple N64.52 [facility] [id number] [place] [address] Feb, [facility] [id number] [place] [address] Feb, [facility] [id number] [place] [address] December, Type 2 diabetes mellitus with diabetic neuropathy E11.40 [facility] [address] [place] [address] December, Type 2 diabetes mellitus with diabetic neuropathy E11.40 ; vermin exterminator current use of insulin Z79.4 ; Chronic myeloid leukemia in [facility] C92.11 ; History of renal failure Z87.448 ; Mild single current episode of major depressive disorder F32.0 and Pain in right knee M25.561 [facility] [id number] [place] [address] Nov, Type 2 diabetes mellitus with diabetic neuropathy E11.40 ; FCI current use of insulin Z79.4 ; [facility] C92.11 ; History of renal failure Z87.448 ; Mild single current episode of major depressive disorder F32.0 and Pain in right knee M25.561 [place] [address], [place] [address] 16 Sep, 2016 Osteoarthritis of right knee M17.9 [facility] [id number] [place] [address] Sep, Type 2 diabetes mellitus with diabetic neuropathy E11.40 ; vermin exterminator current use of insulin Z79.4 ; Chronic myeloid leukemia in [facility] C92.11 ; History of renal failure Z87.448 ; Mild single current episode of major depressive disorder F32.0 and Pain in right knee M25.561 [facility] [address] [place] [address] Aug, Type 2 diabetes mellitus with diabetic neuropathy E11.40 [facility] [address] [place] [address] Jul, Type 2 diabetes mellitus with diabetic neuropathy E11.40 ; vermin exterminator current use of insulin Z79.4 ; Chronic myeloid leukemia in [facility] C92.11 ; History of renal failure Z87.448 and Mild single current episode of major depressive disorder F32.0 [facility] [address], [place] [address] Jun, [facility] [address], [place] [address] May, Type 2 diabetes mellitus with diabetic neuropathy E11.40 [facility] [id number] [place] [address] May, Tendonitis M77.9 [facility] [address], [place] [address] May, Type 2 diabetes mellitus with diabetic neuropathy E11.40 ; vermin exterminator current use of insulin Z79.4 ; [facility] C92.11 ; History of renal failure Z87.448 and Mild single current episode of major depressive disorder F32.0 [facility] [address] [place] [address] Apr, Type 2 diabetes mellitus with diabetic neuropathy E11.40 [facility] [id number] [place] [address] 14 Apr, 2016 Type 2 diabetes mellitus with diabetic neuropathy E11.40 ; FCI current use of insulin Z79.4 ; Chronic myeloid leukemia in [facility] C92.11 ; History of renal failure Z87.448 ; Mild single current episode of major depressive disorder F32.0 and Right foot pain M79.671 [facility] [id number] [place] [address] Feb, History of renal failure Z87.448 [facility] [id number] [place] [address] Feb, Type 2 diabetes mellitus with diabetic neuropathy E11.40 ; FCI current use of insulin Z79.4 ; Chronic myeloid leukemia in [facility] C92.11 ; History of renal failure Z87.448 and Mild single current episode of major depressive disorder F32.0 [facility] [address] [place] [address] Feb, 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 [facility] [id number] [place] [address] Feb, Type 2 diabetes mellitus with diabetic neuropathy E11.40 ; FCI current use of insulin Z79.4 ; Chronic myeloid leukemia in [facility] C92.11 ; Essential hypertension I10 ; Mixed hyperlipidemia E78.2 ; History of CVA (cerebrovascular accident) Z86.73 ; History of renal failure Z87.448 and Mild single current episode of major depressive disorder F32.0 [facility] [address], [place] [address] Jan, Type 2 diabetes mellitus with diabetic neuropathy E11.40 ; vermin exterminator current use of insulin Z79.4 ; Chronic myeloid leukemia in [facility] C92.11 ; Essential hypertension I10 ; Mixed hyperlipidemia E78.2 ; History of CVA (cerebrovascular accident) Z86.73 and History of renal failure Z87.448 [facility] [address] [place] [address] Jan, [facility] [id number] [place] [address] Jan, Cellulitis of hand, left L03.114 [facility] [id number] [place] [address] Nov, Osteoarthritis of right knee M17.9 [facility] [id number] [place] [address] Sep, Type 2 diabetes mellitus with diabetic neuropathy E11.40 ; FCI current use of insulin Z79.4 ; [facility] C92.11 ; Essential hypertension I10 ; Mixed hyperlipidemia E78.2 and History of CVA (cerebrovascular accident) Z86.73 [facility] [id number] [place] [address] Aug, Osteoarthritis of right knee M17.9 [facility] [id number] [place] [address] Aug, Pain in right knee M25.561 [facility] [id number] [place] [address] Jul, [facility] [id number] [place] [address] Jun, [place] [facility] [address] [address] Jun, Axillary lump, right R22.31 [facility] [id number] [place] [address] Jun, Type 2 diabetes mellitus with diabetic neuropathy E11.40 ; Encounter for immunization Z23 ; FCI current use of insulin Z79.4 ; 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 ; Essential hypertension I10 ; Mixed hyperlipidemia E78.2 ; History of CVA (cerebrovascular accident) Z86.73 and Axillary lump, right R22.31 [facility] [address] [place] [address] Mar, Hyperlipidemia 272.4 [facility] [id number] [place] [address] Mar, Right knee pain 719.46 [facility] [id number] [place] [address] Mar, Rotator cuff impingement syndrome of left shoulder 726.10 [facility] [id number] [place] [address] Feb, [facility] [facility] [id number] [place] [address] Feb, Chronic myeloid leukemia, without mention of having achieved remission 205.10 ; Essential hypertension, malignant 401.0 ; Unspecified hereditary and idiopathic peripheral neuropathy 356.9 ; Diabetes mellitus type 2, controlled, with complications 250.90 ; Hyperlipidemia 272.4 and Pain, joint, shoulder, left 719.41 [facility] [address], [place] [address] Jan, [facility] [address], [place] [address] Nov, [facility] [id number] [place] [address] Nov, [facility] [address] [place] [address] Oct, [facility] [id number] [place] [address] Oct, [facility] [address], [place] [address] Oct, [facility] [id number] [place] [address] 11 Oct, 2014 [facility] [address] [id number] [place] [address] Oct, 2014 [facility] [place] [facility] [address] [id number] [place] [address] Oct, 2014 [facility] [address] [id number] [place] [address] Sep, [facility] [place] [facility] [address] [id number] [place] [address] Sep, [facility] [place] [facility] [address] [id number] [place] [address] Aug, [facility] [place] [facility] [address] [id number] [place] [address] Aug, [facility] [place] [facility] [address] [id number] [place] [address] Jul, [facility] [address] [id number] [place] [address] Jul, [facility] [place] [facility] [address] [id number] [place] [address] Jul, [facility] [address] [id number] [place] [address] Jul, [facility] [place] [facility] [address] [id number] [place] [address] Jul, [facility] [place] [facility] [address] [id number] [place] [address] Jul, [facility] [place] [facility] [address] [id number] [place] [address] Jul, [facility] [place] [facility] [address] [id number] [place] [address] Jul, [facility] [place] [facility] [address] [id number] [place] [address] Jul, [facility] [place] [facility] [address] [id number] [place] [address] May, [facility] [place] [facility] [address] [id number] [place] [address] May, [facility] [place] [facility] [address] [id number] [place] [address] Apr, [facility] [place] [facility] [address] [id number] [place] [address] Apr, [facility] [place] [facility] [address] [id number] [place] [address] Apr, [facility] [place] [facility] [address] [id number] [place] [address] Apr, [facility] [place] [facility] [address] [id number] [place] [address] Feb, [facility] [place] [facility] [address] [id number] [place] [address] Feb, [facility] [place] [facility] [address] [id number] [place] [address] Feb, [facility] [place] [facility] [address] [id number] [place] [address] Feb, [facility] [place] [facility] [address] [id number] [place] [address] Jan, [facility] [place] [facility] [address] [id number] [place] [address] Jan, [facility] [place] [facility] [address] [id number] [place] [address] Jan, [facility] [place] [facility] [address] [id number] [place] [address] Jan, [facility] [place] [facility] [address] [id number] [place] [address] Jan, [facility] [place] [facility] [address] [id number] [place] [address] Jan, [facility] [place] [facility] [address] [id number] [place] [address] December, [facility] [place] [facility] [address] [id number] [place] [address] December, [facility] [place] [facility] [address] [id number] [place] [address] December, [facility] [place] [facility] [address] [id number] [place] [address] December, [facility] [place] [facility] [address] [id number] [place] [address] Nov, [facility] [place] [facility] [address] [id number] [place] [address] Nov, [facility] [place] [facility] [address] [id number] [place] [address] Nov, [facility] [place] [facility] [address] [id number] [place] [address] Nov, [facility] [place] [facility] [address] [id number] [place] [address] Oct, [facility] [place] [facility] [address] [id number] [place] [address] Oct, [facility] [place] [facility] [address] [id number] [place] [address] Oct, [facility] [place] [facility] [address] [id number] [place] [address] Oct, [facility] [place] [facility] [address] [id number] [place] [address] Oct, [facility] [place] [facility] [address] [id number] [place] [address] Oct, [facility] [place] [facility] [address] [id number] [place] [address] Sep, [facility] [place] [facility] [address] [id number] [place] [address] Sep, [facility] [address] [id number] [place] [address] Sep, [facility] [place] [facility] [address] [id number] [place] [address] Sep, [facility] [address] [id number] [place] [address] Aug, [facility] [address] [id number] [place] [address] Aug, [facility] [address] [id number] [place] [address] Aug, [facility] [address] [id number] [place] [address] Aug, [facility] [address] [id number] [place] [address] Aug, [facility] [address] [id number] [place] [address] Aug, [facility] [address] [id number] [place] [address] Jul, [facility] [place] [facility] [address] [id number] [place] [address] Jul, [facility] [place] [facility] [address] [id number] [address] Jul, [facility] [place] [facility] [address] [id number] [place] [address] Jul, [facility] [place] [facility] [address] [id number] [place] [address] Jun, [facility] [place] [facility] [address] [id number] [place] [address] Jun, [facility] [place] [facility] [address] [id number] [place] [address] May, [facility] [address] [id number] [place] [address] Feb, [facility] [place] [facility] [address] [id number] [place] [address] Feb, [facility] [address] [id number] [place] [address] Feb, [facility] [place] [facility] [address] [id number] [place] [address] Jan, [facility] [address] [id number] [place] [address] Jan, [facility] [place] [facility] [address] [id number] [place] [address] Jan, [facility] [address] [id number] [place] [address] December, [facility] [place] [facility] [address] [id number] [place] [address] December, [facility] [address] [id number] [place] [address] December, [facility] [place] [facility] [address] [id number] [place] [address] Nov, [facility] [place] [facility] [address] [id number] [place] [address] 17 Nov, 2012 [facility] [place] [facility] [address] [id number] [place] [address] 16 Nov, 2012 [facility] [place] [facility] [address] [id number] [place] [address] 15 Nov, 2012 [facility] [place] [facility] [address] [id number] [place] [address] 10 Nov, 2012 [facility] [place] [facility] [address] [id number] [place] [address] 09 Nov, 2012 [facility] [place] [facility] [address] [id number] [place] [address] 22 Oct, 2012 [facility] [address] [id number] [place] [address] 20 Oct, 2012 [facility] [place] [facility] [address] [id number] [place] [address] 13 Oct, 2012 [facility] [address] [id number] [place] [address] 28 Aug, 2012 [facility] [address] [id number] [place] [address] Aug, [facility] [address] [id number] [place] [address] Aug, [facility] [address] [id number] [place] [address] 14 Jul, 2012 [facility] [address] [id number] [place] [address] Jul, [facility] [address] [id number] [place] [address] Jun, [facility] [address] [id number] [place] [address] Jun, [facility] [address] [id number] [place] [address] Jun, [facility] [place] [facility] [address] [id number] [place] [address] Jun, [facility] [address] [id number] [place] [address] May, [facility] [place] [facility] [address] [id number] [place] [address] May, [facility] [place] [facility] [address] [id number] [place] [address] Apr, [facility] [place] [facility] [address] [id number] [place] [address] Apr, [facility] [address] [id number] [place] [address] Feb, [facility] [place] [facility] [address] [id number] [place] [address] Feb, [facility] [place] [facility] [address] [id number] [place] [address] Nov, [facility] [place] [facility] [address] [id number] [place] [address] Oct, [facility] [place] [facility] [address] [id number] [place] [address] Sep, [facility] [place] [facility] [address] [id number] [place] [address] Sep, [facility] [place] [facility] [address] [id number] [place] [address] Sep, [facility] [place] [facility] [address] [id number] [place] [address] Aug, [facility] [place] [facility] [address] [id number] [place] [address] Aug, [facility] [place] [facility] [address] [id number] [place] [address] Aug, [facility] [place] [facility] [address] [id number] [place] [address] Jul, [facility] [place] [facility] [address] [id number] [place] [address] Jul, [facility] [place] [facility] [address] [id number] [place] [address] Jun, [facility] [place] [facility] [address] [id number] [place] [address] Jun, [facility] [place] [facility] [address] [id number] [place] [address] Jun, [facility] [place] [facility] [id number] [address] May, [facility] [address] [id number] [address] May, [facility] [address] [id number] [address] May, [facility] [id number] [address] May, [facility] [id number] [address] May, [facility] [id number] [address] Feb, [facility] [id number] [address] Nov, [facility] [id number] [address] Oct, IMMUNIZATIONS No Known Immunizations SOCIAL HISTORY Never Assessed REASON FOR VISIT refill request PLAN OF CARE VITAL SIGNS MEDICATIONS Medication Instructions Dosage Frequency Start Date End Date Duration Status Glimepiride 2 MG TAKE ONE TABLET BY MOUTH TWICE DAILY 30 Active RESULTS No Results PROCEDURES No Known procedures INSTRUCTIONS MEDICATIONS ADMINISTERED No Known Medications MEDICAL (GENERAL) HISTORY Type Description Date Medical History hypertension Medical History hyperlipidemia Medical History type II diabetes Medical History Arthritis-knees and hips Medical History stroke-05/2011 Medical History leukemia (CML)--dx November 2012--Sees [facility] at [facility] Medical History Dysphagia, unspecified Medical History Unspecified hereditary and idiopathic peripheral neuropathy Medical History 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 Yu Surgical History dilatation and curettage 03/2000 Surgical History tubal ligation 1979 Surgical History right mastectomy 05/29/2018 Surgical History cholecystectomy 05/29/2018 Hospitalization History Via [facility] admit for stroke 05/2011 Hospitalization History Via [facility] for elevated blood sugars 09/2010 Hospitalization History surgery and RT mastectomy 05/29/2018
--- OUTSIDE RECORDS SUMMARY | 2019-01-08 01:49 | XMS REPORT ---
Author Author JACIEL ONOFRE [facility] Address [address] [place] [address] Care Team Providers Care Engineering Officer Name Role Phone JACIEL ONOFRE Unavailable PROBLEMS Type Condition ICD9-CM Code IHO70-HU Code Onset Dates Condition Status SNOMED Code Problem History of CVA (cerebrovascular accident) Z86.73 Active 487445499 Problem nursing home current use of insulin Z79.4 Active 055594149 Problem Essential hypertension I10 Active 56858131 Problem Type 2 diabetes mellitus with diabetic neuropathy E11.40 Active 19891298 Problem Other obesity due to excess calories E66.09 Active 841711616 Problem Chronic idiopathic constipation K59.04 Active 20117904 Problem 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 Active 39588617 Problem Mixed hyperlipidemia E78.2 Active 403934123 Problem Osteoarthritis of right knee M17.9 Active 954842822 Problem History of renal failure Z87.448 Active 593672264 ALLERGIES No Information ENCOUNTERS Encounter Location Date Diagnosis [place] [id number] [place] [address] Jun, Type 2 diabetes mellitus with diabetic neuropathy E11.40 and Mixed hyperlipidemia E78.2 [facility] [id number] [place] [address] Jun, Type 2 diabetes mellitus with diabetic neuropathy E11.40 ; Mixed hyperlipidemia E78.2 and Essential hypertension I10 [facility] [id number] [place] [address] May, [facility] [id number] [place] [address] May, [facility] [id number] [place] [address] Mar, Essential hypertension I10 and Type 2 diabetes mellitus with diabetic neuropathy E11.40 [facility] [address] [address] Mar, [facility] [address] [place] [address] Mar, Essential hypertension I10 [facility] [address], [place] [address] Mar, Type 2 diabetes mellitus with diabetic neuropathy E11.40 [facility] [address] [id number] Feb, Dental caries K02.9 [facility] [id number] [place] [address] Feb, [facility] [address], [place] [address] Feb, Type 2 diabetes mellitus with diabetic neuropathy E11.40 ; Essential hypertension I10 ; Mixed hyperlipidemia E78.2 ; History of CVA (cerebrovascular accident) Z86.73 ; Other obesity due to excess calories E66.09 and Body mass index (BMI) of 31.0-31.9 in adult Z68.31 [facility] [address] [id number] Jan, Dental examination Z01.20 [facility] [address], [place] [address] Jan, Type 2 diabetes mellitus with diabetic neuropathy E11.40 [facility] [id number] [id number] Nov, Dental caries K02.9 [facility] [address], [place] [address] Nov, Type 2 diabetes mellitus with diabetic neuropathy E11.40 [facility] [address], [place] [address] Nov, Medicare annual wellness visit, initial Z00.00 ; Type 2 diabetes mellitus with diabetic neuropathy E11.40 ; 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.4 ; Chronic myeloid leukemia in [facility] C92.11 ; Essential hypertension I10 ; Mixed hyperlipidemia E78.2 ; History of CVA (cerebrovascular accident) Z86.73 ; History of renal failure Z87.448 ; Osteoarthritis of right knee M17.9 and Encounter for immunization Z23 [facility] [id number] [place] [id number] 03 Nov, 2017 Dental examination Z01.20 [place] [address] [address] Oct, Type 2 diabetes mellitus with diabetic neuropathy E11.40 ; nursing home current use of insulin Z79.4 ; 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 ; History of renal failure Z87.448 ; Mild single current episode of major depressive disorder F32.0 ; Essential hypertension I10 ; Mixed hyperlipidemia E78.2 and Chronic idiopathic constipation K59.04 [facility] [address] [address] 15 Oct, 2017 Type 2 diabetes mellitus with diabetic neuropathy E11.40 ; Dental caries extending into pulp K02.9 ; Nausea and vomiting, intractability of vomiting not specified, unspecified vomiting type R11.2 and Chronic idiopathic constipation K59.04 [place] [address] [address] Oct, Type 2 diabetes mellitus with diabetic neuropathy E11.40 [place] [address] [address] Aug, [place] [address] [address] Jul, Type 2 diabetes mellitus with diabetic neuropathy E11.40 [facility] [address] [address] Jul, Muscle spasm of back M62.830 [place] [address] [address] Jun, Type 2 diabetes mellitus with diabetic neuropathy E11.40 ; nursing home current use of insulin Z79.4 ; Chronic myeloid leukemia in [facility] C92.11 ; History of renal failure Z87.448 and Mild single current episode of major depressive disorder F32.0 [place] [address], [place] [address] Mar, Type 2 diabetes mellitus with diabetic neuropathy E11.40 ; 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.4 ; Chronic myeloid leukemia in [facility] C92.11 ; History of renal failure Z87.448 ; Mild single current episode of major depressive disorder F32.0 ; Pain in right knee M25.561 and Encounter for immunization Z23 [facility] [id number], [place] [address] Feb, Bloody discharge from right nipple N64.52 [facility] [id number] [place] [address] Feb, [place] [id number] [place] [address] Feb, [place] [id number] [place] [address] December, Type 2 diabetes mellitus with diabetic neuropathy E11.40 [place] [id number] [place] [address] December, Type 2 diabetes mellitus with diabetic neuropathy E11.40 ; nursing home current use of insulin Z79.4 ; Chronic myeloid leukemia in [facility] C92.11 ; History of renal failure Z87.448 ; Mild single current episode of major depressive disorder F32.0 and Pain in right knee M25.561 [facility] [address], [place] [address] Nov, Type 2 diabetes mellitus with diabetic neuropathy E11.40 ; 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.4 ; Chronic myeloid leukemia in [facility] C92.11 ; History of renal failure Z87.448 ; Mild single current episode of major depressive disorder F32.0 and Pain in right knee M25.561 [facility] [id number] [place] [address] 16 Sep, 2016 Osteoarthritis of right knee M17.9 [facility] [address] [place] [address] 08 Sep, 2016 Type 2 diabetes mellitus with diabetic neuropathy E11.40 ; nursing home current use of insulin Z79.4 ; Chronic myeloid leukemia in [facility] C92.11 ; History of renal failure Z87.448 ; Mild single current episode of major depressive disorder F32.0 and Pain in right knee M25.561 [facility] [id number] [place] [address] Aug, Type 2 diabetes mellitus with diabetic neuropathy E11.40 [place] [address] [address] Jul, Type 2 diabetes mellitus with diabetic neuropathy E11.40 ; 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.4 ; Chronic myeloid leukemia in [place] 803692.11 ; History of renal failure Z87.448 and Mild single current episode of major depressive disorder F32.0 [facility] [id number] [place] [address] Jun, [place] [id number] [place] [address] May, Type 2 diabetes mellitus with diabetic neuropathy E11.40 [facility] [id number] [place] [address] May, Tendonitis M77.9 [facility] [id number] [place] [address] 04 May, 2016 Type 2 diabetes mellitus with diabetic neuropathy E11.40 ; 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.4 ; Chronic myeloid leukemia in [facility] C92.11 ; History of renal failure Z87.448 and Mild single current episode of major depressive disorder F32.0 [facility] [address] [place] [address] Apr, Type 2 diabetes mellitus with diabetic neuropathy E11.40 [facility] [id number] [place] [address] Apr, Type 2 diabetes mellitus with diabetic neuropathy E11.40 ; 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.4 ; Chronic myeloid leukemia in [facility] C92.11 ; History of renal failure Z87.448 ; Mild single current episode of major depressive disorder F32.0 and Right foot pain M79.671 [place] [address], [place] [address] Feb, History of renal failure Z87.448 [place] [id number] [place] [address] Feb, Type 2 diabetes mellitus with diabetic neuropathy E11.40 ; 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.4 ; Chronic myeloid leukemia in [facility] C92.11 ; History of renal failure Z87.448 and Mild single current episode of major depressive disorder F32.0 [place] [address] [place] [address] Feb, 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 [place] [address] [place] [address] Feb, Type 2 diabetes mellitus with diabetic neuropathy E11.40 ; 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.4 ; Chronic myeloid leukemia in [facility] C92.11 ; Essential hypertension I10 ; Mixed hyperlipidemia E78.2 ; History of CVA (cerebrovascular accident) Z86.73 ; History of renal failure Z87.448 and Mild single current episode of major depressive disorder F32.0 [place] [address] [place] [address] Jan, Type 2 diabetes mellitus with diabetic neuropathy E11.40 ; 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.4 ; Chronic myeloid leukemia in [facility] C92.11 ; Essential hypertension I10 ; Mixed hyperlipidemia E78.2 ; History of CVA (cerebrovascular accident) Z86.73 and History of renal failure Z87.448 [place] [address], [place] [address] Jan, [facility] [address] [place] [address] Jan, Cellulitis of hand, left L03.114 [place] [id number] [place] [address] Nov, Osteoarthritis of right knee M17.9 [place] [id number] [place] [address] Sep, Type 2 diabetes mellitus with diabetic neuropathy E11.40 ; nursing home current use of insulin Z79.4 ; Chronic myeloid leukemia in [facility] C92.11 ; Essential hypertension I10 ; Mixed hyperlipidemia E78.2 and History of CVA (cerebrovascular accident) Z86.73 [place] [id number] [place] [address] Aug, Osteoarthritis of right knee M17.9 [place] [id number] [place] [address] Aug, Pain in right knee M25.561 [place] [id number] [place] [address] Jul, [place] [id number] [place] [address] Jun, [place] [address] [place] [address] Jun, Axillary lump, right R22.31 [place] [id number] [place] [address] Jun, Type 2 diabetes mellitus with diabetic neuropathy E11.40 ; Encounter for immunization Z23 ; nursing home current use of insulin Z79.4 ; Chronic myeloid leukemia in [facility] C92.11 ; Essential hypertension I10 ; Mixed hyperlipidemia E78.2 ; History of CVA (cerebrovascular accident) Z86.73 and Axillary lump, right R22.31 [place] [address] [place] [address] Mar, Hyperlipidemia 272.4 [place] [id number] [address] 14 Mar, 2015 Right knee pain 719.46 [facility] [id number] [place] [address] Mar, Rotator cuff impingement syndrome of left shoulder 726.10 [facility] [id number] [address] Feb, [facility] [id number] [place] [address] Feb, Chronic myeloid leukemia, without mention of having achieved remission 205.10 ; Essential hypertension, malignant 401.0 ; Unspecified hereditary and idiopathic peripheral neuropathy 356.9 ; Diabetes mellitus type 2, controlled, with complications 250.90 ; Hyperlipidemia 272.4 and Pain, joint, shoulder, left 719.41 [facility] [address], [place] [address] Jan, [facility] [id number] [place] [address] Nov, [facility] [id number] [place] [address] Nov, [facility] [id number] [place] [address] Oct, [facility] [address], [place] [address] 17 Oct, 2014 [facility] [address] [place] [address] Oct, [facility] [address], [place] [address] Oct, [facility] [id number] [place] [address] Oct, [facility] [address], [place] [address] Oct, [facility] [id number] [address] Sep, 2014 [facility] [place] [facility] [address] [id number] [place] [address] Sep, 2014 [facility] [place] [facility] [address] [id number] [place] [address] Aug, [facility] [place] [facility] [address] [id number] [place] [address] Aug, [facility] [place] [facility] [address] [id number] [place] [address] Jul, [facility] [place] [facility] [address] [id number] [place] [address] Jul, [facility] [place] [facility] [address] [id number] [place] [address] Jul, [facility] [place] [facility] [address] [id number] [place] [address] Jul, [facility] [place] [facility] [address] [id number] [place] [address] Jul, [facility] [place] [facility] [address] [id number] [place] [address] Jul, [facility] [place] [facility] [address] [facility] [id number] [place] [address] Jul, [facility] [place] [facility] [address] [id number] [place] [address] Jul, [facility] [place] [facility] [address] [id number] [place] [address] Jul, [facility] [place] [facility] [address] [id number] [place] [address] May, [facility] [place] [facility] [address] [id number] [place] [address] May, [facility] [place] [facility] [address] [id number] [place] [address] Apr, [facility] [place] [facility] [address] [id number] [place] [address] Apr, [facility] [place] [facility] [address] [id number] [place] [address] Apr, [facility] [place] [facility] [address] [id number] [place] [address] Apr, [facility] [place] [facility] [address] [id number] [place] [address] Feb, [facility] [place] [facility] [address] [id number] [place] [address] Feb, [facility] [place] [facility] [address] [id number] [place] [address] Feb, [facility] [place] [facility] [address] [id number] [place] [address] Feb, [facility] [place] [facility] [address] [id number] [place] [address] Jan, [facility] [place] [facility] [address] [id number] [place] [address] Jan, [facility] [place] [facility] [address] [id number] [place] [address] Jan, [facility] [place] [facility] [address] [id number] [place] [address] Jan, [facility] [place] [facility] [address] [id number] [place] [address] Jan, [facility] [place] [facility] [address] [id number] [place] [address] Jan, [facility] [place] [facility] [address] [id number] [place] [address] December, [facility] [place] [facility] [address] [id number] [place] [address] December, [facility] [place] [facility] [address] [id number] [place] [address] December, [facility] [place] [facility] [address] [id number] [place] [address] December, [facility] [place] [facility] [address] [id number] [place] [address] Nov, [facility] [place] [facility] [address] [id number] [place] [address] Nov, [facility] [place] [facility] [address] [id number] [place] [address] Nov, [facility] [place] [facility] [address] [id number] [place] [address] Nov, [facility] [place] [facility] [address] [id number] [place] [address] Oct, [facility] [place] [facility] [address] [id number] [place] [address] Oct, [facility] [place] [facility] [address] [id number] [place] [address] Oct, [facility] [place] [facility] [address] [id number] [place] [address] Oct, [facility] [place] [facility] [address] [id number] [place] [address] Oct, [facility] [place] [facility] [address] [id number] [place] [address] Oct, [facility] [place] [facility] [address] [id number] [place] [address] Sep, [facility] [place] [facility] [address] [id number] [place] [address] Sep, [facility] [place] [facility] [address] [id number] [place] [address] Sep, [facility] [place] [facility] [address] [facility] [id number] [place] [address] Sep, [facility] [place] [facility] [address] [id number] [place] [address] Aug, [facility] [place] [facility] [address] [id number] [place] [address] Aug, [facility] [place] [facility] [address] [id number] [place] [address] Aug, [facility] [place] [facility] [address] [id number] [place] [address] Aug, [facility] [place] [facility] [address] [id number] [place] [address] Aug, [facility] [place] [facility] [address] [id number] [place] [address] Aug, [facility] [place] [facility] [address] [id number] [place] [address] Jul, [facility] [place] [facility] [address] [id number] [place] [address] Jul, [facility] [place] [facility] [address] [id number] [place] [address] Jul, [facility] [place] [facility] [address] [id number] [place] [address] Jul, [facility] [place] [facility] [address] [id number] [place] [address] Jun, [facility] [place] [facility] [address] [id number] [place] [address] Jun, [facility] [place] [facility] [address] [id number] [place] [address] May, [facility] [place] [facility] [address] [id number] [place] [address] 16 Feb, 2013 [facility] [place] [facility] [address] [id number] [place] [address] Feb, [facility] [place] [facility] [address] [id number] [place] [address] Feb, [facility] [address] [id number] [place] [address] Jan, [facility] [address] [id number] [place] [address] Jan, [facility] [address] [id number] [place] [address] Jan, [facility] [address] [id number] [place] [address] December, [facility] [address] [id number] [place] [address] December, [facility] [address] [id number] [place] [address] December, [facility] [address] [id number] [place] [address] Nov, [facility] [place] [facility] [address] [id number] [address] 17 Nov, 2012 [facility] [address] [id number] [place] [address] 16 Nov, 2012 [facility] [address] [id number] [place] [address] 15 Nov, 2012 [facility] [address] [id number], [place] [address] 10 Nov, 2012 [facility] [place] [facility] [address] [id number], [place] [address] 09 Nov, 2012 [facility] [place] [facility] [address] [id number] [place] [address] Oct, [facility] [place] [facility] [address] [id number] [place] [address] 20 Oct, 2012 [facility] [place] [facility] [address] [id number] [place] [address] Oct, [facility] [place] [facility] [address] [id number] [place] [address] Aug, [facility] [place] [facility] [address] [id number] [place] [address] Aug, [facility] [place] [facility] [address] [id number] [place] [address] Aug, [facility] [place] [facility] [address] [id number] [place] [address] Jul, [facility] [place] [facility] [address] [id number] [place] [address] Jul, [facility] [place] [facility] [address] [id number] [place] [address] Jun, [facility] [place] [facility] [address] [id number] [place] [address] Jun, [facility] [place] [facility] [address] [id number] [place] [address] Jun, [facility] [place] [facility] [address] [id number] [place] [address] Jun, [facility] [place] [facility] [address] [id number] [place] [address] May, [facility] [place] [facility] [address] [id number] [place] [address] 30 May, 2012 [facility] [place] [facility] [address] [id number] [place] [address] 05 Apr, 2012 [facility] [place] [facility] [address] [id number] [place] [address] Apr, [facility] [place] [facility] [address] [id number] [place] [address] Feb, [facility] [place] [facility] [address] [id number] [place] [address] Feb, [facility] [place] [facility] [address] [id number] [place] [address] Nov, [facility] [place] [facility] [address] [id number] [place] [address] Oct, [facility] [place] [facility] [address] [id number] [place] [address] Sep, [facility] [place] [facility] [address] [id number] [place] [address] Sep, [facility] [place] [facility] [address] [id number] [place] [address] Sep, [facility] [place] [facility] [address] [id number] [place] [address] Aug, [facility] [place] [facility] [address] [id number] [place] [address] Aug, [facility] [place] [facility] [address] [id number] [place] [address] Aug, [facility] [place] [facility] [address] [id number] [place] [address] Jul, [facility] [place] [facility] [address] [id number] [place] [id number] Jul, [facility] [place] [facility] [address] [id number], [place] [address] Jun, [facility] [place] [facility] [address] [id number], [place] [address] Jun, [facility] [place] [facility] [address] [id number], [place] [address] Jun, [facility] [place] [facility] [address] [id number] [place] [address] May, [facility] [place] [facility] [address] [id number], [place] [address] May, [facility] [place] [facility] [address] [id number], [place] [address] May, [facility] [place] [facility] [address] [id number], [place] [address] May, [facility] [address] [facility] [id number] [place] [address] May, [facility] [address] [facility] [id number], [place] [address] Feb, [facility] [address] [facility] [id number], [place] [address] Nov, [facility] [address] [facility] [id number], [place] [address] Oct, IMMUNIZATIONS No Known Immunizations SOCIAL HISTORY Never Assessed REASON FOR VISIT Lab (walk-in) PLAN OF CARE Activity Details Pending Test LIPID PANEL Pending Test CMP Pending Test TSH VITAL SIGNS MEDICATIONS Unknown Medications RESULTS No Results PROCEDURES Procedure Date Ordered Result Body Site LAB NOT BILLED BY [facility] Jun 19, 2018 VENIPUNCT, ROUTINE* Jun 19, 2018 INSTRUCTIONS MEDICATIONS ADMINISTERED No Known Medications MEDICAL (GENERAL) HISTORY Type Description Date Medical History hypertension Medical History hyperlipidemia Medical History type II diabetes Medical History Arthritis-knees and hips Medical History stroke-05/2011 Medical History 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 Yu Surgical History dilatation and curettage 03/2000 Surgical History tubal ligation 1979 Surgical History right mastectomy 05/29/2018 Surgical History cholecystectomy 05/29/2018 Hospitalization History [facility] admit for stroke 05/2011 Hospitalization History [facility] for elevated blood sugars 09/2010 Hospitalization History surgery and RT mastectomy 05/29/2018
--- OUTSIDE RECORDS SUMMARY | 2019-01-08 01:49 | XMS REPORT ---
Author Author JACIEL ONOFRE [facility] Address [address] [place] [address] Care Team Providers Care Certified Detention Deputy Name Role Phone JACIEL ONOFRE Unavailable PROBLEMS Type Condition ICD9-CM Code UPE05-TK Code Onset Dates Condition Status SNOMED Code Problem History of CVA (cerebrovascular accident) Z86.73 Active 295907584 Problem MCFP current use of insulin Z79.4 Active 551081949 Problem Essential hypertension I10 Active 98435597 Problem Type 2 diabetes mellitus with diabetic neuropathy E11.40 Active 23068749 Problem Other obesity due to excess calories E66.09 Active 037392228 Problem Chronic idiopathic constipation K59.04 Active 36013863 Problem 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 Active 83385864 Problem Mixed hyperlipidemia E78.2 Active 843635255 Problem Osteoarthritis of right knee M17.9 Active 713078938 Problem History of renal failure Z87.448 Active 394558969 ALLERGIES No Information ENCOUNTERS Encounter Location Date Diagnosis [place] [id number] [address] Jun, [place] [address] [address] 16 Jun, 2018 Essential hypertension I10 [facility] [address] [address] 14 Jun, 2018 Type 2 diabetes mellitus with diabetic neuropathy E11.40 and Mixed hyperlipidemia E78.2 [place] [address] [address] 12 Jun, 2018 Type 2 diabetes mellitus with diabetic neuropathy E11.40 ; Mixed hyperlipidemia E78.2 and Essential hypertension I10 [place] [address] [address] May, [facility] [address], [place] [address] May, [facility] [address] [place] [id number] [place] [address] Mar, Essential hypertension I10 and Type 2 diabetes mellitus with diabetic neuropathy E11.40 [facility] [address] [place] [id number] [place] [address] Mar, [facility] [address] [place] [id number] [place] [address] Mar, Essential hypertension I10 [facility] [address] [place] [id number] [place] [address] Mar, Type 2 diabetes mellitus with diabetic neuropathy E11.40 [facility] [address] [place] [id number] [place] [id number] Feb, Dental caries K02.9 [facility] [address] [place] [id number] [place] [address] Feb, [facility] [address] [place] [id number] [place] [address] Feb, Type 2 diabetes mellitus with diabetic neuropathy E11.40 ; Essential hypertension I10 ; Mixed hyperlipidemia E78.2 ; History of CVA (cerebrovascular accident) Z86.73 ; Other obesity due to excess calories E66.09 and Body mass index (BMI) of 31.0-31.9 in adult Z68.31 [facility] [address] [place] [id number] [place] [id number] Jan, Dental examination Z01.20 [facility] [id number] [place] [address] Jan, Type 2 diabetes mellitus with diabetic neuropathy E11.40 [facility] [address] [place] [id number] [place] [id number] Nov, Dental caries K02.9 [facility] [address] [place] [id number] [place] [address] Nov, Type 2 diabetes mellitus with diabetic neuropathy E11.40 [facility] [address] [place] [id number] [place] [address] Nov, Medicare annual wellness visit, initial Z00.00 ; Type 2 diabetes mellitus with diabetic neuropathy E11.40 ; MCFP current use of insulin Z79.4 ; 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 ; Essential hypertension I10 ; Mixed hyperlipidemia E78.2 ; History of CVA (cerebrovascular accident) Z86.73 ; History of renal failure Z87.448 ; Osteoarthritis of right knee M17.9 and Encounter for immunization Z23 [facility] [address] [place] [id number] [place] [id number] Nov, Dental examination Z01.20 [facility] [address] [address] Oct, Type 2 diabetes mellitus with diabetic neuropathy E11.40 ; meterman current use of insulin Z79.4 ; 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 ; History of renal failure Z87.448 ; Mild single current episode of major depressive disorder F32.0 ; Essential hypertension I10 ; Mixed hyperlipidemia E78.2 and Chronic idiopathic constipation K59.04 [facility] [address] [place] [id number] [place] [address] 15 Oct, 2017 Type 2 diabetes mellitus with diabetic neuropathy E11.40 ; Dental caries extending into pulp K02.9 ; Nausea and vomiting, intractability of vomiting not specified, unspecified vomiting type R11.2 and Chronic idiopathic constipation K59.04 [facility] [address] [place] [id number] [place] [address] Oct, Type 2 diabetes mellitus with diabetic neuropathy E11.40 [place] [address] [place] [id number] [place] [address] Aug, [facility] [address] [place] [id number] [place] [address] Jul, Type 2 diabetes mellitus with diabetic neuropathy E11.40 [facility] [address] [place] [id number] [place] [address] Jul, Muscle spasm of back M62.830 [facility] [id number] [place] [address] Jun, Type 2 diabetes mellitus with diabetic neuropathy E11.40 ; MCFP current use of insulin Z79.4 ; 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 ; History of renal failure Z87.448 and Mild single current episode of major depressive disorder F32.0 [facility] [address] [place] [id number] [place] [address] Mar, Type 2 diabetes mellitus with diabetic neuropathy E11.40 ; meterman current use of insulin Z79.4 ; [facility] C92.11 ; History of renal failure Z87.448 ; Mild single current episode of major depressive disorder F32.0 ; Pain in right knee M25.561 and Encounter for immunization Z23 [facility] [address] [place] [id number] [place] [address] Feb, Bloody discharge from right nipple N64.52 [facility] [address] [place] [id number] [place] [address] Feb, [facility] [address] [place] [id number] [place] [address] Feb, [facility] [id number] [place] [address] December, Type 2 diabetes mellitus with diabetic neuropathy E11.40 [facility] [address] [place] [id number] [place] [address] December, Type 2 diabetes mellitus with diabetic neuropathy E11.40 ; meterman current use of insulin Z79.4 ; [facility] C92.11 ; History of renal failure Z87.448 ; Mild single current episode of major depressive disorder F32.0 and Pain in right knee M25.561 [facility] [id number] [place] [address] Nov, Type 2 diabetes mellitus with diabetic neuropathy E11.40 ; meterman current use of insulin Z79.4 ; Chronic myeloid leukemia in [facility] C92.11 ; History of renal failure Z87.448 ; Mild single current episode of major depressive disorder F32.0 and Pain in right knee M25.561 [place] [id number] [place] [address] 16 Sep, 2016 Osteoarthritis of right knee M17.9 [place] [address] [place] [id number] [place] [address] 08 Sep, 2016 Type 2 diabetes mellitus with diabetic neuropathy E11.40 ; MCFP current use of insulin Z79.4 ; Chronic myeloid leukemia in [place] 6[place]32.11 ; History of renal failure Z87.448 ; Mild single current episode of major depressive disorder F32.0 and Pain in right knee M25.561 [place] [id number] [place] [address] Aug, Type 2 diabetes mellitus with diabetic neuropathy E11.40 [place] [address] [place] [id number] [place] [address] Jul, Type 2 diabetes mellitus with diabetic neuropathy E11.40 ; MCFP current use of insulin Z79.4 ; Chronic myeloid leukemia in [place] 6[place].11 ; History of renal failure Z87.448 and Mild single current episode of major depressive disorder F32.0 [place] [id number] [place] [address] Jun, [place] [address] [place] [id number] [place] [address] May, Type 2 diabetes mellitus with diabetic neuropathy E11.40 [place] [id number] [place] [address] May, Tendonitis M77.9 [facility] [address] [place] [id number] [place] [address] 04 May, 2016 Type 2 diabetes mellitus with diabetic neuropathy E11.40 ; MCFP current use of insulin Z79.4 ; Chronic myeloid leukemia in [place] 6[place]32.11 ; History of renal failure Z87.448 and Mild single current episode of major depressive disorder F32.0 [place] [address], [place] [address] 28 Apr, 2016 Type 2 diabetes mellitus with diabetic neuropathy E11.40 [facility] [address], [place] [address] 14 Apr, 2016 Type 2 diabetes mellitus with diabetic neuropathy E11.40 ; MCFP current use of insulin Z79.4 ; Chronic myeloid leukemia in [facility] C92.11 ; History of renal failure Z87.448 ; Mild single current episode of major depressive disorder F32.0 and Right foot pain M79.671 [place] [address] [place] [id number] [place] [address] Feb, History of renal failure Z87.448 [place] [address] [place] [address] Feb, Type 2 diabetes mellitus with diabetic neuropathy E11.40 ; MCFP current use of insulin Z79.4 ; Chronic myeloid leukemia in [facility] C92.11 ; History of renal failure Z87.448 and Mild single current episode of major depressive disorder F32.0 [place] [address] [place] [address] Feb, 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 [place] [address] [place] [address] Feb, Type 2 diabetes mellitus with diabetic neuropathy E11.40 ; meterman current use of insulin Z79.4 ; Chronic myeloid leukemia in [facility] C92.11 ; Essential hypertension I10 ; Mixed hyperlipidemia E78.2 ; History of CVA (cerebrovascular accident) Z86.73 ; History of renal failure Z87.448 and Mild single current episode of major depressive disorder F32.0 [place] [address], [place] [address] Jan, Type 2 diabetes mellitus with diabetic neuropathy E11.40 ; meterman current use of insulin Z79.4 ; Chronic myeloid leukemia in [facility] C92.11 ; Essential hypertension I10 ; Mixed hyperlipidemia E78.2 ; History of CVA (cerebrovascular accident) Z86.73 and History of renal failure Z87.448 [place] [address] [place] [id number] [place] [address] 15 Jan, [address] [facility] [id number] [place] [address] 15 Jan, 2016 Cellulitis of hand, left L03.114 [place] [address] [address] Nov, Osteoarthritis of right knee M17.9 [place] [address] [place] [id number] [place] [address] Sep, Type 2 diabetes mellitus with diabetic neuropathy E11.40 ; meterman current use of insulin Z79.4 ; [facility] C92.11 ; Essential hypertension I10 ; Mixed hyperlipidemia E78.2 and History of CVA (cerebrovascular accident) Z86.73 [place] [address] [place] [id number] [place] [address] Aug, Osteoarthritis of right knee M17.9 [place] [address] [place] [id number] [place] [address] Aug, Pain in right knee M25.561 [place] [address] [place] [id number] [place] [address] Jul, [place] [address] [place] [id number] [place] [address] Jun, [place] [address] [place] [id number] [place] [address] Jun, Axillary lump, right R22.31 [place] [address] [place] [id number] [place] [address] 04 Jun, 2015 Type 2 diabetes mellitus with diabetic neuropathy E11.40 ; Encounter for immunization Z23 ; meterman current use of insulin Z79.4 ; 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 ; Essential hypertension I10 ; Mixed hyperlipidemia E78.2 ; History of CVA (cerebrovascular accident) Z86.73 and Axillary lump, right R22.31 [facility] [address], [place] [address] Mar, Hyperlipidemia 272.4 [facility] [address] [place] [id number] [place] [address] Mar, Right knee pain 719.46 [facility] [address] [place] [id number] [place] [address] Mar, Rotator cuff impingement syndrome of left shoulder 726.10 [facility] [address] [place] [id number] [place] [address] Feb, [facility] [address] [place] [id number] [place] [address] Feb, Chronic myeloid leukemia, without mention of having achieved remission 205.10 ; Essential hypertension, malignant 401.0 ; Unspecified hereditary and idiopathic peripheral neuropathy 356.9 ; Diabetes mellitus type 2, controlled, with complications 250.90 ; Hyperlipidemia 272.4 and Pain, joint, shoulder, left 719.41 [facility] [address] [place] [address] Jan, [facility] [id number] [place] [address] Nov, [facility] [address], [place] [address] Nov, [facility] [address] [place] [id number] [place] [address] Oct, [facility] [address], [place] [address] Oct, [facility] [id number] [place] [address] Oct, [facility] [address], [place] [address] Oct, [facility] [address] [place] [id number] [place] [address] Oct, 2014 [facility] [address] [id number] [place] [address] Oct, [facility] [place] [facility] [address] [id number] [place] [address] Sep, 2014 [facility] [address] [id number] [place] [address] Sep, 2014 [facility] [place] [facility] [address] [id number] [place] [address] Aug, [facility] [address] [id number] [place] [address] Aug, [facility] [address] [id number] [place] [address] Jul, [facility] [place] [facility] [address] [id number] [place] [address] Jul, [facility] [address] [id number] [place] [address] Jul, [facility] [place] [facility] [address] [id number] [place] [address] Jul, [facility] [address] [id number] [place] [address] Jul, [facility] [place] [facility] [address] [id number] [place] [address] Jul, [facility] [place] [facility] [address] [id number] [place] [address] Jul, [facility] [place] [facility] [address] [id number] [place] [address] Jul, [facility] [place] [facility] [address] [id number] [place] [address] Jul, [facility] [place] [facility] [address] [id number] [place] [address] May, [facility] [place] [facility] [address] [id number] [place] [address] May, [facility] [place] [facility] [address] [id number] [place] [address] Apr, [facility] [place] [facility] [address] [id number] [place] [address] Apr, [facility] [place] [facility] [address] [id number] [place] [address] Apr, [facility] [place] [facility] [address] [id number] [place] [address] Apr, [facility] [place] [facility] [address] [id number] [place] [address] Feb, [facility] [place] [facility] [address] [id number] [place] [address] Feb, [facility] [place] [facility] [address] [id number] [place] [address] Feb, [facility] [place] [facility] [address] [id number] [place] [address] Feb, [facility] [place] [facility] [address] [id number] [place] [address] Jan, [facility] [place] [facility] [address] [id number] [place] [address] Jan, [facility] [place] [facility] [address] [id number] [place] [address] Jan, [facility] [place] [facility] [address] [id number] [place] [address] Jan, [facility] [place] [facility] [address] [id number] [place] [address] Jan, [facility] [place] [facility] [address] [id number] [place] [address] Jan, [facility] [place] [facility] [address] [id number] [place] [address] December, [facility] [place] [facility] [address] [id number] [place] [address] December, [facility] [place] [facility] [address] [id number] [place] [address] December, [facility] [place] [facility] [address] [id number] [place] [address] December, [facility] [place] [facility] [address] [id number] [place] [address] Nov, [facility] [place] [facility] [address] [id number] [place] [address] Nov, [facility] [place] [facility] [address] [id number] [place] [address] Nov, [facility] [place] [facility] [address] [id number] [place] [address] Nov, [facility] [place] [facility] [address] [id number] [place] [address] Oct, [facility] [place] [facility] [address] [id number] [place] [address] Oct, [facility] [place] [facility] [address] [id number] [place] [address] Oct, [facility] [place] [facility] [address] [id number] [place] [address] Oct, [facility] [place] [facility] [address] [id number] [place] [address] Oct, [facility] [place] [facility] [address] [id number] [place] [address] Oct, [facility] [place] [facility] [address] [id number] [place] [address] Sep, [facility] [place] [facility] [address] [id number] [place] [address] Sep, [facility] [place] [facility] [address] [id number] [place] [address] Sep, [facility] [place] [facility] [address] [id number] [place] [address] Sep, [facility] [place] [facility] [address] [id number] [place] [address] Aug, [facility] [place] [facility] [address] [id number] [place] [address] Aug, [facility] [address] [id number] [place] [address] Aug, [facility] [place] [facility] [address] [id number] [place] [address] Aug, [facility] [address] [id number] [place] [address] Aug, [facility] [address] [id number] [place] [address] Aug, [facility] [address] [id number] [place] [address] Jul, [facility] [address] [id number] [place] [address] Jul, [facility] [place] [facility] [address] [id number] [place] [address] Jul, [facility] [place] [facility] [address] [id number], [place] [address] Jul, [facility] [place] [facility] [address] [id number] [place] [address] Jun, [facility] [place] [facility] [address] [id number] [place] [address] Jun, [facility] [place] [facility] [address] [id number] [place] [address] May, [facility] [place] [facility] [address] [id number], [place] [address] Feb, [facility] [address] [id number] [place] [address] Feb, [facility] [address] [id number] [place] [address] Feb, [facility] [address] [id number] [place] [address] Jan, [facility] [place] [facility] [address] [id number] [place] [address] Jan, [facility] [address] [id number] [place] [address] Jan, [facility] [address] [id number] [place] [address] December, [facility] [address] [id number] [place] [address] December, [facility] [address] [id number] [place] [address] December, [facility] [address] [id number] [place] [address] Nov, [facility] [place] [facility] [address] [id number] [place] [address] Nov, [facility] [address] [id number] [place] [address] 16 Nov, 2012 [facility] [place] [facility] [address] [id number] [place] [address] 15 Nov, 2012 [facility] [place] [facility] [address] [id number] [place] [address] 10 Nov, 2012 [facility] [place] [facility] [address] [id number] [place] [address] 09 Nov, 2012 [facility] [place] [facility] [address] [id number] [place] [address] Oct, [facility] [place] [facility] [address] [id number] [place] [address] Oct, [facility] [address] [id number] [place] [address] Oct, [facility] [place] [facility] [address] [id number] [place] [address] 28 Aug, 2012 [facility] [address] [id number] [place] [address] Aug, [facility] [address] [id number] [place] [address] Aug, [facility] [address] [id number] [place] [address] Jul, [facility] [address] [id number] [place] [address] Jul, [facility] [address] [id number] [place] [address] Jun, [facility] [address] [id number] [place] [address] Jun, [facility] [address] [id number] [place] [address] Jun, [facility] [address] [id number] [place] [address] Jun, [facility] [place] [facility] [address] [id number] [place] [address] May, [facility] [place] [facility] [address] [id number] [place] [address] 30 May, 2012 [facility] [place] [facility] [address] [id number] [place] [address] 05 Apr, 2012 [facility] [place] [facility] [address] [id number] [place] [address] Apr, [facility] [place] [facility] [address] [id number] [place] [address] Feb, [facility] [place] [facility] [address] [id number] [place] [address] Feb, [facility] [place] [facility] [address] [id number] [place] [address] Nov, [facility] [place] [facility] [address] [id number] [place] [address] Oct, [facility] [place] [facility] [address] [id number] [place] [address] Sep, [facility] [place] [facility] [address] [id number] [place] [address] Sep, [facility] [place] [facility] [address] [id number] [place] [address] Sep, [facility] [place] [facility] [address] [id number] [place] [address] Aug, [facility] [place] [facility] [address] [id number] [place] [address] Aug, [facility] [place] [facility] [address] [id number] [place] [address] Aug, [facility] [place] [facility] [address] [id number] [place] [address] Jul, [facility] [place] [facility] [address] [id number] [place] [id number] Jul, [facility] [place] [facility] [address] [id number] [place] [address] Jun, [facility] [place] [facility] [address] [id number] [place] [address] Jun, [facility] [place] [facility] [address] [id number] [place] [address] Jun, [facility] [place] [facility] [address] [id number] [place] [address] May, [facility] [place] [facility] [address] [facility] [id number] [place] [address] 27 May, 2011 [facility] [address] [id number], [place] [address] May, [facility] [address] [id number], [place] [address] May, [facility] [address] [facility] [id number], [place] [address] May, [facility] [address] [id number], [place] [address] Feb, [facility] [address] [facility] [id number], [place] [address] Nov, [facility] [address] [id number], [place] [address] Oct, IMMUNIZATIONS No Known Immunizations SOCIAL HISTORY Never Assessed REASON FOR VISIT BS ck PLAN OF CARE VITAL SIGNS MEDICATIONS Unknown Medications RESULTS No Results PROCEDURES No Known procedures INSTRUCTIONS MEDICATIONS ADMINISTERED No Known Medications MEDICAL (GENERAL) HISTORY Type Description Date Medical History hypertension Medical History hyperlipidemia Medical History type II diabetes Medical History Arthritis-knees and hips Medical History stroke-05/2011 Medical History leukemia (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 Yu Surgical History dilatation and curettage 03/2000 Surgical History tubal ligation 1979 Surgical History right mastectomy 05/29/2018 Surgical History cholecystectomy 05/29/2018 Hospitalization History Via [facility] admit for stroke 05/2011 Hospitalization History Via [facility] for elevated blood sugars 09/2010 Hospitalization History surgery and RT mastectomy 05/29/2018
--- OUTSIDE RECORDS SUMMARY | 2019-01-08 02:07 | XMS REPORT | Continuity of Care Document ---
Author Organization Unknown Address Unknown Allergies Active Description Code Type Severity Reaction Onset Reported/Identified Relationship to Patient Clinical Status Yes Maalox Drug Allergy N/A N/A 10/17/2010 Yes Milk of Magnesia Drug Allergy N/A N/A 10/17/2010 Yes Maalox Drug Allergy 10/17/2010 Yes Milk of Magnesia Drug Allergy 10/17/2010 Yes nonsteroidal anti-inflammatory agent Drug Allergy 10/17/2010 Yes NKANo Known Allergies NKA Miscellaneous Allergy Unknown N/A 10/25/2015 Yes ibuprofen [id number] Drug Allergy Unknown N/A 03/29/2018 Yes naproxen [id number] Drug Allergy Unknown N/A 03/29/2018 Yes naproxen [id number] Drug Allergy Mild KIDNEY ISSUES 05/27/2018 Medications There is no data. 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 07/05/1012 VIRY MORAN Ot E11.9 TYPE 2 DIABETES MELLITUS WITHOUT COMPLIC 07/05/1012 VIRY MORAN Ot I10 ESSENTIAL (PRIMARY) HYPERTENSION 07/05/1012 VIRY MORAN Ot Z79.4 HALFWAY (CURRENT) USE OF INSULIN 07/05/1012 VIRY MORAN Ot Z79.899 OTHER HALFWAY (CURRENT) DRUG THERAPY 10/08/2010 Ot 250.02 DIAB ALONDRA WO COMPL, TYPE II OR UNSPEC TY 10/08/2010 Ot 285.9 ANEMIA NOS 10/08/2010 Ot 401.9 HYPERTENSION NOS 10/08/2010 Ot 593.9 RENAL URETERAL DIS NOS 10/08/2010 Ot V58.67 LONG-TERM (CURRENT) USE OF INSULIN 10/08/2010 Ot V58.69 OT MED,LT,CURRENT USE 10/17/2010 AMARJIT SAHU, TIN 250.02 DIABETES MELLITUS TYPE 2 - UNCOMPLICATED, UNCONTROLLED 10/17/2010 TIN OCASIO MD 585.9 CHRONIC RENAL FAILURE 10/17/2010 CATALNIO PEREZ DO 250.02 DIABETES MELLITUS TYPE 2 [...] TYPE 2 - UNCOMPLICATED, UNCONTROLLED 10/17/2010 DANIEL CRISTIAN MD 585.9 CHRONIC RENAL FAILURE 10/17/2010 CATALINO PEREZ DO 250.02 DIABETES MELLITUS TYPE 2 - UNCOMPLICATED, UNCONTROLLED 10/17/2010 CATALINO PEREZ DO 585.9 CHRONIC RENAL FAILURE 10/17/2010 TIN OCASIO MD 250.02 DIABETES MELLITUS TYPE 2 - UNCOMPLICATED, UNCONTROLLED 10/17/2010 TIN OCASIO MD 585.9 CHRONIC RENAL FAILURE 10/17/2010 MADL STORE TEAM MEMBER, DELLA L 250.02 DIABETES MELLITUS TYPE 2 - UNCOMPLICATED, UNCONTROLLED 10/17/2010 MADL STORE TEAM MEMBER, DELLA L 585.9 CHRONIC RENAL FAILURE 10/17/2010 MADL STORE TEAM MEMBER, DELLA L 250.02 DIABETES MELLITUS TYPE 2 - UNCOMPLICATED, UNCONTROLLED 10/17/2010 MADL STORE TEAM MEMBER, DELLA L 585.9 CHRONIC RENAL FAILURE 10/17/2010 MADL STORE TEAM MEMBER, DELLA L 250.02 DIABETES MELLITUS TYPE 2 - UNCOMPLICATED, UNCONTROLLED 10/17/2010 MADL STORE TEAM MEMBER, DELLA L 585.9 CHRONIC RENAL FAILURE 10/17/2010 MADL STORE TEAM MEMBER, DELLA L 250.02 DIABETES MELLITUS TYPE 2 - UNCOMPLICATED, UNCONTROLLED 10/17/2010 MADL STORE TEAM MEMBER, DELLA L 585.9 CHRONIC RENAL FAILURE 10/17/2010 250.02 DIABETES MELLITUS TYPE 2 - UNCOMPLICATED, UNCONTROLLED 10/17/2010 585.9 CHRONIC RENAL FAILURE 10/17/2010 MADL STORE TEAM MEMBER, DELLA L 250.02 DIABETES MELLITUS TYPE 2 - UNCOMPLICATED, UNCONTROLLED 10/17/2010 MADL STORE TEAM MEMBER, DELLA L 585.9 CHRONIC RENAL FAILURE 10/17/2010 [...] 2 WITH COMPLICATION 11/02/2010 CATALINO PEREZ DO 250.90 DIABETES MELLITUS TYPE 2 WITH COMPLICATION 11/02/2010 TIN OCASIO MD 250.90 DIABETES MELLITUS TYPE 2 WITH COMPLICATION 11/02/2010 EVERARDO STORE TEAM MEMBER, DELLA Kothari 250.90 DIABETES MELLITUS TYPE 2 WITH COMPLICATION 11/02/2010 MADL STORE TEAM MEMBER, DELLA L 250.90 DIABETES MELLITUS TYPE 2 WITH COMPLICATION 11/02/2010 MADL STORE TEAM MEMBERDELLA Black L 250.90 DIABETES MELLITUS TYPE 2 WITH COMPLICATION 11/02/2010 MADL STORE TEAM MEMBERDELLA Black L 250.90 DIABETES MELLITUS TYPE 2 WITH COMPLICATION 11/02/2010 250.90 DIABETES MELLITUS TYPE 2 WITH COMPLICATION 11/02/2010 MADL STORE TEAM MEMBERDELLA Black L 250.90 DIABETES MELLITUS TYPE 2 WITH COMPLICATION 11/02/2010 CHRIS PATINO CATALINO K 250.90 DIABETES MELLITUS TYPE 2 WITH COMPLICATION 11/02/2010 PEREZ WAYNE PATINOA K 250.90 DIABETES MELLITUS TYPE 2 WITH COMPLICATION 11/16/2010 TIN OCASIO MD 250.42 DIABETES WITH RENAL MANIFESTATIONS TYPE II OR UNSPECIFIED TYPE UNCONTROLLED 11/16/2010 TIN OCASIO MD 268.9 UNSPECIFIED VITAMIN D DEFICIENCY 11/16/2010 TIN OCASIO MD 782.3 EDEMA 11/16/2010 CHRIS PATINO CATALINO K 250.42 DIABETES WITH RENAL MANIFESTATIONS TYPE II OR UNSPECIFIED TYPE UNCONTROLLED 11/16/2010 CHRIS PATINO CATALINO K 268.9 UNSPECIFIED VITAMIN D DEFICIENCY [...] TIN OCASIO MD 782.3 EDEMA 11/16/2010 EVERARDO STORE TEAM MEMBER, DELLA L 250.42 DIABETES WITH RENAL MANIFESTATIONS TYPE II OR UNSPECIFIED TYPE UNCONTROLLED 11/16/2010 MADL STORE TEAM MEMBER, DELLA L 268.9 UNSPECIFIED VITAMIN D DEFICIENCY 11/16/2010 MADL STORE TEAM MEMBER, DELLA L 782.3 EDEMA 11/16/2010 MADL STORE TEAM MEMBER, DELLA L 250.42 DIABETES WITH RENAL MANIFESTATIONS TYPE II OR UNSPECIFIED TYPE UNCONTROLLED 11/16/2010 MADL STORE TEAM MEMBER, DELLA L 268.9 UNSPECIFIED VITAMIN D DEFICIENCY 11/16/2010 MADL STORE TEAM MEMBER, DELLA L 782.3 EDEMA 11/16/2010 MADL STORE TEAM MEMBER, DELLA L 250.42 DIABETES WITH RENAL MANIFESTATIONS TYPE II OR UNSPECIFIED TYPE UNCONTROLLED 11/16/2010 MADL STORE TEAM MEMBER, DELLA L 268.9 UNSPECIFIED VITAMIN D DEFICIENCY 11/16/2010 MADL STORE TEAM MEMBER, DELLA L 782.3 EDEMA 11/16/2010 MADL STORE TEAM MEMBER, DELLA L 250.42 DIABETES WITH RENAL MANIFESTATIONS TYPE II OR UNSPECIFIED TYPE UNCONTROLLED 11/16/2010 MADL STORE TEAM MEMBER, DELLA L 268.9 UNSPECIFIED VITAMIN D DEFICIENCY 11/16/2010 MADL STORE TEAM MEMBER, DELLA L 782.3 EDEMA 11/16/2010 250.42 DIABETES WITH RENAL MANIFESTATIONS TYPE II OR UNSPECIFIED TYPE UNCONTROLLED 11/16/2010 268.9 UNSPECIFIED VITAMIN D DEFICIENCY 11/16/2010 782.3 EDEMA 11/16/2010 MADL STORE TEAM MEMBER, DELLA L 250.42 DIABETES WITH RENAL MANIFESTATIONS TYPE II OR UNSPECIFIED TYPE UNCONTROLLED 11/16/2010 MADL STORE TEAM MEMBER, DELLA L 268.9 UNSPECIFIED VITAMIN D DEFICIENCY 11/16/2010 MADL STORE TEAM MEMBER, DELLA L 782.3 EDEMA 11/16/2010 PEREZ DO, [...] 368.8 OTHER SPECIFIED VISUAL DISTURBANCES 02/22/2011 MADL STORE TEAM MEMBER, DELLA L 357.2 POLYNEUROPATHY IN DIABETES 02/22/2011 MADL STORE TEAM MEMBER, DELLA L 368.8 OTHER SPECIFIED VISUAL DISTURBANCES 02/22/2011 MADL STORE TEAM MEMBER, DELLA L 357.2 POLYNEUROPATHY IN DIABETES 02/22/2011 MADL STORE TEAM MEMBER, DELLA L 368.8 OTHER SPECIFIED VISUAL DISTURBANCES 02/22/2011 MADL STORE TEAM MEMBER, DELLA L 357.2 POLYNEUROPATHY IN DIABETES 02/22/2011 MADL STORE TEAM MEMBER, DELLA L 368.8 OTHER SPECIFIED VISUAL DISTURBANCES 02/22/2011 MADL STORE TEAM MEMBER, DELLA L 357.2 POLYNEUROPATHY IN DIABETES 02/22/2011 MADL STORE TEAM MEMBER, DELLA L 368.8 OTHER SPECIFIED VISUAL DISTURBANCES 02/22/2011 357.2 POLYNEUROPATHY IN DIABETES 02/22/2011 368.8 OTHER SPECIFIED VISUAL DISTURBANCES 02/22/2011 MADL STORE TEAM MEMBER, DELLA L 357.2 POLYNEUROPATHY IN DIABETES 02/22/2011 MADL STORE TEAM MEMBER, DELLA L 368.8 OTHER SPECIFIED VISUAL DISTURBANCES [...] OF CEREBROVASCULAR DISEASE, 05/31/2011 Ot 438.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,HEMIPLEGIA AFFECTING 05/31/2011 Ot 438.89 OTH LATE EFFECT- CEREBROVASCULAR DISEASE 05/31/2011 Ot 780.4 DIZZINESS AND GIDDINESS [...] LATE EFFECTS OF CEREBROVASCULAR DISEASE 06/01/2011 MADL STORE TEAM MEMBER, DELLA L 438.9 UNSPECIFIED LATE EFFECTS OF CEREBROVASCULAR DISEASE 06/01/2011 MADL STORE TEAM MEMBER, DELLA L 438.9 UNSPECIFIED LATE EFFECTS OF CEREBROVASCULAR DISEASE 06/01/2011 MADL STORE TEAM MEMBER, DELLA L 438.9 UNSPECIFIED LATE EFFECTS OF CEREBROVASCULAR DISEASE 06/01/2011 MADL STORE TEAM MEMBER, DELLA L 438.9 UNSPECIFIED LATE EFFECTS OF CEREBROVASCULAR DISEASE 06/01/2011 438.9 UNSPECIFIED LATE EFFECTS OF CEREBROVASCULAR DISEASE 06/01/2011 MADL STORE TEAM MEMBER DELLA L 438.9 UNSPECIFIED LATE EFFECTS OF CEREBROVASCULAR DISEASE 06/01/2011 PEREZ DO CATALINO K 438.9 UNSPECIFIED LATE EFFECTS OF CEREBROVASCULAR DISEASE 06/01/2011 PEREZ DO CATALINO K 438.9 UNSPECIFIED LATE EFFECTS OF CEREBROVASCULAR DISEASE 07/04/2011 TIN OCASIO MD 564.00 UNSPECIFIED CONSTIPATION 07/04/2011 TIN OCASIO MD 788.20 Retention Of Urine Unspecified 07/04/2011 CATALINO PEREZ DO K 564.00 UNSPECIFIED CONSTIPATION 07/04/2011 PEREZ WAYNE PATINOA K 788.20 Retention Of Urine Unspecified 07/04/2011 [...] 07/04/2011 788.20 Retention Of Urine Unspecified 07/04/2011 JONNIE MD, DANIEL M 564.00 UNSPECIFIED CONSTIPATION 07/04/2011 DANIEL CRISTINA MD [...] 788.20 Retention Of Urine Unspecified 07/04/2011 MADL STORE TEAM MEMBER, DELLA L 564.00 UNSPECIFIED CONSTIPATION 07/04/2011 MADL STORE TEAM MEMBER, DELLA L 788.20 Retention Of Urine Unspecified 07/04/2011 MADL STORE TEAM MEMBER, DELLA L 564.00 UNSPECIFIED CONSTIPATION 07/04/2011 MADL STORE TEAM MEMBER, DELLA L 788.20 Retention Of Urine Unspecified 07/04/2011 MADL STORE TEAM MEMBER, DELLA L 564.00 UNSPECIFIED CONSTIPATION 07/04/2011 MADL STORE TEAM MEMBER, DELLA L 788.20 Retention Of Urine Unspecified 07/04/2011 MADL STORE TEAM MEMBER, DELLA L 564.00 UNSPECIFIED CONSTIPATION 07/04/2011 MADL STORE TEAM MEMBER, DELLA L 788.20 Retention Of Urine Unspecified 07/04/2011 564.00 UNSPECIFIED CONSTIPATION 07/04/2011 788.20 Retention Of Urine Unspecified 07/04/2011 MADL STORE TEAM MEMBER, DELLA L 564.00 UNSPECIFIED CONSTIPATION 07/04/2011 MADL STORE TEAM MEMBER, DELLA L 788.20 Retention Of Urine Unspecified [...] CRISTINA MD 788.41 Urinary Frequency 11/16/2011 PEREZ DO CATALINO K 788.41 Urinary Frequency 11/16/2011 TIN OCASIO MD 788.41 Urinary Frequency 11/16/2011 MADL STORE TEAM MEMBER, DELLA L 788.41 Urinary Frequency 11/16/2011 MADL STORE TEAM MEMBER, DELLA L 788.41 Urinary Frequency 11/16/2011 MADL STORE TEAM MEMBER, DELLA L 788.41 Urinary Frequency 11/16/2011 MADL STORE TEAM MEMBER, DELLA L 788.41 Urinary Frequency 11/16/2011 788.41 Urinary Frequency 11/16/2011 MADL STORE TEAM MEMBER, DELLA L 788.41 Urinary Frequency 11/16/2011 PEREZ DO, CATALINO K 788.41 Urinary Frequency 11/16/2011 PEREZ DO, CATALINO K 788.41 Urinary Frequency 06/26/2012 TIN OCASIO MD 401.1 ESSENTIAL HYPERTENSION BENIGN 06/26/2012 TIN OCASIO MD 729.5 pain in the right foot 06/26/2012 TIN OCASIO MD 787.20 difficulty swallowing (dysphagia) 06/26/2012 WAYNE PEREZ DOA K 401.1 ESSENTIAL HYPERTENSION BENIGN 06/26/2012 WAYNE PEREZ DOA K 729.5 pain in the right foot 06/26/2012 WAYNE PEREZ DOA K 787.20 difficulty swallowing (dysphagia) 06/26/2012 DANIEL [...] MD 787.20 difficulty swallowing (dysphagia) 06/26/2012 PEREZ DO CATALINO K 401.1 ESSENTIAL HYPERTENSION BENIGN 06/26/2012 PEREZ DO CATALINO K 729.5 pain in the right foot 06/26/2012 PEREZ DO CATALINO K 787.20 difficulty swallowing (dysphagia) 06/26/2012 TIN OCASIO MD 401.1 ESSENTIAL HYPERTENSION BENIGN 06/26/2012 TIN OCASIO MD 729.5 pain in the right foot 06/26/2012 TIN OCASIO MD 787.20 difficulty swallowing (dysphagia) 06/26/2012 JOSE MCGEE APRNA L 401.1 ESSENTIAL HYPERTENSION BENIGN 06/26/2012 JOSE MCGEE APRNA L 729.5 pain in the right foot 06/26/2012 SHANTELL MCGEE APRNNYA L 787.20 difficulty swallowing (dysphagia) 06/26/2012 MADL STORE TEAM MEMBER, DELLA L 401.1 ESSENTIAL HYPERTENSION BENIGN 06/26/2012 MADL STORE TEAM MEMBER, DELLA L 729.5 pain in the right foot 06/26/2012 MADL STORE TEAM MEMBER, DELLA L 787.20 difficulty swallowing (dysphagia) 06/26/2012 MADL STORE TEAM MEMBER, DELLA L 401.1 ESSENTIAL HYPERTENSION BENIGN 06/26/2012 MADL STORE TEAM MEMBER, DELLA L 729.5 pain in the right foot 06/26/2012 MADL STORE TEAM MEMBER, DELLA L 787.20 difficulty swallowing (dysphagia) 06/26/2012 MADL STORE TEAM MEMBER, DELLA L 401.1 ESSENTIAL HYPERTENSION BENIGN 06/26/2012 MADL STORE TEAM MEMBER, DELLA L 729.5 pain in the right foot 06/26/2012 MADL STORE TEAM MEMBER, DELLA L 787.20 difficulty swallowing (dysphagia) 06/26/2012 401.1 ESSENTIAL HYPERTENSION BENIGN 06/26/2012 729.5 pain in the right foot 06/26/2012 787.20 difficulty swallowing (dysphagia) 06/26/2012 MADL STORE TEAM MEMBER, DELLA L 401.1 ESSENTIAL HYPERTENSION BENIGN 06/26/2012 MADL STORE TEAM MEMBER, DELLA L 729.5 pain in the right foot 06/26/2012 MADL STORE TEAM MEMBER, DELLA L 787.20 difficulty swallowing (dysphagia) 06/26/2012 [...] CATALINO K 787.20 difficulty swallowing (dysphagia) 09/02/2012 PEREZ DO CATALINO K 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 [...] MD 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 09/02/2012 CHRIS PATINO CATALINO K 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 09/02/2012 TIN OCASIO MD 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 09/02/2012 MADL STORE TEAM MEMBER, DELLA L 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 09/02/2012 MADL STORE TEAM MEMBER, DELLA L 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 09/02/2012 MADL STORE TEAM MEMBER, DELLA L 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 09/02/2012 MADL STORE TEAM MEMBER, DELLA L 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 09/02/2012 MADL STORE TEAM MEMBER, DELLA L 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 09/02/2012 CHRIS PATINO CATALINO K 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 09/02/2012 PEREZ DO CATALINO K 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 [...] 10/16/2012 DANIEL CRISTINA MD 288.60 LEUKOCYTOSIS 10/16/2012 LIONEL CRISTINA MDA M 401.0 ESSENTIAL HYPERTENSION MALIGNANT 10/16/2012 JONNIE SAHU, DANIEL M 272.4 HYPERLIPIDEMIA 10/16/2012 JNONIE SAHU, DANIEL Rawls 288.60 LEUKOCYTOSIS 10/16/2012 JONNIE SAHU, DANIEL M 401.0 ESSENTIAL HYPERTENSION MALIGNANT 10/16/2012 PEREZ DO, CATALINO K 272.4 HYPERLIPIDEMIA 10/16/2012 PEREZ DO, CATALINO K 288.60 LEUKOCYTOSIS 10/16/2012 PEREZ DO, CATALINO K 401.0 ESSENTIAL HYPERTENSION MALIGNANT 10/16/2012 TIN OCASIO MD 272.4 HYPERLIPIDEMIA 10/16/2012 TIN OCASIO MD 288.60 LEUKOCYTOSIS 10/16/2012 TIN OCASIO MD 401.0 ESSENTIAL HYPERTENSION MALIGNANT 10/16/2012 MADL STORE TEAM MEMBER, DELLA L 272.4 HYPERLIPIDEMIA 10/16/2012 MADL STORE TEAM MEMBER, DELLA L 288.60 LEUKOCYTOSIS 10/16/2012 MADL STORE TEAM MEMBER, DELLA L 401.0 ESSENTIAL HYPERTENSION MALIGNANT 10/16/2012 MADL STORE TEAM MEMBER, DELLA L 272.4 HYPERLIPIDEMIA 10/16/2012 MADL STORE TEAM MEMBER, DELLA L 288.60 LEUKOCYTOSIS 10/16/2012 MADL STORE TEAM MEMBER, DELLA L 401.0 ESSENTIAL HYPERTENSION MALIGNANT 10/16/2012 MADL STORE TEAM MEMBER, DELLA L 272.4 HYPERLIPIDEMIA 10/16/2012 MADL STORE TEAM MEMBER, DELLA L 288.60 LEUKOCYTOSIS 10/16/2012 MADL STORE TEAM MEMBER, DELLA L 401.0 ESSENTIAL HYPERTENSION MALIGNANT 10/16/2012 MADL STORE TEAM MEMBER, DELLA L 272.4 HYPERLIPIDEMIA 10/16/2012 MADL STORE TEAM MEMBER, DELLA L 288.60 LEUKOCYTOSIS 10/16/2012 MADL STORE TEAM MEMBER, DELLA L 401.0 ESSENTIAL HYPERTENSION MALIGNANT 10/16/2012 MADL STORE TEAM MEMBER, DELLA L 272.4 HYPERLIPIDEMIA 10/16/2012 MADL STORE TEAM MEMBER, DELLA L 288.60 LEUKOCYTOSIS 10/16/2012 MADL STORE TEAM MEMBER, DELLA L 401.0 ESSENTIAL HYPERTENSION MALIGNANT 10/16/2012 PEREZ DO, CATALINO K 272.4 HYPERLIPIDEMIA 10/16/2012 PEREZ DO, CATALINO K 288.60 LEUKOCYTOSIS 10/16/2012 PEREZ DO, CATALINO K 401.0 ESSENTIAL HYPERTENSION MALIGNANT 10/16/2012 PEREZ DO, CATALINO K 272.4 HYPERLIPIDEMIA 10/16/2012 CHRIS PATINO, CATALINO K 288.60 LEUKOCYTOSIS 10/16/2012 CHRIS PATINO, CATALINO K 401.0 ESSENTIAL HYPERTENSION MALIGNANT 12/06/2012 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) 12/06/2012 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) 12/06/2012 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) 12/06/2012 DANIEL CRISTINA MD 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) 12/06/2012 DANIEL CRISTINA MD 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) 12/06/2012 CATALINO PEREZ DO K 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) 12/06/2012 TIN OCASIO MD 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) 12/06/2012 MADL STORE TEAM MEMBER, DELLA L 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) 12/06/2012 MADL STORE TEAM MEMBER, DELLA L 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) 12/06/2012 MADL STORE TEAM MEMBER, DELLA L 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) 12/06/2012 MADL STORE TEAM MEMBER, DELLA L 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) 12/06/2012 MADL STORE TEAM MEMBER, DELLA L 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) 12/06/2012 CATALINO PEREZ DO K 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) 12/06/2012 CHRIS PATINO CATALINO K 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) 01/23/2013 373.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 EXTERNUM 01/23/2013 DANIEL CRISTINA MD 373.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 EXTERNUM 01/23/2013 DANIEL CRISTINA MD 373.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 EXTERNUM 01/23/2013 CATALINO PEREZ DO K 373.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 EXTERNUM 01/23/2013 TIN OCASIO MD 373.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 EXTERNUM 01/23/2013 MADL STORE TEAM MEMBER, DELLA L 373.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 EXTERNUM 01/23/2013 MADL STORE TEAM MEMBER, DELLA L 373.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 EXTERNUM 01/23/2013 MADL STORE TEAM MEMBER, DELLA L 373.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 EXTERNUM 01/23/2013 MADL STORE TEAM MEMBER, DELLA L 373.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 EXTERNUM 01/23/2013 MADL STORE TEAM MEMBER, DELLA L 373.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 EXTERNUM 01/23/2013 PEREZ DO, CATALINO K 373.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 EXTERNUM 01/23/2013 PEREZ DO, CATALINO K 373.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 EXTERNUM 03/11/2013 VIRY MORAN N Ot 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, 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 05/07/2013 JONNIE SAHU, DANIEL Rawls V03.82 PPV23 (PNEUMOVAX) DX 05/07/2013 DANIEL CRISTINA MD V03.82 PPV23 (PNEUMOVAX) DX 05/07/2013 PEREZ DO, CATALINO Matute V03.82 PPV23 (PNEUMOVAX) DX 05/07/2013 TIN OCASIO MD V03.82 PPV23 (PNEUMOVAX) DX 05/07/2013 [facility] DELLA L V03.82 PPV23 (PNEUMOVAX) DX 05/07/2013 MADL STORE TEAM MEMBER, DELLA L V03.82 PPV23 (PNEUMOVAX) DX 05/07/2013 MADL STORE TEAM MEMBER, DELLA L V03.82 PPV23 (PNEUMOVAX) DX 05/07/2013 MADL STORE TEAM MEMBER, DELLA L V03.82 PPV23 (PNEUMOVAX) DX 05/07/2013 MADL STORE TEAM MEMBER, DELLA L V03.82 PPV23 (PNEUMOVAX) DX 05/07/2013 [...] FOOT EXCEPT TOE(S) ALONE COMPLICATED 08/28/2013 MADL STORE TEAM MEMBER, DELLA L 682.7 CELLULITIS AND ABSCESS OF FOOT EXCEPT TOES 08/28/2013 MADL STORE TEAM MEMBER, DELLA L 892.1 OPEN WOUND OF FOOT EXCEPT TOE(S) ALONE COMPLICATED 08/28/2013 MADL STORE TEAM MEMBER, DELLA L 682.7 CELLULITIS AND ABSCESS OF FOOT EXCEPT TOES 08/28/2013 MADL STORE TEAM MEMBER, DELLA L 892.1 OPEN WOUND OF FOOT EXCEPT TOE(S) ALONE COMPLICATED 08/28/2013 MADL STORE TEAM MEMBER, DELLA L 682.7 CELLULITIS AND ABSCESS OF FOOT EXCEPT TOES 08/28/2013 MADL STORE TEAM MEMBER, DELLA L 892.1 OPEN WOUND OF FOOT EXCEPT TOE(S) ALONE COMPLICATED 08/28/2013 MADL STORE TEAM MEMBER, DELLA L 682.7 CELLULITIS AND ABSCESS OF FOOT EXCEPT TOES 08/28/2013 MADL STORE TEAM MEMBER, DELLA L 892.1 OPEN WOUND OF FOOT EXCEPT TOE(S) ALONE COMPLICATED 08/28/2013 MADL STORE TEAM MEMBER, DELLA L 682.7 CELLULITIS AND ABSCESS OF FOOT EXCEPT TOES 08/28/2013 MADL STORE TEAM MEMBER, DELLA L 892.1 OPEN WOUND OF FOOT EXCEPT TOE(S) ALONE COMPLICATED 08/28/2013 PEREZ DO, CATALINO K 682.7 CELLULITIS AND ABSCESS OF FOOT EXCEPT TOES 08/28/2013 PREEZ DO, CATALINO K 892.1 OPEN WOUND OF FOOT EXCEPT TOE(S) ALONE COMPLICATED 08/28/2013 PEREZ DO, CATALINO K 682.7 CELLULITIS AND ABSCESS OF FOOT EXCEPT TOES 08/28/2013 PEREZ DO, CATALINO K 892.1 OPEN WOUND OF FOOT EXCEPT TOE(S) ALONE COMPLICATED 10/01/2013 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 STORE TEAM MEMBER Ot 338.19 OTHER ACUTE PAIN 10/01/2013 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 STORE TEAM MEMBER Ot 724.2 LUMBAGO 02/15/2014 Ot 250.00 DIAB ALONDRA WO COMPL, TYPE II OR UNSPEC TY 02/15/2014 Ot 401.9 HYPERTENSION NOS 02/15/2014 Ot 530.81 ESOPHAGEAL REFLUX 02/15/2014 Ot 586 RENAL FAILURE NOS 02/15/2014 Ot 716.90 ARTHROPATHY NOS- UNSPEC 02/15/2014 Ot 719.41 JOINT PAIN-SHLDER 02/15/2014 Ot 840.9 SPRAIN SHOULDER/ARM NOS 02/15/2014 Ot 842.10 SPRAIN OF HAND NOS 02/15/2014 Ot E928.9 ACCIDENT NOS 02/15/2014 Ot V12.54 PERSONAL HX OF TIA, CEREBRAL INFARCTION 02/15/2014 Ot V58.63 LONG-TERM(CURRENT)USE OF ANTIPLATELET/AN 02/15/2014 Ot V58.66 LONG-TERM (CURRENT) USE OF ASPIRIN 02/15/2014 Ot V58.69 OTH MED,LT,CURRENT USE 04/08/2014 MADL STORE TEAM MEMBER, DELLA L V05.8 ZOSTAVAX DX 04/08/2014 MADL STORE TEAM MEMBER, DELLA L V05.8 ZOSTAVAX DX 04/08/2014 MADL STORE TEAM MEMBER, DELLA L V05.8 ZOSTAVAX DX 04/08/2014 PEREZ DO, CATALINO K V05.8 ZOSTAVAX DX 04/08/2014 PEREZ DO, CATALINO K V05.8 ZOSTAVAX DX 07/07/2014 VIRY MORAN Ot 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, 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 07/07/2014 VIRY MORAN Ot 250.00 DIAB ALONDRA WO COMPL, TYPE II OR UNSPEC TY 07/07/2014 VIRY MORAN Ot V58.67 LONG-TERM (CURRENT) USE OF INSULIN 07/07/2014 VIRY MORAN Ot V58.69 OTH MED,LT,CURRENT USE 08/05/2014 MAUDE NG NUISANCE WILDLIFE 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 Ot V76.12 08/05/2014 MAUDE NG NUISANCE WILDLIFE 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 Ot 204.10 08/05/2014 MAUDE NG NUISANCE WILDLIFE 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 Ot 250.00 08/05/2014 NGMAUDE Vernon NUISANCE WILDLIFE 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 Ot V58.67 08/05/2014 MAUDE NG NUISANCE WILDLIFE 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 Ot V58.69 08/12/2014 MAUDE NG NUISANCE WILDLIFE 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 Ot 793.80 09/05/2014 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 STORE TEAM MEMBER Ot 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 SYNOVIAL CYST 09/05/2014 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 STORE TEAM MEMBER Ot 924.11 CONTUSION OF KNEE 09/05/2014 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 STORE TEAM MEMBER Ot 959.7 LOWER LEG INJURY NOS 09/05/2014 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 STORE TEAM MEMBER Ot E000.8 OTHER EXTERNAL CAUSE STATUS 09/05/2014 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 STORE TEAM MEMBER Ot E849.0 ACCIDENT IN HOME 09/05/2014 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 STORE TEAM MEMBER Ot E888.9 FALL NOS 10/30/2014 Ot 272.4 [...] 03/11/2015 SASHA, BOBAN N Ot V58.67 03/11/2015 SSAHA, BOBAN N Ot V58.69 03/18/2015 SASHA, BOBAN N Ot 204.10 03/18/2015 SASHA, BOBAN N Ot 250.00 03/18/2015 SASHA, BOBAN N Ot V58.67 03/18/2015 SASHA, BOBAN N Ot V58.69 03/19/2015 SASHA, BOBAN N Ot 204.10 03/19/2015 SASHA, BOBAN N Ot 250.00 03/19/2015 SASHA, BOBAN N Ot V58.67 03/19/2015 SASHA, BOBAN N Ot V58.69 03/24/2015 SASHA, BOBAN N Ot 204.10 03/24/2015 VIRY MORAN N Ot 250.00 03/24/2015 VIRY MORAN N Ot V58.67 03/24/2015 VIRY MORAN N Ot V58.69 04/27/2015 VIRY MORAN N Ot 204.10 04/27/2015 VIRY MORAN N Ot 250.00 04/27/2015 VIRY MORAN N Ot V58.67 04/27/2015 VIRY MORAN N Ot V58.69 05/05/2015 VIRY MORAN N Ot 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, 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 05/05/2015 VIRY MORAN N Ot 250.00 DIAB ALONDRA WO COMPL, TYPE II OR UNSPEC TY 05/05/2015 VIRY MORAN N Ot V58.67 LONG-TERM (CURRENT) USE OF INSULIN 05/05/2015 VIRY MORAN Ot V58.69 OTH MED,LT,CURRENT USE 07/07/2015 DELLA MCGEE NUISANCE WILDLIFE 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 Ot R22.31 09/30/2015 MAUDE NG NUISANCE WILDLIFE 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 Ot C91.10 09/30/2015 MAUDE NG NUISANCE WILDLIFE 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 Ot E11.9 09/30/2015 MAUDE NG NUISANCE WILDLIFE 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 Ot I10 09/30/2015 MAUDE NG NUISANCE WILDLIFE 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 Ot Z79.4 09/30/2015 MAUDE NG NUISANCE WILDLIFE 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 Ot Z79.899 10/21/2015 MARY SAHU, CHITO Rawls Ot Z01.818 ENCOUNTER FOR OTHER PREPROCEDURAL EXAMIN 10/25/2015 MARY SAHU, CHITO Rawls Ot E11.9 TYPE 2 DIABETES MELLITUS WITHOUT COMPLIC 10/25/2015 MARY SAHU, CHITO Rawls Ot K57.90 DVRTCLOS OF INTEST, PART UNSP, W/O PERF 10/25/2015 CHITO HERNANDEZ MD Ot K62.1 RECTAL POLYP 10/25/2015 CHITO HERNANDEZ MD Ot Z12.11 ENCOUNTER FOR SCREENING FOR MALIGNANT NE 10/26/2015 CHITO HERNANDEZ MD Ot E11.9 10/26/2015 CHITO HERNANDEZ MD Ot K57.90 10/26/2015 CHITO HERNANDEZ MD, Ot K62.1 10/26/2015 CHITO HERNANDEZ MD Ot Z12.11 12/23/2015 MAUDE NG Ot 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 LYMPHOCYTIC LEUK OF B-CELL TYPE 12/23/2015 MAUDE NGP Ot E11.9 TYPE 2 DIABETES MELLITUS WITHOUT COMPLIC 12/23/2015 MAUDE NGP Ot I10 ESSENTIAL (PRIMARY) HYPERTENSION 12/23/2015 MAUDE NG Ot Z79.4 HALFWAY (CURRENT) USE OF INSULIN 12/23/2015 MAUDE NG Ot Z79.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 01/03/2016 JORGE LUIS TYLER MD, Ot E11.9 TYPE 2 DIABETES MELLITUS WITHOUT COMPLIC 01/03/2016 JORGE LUIS TYLER MD Ot S60.222A CONTUSION OF LEFT HAND, INITIAL ENCOUNTE 01/03/2016 JORGE LUIS TYLER MD Ot W22.8XXA STRIKING AGAINST OR STRUCK BY OTHER OBJE 01/03/2016 JORGE LUIS TYLER MD Ot Y92.[address] [facility] (PRIVATE 01/03/2016 JORGE LUIS TYLER MD Ot Y99.8 OTHER EXTERNAL CAUSE STATUS 01/03/2016 JORGE LUIS TYLER MD, Ot Z79.4 HALFWAY (CURRENT) USE OF INSULIN 01/06/2016 JORGE LUIS TYLER MD Ot E11.9 TYPE 2 DIABETES MELLITUS WITHOUT COMPLIC 01/06/2016 JORGE LUIS TYLER MD Ot S60.222A CONTUSION OF LEFT HAND, INITIAL ENCOUNTE 01/06/2016 JORGE LUIS TYLER MD Ot W22.8XXA STRIKING AGAINST OR STRUCK BY OTHER OBJE 01/06/2016 JORGE LUIS TYLER MD Ot Y92.[address] [facility] (PRIVATE 01/06/2016 JORGE LUIS TYLER MD Ot Y99.8 OTHER EXTERNAL CAUSE STATUS 01/06/2016 JORGE LUIS TYLER MD, Ot Z79.4 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 REPAIRER (CURRENT) USE OF INSULIN 01/21/2016 MAUDE NG Ot 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 LYMPHOCYTIC LEUK OF B-CELL TYPE 01/21/2016 MAUDE NG Ot E11.9 TYPE 2 DIABETES MELLITUS WITHOUT COMPLIC 01/21/2016 NG, HILAH S NUISANCE WILDLIFE 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 Ot I10 ESSENTIAL (PRIMARY) HYPERTENSION 01/21/2016 MAUDE NG NUISANCE WILDLIFE 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 Ot Z79.4 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 REPAIRER (CURRENT) USE OF INSULIN 01/21/2016 MAUDE NG NUISANCE WILDLIFE 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 Ot Z79.899 OTHER HALFWAY (CURRENT) DRUG THERAPY 03/16/2016 SASHA VIRY Black Ot 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 LYMPHOCYTIC LEUK OF B-CELL TYPE 03/16/2016 VIRY MORAN Ot E11.9 TYPE 2 DIABETES MELLITUS WITHOUT COMPLIC 03/16/2016 VIRY MORAN Ot I10 ESSENTIAL (PRIMARY) HYPERTENSION 03/16/2016 SASHAVIRY Ot Z79.4 HALFWAY (CURRENT) USE OF INSULIN 03/16/2016 VIRY MORAN Ot Z79.899 OTHER HALFWAY (CURRENT) DRUG THERAPY 04/04/2016 Ot 788.20 RETENTION OF URINE NOS 04/04/2016 Ot 787.20 DYSPHAGIA, UNSPECIFIED 04/04/2016 VIRY MORAN Ot 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, 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 04/04/2016 MAUDE NG NUISANCE WILDLIFE 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 Ot 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, 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 04/04/2016 MAUDE NG S NUISANCE WILDLIFE 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 Ot 250.00 DIAB ALONDRA WO COMPL, TYPE II OR UNSPEC TY 04/04/2016 MAUDE NG S NUISANCE WILDLIFE 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 Ot 438.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,HEMIPLEGIA AFFECTING 04/04/2016 MAUDE NG S NUISANCE WILDLIFE 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 Ot 780.79 OTH MALAISE FATIGUE 04/04/2016 MAUDE NG S NUISANCE WILDLIFE 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 Ot V58.67 LONG-TERM (CURRENT) USE OF INSULIN 04/04/2016 MAUDE NG S NUISANCE WILDLIFE 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 Ot V58.69 OTH MED,LT,CURRENT USE 04/04/2016 MAUDE NG S NUISANCE WILDLIFE 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 Ot 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, 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 04/04/2016 MAUDE NG S NUISANCE WILDLIFE 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 Ot V58.69 OTH MED,LT,CURRENT USE 04/04/2016 VIRY MOARN Ot 729.5 PAIN IN LIMB 04/04/2016 MAUDE NG S NUISANCE WILDLIFE 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 Ot 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, 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 04/04/2016 MAUDE NG S NUISANCE WILDLIFE 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 Ot 250.00 DIAB ALONDRA WO COMPL, TYPE II OR UNSPEC TY 04/04/2016 MAUDE NG NUISANCE WILDLIFE 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 Ot V58.67 LONG-TERM (CURRENT) USE OF INSULIN 04/04/2016 MAUDE NG NUISANCE WILDLIFE 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 Ot V58.69 OTH MED,LT,CURRENT USE 04/04/2016 MAUDE NG Ot V76.12 OTH SCREEN MAMMO-MALIGN NEOPLASM OF SILVINA 04/04/2016 MAUDE NG NUISANCE WILDLIFE 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 Ot 793.80 UNSPEC ABNORMAL MAMMOGRAM 04/04/2016 Ot 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, 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 04/04/2016 Ot 250.00 DIAB ALONDRA WO COMPL, TYPE II OR UNSPEC TY 04/04/2016 Ot V58.67 LONG-TERM (CURRENT) USE OF INSULIN 04/04/2016 Ot V58.69 OTH MED,LT,CURRENT USE 04/04/2016 Ot 272.4 HYPERLIPIDEMIA NEC/NOS 04/04/2016 RUBINALDELLA NUISANCE WILDLIFE 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 Ot R22.31 LOCALIZED SWELLING, MASS AND LUMP, RIGHT 04/04/2016 MAUDE NG NUISANCE WILDLIFE 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 Ot 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 LYMPHOCYTIC LEUK OF B-CELL TYPE 04/04/2016 MAUDE NG NUISANCE WILDLIFE 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 Ot E11.9 TYPE 2 DIABETES MELLITUS WITHOUT COMPLIC 04/04/2016 MAUDE NG NUISANCE WILDLIFE 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 Ot I10 ESSENTIAL (PRIMARY) HYPERTENSION 04/04/2016 MAUDE NG NUISANCE WILDLIFE 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 Ot Z79.4 HALFWAY (CURRENT) USE OF INSULIN 04/04/2016 MAUDE NG NUISANCE WILDLIFE 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 Ot Z79.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 04/04/2016 MAUDE NG NUISANCE WILDLIFE 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 Ot 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 LYMPHOCYTIC LEUK OF B-CELL TYPE 04/04/2016 MAUDE NG NUISANCE WILDLIFE 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 Ot E11.9 TYPE 2 DIABETES MELLITUS WITHOUT COMPLIC 04/04/2016 MAUDE NG NUISANCE WILDLIFE 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 Ot I10 ESSENTIAL (PRIMARY) HYPERTENSION 04/04/2016 MAUDE NG NUISANCE WILDLIFE 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 Ot Z79.4 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 REPAIRER (CURRENT) USE OF INSULIN 04/04/2016 MAUDE NG NUISANCE WILDLIFE 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 Ot Z79.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 04/04/2016 VIRY MORAN Ot 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 LYMPHOCYTIC LEUK OF B-CELL TYPE 04/04/2016 SASHAVIRY N Ot E11.9 TYPE 2 DIABETES MELLITUS WITHOUT COMPLIC 04/04/2016 SASHAVIRY N Ot I10 ESSENTIAL (PRIMARY) HYPERTENSION 04/04/2016 SASHAVIRY N Ot Z79.4 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 REPAIRER (CURRENT) USE OF INSULIN 04/04/2016 SASHA VIRY N Ot Z79.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 04/06/2016 SASHAVIRY Ot 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 LYMPHOCYTIC LEUK OF B-CELL TYPE 04/06/2016 SASHAVIRY N Ot E11.9 TYPE 2 DIABETES MELLITUS WITHOUT COMPLIC 04/06/2016 SASHAVIRY N Ot I10 ESSENTIAL (PRIMARY) HYPERTENSION 04/06/2016 VIRY MORAN Ot Z79.4 HALFWAY (CURRENT) USE OF INSULIN 04/06/2016 VIRY MORAN N Ot Z79.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 06/22/2016 MAUDE NG NUISANCE WILDLIFE 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 Ot R92.8 OTH ABN AND INCONCLUSIVE FINDINGS ON DX 07/12/2016 MAUDE NG NUISANCE WILDLIFE 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 Ot R92.8 OTH ABN AND INCONCLUSIVE FINDINGS ON DX 08/29/2016 VIRY MORNA Ot 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 LYMPHOCYTIC LEUK OF B-CELL TYPE 08/29/2016 VIRY MORAN N Ot E11.9 TYPE 2 DIABETES MELLITUS WITHOUT COMPLIC 08/29/2016 VIRY MORAN N Ot I10 ESSENTIAL (PRIMARY) HYPERTENSION 08/29/2016 VIRY MORAN N Ot Z79.4 HALFWAY (CURRENT) USE OF INSULIN 08/29/2016 VIRY MORAN Ot Z79.899 OTHER HALFWAY (CURRENT) DRUG THERAPY 10/17/2016 VIRY MORAN Ot 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 LYMPHOCYTIC LEUK OF B-CELL TYPE 10/17/2016 VIRY MORAN N Ot E11.9 TYPE 2 DIABETES MELLITUS WITHOUT COMPLIC 10/17/2016 VIRY MORAN N Ot I10 ESSENTIAL (PRIMARY) HYPERTENSION 10/17/2016 VIRY MORAN N Ot Z79.4 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 REPAIRER (CURRENT) USE OF INSULIN 10/17/2016 VIRY MORAN N Ot Z79.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 11/20/2016 ALMA SAHU, EDWIN T Ot E11.9 TYPE 2 DIABETES MELLITUS WITHOUT COMPLIC 11/20/2016 EDWIN MARQUEZ MD T Ot I10 ESSENTIAL (PRIMARY) HYPERTENSION 11/20/2016 EDWIN MARQUEZ MD T Ot J20.9 ACUTE BRONCHITIS, UNSPECIFIED 11/20/2016 EDWIN MARQUEZ MD T Ot J30.9 ALLERGIC RHINITIS, UNSPECIFIED 11/20/2016 EDWIN MARQUEZ MD T Ot R05 COUGH 11/20/2016 EDWIN MARQUEZ MD T Ot R07.89 OTHER CHEST PAIN 11/20/2016 EDWIN MARQUEZ MD T Ot Z79.02 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 REPAIRER (CURRENT) USE OF ANTITHROMBOTI 11/20/2016 EDWIN MARQUEZ MD T Ot Z79.4 HALFWAY (CURRENT) USE OF INSULIN 11/20/2016 EDWIN MARQUEZ MD T Ot Z79.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 11/21/2016 EDWIN MARQUEZ MD T Ot E11.9 TYPE 2 DIABETES MELLITUS WITHOUT COMPLIC 11/21/2016 EDWIN MARQUEZ MD T Ot I10 ESSENTIAL (PRIMARY) HYPERTENSION 11/21/2016 EDWIN MARQUEZ MD T Ot J20.9 ACUTE BRONCHITIS, UNSPECIFIED 11/21/2016 EDWIN MARQUEZ MD T Ot J30.9 ALLERGIC RHINITIS, UNSPECIFIED 11/21/2016 EDWIN MARQUEZ MD T Ot R05 COUGH 11/21/2016 EDWIN MARQUEZ MD T Ot R07.89 OTHER CHEST PAIN 11/21/2016 EDWIN MARQUEZ MD T Ot Z79.02 HALFWAY (CURRENT) USE OF ANTITHROMBOTI 11/21/2016 EDWIN MARQUEZ MD T Ot Z79.4 HALFWAY (CURRENT) USE OF INSULIN 11/21/2016 EDWIN MARQUEZ MD T Ot Z79.899 OTHER HALFWAY (CURRENT) DRUG THERAPY 11/22/2016 EDWIN MARQUEZ MD T Ot E11.9 TYPE 2 DIABETES MELLITUS WITHOUT COMPLIC 11/22/2016 EDWIN MARQUEZ MD T Ot I10 ESSENTIAL (PRIMARY) HYPERTENSION 11/22/2016 EDWIN MARQUEZ MD T Ot J20.9 ACUTE BRONCHITIS, UNSPECIFIED 11/22/2016 EDWIN MARQUEZ MD Ot J30.9 ALLERGIC RHINITIS, UNSPECIFIED 11/22/2016 EDWIN MARQUEZ MD Ot R05 COUGH 11/22/2016 EDWIN MARQUEZ MD Ot R07.89 OTHER CHEST PAIN 11/22/2016 EDWIN MARQUEZ MD Ot Z79.02 HALFWAY (CURRENT) USE OF ANTITHROMBOTI 11/22/2016 EDWIN MARQUEZ MD Ot Z79.4 HALFWAY (CURRENT) USE OF INSULIN 11/22/2016 EDWIN MARQUEZ MD Ot Z79.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 12/22/2016 VIRY MORAN Ot 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 LYMPHOCYTIC LEUK OF B-CELL TYPE 12/22/2016 VIRY MORAN Ot E11.9 TYPE 2 DIABETES MELLITUS WITHOUT COMPLIC 12/22/2016 VIRY MORAN Ot I10 ESSENTIAL (PRIMARY) HYPERTENSION 12/22/2016 VIRY MORAN Ot Z79.4 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 REPAIRER (CURRENT) USE OF INSULIN 12/22/2016 VIRY MORAN Ot Z79.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 12/24/2016 MAUDE NG Ot 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 LYMPHOCYTIC LEUK OF B-CELL TYPE 12/24/2016 MAUDE NG NUISANCE WILDLIFE 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 Ot E11.9 TYPE 2 DIABETES MELLITUS WITHOUT COMPLIC 12/24/2016 MAUDE NGP Ot I10 ESSENTIAL (PRIMARY) HYPERTENSION 12/24/2016 MAUDE NGP Ot Z79.4 HALFWAY (CURRENT) USE OF INSULIN 12/24/2016 MAUDE NGP Ot Z79.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 12/24/2016 MAUDE NGP Ot C91.10 CHRONIC LYMPHOCYTIC LEUK OF B-CELL TYPE 12/24/2016 MAUDE NG NUISANCE WILDLIFE 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 Ot E11.9 TYPE 2 DIABETES MELLITUS WITHOUT COMPLIC 12/24/2016 MAUDE NG NUISANCE WILDLIFE 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 Ot I10 ESSENTIAL (PRIMARY) HYPERTENSION 12/24/2016 MAUDE NG NUISANCE WILDLIFE 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 Ot Z79.4 HALFWAY (CURRENT) USE OF INSULIN 12/24/2016 MAUDE NG NUISANCE WILDLIFE 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 Ot Z79.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 12/24/2016 MAUDE NG NUISANCE WILDLIFE 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 Ot C91.10 CHRONIC LYMPHOCYTIC LEUK OF B-CELL TYPE 12/24/2016 MAUDE NG NUISANCE WILDLIFE 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 Ot E11.9 TYPE 2 DIABETES MELLITUS WITHOUT COMPLIC 12/24/2016 MAUDE NG NUISANCE WILDLIFE 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 Ot I10 ESSENTIAL (PRIMARY) HYPERTENSION 12/24/2016 MAUDE NG NUISANCE WILDLIFE 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 Ot Z79.4 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 REPAIRER (CURRENT) USE OF INSULIN 12/24/2016 MAUDE NG NUISANCE WILDLIFE 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 Ot Z79.899 OTHER HALFWAY (CURRENT) DRUG THERAPY 12/24/2016 VIRY MORAN N Ot C91.10 CHRONIC LYMPHOCYTIC LEUK OF B-CELL TYPE 12/24/2016 VIRY MORAN N Ot E11.9 TYPE 2 DIABETES MELLITUS WITHOUT COMPLIC 12/24/2016 SASHA, VIRY N Ot I10 ESSENTIAL (PRIMARY) HYPERTENSION 12/24/2016 SASHAVIRY ROLWAND N Ot Z79.4 HALFWAY (CURRENT) USE OF INSULIN 12/24/2016 VIRY MORAN N Ot Z79.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 12/24/2016 VIRY MORAN N Ot C91.10 CHRONIC LYMPHOCYTIC LEUK OF B-CELL TYPE 12/24/2016 SASHA DUSTYWILEY N Ot E11.9 TYPE 2 DIABETES MELLITUS WITHOUT COMPLIC 12/24/2016 SASHA, VIRY N Ot I10 ESSENTIAL (PRIMARY) HYPERTENSION 12/24/2016 SASHA, DUSTYWILEY N Ot Z79.4 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 REPAIRER (CURRENT) USE OF INSULIN 12/24/2016 SASHA DUSTYWILEY N Ot Z79.899 OTHER HALFWAY (CURRENT) DRUG THERAPY 01/11/2017 EDWIN MARQUEZ MD T Ot E11.9 TYPE 2 DIABETES MELLITUS WITHOUT COMPLIC 01/11/2017 EDWIN MARQUEZ MD T Ot I10 ESSENTIAL (PRIMARY) HYPERTENSION 01/11/2017 EDWIN MARQUEZ MD Ot J20.9 ACUTE BRONCHITIS, UNSPECIFIED 01/11/2017 EDWIN MARQUEZ MD Ot J30.9 ALLERGIC RHINITIS, UNSPECIFIED 01/11/2017 EDWIN MARQUEZ MD Ot R05 COUGH 01/11/2017 ALMA SAHU, EDWIN Carvajal Ot R07.89 OTHER CHEST PAIN 01/11/2017 ALMA SAHU, EDWIN Carvajal Ot Z79.02 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 REPAIRER (CURRENT) USE OF ANTITHROMBOTI 01/11/2017 ALMA SAHU, EDWIN Carvajal Ot Z79.4 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 REPAIRER (CURRENT) USE OF INSULIN 01/11/2017 ALMA SAHU, EDWIN Carvajal Ot Z79.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 01/25/2017 VIRY MORAN Ot C91.10 CHRONIC LYMPHOCYTIC LEUK OF B-CELL TYPE 01/25/2017 VIRY MORAN N Ot E11.9 TYPE 2 DIABETES MELLITUS WITHOUT COMPLIC 01/25/2017 VIRY MORAN Ot I10 ESSENTIAL (PRIMARY) HYPERTENSION 01/25/2017 VIRY MORAN Ot Z79.4 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 REPAIRER (CURRENT) USE OF INSULIN 01/25/2017 VIRY MORAN Ot Z79.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 03/01/2017 ANTONINO WALLER STORE TEAM MEMBER Ot N64.52 NIPPLE DISCHARGE 03/06/2017 ANTONINO WALLER R STORE TEAM MEMBER Ot N64.52 NIPPLE DISCHARGE 03/20/2017 VIRY MORAN Ot C91.10 CHRONIC LYMPHOCYTIC LEUK OF B-CELL TYPE 03/20/2017 VIRY MORAN N Ot E11.9 TYPE 2 DIABETES MELLITUS WITHOUT COMPLIC 03/20/2017 VIRY MORAN N Ot I10 ESSENTIAL (PRIMARY) HYPERTENSION 03/20/2017 VIRY MORAN Ot Z79.4 HALFWAY (CURRENT) USE OF INSULIN 03/20/2017 VIRY MORAN N Ot Z79.899 OTHER HALFWAY (CURRENT) DRUG THERAPY 03/30/2017 ANTONINO WALLER R STORE TEAM MEMBER Ot N64.52 NIPPLE DISCHARGE 07/31/2017 VIRY MORAN Ot C91.10 CHRONIC LYMPHOCYTIC LEUK OF B-CELL TYPE 07/31/2017 VIRY MORAN N Ot E11.9 TYPE 2 DIABETES MELLITUS WITHOUT COMPLIC 07/31/2017 VIRY MORAN N Ot I10 ESSENTIAL (PRIMARY) HYPERTENSION 07/31/2017 VIRY MORAN Ot Z79.4 HALFWAY (CURRENT) USE OF INSULIN 07/31/2017 VIRY MORAN Ot Z79.899 OTHER HALFWAY (CURRENT) DRUG THERAPY 08/09/2017 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 APRN [...] UNSPECIFIED 08/09/2017 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 APRN Ot Z79.4 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 REPAIRER (CURRENT) USE OF INSULIN 08/09/2017 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 APRN Ot Z79.82 HALFWAY (CURRENT) USE OF ASPIRIN 08/09/2017 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 [...] UNSPECIFIED 08/13/2017 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 APRN Ot Z79.4 HALFWAY (CURRENT) USE OF INSULIN 08/13/2017 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 APRN Ot Z79.82 HALFWAY (CURRENT) USE OF ASPIRIN 08/13/2017 GOMEZ, PETER J STORE TEAM MEMBER Ot Z85.6 PERSONAL HISTORY OF LEUKEMIA 08/13/2017 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 APRN Ot Z86.73 PRSNL HX OF TIA (TIA), AND CEREB INFRC W 08/13/2017 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 APRN Ot Z98.51 TUBAL LIGATION STATUS 08/23/2017 RUBY FOX MD, Ot E11.9 TYPE 2 DIABETES MELLITUS WITHOUT COMPLIC 08/23/2017 RUBY FOX MD, Ot E78.00 PURE HYPERCHOLESTEROLEMIA, UNSPECIFIED 08/23/2017 RUBY FOX MD, Ot I10 ESSENTIAL (PRIMARY) HYPERTENSION 08/23/2017 RUBY FOX MD, Ot K21.9 GASTRO-ESOPHAGEAL REFLUX DISEASE WITHOUT 08/23/2017 RUBY FOX MD, Ot M25.562 PAIN IN LEFT KNEE 08/23/2017 RUBY FOX MD, Ot M54.5 LOW BACK PAIN 08/23/2017 RUBY FOX MD Ot S70.02XA CONTUSION OF LEFT HIP, INITIAL ENCOUNTER 08/23/2017 RUBY FOX MD, Ot S86.912A STRAIN OF UNSP MUSC/TEND AT LOWER LEG LE 08/23/2017 RUBY FOX MD, Ot Z79.4 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 REPAIRER (CURRENT) USE OF INSULIN 08/23/2017 RUBY FOX MD, Ot Z79.82 HALFWAY (CURRENT) USE OF ASPIRIN 08/23/2017 RUBY FOX [...] LE 08/27/2017 RUBY FOX MD, Ot Z79.4 HALFWAY (CURRENT) USE OF INSULIN 08/27/2017 RUBY FOX MD, Ot Z79.82 HALFWAY (CURRENT) USE OF ASPIRIN 08/27/2017 RUBY FOX [...] (PRIMARY) HYPERTENSION 09/25/2017 VIRY MORAN Ot Z79.4 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 REPAIRER (CURRENT) USE OF INSULIN 09/25/2017 VIRY MORAN Ot Z79.899 OTHER HALFWAY (CURRENT) DRUG THERAPY 10/02/2017 VIRY MORAN Ot C91.10 CHRONIC LYMPHOCYTIC LEUK OF B-CELL TYPE 10/02/2017 VIRY MORAN N Ot E11.9 TYPE 2 DIABETES MELLITUS WITHOUT COMPLIC 10/02/2017 VIRY MORAN N Ot I10 ESSENTIAL (PRIMARY) HYPERTENSION 10/02/2017 VIRY MORAN N Ot Z79.4 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 REPAIRER (CURRENT) USE OF INSULIN 10/02/2017 VIRY MORAN N Ot Z79.899 OTHER HALFWAY (CURRENT) DRUG THERAPY 10/03/2017 VIRY MORAN Ot C91.10 CHRONIC LYMPHOCYTIC LEUK OF B-CELL TYPE 10/03/2017 VIRY MORAN N Ot E11.9 TYPE 2 DIABETES MELLITUS WITHOUT COMPLIC 10/03/2017 VIRY MORAN N Ot I10 ESSENTIAL (PRIMARY) HYPERTENSION 10/03/2017 VIRY MORAN Ot Z79.4 HALFWAY (CURRENT) USE OF INSULIN 10/03/2017 VIRY MORAN Ot Z79.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 03/04/2018 VIRY MORAN Ot 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, 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 03/04/2018 NGMAUDE Vernon S NUISANCE WILDLIFE 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 Ot 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, 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 03/04/2018 MAUDE NG S NUISANCE WILDLIFE 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 Ot 250.00 DIAB ALONDRA WO COMPL, TYPE II OR UNSPEC TY 03/04/2018 RAFI NGAH S NUISANCE WILDLIFE 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 Ot 438.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,HEMIPLEGIA AFFECTING 03/04/2018 RAFI NGAH S NUISANCE WILDLIFE 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 Ot 780.79 OTH MALAISE FATIGUE 03/04/2018 RAFI NGAH S NUISANCE WILDLIFE 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 Ot V58.67 LONG-TERM (CURRENT) USE OF INSULIN 03/04/2018 MAUDE NG S NUISANCE WILDLIFE 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 Ot V58.69 OTH MED,LT,CURRENT USE 03/04/2018 MAUDE NG S NUISANCE WILDLIFE 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 Ot 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, 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 03/04/2018 MAUDE NG S NUISANCE WILDLIFE 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 Ot V58.69 OTH MED,LT,CURRENT USE 03/04/2018 VIRY MORAN Ot 729.5 PAIN IN LIMB 03/04/2018 MAUDE NG S NUISANCE WILDLIFE 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 Ot 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, 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 03/04/2018 MAUDE NG S NUISANCE WILDLIFE 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 Ot 250.00 DIAB ALONDRA WO COMPL, TYPE II OR UNSPEC TY 03/04/2018 MAUDE NG S NUISANCE WILDLIFE 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 Ot V58.67 LONG-TERM (CURRENT) USE OF INSULIN 03/04/2018 MAUDE NG S NUISANCE WILDLIFE 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 Ot V58.69 OTH MED,LT,CURRENT USE 03/04/2018 MAUDE NG S NUISANCE WILDLIFE 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 Ot V76.12 OTH SCREEN MAMMO-MALIGN NEOPLASM OF SILVINA 03/04/2018 RAFI NGAH S NUISANCE WILDLIFE 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 Ot 793.80 UNSPEC ABNORMAL MAMMOGRAM 03/04/2018 Ot 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, 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 03/04/2018 Ot 250.00 DIAB ALONDRA WO COMPL, TYPE II OR UNSPEC TY 03/04/2018 Ot V58.67 LONG-TERM (CURRENT) USE OF INSULIN 03/04/2018 Ot V58.69 OTH MED,LT,CURRENT USE 03/04/2018 Ot 272.4 HYPERLIPIDEMIA NEC/NOS 03/04/2018 DELLA MCGEE NUISANCE WILDLIFE 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 Ot R22.31 LOCALIZED SWELLING, MASS AND LUMP, RIGHT 03/04/2018 MAUDE NG NUISANCE WILDLIFE 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 Ot C91.10 CHRONIC LYMPHOCYTIC LEUK OF B-CELL TYPE 03/04/2018 MAUDE NG NUISANCE WILDLIFE 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 Ot E11.9 TYPE 2 DIABETES MELLITUS WITHOUT COMPLIC 03/04/2018 MAUDE NG NUISANCE WILDLIFE 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 Ot I10 ESSENTIAL (PRIMARY) HYPERTENSION 03/04/2018 MAUDE NG NUISANCE WILDLIFE 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 Ot Z79.4 HALFWAY (CURRENT) USE OF INSULIN 03/04/2018 MAUDE NG NUISANCE WILDLIFE 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 Ot Z79.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 03/04/2018 MAUDE NG NUISANCE WILDLIFE 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 Ot C91.10 CHRONIC LYMPHOCYTIC LEUK OF B-CELL TYPE 03/04/2018 MAUDE NG NUISANCE WILDLIFE 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 Ot E11.9 TYPE 2 DIABETES MELLITUS WITHOUT COMPLIC 03/04/2018 MAUDE NG NUISANCE WILDLIFE 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 Ot I10 ESSENTIAL (PRIMARY) HYPERTENSION 03/04/2018 MAUDE NG NUISANCE WILDLIFE 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 Ot Z79.4 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 REPAIRER (CURRENT) USE OF INSULIN 03/04/2018 MAUDE NG NUISANCE WILDLIFE 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 Ot Z79.899 OTHER HALFWAY (CURRENT) DRUG THERAPY 03/04/2018 MAUDE NG NUISANCE WILDLIFE 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 Ot R92.8 OTH ABN AND INCONCLUSIVE FINDINGS ON DX 03/04/2018 VIRY MORAN Ot C91.10 CHRONIC LYMPHOCYTIC LEUK OF B-CELL TYPE 03/04/2018 VIRY MORAN Ot E11.9 TYPE 2 DIABETES MELLITUS WITHOUT COMPLIC 03/04/2018 VIRY MORAN Ot I10 ESSENTIAL (PRIMARY) HYPERTENSION 03/04/2018 VIRY MORAN Ot Z79.4 HALFWAY (CURRENT) USE OF INSULIN 03/04/2018 VIRY MORAN Ot Z79.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 03/04/2018 ANTONINO WALLER APRN Ot N64.52 NIPPLE DISCHARGE 03/04/2018 VIRY MORAN Ot C91.10 CHRONIC LYMPHOCYTIC LEUK OF B-CELL TYPE 03/04/2018 VIRY MORAN Ot E11.9 TYPE 2 DIABETES MELLITUS WITHOUT COMPLIC 03/04/2018 VIRY MORAN Ot I10 ESSENTIAL (PRIMARY) HYPERTENSION 03/04/2018 VIRY MORAN Ot Z79.4 HALFWAY (CURRENT) USE OF INSULIN 03/04/2018 VIRY MORAN Ot Z79.899 OTHER HALFWAY (CURRENT) DRUG THERAPY 03/04/2018 RAFI NGLEXIE S NUISANCE WILDLIFE 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 Ot Z12.31 ENCNTR SCREEN MAMMOGRAM FOR MALIGNANT NE 03/05/2018 RAFI NGLEXIE S NUISANCE WILDLIFE 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 Ot C91.10 CHRONIC LYMPHOCYTIC LEUK OF B-CELL TYPE 03/05/2018 RAFI NGLEXIE S NUISANCE WILDLIFE 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 Ot R22.31 LOCALIZED SWELLING, MASS AND LUMP, RIGHT 03/05/2018 RAFI NGLEXIE Vernon NUISANCE WILDLIFE 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 Ot R92.8 OTH ABN AND INCONCLUSIVE FINDINGS ON DX 03/26/2018 MAUDE NG S NUISANCE WILDLIFE 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 Ot C91.10 CHRONIC LYMPHOCYTIC LEUK OF B-CELL TYPE 03/26/2018 MAUDE NG S NUISANCE WILDLIFE 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 Ot R22.31 LOCALIZED SWELLING, MASS AND LUMP, RIGHT 03/26/2018 RAFI NGLEXIE Vernon NUISANCE WILDLIFE 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 Ot R92.8 OTH ABN AND INCONCLUSIVE FINDINGS [...] MASS AND LUMP, RIGHT 03/29/2018 CHITO HERNANDEZ MD Ot Z79.02 HALFWAY (CURRENT) USE OF ANTITHROMBOTI 03/29/2018 CHITO HERNANDEZ MD, Ot Z79.4 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 REPAIRER (CURRENT) USE OF INSULIN 03/29/2018 CHITO HERNANDEZ MD Ot Z79.82 HALFWAY (CURRENT) USE OF ASPIRIN 04/04/2018 CHITO HERNANDEZ MD Ot C50.411 MALIG NEOPLM OF UPPER-OUTER QUADRANT OF 04/04/2018 CHITO HERNANDEZ MD Ot C91.10 CHRONIC LYMPHOCYTIC LEUK OF B-CELL TYPE 04/04/2018 CHITO HERNANDEZ MD Ot E11.9 TYPE 2 DIABETES MELLITUS WITHOUT COMPLIC 04/04/2018 CHITO HERNANDEZ MD Ot I10 ESSENTIAL (PRIMARY) HYPERTENSION 04/04/2018 CHITO HERNANDEZ MD, Ot I69.354 HEMIPLGA FOLLOWING CEREBRAL INFRC AFFECT 04/04/2018 CHITO HERNANDEZ MD, Ot Z79.02 HALFWAY (CURRENT) USE OF ANTITHROMBOTI 04/04/2018 CHITO HERNANDEZ MD, Ot Z79.4 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 REPAIRER (CURRENT) USE OF INSULIN 04/04/2018 CHITO HERNANDEZ MD, Ot 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.82 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 (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) USE OF ASPIRIN 04/07/2018 CHITO HERNANDEZ MD, Ot C50.411 MALIG NEOPLM OF UPPER-OUTER QUADRANT OF 04/07/2018 CHITO HERNANDEZ MD, Ot C91.10 CHRONIC LYMPHOCYTIC LEUK OF B-CELL TYPE 04/07/2018 CHITO HERNANDEZ MD, Ot E11.9 TYPE 2 DIABETES MELLITUS WITHOUT COMPLIC 04/07/2018 CHITO HERNANDEZ MD Ot I10 ESSENTIAL (PRIMARY) HYPERTENSION 04/07/2018 CHITO HERNANDEZ MD Ot I69.354 HEMIPLGA FOLLOWING CEREBRAL INFRC AFFECT 04/07/2018 CHITO HERNANDEZ MD, Ot Z79.02 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 REPAIRER (CURRENT) USE OF ANTITHROMBOTI 04/07/2018 CHITO HERNANDEZ MD, Ot Z79.4 HALFWAY (CURRENT) USE OF INSULIN 04/07/2018 CHITO HERNANDEZ MD, Ot Z79.82 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 REPAIRER (CURRENT) USE OF ASPIRIN 04/08/2018 CHITO HERNANDEZ MD, Ot 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 04/08/2018 CHITO HERNANDEZ MD, Ot 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 04/08/2018 CHITO HERNANDEZ MD, Ot Z53.09 PROC/TRTMT NOT CARRIED OUT BECAUSE OF CO 04/09/2018 BERNKEIRA SALASIS Ot E11.9 TYPE 2 DIABETES MELLITUS WITHOUT COMPLIC 04/09/2018 BERNOT, MONTSERRAT Ot E78.00 PURE HYPERCHOLESTEROLEMIA, UNSPECIFIED 04/09/2018 BERNOT, MONTSERRAT Ot I10 ESSENTIAL (PRIMARY) HYPERTENSION 04/09/2018 KEIRA LÓPEZIS Ot K21.9 GASTRO- ESOPHAGEAL REFLUX DISEASE WITHOUT 04/09/2018 BERNOT, MONTSERRAT Ot T81.89XA OTH COMPLICATIONS OF PROCEDURES, NEC, IN 04/09/2018 KEIRA LÓPEZIS Ot Z79.4 HALFWAY (CURRENT) USE OF INSULIN 04/09/2018 KEIRA LÓPEZIS Ot 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.82 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 (CURRENT) USE OF 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 04/09/2018 KEIRA LÓPEZIS Ot Z85.6 PERSONAL HISTORY OF LEUKEMIA 04/09/2018 BRITTANIEOT MONTSERRAT Ot Z86.73 PRSNL HX OF TIA (TIA), AND CEREB INFRC W 04/09/2018 KEIRA LÓPEZIS Ot Z87.448 PERSONAL HISTORY OF OTHER DISEASES OF UR 04/09/2018 KEIRA LÓPEZIS Ot Z98.51 TUBAL LIGATION STATUS 04/09/2018 RENE MONTSERRAT Ot Z98.890 OTHER SPECIFIED POSTPROCEDURAL STATES 04/11/2018 BRITTANIEKEIRA SALASIS Ot E11.9 TYPE 2 DIABETES MELLITUS WITHOUT COMPLIC 04/11/2018 BRITTANIEOT, MONTSERRAT Ot E78.00 PURE HYPERCHOLESTEROLEMIA, UNSPECIFIED 04/11/2018 BERNOT, MONTSERRAT Ot I10 ESSENTIAL (PRIMARY) HYPERTENSION 04/11/2018 RENEKEIRAIS Ot K21.9 GASTRO- ESOPHAGEAL REFLUX DISEASE WITHOUT 04/11/2018 BRITTANIEOT, MONTSERRAT Ot T81.89XA OTH COMPLICATIONS OF PROCEDURES, NEC, IN 04/11/2018 KEIRA LÓPEZIS Ot Z79.4 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 REPAIRER (CURRENT) USE OF INSULIN 04/11/2018 RENE MONTSERRAT Ot Z79.82 HALFWAY (CURRENT) USE OF ASPIRIN 04/11/2018 KEIRA LÓPEZIS Ot Z85.6 PERSONAL HISTORY OF LEUKEMIA 04/11/2018 KEIRA LÓPEZIS Ot Z86.73 PRSNL HX OF TIA (TIA), AND CEREB INFRC W 04/11/2018 KEIRA LÓPEZIS Ot Z87.448 PERSONAL HISTORY OF OTHER DISEASES OF UR 04/11/2018 KEIRA LÓPEZIS Ot Z98.51 TUBAL LIGATION STATUS 04/11/2018 MONTSERRAT LÓPEZ Ot Z98.890 OTHER SPECIFIED POSTPROCEDURAL STATES 04/22/2018 MARY SAHU, CHITO Rawls Ot C79.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 MALIGNANT NEOPLASM OF OTHER SP 04/30/2018 VIRY MORAN Ot C91.10 CHRONIC LYMPHOCYTIC LEUK OF B-CELL TYPE 04/30/2018 SASHAVIRY ROWLAND N Ot E11.9 TYPE 2 DIABETES MELLITUS WITHOUT COMPLIC 04/30/2018 VIRY MORAN N Ot I10 ESSENTIAL (PRIMARY) HYPERTENSION 04/30/2018 SASHAVIRY ROWLAND N Ot Z79.4 HALFWAY (CURRENT) USE OF INSULIN 04/30/2018 VIRY MORAN N Ot Z79.899 OTHER HALFWAY (CURRENT) DRUG THERAPY 05/07/2018 VIRY MORAN N Ot C91.10 CHRONIC LYMPHOCYTIC LEUK OF B-CELL TYPE 05/07/2018 SASHAVIRY ROWLAND N Ot E11.9 TYPE 2 DIABETES MELLITUS WITHOUT COMPLIC 05/07/2018 VIRY MORAN N Ot I10 ESSENTIAL (PRIMARY) HYPERTENSION 05/07/2018 VIRY MORAN N Ot Z79.4 HALFWAY (CURRENT) USE OF INSULIN 05/07/2018 VIRY MORAN N Ot Z79.899 OTHER HALFWAY (CURRENT) DRUG THERAPY 05/07/2018 MARY SAHU, CHITO Rawls Ot R92.8 OTH ABN AND INCONCLUSIVE FINDINGS ON DX 05/07/2018 CHITO HERNANDEZ MD Ot N63.10 UNSPECIFIED LUMP IN THE RIGHT BREAST, UN 05/07/2018 CHITO HERNANDEZ MD Ot R92.8 OTH ABN AND INCONCLUSIVE FINDINGS ON DX 05/08/2018 CHITO HERNANDEZ MD, Ot C79.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 MALIGNANT NEOPLASM OF OTHER SP 05/16/2018 CHITO HERNANDEZ MD Ot K80.20 CALCULUS OF GALLBLADDER W/O CHOLECYSTITI 05/21/2018 CHITO HERNANDEZ MD Ot K80.20 CALCULUS OF GALLBLADDER W/O CHOLECYSTITI 05/22/2018 CHITO HERNANDEZ MD Ot R92.8 OTH ABN AND INCONCLUSIVE FINDINGS ON DX 05/22/2018 CHITO HERNANDEZ MD, Ot C50.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 05/27/2018 CHITO HERNANDEZ MD Ot Z01.818 ENCOUNTER FOR OTHER PREPROCEDURAL EXAMIN 05/28/2018 MARY SAHU, CHITO Rawls Ot Z01.818 ENCOUNTER FOR OTHER PREPROCEDURAL EXAMIN 05/28/2018 VIRY MORAN Ot 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, 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 05/28/2018 NGMAUDE Vernon S NUISANCE WILDLIFE 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 Ot 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, 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 05/28/2018 NG, HILAH S NUISANCE WILDLIFE 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 Ot 250.00 DIAB ALONDRA WO COMPL, TYPE II OR UNSPEC TY 05/28/2018 NG HILAH S NUISANCE WILDLIFE 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 Ot 438.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,HEMIPLEGIA AFFECTING 05/28/2018 NG, HILAH S NUISANCE WILDLIFE 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 Ot 780.79 OTH MALAISE FATIGUE 05/28/2018 NG, HILAH S NUISANCE WILDLIFE 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 Ot V58.67 LONG-TERM (CURRENT) USE OF INSULIN 05/28/2018 NG HILAH S NUISANCE WILDLIFE 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 Ot V58.69 OTH MED,LT,CURRENT USE 05/28/2018 NG, HILAH S NUISANCE WILDLIFE 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 Ot 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, 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 05/28/2018 NG HILAH S NUISANCE WILDLIFE 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 Ot V58.69 OTH MED,LT,CURRENT USE 05/28/2018 VIRY MORAN Ot 729.5 PAIN IN LIMB 05/28/2018 NG, HILAH S NUISANCE WILDLIFE 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 Ot 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, 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 05/28/2018 NG, HILAH S NUISANCE WILDLIFE 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 Ot 250.00 DIAB ALONDRA WO COMPL, TYPE II OR UNSPEC TY 05/28/2018 NG HILAH S NUISANCE WILDLIFE 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 Ot V58.67 LONG-TERM (CURRENT) USE OF INSULIN 05/28/2018 NG HILAH S NUISANCE WILDLIFE 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 Ot V58.69 OTH MED,LT,CURRENT USE 05/28/2018 NG HILAH S NUISANCE WILDLIFE 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 Ot V76.12 OTH SCREEN MAMMO-MALIGN NEOPLASM OF [place]ILVINA 05/28/2018 NG HILAH S NUISANCE WILDLIFE 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 Ot 793.80 UNSPEC ABNORMAL MAMMOGRAM 05/28/2018 Ot 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, 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 05/28/2018 Ot 250.00 DIAB ALONDRA WO COMPL, TYPE II OR UNSPEC TY 05/28/2018 Ot V58.67 LONG-TERM (CURRENT) USE OF INSULIN 05/28/2018 Ot V58.69 OTH MED,LT,CURRENT USE 05/28/2018 Ot 272.4 HYPERLIPIDEMIA NEC/NOS 05/28/2018 DELLA MCGEE NUISANCE WILDLIFE 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 Ot R22.31 LOCALIZED SWELLING, MASS AND LUMP, RIGHT 05/28/2018 MAUDE NG NUISANCE WILDLIFE 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 Ot C91.10 CHRONIC LYMPHOCYTIC LEUK OF B-CELL TYPE 05/28/2018 MAUDE NG NUISANCE WILDLIFE 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 Ot E11.9 TYPE 2 DIABETES MELLITUS WITHOUT COMPLIC 05/28/2018 MAUDE NG NUISANCE WILDLIFE 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 Ot I10 ESSENTIAL (PRIMARY) HYPERTENSION 05/28/2018 MAUDE NGP Ot Z79.4 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 REPAIRER (CURRENT) USE OF INSULIN 05/28/2018 MAUDE NGP Ot Z79.899 OTHER HALFWAY (CURRENT) DRUG THERAPY 05/28/2018 MAUDE NG NUISANCE WILDLIFE 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 Ot C91.10 CHRONIC LYMPHOCYTIC LEUK OF B-CELL TYPE 05/28/2018 MAUDE NGP Ot E11.9 TYPE 2 DIABETES MELLITUS WITHOUT COMPLIC 05/28/2018 MAUDE NGP Ot I10 ESSENTIAL (PRIMARY) HYPERTENSION 05/28/2018 MAUDE NGP Ot Z79.4 HALFWAY (CURRENT) USE OF INSULIN 05/28/2018 MAUDE NGP Ot Z79.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 05/28/2018 MAUDE NGP Ot R92.8 OTH ABN AND INCONCLUSIVE FINDINGS ON DX 05/28/2018 VIRY MORAN Ot C91.10 CHRONIC LYMPHOCYTIC LEUK OF B-CELL TYPE 05/28/2018 VIRY MORAN Ot E11.9 TYPE 2 DIABETES MELLITUS WITHOUT COMPLIC 05/28/2018 VIRY MORAN Ot I10 ESSENTIAL (PRIMARY) HYPERTENSION 05/28/2018 VIRY MORAN Ot Z79.4 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 REPAIRER (CURRENT) USE OF INSULIN 05/28/2018 VIRY MORAN Ot Z79.899 OTHER HALFWAY (CURRENT) DRUG THERAPY 05/28/2018 ANTONINO WALLER APRN Ot N64.52 NIPPLE DISCHARGE 05/28/2018 MAUDE NG NUISANCE WILDLIFE 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 Ot C91.10 CHRONIC LYMPHOCYTIC LEUK OF B-CELL TYPE 05/28/2018 MAUDE NG NUISANCE WILDLIFE 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 Ot R22.31 LOCALIZED SWELLING, MASS AND LUMP, RIGHT 05/28/2018 MAUDE NG Ot R92.8 OTH ABN AND INCONCLUSIVE FINDINGS ON DX 05/28/2018 CHITO HERNANDEZ MD, Ot 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 05/28/2018 [...] HYPERTENSION 05/28/2018 VIRY MORAN N Ot Z79.4 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 REPAIRER (CURRENT) USE OF INSULIN 05/28/2018 VIRY MORAN N Ot Z79.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 05/28/2018 CHITO HERNANDEZ MD [...] HYPERTENSION 05/28/2018 VIRY MORAN N Ot Z79.4 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 REPAIRER (CURRENT) USE OF INSULIN 05/28/2018 VIRY MORAN N Ot Z79.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 05/28/2018 CHITO HERNANDEZ MD Ot C50.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 05/28/2018 VIRY MORAN N Ot 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, 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 05/28/2018 NG, HILAH S NUISANCE WILDLIFE 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 Ot 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, 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 05/28/2018 MAUDE NG S NUISANCE WILDLIFE 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 Ot 250.00 DIAB ALONDRA WO COMPL, TYPE II OR UNSPEC TY 05/28/2018 MAUDE NG NUISANCE WILDLIFE 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 Ot 438.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,HEMIPLEGIA AFFECTING 05/28/2018 MAUDE NG S NUISANCE WILDLIFE 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 Ot 780.79 OTH MALAISE FATIGUE 05/28/2018 MAUDE NG S NUISANCE WILDLIFE 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 Ot V58.67 LONG-TERM (CURRENT) USE OF INSULIN 05/28/2018 MAUDE NG NUISANCE WILDLIFE 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 Ot V58.69 OTH MED,LT,CURRENT USE 05/28/2018 MAUDE NG NUISANCE WILDLIFE 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 Ot 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, 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 05/28/2018 MAUDE NGP Ot V58.69 OTH MED,LT,CURRENT USE 05/28/2018 SASHA DUSTYWILEY Black Ot 729.5 PAIN IN LIMB 05/28/2018 MAUDE NG NUISANCE WILDLIFE 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 Ot 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, 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 05/28/2018 MAUDE NG NUISANCE WILDLIFE 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 Ot 250.00 DIAB ALONDRA WO COMPL, TYPE II OR UNSPEC TY 05/28/2018 MAUDE NG S NUISANCE WILDLIFE 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 Ot V58.67 LONG-TERM (CURRENT) USE OF INSULIN 05/28/2018 MAUDE NG NUISANCE WILDLIFE 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 Ot V58.69 OTH MED,LT,CURRENT USE 05/28/2018 MAUDE NGP Ot V76.12 OTH SCREEN MAMMO-MALIGN NEOPLASM OF [place] 05/28/2018 MAUDE NG NUISANCE WILDLIFE 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 Ot 793.80 UNSPEC ABNORMAL MAMMOGRAM 05/28/2018 Ot 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, 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 05/28/2018 Ot 250.00 DIAB ALONDRA WO COMPL, TYPE II OR UNSPEC TY 05/28/2018 Ot V58.67 LONG-TERM (CURRENT) USE OF INSULIN 05/28/2018 Ot V58.69 OTH MED,LT,CURRENT USE 05/28/2018 Ot 272.4 HYPERLIPIDEMIA NEC/NOS 05/28/2018 DELLA MCGEE NUISANCE WILDLIFE 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 Ot R22.31 LOCALIZED SWELLING, MASS AND LUMP, RIGHT 05/28/2018 MAUDE NG S NUISANCE WILDLIFE 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 Ot C91.10 CHRONIC LYMPHOCYTIC LEUK OF B-CELL TYPE 05/28/2018 NG, RAFILEXIE Vernon NUISANCE WILDLIFE 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 Ot E11.9 TYPE 2 DIABETES MELLITUS WITHOUT COMPLIC 05/28/2018 RAFI NGLEXIE Vernon NUISANCE WILDLIFE 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 Ot I10 ESSENTIAL (PRIMARY) HYPERTENSION 05/28/2018 RAFI NGLEXIE Vernon NUISANCE WILDLIFE 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 Ot Z79.4 HALFWAY (CURRENT) USE OF INSULIN 05/28/2018 BERENICE MAUDE Vernon NUISANCE WILDLIFE 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 Ot Z79.899 OTHER HALFWAY (CURRENT) DRUG THERAPY 05/28/2018 BERENICE MAUDE Vernon NUISANCE WILDLIFE 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 Ot C91.10 CHRONIC LYMPHOCYTIC LEUK OF B-CELL TYPE 05/28/2018 RAFI NGLEXIE Vernon NUISANCE WILDLIFE 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 Ot E11.9 TYPE 2 DIABETES MELLITUS WITHOUT COMPLIC 05/28/2018 RAFI NGLEXIE Vernon NUISANCE WILDLIFE 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 Ot I10 ESSENTIAL (PRIMARY) HYPERTENSION 05/28/2018 RAFI NGLEXIE Vernon NUISANCE WILDLIFE 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 Ot Z79.4 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 REPAIRER (CURRENT) USE OF INSULIN 05/28/2018 RAFI NGLEXIE Vernon NUISANCE WILDLIFE 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 Ot Z79.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 05/28/2018 BERENICEMAUDE NUISANCE WILDLIFE 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 Ot R92.8 OTH ABN AND INCONCLUSIVE FINDINGS ON DX 05/28/2018 VIRY MORAN Ot C91.10 CHRONIC LYMPHOCYTIC LEUK OF B-CELL TYPE 05/28/2018 VIRY MORAN Ot E11.9 TYPE 2 DIABETES MELLITUS WITHOUT COMPLIC 05/28/2018 VIRY MORAN Ot I10 ESSENTIAL (PRIMARY) HYPERTENSION 05/28/2018 VIRY MORAN Ot Z79.4 HALFWAY (CURRENT) USE OF INSULIN 05/28/2018 VIRY MORAN Ot Z79.899 OTHER HALFWAY (CURRENT) DRUG THERAPY 05/28/2018 ANTONINO WALLER APRN Ot N64.52 NIPPLE DISCHARGE 05/28/2018 RAFI NGLEXIE Vernon NUISANCE WILDLIFE 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 Ot C91.10 CHRONIC LYMPHOCYTIC LEUK OF B-CELL TYPE 05/28/2018 BERENICE MAUDE S NUISANCE WILDLIFE 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 Ot R22.31 LOCALIZED SWELLING, MASS AND LUMP, RIGHT 05/28/2018 BERENICE MAUDE S NUISANCE WILDLIFE 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 Ot R92.8 OTH ABN AND INCONCLUSIVE FINDINGS ON DX 05/28/2018 MARY SAHU, CHITO Rawls Ot 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 05/28/2018 MARY SAHU, CHITO Rawls Ot 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 05/28/2018 MARY SAHU, CHITO Rawls Ot Z53.09 PROC/TRTMT NOT CARRIED OUT BECAUSE OF CO 05/28/2018 CHITO HERNANDEZ MD, Ot C79.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 MALIGNANT NEOPLASM OF OTHER SP 05/28/2018 CHITO HERNANDEZ MD Ot R92.8 OTH ABN AND INCONCLUSIVE FINDINGS ON DX 05/28/2018 VIRY MORAN Ot C91.10 CHRONIC LYMPHOCYTIC LEUK OF B-CELL TYPE 05/28/2018 VIRY MORAN Ot E11.9 TYPE 2 DIABETES MELLITUS WITHOUT COMPLIC 05/28/2018 VIRY MORAN Ot I10 ESSENTIAL (PRIMARY) HYPERTENSION 05/28/2018 VIRY MORAN Ot Z79.4 HALFWAY (CURRENT) USE OF INSULIN 05/28/2018 VIRY MORAN Ot Z79.899 OTHER HALFWAY (CURRENT) DRUG THERAPY 05/28/2018 MARY SAHU, CHITO Rawls Ot C50.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 05/28/2018 CHITO HERNANDEZ MD Ot K80.20 CALCULUS OF GALLBLADDER W/O CHOLECYSTITI 05/28/2018 CHITO HERNANDEZ MD Ot K80.20 CALCULUS OF GALLBLADDER W/O CHOLECYSTITI 05/28/2018 CHITO HERNANDEZ MD Ot R92.8 OTH ABN AND INCONCLUSIVE FINDINGS ON DX 05/28/2018 MAUDE NGP Ot C91.10 CHRONIC LYMPHOCYTIC LEUK OF B-CELL TYPE 05/28/2018 MAUDE NG NUISANCE WILDLIFE 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 Ot R22.31 LOCALIZED SWELLING, MASS AND LUMP, RIGHT 05/28/2018 MAUDE NG Ot R92.8 OTH ABN AND INCONCLUSIVE FINDINGS ON DX 05/30/2018 VIRY MORAN Ot 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, 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 05/30/2018 MAUDE NGP Ot 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, 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 05/30/2018 MAUDE NG NUISANCE WILDLIFE 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 Ot 250.00 DIAB ALONDRA WO COMPL, TYPE II OR UNSPEC TY 05/30/2018 MAUDE NG NUISANCE WILDLIFE 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 Ot 438.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,HEMIPLEGIA AFFECTING 05/30/2018 MAUDE NG NUISANCE WILDLIFE 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 Ot 780.79 OTH MALAISE FATIGUE 05/30/2018 MAUDE NG NUISANCE WILDLIFE 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 Ot V58.67 LONG-TERM (CURRENT) USE OF INSULIN 05/30/2018 MAUDE NG NUISANCE WILDLIFE 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 Ot V58.69 OTH MED,LT,CURRENT USE 05/30/2018 MAUDE NG NUISANCE WILDLIFE 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 Ot 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, 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 05/30/2018 MAUDE NGP Ot V58.69 OTH MED,LT,CURRENT USE 05/30/2018 VIRY MORAN Sofia Ot 729.5 PAIN IN LIMB 05/30/2018 MAUDE NG NUISANCE WILDLIFE 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 Ot 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, 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 05/30/2018 MAUDE NG NUISANCE WILDLIFE 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 Ot 250.00 DIAB ALONDRA WO COMPL, TYPE II OR UNSPEC TY 05/30/2018 MAUDE NG NUISANCE WILDLIFE 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 Ot V58.67 LONG-TERM (CURRENT) USE OF INSULIN 05/30/2018 MAUDE NGP Ot V58.69 OTH MED,LT,CURRENT USE 05/30/2018 MAUDE NGP Ot V76.12 OTH SCREEN MAMMO-MALIGN NEOPLASM OF SILVINA 05/30/2018 MAUDE NG NUISANCE WILDLIFE 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 Ot 793.80 UNSPEC ABNORMAL MAMMOGRAM 05/30/2018 Ot 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, 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 05/30/2018 Ot 250.00 DIAB ALONDRA WO COMPL, TYPE II OR UNSPEC TY 05/30/2018 Ot V58.67 LONG-TERM (CURRENT) USE OF INSULIN 05/30/2018 Ot V58.69 OTH MED,LT,CURRENT USE 05/30/2018 Ot 272.4 HYPERLIPIDEMIA NEC/NOS 05/30/2018 MADL, DELLA L NUISANCE WILDLIFE 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 Ot R22.31 LOCALIZED SWELLING, MASS AND LUMP, RIGHT 05/30/2018 MAUDE NG NUISANCE WILDLIFE 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 Ot C91.10 CHRONIC LYMPHOCYTIC LEUK OF B-CELL TYPE 05/30/2018 MAUDE NG NUISANCE WILDLIFE 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 Ot E11.9 TYPE 2 DIABETES MELLITUS WITHOUT COMPLIC 05/30/2018 MAUDE NG NUISANCE WILDLIFE 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 Ot I10 ESSENTIAL (PRIMARY) HYPERTENSION 05/30/2018 MAUDE NG NUISANCE WILDLIFE 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 Ot Z79.4 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 REPAIRER (CURRENT) USE OF INSULIN 05/30/2018 MAUDE NG NUISANCE WILDLIFE 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 Ot Z79.899 OTHER HALFWAY (CURRENT) DRUG THERAPY 05/30/2018 MAUDE NG NUISANCE WILDLIFE 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 Ot C91.10 CHRONIC LYMPHOCYTIC LEUK OF B-CELL TYPE 05/30/2018 MADUE NG NUISANCE WILDLIFE 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 Ot E11.9 TYPE 2 DIABETES MELLITUS WITHOUT COMPLIC 05/30/2018 MAUDE NG NUISANCE WILDLIFE 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 Ot I10 ESSENTIAL (PRIMARY) HYPERTENSION 05/30/2018 MAUDE NG NUISANCE WILDLIFE 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 Ot Z79.4 HALFWAY (CURRENT) USE OF INSULIN 05/30/2018 MAUDE NG NUISANCE WILDLIFE 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 Ot Z79.899 OTHER HALFWAY (CURRENT) DRUG THERAPY 05/30/2018 MAUDE NG NUISANCE WILDLIFE 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 Ot R92.8 OTH ABN AND INCONCLUSIVE FINDINGS ON DX 05/30/2018 VIRY MORAN Sofia Ot C91.10 CHRONIC LYMPHOCYTIC LEUK OF B-CELL TYPE 05/30/2018 SASHAVIRY ROWLAND N Ot E11.9 TYPE 2 DIABETES MELLITUS WITHOUT COMPLIC 05/30/2018 SASHAVIRY ROWLAND N Ot I10 ESSENTIAL (PRIMARY) HYPERTENSION 05/30/2018 VIRY MORAN N Ot Z79.4 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 REPAIRER (CURRENT) USE OF INSULIN 05/30/2018 VIRY MORAN N Ot Z79.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 05/30/2018 ANGELA WALLERELE Florian FRY Ot N64.52 NIPPLE DISCHARGE 05/30/2018 NGMAUDE Vernon NUISANCE WILDLIFE 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 Ot C91.10 CHRONIC LYMPHOCYTIC LEUK OF B-CELL TYPE 05/30/2018 MAUDE NG NUISANCE WILDLIFE 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 Ot R22.31 LOCALIZED SWELLING, MASS AND LUMP, RIGHT 05/30/2018 NGMAUDE Vernon NUISANCE WILDLIFE 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 Ot R92.8 OTH ABN AND INCONCLUSIVE FINDINGS ON DX 05/30/2018 MARY SAHU, CHITO Rawls Ot 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 05/30/2018 MARY SAHU, CHITO Rawls Ot 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 05/30/2018 MARY SAHU, CHITO Rawls Ot Z53.09 PROC/TRTMT NOT CARRIED OUT BECAUSE OF CO 05/30/2018 MARY SAHU, CHITO Rawls Ot C79.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 MALIGNANT NEOPLASM OF OTHER SP 05/30/2018 CHITO HERNANDEZ MD Ot R92.8 OTH ABN AND INCONCLUSIVE FINDINGS ON DX 05/30/2018 SASHAVIRY ROWLAND Sofia Ot C91.10 CHRONIC LYMPHOCYTIC LEUK OF B-CELL TYPE 05/30/2018 SASHA, VIRY Black Ot E11.9 TYPE 2 DIABETES MELLITUS WITHOUT COMPLIC 05/30/2018 SASHA, VIRY Black Ot I10 ESSENTIAL (PRIMARY) HYPERTENSION 05/30/2018 SASHA, VIRY Black Ot Z79.4 HALFWAY (CURRENT) USE OF INSULIN 05/30/2018 SASHA, VIRY Black Ot Z79.899 OTHER HALFWAY (CURRENT) DRUG THERAPY 05/30/2018 CHITO HERNANDEZ MD Ot C50.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 05/30/2018 CHITO HERNANDEZ MD Ot K80.20 CALCULUS OF GALLBLADDER W/O CHOLECYSTITI 05/30/2018 MAUDE NG NUISANCE WILDLIFE 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 Ot C91.10 CHRONIC LYMPHOCYTIC LEUK OF B-CELL TYPE 05/30/2018 MAUDE NG NUISANCE WILDLIFE 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 Ot R22.31 LOCALIZED SWELLING, MASS AND LUMP, RIGHT 05/30/2018 MAUDE NG NUISANCE WILDLIFE 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 Ot R92.8 OTH ABN AND INCONCLUSIVE FINDINGS ON DX 06/03/2018 CHITO HERNANDEZ MD, Ot C50.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 06/03/2018 CHITO HERNANDEZ MD, Ot 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 06/03/2018 CHITO HERNANDEZ MD Ot C91.10 CHRONIC LYMPHOCYTIC LEUK OF B-CELL TYPE 06/03/2018 CHITO HERNANDEZ MD Ot E11.65 TYPE 2 DIABETES MELLITUS WITH HYPERGLYCE 06/03/2018 CHITO HERNANDEZ MD Ot E66.9 OBESITY, UNSPECIFIED 06/03/2018 CHITO HERNANDEZ MD Ot E78.00 PURE HYPERCHOLESTEROLEMIA, UNSPECIFIED 06/03/2018 CHITO HERNANDEZ MD Ot I10 ESSENTIAL (PRIMARY) HYPERTENSION 06/03/2018 CHITO HERNANDEZ MD Ot I69.354 HEMIPLGA FOLLOWING CEREBRAL INFRC AFFECT 06/03/2018 CHITO HERNANDEZ MD Ot K21.9 GASTRO-ESOPHAGEAL REFLUX DISEASE WITHOUT 06/03/2018 CHITO HERNANDEZ MD Ot K59.00 CONSTIPATION, UNSPECIFIED 06/03/2018 CHITO HERNANDEZ MD, Ot K80.20 CALCULUS OF GALLBLADDER W/O CHOLECYSTITI 06/03/2018 CHITO HERNANDEZ MD, Ot N19 UNSPECIFIED KIDNEY FAILURE 06/03/2018 CHITO HERNANDEZ MD, Ot N31.9 NEUROMUSCULAR DYSFUNCTION OF BLADDER, UN 06/03/2018 CHITO HERNANDEZ MD, Ot R33.8 OTHER RETENTION OF URINE 06/03/2018 CHITO HERNANDEZ MD, Ot Z23 ENCOUNTER FOR IMMUNIZATION 06/03/2018 CHITO HERNANDEZ MD, Ot Z68.34 BODY MASS INDEX (BMI) 34.0-34.9, ADULT 06/03/2018 CHITO HERNANDEZ MD, Ot Z79.4 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 REPAIRER (CURRENT) USE OF INSULIN 06/05/2018 CHITO HERNANDEZ MD, Ot C50.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 06/10/2018 CHITO HERNANDEZ MD, Ot R92.8 OTH ABN AND INCONCLUSIVE FINDINGS ON DX 06/19/2018 EDWIN MARQUEZ MD Ot E11.9 TYPE 2 DIABETES MELLITUS WITHOUT COMPLIC 06/19/2018 EDWIN MARQUEZ MD, Ot E78.00 PURE HYPERCHOLESTEROLEMIA, UNSPECIFIED 06/19/2018 EDWIN MARQUEZ MD, Ot G89.29 OTHER CHRONIC PAIN 06/19/2018 EDWIN MARQUEZ MD, Ot I10 ESSENTIAL (PRIMARY) HYPERTENSION 06/19/2018 EDWIN MARQUEZ MD, Ot K21.9 GASTRO-ESOPHAGEAL REFLUX DISEASE WITHOUT 06/19/2018 EDWIN MARQUEZ MD, Ot T81.89XA OTH COMPLICATIONS OF PROCEDURES, NEC, IN 06/19/2018 EDWIN MARQUEZ MD, Ot Z79.02 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 REPAIRER (CURRENT) USE OF ANTITHROMBOTI 06/19/2018 EDWIN MARQUEZ MD, Ot Z79.4 HALFWAY (CURRENT) USE OF INSULIN 06/19/2018 EDWIN MARQUEZ MD, Ot Z79.82 HALFWAY (CURRENT) USE OF ASPIRIN 06/19/2018 EDWIN MARQUEZ MD, Ot Z82.49 FAMILY HX OF ISCHEM HEART DIS AND OTH DI 06/19/2018 EDWIN MARQUEZ MD, Ot Z85.3 PERSONAL HISTORY OF MALIGNANT NEOPLASM O 06/19/2018 EDWIN MARQUEZ MD, Ot Z85.6 PERSONAL HISTORY OF LEUKEMIA 06/19/2018 EDWIN MARQUEZ MD, Ot Z86.73 PRSNL HX OF TIA (TIA), AND CEREB INFRC W 06/19/2018 EDWIN MARQUEZ MD, Ot Z88.8 ALLERGY STATUS TO OT DRUG/MEDS/BIOL SUB 06/19/2018 EDWIN MARQUEZ MD, Ot Z90.11 ACQUIRED ABSENCE OF RIGHT BREAST AND NIP 06/19/2018 EDWIN MARQUEZ MD, Ot Z90.49 ACQUIRED ABSENCE OF OTHER SPECIFIED PART 06/19/2018 EDWIN MARQUEZ MD, Ot Z98.51 TUBAL LIGATION STATUS 06/19/2018 EDWIN MARQUEZ MD, Ot Z98.890 OTHER SPECIFIED POSTPROCEDURAL STATES 06/21/2018 EDWIN MARQUEZ MD, Ot E11.9 TYPE 2 DIABETES MELLITUS WITHOUT COMPLIC 06/21/2018 EDWIN MARQUEZ MD, Ot E78.00 PURE HYPERCHOLESTEROLEMIA, UNSPECIFIED 06/21/2018 EDWIN MARQUEZ MD, Ot G89.29 OTHER CHRONIC PAIN 06/21/2018 EDWIN MARQUEZ MD, Ot I10 ESSENTIAL (PRIMARY) HYPERTENSION 06/21/2018 EDWIN MARQUEZ MD, Ot K21.9 GASTRO-ESOPHAGEAL REFLUX DISEASE WITHOUT 06/21/2018 EDWIN MARQUEZ MD, Ot T81.89XA OTH COMPLICATIONS OF PROCEDURES, NEC, IN 06/21/2018 EDWIN MARQUEZ MD, Ot Z79.02 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 REPAIRER (CURRENT) USE OF ANTITHROMBOTI 06/21/2018 EDWIN MARQUEZ MD, Ot Z79.4 HALFWAY (CURRENT) USE OF INSULIN 06/21/2018 EDWIN MARQUEZ MD, Ot Z79.82 HALFWAY (CURRENT) USE OF ASPIRIN 06/21/2018 EDWIN MARQUEZ MD, Ot Z82.49 FAMILY HX OF ISCHEM HEART DIS AND OTH DI 06/21/2018 BRUEGGEMANN MD, EDWIN T Ot Z85.3 PERSONAL HISTORY OF MALIGNANT NEOPLASM O 06/21/2018 ALMA SAHU, EDWIN Carvajal Ot Z85.6 PERSONAL HISTORY OF LEUKEMIA 06/21/2018 ALMA SAHU, EDWIN Carvajal Ot Z86.73 PRSNL HX OF TIA (TIA), AND CEREB INFRC W 06/21/2018 ALMA SAHU, EDWIN Carvajal Ot Z88.8 ALLERGY STATUS TO OTH DRUG/MEDS/BIOL SUB 06/21/2018 EDWIN MARQUEZ MD Ot Z90.11 ACQUIRED ABSENCE OF RIGHT BREAST AND NIP 06/21/2018 EDWIN MARQUEZ MD, Ot Z90.49 ACQUIRED ABSENCE OF OTHER SPECIFIED PART 06/21/2018 EDWIN MARQUEZ MD Ot Z98.51 TUBAL LIGATION STATUS 06/21/2018 EDWIN MARQUEZ MD Ot Z98.890 OTHER SPECIFIED POSTPROCEDURAL STATES 07/04/2018 VIRY MORAN Ot C91.10 CHRONIC LYMPHOCYTIC LEUK OF B-CELL TYPE 07/04/2018 VIRY MORAN N Ot E11.9 TYPE 2 DIABETES MELLITUS WITHOUT COMPLIC 07/04/2018 VIRY MORAN N Ot I10 ESSENTIAL (PRIMARY) HYPERTENSION 07/04/2018 VIRY MORAN N Ot Z79.4 HALFWAY (CURRENT) USE OF INSULIN 07/04/2018 VIRY MORAN Ot Z79.899 OTHER HALFWAY (CURRENT) DRUG THERAPY 08/05/2018 VIRY MORAN Ot C91.10 CHRONIC LYMPHOCYTIC LEUK OF B-CELL TYPE 08/05/2018 VIRY MORAN N Ot E11.9 TYPE 2 DIABETES MELLITUS WITHOUT COMPLIC 08/05/2018 VIRY MORAN N Ot I10 ESSENTIAL (PRIMARY) HYPERTENSION 08/05/2018 VIRY MORAN N Ot Z79.4 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 REPAIRER (CURRENT) USE OF INSULIN 08/05/2018 VIRY MORAN N Ot Z79.899 OTHER HALFWAY (CURRENT) DRUG THERAPY 08/08/2018 VIRY MORAN N Ot C91.10 CHRONIC LYMPHOCYTIC LEUK OF B-CELL TYPE 08/08/2018 VIRY MORAN N Ot E11.9 TYPE 2 DIABETES MELLITUS WITHOUT COMPLIC 08/08/2018 VIRY MORAN N Ot I10 ESSENTIAL (PRIMARY) HYPERTENSION 08/08/2018 VIRY MORAN N Ot Z79.4 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 REPAIRER (CURRENT) USE OF INSULIN 08/08/2018 VIRY MORAN N Ot Z79.899 OTHER HALFWAY (CURRENT) DRUG THERAPY 08/08/2018 VIRY MORAN Sofia Ot C91.10 CHRONIC LYMPHOCYTIC LEUK OF B-CELL TYPE 08/08/2018 VIRY MORAN N Ot E11.9 TYPE 2 DIABETES MELLITUS WITHOUT COMPLIC 08/08/2018 SASHA DUSTYWILEY N Ot I10 ESSENTIAL (PRIMARY) HYPERTENSION 08/08/2018 VIRY MORAN N Ot Z79.4 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 REPAIRER (CURRENT) USE OF INSULIN 08/08/2018 VIRY MORAN N Ot Z79.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 08/14/2018 VIRY MORAN N Ot C91.10 CHRONIC LYMPHOCYTIC LEUK OF B-CELL TYPE 08/14/2018 SASHA DUSTYWILEY N Ot E11.9 TYPE 2 DIABETES MELLITUS WITHOUT COMPLIC 08/14/2018 SASHA DUSTYWILEY N Ot I10 ESSENTIAL (PRIMARY) HYPERTENSION 08/14/2018 VIRY MORAN N Ot Z79.4 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 REPAIRER (CURRENT) USE OF INSULIN 08/14/2018 VIRY MORAN N Ot Z79.899 OTHER HALFWAY (CURRENT) DRUG THERAPY 08/28/2018 MAUDE NG NUISANCE WILDLIFE 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 Ot Z78.0 ASYMPTOMATIC MENOPAUSAL STATE 08/28/2018 MAUDE NG NUISANCE WILDLIFE 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 Ot Z78.0 ASYMPTOMATIC MENOPAUSAL STATE 08/30/2018 MAUDE NG NUISANCE WILDLIFE 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 Ot C50.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 08/30/2018 MAUDE NG NUISANCE WILDLIFE 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 Ot Z13.820 ENCOUNTER FOR SCREENING FOR OSTEOPOROSIS 08/30/2018 MAUDE NG NUISANCE WILDLIFE 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 Ot Z78.0 ASYMPTOMATIC MENOPAUSAL STATE 09/03/2018 MARY SAHU, CHITO Rawls Ot C50.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 09/03/2018 MARY SAHU, CHITO Rawls Ot R92.8 OT ABN AND INCONCLUSIVE FINDINGS ON DX 09/18/2018 SASHA VIRY Black Ot C91.10 CHRONIC LYMPHOCYTIC LEUK OF B-CELL TYPE 09/18/2018 SASHA VIRY N Ot E11.9 TYPE 2 DIABETES MELLITUS WITHOUT COMPLIC 09/18/2018 SASHAVIRY N Ot I10 ESSENTIAL (PRIMARY) HYPERTENSION 09/18/2018 SASHA VIRY N Ot Z79.4 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 REPAIRER (CURRENT) USE OF INSULIN 09/18/2018 SASHA VIRY Black Ot Z79.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 09/19/2018 BERENICE MAUDE Vernon NUISANCE WILDLIFE 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 Ot C50.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 09/19/2018 RAFI NGLEXIE Janeen NUISANCE WILDLIFE 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 Ot Z13.820 ENCOUNTER FOR SCREENING FOR OSTEOPOROSIS 09/19/2018 MAUDE NG NUISANCE WILDLIFE 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 Ot Z78.0 ASYMPTOMATIC MENOPAUSAL STATE 11/05/2018 SASHA VIRY Black Ot C91.10 CHRONIC LYMPHOCYTIC LEUK OF B-CELL TYPE 11/05/2018 SASHA VIRY N Ot E11.9 TYPE 2 DIABETES MELLITUS WITHOUT COMPLIC 11/05/2018 SASHAVIRY Ot I10 ESSENTIAL (PRIMARY) HYPERTENSION 11/05/2018 SASHA VIRY Black Ot Z79.4 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 REPAIRER (CURRENT) USE OF INSULIN 11/05/2018 SASHA VIRY Black Ot Z79.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 11/06/2018 SASHAVIRY Ot C91.10 CHRONIC LYMPHOCYTIC LEUK OF B-CELL TYPE 11/06/2018 SASHAVIRY N Ot E11.9 TYPE 2 DIABETES MELLITUS WITHOUT COMPLIC 11/06/2018 VIRY MORAN N Ot I10 ESSENTIAL (PRIMARY) HYPERTENSION 11/06/2018 SASHAVIRY N Ot Z79.4 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 REPAIRER (CURRENT) USE OF INSULIN 11/06/2018 SASHAVIRY Ot Z79.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 Procedures Code Description [place] [id number] ROUTINE VENIPUNCTURE 06/26/2012 01599 XRAY FOOT RIGHT COMP MIN 3 VIEWS 06/26/2012 48831 A1C (IN-HOUSE) 06/26/2012 07722 MICRO ALBUMIN-IN HOUSE 06/26/2012 18144 UA W/ CULTURE IF INDICATED 06/26/2012 60866 BMP 06/26/2012 [id number] GFR CALC (RESULT ONLY) 06/26/2012 58700 LIPID PANEL 07/03/2012 49077 VITAMIN D 25-HYDROXY (D2,D3, TOTAL) 07/04/2012 69111 TSH 07/04/2012 61077 ROUTINE VENIPUNCTURE 07/04/2012 48825 BARIUM SWALLOW XRAY MODIFIED 07/04/2012 Physical Speech Therapy, [facility] 08/22/2012 10552 ROUTINE VENIPUNCTURE 10/16/2012 42332 MICRO ALBUMIN-IN HOUSE 10/16/2012 16336 A1C (IN-HOUSE) 10/16/2012 31403 CMP 10/16/2012 3832125 GFR CALC (RESULT ONLY) 10/16/2012 59993 CBC 10/16/2012 98773 ROUTINE VENIPUNCTURE 11/13/2012 57209 CBC 11/13/2012 56416 PERIPHERIAL BLOOD SMEAR 11/19/2012 [id number] HEMATOLOGY OTHER REPORT 11/20/2012 91360 ROUTINE VENIPUNCTURE 11/28/2012 Medical O Viry Moran 11/28/2012 50791 PERIPHERAL BLOOD FLOW CYTOMETRY 12/02/2012 78754 ROUTINE VENIPUNCTURE 01/23/2013 73142 A1C (IN-HOUSE) 01/23/2013 45283 MICRO ALBUMIN-IN HOUSE 01/23/2013 59788 BMP 01/23/2013 40001 MAGNESIUM 01/23/2013 4995887 GFR CALC (RESULT ONLY) 01/23/2013 36679 A1C (IN-HOUSE) 05/07/2013 70209 ROUTINE VENIPUNCTURE 09/11/2013 89264 HEMOGLOBIN (IN-HOUSE) 09/11/2013 37472 A1C (IN-HOUSE) 09/11/2013 99279 CMP 09/11/2013 26577 LIPID PANEL 09/11/2013 33794 MAGNESIUM 09/11/2013 [id number] GFR CALC (RESULT ONLY) 09/11/2013 10429 MICROALBUMIN 09/11/2013 16725 ROUTINE VENIPUNCTURE 11/24/2013 82644 BMP 11/24/2013 55899 A1C (IN-HOUSE) 01/07/2014 74614 A1C (IN-HOUSE) 04/08/2014 84035 A1C (IN-HOUSE) 07/08/2014 78477 US BREAST ULTRASOUND, RIGHT 07/22/2014 52250 MAMMOGRAM DX, RIGHT 07/22/2014 [id number] RESECTION OF RIGHT AXILLARY LYMPHATIC, O 05/29/2018 [id number] RESECTION OF GALLBLADDER, PERCUTANEOUS E 05/29/2018 [id number] EXCISION OF RIGHT UPPER ARM SKIN, 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 MALDIVIAN 68 mL/min/1.73m2 > OR=60 eGFR 78 mL/min/1.73m2 [...] gravity of urine by test strip 1.020 1.016-1.022 Urine protein assay by test strip, semi-quantitative [...] sediment leukocyte count by microscopy (number/high power field) [HPF] NRG Bacteria detection in urine sediment [...] Automated erythrocyte mean corpuscular hemoglobin concentration measurement (mass/volume) 37 g/dL 32-36 Automated erythrocyte distribution width ratio 14.2 % 10.0- 14.5 Automated blood platelet count (count/volume) 163 10*3/uL [...] Blood monocytes automated count (number/volume) 0.5 10*3 0.0- 1.0 Automated eosinophil count 0.2 10*3/uL 0.0-0.3 Automated [...] resistant Staphylococcus aureus (MRSA) screening culture - 03/29/18 11:35 Methicillin resistant Staphylococcus aureus (MRSA) screening culture NEG NRG Capillary blood glucose measurement by glucometer (mass/volume) - 03/29/18 11:45 Capillary blood glucose measurement by glucometer (mass/volume) 242 mg/dL 70-110 Capillary blood glucose measurement by glucometer (mass/volume) - 03/29/18 14:30 Capillary blood glucose measurement by glucometer (mass/volume) 190 mg/dL 70-110 Capillary blood glucose measurement by glucometer (mass/volume) - 05/29/18 09:15 Capillary blood glucose measurement by glucometer (mass/volume) [...] Automated erythrocyte mean corpuscular hemoglobin concentration measurement (mass/volume) 32 g/dL 32-36 Automated erythrocyte distribution width ratio 14.9 % 10.0- 14.5 Automated blood platelet count (count/volume) 175 10*3/uL [...] Blood monocytes automated count (number/volume) 0.5 10*3 0.0- 1.0 Automated eosinophil count 0.2 10*3/uL 0.0-0.3 Automated [...] resistant Staphylococcus aureus (MRSA) screening culture - 05/29/18 09:30 Methicillin resistant Staphylococcus aureus (MRSA) screening culture NEG NRG Capillary blood glucose measurement by glucometer (mass/volume) - 05/29/18 15:34 Capillary blood glucose measurement by glucometer (mass/volume) 213 mg/dL 70-110 Capillary blood glucose measurement by glucometer (mass/volume) - 05/29/18 20:28 Capillary blood glucose measurement by glucometer (mass/volume) 216 mg/dL 70-110 Capillary blood glucose measurement by glucometer (mass/volume) - 05/30/18 05:29 Capillary blood glucose measurement by glucometer (mass/volume) 207 mg/dL 70-110 Capillary blood glucose measurement by glucometer (mass/volume) - 05/30/18 11:02 Capillary blood glucose measurement by glucometer (mass/volume) 214 mg/dL 70-110 Capillary blood glucose measurement by glucometer (mass/volume) - 05/30/18 16:17 Capillary blood glucose measurement by glucometer (mass/volume) 190 mg/dL 70-110 Capillary blood glucose measurement by glucometer (mass/volume) - 05/30/18 20:01 Capillary blood glucose measurement by glucometer (mass/volume) [...] Automated erythrocyte mean corpuscular hemoglobin concentration measurement (mass/volume) 31 g/dL 32-36 Automated erythrocyte distribution width ratio 15.4 % 10.0- 14.5 Automated blood platelet count (count/volume) 168 10*3/uL [...] Blood monocytes automated count (number/volume) 0.6 10*3 0.0- 1.0 Automated eosinophil count 0.1 10*3/uL 0.0-0.3 Automated [...] glucose measurement by glucometer (mass/volume) - 05/31/18 05:35 Capillary blood glucose measurement by glucometer (mass/volume) 211 mg/dL 70-110 Capillary blood glucose measurement by glucometer (mass/volume) - 05/31/18 10:55 Capillary blood glucose measurement by glucometer (mass/volume) 239 mg/dL 70-110 Capillary blood glucose measurement by glucometer (mass/volume) - 05/31/18 16:07 Capillary blood glucose measurement by glucometer (mass/volume) 320 mg/dL 70-110 Capillary blood glucose measurement by glucometer (mass/volume) - 05/31/18 20:34 Capillary blood glucose measurement by glucometer (mass/volume) 309 mg/dL 70-110 Capillary blood glucose measurement by glucometer (mass/volume) - 06/01/18 05:55 Capillary blood glucose measurement by glucometer (mass/volume) 237 mg/dL 70-110 Capillary blood glucose measurement by glucometer (mass/volume) - 06/01/18 11:19 Capillary blood glucose measurement by glucometer (mass/volume) 345 mg/dL 70-110 Capillary blood glucose measurement by glucometer (mass/volume) - 06/01/18 16:05 Capillary blood glucose measurement by glucometer (mass/volume) 269 mg/dL 70-110 Capillary blood glucose measurement by glucometer (mass/volume) - 06/01/18 21:18 Capillary blood glucose measurement by glucometer (mass/volume) 331 mg/dL 70-110 Capillary blood glucose measurement by glucometer (mass/volume) - 06/02/18 06:42 Capillary blood glucose measurement by glucometer (mass/volume) 284 mg/dL 70-110 Capillary blood glucose measurement by glucometer (mass/volume) - 06/02/18 08:00 Capillary blood glucose measurement by glucometer (mass/volume) 268 mg/dL 70-110 Capillary blood glucose measurement by glucometer (mass/volume) - 06/02/18 11:13 Capillary blood glucose measurement by glucometer (mass/volume) 316 mg/dL 70-110 Capillary blood glucose measurement by glucometer (mass/volume) - 06/02/18 16:07 Capillary blood glucose measurement by glucometer (mass/volume) 316 mg/dL 70-110 Capillary blood glucose measurement by glucometer (mass/volume) - 06/02/18 20:42 Capillary blood glucose measurement by glucometer (mass/volume) 247 mg/dL 70-110 Capillary blood glucose measurement by glucometer (mass/volume) - 06/03/18 05:44 Capillary blood glucose measurement by glucometer (mass/volume) 282 mg/dL 70-110 Capillary blood glucose measurement by glucometer (mass/volume) - 06/03/18 11:24 Capillary blood glucose measurement by glucometer (mass/volume) 255 mg/dL 70-110 TSH - 06/19/18 08:42 TSH 3.80 mIU/L 0.40-4.50 Complete blood count (CBC) with automated white blood cell (WBC) differential - 07/09/18 14:55 Blood leukocytes automated count (number/volume) 16.7 10*3/uL 4.3-11.0 Blood erythrocytes automated count (number/volume) 4.26 10*6/uL 4.35-5.85 Venous blood hemoglobin measurement (mass/volume) 12.5 g/dL 11.5-16.0 Blood hematocrit (volume fraction) 40 % 35-52 Automated erythrocyte mean corpuscular volume 94 [foz_us] 80-99 Automated erythrocyte mean corpuscular hemoglobin (mass per erythrocyte) 29 pg 25-34 Automated erythrocyte mean corpuscular hemoglobin concentration measurement (mass/volume) 31 g/dL 32-36 Automated erythrocyte distribution width ratio 14.9 % 10.0- 14.5 Automated blood platelet count (count/volume) 264 10*3/uL 130-400 Automated blood platelet mean volume measurement 11.7 [foz_us] 7.4-10.4 Automated blood neutrophils/100 leukocytes 17 % 42-75 Automated blood lymphocytes/100 leukocytes 78 % 12-44 Blood monocytes/100 leukocytes 3 % 0-12 Automated blood eosinophils/100 leukocytes 1 % 0-10 Automated blood basophils/100 leukocytes 0 % 0-10 Blood neutrophils automated count (number/volume) 2.9 10*3 1.8-7.8 Blood lymphocytes automated count (number/volume) 13.1 10*3 1.0-4.0 Blood monocytes automated count (number/volume) 0.5 10*3 0.0- 1.0 Automated eosinophil count 0.2 10*3/uL 0.0-0.3 Automated blood basophil count (count/volume) 0.1 10*3/uL 0.0-0.1 Comprehensive metabolic panel - 07/09/18 14:55 Serum or plasma sodium measurement (moles/volume) 145 mmol/L 135-145 Serum or plasma potassium measurement (moles/volume) 4.2 mmol/L 3.6-5.0 Serum or plasma chloride measurement (moles/volume) 112 mmol/L 98-107 Carbon dioxide 22 mmol/L 21-32 Serum or plasma anion gap determination (moles/volume) 11 mmol/L 5-14 Serum or plasma urea nitrogen measurement (mass/volume) 17 mg/dL 7-18 Serum or plasma creatinine measurement (mass/volume) 0.82 mg/dL 0.60-1.30 Serum or plasma urea nitrogen/creatinine mass ratio 21 NRG Serum or plasma creatinine measurement with calculation of estimated glomerular filtration rate > NRG Serum or plasma glucose measurement (mass/volume) 76 mg/dL 70-105 Serum or plasma calcium measurement (mass/volume) 9.9 mg/dL 8.5-10.1 Serum or plasma total bilirubin measurement (mass/volume) 0.4 mg/dL 0.1-1.0 Serum or plasma alkaline phosphatase measurement (enzymatic activity/volume) 95 U/L 40-136 Serum or plasma aspartate aminotransferase measurement (enzymatic activity/volume) 28 U/L 5-34 Serum or plasma alanine aminotransferase measurement (enzymatic activity/volume) 38 U/L 0-55 Serum or plasma protein measurement (mass/volume) 7.2 g/dL 6.4-8.2 Serum or plasma albumin measurement (mass/volume) 4.4 g/dL 3.2-4.5 CALCIUM CORRECTED 9.6 mg/dL 8.5-10.1 Lactate dehydrogenase 1 [enzymatic activity/volume] in serum or plasma - 07/09/18 14:55 Lactate dehydrogenase 1 [enzymatic activity/volume] in serum or plasma 228 U/L 125-220 Complete blood count (CBC) with automated white blood cell (WBC) differential - 01/07/19 10:20 Blood leukocytes automated count (number/volume) 16.1 10*3/uL 4.3-11.0 Blood erythrocytes automated count (number/volume) 4.21 10*6/uL 4.35-5.85 Venous blood hemoglobin measurement (mass/volume) 12.6 g/dL 11.5-16.0 Blood hematocrit (volume fraction) 39 % 35-52 Automated erythrocyte mean corpuscular volume 93 [foz_us] 80-99 Automated erythrocyte mean corpuscular hemoglobin (mass per erythrocyte) 30 pg 25-34 Automated erythrocyte mean corpuscular hemoglobin concentration measurement (mass/volume) 32 g/dL 32-36 Automated erythrocyte distribution width ratio 14.5 % 10.0- 14.5 Automated blood platelet count (count/volume) 171 10*3/uL 130-400 Automated blood platelet mean volume measurement 12.3 [foz_us] 7.4-10.4 Automated blood neutrophils/100 leukocytes 19 % 42-75 Automated blood lymphocytes/100 leukocytes 77 % 12-44 Blood monocytes/100 leukocytes 3 % 0-12 Automated blood eosinophils/100 leukocytes 1 % 0-10 Automated blood basophils/100 leukocytes 0 % 0-10 Blood neutrophils automated count (number/volume) 3.0 10*3 1.8-7.8 Blood lymphocytes automated count (number/volume) 12.4 10*3 1.0-4.0 Blood monocytes automated count (number/volume) 0.5 10*3 0.0- 1.0 Automated eosinophil count 0.1 10*3/uL 0.0-0.3 Automated blood basophil count (count/volume) 0.1 10*3/uL 0.0-0.1 PT panel in platelet poor plasma by coagulation assay - 01/07/19 10:20 Prothrombin time (PT) in platelet poor plasma by coagulation assay 13.2 s 12.2-14.7 INR in platelet poor plasma or blood by coagulation assay 1.0 0.8-1.4 Activated partial thromboplastin time (aPTT) in platelet poor plasma bycoagulation assay - 01/07/19 10:20 Activated partial thromboplastin time (aPTT) in platelet poor plasma bycoagulation assay 30 s 24-35 Manual absolute plasma cell count - 01/07/19 10:20 Blood monocytes/100 leukocytes 7 % NRG Manual blood segmented neutrophils/100 leukocytes 24 % NRG Blood band neutrophils/100 leukocytes 1 % NRG Manual blood lymphocytes/100 leukocytes 68 % NR Blood erythrocyte morphology finding identification NORMAL NR Comprehensive metabolic panel - 01/07/19 10:20 Serum or plasma sodium measurement (moles/volume) 142 mmol/L 135-145 Serum or plasma potassium measurement (moles/volume) 4.1 mmol/L 3.6-5.0 Serum or plasma chloride measurement (moles/volume) 107 mmol/L 98-107 Carbon dioxide 24 mmol/L 21-32 Serum or plasma anion gap determination (moles/volume) 11 mmol/L 5-14 Serum or plasma urea nitrogen measurement (mass/volume) 20 mg/dL 7-18 Serum or plasma creatinine measurement (mass/volume) 0.99 mg/dL 0.60-1.30 Serum or plasma urea nitrogen/creatinine mass ratio 20 NRG Serum or plasma creatinine measurement with calculation of estimated glomerular filtration rate 56 NRG Serum or plasma glucose measurement (mass/volume) 177 mg/dL 70-105 Serum or plasma calcium measurement (mass/volume) 9.6 mg/dL 8.5-10.1 Serum or plasma total bilirubin measurement (mass/volume) 0.4 mg/dL 0.1-1.0 Serum or plasma alkaline phosphatase measurement (enzymatic activity/volume) 91 U/L 40-136 Serum or plasma aspartate aminotransferase measurement (enzymatic activity/volume) 18 U/L 5-34 Serum or plasma alanine aminotransferase measurement (enzymatic activity/volume) 24 U/L 0-55 Serum or plasma protein measurement (mass/volume) 6.9 g/dL 6.4-8.2 Serum or plasma albumin measurement (mass/volume) 4.4 g/dL 3.2-4.5 CALCIUM CORRECTED 9.3 mg/dL 8.5-10.1 Magnesium - 01/07/19 10:20 Magnesium 2.1 mg/dL 1.8-2.4 Serum or plasma amylase measurement (enzymatic activity/volume) - 01/07/19 10:20 Serum or plasma amylase measurement (enzymatic activity/volume) 57 U/L 25-125 Lipase - 01/07/19 10:20 Lipase 20 U/L 8-78 Complete urinalysis with reflex to culture - 01/07/19 22:29 Urine color determination YELLOW NRG Urine clarity determination CLEAR NRG Urine pH measurement by test strip 6 5-9 Specific gravity of urine by test strip 1.015 1.016-1.022 Urine protein assay by test strip, semi-quantitative 1+ NEGATIVE Urine glucose detection by automated test strip 4+ NEGATIVE Erythrocytes detection in urine sediment by light microscopy NEGATIVE NEGATIVE Urine ketones detection by automated test strip NEGATIVE NEGATIVE Urine nitrite detection by test strip NEGATIVE NEGATIVE Urine total bilirubin detection by test strip NEGATIVE NEGATIVE Urine urobilinogen measurement by automated test strip (mass/volume) NORMAL NORMAL Urine leukocyte esterase detection by dipstick NEGATIVE NEGATIVE Automated urine sediment erythrocyte count by microscopy (number/high power field) NONE NRG Automated urine sediment leukocyte count by microscopy (number/high power field) NONE NRG Bacteria detection in urine sediment by light microscopy NEGATIVE NRG Squamous epithelial cells detection in urine sediment by light microscopy 0-2 NRG Crystals detection in urine sediment by light microscopy NONE NRG Casts detection in urine sediment by light microscopy NONE NRG Mucus detection in urine sediment by light microscopy NEGATIVE NRG Complete urinalysis with reflex to culture NO NRG Encounters ACCT No. Visit Date/Time Discharge Status Pt. Type Provider Facility Loc./Unit Complaint [id number] 01/01/2019 14:20:00 01/01/2019 23:59:59 CLS Outpatient JACIEL ONOFRE [facility] [id number] 06/19/2018 08:40:00 Document Registration [id number] 07/04/2017 11:20:00 Document Registration [id number] 11/06/2018 00:13:00 11/06/2018 23:59:59 CLS Preadmit VIRY MORAN [facility] ONC [id number] 11/05/2018 09:02:00 11/05/2018 00:01:00 DIS Outpatient VIRY MORAN [facility] ONC [id number] 08/29/2018 10:14:00 08/29/2018 23:59:59 CLS Outpatient MAUDE NG [facility] RAD POST MENOPAUSE,CANCER OF RIGHT BREAST [id number] 07/09/2018 14:44:00 08/05/2018 00:01:00 DIS Outpatient VIRY MORAN [facility] ONC [id number] 07/04/2018 11:00:00 07/04/2018 23:59:59 CLS Preadmit VIRY MORAN [facility] RAD POST MENOPAUSAL [id number] 06/19/2018 18:51:00 06/19/2018 20:45:00 DIS Emergency ALMA SAHU, EDWIN Carvajal [facility] ER DRAIN TUBE ISSUE,POKING IN BACK [id number] 05/29/2018 09:00:00 05/29/2018 23:59:59 CLS Inpatient CHITO HERNANDEZ MD [facility] 4TH GALLSTONES,METASTATIC DUCTAL CARCINOMA RT BREAST [id number] 05/27/2018 05:38:00 05/27/2018 14:02:00 DIS Outpatient CHITO HERNANDEZ MD [facility] PREOP GALLSTONES,METASTATIC DUCTAL CARCINOMA RT BREAST [id number] 05/15/2018 14:56:00 05/15/2018 23:59:59 CLS Outpatient CHITO HERNANDEZ MD [facility] RAD RUQ PAIN,GALLSTONES [id number] 05/14/2018 10:05:00 05/14/2018 23:59:59 CLS Outpatient CHITO HERNANDEZ MD [facility] CARD METASTATIC BREAST CANCER [id number] 05/10/2018 11:46:00 05/10/2018 23:59:59 CLS Preadmit CHITO HERNANDEZ MD [facility] RAD METASTATIC BREAST CANCER [id number] 05/07/2018 13:21:00 05/07/2018 23:59:59 CLS Outpatient CHITO HERNANDEZ MD [facility] RAD METASTATIC BREAST CA,ABN MRI [id number] 04/10/2018 10:17:00 05/07/2018 10:13:00 DIS Outpatient VIRY MORAN [facility] ONC [id number] 04/09/2018 14:21:00 04/09/2018 15:09:00 DIS Emergency MONTSERRAT LÓPEZ [facility] ER POST OP SITE OOZING [id number] 04/05/2018 07:45:00 04/05/2018 23:59:59 CLS Outpatient CHITO HERNANDEZ MD [facility] RAD C79.9 METASTATIC CA [id number] 04/04/2018 07:45:00 04/04/2018 23:59:59 CLS Outpatient CHITO HERNANDEZ MD [facility] LAB METASTATIC CANCER RIGHT AXILLA [id number] 03/29/2018 11:20:00 03/29/2018 15:35:00 DIS Outpatient CHITO HERNANDEZ MD [facility] SDC RIGHT AXILLA LUMP [id number] 03/27/2018 05:35:00 03/27/2018 23:59:59 CLS Outpatient CHITO HERNANDEZ MD [facility] PREOP RIGHT AXILLA LUMP [id number] 03/04/2018 10:21:00 03/04/2018 23:59:59 CLS Outpatient MAUDE NG [employer]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 [employer] 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 [facility] RAD 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 [id number] 10/02/2017 14:07:00 10/02/2017 00:01:00 DIS Outpatient VIRY MORAN [facility] ONC [id number] 08/23/2017 20:53:00 08/23/2017 23:20:00 DIS Emergency DOMINIQUE SAHU, RUBY aDrby [facility] ER LT RIB/HIP PAIN AFTER FALL [id number] 08/09/2017 10:08:00 08/09/2017 13:06:00 DIS Emergency 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 STORE TEAM MEMBER [facility] ER NAUSEA,HEADACHE,ABD PAIN [id number] 12/20/2016 09:31:00 03/20/2017 00:01:00 DIS Outpatient VIRY MORAN [facility] ONC [id number] 03/01/2017 08:42:00 03/01/2017 23:59:59 CLS Outpatient ANTONINO WALLER STORE TEAM MEMBER [facility] RAD N64.52 BLOODY DISCHARGE FROM R NIPPLE [id number] 11/20/2016 16:08:00 11/20/2016 17:58:00 DIS Emergency ALMA SAHU, EDWIN Carvajal [facility] ER COUGH/BACK PAIN [id number] 07/19/2016 09:09:00 10/17/2016 00:01:00 DIS Outpatient VIRY MORAN [facility] ONC [id number] 06/21/2016 13:05:00 06/21/2016 23:59:59 CLS Outpatient MAUDE NG [employer] 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 [facility] RAD ABNORMAL MAMMO [id number] 03/15/2016 08:55:00 03/15/2016 23:59:59 CLS Outpatient VIRY MORAN [facility] ONC [id number] 01/03/2016 13:34:00 01/03/2016 14:45:00 DIS Emergency JAYSON SAHU, JORGE LUIS Matute [facility] ER LEFT HAND INJURY [id number] 12/22/2015 13:21:00 12/22/2015 23:59:59 CLS Outpatient MAUDE NG 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 [facility] ONC [id number] 10/25/2015 09:32:00 10/25/2015 12:15:00 DIS Outpatient CHITO HERNANDEZ MD [facility] SDC SCREENING [id number] 10/21/2015 06:12:00 10/21/2015 12:31:00 DIS Outpatient CHITO HERNANDEZ MD [facility] PREOP SCREENING [id number] 09/16/2015 09:27:00 09/16/2015 23:59:59 CLS Outpatient MAUDE NGP [facility] ONC [id number] 06/14/2015 13:45:00 06/14/2015 23:59:59 CLS Outpatient DELLA MCGEE 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 [facility] RAD RT AXILLARY KNOT [id number] 03/18/2015 12:42:00 05/05/2015 00:01:00 DIS Outpatient VIRY MORAN [facility] ONC [id number] 09/05/2014 10:01:00 09/05/2014 12:42:00 DIS Emergency 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 APRN [facility] ER LEG SWELLING [id number] 07/22/2014 13:16:00 07/22/2014 23:59:59 CLS Outpatient MAUDE NG [employer]ANCE [employer] 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 [facility] RAD ABNORMAL MAMMO [id number] 07/15/2014 10:28:00 07/15/2014 23:59:59 CLS Outpatient MAUDE NG [employer]ANCE [employer] 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 [facility] RAD SCREENING [id number] 07/08/2014 09:25:00 07/08/2014 23:59:59 CLS Outpatient MAUDE NG N[employer]ISANCE [employer] 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 [facility] ONC [id number] 04/08/2014 09:04:00 07/07/2014 00:01:00 DIS Outpatient VIRY MORAN [facility] ONC [id number] 04/08/2014 10:11:00 04/08/2014 23:59:59 CLS Outpatient VIRY MORAN [facility] RAD LEFT L/E PAIN AND SWELLING [id number] 11/19/2013 10:00:00 11/19/2013 23:59:59 CLS Outpatient MAUDE NG [employer]ISANCE 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 [facility] ONC [id number] 10/01/2013 12:28:00 10/01/2013 14:10:00 DIS Emergency 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 APRN [facility] ER BACK PAIN [id number] 06/19/2013 09:12:00 09/17/2013 00:01:00 DIS Outpatient [id number] 08/27/2013 12:11:00 08/27/2013 14:51:00 DIS Emergency JAMIE GAMBLE DO [facility] ER [id number] 08/19/2013 13:43:00 08/19/2013 23:59:59 CLS Outpatient [id number] 03/20/2013 12:45:00 03/20/2013 23:59:59 CLS Outpatient MAUDE NG [employer]ISANCE 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 [facility] ONC [id number] 12/26/2012 13:21:00 03/11/2013 00:01:00 DIS Outpatient VIRY MORAN [facility] ONC [id number] 12/18/2012 07:59:00 12/18/2012 23:59:59 CLS Outpatient VIRY MORAN [facility] RAD CLL [id number] 01/07/2019 22:31:00 Document Registration [id number] 04/04/2016 10:34:00 Document Registration [id number] 04/04/2016 10:34:00 Document Registration [id number] 10/30/2014 14:04:00 Document Registration [id number] 10/14/2014 09:41:00 Document Registration [id number] 02/15/2014 19:45:00 Document Registration [id number] 07/09/2012 10:29:00 Document Registration [id number] 07/10/2011 12:49:00 Document Registration [id number] 05/26/2011 12:31:00 Document Registration [id number] 05/23/2011 23:45:00 Document Registration [id number] 10/06/2010 13:20:00 Document Registration [id number] 10/14/2014 10:54:00 10/14/2014 23:59:59 CLS Outpatient CATALINO PEREZ DO [id number] 07/08/2014 13:33:00 07/08/2014 23:59:59 CLS Outpatient CATALINO PEREZ DO [id number] 07/08/2014 13:33:00 07/08/2014 23:59:59 CLS Outpatient MADL STORE TEAM MEMBER, DELLA L [id number] 04/08/2014 13:02:00 04/08/2014 23:59:59 CLS Outpatient MADL STORE TEAM MEMBER, DELLA L [id number] 04/08/2014 13:02:00 04/08/2014 23:59:59 CLS Outpatient MADL STORE TEAM MEMBER, DELLA L [id number] 01/07/2014 14:50:00 01/07/2014 23:59:59 CLS Outpatient MADL STORE TEAM MEMBER, DELLA L [id number] 01/07/2014 14:50:00 01/07/2014 23:59:59 CLS Outpatient MADL STORE TEAM MEMBER, DELLA L [id number] 12/23/2013 14:44:00 12/23/2013 23:59:59 CLS Outpatient TIN OCASIO MD [id number] 11/24/2013 09:00:00 11/24/2013 23:59:59 CLS Outpatient CATALINO PEREZ DO [id number] 09/11/2013 09:49:00 09/11/2013 23:59:59 CLS Outpatient DANIEL CRISTINA MD [id number] 05/07/2013 16:19:00 05/07/2013 23:59:59 CLS Outpatient DANIEL CRISTINA MD [id number] 10/16/2012 09:04:00 10/16/2012 23:59:59 CLS Outpatient DANIEL CRISTINA MD [id number] 09/02/2012 18:28:00 09/02/2012 23:59:59 CLS Outpatient CATALINO PEREZ DO [id number] 07/03/2012 08:01:00 07/03/2012 23:59:59 [place] [id number] 07/03/2012 08:01:00 07/03/2012 23:59:59 CLS Outpatient [id number] 01/23/2013 10:45:00 Document Registration [id number] 12/25/2012 15:29:00 Document Registration [id number] 11/28/2012 13:45:00 Document Registration [id number] 11/19/2012 14:35:00 Document Registration [id number] 11/13/2012 09:51:00 Document Registration
--- NOTE | 2019-01-08 06:41 | Diagnostic Imaging Report ---
PROCEDURE: CT lumbar spine without contrast. TECHNIQUE: Multiple contiguous axial images were obtained through the lumbar spine without the use of intravenous contrast. Sagittal and coronal reformations were then performed. Auto Exposure Controls were utilized during the CT exam to meet ALARA standards for radiation dose reduction. INDICATION: Back pain. COMPARISON: CT abdomen and pelvis without contrast 01/07/2019. FINDINGS: There are 5 lumbar type vertebral bodies. Normal alignment. Vertebral body heights are preserved. No fractures. Moderate degenerative endplate changes. No high-grade spinal canal narrowing is evident on this noncontrast exam. Moderate bilateral neural foraminal narrowing at L5-S1. Advanced atherosclerotic calcifications. IMPRESSION: No acute CT findings in the lumbar spine. Moderate spondylotic changes. Dictated by: Dictated on workstation # [id number]
== END 2019-01-07 23:00 | disposition home or self-care (01) ==
LOC: EDUNIT# 21:09 → ER 21:10
DX: M54.42 Lumbago with sciatica, left side (principal); M47.817 Spondylosis without myelopathy or radiculopathy, lumbosacral region; E78.00 Pure hypercholesterolemia, unspecified; I10 Essential (primary) hypertension; K21.9 Gastro-esophageal reflux disease without esophagitis; E11.9 Type 2 diabetes mellitus without complications; Z85.3 Personal history of malignant neoplasm of breast; Z85.6 Personal history of leukemia; Z86.73 Personal history of transient ischemic attack (TIA), and cerebral infarction without residual deficits; Z88.8 Allergy status to other drugs, medicaments and biological substances; Z79.82 Long term (current) use of aspirin; Z82.49 Family history of ischemic heart disease and other diseases of the circulatory system; Z79.02 Long term (current) use of antithrombotics/antiplatelets; Z79.4 Long term (current) use of insulin; Z90.49 Acquired absence of other specified parts of digestive tract; Z90.11 Acquired absence of right breast and nipple; Z98.51 Tubal ligation status; Z98.890 Other specified postprocedural states
CPT/HCPCS: 36415; 51701; 72131; 74176; 80053; 81000; 82150; 83690; 83735; 85007; 85027; 85610; 85730; 96374; 96375

== ENCOUNTER 2019-03-06 09:29 | Outpatient (RCR) | payer MEDICARE ==
[~2019-03-06 09:29] MED LIST changes: +METH500T PO; +TRAM-42 PO
[2019-03-06 09:37] LABS: BASOPHILS # (AUTO) 0.1 10^3/uL (0.0-0.1); BASOPHILS % (AUTO) 0 % (0-10); EOSINOPHILS # (AUTO) 0.2 10^3/uL (0.0-0.3); EOSINOPHILS % (AUTO) 1 % (0-10); HEMATOCRIT 41 % (35-52); HEMOGLOBIN 12.9 G/DL (11.5-16.0); LYMPHOCYTES # (AUTO) 11.6 X 10^3 (1.0-4.0); LYMPHOCYTES % (AUTO) 74 % (12-44); MEAN CORPUSCULAR HEMOGLOBIN 30 PG (25-34); MEAN CORPUSCULAR HGB CONC 32 G/DL (32-36); MEAN CORPUSCULAR VOLUME 94 FL (80-99); MEAN PLATELET VOLUME 11.4 FL (7.4-10.4); MONOCYTES # (AUTO) 0.5 X 10^3 (0.0-1.0); MONOCYTES % (AUTO) 3 % (0-12); NEUTROPHILS # (AUTO) 3.5 X 10^3 (1.8-7.8); NEUTROPHILS % (AUTO) 22 % (42-75); PLATELET COUNT 188 10^3/uL (130-400); RED CELL DISTRIBUTION WIDTH 14.9 % (10.0-14.5); WHITE BLOOD COUNT 15.8 10^3/uL (4.3-11.0)
[2019-03-06 09:56] LABS: ALBUMIN 4.2 GM/DL (3.2-4.5); BILIRUBIN,TOTAL 0.4 MG/DL (0.1-1.0); CALCIUM 9.7 MG/DL (8.5-10.1); TOTAL PROTEIN 6.6 GM/DL (6.4-8.2)
== END 2019-06-04 | disposition home or self-care (01) ==
LOC: ONC 09:29
PROVIDERS: ATTEND Internal Medicine Hematology & Oncology
DX: C91.10 Chronic lymphocytic leukemia of B-cell type not having achieved remission (principal); E11.9 Type 2 diabetes mellitus without complications; I10 Essential (primary) hypertension; Z79.4 Long term (current) use of insulin; Z79.899 Other long term (current) drug therapy
CPT/HCPCS: 36415; 80053; 83615; 85025; 99213

== ENCOUNTER → 2019-03-31 | Outpatient (CLI) | payer MEDICARE ==
--- NOTE | 2019-03-31 22:31 | Diagnostic Imaging Report ---
INDICATION: Screening. The current study was also evaluated with a Computer Aided Detection (CAD) system. 3-D Tomographic imaging was also performed. Comparison is made with prior examination 03/04/2018, 07/01/2016 and 06/14/2015. FINDINGS: There are scattered fibroglandular densities in left breast. There are a few benign-type calcifications. There is no dominant mass, spiculated lesion or suspicious calcification identified. The skin, nipples and axillae are unremarkable. IMPRESSION: ACR BI-RADS Category 2: Benign findings. Result letter will be mailed to the patient. Note: At least 10% of breast cancer is not imaged by mammography. Dictated by: Dictated on workstation # [id number]
== END ==
LOC: RAD 09:53
PROVIDERS: ATTEND Nurse Practitioner Adult Health
DX: Z12.31 Encounter for screening mammogram for malignant neoplasm of breast (principal); Z85.3 Personal history of malignant neoplasm of breast; Z90.11 Acquired absence of right breast and nipple

== ENCOUNTER → 2019-08-19 | Outpatient (CLI) | payer MEDICARE ==
[~2019-08-19] MED LIST changes: -GLIM2TAB PO; +GLIM2TAB2 PO; -METO-387 PO; +MTP25TSR PO; -TRAM50TA2 PO
--- NOTE | 2019-08-19 15:06 | Diagnostic Imaging Report ---
PROCEDURE: US non-OB pelvis comp/trans. TECHNIQUE: Multiple realtime grayscale images were obtained of the pelvis in various projections endovaginally. Transabdominal imaging was also performed. INDICATION: Acute pelvic pain. FINDINGS: The uterus is anteverted measuring 7.7 x 3.7 x 5.8 cm. Endometrium is 8 mm in thickness. No myometrial mass is detected. There are cervical nabothian cysts. The right ovary measures 2.6 x 1.1 x 2.5 cm, and the left ovary measures 2.9 x 1.5 x 1.8 cm. No adnexal mass or free fluid is seen. There is blood flow to the ovaries. IMPRESSION: Mildly thickened endometrium of 8 mm for the patient's age. No other significant abnormality is detected. Dictated by: Dictated on workstation # [id number]
== END ==
LOC: RAD 12:46
PROVIDERS: ATTEND Obstetrics & Gynecology
DX: R10.2 Pelvic and perineal pain (principal); R93.89 Abnormal findings on diagnostic imaging of other specified body structures
CPT/HCPCS: 76830; 76856

== ENCOUNTER 2019-08-26 09:01 | Outpatient (RCR) | payer MEDICARE ==
[2019-06-05 08:52] LABS: BASOPHILS # (AUTO) 0.1 10^3/uL (0.0-0.1); BASOPHILS % (AUTO) 0 % (0-10); EOSINOPHILS # (AUTO) 0.1 10^3/uL (0.0-0.3); EOSINOPHILS % (AUTO) 1 % (0-10); HEMATOCRIT 41 % (35-52); HEMOGLOBIN 13.1 G/DL (11.5-16.0); LYMPHOCYTES # (AUTO) 10.8 X 10^3 (1.0-4.0); LYMPHOCYTES % (AUTO) 69 % (12-44); MEAN CORPUSCULAR HEMOGLOBIN 31 PG (25-34); MEAN CORPUSCULAR HGB CONC 32 G/DL (32-36); MEAN CORPUSCULAR VOLUME 97 FL (80-99); MEAN PLATELET VOLUME 11.5 FL (7.4-10.4); MONOCYTES # (AUTO) 0.4 X 10^3 (0.0-1.0); MONOCYTES % (AUTO) 3 % (0-12); NEUTROPHILS # (AUTO) 4.3 X 10^3 (1.8-7.8); NEUTROPHILS % (AUTO) 28 % (42-75); PLATELET COUNT 214 10^3/uL (130-400); WHITE BLOOD COUNT 15.7 10^3/uL (4.3-11.0)
[2019-06-05 09:19] LABS: ALANINE AMINOTRANSFERASE 34 U/L (0-55); ALBUMIN 4.2 GM/DL (3.2-4.5); ALKALINE PHOSPHATASE 87 U/L (40-136); BILIRUBIN,TOTAL 0.6 MG/DL (0.1-1.0); BUN/CREATININE RATIO 19; CALCIUM 10.1 MG/DL (8.5-10.1); CARBON DIOXIDE 26 MMOL/L (21-32); CHLORIDE 106 MMOL/L (98-107); GFR ESTIMATED > 60; GLUCOSE 150 MG/DL (70-105); SODIUM 145 MMOL/L (135-145); TOTAL PROTEIN 7.3 GM/DL (6.4-8.2)
[2019-06-05 12:22] LABS: BILIRUBIN,URINE NEGATIVE (NEGATIVE); CLARITY,URINE CLEAR; COLOR,URINE YELLOW; GLUCOSE, URINE (UA) 4+ (NEGATIVE); KETONES,URINE NEGATIVE (NEGATIVE); LEUKOCYTE ESTERASE ,URINE NEGATIVE (NEGATIVE); NITRITE,URINE NEGATIVE (NEGATIVE); PH,URINE 5 (5-9); PROTEIN,URINE NEGATIVE (NEGATIVE)
[2019-06-05 12:29] LABS: BACTERIA,URINE TRACE /HPF; WBC,URINE 0-2 /HPF
[2019-06-10 11:36] LABS: BILIRUBIN,URINE NEGATIVE (NEGATIVE); CLARITY,URINE CLEAR; COLOR,URINE YELLOW; GLUCOSE, URINE (UA) 4+ (NEGATIVE); KETONES,URINE NEGATIVE (NEGATIVE); LEUKOCYTE ESTERASE ,URINE NEGATIVE (NEGATIVE); NITRITE,URINE NEGATIVE (NEGATIVE); PH,URINE 5 (5-9); PROTEIN,URINE NEGATIVE (NEGATIVE)
[2019-06-10 11:48] LABS: BACTERIA,URINE TRACE /HPF
[2019-08-26 09:15] LABS: BASOPHILS # (AUTO) 0.1 10^3/uL (0.0-0.1); BASOPHILS % (AUTO) 0 % (0-10); EOSINOPHILS # (AUTO) 0.2 10^3/uL (0.0-0.3); EOSINOPHILS % (AUTO) 1 % (0-10); HEMATOCRIT 42 % (35-52); HEMOGLOBIN 13.3 G/DL (11.5-16.0); LYMPHOCYTES # (AUTO) 13.5 X 10^3 (1.0-4.0); LYMPHOCYTES % (AUTO) 76 % (12-44); MEAN CORPUSCULAR HEMOGLOBIN 30 PG (25-34); MEAN CORPUSCULAR HGB CONC 32 G/DL (32-36); MEAN CORPUSCULAR VOLUME 95 FL (80-99); MEAN PLATELET VOLUME 11.2 FL (7.4-10.4); MONOCYTES # (AUTO) 0.5 X 10^3 (0.0-1.0); MONOCYTES % (AUTO) 3 % (0-12); NEUTROPHILS # (AUTO) 3.6 X 10^3 (1.8-7.8); NEUTROPHILS % (AUTO) 20 % (42-75); PLATELET COUNT 207 10^3/uL (130-400); RED CELL DISTRIBUTION WIDTH 14.4 % (10.0-14.5); WHITE BLOOD COUNT 17.9 10^3/uL (4.3-11.0)
[2019-08-26 09:43] LABS: ALBUMIN 4.5 GM/DL (3.2-4.5); BILIRUBIN,TOTAL 0.6 MG/DL (0.1-1.0); CALCIUM 9.7 MG/DL (8.5-10.1); CREATININE SERUM 1.05 MG/DL (0.60-1.30); POTASSIUM 4.2 MMOL/L (3.6-5.0); TOTAL PROTEIN 7.1 GM/DL (6.4-8.2)
[2019-08-28] MEDS ORDERED: DOCU-143 PO (14:09)
[2019-08-28] MEDS ORDERED: LETR2.5T5 PO (14:09)
[2019-08-28] MEDS ORDERED: LIRA0.6P SQ (14:09)
[2019-09-01] MEDS ORDERED: inSUlin (REGULAR) HUMAN 1 UNIT/0.01 ML (CHARGE PER UNIT) ONE (07:03)
[2019-09-01] MEDS ORDERED: HYDR-34 PO (07:25)
[2019-09-01] MEDS ORDERED: IBUP-1773 PO (07:25)
[2019-09-01] MEDS ORDERED: DOCU-143 PO (07:26)
[2019-09-01] MEDS ORDERED: SIME80TA16 PO (07:37)
[2019-09-04] MEDS ORDERED: LIRA0.6P3 SC (09:02)
[2019-09-04] MEDS ORDERED: CLOP75TA28 PO (09:02)
[2019-09-04] MEDS ORDERED: CEPH-507 PO (12:51)
== END 2019-09-03 | disposition home or self-care (01) ==
LOC: ONC 09:01
PROVIDERS: ATTEND Internal Medicine Hematology & Oncology
DX: C91.10 Chronic lymphocytic leukemia of B-cell type not having achieved remission (principal); E11.9 Type 2 diabetes mellitus without complications; I10 Essential (primary) hypertension; Z79.4 Long term (current) use of insulin; Z79.899 Other long term (current) drug therapy
CPT/HCPCS: 36415; 80053; 81000; 83615; 85025; 99213

== ENCOUNTER 2019-08-28 13:57 | Outpatient (CLI) | payer MEDICARE ==
[~2019-08-28] VITALS: Ht 162 cm; Wt 82.1 kg
[2019-08-28] MEDS ORDERED: DOCU-143 PO (14:09)
[2019-08-28] MEDS ORDERED: LIRA0.6P SQ (14:09)
[2019-08-28] MEDS ORDERED: LETR2.5T5 PO (14:09)
[2019-08-28 14:13] VITALS: BP 112/63
== END 2019-08-28 14:39 | disposition home or self-care (01) ==
LOC: PREOP 13:57
PROVIDERS: ATTEND Obstetrics & Gynecology
DX: Z01.818 Encounter for other preprocedural examination (principal)
CPT/HCPCS: 87081

== ENCOUNTER 2019-09-01 06:00 | Day surgery (SDC) | payer MEDICARE ==
[~2019-09-01] VITALS: Ht 160 cm; Wt 82.1 kg
[2019-09-01] VITALS (12 sets, daily range): BP systolic 113–166; BP diastolic 7–74
[~2019-09-01 06:00] MED LIST changes: +DOCU-143 PO; +LETR2.5T5 PO; +LIRA0.6P SQ
[2019-09-01] MEDS: LACTATED RINGERS 1,000 ML IV PRN ×2 (06:40→07:12)
[2019-09-01] MEDS ORDERED: inSUlin (REGULAR) HUMAN 1 UNIT/0.01 ML (CHARGE PER UNIT) IV STA (06:48)
[2019-09-01] MEDS ORDERED: GLYCOPYRROLATE 0.2 MG/ML (ROBINUL) 2 ML VIAL ONE (06:53)
[2019-09-01] MEDS ORDERED: ROCURONIUM 10 MG/ML 5 ML SYRINGE IV ONE (06:53)
[2019-09-01] MEDS ORDERED: fentaNYL INJECTION 100 MCG/2 ML AMP ONE (06:53)
[2019-09-01] MEDS ORDERED: ONDANSETRON 4 MG/2 ML (SDV) Z0FRAN ONE (06:53)
[2019-09-01] MEDS ORDERED: NEOSTIGMINE 3 MG/3 ML VIAL ONE (06:53)
[2019-09-01] MEDS ORDERED: SEVOFLURANE (ULTANE) 15 ML INHAL SOLN ONE (06:53)
[2019-09-01] MEDS ORDERED: proPOfol 200 MG/20 ML (DIPRIVAN) VIAL IV ONE (06:53)
[2019-09-01] MEDS ORDERED: LIDOCAINE PF 2% 5 ML (XYLOCAINE) VIAL ONE (06:53)
[2019-09-01] MEDS ORDERED: MIDAZOLAM 2 MG/2 ML (VERSED) VIAL ONE (06:53)
[2019-09-01] MEDS ORDERED: BUPIVACAINE 0.25% 30 ML (SENSORCAINE) VIAL ONE (06:54)
[2019-09-01] MEDS ORDERED: metroNIDAZOLE 500MG/100ML IVPB 100 ML IV ONE (07:00)
[2019-09-01] MEDS ORDERED: ceFAZolin 2 GM/50 ML NS 50 ML IV ONE (07:00)
[2019-09-01] MEDS ORDERED: inSUlin (REGULAR) HUMAN 1 UNIT/0.01 ML (CHARGE PER UNIT) IV ONE (07:00)
--- NOTE | 2019-09-01 07:19 | Progress Note-Pre Operative ---
Pre-Operative Progress Note H&P Reviewed The H&P was reviewed, patient examined and no changes noted. Date Seen by Provider: Sep 01, 2019 Time Seen by Provider: 07:15 Date H&P Reviewed: Sep 01, 2019 Time H&P Reviewed: 07:15 Pre-Operative Diagnosis: Complex endometrial hyperplasia with atypia SABIHA ALDANA DO Sep 01, 2019 07:19
[2019-09-01] MEDS ORDERED: IBUP-1773 PO (07:25)
[2019-09-01] MEDS ORDERED: HYDR-34 PO (07:25)
[2019-09-01] MEDS ORDERED: DOCU-143 PO (07:26)
[2019-09-01] MEDS ORDERED: KETOROLAC 30 MG/ML VIAL IV PRN ×2 (07:30→16:30)
[2019-09-01] MEDS ORDERED: ANTACID SUSP 30 ML UDC (MYLANTA) PO PRN (07:30)
[2019-09-01] MEDS ORDERED: DOCUSATE SODIUM 100 MG (COLACE) CAP PO PRN (07:30)
[2019-09-01] MEDS ORDERED: ONDANSETRON 4 MG/2 ML (SDV) Z0FRAN IV PRN (07:30)
[2019-09-01] MEDS ORDERED: CHLORASEPTIC LOZENGE MM PRN (07:30)
[2019-09-01] MEDS ORDERED: ZOLPIDEM 5 MG (AMBIEN) TAB PO PRN (07:30)
[2019-09-01] MEDS ORDERED: SIMETHICONE 80 MG (MYLICON) CHEW PO PRN (07:30)
[2019-09-01] MEDS ORDERED: HYDROcodone/APAP 7.5 MG/325 MG (LORTAB, LORCET PLUS) TABLET PO PRN (07:30)
--- NOTE | 2019-09-01 07:30 | Discharge Inst-Women's Service ---
Discharge Inst-Women's Serv Depart Medication/Instructions Problems Reviewed?: No Consults/Follow Up Additional Follow Up: No Orders/Referrals Dr. Espinoza in 7-10 days and in 8 weeks Activity Activity: Activity as Tolerated Driving Instructions: No Driving for 1 Week NO SMOKING: NO SMOKING Nothing Inside Vagina: No Douching, No Old [place], No Tampons Diet Discharge Diet: No Restrictions Symptoms to Report to : Bleeding Excessive, Pain Increased, Fever Over 101 Degrees F, Vaginal Bleeding Increase, Questions/Concerns For Any Problems or Questions: Contact Your Physician Skin/Wound Care Infection Signs and Symptoms: Increased Redness, Foul Odor of Wound, Increased Drainage, Skin Itchy or Has a Rash, Increased Swelling, Temperature Above 101 F Operative Area Clean and Dry: Keep Incision Clean/Dry Stitches/[place]/Dermabond: Dermabond, Care of Stitches Bathing Instructions: SABIHA Witt DO Sep 01, 2019 07:30
[2019-09-01] MEDS ORDERED: SIME80TA16 PO (07:37)
[2019-09-01] MEDS ORDERED: PHENYLEPHRINE 100 MCG/ML 10 ML (ANESTHESIA) SYR ONE (07:53)
[2019-09-01] MEDS ORDERED: morphine INJ 10 MG/ML 1ML (SYR OR VIAL) IVP ONE (09:15)
[2019-09-01] MEDS ORDERED: HYDROmorphone 2 MG/ML VIAL (DILAUDID) IV ONE (09:15)
[2019-09-01] MEDS ORDERED: ONDANSETRON 4 MG/2 ML (SDV) Z0FRAN IVP PRN (09:15)
--- NOTE | 2019-09-01 09:59 | NUR ---
THIS RN GETS AHOLD OF DR ALDANA REGARDING MOTRIN ORDER. PT HAS LISTEN ALLERGY FOR IBUPROFEN. IT IS LISTED THAT THE PT HAS LISTED IBUPROFEN ALLERGY BECAUSE SHE HAS BEEN INSTRUCTED NOT TO TAKE IT DUE TO KIDNEY FUNCTION. DR ALDANA SAYS TO HOLD ORAL MOTRIN FOR NOW AND LETS SEE HOW HER PAIN IS WITH IV TORADOL. NO NEW ORDERS RECEIVED AT THIS TIME.
[2019-09-01] MEDS ORDERED: KETOROLAC 30 MG/ML VIAL ONE ×2 (10:07→16:16)
[2019-09-01] MEDS: LACTATED RINGERS 1,000 ML IV SCH ×2 (10:28→19:29)
[2019-09-01] MEDS ORDERED: HYDROmorphone 2 MG/ML VIAL (DILAUDID) ONE (10:35)
[2019-09-01] MEDS ORDERED: HYDROmorphone 2 MG/ML VIAL (DILAUDID) IV PRN (10:45)
--- NOTE | 2019-09-01 10:55 | NUR ---
1010 PT TO [facility]IA [facility]ED WITH RUTHANN DOMINGO. BEDSIDE REPORT RECEIVED FROM CHAYO BEAVERS AT THIS TIME. PT MOANING UPON ARRIVAL. CHAYO STATES PT HAS BEEN SLEEPING DURING ENTIRE RECOVERY PERIOD AND HAS NOT RECEIVED MEDICATION FOR PAIN. THIS RN HAS AN ORDER FOR IV TORADOL AND ADMINS TO PT AT 1015. VS TAKEN, PHYSICAL ASSESSMENT, ICE PACK APPLIED TO ABDOMEN . TORADOL DOES NOT SEEM TO BE DECREASING PAIN. PT MOANING AND CRYING WITH PAIN AT THIS TIME. PT CALLS DR ALDANA. DR ALDANA IS IN SURGERY, PHONE IS ANSWERED BY FLAMER AFTER LASTING AND PUT ON SPEAKER. THIS RN REPORTS SITUATION, PAIN NOT UNDER CONTROL WITH TORADOL AT THIS TIME. ORDER GIVEN FOR DILAUDID 1MG Q3H PRN PAIN. THIS RN ADMINS DILAUDID AT 1044. PT STATES PAIN IS DECREASING AT 1050, IS NO LONGER CRYING, OCCASIONAL MOAN. O2 SAT 89% ROOM AIR. THIS RN PLACES PT ON 3L O2 PER NASAL CANULA. O2 SAT UP TO 98% ON 3L O2 AT 1055. FAMILY REMAINS AT BEDSIDE. PULSE OX REMAINS ON PT. CALL LIGHT ALSO WITHIN REACH. MOUTH SPONGE GIVEN TO MOISTEN LIPS/MOUTH PER FAMILY REQUEST.
--- NOTE | 2019-09-01 12:30 | NUR ---
REPORT GIVEN TO DIYA BEAVERS AT THIS TIME.
--- NOTE | 2019-09-01 13:10 | NUR ---
Jefferson catheter removed at this time, pt tolerates procedure well. Addendum: 09/01/19 at 1446 by DIYA WORKMAN RN Spo2 99% on 1L. Nasal cannula removed at this time, Spo2 remains 95% and above at this time. Will continue to monitor.
--- NOTE | 2019-09-01 13:32 | NUR ---
Dr Espinoza called for orders for accuchecks and insulin.
--- NOTE | 2019-09-01 14:06 | OPERATIVE REPORT ---
DATE OF SERVICE: PREOPERATIVE DIAGNOSES: 1. A 69-year-old female with postmenopausal bleeding. 2. Complex endometrial hyperplasia with atypia. POSTOPERATIVE DIAGNOSES: 1. A 69-year-old female with postmenopausal bleeding. 2. Complex endometrial hyperplasia with atypia. PROCEDURE: Robotic-assisted total laparoscopic hysterectomy with bilateral salpingo-oophorectomy. SURGEON: Hernan Aldana DO DIRECTOR OF DEVELOPMENT AND MARKETING: Shanel Rodriguez DNP, who was necessary for retraction and vital manipulation throughout the procedure. ANESTHESIA: General endotracheal. ESTIMATED BLOOD LOSS: Minimal. URINE OUTPUT: 100 mL clear at the end of the procedure. FLUIDS: 1200 mL lactated Ringer's solution. FINDINGS: A grossly normal-appearing, age-appropriate uterus with normal-appearing bilateral ovaries and fallopian tubes and atrophic-appearing vagina, which was age appropriate as well. SPECIMEN SENT: Uterus, bilateral fallopian tubes, and ovaries. INDICATIONS FOR PROCEDURE: This 69-year-old female is a patient who is consulted to my office after a finding of complex endometrial hyperplasia with atypia. I discussed with the patient proceeding with a hysterectomy at a [facility] facility; however, the patient was wishing to have the procedure done here. We discussed that there is any type of invasion greater than 50% of the myometrium that she would require subsequent lymph node staging procedure. The patient was understandable of this and still wished to proceed here. Risks of the procedure itself was discussed with the patient in detail including risk of bleeding, infection, damage to surrounding structures including, but not limited to bowel, bladder, ureter, kidneys, possible need for reoperation, possible postoperative complications, which could occur up to and including . I discussed with the patient in detail, recovery time frame involved in this procedure as well. After all of her questions were answered, consent was obtained in the preoperative area and the patient was taken to the operating room. OPERATIVE IN DETAIL: Once in the operating room, anesthesia was found to be adequate, placed in dorsal lithotomy position, prepped and draped in normal sterile fashion. A timeout was performed. A Jefferson catheter was placed using sterile technique. A weighted speculum was inserted in the patient's vagina. Right angle retractor was used to visualize the cervix, which was grasped at 12 o'clock position using a long Allis clamp. I then placed an 0 Vicryl suture through the anterior lip of the cervix and then removed the Allis clamp. I gently sound the uterine cavity, depth was found to be 8 cm. I selected an 8 cm Sofia uterine manipulator tip and a 3.5 cm colpotomy ring. The manipulator tip was advanced into the uterine endometrium and balloon was deployed there. The colpotomy ring was advanced around the vaginal fornix, after which all other instruments were removed from the patient's vagina. I then performed a change of gloves obtained my attention to the abdomen where infraumbilically I infiltrated this area using 0.25% Marcaine. I making 8 mm incision with a knife and directed Veress needle was inserted through the incision until intraperitoneal placement was confirmed using saline drop test. An opening pressure of 4 mmHg was noted. I proceeded to max pressure of 15 mmHg, at which point I removed the Veress needle. I introduced an 8 mm blunt da Violette camera trocar. Once this was in place, I am able to confirm intraperitoneal placement using da Violette laparoscope. There was no evidence of damage upon entry site. The brief scan of the upper abdominal anatomy appears normal, then the patient placed in steep Trendelenburg. I then placed the two lateral trocars using both 8 to 10 cm lateral to my infraumbilical trocar. The skin was infiltrated using 0.25% Marcaine. An 8 mm incisions were made and the trocars were placed under direct visualization and laparoscope. Once these trocars were in place, I bring in the da Violette robot and docked in appropriate fashion, placing the da Violette vessel sealer in the left hand and monopolar dwight in the right hand of the robot. I then took my place at the operative console, where I performed the following dissection bilaterally using the da Violette robot. Starting at the infundibulopelvic ligament, I then grasped with a vessel sealer, bipolar cauterized and transected using the vessel sealer. I then grasped the round ligament, I bipolar cauterized and transected using the vessel sealer. I then grasped the entire broad ligament, which I am able to bipolar cauterize and transect using vessel sealer. I took this down to the lower uterine segment, at which point I the anterior and posterior leaflets of the broad ligament. The anterior leaflet segment was taken around the anterior vaginal fornix and the posterior leaflet segment was taken around to the posterior vaginal fornix. This allows me to skeletonize the uterine vessels laterally and bring the ureters lateral to my dissection plane and away from my dissection plane. I then grasped the uterine vessels, which I then bipolar cauterized and transected using the vessel sealer. I created a colpotomy at 12 o'clock position using monopolar dwight and took this colpotomy circumferentially around the vaginal fornix amputating the cervix away from the vagina. The entire specimen was then removed through the vagina. I then closed the lateral vaginal apices of the vaginal cuff using 2-0 Vicryl suture in a [id number] fashion colposuspending them to the uterosacral ligaments. I then closed the remainder of the vaginal cuff using 2-0 V-Loc in a running fashion, after which there was no active bleeding noted from any of my dissection planes. I then undocked the da Violette robot and proceeded with remainder of the case laparoscopically. I copiously irrigated the pelvis using normal saline. Once again, there was no active bleeding noted from any of my dissection planes. I placed Surgiflo hemostatic agent over all my planes of dissection to ensure excellent postoperative hemostasis, after which I had the patient taken out of steep Trendelenburg, I removed the lateral trocars under direct visualization of the laparoscope and infraumbilical trocars left in place to release insufflation and introduced 10 mL of 0.25% Marcaine into the peritoneal cavity for postoperative pain management. I then removed this trocar as well. The skin was then reapproximated using 4-0 Monocryl in interrupted subcuticular stitches. Dermabond was applied to incision and bandage was placed over the incisions as well. Jefferson catheter was left in place. The patient tolerated the procedure well and sent to recovery area in stable condition. Lap and sponge counts were correct at the end of the procedure. Instrument counts correct as well. Two grams of Ancef and 500 mg of Flagyl given preoperatively for infection prophylaxis. Job ID: [id number] DocumentID: [id number] Dictated Date: 09/01/2019 09:52:19 Senior Corporate Accountant Date: 09/01/2019 14:05:24 Dictated By: HERNAN ALDANA DO
--- NOTE | 2019-09-01 15:08 | Anesthesia-General Post-Op ---
General Patient Condition Mental Status/LOC: Same as Preop Cardiovascular: Satisfactory Nausea/Vomiting: Absent Respiratory: Satisfactory Pain: Controlled Complications: Absent Post Op Complications Complications None Follow Up Care/Instructions Patient Instructions None needed. Anesthesia/Patient Condition Patient Condition Patient is doing well, no complaints, stable vital signs, no apparent adverse anesthesia problems. She is C/O a sore throat from the ETT, which is not uncommon. I explained this to the patient and she understood. ADA DAVID DO Sep 01, 2019 15:08
--- NOTE | 2019-09-01 18:00 | NUR ---
Pt up to bathroom x1 assist. Unable to void at this time. Pericare performed. Pt assisted back to bed without incident.
--- NOTE | 2019-09-01 20:30 | NUR ---
Pt up attempting to void, warm and cold peribottles supplied.
--- NOTE | 2019-09-01 21:00 | NUR ---
50ml clear yellow urine in hat, bladder scanner reports 271ml retained, 2119: updated on scant amt voided and scanner results, orders to replace cerda catheter. 2139: cath placed see int.
[2019-09-01] MEDS: inSUlin ASPART (NovoLOG) 1 UNIT/0.01 ML (CHARGE PER UNIT) SC SCH (21:49)
[2019-09-02] MEDS ORDERED: IBUPROFEN 600 MG (MOTRIN) TAB PO SCH
[2019-09-02 01:30] VITALS: BP 126/68
[2019-09-02] MEDS: LACTATED RINGERS 1,000 ML IV SCH (03:31)
[2019-09-02 06:16] VITALS: BP 129/72
[2019-09-02] MEDS: inSUlin ASPART (NovoLOG) 1 UNIT/0.01 ML (CHARGE PER UNIT) SC SCH (06:27)
[2019-09-02] MEDS ORDERED: BETHANECHOL 10 MG (URECHOLINE) TAB PO ONE (08:00)
--- NOTE | 2019-09-02 08:01 | NUR ---
Dr. Espinoza here. Plan to start urecholine.
[2019-09-02] MEDS ORDERED: BETHANECHOL 10 MG (URECHOLINE) TAB PO NR (08:30)
[2019-09-02 09:10] VITALS: BP 103/58
--- NOTE | 2019-09-02 10:25 | NUR ---
Dr. Espinoza called and notified of blood sugar of 443. notified that pt managing own insulin as instructed per yesterday, but forgot she is also supposed "to take two pills twice a day". When asked about these pills, pt is unable to recall the name or dosage of either. Order rec'd for 12U of insulin and recheck blood sugar in one hour
[2019-09-02] MEDS ORDERED: inSUlin ASPART (NovoLOG) 1 UNIT/0.01 ML (CHARGE PER UNIT) SC NR (10:31)
--- NOTE | 2019-09-02 11:41 | NUR ---
Dr Espinoza notified of repeat blood sugar of 435. Orders for 15U insulin, recheck in an hour.
[2019-09-02] MEDS ORDERED: inSUlin ASPART (NovoLOG) 1 UNIT/0.01 ML (CHARGE PER UNIT) SC ONE (11:45)
[2019-09-02 12:00] VITALS: BP 145/63
--- NOTE | 2019-09-02 12:45 | NUR ---
Dr. Espinoza notified of repeat blood sugar of 369. Orders rec'd to discharge pt with close monitoring of blood sugars, and follow up with PCP next week.
--- NOTE | 2019-09-02 13:58 | NUR ---
Discharge instructions explained to pt with copy provided to pt, along with prescriptions. Urecholine script called in at this time. Pt verbalizes understanding of instructions and signs to verify. Pt encouraged to call PCP and schedule follow up for assistance with better managing blood sugars. Pt verbalizes understanding. pt denies any needs or concerns at this time.
--- NOTE | 2019-09-02 14:00 | NUR ---
Pt ambulates self off unit accompanied by daughter and nursing faculty to private vehicle. All personal belongings with pt. No s/s of distress noted.
== END 2019-09-02 14:00 | disposition home or self-care (01) ==
LOC: SDC 06:00 → WS 09:51 → SDC 09-02 14:00
PROVIDERS: ATTEND Obstetrics & Gynecology
CPT/HCPCS: 82962; 86850; 86900; 86901; 94664

== ENCOUNTER 2019-09-03 12:53 | Observation (INO) | payer MEDICARE ==
[~2019-09-03] VITALS: Ht 160 cm; Wt 85.9 kg
[~2019-09-03 12:53] MED LIST changes: +HYDR-34 PO; +IBUP-1773 PO; +SIME80TA16 PO
--- NOTE | 2019-09-03 13:09 | ED General ---
General Stated Complaint: SOA Source of Information: Patient, Old Records History of Present Illness Date Seen by Provider: Sep 03, 2019 Time Seen by Provider: 12:52 Initial Comments PT ARRIVES VIA POV FROM HOME C/O SHORTNESS OF BREATH STATES SHE GOT UP AND TOOK HER REGULAR MEDICATIONS AND 1 HYDROCODONE AROUND 10:00 AM, THEN AROUND NOON SHE STARTED SHAKING REAL BAD, AND THEN STARTED HAVING SHORTNESS OF BREATH NO CHEST PAIN NO COUGH NO FEVER NO SWELLING IN LEGS /FEET OR PAIN IN CALVES NO PALPITATIONS PT HAD LAPAROSCOPIC HYST/BSO ON Sunday09/01/19 AND WAS DISMISSED YESTERDAY 09/02/19--BY DR. ALDANA. HX OF POST MENOPAUSAL BLEEDING WITH ENDOMETRIAL HYPERPLASIA, PATHOLOGY REPORT PENDING PT DOES NOT HAVE ANY ABDOMINAL PAIN OR GI COMPLAINTS. NO URINARY SYMPTOMS PT STATES SHE IS DIABETIC AND BLOOD SUGAR WAS 127 THIS AM. DENIES HISTORY OF RESPIRATORY OR SIMILAR PROBLEMS STATES SHE HAS HAD RIGHT BREAST CANCER (S/P MASTECTOMY) AND LEUKEMIA IN THE PAST, BUT IS NOT ON ANY CHEMO OR OTHER TREATMENT AT THIS TIME. 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 BAEZ Allergies and Home Medications Allergies Coded Allergies: naproxen (Verified Allergy, Mild, KIDNEY ISSUES, 08/28/19) ibuprofen (Verified Allergy, Unknown, 09/01/19) PT REPORTS INSTRUCTED NOT TO TAKE D/T KIDNEY FUNCTION Home Medications Aspirin 81 Mg Tab.chew, 81 MG PO DAILY, (Reported) Atorvastatin Calcium 40 Mg Tablet, 40 MG PO HS, (Reported) Dapagliflozin Propanediol 10 Mg Tablet, 10 MG PO DAILY, (Reported) Docusate Sodium 100 Mg Capsule, 100 MG PO DAILY, (Reported) Docusate Sodium 100 Mg Capsule, 100 MG PO BID Prescribed by: SABIHA ALDANA on 09/01/19 0726 Glimepiride 2 Mg Tablet, 2 MG PO BID, (Reported) Hydrocodone Bit/Acetaminophen 1 Ea Tablet, 1-2 EA PO Q6H PRN for PAIN-MODERATE Prescribed by: SABIHA ALDANA on 09/01/19 0725 Ibuprofen 600 Mg Tablet, 600 MG PO Q6H Prescribed by: SABIHA ALDANA on 09/01/19 0725 Insulin Detemir 100 Unit/1 Ml Insuln.pen, 80 UNIT SQ DAILY, (Reported) Letrozole 2.5 Mg Tablet, 2.5 MG PO DAILY, (Reported) Liraglutide 0.6 Mg/0.1 Ml Pen.injctr, 0.6 MG SQ DAILY, (Reported) Lisinopril 40 Mg Tablet, 40 MG PO DAILY, (Reported) Metoprolol Succinate 25 Mg Tab.er.24h, 12.5 MG PO BID, (Reported) TAKE 1/2 OF 25MG TAB Simethicone 80 Mg Tab.chew, 40 MG PO TID PRN for INDIGESTION 2ND LINE Prescribed by: SABIHA ALDANA on 09/01/19 0737 Patient Home Medication List Home Medication List Reviewed: Yes Review of Systems Review of Systems Constitutional: No fever; other (LIMITED HISTORIAN ON ARRIVAL) Respiratory: see HPI, short of breath Cardiovascular: No chest pain, No edema, No palpitations, No syncope Gastrointestinal: No abdominal pain, No nausea, No vomiting Genitourinary: no symptoms reported Musculoskeletal: no symptoms reported Skin: no symptoms reported Psychiatric/Neurological: Anxiety Hematologic/Lymphatic: No Symptoms Reported Immunological/Allergic: no symptoms reported Past Tsdkjgx-Xpzevo-Vzswdi Hx Patient Social History Alcohol Use: Denies Use Recreational Drug Use: No Smoking Status: Never a Smoker 2nd Hand Smoke Exposure: No Recent Foreign Travel: No Contact w/Someone Who Travel: No Recent Hopitalizations: Yes (09/01-09/02/19 FOR HYST/BSO) Immunizations Up To Date Tetanus Booster (TDap): Less than 5yrs Date of Pneumonia Vaccine: May 06, 2013 Date of Influenza Vaccine: May 12, 2019 Seasonal Allergies Seasonal Allergies: No Past Medical History Surgeries: Yes (RIGHT MASTECTOMY; HYST/BSO 09/01/19) Breast, Gallbladder, Hysterectomy, Oophorectomy, 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 Respiratory: No Currently Using CPAP: No Currently Using BIPAP: No Cardiac: Yes Coronary Artery Disease, High Cholesterol, Hypertension Neurological: Yes (CVA RIGHT SIDE WEAKNESS) Stroke : No Reproductive Disorders: Yes (D&C 2000 FOR HEAVY MENSTRUAL BLEEDING; HYST/BSO 09/01/19 ) Female Reproductive Disorders: Menstrual 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 Sexually Transmitted Disease: No HIV/AIDS: No Genitourinary: Yes (HX-LABS HAVE IMPROVED; NO DIALYSIS) Renal Failure Gastrointestinal: Yes Gastroesophageal Reflux, Chronic Constipation Musculoskeletal: Yes Arthritis Endocrine: Yes Diabetes, Insulin dep HEENT: No (READING GLASSES) Loss of Vision: Denies Hearing Impairment: Denies Cancer: Yes (B CELL CHRONIC LYMPHOCYTIC LEUKEMIA;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/2018 ) Leukemia, Breast Did You Recieve Any Treatments: Yes (BREAST CANCER 05/2018-S/P R MAST., ORAL "HORMONES" NO IV CHEMO, NO RADIATION) What Type of Treatment Did You: Chemotherapy, Surgical Intervention Psychosocial: No Integumentary: No Blood Disorders: No Adverse Reaction/Blood Tranf: No (N/A) Family Medical History Abdominal aortic aneurysm Alzheimer's disease Arthritis Cardiovascular disease Cataracts Completed stroke Dementia Diabetes mellitus Hypercholesterolemia Hypertension Myocardial infarction Neoplasm Psychosocial problem Thyroid disease PSH: -BTL 1978 -D&C 1999 FOR HEAVY MENTSTURAL BLEEDING -COLONOSCOPY -RIGHT AXILLARY LUMPECTOMY 2015 -RIGHT MASTECTOMY 05/2018 -RA-LAPAROSCOPIC HYST/BSO 09/01/19 FOR POST MENOPAUSAL BLEEDING/ENDOMETRIAL HYPERPLASIA Physical Exam Vital Signs Vital Signs - First Documented 09/03/19 12:53 Temp 35.7 Pulse 95 Resp 20 B/P (MAP) 171/81 (111) Pulse Ox 99 O2 Delivery Room Air Capillary Refill : Height, Weight, BMI Height: 5'4.00" Weight: 190lbs. 8.0oz. 86.669029ds; 32.07 BMI Method:Stated General Appearance: Anxious, Obese, Other (EXTREMELY ANXIOUS, HYPERVENTILATING, "SOBBING"--NO TEARS, NEAR-HYSTERIA, TREMULOUS. TALKING VERY LOUDLY NON-STOP) HEENT: PERRL/EOMI, Other (POOR DENTITION) Respiratory: Normal Breath Sounds, No Accessory Muscle Use, No Respiratory Distress Cardiovascular: Regular Rate, Rhythm, No JVD, No Murmur Gastrointestinal: Normal Bowel Sounds, Non Tender, Soft, Other (SURGICAL SITES CLEAN/DRY/INTACT. 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 Norm as Tested Skin: Normal Color, Warm/Dry Focused Exam Lactate Level 09/03/19 13:40: Lactic Acid Level 4.64*H 09/03/19 15:35: Lactic Acid Level 1.60 Lactic Acid Level Laboratory Tests Test 09/03/19 15:35 Lactic Acid Level 1.60 MMOL/L (0.50-2.00) Progress/Results/Core Measures Suspected Sepsis SIRS Temperature: Pulse: Respiratory Rate: Laboratory Tests 09/03/19 13:05: White Blood Count 20.6H Blood Pressure / Mean: 09/03/19 13:40: Lactic Acid Level 4.64*H 09/03/19 15:35: Lactic Acid Level 1.60 Laboratory Tests 09/03/19 13:05: Creatinine 0.89, INR Comment 1.0, Platelet Count 189, Total Bilirubin 0.6 Results/Orders Lab Results Laboratory Tests Test 09/03/19 13:05 09/03/19 13:10 09/03/19 13:40 09/03/19 13:47 Range/Units White Blood Count 20.6 H 4.3-11.0 10^3/uL Red Blood Count 4.12 L 4.35-5.85 10^6/uL Hemoglobin 12.6 11.5-16.0 G/DL Hematocrit 38 35-52 % Mean Corpuscular Volume 93 80-99 FL Mean Corpuscular Hemoglobin 31 25-34 PG Mean Corpuscular Hemoglobin Concent 33 32-36 G/DL Red Cell Distribution Width 14.3 10.0-14.5 % Platelet Count 189 130-400 10^3/uL Mean Platelet Volume 11.5 H 7.4-10.4 FL Neutrophils (%) (Auto) 22 L 42-75 % Lymphocytes (%) (Auto) 75 H 12-44 % Monocytes (%) (Auto) 2 0-12 % Eosinophils (%) (Auto) 1 0-10 % Basophils (%) (Auto) 0 0-10 % Neutrophils # (Auto) 4.5 1.8-7.8 X 10^3 Lymphocytes # (Auto) 15.5 H 1.0-4.0 X 10^3 Monocytes # (Auto) 0.5 0.0-1.0 X 10^3 Eosinophils # (Auto) 0.2 0.0-0.3 10^3/uL Basophils # (Auto) 0.1 0.0-0.1 10^3/uL Neutrophils % (Manual) 15 % Lymphocytes % (Manual) 79 % Monocytes % (Manual) 4 % Eosinophils % (Manual) 1 % Basophils % (Manual) 0 % Reactive Lymphocytes 1 % Blood Morphology Comment NORMAL Prothrombin Time 13.0 12.2-14.7 SEC INR Comment 1.0 0.8-1.4 Activated Partial Thromboplast Time 29 24-35 SEC Sodium Level 141 135-145 MMOL/L Potassium Level 3.5 L 3.6-5.0 MMOL/L Chloride Level 106 98-107 MMOL/L Carbon Dioxide Level 20 L 21-32 MMOL/L Anion Gap 15 H 5-14 MMOL/L Blood Urea Nitrogen 16 7-18 MG/DL Creatinine 0.89 0.60-1.30 MG/DL Estimat Glomerular Filtration Rate > 60 BUN/Creatinine Ratio 18 Glucose Level 154 H 70-105 MG/DL Calcium Level 9.8 8.5-10.1 MG/DL Corrected Calcium 9.6 8.5-10.1 MG/DL Magnesium Level 1.8 1.6-2.4 MG/DL Total Bilirubin 0.6 0.1-1.0 MG/DL Aspartate Amino Transf (AST/SGOT) 22 5-34 U/L Alanine Aminotransferase (ALT/SGPT) 27 0-55 U/L Alkaline Phosphatase 96 40-136 U/L Total Creatine Kinase 99 29-168 U/L Creatine Kinase MB 2.0 <6.6 NG/ML Myoglobin 47.1 10.0-92.0 NG/ML Troponin I < 0.028 <0.028 NG/ML B-Type Natriuretic Peptide 97.6 <100.0 PG/ML Total Protein 7.2 6.4-8.2 GM/DL Albumin 4.3 3.2-4.5 GM/DL TSH [place] Testing 2.61 0.35-4.94 UIU/ML Glucometer 160 H 70-110 MG/DL Lactic Acid Level 4.64 *H 0.50-2.00 MMOL/L Blood Gas Puncture Site LEFT RADIAL Blood Gas Patient Temperature 35.6 Arterial Blood pH 7.46 H 7.37-7.43 Arterial Blood Partial Pressure CO2 32 L 35-45 MMHG Arterial Blood Partial Pressure O2 75 L 79-93 MMHG Arterial Blood HCO3 23 23-27 MMOL/L Arterial Blood Total CO2 23.7 21.0-31.0 MMOL/L Arterial Blood Oxygen Saturation 96 94-100 % Arterial Blood Base Excess -1.0 -2.5-2.5 MMOL/L Hema Test POSITIVE Blood Gas Ventilator Setting NO Blood Gas Inspired Oxygen N/A Test 09/03/19 14:05 09/03/19 15:35 Range/Units Urine Color YELLOW Urine Clarity CLEAR Urine pH 7.0 5-9 Urine Specific [place] 1.020 1.016-1.022 Urine Protein NEGATIVE NEGATIVE Urine Glucose (UA) 3+ H NEGATIVE Urine Ketones TRACE H NEGATIVE Urine Nitrite NEGATIVE NEGATIVE Urine Bilirubin NEGATIVE NEGATIVE Urine Urobilinogen 0.2 < = 1.0 MG/DL Urine Leukocyte Esterase TRACE H NEGATIVE Urine RBC (Auto) 1+ H NEGATIVE Urine RBC 0-2 /HPF Urine WBC 10-25 H /HPF Urine Squamous Epithelial Cells RARE /HPF Urine Crystals NONE /LPF Urine Bacteria TRACE /HPF Urine Casts NONE /LPF Urine Mucus NEGATIVE /LPF Urine Yeast MODERATE H /HPF Urine Culture Indicated YES Lactic Acid Level 1.60 0.50-2.00 MMOL/L Micro Results Microbiology 09/03/19 Influenza Types A,B Antigen (ARCHANA) - Final, Complete My Orders Orders - JAMIE GAMBLE DO Accucheck Stat ONCE (09/03/19 13:01) Ed Iv/Invasive Line Start (09/03/19 13:01) Ekg Tracing (09/03/19 13:01) Monitor-Rhythm Ecg Trace Only (09/03/19 13:01) Chest 1 View, Ap/Pa Only (09/03/19 13:01) Arterial Blood Gas (09/03/19 13:01) BNP (09/03/19 13:01) Cbc With Automated Diff (09/03/19 13:01) Comprehensive Metabolic Panel (09/03/19 13:01) Creatine Kinase (09/03/19 13:01) Creatine Kinase Mb (09/03/19 13:01) Magnesium (09/03/19 13:01) Protime With Inr (09/03/19 13:01) Partial Thromboplastin Time (09/03/19 13:01) Thyroid Analyzer (09/03/19 13:01) Ua Culture If Indicated (09/03/19 13:01) Influenza A And B Antigens (09/03/19 13:01) Myoglobin Serum (09/03/19 13:01) Troponin I (09/03/19 13:01) Manual Differential (09/03/19 13:05) Lactic Acid Analyzer (09/03/19 13:26) Blood Culture (09/03/19 13:26) Ondansetron Injection (Zofran Injectio (09/03/19 13:45) Straight Cath For Spec.-Adult (09/03/19 13:32) Ondansetron Injection (Zofran Injectio (09/03/19 13:30) Ct Angio Chest W (09/03/19 13:49) Lorazepam Injection (Ativan Injection) (09/03/19 14:00) Iohexol Injection (Omnipaque 350 Mg/Ml 1 (09/03/19 14:15) Received Contrast (Hold Metformin- Contr (09/03/19 14:15) Ns (Ivpb) (Sodium Chloride 0.9% Ivpb Bag (09/03/19 14:15) Ed Iv/Invasive Line Start (09/03/19 14:21) Ns Iv 1000 Ml (Sodium Chloride 0.9%) (09/03/19 14:21) Urine Culture (09/03/19 14:05) Ed Iv/Invasive Line Start (09/03/19 15:32) Vital Signs Adult Sepsis Patie Q15M (09/03/19 15:32) Remove Rings In Anticipation O (09/03/19 15:32) Piperacillin Sodium/Tazobactam (Zosyn Vi (09/03/19 15:45) Enoxaparin Injection (Lovenox Injection) (09/03/19 16:00) Medications Given in ED Current Medications Medications Dose Ordered Sig/Sherrie Route Start Time Stop Time Status Last Admin Dose Admin Iohexol 100 ml ONCE ONCE IV 09/03/19 14:15 09/03/19 14:16 DC 09/03/19 14:53 88 ML Lorazepam 1 mg ONCE ONCE IVP 09/03/19 14:00 09/03/19 14:01 DC 09/03/19 14:22 1 MG Ondansetron HCl 4 mg ONCE ONCE IVP 09/03/19 13:45 09/03/19 13:46 DC 09/03/19 13:40 4 MG Sodium Chloride 100 ml ONCE ONCE IV 09/03/19 14:15 09/03/19 14:16 DC 09/03/19 14:53 80 ML Vital Signs/I&O 09/03/19 09/03/19 12:53 13:55 Temp 35.7 35.7 Pulse 95 95 Resp 20 20 B/P (MAP) 171/81 (111) 171/81 Pulse Ox 99 99 O2 Delivery Room Air Capillary Refill : Progress Note : Progress Note O2 SAT 100% ON ROOM AIR ON ARRIVAL PLACED ON NON-REBREATHER MASK, AND COACHED PT ON SLOWING BREATHING AND TRYING TO CALM AND REASSURE PT PT EVENTUALLY CALMED AND HER SYMPTOMS RESOLVED, BUT STARTED TO BECOME ANXIOUS A GAIN WHEN ADVISED OF NEED FOR CT SCAN--DESCRIBES CLAUSTROPHOBIA. ATIVAN GIVEN WITH IMPROVEMENT IN SYMPTOMS AGAIN PT WAS ABLE TO COMPLETE CT WITHOUT INCIDENT PT FEELS MUCH BETTER AT TIME OF ADMIT VITALS REMAINED STABLE ECG Initial ECG Impression Date: Sep 03, 2019 Initial ECG Rate: 111 Initial ECG Rhythm: S.Tach Diagnostic Imaging Comments CXR--NO ACUTE PROCESS, PER RADIOLOGIST REPORT AT 1333 CT CHEST ANGIOGRAM--NO P.E. OR ACUTE PROCESS, PER RADIOLOGIST REPORT AT 1532 Reviewed: Reviewed by Me Departure Communication (Admissions) 1535--SPOKE WITH DR. ALDANA, WILL ADMIT PT. 1536--SPOKE WITH DR. GARCIA, HERE IN ER. SHE IS HOSPITALIST FOR [facility]. SHE WILL ADMIT PT AND DR. ALDANA TO CONSULT. DR. GARCIA IN TO SEE PT. 1640--DR. ALDANA IN TO SEE PT PT HELD IN ER/DELAY IN TAKING TO THE FLOOR, DUE TO NURSING STAFFING ISSUES ON THE FLOOR Impression Primary Impression: Sepsis Additional Impressions: S/P HYST/BSO ANXIETY WITH HYPERVENTILATION UTI (urinary tract infection) IDDM (insulin dependent diabetes mellitus) Disposition: ADMITTED INPATIENT Condition: Improved Admissions Decision to Admit Reason: Admit from ER (General) Decision to Admit/Date: Sep 03, 2019 Time/Decision to Admit Time: 15:35 Departure-Patient Inst. Referrals: [facility] (PCP/Family) Primary Care Physician JAMIE GAMBLE DO Sep 03, 2019 13:08
[2019-09-03 13:17] LABS: BASOPHILS # (AUTO) 0.1 10^3/uL (0.0-0.1); BASOPHILS % (AUTO) 0 % (0-10); EOSINOPHILS # (AUTO) 0.2 10^3/uL (0.0-0.3); EOSINOPHILS % (AUTO) 1 % (0-10); HEMATOCRIT 38 % (35-52); HEMOGLOBIN 12.6 G/DL (11.5-16.0); LYMPHOCYTES # (AUTO) 15.5 X 10^3 (1.0-4.0); LYMPHOCYTES % (AUTO) 75 % (12-44); MEAN CORPUSCULAR HEMOGLOBIN 31 PG (25-34); MEAN CORPUSCULAR HGB CONC 33 G/DL (32-36); MEAN CORPUSCULAR VOLUME 93 FL (80-99); MEAN PLATELET VOLUME 11.5 FL (7.4-10.4); MONOCYTES # (AUTO) 0.5 X 10^3 (0.0-1.0); MONOCYTES % (AUTO) 2 % (0-12); NEUTROPHILS # (AUTO) 4.5 X 10^3 (1.8-7.8); NEUTROPHILS % (AUTO) 22 % (42-75); PLATELET COUNT 189 10^3/uL (130-400); RED CELL DISTRIBUTION WIDTH 14.3 % (10.0-14.5); WHITE BLOOD COUNT 20.6 10^3/uL (4.3-11.0)
--- NOTE | 2019-09-03 13:25 | Diagnostic Imaging Report ---
INDICATION: Shortness of breath. FINDINGS: The heart size, mediastinal configuration, and pulmonary vascularity are within normal limits. There is no pleural effusion, pneumothorax, or pneumonia. The osseous structures are unremarkable. IMPRESSION: No acute cardiopulmonary abnormality. Dictated by: Dictated on workstation # [id number]
[2019-09-03] MEDS ORDERED: ONDANSETRON 4 MG/2 ML (SDV) Z0FRAN ONE (13:30)
[2019-09-03 13:36] LABS: ALANINE AMINOTRANSFERASE 27 U/L (0-55); ALBUMIN 4.3 GM/DL (3.2-4.5); ALKALINE PHOSPHATASE 96 U/L (40-136); BILIRUBIN,TOTAL 0.6 MG/DL (0.1-1.0); BUN/CREATININE RATIO 18; CALCIUM 9.8 MG/DL (8.5-10.1); CARBON DIOXIDE 20 MMOL/L (21-32); CHLORIDE 106 MMOL/L (98-107); CREATINE KINASE 99 U/L (29-168); CREATININE SERUM 0.89 MG/DL (0.60-1.30); GFR ESTIMATED > 60; GLUCOSE 154 MG/DL (70-105); MAGNESIUM 1.8 MG/DL (1.6-2.4); POTASSIUM 3.5 MMOL/L (3.6-5.0); SODIUM 141 MMOL/L (135-145); TOTAL PROTEIN 7.2 GM/DL (6.4-8.2)
[2019-09-03] MEDS ORDERED: ONDANSETRON 4 MG/2 ML (SDV) Z0FRAN IVP ONE (13:45)
[2019-09-03 13:53] LABS: BASOPHILS % (MANUAL) 0 %; EOSINOPHILS % (MANUAL) 1 %; LYMPHOCYTES % (MANUAL) 79 %; MONOCYTES % (MANUAL) 4 %; NEUTROPHILS % (MANUAL) 15 %; RBC MORPH NORMAL; REACTIVE LYMPHOCYTES 1 %
[2019-09-03 13:56] LABS: ABG OXYGEN SATURATION 96 % (94-100); ABG PCO2 32 MMHG (35-45); ABG PH 7.46 (7.37-7.43); ABG PO2 75 MMHG (79-93); ABG TCO2 23.7 MMOL/L (21.0-31.0)
[2019-09-03 13:56] LABS: TSH (THYROID ANALYZER) 2.61 UIU/ML (0.35-4.94)
[2019-09-03 13:57] LABS: ALLENS TEST POSITIVE; VENTILATOR NO
[2019-09-03 13:58] LABS: PATIENT TEMP 35.6
[2019-09-03] MEDS ORDERED: LORazepam INJ 2 MG/ML (ATIVAN) VIAL IVP ONE (14:00)
[2019-09-03 14:13] LABS: BILIRUBIN,URINE NEGATIVE (NEGATIVE); CLARITY,URINE CLEAR; COLOR,URINE YELLOW; GLUCOSE, URINE (UA) 3+ (NEGATIVE); KETONES,URINE TRACE (NEGATIVE); LEUKOCYTE ESTERASE ,URINE TRACE (NEGATIVE); NITRITE,URINE NEGATIVE (NEGATIVE); PROTEIN,URINE NEGATIVE (NEGATIVE)
[2019-09-03] MEDS ORDERED: HOLD METFORMIN - RECEIVED CONTRAST 20 ML VIAL IV SCH (14:15)
[2019-09-03] MEDS ORDERED: NS 100 ML (IVPB) BAG IV ONE (14:15)
[2019-09-03] MEDS ORDERED: IOHEXOL 350 MG/ML 100 ML (OMNIPAQUE 350) VIAL IV ONE (14:15)
[2019-09-03] MEDS ORDERED: NS IV 1000 ML 1,000 ML IV SCH (14:21)
[2019-09-03 14:23] LABS: BACTERIA,URINE TRACE /HPF; RBC,URINE 0-2 /HPF; SQUAMOUS EPITHELIAL CELL,UR RARE /HPF
[2019-09-03 14:24] LABS: YEAST,URINE MODERATE /HPF
--- NOTE | 2019-09-03 14:41 | NUR ---
PT TO CT DEPT VIA W/C IN STABLE CONDITION
--- NOTE | 2019-09-03 15:30 | Diagnostic Imaging Report ---
PROCEDURE: CT angiography of the chest with contrast. TECHNIQUE: Multiple contiguous axial images were obtained through the chest after uneventful bolus administration of intravenous contrast. 3D reconstructed CTA MIP acquisitions were also performed. Auto Exposure Controls were utilized during the CT exam to meet ALARA standards for radiation dose reduction. DATE: September 03, 2019. COMPARISON: CT chest, abdomen, and pelvis May 14, 2018. INDICATION: 69-year-old female, shortness of breath. History of breast cancer and leukemia. FINDINGS: There is dependent atelectasis in the right and left lower lobes. There is no additional focal airspace consolidation. There is no pulmonary nodule. There is no lung mass. The central airways are patent. There is no pneumothorax. There is no pleural effusion. There is no identified pulmonary embolus. The main pulmonary artery diameter is within normal limits. The heart is not enlarged. There is no pericardial effusion. There are atherosclerotic calcifications present. There are no identified abnormally enlarged mediastinal, hilar, or axillary lymph nodes. There are surgical clips in the region of the right chest and axilla. The patient is status post right mastectomy. The imaged portions of the upper abdomen are unremarkable in appearance. There are multilevel degenerative changes of the spine. There is no identified acute bony abnormality. IMPRESSION: 1. No identified pulmonary embolus or other acute cardiopulmonary abnormality. 2. Status post right mastectomy. 3. No findings to suggest metastatic disease at the level of the chest. 4. No abnormally enlarged lymph nodes on current exam. Dictated by: Dictated on workstation # [id number]
[2019-09-03] MEDS ORDERED: PIPERACILLIN SODIUM/TAZOBACTAM 4.5 GM in NS (IVPB) 100 ML IV ONE (15:45)
[2019-09-03] MEDS ORDERED: ENOXAPARIN 40 MG/0.4 ML (LOVENOX) SYR SC ONE (16:00)
--- NOTE | 2019-09-03 16:45 | Consultation ---
History of Present Illness History of Present Illness Patient Consulted On(sinan/time) 09/03/19 16:40 Date Seen by Provider: Sep 03, 2019 Time Seen by Provider: 16:00 Reason for Visit: Respiratory difficulty History of Present Illness Patient presented to ED this PM for c/o SOB and respiratory difficulty. States she took a hydrocodone and laid down to take a nap, woke up feeling SOB. She is 2 days PO RATLH w/BSO. Allergies and Home Medications Allergies Coded Allergies: naproxen (Verified Allergy, Mild, KIDNEY ISSUES, 08/28/19) ibuprofen (Verified Allergy, Unknown, 09/01/19) PT REPORTS INSTRUCTED NOT TO TAKE D/T KIDNEY FUNCTION Home Medications Aspirin 81 Mg Tab.chew, 81 MG PO DAILY, (Reported) Atorvastatin Calcium 40 Mg Tablet, 40 MG PO HS, (Reported) Dapagliflozin Propanediol 10 Mg Tablet, 10 MG PO DAILY, (Reported) Docusate Sodium 100 Mg Capsule, 100 MG PO DAILY, (Reported) Docusate Sodium 100 Mg Capsule, 100 MG PO BID Prescribed by: SABIHA ALDANA on 09/01/19 0726 Glimepiride 2 Mg Tablet, 2 MG PO BID, (Reported) Hydrocodone Bit/Acetaminophen 1 Ea Tablet, 1-2 EA PO Q6H PRN for PAIN-MODERATE Prescribed by: SABIHA ALDANA on 09/01/19 07 Ibuprofen 600 Mg Tablet, 600 MG PO Q6H Prescribed by: SABIHA ALDANA on 09/01/19 07 Insulin Detemir 100 Unit/1 Ml Insuln.pen, 80 UNIT SQ DAILY, (Reported) Letrozole 2.5 Mg Tablet, 2.5 MG PO DAILY, (Reported) Liraglutide 0.6 Mg/0.1 Ml Pen.injctr, 0.6 MG SQ DAILY, (Reported) Lisinopril 40 Mg Tablet, 40 MG PO DAILY, (Reported) Metoprolol Succinate 25 Mg Tab.er.24h, 12.5 MG PO BID, (Reported) TAKE 1/2 OF 25MG TAB Simethicone 80 Mg Tab.chew, 40 MG PO TID PRN for INDIGESTION 2ND LINE Prescribed by: SABIHA ALDANA on 09/01/19 0737 Patient Home Medication List Home Medication List Reviewed: Yes Past Dohwvgn-Hyanvh-Iafngf Hx Patient Social History Alcohol Use: Denies Use Recreational Drug Use: No Smoking Status: Never a Smoker 2nd Hand Smoke Exposure: No Recent Foreign Travel: No Contact w/Someone Who Travel: No Recent Infectious Disease Expo: No Recent Hopitalizations: Yes (09/01-09/02/19 FOR HYST/BSO) Physical Abuse: No Sexual Abuse: No Mistreated: No Fear: No Immunizations Up To Date Tetanus Booster (TDap): Less than 5yrs Date of Pneumonia Vaccine: May 06, 2013 Date of Influenza Vaccine: May 12, 2019 Seasonal Allergies Seasonal Allergies: No Past Medical History Surgeries: Yes (RIGHT MASTECTOMY; HYST/BSO 09/01/19) Breast, Gallbladder, Hysterectomy (09/01/19), Oophorectomy (09/01/19), 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 Respiratory: No Currently Using CPAP: No Currently Using BIPAP: No Cardiac: Yes Coronary Artery Disease, High Cholesterol, Hypertension Neurological: Yes (CVA RIGHT SIDE WEAKNESS) Stroke : No Reproductive Disorders: Yes (D&C 1999 FOR HEAVY MENSTRUAL BLEEDING; HYST/BSO 09/01/19 ) Female Reproductive 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, 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 Sexually Transmitted Disease: No HIV/AIDS: No Genitourinary: Yes (HX-LABS HAVE IMPROVED; NO DIALYSIS) Renal Failure Gastrointestinal: Yes Gastroesophageal Reflux, Chronic Constipation Musculoskeletal: Yes Arthritis Endocrine: Yes Diabetes, Insulin dep HEENT: No (READING GLASSES) Loss of Vision: Denies Hearing Impairment: Denies Cancer: Yes (B CELL CHRONIC LYMPHOCYTIC LEUKEMIA;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/2018 ) Leukemia, Breast Did You Recieve Any Treatments: Yes (BREAST CANCER 05/2018-S/P R MAST., ORAL "HORMONES" NO IV CHEMO, NO RADIATION) What Type of Treatment Did You: Chemotherapy, Surgical Intervention Psychosocial: No Integumentary: No Blood Disorders: No Adverse Reaction/Blood Tranf: No (N/A) Family Medical History Abdominal aortic aneurysm Alzheimer's disease Arthritis Cardiovascular disease Cataracts Completed stroke Dementia Diabetes mellitus Hypercholesterolemia Hypertension Myocardial infarction Neoplasm Psychosocial problem Thyroid disease PSH: -BTL 1978 -D&C 1999 FOR HEAVY MENTSTURAL BLEEDING -COLONOSCOPY -RIGHT AXILLARY LUMPECTOMY 2015 -RIGHT MASTECTOMY 05/2018 -RA-LAPAROSCOPIC HYST/BSO 09/01/19 FOR POST MENOPAUSAL BLEEDING/ENDOMETRIAL HYPERPLASIA Review of Systems-General Respiratory: see HPI All Other Systems Reviewed Negative Unless Noted: Yes Physical Exam-General Problems Physical Exam Vital Signs Vital Signs - First Documented 09/03/19 12:53 Temp 35.7 Pulse 95 Resp 20 B/P (MAP) 171/81 (111) Pulse Ox 99 O2 Delivery Room Air Capillary Refill : Less Than 3 Seconds General Appearance: no apparent distress Eyes: Bilateral Eye Normal Inspection, Bilateral Eye PERRL Respiratory: no respiratory distress Gastrointestinal: non tender, soft, other (lap sites from RAT clean, dry, intact) Assessment/Plan Assessment/Plan Admission Diagnosis/Plan SOB, SARS Protocol Admission Status: Observation GERTRUDIS UMAÑA APRN Sep 03, 2019 16:45
--- NOTE | 2019-09-03 17:04 | History & Physical-Hospitalist ---
History of Present Illness HPI/Chief Complaint CC: Dyspnea with elevated wbc HPI: This is a 69yoWF clinic patient of [facility] who presented to the ER with dyspnea and hypoxia and elevated wbc with elevated lactic acid. Patient had underwent an uncomplicated Hyst by Dr Espinoza and had been DC in good condition and patient denies any abdominal pain or bleeding. Patient underwent CT angiogram and did not reveal any PE. Patient was placed on Zosyn to treat early UTI and Dr Espinoza has been consulted. Patient does not wear O2 or CPAP at home and has a h/o breast cancer right side in the past. Source: patient, family, RN/MD, old records Date Seen 09/03/19 Time Seen by a Provider: 16:15 Attending Physician Hernan Espinoza DO [facility] Referring Physician Date of Admission Sep 03, 2019 at 15:35 Home Medications & Allergies Home Medications Reviewed patient Home Medication Reconciliation performed by pharmacy medication reconciliations gi technician and/or nursing. Patients Allergies have been reviewed. Allergies Allergies Coded Allergies naproxen (Verified Allergy, Mild, KIDNEY ISSUES, 08/28/19) ibuprofen (Verified Allergy, Unknown, 09/01/19) PT REPORTS INSTRUCTED NOT TO TAKE D/T KIDNEY FUNCTION Past Rqupsoz-Xxhvcg-Gajxcg Hx Past Med/Social Hx: Reviewed Nursing Past Med/Soc Hx, Reviewed and Corrections made Patient Social History Marrital Status: single Employed/Student: retired Alcohol Use: Denies Use Recreational Drug Use: No Smoking Status: Never a Smoker 2nd Hand Smoke Exposure: No Recent Foreign Travel: No Contact w/other who traveled: No Recent Hopitalizations: Yes (09/01-09/02/19 FOR HYST/BSO) Recent Infectious Disease Expo: No Immunizations Up To Date Tetanus Booster (TDap): Less than 5yrs Date of Pneumonia Vaccine: May 06, 2013 Date of Influenza Vaccine: May 12, 2019 Seasonal Allergies Seasonal Allergies: No Past Medical History Surgeries: Breast, Gallbladder, Hysterectomy (09/01/19), Oophorectomy (09/01/19), 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 Currently Using CPAP: No Currently Using BIPAP: No Cardiac: Coronary Artery Disease, High Cholesterol, Hypertension Neurological: Stroke : No Reproductive: Yes (D&C 2000 FOR HEAVY MENSTRUAL BLEEDING; HYST/BSO 09/01/19 ) Sexually Transmitted Disease: No HIV/AIDS: No Female Reproductive Disorders: Menstrual Problems Hysterectomy, 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 Genitourinary: Renal Failure Gastrointestinal: Gastroesophageal Reflux, Chronic Constipation Musculoskeletal: Arthritis Endocrine: Diabetes, Insulin dep Loss of Vision: Denies Hearing Impairment: Denies Cancer: Leukemia, Breast Did You Recieve Any Treatments: Yes (BREAST CANCER 05/2018-S/P R MAST., ORAL "HORMONES" NO IV CHEMO, NO RADIATION) What Type of Treatment Did You: Chemotherapy, Surgical Intervention History of Blood Disorders: No Adverse Reaction to Blood Angelo: No (N/A) Family History Abdominal aortic aneurysm Alzheimer's disease Arthritis Cardiovascular disease Cataracts Completed stroke Dementia Diabetes mellitus Hypercholesterolemia Hypertension Myocardial infarction Neoplasm Psychosocial problem Thyroid disease PSH: -BTL 1978 -D&C 1999 FOR HEAVY MENTSTURAL BLEEDING -COLONOSCOPY -RIGHT AXILLARY LUMPECTOMY 2015 -RIGHT MASTECTOMY 05/2018 -RA-LAPAROSCOPIC HYST/BSO 09/01/19 FOR POST MENOPAUSAL BLEEDING/ENDOMETRIAL HYPERPLASIA Review of Systems Constitutional: see HPI, weakness Respiratory: dyspnea on exertion, short of breath, wheezing Physical Exam Physical Exam Vital Signs Vital Signs - First Documented 09/03/19 12:53 Temp 35.7 Pulse 95 Resp 20 B/P (MAP) 171/81 (111) Pulse Ox 99 O2 Delivery Room Air Capillary Refill : Less Than 3 Seconds Height, Weight, BMI Height: 5'4.00" Weight: 190lbs. 8.0oz. [id number]; 30.00 BMI Method:Stated General Appearance: Anxious, Chronically ill, Mild Distress, Other (pale) Eyes: Right Eye Normal Inspection, Right Eye PERRL HEENT: PERRL/EOMI, Normal ENT Inspection, Pharynx Normal, Moist Mucous M embranes Neck: Full Range of Motion, Normal Inspection, Non Tender Respiratory: Chest Non Tender, No Accessory Muscle Use, No Respiratory Distress, Decreased Breath Sounds, Wheezing Cardiovascular: Regular Rate, Rhythm, No Edema, No Gallop, No JVD, No Murmur, Normal Peripheral Pulses Gastrointestinal: Normal Bowel Sounds, No Organomegaly, No Pulsatile Mass, Non Tender, Soft Back: Normal Inspection, No CVA Tenderness, No Vertebral Tenderness Extremity: Normal Capillary Refill, Normal Inspection, Normal Range of Motion, Non Tender, No Calf Tenderness, No Pedal Edema Neurologic/Psychiatric: Alert, Oriented x3, No Motor/Sensory Deficits, Normal Mood/Affect Skin: Normal Color, Warm/Dry Lymphatic: No Adenopathy Results Results/Procedures Labs Laboratory Tests 09/03/19 13:05 Patient resulted labs reviewed. Assessment/Plan Admission Diagnosis Assessment: Dyspnea Elevated lactic acid Early UTI Leukocytosis s/p Hyst POD # 2 DM Breast cancer right HTN HLP Plan: IVF Zosyn Monitor labs IS Lovenox Admission Status: Observation Diagnosis/Problems Diagnosis/Problems (1) Sepsis Status: Acute (2) S/P vaginal hysterectomy (3) Dyspnea (4) Leukocytosis (5) UTI (urinary tract infection) Status: Acute NAVEEN GARCIA DO Sep 03, 2019 17:04
--- NOTE | 2019-09-03 17:38 | NUR ---
TOOK REPORT FROM BROCH BRAND LEAD.
--- NOTE | 2019-09-03 17:45 | NUR ---
ASHLEY BROCK admitted to room 426-1, with an admitting diagnosis of suspected uti, weakness, and nausea, on 09/03/19 from ed, accompanied by personnel.ASHLEY BROCK introduced to surroundings, call light, bed controls, phone, TV, temperature control, lights, meal times, smoking policy, visitor policy, side rail policy, bathrooms and showers. Patient Rights given to patient in the handbook. ASHLEY BROCK verbalizes understanding that [facility] is not responsible for the loss or damage to any personal effects or valuables that are kept in the patients posession during their hospitalization. The following Patient Care Plans were discussed with the patient: Discharge Planning, infection control,pain, and medications. ASHLEY BROCK verbalizes understanding of Interdisciplinary Patient Education.
[2019-09-03 17:57] VITALS: BP 116/69
[2019-09-03] MEDS ORDERED: 1/2 NS W/KCL 20 MEQ/L 1,000 ML IV SCH (18:00)
[2019-09-03] MEDS ORDERED: LORazepam INJ 2 MG/ML (ATIVAN) VIAL IV PRN (18:00)
[2019-09-03] MEDS ORDERED: ACETAMINOPHEN 500 MG TAB (TYLENOL) PO PRN ×2 (18:00→20:30)
[2019-09-03] MEDS ORDERED: diphenhydrAMINE 25 MG TAB (BENADRYL) PO PRN (20:30)
[2019-09-03] MEDS ORDERED: LOPERAMIDE 2 MG (IMODIUM) TABLET PO PRN (20:30)
[2019-09-03] MEDS ORDERED: CALCIUM CARBONATE 500 MG (TUMS) TAB.CHEW PO PRN (20:30)
[2019-09-03] MEDS ORDERED: ONDANSETRON 4 MG (ZOFRAN) ORAL DISSOLVE TAB PO PRN (20:30)
[2019-09-03] MEDS ORDERED: DOCUSATE SODIUM 100 MG (COLACE) CAP PO PRN (20:30)
[2019-09-03] MEDS ORDERED: HYDROcodone/APAP 5 MG/325 MG (LORTAB) TAB PO PRN (20:30)
[2019-09-03] MEDS ORDERED: MELATONIN 3 MG TABLET PO PRN (20:30)
[2019-09-03] MEDS ORDERED: ALPRAZolam 0.25 MG (XANAX) TAB PO PRN (20:30)
[2019-09-03] MEDS ORDERED: ONDANSETRON 4 MG/2 ML (SDV) Z0FRAN IVP PRN (20:30)
[2019-09-03 20:42] VITALS: BP 131/78
[2019-09-03 20:57] VITALS: BP 116/69
[2019-09-03] MEDS: inSUlin ASPART (NovoLOG) 1 UNIT/0.01 ML (CHARGE PER UNIT) SC SCH (21:23)
--- NOTE | 2019-09-03 21:30 | NUR ---
THIS RN NOTIFIED UPPER LEATHER CUTTER THAT THIS PT NEEDED 1/2NS WITH 10MEQ KCL, WHICH IS A PHARMACY MIXED IV FLUID. UPPER LEATHER CUTTER SAID SHE WOULD CONTACT THE PHARMACIST.
--- NOTE | 2019-09-03 22:30 | NUR ---
COAGULATING DRYING SUPERVISOR NOTIFIED THIS RN THAT THE PHARMACIST SAID TO USE A 10MEQ KCL/50 ML PRE-MIXED BAG AND 1/2NS 1000ML BAG AND RUN THEM CONCURRENTLY FOR THE SAME TIME AND THAT THEY WOULD MIX THE REMAINING BAGS IN THE MORNING.
[2019-09-03] MEDS: SENNA W/DOCUSATE (SENOKOT S) TABLET PO SCH (22:44)
[2019-09-03] MEDS: PIPERACILLIN/TAZO 4.5 GM/NS 100 ML IV SCH ×2 (22:44)
[2019-09-04] VITALS (7 sets, daily range): BP systolic 113–149; BP diastolic 63–83
[2019-09-04] MEDS ORDERED: RT-ALBUTEROL SULF 2.5 MG/3 ML PRE-MIX VIAL INH PRN (00:30)
[2019-09-04] MEDS ORDERED: POTASSIUM CL 10MEQ/50ML IVPB 50 ML IV ONE (02:07)
[2019-09-04] MEDS ORDERED: 1/2 NS IV SOLUTION 1,000 ML IV ONE (02:07)
--- NOTE | 2019-09-04 02:15 | NUR ---
10MEQ KCL/50ML PRE-MIXED BAG OVERRODE IN OMNICELL BY RUTHANN MORRISSEY (PARTS WASHER). THIS RN PROGRAMED PUMP TO ADMINISTER 1/2NS AT 100ML/HR AND 10MEQ KCL/50ML PRE-MIXED BAG AT 5ML/HR CONCURRENTLY.
[2019-09-04] MEDS: POTASSIUM CHLORIDE INJ 10 MEQ in NS IV 1000 ML 1,000 ML IV SCH ×2 (02:19→06:40)
[2019-09-04] MEDS: PIPERACILLIN/TAZO 4.5 GM/NS 100 ML IV SCH ×4 (06:17→13:43)
[2019-09-04] MEDS: inSUlin ASPART (NovoLOG) 1 UNIT/0.01 ML (CHARGE PER UNIT) SC SCH ×3 (06:18→15:53)
[2019-09-04 06:55] LABS: BASOPHILS % (AUTO) 0 % (0-10); EOSINOPHILS # (AUTO) 0.1 10^3/uL (0.0-0.3); EOSINOPHILS % (AUTO) 1 % (0-10); HEMATOCRIT 32 % (35-52); HEMOGLOBIN 10.3 G/DL (11.5-16.0); LYMPHOCYTES # (AUTO) 8.5 X 10^3 (1.0-4.0); LYMPHOCYTES % (AUTO) 70 % (12-44); MEAN CORPUSCULAR HEMOGLOBIN 31 PG (25-34); MEAN CORPUSCULAR HGB CONC 32 G/DL (32-36); MEAN CORPUSCULAR VOLUME 95 FL (80-99); MEAN PLATELET VOLUME 11.8 FL (7.4-10.4); MONOCYTES # (AUTO) 0.2 X 10^3 (0.0-1.0); MONOCYTES % (AUTO) 2 % (0-12); NEUTROPHILS # (AUTO) 3.3 X 10^3 (1.8-7.8); NEUTROPHILS % (AUTO) 27 % (42-75); PLATELET COUNT 163 10^3/uL (130-400); RED CELL DISTRIBUTION WIDTH 14.5 % (10.0-14.5); WHITE BLOOD COUNT 12.2 10^3/uL (4.3-11.0)
[2019-09-04 07:28] LABS: ALANINE AMINOTRANSFERASE 28 U/L (0-55); ALBUMIN 3.4 GM/DL (3.2-4.5); ALKALINE PHOSPHATASE 71 U/L (40-136); BILIRUBIN,TOTAL 0.5 MG/DL (0.1-1.0); BUN/CREATININE RATIO 13; CALCIUM 8.7 MG/DL (8.5-10.1); CARBON DIOXIDE 20 MMOL/L (21-32); CHLORIDE 109 MMOL/L (98-107); CREATININE SERUM 0.79 MG/DL (0.60-1.30); GFR ESTIMATED > 60; GLUCOSE 72 MG/DL (70-105); POTASSIUM 3.8 MMOL/L (3.6-5.0); SODIUM 141 MMOL/L (135-145); TOTAL PROTEIN 5.7 GM/DL (6.4-8.2)
[2019-09-04] MEDS ORDERED: RT-ALBUTEROL SULF 2.5 MG/3 ML PRE-MIX VIAL INH SCH (08:00)
[2019-09-04] MEDS ORDERED: LIRA0.6P3 SC (09:02)
[2019-09-04] MEDS ORDERED: CLOP75TA28 PO (09:02)
--- NOTE | 2019-09-04 09:04 | NUR ---
SPOKE WITH THE PATIENT ABOUT HER MEDICATIONS. SHE HAD A LIST WITH HER. I COMPARED IT WITH THE EXT MED HX. SHE FILLED IBU, HYDROCODONE 7.5, AND BETHANECHOL ON 09-02-19. SHE STATES SHE IS NOT TAKING ANY OF THESE. SHE DOES NOT TAKE THE IBU BECAUSE SHE HAS BEEN TOLD TO STAY AWAY FROM IT. SHE TOOK 1 HYDROCODONE AND FEELS IT MAKES HER HAVE A PANIC ATTACK AND ITCHING SO SHE DOES NOT WANT TO TAKE IT ANYMORE. SHE STATES SHE DOES NOT FEEL SHE NEEDS THE BETHANECHOL. SHE TAKES ASPIRIN 81MG DAILY AND COLACE 100MG DAILY OTC.
[2019-09-04] MEDS: SENNA W/DOCUSATE (SENOKOT S) TABLET PO SCH (09:06)
--- NOTE | 2019-09-04 10:29 | Progress Note - Hospitalist ---
Subjective HPI/CC On Admission Date Seen by Provider: Sep 04, 2019 Time Seen by Provider: 09:30 CC: Dyspnea with elevated wbc HPI: This is a 69yoWF clinic patient of [facility] who presented to the ER with dyspnea and hypoxia and elevated wbc with elevated lactic acid. Patient had underwent an uncomplicated Hyst by Dr Espinoza and had been DC in good condition and patient denies any abdominal pain or bleeding. Patient underwent CT angiogram and did not reveal any PE. Patient was placed on Zosyn to treat early UTI and Dr Espinoza has been consulted. Patient does not wear O2 or CPAP at home and has a h/o breast cancer right side in the past. Subjective/Events-last exam Will initiate PT and OT, she does not appear to be very motivated Will DC telemetry White count down to 12 Lactic acid completely resolved elevation No pain is reported otherwise Daughter is at the bedside Review of Systems General: Fatigue Focused Exam Lactate Level 09/03/19 13:40: Lactic Acid Level 4.64*H 09/03/19 15:35: Lactic Acid Level 1.60 Objective Exam Vital Signs Vital Signs Date Time Temp Pulse Resp B/P (MAP) Pulse Ox O2 Delivery O2 Flow Rate FiO2 09/04/19 15:49 36.8 83 20 134/83 (100) 94 Room Air 09/03/19 20:57 21 Capillary Refill : Less Than 3 SecondsLess Than 3 Seconds General Appearance: No Apparent Distress, WD/WN Respiratory: Lungs Clear Cardiovascular: Regular Rate, Rhythm Neurologic/Psychiatric: Alert, Oriented x3, No Motor/Sensory Deficits, Normal Mood/Affect Results/Procedures Lab Patient resulted labs reviewed. Assessment/Plan Assessment and Plan Assess & Plan/Chief Complaint Assessment: Dyspnea Elevated lactic acid Early UTI Leukocytosis s/p Hyst POD # 3 DM Breast cancer right HTN HLP Plan: DC home Kelfex 500mg QID for [address] Espinoza f/u next week Diagnosis/Problems Diagnosis/Problems (1) Sepsis Status: Acute (2) S/P vaginal hysterectomy (3) Dyspnea (4) Leukocytosis (5) UTI (urinary tract infection) Status: Acute Clinical Quality Measures DVT/VTE Risk/Contraindication: Risk Factor Score Per Nursin RFS Level Per Nursing on Admit: 4+=Very High NAVEEN GARCIA DO Sep 04, 2019 10:29
--- NOTE | 2019-09-04 11:23 | Physical Therapy Evaluation ---
PT Evaluation-General Medical Diagnosis Admission Date Sep 03, 2019 at 15:35 Medical Diagnosis: weakness Onset Date: Sep 03, 2019 Therapy Diagnosis Therapy Diagnosis: impaired mobility, strength, endurance Height/Weight Height (Feet): 5 Height (Inches): 4.00 Weight (Pounds): 190 Weight (Ounces): 8.0 Precautions Precautions/Isolations: Standard Precautions Referral Physician: Megan Morris DO Reason for Referral: Evaluation/Treatment Medical History Additional Medical History Past Medical History Surgeries: Breast, Gallbladder, Hysterectomy (09/01/19), Oophorectomy (09/01/19), 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 Currently Using CPAP: No Currently Using BIPAP: No Cardiac: Coronary Artery Disease, High Cholesterol, Hypertension Neurological: Stroke : No Reproductive: Yes (D&C 2000 FOR HEAVY MENSTRUAL BLEEDING; HYST/BSO 09/01/19 ) Sexually Transmitted Disease: No HIV/AIDS: No Female Reproductive Disorders: Menstrual Problems Hysterectomy, 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 Genitourinary: Renal Failure Gastrointestinal: Gastroesophageal Reflux, Chronic Constipation Musculoskeletal: Arthritis Endocrine: Diabetes, Insulin dep Loss of Vision: Denies Hearing Impairment: Denies Cancer: Leukemia, Breast Did You Recieve Any Treatments: Yes (BREAST CANCER 05/2018-S/P R MAST., ORAL "HORMONES" NO IV CHEMO, NO RADIATION) What Type of Treatment Did You: Chemotherapy, Surgical Intervention History of Blood Disorders: No Adverse Reaction to Blood Angelo: No (N/A) Social History Home: Single Level Current Living Status: Alone Entry Into Home: Stairs With Railing PT Steps Into Home: 3 Prior Prior Level of Function SCALE: Activities may be completed with or without assistive devices. 1-Zqzldpjbwx-zxdhoae completes the activity by him/herself with no assistance from a helper. 5-Set-up or Clean-up Assistance-helper sets up or cleans up; patient completes activity. [place] assists only prior to or following the activity. 4-Supervision or Touching Assistance-helper provides verbal cues and/or touching/steadying and/or contact guard assistance as patient completes activity. Assistance may be provided throughout the activity or intermittently. 3-Partial/Moderate Assistance-helper does LESS THAN HALF the effort. [place] lifts, holds or supports trunk or limbs, but provides less than half the effort. 2-Substantial/Maximal Assistance-helper does MORE THAN HALF the effort. [place] lifts or holds trunk or limbs and provides more than half the effort. 1-Ibolorltt-wxakop does ALL the effort. Patient does none of the effort to complete the activity. Or, the assistance of 2 or more helpers is required for the patient to complete the activity. If activity was not attempted, code reason: 7-Patient Refused. 9-Not Applicable-not attempted and the patient did not perform the activity before the current illness, exacerbation or injury. 10-Not Attempted due to Environmental Limitations-(lack of equipment, weather restraints, etc.). 88-Not Attempted due to Medical Conditions or Safety Concerns. Bed Mobility: 6 Transfers (B,C,W/C): 6 Gait: 6 Stairs: 6 Indoor Mobility (Ambulation): Independent Stairs: Independent PT Evaluation-Current Subjective Patient in bed pre tx, agrees to PT, has just aching in her abdomen per patient report, she says no pain from recent surgery. Pt/Family Goals "to be able to breathe better" Objective Patient Orientation: Person, Place, Situation Attachments: IV ROM/Strength ROM Lower Extremities WNL Strength Lower Extremities 3+/5 gross BLE Neuromuscular (Tone, Coordination, Reflexes) Patient states she has had no recent changes in vision or hearing. Both tracking and peripheral vision seem WNL Sensory Hearing: Functional Sensation Right Lower Extremit: Intact Sensation Left Lower Extremity: Intact Transfers Roll Left to Right (QC): 6 Lying to Sitting/Side of Bed(Q: 3 Sit to Stand (QC): 4 Chair/Jbk-qz-Xtpzl Xfer(QC): 4 cues for positioning Gait Does the Patient Walk?: Yes Mode of Locomotion: Walk Anticipated Mode of Locomotion: Walk Walk 10 feet (QC): 4 Walk 50 ft with 2 Turns(QC): 4 Distance: 100' Gait Assistive Device: FWW Comments/Gait Description Patient ambulates slowly, slumped posture, starts crying during ambulation, when asked what is wrong she says "I don't know". Balance Sitting Static: Normal Sitting Dynamic: Normal Standing Static: Fair Standing Dynamic: Fair Treatment Seated BLE exercises x15 (AP, LAQ). Patient in recliner post tx with nurse call, phone, tray, all needs met. Family in the room. Assessment/Needs Patient fatigues quickly, gets SOB with activity, needs cues for purse lip breathing. Rehab Potential: Fair PT Pharmaceutical Development Technician Goals Pharmaceutical Development Technician Goals PT Prison Goals Time Frame: Sep 11, 2019 Roll Left & Right (QC): 6 Sit to Lying (QC): 6 Lying-Sitting on Side/Bed(QC): 6 Sit to Stand (QC): 4 Chair/Dmx-ek-Xdyse Xfer(QC): 4 Walk 10 feet (QC): 4 Walk 50ft with 2 Turns (QC): 4 PT Plan Problem List Problem List: Activity Tolerance, Functional Strength, Safety, Balance, Gait, Transfer, Bed Mobility Treatment/Plan Treatment Plan: Continue Plan of Care Treatment Plan: Bed Mobility, Education, Functional Activity Steve, Functional Strength, Gait, Safety, Therapeutic Exercise, Transfers Treatment Duration: Sep 11, 2019 Frequency: 6 times per week Estimated Hrs Per Day: .25 hour per day Patient and/or Family Agrees t: Yes Safety Risks/Education Patient Education: Gait Training, Transfer Techniques, Correct Positioning, Safety Issues Teaching Recipient: Patient Teaching Methods: Demonstration, Discussion Response to Teaching: Reinforcement Needed Discharge Recommendations Plan Patient will perform bed mobility and transfer training, balance and endurance training, functional strengthening, stair training, gait training, and education, to improve functional mobility and independence at home. Therapy Discharge Recommendati: Home & Family Time/GCodes Time In: 1055 Time Out: 1115 Total Billed Treatment Time: 20 Total Billed Treatment 1 visit ORLANDO SOLO PT Sep 04, 2019 11:23
--- NOTE | 2019-09-04 11:49 | Occupational Therapy Eval ---
OT Evaluation-General/PLF Medical Diagnosis Admission Date Sep 03, 2019 at 15:35 Medical Diagnosis: weakness Onset Date: Sep 03, 2019 Therapy Diagnosis Therapy Diagnosis: Decreased ADL status. Height/Weight Height (Feet): 5 Height (Inches): 4.00 Weight (Pounds): 190 Weight (Ounces): 8.0 Precautions Precautions/Isolations: Standard Precautions Safety Interventions: None Weight Bear Status Weight Bearing Restriction: Weight Bearing/Tolerated Referral Physician: Megan Morris DO Referral Reason: Activity Tolerance, Self Care, Evaluation/Treatment, Strengthening/ROM Medical History Additional Medical History CAD, high chol, HTN, stroke, breast removal, gallbladder, hysterectomy, tubal ligation, renal failure, gastroesophageal reflux, arthritis, IDDM, h/o breast ca and leukemia Current History Pt underwent hysterectomy 09/01/19. Pt states she went home 09/02, took her pain medication, then became sweaty/ hot and shaky. Pt states daughter brought pt to hospital. Reviewed History: Yes Social History Home: Single Level Current Living Status: Alone (daughter living with pt at moment until stronger) Entry Into Home: Stairs With Railing Steps Into Home: 3 ADL-Prior Level of Function SCALE: Activities may be completed with or without assistive devices. 7-Zvxfjyssxe-ttgxhnn completes the activity by him/herself with no assistance from a helper. 5-Set-up or Clean-up Assistance-helper sets up or cleans up; patient completes activity. [place] assists only prior to or following the activity. 4-Supervision or Touching Assistance-helper provides verbal cues and/or touching/steadying and/or contact guard assistance as patient completes activity. Assistance may be provided throughout the activity or intermittently. 3-Partial/Moderate Assistance-helper does LESS THAN HALF the effort. [place] lifts, holds or supports trunk or limbs, but provides less than half the effort. 2-Substantial/Maximal Assistance-helper does MORE THAN HALF the effort. [place] lifts or holds trunk or limbs and provides more than half the effort. 7-Kitxzwvpl-xrnnvn does ALL the effort. Patient does none of the effort to complete the activity. Or, the assistance of 2 or more helpers is required for the patient to complete the activity. If activity was not attempted, code reason: 7-Patient Refused. 9-Not Applicable-not attempted and the patient did not perform the activity before the current illness, exacerbation or injury. 10-Not Attempted due to Environmental Limitations-(lack of equipment, weather restraints, etc.). 88-Not Attempted due to Medical Conditions or Safety Concerns. ADL PLOF Comments Pt states IND without AE. 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 Pt denies pain, states she has been feeling very weak. Daughter present through session. Mental Status/Objective Patient Orientation: Normal For Age Current Glasses/Contacts: Yes Hearing Aids: No Hand Dominance: Right Upper Extremity ROM R shoulder flexion/ scaption to ~75*. PROM to ~120*. Pt had lymph node removal R side, fibrotic scar noted in axilla- pt states since surgery has been utilizing LUE more. L shoulder AROM to ~150* (WFL) Upper Extremity Coordination WFL BUE Upper Extremity Sensation WFL BUE Pt states numbness in R axillary area. Upper Extremity Strength Decreased bilaterally Edema: slight edema bilateral hands. ADL-Treatment Eating (QC): 6 On/Off Footwear (QC): 6 (per pt.) Toileting Hygiene (QC): 4 (per pt) Other Treatments Pt and daughter seen in room. Pt denies pain, more weakness. Pt educated on OT role, pt states hx/ good historian. Pt states she has been up with PT and utilized walker due to shakes, utilized BSC with assist, and able to doff/ don socks with increased time. Pt completes AROM/ MMT in chair, L UE MMT demonstrates lowered strength. Administration Manager strength weak bilaterally. Slight edema noted bilateral hands. Pt given pink hand sponge for director of critical care strength/ edema control. Pt demonstrates back. Pt and daughter state they were unsure if pt is d/c'ing today/ tomorrow. Pt educated on plan if still here tomorrow. Pt denies any ADLs or additional needs. Pt educated on cross friction massage on fibrotic scar to increase ROM through RUE, pt nods. Pt left in chair with call light in reach/ all needs met. Education OT Patient Education: Correct positioning, Exercise program, Home exercise program, Instructions to caregiver Teaching Recipient: Patient Teaching Methods: Demonstration, Discussion Response to Teaching: Verbalize Understanding, Return Demonstration OT Respiratory Technician Goals Respiratory Technician Goals Time Frame: Sep 11, 2019 Eating (QC): 6 Oral Hygiene (QC): 6 Toileting Hygiene (QC): 6 Shower/Bathe Self (QC): 6 Upper Body Dressing (QC): 6 Lower Body Dressing (QC): 6 On/Off Footwear (QC): 6 Additional Goals: 1-Demonstrate ADL Tasks, 2-Verbalize Understanding, 3- ImproveStrength/Steve 1=Demonstrate adherence to instructed precautions during ADL tasks. 2=Patient will verbalize/demonstrate understanding of assistive devices/modifications for ADL. 3=Patient will improve strength/tolerance for activity to enable patient to perform ADL's. OT Education/Plan Problem List/Assessment Assessment: Decreased Activ Tolerance, Decreased UE Strength, Edema, Impaired I ADL's, Impaired Self-Care Skills, Restricted Funct UE ROM Discharge Recommendations Plan/Recommendations: Continue POC Therapy Discharge Recommendati: Home & Family, Post Acute OT Treatment Plan/Plan of Care Treatment,Training & Education: Yes Patient would benefit from OT for education, treatment and training to promote independence in ADL's, mobility, safety and/or upper extremity function for ADL's. Plan of Care: ADL Retraining, Caregiver Training, Functional Mobility, Group Exercise/Act as Ind, UE Funct Exercise/Act Treatment Duration: Sep 11, 2019 Frequency: 5 times per week Estimated Hrs Per Day: .25 hour per day Rehab Potential: Fair Time/GCodes Start Time: 11:29 Stop Time: 11:40 Total Time Billed (hr/min): 11 Billed Treatment Time ANTWAN Fuller (11MAGGIE LIU OTR Sep 04, 2019 11:49
[2019-09-04] MEDS ORDERED: CEPH-507 PO (12:51)
--- NOTE | 2019-09-04 12:56 | NUR ---
RD ASSESSMENT PMHx: CA(breast); CAD; HTN; hypercholesterolemia; DM; renal failure; GERD; chronic constipation PT INTERACTION: Pt was awake and pleasant during nutrition assessment. Pt states current appetite is "not much" and has been this way for a while. Note pt has had meals, but amount eaten has not been recorded, per chart review. Pt states following a regular diet at home, and has no issues with chewing/swallowing food at this time. Pt states some recent issues with nausea, but no vomiting. Pt states no recent issues with constipation/diarrhea, and that her last BM was 09/01. Note pt currently on bowel regimen of senna BID, per chart review. Pt states no recent wt changes. Note unable to determine recent wt hx, per chart review. Pt's daughter had requested DM education for the pt. ABNORMAL NUTRITION-RELATED LAB VALUES LOW: Pro 5.7 HIGH: Cl 109 Est. kcal needs: 9746-3954 kcal | 20-25 kcal/kg Est. Pro needs: 86-103 g Pro | 1.0-1.2 g Pro/kg PES STATEMENT: Inadequate oral intake (NI-2.1) related to loss of appetite | nausea as evidenced by pt interview INTERVENTION: Continue with current diet order of CHO 45g/m 0snack diet. Pt may benefit from nutrition supplementation if PO intake declines. Discussed and provided handout on CHO counting and CHO's relationship to glucose control. Handout provided examples of serving sizes and CHO amounts in common foods with the pt's diet. Discussed label reading and meal planning. Provided contact information should pt or daughter have questions upon discharge. Will continue to follow and reassess as pt needs and status change. MONITOR/EVALUATE: PO Intake; Plan of Care; Hydration Status; Weight Status; Lab Values Mariposa Grimm, MS, RD, LD
[2019-09-04] MEDS ORDERED: ENOXAPARIN 40 MG/0.4 ML (LOVENOX) SYR SC SCH (16:00)
--- NOTE | 2019-09-04 16:12 | NUR ---
Pastoral care visit.
== END 2019-09-04 17:00 | disposition home or self-care (01) ==
LOC: EDUNIT# 12:53 → ER 12:54 → 4TH 15:35
PROVIDERS: ADMIT Obstetrics & Gynecology; ATTEND Obstetrics & Gynecology
DX: A41.9 Sepsis, unspecified organism (principal); E11.22 Type 2 diabetes mellitus with diabetic chronic kidney disease; N19 Unspecified kidney failure; I25.10 Atherosclerotic heart disease of native coronary artery without angina pectoris; I10 Essential (primary) hypertension; E78.00 Pure hypercholesterolemia, unspecified; K21.9 Gastro-esophageal reflux disease without esophagitis; K59.09 Other constipation; M19.90 Unspecified osteoarthritis, unspecified site; R06.4 Hyperventilation; N39.0 Urinary tract infection, site not specified; D72.829 Elevated white blood cell count, unspecified; F41.9 Anxiety disorder, unspecified; Z79.891 Long term (current) use of opiate analgesic; Z85.3 Personal history of malignant neoplasm of breast; Z88.8 Allergy status to other drugs, medicaments and biological substances; Z79.4 Long term (current) use of insulin; Z79.899 Other long term (current) drug therapy; Z90.710 Acquired absence of both cervix and uterus; Z86.73 Personal history of transient ischemic attack (TIA), and cerebral infarction without residual deficits; Z92.21 Personal history of antineoplastic chemotherapy; Z90.11 Acquired absence of right breast and nipple; Z82.49 Family history of ischemic heart disease and other diseases of the circulatory system; Z83.3 Family history of diabetes mellitus; Z82.61 Family history of arthritis
CPT/HCPCS: 36415; 51701; 71045; 71275; 80053; 81000; 82550; 82553; 82805; 82962; 83605; 83735; 83874; 83880; 84443; 84484; 85007; 85025; 85027; 85610; 85730; 87040; 87088; 87804; 93005; 93041; 94640; 94664; 96372; 96374; 96375; G0378

== ENCOUNTER 2019-11-25 10:55 | Outpatient (RCR) | payer MEDICARE ==
[~2019-11-25 10:55] MED LIST changes: +CEPH-507 PO; -GLIM2TAB2 PO; +GLIM2TAB4 PO; -LETR2.5T5 PO; +LETR2.5T6 PO; +LIRA0.6P3 SC
[2019-11-25 11:08] LABS: BASOPHILS % (AUTO) 0 % (0-10); EOSINOPHILS # (AUTO) 0.1 10^3/uL (0.0-0.3); EOSINOPHILS % (AUTO) 1 % (0-10); HEMATOCRIT 39 % (35-52); HEMOGLOBIN 12.5 G/DL (11.5-16.0); LYMPHOCYTES % (AUTO) 73 % (12-44); MEAN CORPUSCULAR HEMOGLOBIN 30 PG (25-34); MEAN CORPUSCULAR HGB CONC 33 G/DL (32-36); MEAN CORPUSCULAR VOLUME 93 FL (80-99); MEAN PLATELET VOLUME 11.2 FL (7.4-10.4); MONOCYTES # (AUTO) 0.6 X 10^3 (0.0-1.0); MONOCYTES % (AUTO) 4 % (0-12); NEUTROPHILS # (AUTO) 3.3 X 10^3 (1.8-7.8); NEUTROPHILS % (AUTO) 22 % (42-75); PLATELET COUNT 193 10^3/uL (130-400); RED CELL DISTRIBUTION WIDTH 14.7 % (10.0-14.5)
[2019-11-25 11:25] LABS: ALANINE AMINOTRANSFERASE 30 U/L (0-55); ALBUMIN 4.1 GM/DL (3.2-4.5); ALKALINE PHOSPHATASE 111 U/L (40-136); BILIRUBIN,TOTAL 0.3 MG/DL (0.1-1.0); BUN/CREATININE RATIO 15; CALCIUM 9.3 MG/DL (8.5-10.1); CARBON DIOXIDE 21 MMOL/L (21-32); CHLORIDE 109 MMOL/L (98-107); CREATININE SERUM 0.91 MG/DL (0.60-1.30); GFR ESTIMATED > 60; GLUCOSE 212 MG/DL (70-105); POTASSIUM 3.9 MMOL/L (3.6-5.0); SODIUM 141 MMOL/L (135-145); TOTAL PROTEIN 6.8 GM/DL (6.4-8.2)
== END 2020-02-23 | disposition home or self-care (01) ==
LOC: ONC 10:55
PROVIDERS: ATTEND Internal Medicine Hematology & Oncology
DX: C50.411 Malignant neoplasm of upper-outer quadrant of right female breast (principal); C91.10 Chronic lymphocytic leukemia of B-cell type not having achieved remission; C54.1 Malignant neoplasm of endometrium; C79.89 Secondary malignant neoplasm of other specified sites; E11.22 Type 2 diabetes mellitus with diabetic chronic kidney disease; N18.3 Chronic kidney disease, stage 3 (moderate); Z90.722 Acquired absence of ovaries, bilateral; Z90.710 Acquired absence of both cervix and uterus; Z79.899 Other long term (current) drug therapy; Z90.11 Acquired absence of right breast and nipple; Z90.89 Acquired absence of other organs; Z79.4 Long term (current) use of insulin
CPT/HCPCS: 80053; 83615; 85025; G0463; 99213

== ENCOUNTER → 2020-04-06 | Outpatient (CLI) | payer MEDICARE ==
--- NOTE | 2020-04-06 10:41 | Diagnostic Imaging Report ---
INDICATION: Screening. TECHNIQUE: The current study was also evaluated with a Computer Aided Detection (CAD) system. 3-D Tomographic imaging was also performed. COMPARISON: 03/31/2019, 03/04/2018, and 06/21/2016. FINDINGS: There are scattered fibroglandular densities. There is no dominant mass, spiculated lesion, or suspicious calcification identified. There are a few benign type calcifications. The skin, nipples, and axillae are unremarkable. IMPRESSION: Benign findings. ACR BI-RADS Category 2: Benign findings. Result letter will be mailed to the patient. Note: At least 10% of breast cancer is not imaged by mammography. Dictated by: Dictated on workstation # [id number]
== END ==
LOC: RAD 10:00
PROVIDERS: ATTEND Nurse Practitioner Adult Health
DX: Z12.31 Encounter for screening mammogram for malignant neoplasm of breast (principal); Z85.3 Personal history of malignant neoplasm of breast; Z90.11 Acquired absence of right breast and nipple
CPT/HCPCS: 77063

== ENCOUNTER → 2020-05-24 | Outpatient (RCR) | payer MEDICARE ==
[2020-02-24 11:37] LABS: BASOPHILS # (AUTO) 0.1 10^3/uL (0.0-0.1); BASOPHILS % (AUTO) 0 % (0-10); EOSINOPHILS # (AUTO) 0.2 10^3/uL (0.0-0.3); EOSINOPHILS % (AUTO) 1 % (0-10); HEMATOCRIT 40 % (35-52); HEMOGLOBIN 12.8 G/DL (11.5-16.0); LYMPHOCYTES # (AUTO) 11.8 X 10^3 (1.0-4.0); LYMPHOCYTES % (AUTO) 68 % (12-44); MEAN CORPUSCULAR HEMOGLOBIN 30 PG (25-34); MEAN CORPUSCULAR HGB CONC 32 G/DL (32-36); MEAN CORPUSCULAR VOLUME 94 FL (80-99); MEAN PLATELET VOLUME 11.4 FL (7.4-10.4); MONOCYTES # (AUTO) 0.5 X 10^3 (0.0-1.0); MONOCYTES % (AUTO) 3 % (0-12); NEUTROPHILS # (AUTO) 4.8 X 10^3 (1.8-7.8); NEUTROPHILS % (AUTO) 28 % (42-75); PLATELET COUNT 206 10^3/uL (130-400); WHITE BLOOD COUNT 17.4 10^3/uL (4.3-11.0)
[2020-02-24 11:59] LABS: ALANINE AMINOTRANSFERASE 45 U/L (0-55); ALBUMIN 4.4 GM/DL (3.2-4.5); ALKALINE PHOSPHATASE 101 U/L (40-136); BILIRUBIN,TOTAL 0.4 MG/DL (0.1-1.0); BUN/CREATININE RATIO 31; CARBON DIOXIDE 23 MMOL/L (21-32); CHLORIDE 111 MMOL/L (98-107); CREATININE SERUM 0.88 MG/DL (0.60-1.30); GFR ESTIMATED > 60; GLUCOSE 147 MG/DL (70-105); POTASSIUM 4.9 MMOL/L (3.6-5.0); SODIUM 143 MMOL/L (135-145); TOTAL PROTEIN 7.2 GM/DL (6.4-8.2)
[2020-05-24 10:15] LABS: BASOPHILS # (AUTO) 0.1 10^3/uL (0.0-0.1); BASOPHILS % (AUTO) 1 % (0-10); EOSINOPHILS # (AUTO) 0.2 10^3/uL (0.0-0.3); EOSINOPHILS % (AUTO) 1 % (0-10); HEMATOCRIT 41 % (35-52); HEMOGLOBIN 12.9 g/dL (11.5-16.0); LYMPHOCYTES % (AUTO) 71 % (12-44); MEAN CORPUSCULAR HEMOGLOBIN 29 pg (25-34); MEAN CORPUSCULAR HGB CONC 31 g/dL (32-36); MEAN CORPUSCULAR VOLUME 93 fL (80-99); MEAN PLATELET VOLUME 11.6 fL (9.0-12.2); MONOCYTES # (AUTO) 0.7 10^3/uL (0.0-1.0); MONOCYTES % (AUTO) 4 % (0-12); NEUTROPHILS # (AUTO) 3.5 10^3/uL (1.8-7.8); NEUTROPHILS % (AUTO) 22 % (42-75); PLATELET COUNT 227 10^3/uL (130-400); WHITE BLOOD COUNT 15.4 10^3/uL (4.3-11.0)
[2020-05-24 10:36] LABS: ALBUMIN 4.4 GM/DL (3.2-4.5); BILIRUBIN,TOTAL 0.5 MG/DL (0.1-1.0); CALCIUM 9.5 MG/DL (8.5-10.1); CREATININE SERUM 0.94 MG/DL (0.60-1.30); TOTAL PROTEIN 7.3 GM/DL (6.4-8.2)
== END | disposition home or self-care (01) ==
LOC: ONC 02-24 10:58
PROVIDERS: ATTEND Internal Medicine Hematology & Oncology
DX: C50.411 Malignant neoplasm of upper-outer quadrant of right female breast (principal); C91.10 Chronic lymphocytic leukemia of B-cell type not having achieved remission; C54.1 Malignant neoplasm of endometrium; C79.89 Secondary malignant neoplasm of other specified sites; E11.22 Type 2 diabetes mellitus with diabetic chronic kidney disease; I12.9 Hypertensive chronic kidney disease with stage 1 through stage 4 chronic kidney disease, or unspecified chronic kidney disease; N18.30 Chronic kidney disease, stage 3 unspecified; E78.00 Pure hypercholesterolemia, unspecified; Z90.722 Acquired absence of ovaries, bilateral; Z90.710 Acquired absence of both cervix and uterus; Z79.899 Other long term (current) drug therapy; Z90.11 Acquired absence of right breast and nipple; Z90.89 Acquired absence of other organs; Z79.4 Long term (current) use of insulin
CPT/HCPCS: 80053; 83615; 85025; G0463; 99213

== ENCOUNTER 2020-07-28 20:10 | Emergency (ER) | payer MEDICARE ==
[~2020-07-28] VITALS: Ht 162.5 cm; Wt 83.0 kg
[2020-07-28] MEDS ORDERED: fentaNYL INJECTION 100 MCG/2 ML AMP IVP ONE (20:30)
--- NOTE | 2020-07-28 20:33 | ED Back Pain ---
General Chief Complaint: Back Problems Stated Complaint: BACK PAIN Source of Information: Patient Exam Limitations: No Limitations History of Present Illness Date Seen by Provider: Jul 28, 2020 Time Seen by Provider: 19:00 Initial Comments To ER with right-sided low back pain that began 9 days ago. The pain is constant. No fevers no chills no preceding trauma. No nausea no vomiting no diarrhea no urinary symptoms. Location: Lumbar Spine Timing/Duration: Other (9 days) Severity: Moderate Pain/Injury Location: Back Associated Symptoms: denies symptoms Allergies and Home Medications Allergies Coded Allergies: naproxen (Verified Allergy, Mild, KIDNEY ISSUES, 08/28/19) ibuprofen (Verified Allergy, Unknown, 09/01/19) PT REPORTS INSTRUCTED NOT TO TAKE D/T KIDNEY FUNCTION Home Medications Aspirin 81 Mg Tab.chew, 81 MG PO DAILY, (Reported) Atorvastatin Calcium 40 Mg Tablet, 40 MG PO HS, (Reported) Cephalexin 500 Mg Capsule, 500 MG PO QID Prescribed by: NAVEEN GARCIA on 09/04/19 1251 Clopidogrel Bisulfate 75 Mg Tablet, 75 MG PO DAILY, (Reported) Dapagliflozin Propanediol 10 Mg Tablet, 10 MG PO DAILY, (Reported) Docusate Sodium 100 Mg Capsule, 100 MG PO DAILY, (Reported) Glimepiride 2 Mg Tablet, 2 MG PO BID, (Reported) Insulin Detemir 100 Unit/1 Ml Insuln.pen, 80 UNIT SQ DAILY, (Reported) Letrozole 2.5 Mg Tablet, 2.5 MG PO DAILY, (Reported) Liraglutide 0.6 Mg/0.1 Ml Pen.injctr, 1.8 MG SC DAILY, (Reported) Lisinopril 40 Mg Tablet, 40 MG PO DAILY, (Reported) Metoprolol Succinate 25 Mg Tab.er.24h, 12.5 MG PO BID, (Reported) TAKE 1/2 OF 25MG TAB Patient Home Medication List Home Medication List Reviewed: Yes Review of Systems Constitutional: see HPI EENTM: see HPI (He looked into your eyes as he whispered it softly into your ear) Respiratory: no symptoms reported Cardiovascular: no symptoms reported Genitourinary: no symptoms reported Musculoskeletal: see HPI, back pain Skin: no symptoms reported Psychiatric/Neurological: No Symptoms Reported Past Hdimrtn-Nmurnr-Kcjbdd Hx Patient Social History Alcohol Use: Denies Use Recreational Drug Use: No Smoking Status: Never a Smoker 2nd Hand Smoke Exposure: No Recent Foreign Travel: No Contact w/Someone Who Travel: No Recent Hopitalizations: No (09/01-09/02/19 FOR HYST/BSO) Immunizations Up To Date Tetanus Booster (TDap): Less than 5yrs Date of Pneumonia Vaccine: May 06, 2013 Date of Influenza Vaccine: May 12, 2019 Seasonal Allergies Seasonal Allergies: No Past Medical History Surgeries: Yes (RIGHT MASTECTOMY; HYST/BSO 09/01/19) Breast, Gallbladder, Hysterectomy, Oophorectomy, 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 Respiratory: No Currently Using CPAP: No Currently Using BIPAP: No Cardiac: Yes Coronary Artery Disease, High Cholesterol, Hypertension Neurological: Yes (CVA RIGHT SIDE WEAKNESS) Stroke Reproductive Disorders: Yes (D&C 1999 FOR HEAVY MENSTRUAL BLEEDING; HYST/BSO 09/01/19 ) Female 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, 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 Sexually Transmitted Disease: No HIV/AIDS: No Genitourinary: Yes (HX-LABS HAVE IMPROVED; NO DIALYSIS) Renal Failure Gastrointestinal: Yes Gastroesophageal Reflux, Chronic Constipation Musculoskeletal: Yes Arthritis Endocrine: Yes Diabetes, Insulin dep HEENT: No (READING GLASSES) Loss of Vision: Denies Hearing Impairment: Denies Cancer: Yes (B CELL CHRONIC LYMPHOCYTIC LEUKEMIA;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/2018 ) Leukemia, Breast Did You Recieve Any Treatments: Yes What Type of Treatment Did You: Chemotherapy, Surgical Intervention Psychosocial: No Integumentary: No Blood Disorders: No Adverse Reaction/Blood Tranf: No (N/A) Family Medical History Abdominal aortic aneurysm Alzheimer's disease Arthritis Cardiovascular disease Cataracts Completed stroke Dementia Diabetes mellitus Hypercholesterolemia Hypertension Myocardial infarction Neoplasm Psychosocial problem Thyroid disease PSH: -BTL 1978 -D&C 1999 FOR HEAVY MENTSTURAL BLEEDING -COLONOSCOPY -RIGHT AXILLARY LUMPECTOMY 2015 -RIGHT MASTECTOMY 05/2018 -RA-LAPAROSCOPIC HYST/BSO 09/01/19 FOR POST MENOPAUSAL BLEEDING/ENDOMETRIAL HYPERPLASIA Physical Exam Vital Signs Vital Signs - First Documented 07/28/20 20:24 Temp 36.2 Pulse 85 Resp 20 B/P (MAP) 156/76 (102) Pulse Ox 98 O2 Delivery Room Air Capillary Refill : Height, Weight, BMI Height: 5'4.00" Weight: 190lbs. 8.0oz. 86.201508oj; 33.35 BMI Method:Stated General Appearance: No Apparent Distress, WD/WN Neck: Full Range of Motion, Normal Inspection Respiratory: No Accessory Muscle Use, No Respiratory Distress Gastrointestinal: Normal Bowel Sounds, Non Tender, Soft Back: Normal Inspection, Other (Right flank tender to palpation) Extremity: Normal Capillary Refill, Normal Inspection Neurologic/Psychiatric: Alert, Oriented x3 Skin: Normal Color, Warm/Dry Progress/Results/Core Measures Results/Orders Lab Results Laboratory Tests Test 07/28/20 20:35 07/28/20 21:00 Range/Units White Blood Count 15.3 H 4.3-11.0 10^3/uL Red Blood Count 4.31 3.80-5.11 10^6/uL Hemoglobin 12.7 11.5-16.0 g/dL Hematocrit 41 35-52 % Mean Corpuscular Volume 94 80-99 fL Mean Corpuscular Hemoglobin 30 25-34 pg Mean Corpuscular Hemoglobin Concent 31 L 32-36 g/dL Red Cell Distribution Width 14.9 H 10.0-14.5 % Platelet Count 205 130-400 10^3/uL Mean Platelet Volume 12.6 H 9.0-12.2 fL Immature Granulocyte % (Auto) 0 % Neutrophils (%) (Auto) 16 L 42-75 % Lymphocytes (%) (Auto) 79 H 12-44 % Monocytes (%) (Auto) 3 0-12 % Eosinophils (%) (Auto) 1 0-10 % Basophils (%) (Auto) 1 0-10 % Neutrophils # (Auto) 2.5 1.8-7.8 10^3/uL Lymphocytes # (Auto) 12.0 H 1.0-4.0 10^3/uL Monocytes # (Auto) 0.5 0.0-1.0 10^3/uL Eosinophils # (Auto) 0.2 0.0-0.3 10^3/uL Basophils # (Auto) 0.1 0.0-0.1 10^3/uL Immature Granulocyte # (Auto) 0.0 0.0-0.1 10^3/uL Neutrophils % (Manual) 24 % Lymphocytes % (Manual) 67 % Monocytes % (Manual) 2 % Eosinophils % (Manual) 0 % Basophils % (Manual) 0 % Band Neutrophils 0 % Reactive Lymphocytes 7 % Smudge Cells SLIGHT Poikilocytosis SLIGHT Anisocytosis SLIGHT Rouleau SLIGHT Sodium Level 143 135-145 MMOL/L Potassium Level 4.6 3.6-5.0 MMOL/L Chloride Level 110 H 98-107 MMOL/L Carbon Dioxide Level 17 L 21-32 MMOL/L Anion Gap 16 H 5-14 MMOL/L Blood Urea Nitrogen 24 H 7-18 MG/DL Creatinine 0.89 0.60-1.30 MG/DL Estimat Glomerular Filtration Rate > 60 BUN/Creatinine Ratio 27 Glucose Level 264 H 70-105 MG/DL Calcium Level 9.5 8.5-10.1 MG/DL Corrected Calcium 9.2 8.5-10.1 MG/DL Total Bilirubin 0.5 0.1-1.0 MG/DL Aspartate Amino Transf (AST/SGOT) 27 5-34 U/L Alanine Aminotransferase (ALT/SGPT) 28 0-55 U/L Alkaline Phosphatase 101 40-136 U/L Total Protein 7.6 6.4-8.2 GM/DL Albumin 4.4 3.2-4.5 GM/DL Urine Color YELLOW Urine Clarity CLEAR Urine pH 5.5 5-9 Urine Specific Eldridge 1.025 H 1.016-1.022 Urine Protein NEGATIVE NEGATIVE Urine Glucose (UA) 3+ H NEGATIVE Urine Ketones NEGATIVE NEGATIVE Urine Nitrite NEGATIVE NEGATIVE Urine Bilirubin NEGATIVE NEGATIVE Urine Urobilinogen 0.2 < = 1.0 MG/DL Urine Leukocyte Esterase NEGATIVE NEGATIVE Urine RBC (Auto) NEGATIVE NEGATIVE Urine RBC NONE /HPF Urine WBC 2-5 /HPF Urine Squamous Epithelial Cells 5-10 /HPF Urine Crystals NONE /LPF Urine Bacteria TRACE /HPF Urine Casts NONE /LPF Urine Mucus NEGATIVE /LPF Urine Yeast FEW H /HPF Urine Culture Indicated YES My Orders Orders - 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 APRN Cbc With Automated Diff (07/28/20 20:30) Comprehensive Metabolic Panel (07/28/20 20:30) Ed Iv/Invasive Line Start (07/28/20 20:30) Ct Abd/Pelvis Wo(Kidney Stone) (07/28/20 20:30) Fentanyl Injection (Sublimaze Injection (07/28/20 20:30) Manual Differential (07/28/20 20:35) Ns Iv 1000 Ml (Sodium Chloride 0.9%) (07/28/20 21:30) Rx-Tramadol Hcl (Rx-Ultram) (12/23/20 21:51) Medications Given in ED Current Medications Medications Dose Ordered Sig/Sherrie Route Start Time Stop Time Status Last Admin Dose Admin Fentanyl Citrate 75 mcg ONCE ONCE IVP 07/28/20 20:30 07/28/20 20:31 DC 07/28/20 20:40 75 MCG Vital Signs/I&O 07/28/20 20:24 Temp 36.2 Pulse 85 Resp 20 B/P (MAP) 156/76 (102) Pulse Ox 98 O2 Delivery Room Air Diagnostic Imaging Diagonstic Imaging: CT Comments NAME: ASHLEY BROCK [facility] REC#: [id number] PT STATUS: REG ER : 1950 PHYSICIAN: 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 APRN ADMIT DATE: 07/28/20/ER Draft Date of Exam:07/28/20 CT ABD/PELVIS WO(KIDNEY STONE) PROCEDURE: CT urinary tract, rule out kidney stone. TECHNIQUE: Multiple contiguous axial images were obtained through the abdomen and pelvis without the use of intravenous contrast. Auto Exposure Controls were utilized during the CT exam to meet ALARA standards for radiation dose reduction. INDICATION: Back and left hip pain. COMPARISON: Prior examination from 01/07/2019. FINDINGS: The heart size is normal. The lung bases are clear. The liver is normal in size without focal lesions. Spleen is normal. The pancreas and adrenal glands are unremarkable. There is a cyst in the right kidney. There is no evidence of nephrolithiasis or obstructive uropathy. There is moderate atherosclerotic calcination of the aorta which is nonaneurysmal. Bowel gas pattern is nonspecific. The appendix is normal. There is no free air. There is no ascites. There are no focal inflammatory changes. Bladder is normal. There is no pelvic mass or adenopathy. There are degenerative changes in the hips, bilaterally. There are also degenerative changes in the spine. IMPRESSION: 1. Degenerative changes in the spine and hips, bilaterally. 2. No evidence of nephrolithiasis or obstructive uropathy. There is a small right renal cyst. 3. No other acute abnormality in the abdomen or pelvis. Dictated on workstation # [id number] Dict: 07/28/202120 Trans: 07/28/202130 [facility] [id number] Interpreted by: ADILIA ONOFRE MD Electronically signed by: Departure Communication (Admissions) [id number]-leukocytosis may be secondary to dehydration as she has an elevated specific gravity of urine, elevated BUN and absence of infectious symptoms such as fevers or chills. Does not like oxycodone or hydrocodone because of the way it makes her feel, she has taken tramadol before with much relief. Impression Primary Impression: Acute low back pain Disposition: HOME, SELF-CARE Condition: Stable Departure-Patient Inst. Decision time for Depature: 21:53 Referrals: [facility] [place] Primary Care Physician Patient Instructions: Low Back Pain (DC) Add. Discharge Instructions: 1. Return to ER for any worsening symptoms or other concerns. Follow-up with your doctor next week. All discharge instructions reviewed with patient and/or family. Voiced understanding. 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 HUC Jul 28, 2020 20:33
[2020-07-28 20:47] LABS: BASOPHILS # (AUTO) 0.1 10^3/uL (0.0-0.1); BASOPHILS % (AUTO) 1 % (0-10); EOSINOPHILS # (AUTO) 0.2 10^3/uL (0.0-0.3); EOSINOPHILS % (AUTO) 1 % (0-10); HEMATOCRIT 41 % (35-52); HEMOGLOBIN 12.7 g/dL (11.5-16.0); LYMPHOCYTES % (AUTO) 79 % (12-44); MEAN CORPUSCULAR HEMOGLOBIN 30 pg (25-34); MEAN CORPUSCULAR HGB CONC 31 g/dL (32-36); MEAN CORPUSCULAR VOLUME 94 fL (80-99); MEAN PLATELET VOLUME 12.6 fL (9.0-12.2); MONOCYTES # (AUTO) 0.5 10^3/uL (0.0-1.0); MONOCYTES % (AUTO) 3 % (0-12); NEUTROPHILS # (AUTO) 2.5 10^3/uL (1.8-7.8); NEUTROPHILS % (AUTO) 16 % (42-75); PLATELET COUNT 205 10^3/uL (130-400); WHITE BLOOD COUNT 15.3 10^3/uL (4.3-11.0)
[2020-07-28 21:01] LABS: ALBUMIN 4.4 GM/DL (3.2-4.5)
[2020-07-28 21:03] LABS: CALCIUM 9.5 MG/DL (8.5-10.1)
[2020-07-28 21:04] LABS: GLUCOSE 264 MG/DL (70-105); TOTAL PROTEIN 7.6 GM/DL (6.4-8.2)
[2020-07-28 21:05] LABS: CARBON DIOXIDE 17 MMOL/L (21-32)
[2020-07-28 21:06] LABS: BILIRUBIN,TOTAL 0.5 MG/DL (0.1-1.0)
[2020-07-28 21:07] LABS: ALKALINE PHOSPHATASE 101 U/L (40-136)
[2020-07-28 21:07] LABS: BILIRUBIN,URINE NEGATIVE (NEGATIVE); CLARITY,URINE CLEAR; COLOR,URINE YELLOW; GLUCOSE, URINE (UA) 3+ (NEGATIVE); KETONES,URINE NEGATIVE (NEGATIVE); LEUKOCYTE ESTERASE ,URINE NEGATIVE (NEGATIVE); NITRITE,URINE NEGATIVE (NEGATIVE); PH,URINE 5.5 (5-9); PROTEIN,URINE NEGATIVE (NEGATIVE)
[2020-07-28 21:08] LABS: BAND NEUTROPHILS 0 %; NEUTROPHILS % (MANUAL) 24 %
[2020-07-28 21:09] LABS: ANISOCYTOSIS SLIGHT; BASOPHILS % (MANUAL) 0 %; BUN/CREATININE RATIO 27; CHLORIDE 110 MMOL/L (98-107); CREATININE SERUM 0.89 MG/DL (0.60-1.30); EOSINOPHILS % (MANUAL) 0 %; GFR ESTIMATED > 60; LYMPHOCYTES % (MANUAL) 67 %; MONOCYTES % (MANUAL) 2 %; POIKILOCYTOSIS SLIGHT; POTASSIUM 4.6 MMOL/L (3.6-5.0); REACTIVE LYMPHOCYTES 7 %; ROULEAUX SLIGHT; SMUDGE CELLS SLIGHT; SODIUM 143 MMOL/L (135-145)
[2020-07-28 21:10] LABS: ALANINE AMINOTRANSFERASE 28 U/L (0-55)
[2020-07-28 21:15] LABS: BACTERIA,URINE TRACE /HPF
[2020-07-28 21:16] LABS: YEAST,URINE FEW /HPF
[2020-07-28] MEDS ORDERED: NS IV 1000 ML 1,000 ML IV SCH (21:30)
--- NOTE | 2020-07-28 21:31 | Diagnostic Imaging Report ---
PROCEDURE: CT urinary tract, rule out kidney stone. TECHNIQUE: Multiple contiguous axial images were obtained through the abdomen and pelvis without the use of intravenous contrast. Auto Exposure Controls were utilized during the CT exam to meet ALARA standards for radiation dose reduction. INDICATION: Back and left hip pain. COMPARISON: Prior examination from 01/07/2019. FINDINGS: The heart size is normal. The lung bases are clear. The liver is normal in size without focal lesions. Spleen is normal. The pancreas and adrenal glands are unremarkable. There is a cyst in the right kidney. There is no evidence of nephrolithiasis or obstructive uropathy. There is moderate atherosclerotic calcination of the aorta which is nonaneurysmal. Bowel gas pattern is nonspecific. The appendix is normal. There is no free air. There is no ascites. There are no focal inflammatory changes. Bladder is normal. There is no pelvic mass or adenopathy. There are degenerative changes in the hips, bilaterally. There are also degenerative changes in the spine. IMPRESSION: 1. Degenerative changes in the spine and hips, bilaterally. 2. No evidence of nephrolithiasis or obstructive uropathy. There is a small right renal cyst. 3. No other acute abnormality in the abdomen or pelvis. Dictated by: Dictated on workstation # [id number]
[2020-07-28] MEDS ORDERED: RX-TRAMADOL 50 MG (ULTRAM) TAB PPK#4 PO STA (21:51)
[2020-07-28] MEDS ORDERED: TRAM-42 PO (21:56)
[2020-07-28 22:05] VITALS: BP 142/62
== END 2020-07-28 22:05 | disposition home or self-care (01) ==
LOC: EDUNIT# 20:10 → ER 20:13
DX: M54.5 Low back pain (principal); I10 Essential (primary) hypertension; E78.00 Pure hypercholesterolemia, unspecified; E11.9 Type 2 diabetes mellitus without complications; Z82.61 Family history of arthritis; Z83.3 Family history of diabetes mellitus; Z82.49 Family history of ischemic heart disease and other diseases of the circulatory system; Z85.6 Personal history of leukemia; Z85.3 Personal history of malignant neoplasm of breast; Z88.6 Allergy status to analgesic agent; Z88.8 Allergy status to other drugs, medicaments and biological substances; Z79.82 Long term (current) use of aspirin; Z79.4 Long term (current) use of insulin
CPT/HCPCS: 36415; 74176; 80053; 81000; 85007; 85027; 87088

== ENCOUNTER → 2020-08-31 | Outpatient (CLI) | payer MEDICARE ==
[~2020-08-31] MED LIST changes: -ESCI10TA55; +ESCI10TA64
--- NOTE | 2020-08-31 14:46 | Diagnostic Imaging Report ---
INDICATION: Postmenopausal state. COMPARISON: 08/29/2018 FINDINGS: AP Spine L1-L4: [BMD (g/cm2): 1.156] [T-Score: -0.4] [Z-Score: .7] [BMD Previous: 1.347] [BMD % Change: -14.2] LT Hip Neck: [BMD (g/cm2): 0.986] [T-Score: -0.4] [Z-Score: 0.9] LT Hip Total: [BMD (g/cm2):0.954] [T-Score:-0.4] [Z-Score: 0.6] [BMD Previous: 0.994] [BMD % Change: -4.0] RT Hip Neck: [BMD (g/cm2):1.024] [T-Score:-0.1] [Z-Score:1.2] RT Hip Total: [BMD (g/cm2):0.977] [T-score:-0.2] [Z-Score:0.8] [BMD Previous:1.006] [BMD % Change:-2.9] *Indicates significant change from prior examination based on 95% confidence level. World Health Organization criteria for BMD interpretation classify patients as Normal (T-score at or above -1.0), Osteopenic (T-score between -1.0 and -2.5) or Osteoporotic (T-score at or below -2.5). LIMITATIONS AND MODIFICATION: None. IMPRESSION: 1. Normal bone mineral density. 2. No significant change in bone mineral density since prior examination. 3. See below National Osteoporosis Foundation guidelines on when to potentially initiate pharmacologic therapy. Based on the National Osteoporosis Foundation Guidelines, pharmacologic treatment should be initiated in any of the following, unless clinical conditions suggest otherwise: * Any patient with prior fragility fracture of the hip or vertebrae. A spine fracture indicates 5X risk for subsequent spine fracture and 2X risk for subsequent hip fracture. * Osteoporosis (T-score <-2.5). * Postmenopausal women and men age 50 and older with low bone mass/osteopenia (T-score between -1.0 and -2.5) by DXA and 10-year major osteoporotic fracture greater than 20% or a 10-year probability of hip fracture greater than 3%. These fracture risks are supplied above in the FRAX score, if applicable. * Clinician judgement and/or patient preferences may indicate treatment for people with 10-year fracture probabilities above or below these levels. * Dictated by: Dictated on workstation # [id number]
== END ==
LOC: RAD 11:50
PROVIDERS: ATTEND Nurse Practitioner Adult Health
DX: Z78.0 Asymptomatic menopausal state (principal); Z79.811 Long term (current) use of aromatase inhibitors
CPT/HCPCS: 77080

== ENCOUNTER → 2020-09-14 | Outpatient (CLI) | payer MEDICARE ==
[~2020-09-14] MED LIST changes: +ESCI-2; -ESCI10TA64; -LISI40TA PO; +LISI40TA9 PO
[2020-09-14 09:59] LABS: BASOPHILS # (AUTO) 0.1 10^3/uL (0.0-0.1); BASOPHILS % (AUTO) 0 % (0-10); EOSINOPHILS # (AUTO) 0.3 10^3/uL (0.0-0.3); EOSINOPHILS % (AUTO) 1 % (0-10); HEMATOCRIT 42 % (35-52); HEMOGLOBIN 13.3 g/dL (11.5-16.0); LYMPHOCYTES # (AUTO) 14.4 10^3/uL (1.0-4.0); LYMPHOCYTES % (AUTO) 77 % (12-44); MEAN CORPUSCULAR HEMOGLOBIN 29 pg (25-34); MEAN CORPUSCULAR HGB CONC 31 g/dL (32-36); MEAN CORPUSCULAR VOLUME 94 fL (80-99); MEAN PLATELET VOLUME 11.6 fL (9.0-12.2); MONOCYTES # (AUTO) 0.6 10^3/uL (0.0-1.0); MONOCYTES % (AUTO) 3 % (0-12); NEUTROPHILS # (AUTO) 3.4 10^3/uL (1.8-7.8); NEUTROPHILS % (AUTO) 18 % (42-75); PLATELET COUNT 202 10^3/uL (130-400); WHITE BLOOD COUNT 18.7 10^3/uL (4.3-11.0)
[2020-09-14 10:21] LABS: ALBUMIN 4.5 GM/DL (3.2-4.5); BILIRUBIN,TOTAL 0.5 MG/DL (0.1-1.0); CREATININE SERUM 0.98 MG/DL (0.60-1.30); TOTAL PROTEIN 7.4 GM/DL (6.4-8.2)
== END ==
LOC: EDSTATUS 05-25 13:45 → ONC 09:52
PROVIDERS: ATTEND Internal Medicine Hematology & Oncology
DX: C50.411 Malignant neoplasm of upper-outer quadrant of right female breast (principal); C91.11 Chronic lymphocytic leukemia of B-cell type in remission; C54.1 Malignant neoplasm of endometrium; I12.9 Hypertensive chronic kidney disease with stage 1 through stage 4 chronic kidney disease, or unspecified chronic kidney disease; E11.22 Type 2 diabetes mellitus with diabetic chronic kidney disease; N18.30 Chronic kidney disease, stage 3 unspecified; E78.00 Pure hypercholesterolemia, unspecified; E11.69 Type 2 diabetes mellitus with other specified complication; E66.9 Obesity, unspecified; Z90.710 Acquired absence of both cervix and uterus; Z90.722 Acquired absence of ovaries, bilateral; Z90.11 Acquired absence of right breast and nipple; Z79.811 Long term (current) use of aromatase inhibitors
CPT/HCPCS: 80053; 83615; 85025; G0463; 99213

== ENCOUNTER → 2020-12-29 | Outpatient (CLI) | payer MEDICARE ==
[2020-12-29 10:17] LABS: BASOPHILS # (AUTO) 0.1 10^3/uL (0.0-0.1); BASOPHILS % (AUTO) 1 % (0-10); EOSINOPHILS # (AUTO) 0.2 10^3/uL (0.0-0.3); EOSINOPHILS % (AUTO) 1 % (0-10); HEMATOCRIT 41 % (35-52); LYMPHOCYTES # (AUTO) 12.1 10^3/uL (1.0-4.0); LYMPHOCYTES % (AUTO) 79 % (12-44); MEAN CORPUSCULAR HEMOGLOBIN 31 pg (25-34); MEAN CORPUSCULAR HGB CONC 32 g/dL (32-36); MEAN CORPUSCULAR VOLUME 96 fL (80-99); MEAN PLATELET VOLUME 11.5 fL (9.0-12.2); MONOCYTES # (AUTO) 0.5 10^3/uL (0.0-1.0); MONOCYTES % (AUTO) 3 % (0-12); NEUTROPHILS # (AUTO) 2.5 10^3/uL (1.8-7.8); NEUTROPHILS % (AUTO) 17 % (42-75); PLATELET COUNT 190 10^3/uL (130-400); WHITE BLOOD COUNT 15.4 10^3/uL (4.3-11.0)
[2020-12-29 10:39] LABS: ALBUMIN 4.3 GM/DL (3.2-4.5); BILIRUBIN,TOTAL 0.6 MG/DL (0.1-1.0); CALCIUM 9.8 MG/DL (8.5-10.1); CREATININE SERUM 1.03 MG/DL (0.60-1.30); POTASSIUM 4.3 MMOL/L (3.6-5.0)
== END ==
LOC: ONC 10:02
PROVIDERS: ATTEND Internal Medicine Hematology & Oncology
DX: Z12.31 Encounter for screening mammogram for malignant neoplasm of breast (principal); C54.1 Malignant neoplasm of endometrium; C54.9 Malignant neoplasm of corpus uteri, unspecified; C77.3 Secondary and unspecified malignant neoplasm of axilla and upper limb lymph nodes; E11.22 Type 2 diabetes mellitus with diabetic chronic kidney disease; I12.9 Hypertensive chronic kidney disease with stage 1 through stage 4 chronic kidney disease, or unspecified chronic kidney disease; N18.30 Chronic kidney disease, stage 3 unspecified; E78.00 Pure hypercholesterolemia, unspecified; Z90.11 Acquired absence of right breast and nipple; Z85.6 Personal history of leukemia; Z90.710 Acquired absence of both cervix and uterus; Z85.3 Personal history of malignant neoplasm of breast; Z79.811 Long term (current) use of aromatase inhibitors; Z79.82 Long term (current) use of aspirin
CPT/HCPCS: 80053; 83615; 85025; G0463; 99213

== ENCOUNTER → 2021-04-08 | Outpatient (CLI) | payer MEDICARE ==
--- NOTE | 2021-04-08 13:51 | Diagnostic Imaging Report ---
INDICATION: Routine screening. COMPARISON is made with prior mammograms from 04/06/2020 and 03/31/2019. Unilateral left 2-D and 3-D screening mammography was performed with CAD. Scattered fibroglandular densities in the left breast are noted. No mass or malignant-appearing microcalcifications are seen. Left axilla is unremarkable. IMPRESSION: BI-RADS Category 1 No mammographic features suspicious for malignancy are identified. ACR BI-RADS Category 1: Negative. Result letter will be mailed to the patient. Note: At least 10% of breast cancer is not imaged by mammography. Dictated by: Dictated on workstation # [id number]
== END ==
LOC: RAD 09:58
PROVIDERS: ATTEND Nurse Practitioner Adult Health
DX: Z12.31 Encounter for screening mammogram for malignant neoplasm of breast (principal)
CPT/HCPCS: 77063

== ENCOUNTER 2022-03-17 19:29 | Emergency (ER) | payer MEDICARE ==
[~2022-03-17] VITALS: Ht 160 cm; Wt 82.0 kg
[~2022-03-17 19:29] MED LIST changes: -BETH25TA PO; +BETH25TA2 PO
--- NOTE | 2022-03-17 20:21 | ED General ---
General Chief Complaint: Head/Cervical Problems Stated Complaint: HTN, BLOOD SUGAR, DEVI Source of Information: Patient (EXTREMELY VAGUE HISTORIAN ) History of Present Illness Date Seen by Provider: Mar 17, 2022 Time Seen by Provider: 19:55 Initial Comments PT ARRIVES VIA POV FROM HOME WITH FAMILY MEMBER/ DAUGHTER PT IS UNABLE TO GIVE ANY SPECIFIC COMPLAINTS SHE STATES SHE IS "JUST NOT FEELING GOOD" AND "SOMETHING'S NOT QUITE RIGHT" "DON'T KNOW EXACTLY WHAT IT IS" REPEATS MULTIPLE TIMES "SOMETHING'S NOT RIGHT" "I JUST DON'T FEEL LIKE MYSELF" PT HAS HAD INCREASED ANXIETY FOR THE LAST FEW DAYS, AND HAS NOT SLEPT FOR THE LAST 3 DAYS--STATES "JUST STRESS" STATES "I THINK ABOUT SOMETHING AND IT'S GOOD, THEN I THINK ABOUT SOMETHING AND IT'S BAD"--GOES ON ABOUT TRYING TO DECIDE IF SHE SHOULD MOVE OR NOT--SEEMS TO BE HAVING DIFFICULTY MAKING DECISIONS ??? PT HAD A STROKE IN 2010 AND HAS HAD MEMORY PROBLEMS SINCE THEN, BUT DAUGHTER REPORTS THAT THE MEMORY PROBLEMS HAVE BEEN GETTING WORSE AT ONE POINT, PT STATES "I THINK I'M LOSIN' MY MIND, BUT IT'S ALL IN MY WHOLE BODY TOO" PT IS INSULIN DIABETIC, STATES HER BLOOD SUGARS RANGE FROM 60'S TO 200'S. STATES IT WAS "73" JUST PRIOR TO ARRIVAL STATES SHE HAS NOT TAKEN HER "SHOT" TODAY ATE A SANDWICH AROUND 1900 TONIGHT DENIES ANY PHYSICAL COMPLAINTS OF ANY KIND NO HEADACHE NO VISION CHANGES NO PARESTHESIAS OR MOTOR DEFICITS NO CHEST PAIN NO SHORTNESS OF BREATH NO GI SYMTPOMS OR ABDOMINAL PAIN --HAS CHRONIC CONSTIPATION, TAKES MIRALAX DAILY NO URINARY SYMPTOMS NO FEVER/SWEATS/CHILLS NO COUGH OR URI SYMPTOMS NO PAIN ANYWHERE NO CHANGE IN CHRONIC LEG SWELLING--LEFT IS ALWAYS MORE SWOLLEN THAN RIGHT NO DIZZINESS OR SYNCOPE SYMPTOMS ARE NO DIFFERENT TONIGHT HAS NOT SOUGHT CARE UNTIL TONIGHT (SUNDAY NIGHT) PT HAS HAD BRIGHT/BRIGHT COVID VACCINE X 2 PCP: LIBAN, WAS SEEING EUGENIA BARNETT, BUT HAS NOT BEEN THERE FOR A LONG TIME. Allergies and Home Medications Allergies Coded Allergies: naproxen (Verified Allergy, Mild, KIDNEY ISSUES, 08/28/19) ibuprofen (Verified Allergy, Unknown, 09/01/19) PT REPORTS INSTRUCTED NOT TO TAKE D/T KIDNEY FUNCTION Patient Home Medication List Aspirin (Aspirin) 81 Mg Tab.chew, 81 MG PO DAILY, (Reported) Entered as Reported by: EMELI MCMAHAN on 03/27/18 1347 Atorvastatin Calcium (Atorvastatin Calcium) 40 Mg Tablet, 40 MG PO HS, (Reported) Entered as Reported by: EMELI MCMAHAN on 10/21/15 1230 Cephalexin (Keflex) 500 Mg Capsule, 500 MG PO QID Prescribed by: NAVEEN GARCIA on 09/04/19 1251 Clopidogrel Bisulfate (Clopidogrel) 75 Mg Tablet, 75 MG PO DAILY, (Reported) Entered as Reported by: BARBARA AGUILAR on 09/04/19 0902 Dapagliflozin Propanediol (Farxiga) 10 Mg Tablet, 10 MG PO DAILY, (Reported) Entered as Reported by: EMELI MCMAHAN on 03/27/18 1347 Docusate Sodium (Colace) 100 Mg Capsule, 100 MG PO DAILY, (Reported) Entered as Reported by: JACIEL SCHAEFFER on 08/28/19 1409 Glimepiride (Glimepiride) 2 Mg Tablet, 2 MG PO BID, (Reported) Entered as Reported by: BRIAN MARINELLI on 08/23/17 2111 Insulin Detemir (Levemir Flextouch) 100 Unit/1 Ml Insuln.pen, 80 UNIT SQ DAILY, (Reported) Entered as Reported by: EMELI MCMAHAN on 03/27/18 1347 Letrozole (Letrozole) 2.5 Mg Tablet, 2.5 MG PO DAILY, (Reported) Entered as Reported by: JACIEL SCHAEFFER on 08/28/19 1409 Liraglutide (Victoza 3-Ash) 0.6 Mg/0.1 Ml Pen.injctr, 1.8 MG SC DAILY, (Reported) Entered as Reported by: BARBARA AGUILAR on 09/04/19 0902 Lisinopril (Lisinopril) 40 Mg Tablet, 40 MG PO DAILY, (Reported) Entered as Reported by: EMELI MCMAHAN on 10/21/15 1230 Metoprolol Succinate (Metoprolol Succinate) 25 Mg Tab.er.24h, 12.5 MG PO BID, (Reported) Entered as Reported by: RUFUS WADE on 01/03/16 1402 Tramadol HCl (Ultram) 50 Mg Tablet, 50 MG PO Q6H PRN for PAIN-MODERATE (5-7) Prescribed by: 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 on 07/28/20 3743 Review of Systems Review of Systems Constitutional: no symptoms reported EENTM: no symptoms reported Respiratory: no symptoms reported Cardiovascular: no symptoms reported Gastrointestinal: no symptoms reported Genitourinary: no symptoms reported Musculoskeletal: no symptoms reported Skin: no symptoms reported Psychiatric/Neurological: See HPI, Anxiety Hematologic/Lymphatic: No Symptoms Reported Immunological/Allergic: no symptoms reported Past Ztpcjtt-Pvooho-Mbopxs Hx Patient Social History Tobacco Use?: No Substance use?: No Alcohol Use?: No Immunizations Up To Date Tetanus Booster (TDap): Less than 5yrs Seasonal Allergies Seasonal Allergies: No Past Medical History Surgeries: Yes (RIGHT MASTECTOMY; HYST/BSO 09/01/19;CHOLECYSTECTOMY) Breast, Gallbladder, Hysterectomy, Oophorectomy, 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 Respiratory: No Currently Using CPAP: No Currently Using BIPAP: No Cardiac: Yes (LEFT > RIGHT LEG/ANKLE/FOOT SWELLING) Chronic Edema/Swelling, Coronary Artery Disease, High Cholesterol, Hypertension Neurological: Yes (CVA RIGHT SIDE WEAKNESS-RESOLVED; MEMORY IMPAIRMENT) Stroke Reproductive Disorders: Yes (D&C 1999 FOR HEAVY MENSTRUAL BLEEDING; HYST/BSO 09/01/19 ) 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, 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 Sexually Transmitted Disease: No HIV/AIDS: No Genitourinary: Yes (HX-LABS HAVE IMPROVED; NO DIALYSIS) Renal Failure Gastrointestinal: Yes Gastroesophageal Reflux, Chronic Constipation Musculoskeletal: Yes Arthritis Endocrine: Yes Diabetes, Insulin dep HEENT: No (READING GLASSES) Loss of Vision: Denies Hearing Impairment: Denies Cancer: Yes (B CELL CHRONIC LYMPHOCYTIC LEUKEMIA;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/2018 ) Leukemia, Breast, Uterine Did You Recieve Any Treatments: Yes What Type of Treatment Did You: Chemotherapy, Surgical Intervention Psychosocial: No Integumentary: No Blood Disorders: No Adverse Reaction/Blood Tranf: No (N/A) Family Medical History Abdominal aortic aneurysm Alzheimer's disease Arthritis Cardiovascular disease Cataracts Completed stroke Dementia Diabetes mellitus Hypercholesterolemia Hypertension Myocardial infarction Neoplasm Psychosocial problem Thyroid disease PSH: -BTL 1978 -D&C 1999 FOR HEAVY MENTSTURAL BLEEDING -COLONOSCOPY -RIGHT AXILLARY LUMPECTOMY 2015 -RIGHT MASTECTOMY 05/2018 -RA-LAPAROSCOPIC HYST/BSO 09/01/19 FOR POST MENOPAUSAL BLEEDING/ENDOMETRIAL HYPERPLASIA Physical Exam Vital Signs Vital Signs - First Documented 03/17/22 19:53 Temp 36.3 Pulse 82 Resp 16 B/P (MAP) 132/57 (82) Pulse Ox 97 O2 Delivery Room Air Capillary Refill : Height, Weight, BMI Height: 5'4.00" Weight: 190lbs. 8.0oz. 86.611784do; 31.00 BMI Method:Stated General Appearance: No Apparent Distress, WD/WN, Anxious, Other (VERY ANXIOUS) HEENT: PERRL/EOMI, TMs Normal, Normal ENT Inspection, Pharynx Normal Neck: Full Range of Motion, Normal Inspection, Non Tender, Supple Respiratory: Normal Breath Sounds, No Accessory Muscle Use, No Respiratory Distress, Other (RIGHT BREAST ABSENT D/T PRIOR MASTECTOMY) Cardiovascular: Regular Rate, Rhythm, No JVD, Other (OCCASIONAL ECTOPY C/W PVC'S ON MONITOR) Gastrointestinal: Non Tender, Soft Back: No CVA Tenderness Extremity: Normal Capillary Refill, Normal Range of Motion, Non Tender, No Calf Tenderness, Pedal Edema (2+ ON LEFT, TRACE ON RIGHT--PT STATES IS NORMAL. 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 Norm as Tested; No Abnormal Cerebellar Tests; Other (ANXIOUS; WALKS WITHOUT DIFFICULTY) Skin: Normal Color, Warm/Dry Progress/Results/Core Measures Suspected Sepsis SIRS Temperature: Pulse: Respiratory Rate: Laboratory Tests 03/17/22 20:54: White Blood Count 16.3H Blood Pressure / Mean: Laboratory Tests 03/17/22 20:54: Creatinine 1.07, Platelet Count 212, Total Bilirubin 0.8 Results/Orders Lab Results Laboratory Tests Test 03/17/22 20:18 03/17/22 20:20 03/17/22 20:54 03/17/22 21:10 Range/Units Glucometer 217 H 70-110 MG/DL Influenza Type A (RT-PCR) Not Detected Not Detecte Influenza Type B (RT-PCR) Not Detected Not Detecte SARS-CoV-2 RNA (RT-PCR) Not Detected Not Detecte White Blood Count 16.3 H 4.3-11.0 10^3/uL Red Blood Count 4.29 3.80-5.11 10^6/uL Hemoglobin 12.9 11.5-16.0 g/dL Hematocrit 41 35-52 % Mean Corpuscular Volume 96 80-99 fL Mean Corpuscular Hemoglobin 30 25-34 pg Mean Corpuscular Hemoglobin Concent 31 L 32-36 g/dL Red Cell Distribution Width 15.2 H 10.0-14.5 % Platelet Count 212 130-400 10^3/uL Mean Platelet Volume 11.7 9.0-12.2 fL Immature Granulocyte % (Auto) 0 % Neutrophils (%) (Auto) 24 L 42-75 % Lymphocytes (%) (Auto) 72 H 12-44 % Monocytes (%) (Auto) 3 0-12 % Eosinophils (%) (Auto) 1 0-10 % Basophils (%) (Auto) 1 0-10 % Neutrophils # (Auto) 3.9 1.8-7.8 10^3/uL Lymphocytes # (Auto) 11.7 H 1.0-4.0 10^3/uL Monocytes # (Auto) 0.4 0.0-1.0 10^3/uL Eosinophils # (Auto) 0.1 0.0-0.3 10^3/uL Basophils # (Auto) 0.1 0.0-0.1 10^3/uL Immature Granulocyte # (Auto) 0.0 0.0-0.1 10^3/uL Neutrophils % (Manual) 22 % Lymphocytes % (Manual) 76 % Monocytes % (Manual) 1 % Eosinophils % (Manual) 1 % Blood Morphology Comment NORMAL Sodium Level 140 135-145 MMOL/L Potassium Level 4.4 3.6-5.0 MMOL/L Chloride Level 107 98-107 MMOL/L Carbon Dioxide Level 23 21-32 MMOL/L Anion Gap 10 5-14 MMOL/L Blood Urea Nitrogen 25 H 7-18 MG/DL Creatinine 1.07 0.60-1.30 MG/DL Estimat Glomerular Filtration Rate 56 BUN/Creatinine Ratio 23 Glucose Level 179 H 70-105 MG/DL Calcium Level 9.9 8.5-10.1 MG/DL Corrected Calcium 9.6 8.5-10.1 MG/DL Magnesium Level 2.1 1.6-2.4 MG/DL Total Bilirubin 0.8 0.1-1.0 MG/DL Aspartate Amino Transf (AST/SGOT) 18 5-34 U/L Alanine Aminotransferase (ALT/SGPT) 22 0-55 U/L Alkaline Phosphatase 82 40-136 U/L Total Protein 7.2 6.4-8.2 GM/DL Albumin 4.4 3.2-4.5 GM/DL Urine Color YELLOW Urine Clarity SL CLOUDY Urine pH 5.0 5-9 Urine Specific [place] 1.025 H 1.016-1.022 Urine Protein NEGATIVE NEGATIVE Urine Glucose (UA) 3+ H NEGATIVE Urine Ketones NEGATIVE NEGATIVE Urine Nitrite NEGATIVE NEGATIVE Urine Bilirubin NEGATIVE NEGATIVE Urine Urobilinogen 0.2 < = 1.0 MG/DL Urine Leukocyte Esterase NEGATIVE NEGATIVE Urine RBC (Auto) NEGATIVE NEGATIVE Urine RBC NONE /HPF Urine WBC 5-10 H /HPF Urine Squamous Epithelial Cells 5-10 /HPF Urine Crystals NONE /LPF Urine Bacteria NEGATIVE /HPF Urine Casts NONE /LPF Urine Mucus NEGATIVE /LPF Urine Yeast FEW H /HPF Urine Culture Indicated NO My Orders Orders - JAMIE GAMBLE DO Accucheck Stat ONCE (03/17/22 19:56) Ed Iv/Invasive Line Start (03/17/22 19:56) Ekg Tracing (03/17/22 19:56) Monitor-Rhythm Ecg Trace Only (03/17/22 19:56) Cbc With Automated Diff (03/17/22 19:56) Comprehensive Metabolic Panel (03/17/22 19:56) Magnesium (03/17/22 19:56) Ua Culture If Indicated (03/17/22 19:56) Chest 1 View, Ap/Pa Only (03/17/22 19:56) Ct Head Wo-R/O Stroke (03/17/22 19:56) Covid 19 Inhouse Test (03/17/22 20:06) Influenza A And B By Pcr (03/17/22 20:06) Isolation Central Supply Req (03/17/22 20:06) Manual Differential (03/17/22 20:54) Ed Iv/Invasive Line Start (03/17/22 21:43) Ns Iv 1000 Ml (Sodium Chloride 0.9%) (03/17/22 21:45) Vital Signs/I&O 03/17/22 19:53 Temp 36.3 Pulse 82 Resp 16 B/P (MAP) 132/57 (82) Pulse Ox 97 O2 Delivery Room Air Capillary Refill : Point of Care Testing Finger Stick Blood Glucose: 217 Blood Glucose Action Taken: RN AND PHYSICIAN NOTIFIED Progress Note : Progress Note UNEVENTFUL ER STAY VITALS STABLE ECG Initial ECG Impression Date: Mar 17, 2022 Initial ECG Impression Time: 20:16 Initial ECG Rate: 82 Initial ECG Rhythm: Normal Sinus Diagnostic Imaging Comments CT HEAD--PER RADIOLOGIST REPORT AT 2050 Ventricles and sulci are prominent. There is no evidence of intracranial hemorrhage. There is no abnormal mass effect or shift of midline structures. No geographic low density is seen to indicate territorial infarct. Dense atherosclerotic calcification is again seen within distal internal carotid and vertebral arteries. IMPRESSION: Chronic findings without CT evidence of acute intracranial abnormality. Reviewed: Reviewed by Me Departure Impression Primary Impression: Anxiety Additional Impression: Mild dehydration Disposition: HOME, SELF-CARE Condition: Stable Departure-Patient Inst. Decision time for Depature: 22:00 Referrals: [facility] (PCP/Family) Primary Care Physician Patient Instructions: Anxiety, Adult ED, Dehydration, Adult ED, Tips to Help You [place] in Uncertain Times Add. Discharge Instructions: INCREASE YOUR FLUID INTAKE, ESPECIALLY WATER TAKE YOUR REGULAR MEDICATIONS PRESCRIBED FOLLOW UP WITH YOUR DR NEXT WEEK FOR FURTHER CARE All discharge instructions reviewed with patient and/or family. Voiced und erstanding. Scripts Lorazepam (Ativan) 0.5 Mg Tablet 0.5 MG PO TID PRN for ANXIETY, #10 TAB Prov: JAMIE GAMBLE DO 03/17/22 JAMIE GAMBLE DO Mar 17, 2022 20:21
--- NOTE | 2022-03-17 20:49 | Diagnostic Imaging Report ---
PROCEDURE: CT head wo r/o stroke. TECHNIQUE: Multiple contiguous axial images were obtained through the brain without the use of intravenous contrast. Auto Exposure Controls were utilized during the CT exam to meet ALARA standards for radiation dose reduction. INDICATION: Neurologic deficit. COMPARISON: Study of 08/23/2017. Ventricles and sulci are prominent. There is no evidence of intracranial hemorrhage. There is no abnormal mass effect or shift of midline structures. No geographic low density is seen to indicate territorial infarct. Dense atherosclerotic calcification is again seen within distal internal carotid and vertebral arteries. IMPRESSION: Chronic findings without CT evidence of acute intracranial abnormality. Dictated by: Dictated on workstation # [id number]
[2022-03-17 21:00] LABS: BASOPHILS # (AUTO) 0.1 10^3/uL (0.0-0.1); BASOPHILS % (AUTO) 1 % (0-10); EOSINOPHILS # (AUTO) 0.1 10^3/uL (0.0-0.3); EOSINOPHILS % (AUTO) 1 % (0-10); HEMATOCRIT 41 % (35-52); HEMOGLOBIN 12.9 g/dL (11.5-16.0); LYMPHOCYTES # (AUTO) 11.7 10^3/uL (1.0-4.0); LYMPHOCYTES % (AUTO) 72 % (12-44); MEAN CORPUSCULAR HEMOGLOBIN 30 pg (25-34); MEAN CORPUSCULAR HGB CONC 31 g/dL (32-36); MEAN CORPUSCULAR VOLUME 96 fL (80-99); MEAN PLATELET VOLUME 11.7 fL (9.0-12.2); MONOCYTES # (AUTO) 0.4 10^3/uL (0.0-1.0); MONOCYTES % (AUTO) 3 % (0-12); NEUTROPHILS # (AUTO) 3.9 10^3/uL (1.8-7.8); NEUTROPHILS % (AUTO) 24 % (42-75); PLATELET COUNT 212 10^3/uL (130-400); WHITE BLOOD COUNT 16.3 10^3/uL (4.3-11.0)
[2022-03-17 21:08] LABS: ALBUMIN 4.4 GM/DL (3.2-4.5); POTASSIUM 4.4 MMOL/L (3.6-5.0)
[2022-03-17 21:09] LABS: CALCIUM 9.9 MG/DL (8.5-10.1)
[2022-03-17 21:10] LABS: TOTAL PROTEIN 7.2 GM/DL (6.4-8.2)
[2022-03-17 21:12] LABS: BILIRUBIN,TOTAL 0.8 MG/DL (0.1-1.0)
[2022-03-17 21:14] LABS: CREATININE SERUM 1.07 MG/DL (0.60-1.30)
[2022-03-17 21:17] LABS: MAGNESIUM 2.1 MG/DL (1.6-2.4)
[2022-03-17 21:18] LABS: BILIRUBIN,URINE NEGATIVE (NEGATIVE); CLARITY,URINE SL CLOUDY; COLOR,URINE YELLOW; GLUCOSE, URINE (UA) 3+ (NEGATIVE); KETONES,URINE NEGATIVE (NEGATIVE); LEUKOCYTE ESTERASE ,URINE NEGATIVE (NEGATIVE); NITRITE,URINE NEGATIVE (NEGATIVE); PROTEIN,URINE NEGATIVE (NEGATIVE)
--- NOTE | 2022-03-17 21:19 | Diagnostic Imaging Report ---
INDICATION: Hypertension. EXAMINATION: AP view of the chest was obtained. COMPARISON: Study of 09/03/2019. Heart size and pulmonary vascularity are within normal limits. There is no evidence of pneumothorax or consolidation. Numerous surgical clips are seen along the right chest. IMPRESSION: No significant change is detected. Dictated by: Dictated on workstation # [id number]
[2022-03-17 21:37] LABS: BACTERIA,URINE NEGATIVE /HPF; YEAST,URINE FEW /HPF
[2022-03-17] MEDS ORDERED: NS IV 1000 ML 1,000 ML IV SCH (21:45)
[2022-03-17 21:58] LABS: EOSINOPHILS % (MANUAL) 1 %; LYMPHOCYTES % (MANUAL) 76 %; MONOCYTES % (MANUAL) 1 %; NEUTROPHILS % (MANUAL) 22 %; RBC MORPH NORMAL
[2022-03-17] MEDS ORDERED: LORA-404 PO (22:22)
[2022-03-17 22:45] VITALS: BP 140/79
== END 2022-03-17 22:48 | disposition home or self-care (01) ==
LOC: EDUNIT# 19:29 → ER 19:31
DX: F41.9 Anxiety disorder, unspecified (principal); E86.0 Dehydration; Z20.822 Contact with and (suspected) exposure to COVID-19
CPT/HCPCS: 36415; 70450; 71045; 80053; 81000; 82947; 83735; 85007; 85027; 87636; 93005; 93041

== ENCOUNTER 2022-03-18 17:17 | Emergency (ER) | payer MEDICARE ==
[~2022-03-18] VITALS: Ht 162.5 cm; Wt 81.6 kg
[~2022-03-18 17:17] MED LIST changes: +LORA-404 PO
[2022-03-18] MEDS ORDERED: LIDOCAINE/EPI 2% 1:100,00 (XYLOCAINE) 20 ML VIAL INJ ONE (17:45)
[2022-03-18] MEDS ORDERED: TETANUS,DIPTH,PERTUSS P/F (BOOSTRIX) 0.5 ML VIAL IM ONE (17:45)
--- NOTE | 2022-03-18 17:51 | ED Fall/Injury ---
General Chief Complaint: Trauma-Non Activation Stated Complaint: FALL/FACIAL LAC Nursing Triage Note: PT TO RM 3 VIA [facility] AFTER UNWITNESSED FALL AT HOME AT APPROX 1600. PT C/O R SHOULDER PAIN AND BILAT KNEE PAIN. LAC NOTED TO R FOREHEAD, R EYE BRUISED, SKIN TEAR R KNEE. UNK LOC, PT A&OX4. Source: patient Exam Limitations: no limitations History of Present Illness Date Seen by Provider: Mar 18, 2022 Time Seen by Provider: 17:48 Initial Comments This is a 72-year-old female that presents to the emergency room via EMS for evaluation of a fall. She states that she had been dozing off in her chair and when she awoke she wanted to go to the kitchen. Unfortunately, when she got up to go to the kitchen she lost her footing and fell forward, striking her face on the ground. She is unsure if she lost consciousness. She does complain of a head injury and a right shoulder pain along with left knee pain. The patient was fairly distraught over the amount of blood that she feels like she lost during the accident. Her tetanus is not up-to-date. Location Injury Occurred: PT HOME Occurred: just prior to arrival Severity: moderate Injuries/Pain Location: head, upper extremity, lower extremity Context: lost balance Allergies and Home Medications Allergies Coded Allergies: naproxen (Verified Allergy, Mild, KIDNEY ISSUES, 08/28/19) ibuprofen (Verified Allergy, Unknown, 09/01/19) PT REPORTS INSTRUCTED NOT TO TAKE D/T KIDNEY FUNCTION Patient Home Medication List Home Medication List Reviewed: Yes Aspirin (Aspirin) 81 Mg Tab.chew, 81 MG PO DAILY, (Reported) Entered as Reported by: EMELI MCMAHAN on 03/27/18 1347 Atorvastatin Calcium (Atorvastatin Calcium) 40 Mg Tablet, 40 MG PO HS, (Reported) Entered as Reported by: EMELI MCMAHAN on 10/21/15 1230 Cephalexin (Keflex) 500 Mg Capsule, 500 MG PO QID Prescribed by: NAVEEN GARCIA on 09/04/19 1251 Clopidogrel Bisulfate (Clopidogrel) 75 Mg Tablet, 75 MG PO DAILY, (Reported) Entered as Reported by: BARBARA AGUILAR on 09/04/19 0902 Dapagliflozin Propanediol (Farxiga) 10 Mg Tablet, 10 MG PO DAILY, (Reported) Entered as Reported by: EMELI MCMAHAN on 03/27/18 1347 Docusate Sodium (Colace) 100 Mg Capsule, 100 MG PO DAILY, (Reported) Entered as Reported by: JACIEL SCHAEFFER on 08/28/19 1409 Glimepiride (Glimepiride) 2 Mg Tablet, 2 MG PO BID, (Reported) Entered as Reported by: BRIAN MARINELLI on 08/23/17 2111 Insulin Detemir (Levemir Flextouch) 100 Unit/1 Ml Insuln.pen, 80 UNIT SQ DAILY, (Reported) Entered as Reported by: EMELI MCMAHAN on 03/27/18 1347 Letrozole (Letrozole) 2.5 Mg Tablet, 2.5 MG PO DAILY, (Reported) Entered as Reported by: JACIEL SCHAEFFER on 08/28/19 1409 Liraglutide (Victoza 3-Ash) 0.6 Mg/0.1 Ml Pen.injctr, 1.8 MG SC DAILY, (Reported) Entered as Reported by: BARBARA AGUILAR on 09/04/19 0902 Lisinopril (Lisinopril) 40 Mg Tablet, 40 MG PO DAILY, (Reported) Entered as Reported by: EMELI MCMAHAN on 10/21/15 1230 Lorazepam (Ativan) 0.5 Mg Tablet, 0.5 MG PO TID PRN for ANXIETY Prescribed by: JAMIE GAMBLE on 03/17/22 2223 Metoprolol Succinate (Metoprolol Succinate) 25 Mg Tab.er.24h, 12.5 MG PO BID, (Reported) Entered as Reported by: RUFUS WADE on 01/03/16 1402 Tramadol HCl (Ultram) 50 Mg Tablet, 50 MG PO Q6H PRN for PAIN-MODERATE (5-7) Prescribed by: 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 on 07/28/202156 Review of Systems Review of Systems Constitutional: no symptoms reported Eyes: No Symptoms Reported Ears, Nose, Mouth, Throat: no symptoms reported Respiratory: no symptoms reported Cardiovascular: no symptoms reported Musculoskeletal: other (Right shoulder pain, left knee pain) Skin: other (right eyebrow laceration) Psychiatric/Neurological: No Symptoms Reported Past Vnxfsal-Lxlnsi-Gzngsq Hx Immunizations Up To Date Tetanus Booster (TDap): Less than 5yrs Seasonal Allergies Seasonal Allergies: No Past Medical History Surgeries: Yes (RIGHT MASTECTOMY; HYST/BSO 09/01/19;CHOLECYSTECTOMY) Breast, Gallbladder, Hysterectomy, Oophorectomy, 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 Respiratory: No Currently Using CPAP: No Currently Using BIPAP: No Cardiac: Yes (LEFT > RIGHT LEG/ANKLE/FOOT SWELLING) Chronic Edema/Swelling, Coronary Artery Disease, High Cholesterol, Hypertension Neurological: Yes (CVA RIGHT SIDE WEAKNESS-RESOLVED; MEMORY IMPAIRMENT) Stroke Reproductive Disorders: Yes (D&C 1999 FOR HEAVY MENSTRUAL BLEEDING; HYST/BSO 09/01/19 ) 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, 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 Sexually Transmitted Disease: No HIV/AIDS: No Genitourinary: Yes (HX-LABS HAVE IMPROVED; NO DIALYSIS) Renal Failure Gastrointestinal: Yes Gastroesophageal Reflux, Chronic Constipation Musculoskeletal: Yes Arthritis Endocrine: Yes Diabetes, Insulin dep HEENT: No (READING GLASSES) Loss of Vision: Denies Hearing Impairment: Denies Cancer: Yes (B CELL CHRONIC LYMPHOCYTIC LEUKEMIA;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/2018 ) Leukemia, Breast, Uterine Did You Recieve Any Treatments: Yes What Type of Treatment Did You: Chemotherapy, Surgical Intervention Psychosocial: No Integumentary: No Blood Disorders: No Adverse Reaction/Blood Tranf: No (N/A) Family Medical History Abdominal aortic aneurysm Alzheimer's disease Arthritis Cardiovascular disease Cataracts Completed stroke Dementia Diabetes mellitus Hypercholesterolemia Hypertension Myocardial infarction Neoplasm Psychosocial problem Thyroid disease PSH: -BTL 1978 -D&C 1999 FOR HEAVY MENTSTURAL BLEEDING -COLONOSCOPY -RIGHT AXILLARY LUMPECTOMY 2015 -RIGHT MASTECTOMY 05/2018 -RA-LAPAROSCOPIC HYST/BSO 09/01/19 FOR POST MENOPAUSAL BLEEDING/ENDOMETRIAL HYPERPLASIA Physical Exam Vital Signs Vital Signs - First Documented 03/18/22 17:20 Temp 36.9 Pulse 70 Resp 16 B/P (MAP) 108/77 (87) Pulse Ox 96 O2 Delivery Room Air Capillary Refill : Less Than 3 Seconds Height, Weight, BMI Height: 5'4.00" Weight: 190lbs. 8.0oz. 86.933393um; 30.00 BMI Method:Stated General Appearance: WD/WN, no apparent distress HEENT: PERRL/EOMI, other (laright frontal hematoma to right side of scalp. Overlying 3.5cm laceration that is gaping. ) Neck: tender midline Cardiovascular: no edema Respiratory: chest non-tender, lungs clear Gastrointestinal: normal bowel sounds, soft Back: normal inspection Extremities: other (ttp right shoulder, limited ROM. Swelling and ttp to left knee. 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, no motor/sensory deficits, alert, oriented x 3 Skin: normal color Lymphatic: no adenopathy [place] Coma Score Best Eye Response: (4) Open Spontaneously Best Verbal Response: (5) Oriented Best Motor Response: (6) Obeys Commands Progress/Results/Core Measures Results/Orders Lab Results Laboratory Tests Test 03/18/22 19:41 Range/Units My Orders Orders - SASHA BANEGAS Lidocaine/Epi 2% 1:100,000 (Xylocaine/Ep (03/18/22 17:45) Shoulder, Right, 3 Views (03/18/22 17:39) Knee, Left, 4 Views Or > (03/18/22 17:39) Ct Head/Cervical Spine Wo (03/18/22 17:39) Dipht,Pertuss(Acell),Tet Adult (Boostrix (03/18/22 17:45) Lidocaine/Epi Mpf 2% 1:200,000 (Xylocain (03/18/22 17:58) Morphine Injection (Morphine Injection (03/18/22 18:05) Lorazepam Tablet (Ativan Tablet) (03/18/22 18:17) Protime With Inr (03/18/22 19:13) Ed Iv/Invasive Line Start (03/18/22 19:13) Cbc With Automated Diff (03/18/22 19:13) Comprehensive Metabolic Panel (03/18/22 19:13) Medications Given in ED Current Medications Medications Dose Ordered Sig/Sherrie Route Start Time Stop Time Status Last Admin Dose Admin Diphtheria/ Tetanus/Acell Pertussis 0.5 ml ONCE ONCE IM 03/18/22 17:45 03/18/22 17:47 DC 03/18/22 18:03 0.5 ML Lidocaine/ Epinephrine 10 ml STK-MED ONCE .ROUTE 03/18/22 17:58 03/18/22 18:00 DC 03/18/22 18:53 10 ML Vital Signs/I&O 03/18/22 17:20 Temp 36.9 Pulse 70 Resp 16 B/P (MAP) 108/77 (87) Pulse Ox 96 O2 Delivery Room Air Blood Pressure Mean: 87 Departure Communication (Admissions) Patient to be transferred to [facility] for further care Impression Primary Impression: Comminuted fracture of humerus Additional Impressions: Hemarthrosis Scalp laceration Scalp hematoma Disposition: XFER SHT-TRM HOSP Condition: Stable Transfer Transfer Reason: Exceeds level of care Time Spoke to Accepting Phy: 19:49 Transfer Progress Notes I spoke to Dr. Muniz at [facility] in [place], [place]. He agrees that this patient would need surgical intervention. We will transfer to the [facility] emergency room. I spoke to Dr. Gomez and he accepts transfer to the emergency room. Transfer Time: 19:55 Transfer Facility: [facility] Departure-Patient Inst. Referrals: [facility] (PCP/Family) Primary Care Physician SASHA BANEGAS Mar 18, 2022 17:51
[2022-03-18] MEDS ORDERED: LIDOCAINE/EPI 2% 1:200,00 (XYLOCAINE) 10 ML VIAL ONE (17:58)
[2022-03-18] MEDS ORDERED: morphine INJ 10 MG/ML 1ML (SYR OR VIAL) IM STA (18:05)
[2022-03-18] MEDS ORDERED: LORazepam 0.5 MG (ATIVAN) TABLET PO STA (18:17)
--- NOTE | 2022-03-18 18:28 | Diagnostic Imaging Report ---
PROCEDURE: CT head and CT cervical spine without contrast. TECHNIQUE: Multiple contiguous axial images were obtained through the brain and cervical spine without the use of intravenous contrast. Sagittal and coronal reformations through the cervical spine were then performed. Auto Exposure Controls were utilized during the CT exam to meet ALARA standards for radiation dose reduction. INDICATION: Head and neck injury. COMPARISON: 03/17/2022. FINDINGS: CT HEAD: Ventricles and sulci are stable. No intracranial hemorrhage is identified. There is no evidence of calvarial fracture. There is a large right periorbital and right frontal scalp hematoma which has developed since the previous study. No paranasal sinus air-fluid level is seen. IMPRESSION: Prominent acute right periorbital and frontal scalp hematoma. Otherwise, there is no CT evidence of acute intracranial abnormality. CT CERVICAL SPINE: Cervical spinal curvature and alignment are unremarkable. Prominent bridging anterior osteophytes extend from C3 through C7. There is no evidence of acute fracture or subluxation. No paraspinous hematoma is identified. IMPRESSION: Advanced degenerative findings in the cervical spine with acute cervical spinal abnormality detected. Dictated by: Dictated on workstation # [id number]
--- NOTE | 2022-03-18 18:54 | Diagnostic Imaging Report ---
INDICATION: Fall with right shoulder injury. FINDINGS: AP, oblique and transscapular views of right shoulder reveal comminuted displaced fracture through the right humeral head and neck. Major head fragment appears to remain within articulation of the glenoid process although there is inferior displacement which may be due to hemarthrosis. No definite scapular or clavicular fracture is seen. IMPRESSION: Displaced comminuted proximal humeral fracture with associated hemarthrosis. Dictated by: Dictated on workstation # [id number]
--- NOTE | 2022-03-18 18:55 | Diagnostic Imaging Report ---
INDICATION: Fall with left knee pain and swelling. FINDINGS: AP, oblique, lateral and sunrise views of left knee reveal moderate marginal spurring about the knee joint compartments. There is dystrophic calcification along the lateral collateral ligament. There is focal lucency at the base of the superior patellar enthesophyte with fluid in the joint space. IMPRESSION: Rather advanced degenerative findings in the left knee with possible suprapatellar spur fracture. There is no significant displacement although there is probable associated hemarthrosis. Dictated by: Dictated on workstation # [id number]
[2022-03-18 19:50] LABS: BASOPHILS # (AUTO) 0.1 10^3/uL (0.0-0.1); BASOPHILS % (AUTO) 0 % (0-10); EOSINOPHILS % (AUTO) 0 % (0-10); HEMATOCRIT 37 % (35-52); HEMOGLOBIN 11.9 g/dL (11.5-16.0); LYMPHOCYTES # (AUTO) 12.9 10^3/uL (1.0-4.0); LYMPHOCYTES % (AUTO) 54 % (12-44); MEAN CORPUSCULAR HEMOGLOBIN 30 pg (25-34); MEAN CORPUSCULAR HGB CONC 32 g/dL (32-36); MEAN CORPUSCULAR VOLUME 95 fL (80-99); MEAN PLATELET VOLUME 11.6 fL (9.0-12.2); MONOCYTES # (AUTO) 0.5 10^3/uL (0.0-1.0); MONOCYTES % (AUTO) 2 % (0-12); NEUTROPHILS # (AUTO) 10.3 10^3/uL (1.8-7.8); NEUTROPHILS % (AUTO) 43 % (42-75); PLATELET COUNT 235 10^3/uL (130-400); WHITE BLOOD COUNT 23.9 10^3/uL (4.3-11.0)
[2022-03-18 20:00] LABS: PROTHROMBIN TIME PATIENT 14.1 SEC (12.2-14.7)
[2022-03-18 20:09] LABS: ALBUMIN 4.3 GM/DL (3.2-4.5); BILIRUBIN,TOTAL 0.7 MG/DL (0.1-1.0); CALCIUM 9.6 MG/DL (8.5-10.1); CREATININE SERUM 1.02 MG/DL (0.60-1.30); POTASSIUM 4.2 MMOL/L (3.6-5.0)
[2022-03-18 20:16] LABS: BAND NEUTROPHILS 2 %; LYMPHOCYTES % (MANUAL) 52 %; MONOCYTES % (MANUAL) 2 %; NEUTROPHILS % (MANUAL) 44 %; RBC MORPH NORMAL
[2022-03-18 20:19] VITALS: BP 104/50
== END 2022-03-18 21:01 | disposition short-term general hospital (02) ==
LOC: EDUNIT# 17:17 → ER 17:19
DX: S42.351A Displaced comminuted fracture of shaft of humerus, right arm, initial encounter for closed fracture (principal); S01.01XA Laceration without foreign body of scalp, initial encounter; M25.562 Pain in left knee; E11.9 Type 2 diabetes mellitus without complications; Z79.4 Long term (current) use of insulin; W07.XXXA Fall from chair, initial encounter
CPT/HCPCS: 36415; 70450; 72125; 73030; 73564; 80053; 85007; 85027; 85610; 90715

== ENCOUNTER 2022-05-04 14:33 | Outpatient (RCR) | payer MEDICARE, MEDICAID | END 2022-05-05 | disposition home or self-care (01) | PROVIDERS: ATTEND Orthopaedic Surgery | DX: M25.511 Pain in right shoulder (principal); Z96.611 Presence of right artificial shoulder joint ==

== ENCOUNTER → 2022-06-05 | Outpatient (RCR) | payer MEDICARE, MEDICAID | END | disposition home or self-care (01) | PROVIDERS: ATTEND Orthopaedic Surgery | DX: Z96.611 Presence of right artificial shoulder joint (principal); E11.9 Type 2 diabetes mellitus without complications ==

== ENCOUNTER 2022-06-07 12:52 | Outpatient (RCR) | payer MEDICARE, MEDICAID | END 2022-07-05 | disposition home or self-care (01) | PROVIDERS: ATTEND Orthopaedic Surgery | DX: M25.511 Pain in right shoulder (principal); E11.9 Type 2 diabetes mellitus without complications; Z96.611 Presence of right artificial shoulder joint ==

== ENCOUNTER → 2022-09-12 | Outpatient (CLI) | payer MEDICARE, MEDICAID ==
--- NOTE | 2022-09-12 16:11 | Diagnostic Imaging Report ---
INDICATION: Routine screening. Comparison is made with prior mammogram 04/08/2021 and 04/06/2020. Unilateral left 2-D and 3-D diagnostic screening mammography was performed with CAD. Scattered fibroglandular densities are identified in the left breast. No mass or malignant-appearing microcalcifications are seen. Left axilla is unremarkable. IMPRESSION: No mammographic features suspicious for malignancy are identified. ACR BI-RADS Category 1: Negative. Result letter will be mailed to the patient. Note: At least 10% of breast cancer is not imaged by mammography. BI-RADS Category 1 Dictated by: Dictated on workstation # [id number]
--- NOTE | 2022-09-12 17:11 | Diagnostic Imaging Report ---
INDICATION: Postmenopausal screening for osteoporosis COMPARISON: 08/31/2020 FINDINGS: AP Spine L1-L4: [BMD (g/cm2): 1.132] [T-Score: -0.6] [Z-Score: 0.7] [BMD Previous: 1.156] [BMD % Change: -2.1] LT Hip Neck: [BMD (g/cm2): 0.883] [T-Score: -1.1] [Z-Score: 0.4] LT Hip Total: [BMD (g/cm2):0.909] [T-Score:-0.8] [Z-Score: .5] [BMD Previous: 0.954] [BMD % Change: -4.7] RT Hip Neck: [BMD (g/cm2):1.033] [T-Score:0.0] [Z-Score:1.4] RT Hip Total: [BMD (g/cm2):0.926] [T-score:-0.6] [Z-Score:0.6] [BMD Previous:0.977] [BMD % Change:-5.2] *Indicates significant change from prior examination based on 95% confidence level. World Health Organization criteria for BMD interpretation classify patients as Normal (T-score at or above -1.0), Osteopenic (T-score between -1.0 and -2.5) or Osteoporotic (T-score at or below -2.5). LIMITATIONS AND MODIFICATION: None. FRACTURE RISK (FRAX SCORE): The ten year probability of (%): Major Osteoporotic Fracture: [14.4] Hip Fracture: [1.7] IMPRESSION: 1. Normal bone mineral density. 2. Bone mineral density of the hips has decreased by a statistically significant amount, as detailed above. 3. See below National Osteoporosis Foundation guidelines on when to potentially initiate pharmacologic therapy. Based on the National Osteoporosis Foundation Guidelines, pharmacologic treatment should be initiated in any of the following, unless clinical conditions suggest otherwise: * Any patient with prior fragility fracture of the hip or vertebrae. A spine fracture indicates 5X risk for subsequent spine fracture and 2X risk for subsequent hip fracture. * Osteoporosis (T-score <-2.5). * Postmenopausal women and men age 50 and older with low bone mass/osteopenia (T-score between -1.0 and -2.5) by DXA and 10-year major osteoporotic fracture greater than 20% or a 10-year probability of hip fracture greater than 3%. These fracture risks are supplied above in the FRAX score, if applicable. * Clinician judgement and/or patient preferences may indicate treatment for people with 10-year fracture probabilities above or below these levels. Dictated by: Dictated on workstation # [id number]
== END ==
LOC: RAD 12:30
PROVIDERS: ATTEND Nurse Practitioner Adult Health
DX: Z12.31 Encounter for screening mammogram for malignant neoplasm of breast (principal); Z13.820 Encounter for screening for osteoporosis; Z78.0 Asymptomatic menopausal state; Z79.811 Long term (current) use of aromatase inhibitors
CPT/HCPCS: 77063; 77080

== ENCOUNTER 2022-11-09 21:59 | Emergency (ER) | payer MEDICARE, MEDICAID ==
[~2022-11-09] VITALS: Ht 164 cm; Wt 77.7 kg
[~2022-11-09 21:59] MED LIST changes: -INSU100I29 SQ; +INSU100I30 SQ
[2022-11-09] MEDS ORDERED: INSU100I88 (22:17)
[2022-11-09] MEDS ORDERED: MIRT-68 (22:17)
[2022-11-09] MEDS ORDERED: DULA1.5P2 (22:17)
[2022-11-09] MEDS ORDERED: BUSP15TA60 (22:17)
[2022-11-09] MEDS ORDERED: SERT-413 (22:17)
[2022-11-09] MEDS ORDERED: TRZ50T (22:17)
[2022-11-09] MEDS ORDERED: ONDA-105 (22:17)
[2022-11-09] MEDS ORDERED: ONDANSETRON 4 MG/2 ML (SDV) Z0FRAN IVP ONE (22:30)
[2022-11-09] MEDS ORDERED: LACTATED RINGERS 1,000 ML IV ONE (22:30)
[2022-11-09 22:39] LABS: BASOPHILS # (AUTO) 0.1 10^3/uL (0.0-0.1); BASOPHILS % (AUTO) 1 % (0-10); EOSINOPHILS # (AUTO) 0.1 10^3/uL (0.0-0.3); EOSINOPHILS % (AUTO) 1 % (0-10); HEMATOCRIT 40 % (35-52); HEMOGLOBIN 13.2 g/dL (11.5-16.0); LYMPHOCYTES % (AUTO) 79 % (12-44); MEAN CORPUSCULAR HEMOGLOBIN 31 pg (25-34); MEAN CORPUSCULAR HGB CONC 33 g/dL (32-36); MEAN CORPUSCULAR VOLUME 93 fL (80-99); MEAN PLATELET VOLUME 11.2 fL (9.0-12.2); MONOCYTES # (AUTO) 0.4 10^3/uL (0.0-1.0); MONOCYTES % (AUTO) 2 % (0-12); NEUTROPHILS # (AUTO) 3.3 10^3/uL (1.8-7.8); NEUTROPHILS % (AUTO) 18 % (42-75); PLATELET COUNT 231 10^3/uL (130-400); WHITE BLOOD COUNT 18.9 10^3/uL (4.3-11.0)
[2022-11-09 22:56] LABS: BAND NEUTROPHILS 78 %; LYMPHOCYTES % (MANUAL) 2 %; NEUTROPHILS % (MANUAL) 20 %; RBC MORPH NORMAL
[2022-11-09 23:07] LABS: ALANINE AMINOTRANSFERASE 27 U/L (0-55); ALBUMIN 4.5 GM/DL (3.2-4.5); ALKALINE PHOSPHATASE 84 U/L (40-136); AMYLASE 58 U/L (25-125); BILIRUBIN,TOTAL 0.6 MG/DL (0.1-1.0); BUN/CREATININE RATIO 19; CALCIUM 9.6 MG/DL (8.5-10.1); CARBON DIOXIDE 19 MMOL/L (21-32); CHLORIDE 106 MMOL/L (98-107); CREATININE SERUM 0.85 MG/DL (0.60-1.30); GFR ESTIMATED 73; GLUCOSE 155 MG/DL (70-105); LIPASE 29 U/L (8-78); MAGNESIUM 1.8 MG/DL (1.6-2.4); POTASSIUM 3.9 MMOL/L (3.6-5.0); SODIUM 138 MMOL/L (135-145); TOTAL PROTEIN 7.1 GM/DL (6.4-8.2)
[2022-11-09 23:52] LABS: CLARITY,URINE SL CLOUDY; COLOR,URINE YELLOW; GLUCOSE, URINE (UA) 3+ (NEGATIVE); KETONES,URINE 1+ (NEGATIVE); LEUKOCYTE ESTERASE ,URINE NEGATIVE (NEGATIVE); NITRITE,URINE NEGATIVE (NEGATIVE); PH,URINE 5.5 (5-9); PROTEIN,URINE NEGATIVE (NEGATIVE)
--- NOTE | 2022-11-09 23:57 | ED GI ---
General Chief Complaint: Abdominal/GI Problems Stated Complaint: FEELS VERY FAINT \\ FLU Nursing Triage Note: ABDOMINAL CRAMPING X3 DAYS, NAUSEA, DIZZINESS, DECREASED PO INTAKE X2 DAYS. GENERALIZED MALAISE. Source of Information: Patient (LIMITED HISTORIAN) History of Present Illness Date Seen by Provider: Nov 09, 2022 Time Seen by Provider: 22:25 Initial Comments PT ARRIVES VIA POV FROM HOME SHE STATES FOR THE LAST 2-3 DAYS SHE HAS HAD: -SEVERE ABDOMINAL PAIN--STATES IT WAS REALLY BAD LAST NIGHT, IS NOT BAD TODAY -NAUSEA AND DRY HEAVES -SUBJECTIVE FEVER/SWEATS/CHILLS -DIZZINESS -DECREASED APPETITE, DECREASED INTAKE FOR THE LAST 2-3 DAYS -MALAISE, GENERALIZED WEAKNESS NO DIARRHEA URINATING OK SHE WAS SEEN AT [facility] TODAY AND HER PSYCH MEDICATIONS WERE CHANGED--STARTED ON MIRTAZAPINE, AND WAS GIVEN RX FOR ZOFRAN SHE TOOK 1 ZOFRAN TONIGHT, STATES IT HELPED HER NAUSEA AND PAIN PT HAS HAD PRIOR CHOLECYSTECTOMY, HYSTERECTOMY, RIGHT MASTECTOMY SHE IS INSULIN DEPENDENT DIABETIC, CHRONIC KIDNEY DISEASE, HTN, HYPERLIPIDEMIA, BREAST CANCER, B-CELL CLL, PSYCH ISSUES PCP: [facility] PSYCH: [facility] Allergies and Home Medications Allergies Coded Allergies: naproxen (Verified Allergy, Mild, KIDNEY ISSUES, 08/28/19) ibuprofen (Verified Allergy, Unknown, 09/01/19) PT REPORTS INSTRUCTED NOT TO TAKE D/T KIDNEY FUNCTION Patient Home Medication List Aspirin (Aspirin) 81 Mg Tab.chew, 81 MG PO DAILY, (Reported) Entered as Reported by: EMELI MCMAHAN on 03/27/18 1347 Atorvastatin Calcium (Atorvastatin Calcium) 40 Mg Tablet, 40 MG PO HS, (Reported) Entered as Reported by: EMELI MCMAHAN on 10/21/15 1230 Buspirone HCl (Buspirone HCl) 15 Mg Tablet, (Reported) Entered as Reported by: BRIAN MARINELLI on 11/09/22 2217 Last Action: New Order Cephalexin (Keflex) 500 Mg Capsule, 500 MG PO QID Prescribed by: NAVEEN GARCIA on 09/04/19 1251 Clopidogrel Bisulfate (Clopidogrel) 75 Mg Tablet, 75 MG PO DAILY, (Reported) Entered as Reported by: BARBARA AGUILAR on 09/04/19 0902 Dapagliflozin Propanediol (Farxiga) 10 Mg Tablet, 10 MG PO DAILY, (Reported) Entered as Reported by: EMELI MCMAHAN on 03/27/18 1347 Docusate Sodium (Colace) 100 Mg Capsule, 100 MG PO DAILY, (Reported) Entered as Reported by: JACIEL SCHAEFFER on 08/28/19 1409 Dulaglutide (Trulicity) 1.5 Mg/0.5 Ml Pen.injctr, (Reported) Entered as Reported by: BRIAN MARINELLI on 11/09/222216 Last Action: New Order Glimepiride (Glimepiride) 2 Mg Tablet, 2 MG PO BID, (Reported) Entered as Reported by: BRIAN MARINELLI on 08/23/172110 Insulin Detemir (Levemir Flextouch) 100 Unit/1 Ml Insuln.pen, 80 UNIT SQ DAILY, (Reported) Entered as Reported by: EMELI MCMAHAN on 03/27/18 1347 Insulin Detemir (Levemir Flexpen) 100 Unit/Ml (3 Ml) Insuln.pen, (Reported) Entered as Reported by: BRIAN MARINELLI on 11/09/222216 Last Action: New Order Letrozole (Letrozole) 2.5 Mg Tablet, 2.5 MG PO DAILY, (Reported) Entered as Reported by: JACIEL SCHAEFFER on 08/28/19 140 Liraglutide (Victoza 3-Ash) 0.6 Mg/0.1 Ml Pen.injctr, 1.8 MG SC DAILY, (Reported) Entered as Reported by: BARBARA AGUILAR on 09/04/19 0902 Lisinopril (Lisinopril) 40 Mg Tablet, 40 MG PO DAILY, (Reported) Entered as Reported by: EMELI MCMAHAN on 10/21/15 1230 Lorazepam (Ativan) 0.5 Mg Tablet, 0.5 MG PO TID PRN for ANXIETY Prescribed by: JAMIE GAMBLE on 03/17/22 2223 Metoprolol Succinate (Metoprolol Succinate) 25 Mg Tab.er.24h, 12.5 MG PO BID, (Reported) Entered as Reported by: RUFUS WADE on 01/03/16 1402 Mirtazapine (Mirtazapine) 15 Mg Tablet, (Reported) Entered as Reported by: BRIAN MARINELLI on 11/09/222216 Last Action: New Order Ondansetron HCl (Ondansetron HCl) 4 Mg Tablet, (Reported) Entered as Reported by: BRIAN MARINELLI on 11/09/222216 Last Action: New Order Sertraline HCl (Sertraline HCl) 50 Mg Tablet, (Reported) Entered as Reported by: BRIAN MARINELLI on 11/09/222216 Last Action: New Order Tramadol HCl (Ultram) 50 Mg Tablet, 50 MG PO Q6H PRN for PAIN-MODERATE (5-7) Prescribed by: 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 on 07/28/202156 Trazodone HCl (Trazodone HCl) 50 Mg Tablet, (Reported) Entered as Reported by: BRIAN MARINELLI on 11/09/222216 Last Action: New Order Review of Systems Review of Systems Constitutional: see HPI, chills, diaphoresis, dizziness, fever, malaise, weakness EENTM: No Symptoms Reported Respiratory: No Symptoms Reported Cardiovascular: No Symptoms Reported Gastrointestinal: See HPI, Abdominal Pain; Denies Constipated, Denies Diarrhea; Nausea, Poor Appetite, Poor Fluid Intake, Vomiting (DRY HEAVES) Genitourinary: No Symptoms Reported Musculoskeletal: no symptoms reported Skin: no symptoms reported Psychiatric/Neurological: Anxiety Endocrine: No Symptoms Reported Hematologic/Lymphatic: No Symptoms Reported Past Qshttby-Exxkwa-Ibnksu Hx Patient Social History Tobacco Use?: No Substance use?: No Alcohol Use?: No Pt feels they are or have been: No Immunizations Up To Date Tetanus Booster (TDap): Less than 5yrs First/Initial COVID19 Vaccinat: X2 Seasonal Allergies Seasonal Allergies: No Past Medical History Surgery/Hospitalization HX: MASECTOMY, HYSTERECTOMY, CHOLECYSTECTOMY PMH; DM2, BREAST CANCER, CKD, DEPRESSION, ANXIETY, HLD,HIGH CHOLESTEROL, HTN Surgeries: Yes (RIGHT MASTECTOMY; HYST/BSO 09/01/19;CHOLECYSTECTOMY) Breast, Gallbladder, Hysterectomy, Oophorectomy, 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 Respiratory: No Currently Using CPAP: No Currently Using BIPAP: No Cardiac: Yes (LEFT > RIGHT LEG/ANKLE/FOOT SWELLING) Chronic Edema/Swelling, Coronary Artery Disease, High Cholesterol, Hypertension Neurological: Yes (CVA RIGHT SIDE WEAKNESS-RESOLVED; MEMORY IMPAIRMENT) Stroke Reproductive Disorders: Yes (D&C 2000 FOR HEAVY MENSTRUAL BLEEDING; HYST/BSO 09/01/19 ) Female Reproductive Disorders: 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, 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 Sexually Transmitted Disease: No HIV/AIDS: No Genitourinary: Yes (HX-LABS HAVE IMPROVED; NO DIALYSIS) Renal Failure Gastrointestinal: Yes Gastroesophageal Reflux, Chronic Constipation Musculoskeletal: Yes Arthritis Endocrine: Yes Diabetes, Insulin dep HEENT: No (READING GLASSES) Loss of Vision: Denies Hearing Impairment: Denies Cancer: Yes (B CELL CHRONIC LYMPHOCYTIC LEUKEMIA;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/2018 ) Leukemia, Breast, Uterine Did You Recieve Any Treatments: Yes What Type of Treatment Did You: Chemotherapy, Surgical Intervention Psychosocial: No Integumentary: No Blood Disorders: No Adverse Reaction/Blood Tranf: No (N/A) Family Medical History Abdominal aortic aneurysm Alzheimer's disease Arthritis Cardiovascular disease Cataracts Completed stroke Dementia Diabetes mellitus Hypercholesterolemia Hypertension Myocardial infarction Neoplasm Psychosocial problem Thyroid disease PSH: -BTL 1978 -D&C 1999 FOR HEAVY MENTSTURAL BLEEDING -COLONOSCOPY -RIGHT AXILLARY LUMPECTOMY 2015 -RIGHT MASTECTOMY 05/2018 -RA-LAPAROSCOPIC HYST/BSO 09/01/19 FOR POST MENOPAUSAL BLEEDING/ENDOMETRIAL HYPERPLASIA Physical Exam Vital Signs Vital Signs - First Documented 11/09/22 22:06 Temp 36.6 Pulse 79 Resp 16 B/P (MAP) 108/68 (81) Pulse Ox 95 O2 Delivery Room Air Capillary Refill : Less Than 3 Seconds Height/Weight/BMI Height: 5'4.00" Weight: 190lbs. 8.0oz. 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 as tested, no motor/sensory deficits, alert, oriented x 3, other (ANXIOUS) Skin: normal color, warm/dry; No rash Focused Exam Sepsis Stage: Ruled Out Reason for ruling out sepsis: DOES NOT MEET CRITERIA Possible Source: GI Tract/Intra-Abdominal Respiratory: Normal Breath Sounds, No Accessory Muscle Use, No Respiratory Distress Cardiovascular: Regular Rate, Rhythm, No Edema, No Murmur Capillary Refill: Less Than 3 Seconds Skin: normal color, warm/dry Within 3hrs of presentation: Admin fluids, Admin ABX, Blood cultures prior to ABX's, Focus exam, Lactate level Progress/Results/Core Measures Results/Orders Lab Results Laboratory Tests Test 11/09/22 22:30 11/09/22 23:45 Range/Units White Blood Count 18.9 H 4.3-11.0 10^3/uL Red Blood Count 4.30 3.80-5.11 10^6/uL Hemoglobin 13.2 11.5-16.0 g/dL Hematocrit 40 35-52 % Mean Corpuscular Volume 93 80-99 fL Mean Corpuscular Hemoglobin 31 25-34 pg Mean Corpuscular Hemoglobin Concent 33 32-36 g/dL Red Cell Distribution Width 13.7 10.0-14.5 % Platelet Count 231 130-400 10^3/uL Mean Platelet Volume 11.2 9.0-12.2 fL Immature Granulocyte % (Auto) 0 % Neutrophils (%) (Auto) 18 L 42-75 % Lymphocytes (%) (Auto) 79 H 12-44 % Monocytes (%) (Auto) 2 0-12 % Eosinophils (%) (Auto) 1 0-10 % Basophils (%) (Auto) 1 0-10 % Neutrophils # (Auto) 3.3 1.8-7.8 10^3/uL Lymphocytes # (Auto) 15.0 H 1.0-4.0 10^3/uL Monocytes # (Auto) 0.4 0.0-1.0 10^3/uL Eosinophils # (Auto) 0.1 0.0-0.3 10^3/uL Basophils # (Auto) 0.1 0.0-0.1 10^3/uL Immature Granulocyte # (Auto) 0.0 0.0-0.1 10^3/uL Neutrophils % (Manual) 20 % Lymphocytes % (Manual) 2 % Band Neutrophils 78 % Blood Morphology Comment NORMAL Sodium Level 138 135-145 MMOL/L Potassium Level 3.9 3.6-5.0 MMOL/L Chloride Level 106 98-107 MMOL/L Carbon Dioxide Level 19 L 21-32 MMOL/L Anion Gap 13 5-14 MMOL/L Blood Urea Nitrogen 16 7-18 MG/DL Creatinine 0.85 0.60-1.30 MG/DL Estimat Glomerular Filtration Rate 73 BUN/Creatinine Ratio 19 Glucose Level 155 H 70-105 MG/DL Calcium Level 9.6 8.5-10.1 MG/DL Corrected Calcium 9.2 8.5-10.1 MG/DL Magnesium Level 1.8 1.6-2.4 MG/DL Total Bilirubin 0.6 0.1-1.0 MG/DL Aspartate Amino Transf (AST/SGOT) 23 5-34 U/L Alanine Aminotransferase (ALT/SGPT) 27 0-55 U/L Alkaline Phosphatase 84 40-136 U/L Total Protein 7.1 6.4-8.2 GM/DL Albumin 4.5 3.2-4.5 GM/DL Amylase Level 58 25-125 U/L Lipase 29 8-78 U/L Serum Alcohol < 10 <10 MG/DL Urine Color YELLOW Urine Clarity SL CLOUDY Urine pH 5.5 5-9 Urine Specific Howard >=1.030 1.016-1.022 Urine Protein NEGATIVE NEGATIVE Urine Glucose (UA) 3+ H NEGATIVE Urine Ketones 1+ H NEGATIVE Urine Nitrite NEGATIVE NEGATIVE Urine Bilirubin 1+ H NEGATIVE Urine Urobilinogen 1.0 < = 1.0 MG/DL Urine Leukocyte Esterase NEGATIVE NEGATIVE Urine RBC (Auto) NEGATIVE NEGATIVE Urine RBC NONE /HPF Urine WBC 2-5 /HPF Urine Squamous Epithelial Cells 0-2 /HPF Urine Crystals NONE /LPF Urine Bacteria NEGATIVE /HPF Urine Casts NONE /LPF Urine Mucus MODERATE H /LPF Urine Yeast LARGE H /HPF Urine Culture Indicated YES Urine Opiates Screen NEGATIVE NEGATIVE Urine Oxycodone Screen NEGATIVE NEGATIVE Urine Methadone Screen NEGATIVE NEGATIVE Urine Propoxyphene Screen NEGATIVE NEGATIVE Urine Barbiturates Screen NEGATIVE NEGATIVE Ur Tricyclic Antidepressants Screen NEGATIVE NEGATIVE Urine Phencyclidine Screen NEGATIVE NEGATIVE Urine Amphetamines Screen NEGATIVE NEGATIVE Urine Methamphetamines Screen NEGATIVE NEGATIVE Urine Benzodiazepines Screen NEGATIVE NEGATIVE Urine Cocaine Screen NEGATIVE NEGATIVE Urine Cannabinoids Screen NEGATIVE NEGATIVE My Orders Orders - JAMIE GAMBLE DO Ed Iv/Invasive Line Start (11/09/22 22:25) Monitor-Rhythm Ecg Trace Only (11/09/22 22:25) Alcohol (11/09/22 22:25) Amylase (11/09/22 22:25) Cbc With Automated Diff (11/09/22 22:25) Comprehensive Metabolic Panel (11/09/22 22:25) Drug Screen Stat (Urine) (11/09/22 22:25) Lipase (11/09/22 22:25) Magnesium (11/09/22 22:25) Ua Culture If Indicated (11/09/22 22:25) Ed Iv/Invasive Line Start (11/09/22 22:25) Lactated Ringers (Lr 1000 Ml Iv Solution (11/09/22 22:30) Ondansetron Injection (Zofran Injectio (11/09/22 22:30) Ct Abdomen/Pelvis Wo (11/09/22 22:25) Manual Differential (11/09/22 22:30) Urine Culture (11/09/22 23:45) Medications Given in ED Current Medications Medications Dose Ordered Sig/Sherrie Route Start Time Stop Time Status Last Admin Dose Admin Lactated Ringer's 1,000 ml @ 0 mls/hr Q0M ONCE IV 11/09/22 22:30 11/09/22 22:31 DC 11/09/22 22:37 1,000 MLS/HR Vital Signs/I&O 11/09/22 22:06 Temp 36.6 Pulse 79 Resp 16 B/P (MAP) 108/68 (81) Pulse Ox 95 O2 Delivery Room Air Blood Pressure Mean: 81 Progress Progress Note : Progress Note MARKED DELAY IN OBTAINING CT REPORT Departure Impression Primary Impression: Abdominal pain Additional Impression: Gastroenteritis Disposition: 01 HOME, SELF-CARE Condition: Improved Departure-Patient Inst. Decision time for Depature: 02:34 Referrals: DARCY HAAS JR, MD (PCP) Primary Care Physician CATALINO PEREZ DO [facility] Patient Instructions: [id number] Add. Discharge Instructions: CLEAR LIQUIDS--WATER, BROTH, JELLO, GATORADE BRATS DIET--BANANAS, RICE, APPLESAUCE, TOAST, SALTINES CONTINUE ZOFRAN NEEDED FOR NAUSEA FOLLOW UP WITH YOUR DR IN 1-2 DAYS IF NO BETTER, RETURN TO ER IF SYMPTOMS WORSEN All discharge instructions reviewed with patient and/or family. Voiced understanding. Scripts Dicyclomine HCl (Dicyclomine HCl) 20 Mg Tablet 20 MG PO Q6H for Abdominal Pain, #20 TAB Prov: JAMIE GAMBLE DO 11/10/22 JAMIE GAMBLE DO Nov 09, 2022 23:56
[2022-11-09 23:59] LABS: BACTERIA,URINE NEGATIVE /HPF; SQUAMOUS EPITHELIAL CELL,UR 0-2 /HPF; YEAST,URINE LARGE /HPF
[2022-11-10] LABS: BILIRUBIN,URINE 1+ (NEGATIVE)
[2022-11-10 00:21] LABS: AMPHETAMINE SCREEN, URINE NEGATIVE (NEGATIVE); BARBITURATE SCREEN URINE NEGATIVE (NEGATIVE); BENZODIAZEPINES SCREEN URINE NEGATIVE (NEGATIVE); CANNABINOID SCREEN, URINE NEGATIVE (NEGATIVE); COCAINE SCREEN URINE NEGATIVE (NEGATIVE); METHADONE STAT NEGATIVE (NEGATIVE); OPIATE SCREEN URINE NEGATIVE (NEGATIVE); OXYCODONE STAT NEGATIVE (NEGATIVE); PROPOXYPHENE STAT NEGATIVE (NEGATIVE); TRICYCLIC ANTIDEPRESSANTS SCRE NEGATIVE (NEGATIVE)
[2022-11-10] MEDS ORDERED: RX-DICYCLOMINE 10 MG (BENTYL) CAP PPK#4 PO STA (02:33)
[2022-11-10] MEDS ORDERED: DICY20TA PO (02:36)
[2022-11-10 03:05] VITALS: BP 142/71
--- NOTE | 2022-11-10 08:09 | Diagnostic Imaging Report ---
PROCEDURE: CT abdomen and pelvis without contrast. TECHNIQUE: Multiple contiguous axial images were obtained through the abdomen and pelvis without the use of intravenous contrast. Auto Exposure Controls were utilized during the CT exam to meet ALARA standards for radiation dose reduction. INDICATION: Cramping, nausea, pain, dizziness and malaise. Compared with CT abdomen pelvis 07/28/2020 The gallbladder surgically absent. No pathological ductal dilatation. Spleen, adrenals and pancreas unremarkable. There are a few renal cortical and parapelvic cysts chronic. There is no opaque kidney stone and there is no hydroureteronephrosis. There is aortoiliac and mesenteric atherosclerotic vascular calcifications without aneurysm. There is no ascites, abscess, hematoma or acute fluid collection. There is a normal appendix. There is no diverticulitis. The uterus absent. No adnexal lesion. The urinary bladder appeared unremarkable. There are degenerative changes but no acute bony pathology. No bowel, biliary or urinary tract obstruction. No focal inflammatory process. No ascites. Impression: No acute appearing abnormality. Dictated by: Dictated on workstation # [id number]
== END 2022-11-10 03:05 | disposition home or self-care (01) ==
LOC: EDUNIT# 21:59 → ER 22:03
DX: K52.9 Noninfective gastroenteritis and colitis, unspecified (principal); E11.9 Type 2 diabetes mellitus without complications; Z79.4 Long term (current) use of insulin; Z90.49 Acquired absence of other specified parts of digestive tract
CPT/HCPCS: 74176; 80053; 80306; 81000; 82150; 83690; 83735; 85007; 85027; 87088; 93041; 99284; G0480; 36415; 80320

== ENCOUNTER 2023-04-05 05:34 | Outpatient (CLI) | payer MEDICARE, MEDICAID ==
[~2023-04-05] VITALS: Ht 160 cm; Wt 78.2 kg
[~2023-04-05 05:34] MED LIST changes: +BUSP15TA60 PO; +DICY20TA PO; +DULA1.5P2; +INSU100I88 SQ; +MIRT-68; +ONDA-105; +SERT-413; +TRZ50T
[2023-04-05] MEDS ORDERED: INSULIN NOVOLOG SQ (14:50)
[2023-04-05] MEDS ORDERED: MIRT7.5T8 PO (14:50)
[2023-04-05] MEDS ORDERED: MAG355OR16 PO (14:50)
[2023-04-05] MEDS ORDERED: DULA0.75 SQ (14:50)
== END 2023-04-05 15:00 | disposition home or self-care (01) ==
LOC: PREOP 05:34
PROVIDERS: ATTEND Specialist
DX: Z01.818 Encounter for other preprocedural examination (principal)

== ENCOUNTER 2023-04-13 08:44 | Day surgery (SDC) | payer MEDICARE, MEDICAID ==
[~2023-04-13] VITALS: Ht 160 cm; Wt 78.2 kg
[~2023-04-13 08:44] MED LIST changes: +DULA0.75 SQ; +INSULIN NOVOLOG SQ; +MAG355OR16 PO; +MIRT7.5T8 PO
[2023-04-13] MEDS ORDERED: TIMOLOL 0.5% (CATARACTS) 0.3 ML BTL OU PRN (09:00)
[2023-04-13] MEDS ORDERED: LIDOCAINE PF 1% 2 ML VIAL IR PRN (09:00)
[2023-04-13] MEDS ORDERED: MOXIFLOXACIN OPHTH SOLN 5 MG/ML 0.3 ML SYRINGE OP ONE (09:00)
[2023-04-13] MEDS ORDERED: POVIDONE IODINE OPHTH SOLN 5% 30 ML OP ONE (09:00)
[2023-04-13] MEDS: TETRACAINE 0.5% OPHTH SOLN 4 ML BTL (SINGLE DOSE ONLY) OU PRN ×4 (09:11→09:36)
[2023-04-13] MEDS: PHENYLEPHRINE 10% OPHTH SOLN 5 ML BTL OU SCH ×3 (09:21→09:37)
[2023-04-13] MEDS: TROPICAMIDE 1% OPH SOLN (MYDRIACYL) 15 ML BTL OP SCH ×3 (09:22→09:37)
[2023-04-13 09:23] VITALS: BP 143/73
[2023-04-13] MEDS ORDERED: MIDAZOLAM INJ 2 MG/2 ML VIAL ONE (09:51)
--- NOTE | 2023-04-13 10:04 | Ophthalmologist Pre-Op Note ---
Pre-Operative Progress Note H&P Reviewed The H&P was reviewed, patient examined and no changes noted. Date H&P Reviewed: Apr 13, 2023 Time H&P Reviewed: 10:03 Pre-Op Dx Cataract, Right Eye ADRIANE ORTEGA MD Apr 13, 2023 10:04
--- NOTE | 2023-04-13 10:32 | Ophthalmology Operative Report ---
Cataract removal/placement IOL PREOPERATIVE DIAGNOSIS: Cataract Right Eye POSTOPERATIVE DIAGNOSIS: Cataract Right Eye PROCEDURE: Cataract removal and placement of posterior chamber implant, right eye SURGEON: Rodriguez Ortega ANESTHESIA: Topical with sedation COMPLICATIONS: None ESTIMATED BLOOD LOSS: Minimal DESCRIPTION OF PROCEDURE: After proper informed consent was obtained, the patient, a 73 female, was taken to the Operating Room and the right eye was anesthetized with tetracaine. The right eye was then prepped and draped in the usual manner. A wire lid speculum was placed. A paracentesis was made at the left hand position. Preservative free lidocaine was injected into the anterior chamber followed by viscoelastic. A clear corneal incision was made in the temporal position. A capsulorrhexis was preformed and the central nuclear and cortical material were removed. The posterior capsule was polished and Cain [id number] 18.5 IOL was placed into the capsular bag. The residual viscoelastic was aspirated and balanced saline solution was injected into the anterior chamber. Moxifloxacin was injected into the anterior chamber. The wound was checked and found to be water tight. The patient tolerated the procedure well without complications. RODRIGUEZ ORTEGA MD Apr 13, 2023 10:32
[2023-04-13 10:35] VITALS: BP 160/79
--- NOTE | 2023-04-13 12:56 | Anesthesia-General Post-Op ---
MAC Patient Condition Mental Status/LOC: Same as Preop Cardiovascular: Satisfactory Nausea/Vomiting: Absent Respiratory: Satisfactory Pain: Controlled Complications: Absent Post Op Complications Complications None Follow Up Care/Instructions Patient Instructions None needed. Anesthesiology Discharge Order Discharge Order Patient is doing well, no complaints, stable vital signs, no apparent adverse anesthesia problems. No complications reported per nursing. ERIKA DUENAS CRNA Apr 13, 2023 12:56
== END 2023-04-13 10:39 | disposition home or self-care (01) ==
LOC: SDC 08:44
PROVIDERS: ATTEND Specialist
DX: E11.36 Type 2 diabetes mellitus with diabetic cataract (principal); H25.9 Unspecified age-related cataract; Z79.4 Long term (current) use of insulin; Z79.85 Long-term (current) use of injectable non-insulin antidiabetic drugs
CPT/HCPCS: 66984; V2632

== ENCOUNTER 2023-04-17 09:43 | Outpatient (CLI) | payer MEDICARE, MEDICAID | END 2023-04-17 13:46 | disposition home or self-care (01) | LOC: PREOP 09:43 | PROVIDERS: ATTEND Specialist | DX: Z01.818 Encounter for other preprocedural examination (principal) ==